=== PATIENT | female | born 1970 | race Caucasian/White ===

== ENCOUNTER 2019-04-23 17:28 | Emergency (ER) | payer BC, SELFPAY ==
[2019-04-23 17:29] VITALS: BP 146/91; PULSE 79; RESP 12; TEMP 36.4; O2SAT 100; BMI 24.5
--- NOTE | 2019-04-23 17:45 | CT_ITS ---
STUDY: CT BRAIN WITH AND WITHOUT CONTRAST REASON FOR EXAM: Female, 48 years old. Headache RADIATION DOSAGE (If Supplied By Facility): DLP = ( 1490.98 ) mGycm TECHNIQUE: Transaxial CT imaging of the brain was performed pre and post contrast administration. The examination was performed with intravenous administration of 100ml ml of Isovue 300 contrast material. Individualized dose optimization techniques were used for this CT. COMPARISON: CT head July 08, 2008 FINDINGS: There is no acute bleed or infarct. There are normal white matter tracts. There is no abnormal enhancement following contrast administration. There are no intracranial masses identified. The ventricles are normal in configuration. There is no hydrocephalus. The visualized paranasal sinuses are clear. The mastoid air cells are well aerated. There is no skull fracture. CT/Brain/Head W/WO Contrast IMPRESSION: No acute intracranial abnormality. Electronically Signed: Lucio Diamond, at 19:20 EDT Tel , Service support ,
[2019-04-23] MEDS: 0.9% Normal Saline 1,000 ML 1000 ML IV (18:15)
[2019-04-23] MEDS: Metoclopramide 10 MG/2 ML Vial IV (18:15)
[2019-04-23] MEDS: DiphenhydrAMINE 50 MG/ML Syringe 25 MG IV (18:15)
--- NOTE | 2019-04-23 18:21 | ED.RN ---
LONG 20 GAUGE ANGIO PLACED TO RT BRACHIAL VEIN UNDER GUIDED ULTRASOUND. PT TOLERATED WELL
[2019-04-23 18:25] LABS: Absolute Lymphocyte Count 1.25 X10^3/ul (0.83-4.51); Absolute Neutrophil Count 6.3 X10^3/uL (2.0-7.7); Basophil# 0.01 X10^3/uL; Basophil% 0.1 % (0-1); Eosinophil# 0.11 X10^3/uL; Eosinophils% 1.3 % (0-5); Hematocrit 40.8 % (37-47); Lymphocyte # 1.25 X10^3/ul (4.0); Lymphocyte % 15.3 % (19-41); Mean Corp Hgb Conc 34.3 g/gl (32-36); Mean Corpuscular Hgb 28.6 pg (27.0-32.0); Mean Corpuscular Volume 83.4 fL (81-99); Monocyte# 0.52 X10^3/uL; Monocyte% 6.4 % (0-10); Neutrophil # 6.27 X10^3/uL (2.7-7.7); Neutrophil % 76.8 % (47-70); POSITIVE COUNT NO; POSITIVE DIFFERENTIAL NO; POSITIVE MORPHOLOGY NO; Platelet Count 201 K/mm3 (150-450); RBC Distribution Width CV 13.1 % (11.6-14.6); RBC Distribution Width SD 39.5 fl (35.1-43.9); Red Blood Count 4.89 M/mm3 (4.2-5.4); White Blood Count 8.2 K/mm3 (4.4-11.0)
[2019-04-23 18:44] LABS: Anion Gap 6 (5-15); BUN 13 mg/dL (7-18); BUN/Creat Ratio 14.8 RATIO (10-20); Calcium,Total 9.4 mg/dL (8.5-10.1); Chloride 103 mmol/L (98-107); Creatinine, Serum 0.88 mg/dL (0.55-1.02); EST Glomerular Filtration Rate 73 mL/min (>60); Est Glom Filt Rate - Afr Amer 88 mL/min (>60); Estimated Creatinine Clearance 67.51 ml/min; Glucose 128 mg/dL (74-106); Potassium 3.4 mmol/L (3.5-5.1); Sodium Level 134 mmol/L (136-145)
[2019-04-23] MEDS: MethylPREDNISolone 125 MG/2 ML Vial IV (20:02)
[2019-04-23] MEDS: 0.9% Normal Saline 1,000 ML 150 ML IV (20:02)
--- NOTE | 2019-04-23 21:58 | ED.DCSUM_ITS ---
- ER Visit Summary Date of Service: 04/23/19 Chief Complaint: Headache History of Present Illness: The patient is a 48 F who presents with frontal headache that started late this morning. She describes some blurred vision along with nausea and vomiting. She states is a history of migraines but has not had a migraine in several years. Past history significant for factor V Leiden and prior PE. She is not currently on any anticoagulants. Patient denies any head trauma or URI symptoms. Physical Examination: Vital signs unremarkable. Patient lying in bed. She is anxious and tearful. Head and neck examination is unremarkable with no meningismus. Heart is regular rate and rhythm. Lung sounds are clear. Abdomen is soft and nontender. Neuro exam is normal. Test Results: CBC is unremarkable. Chemistry studies reveal a sodium of 134, potassium 3.4. CT with IV contrast was obtained. There is no acute abnormality noted. Emergency Department Course and Treatment: Patient was treated with Toradol, Reglan, Benadryl, and IV fluids. On repeat evaluation she reported minimal improvement. She received IV Depakote and Solu-Medrol. On repeat evaluation patient states that she is much improved. She will be discharged home with her . Treatment Plan: [] Disposition: Discharge Impression: Migraine, improved This note was generated with [employer] dictation software. It may contain incorrect words, spelling, and punctuation that were not noted in review of the chart prior to signing ED Disposition - Plan for ED Patient: Disposition: Home or Assisted Living Instructions: ED Headache Migraine Referrals: Justus Quiñones MD [Primary Care Provider] - 1-2 Weeks
[2019-04-23 22:00] VITALS: BP 98/60; PULSE 59; RESP 16; O2SAT 96
== END 2019-04-23 22:21 | disposition home or self-care (01) ==
PROVIDERS: Emergency Provider Emergency Medicine; Family Provider Family Medicine; PCP Family Medicine
DX: G43.909 Migraine, unspecified, not intractable, without status migrainosus (principal); D68.51 Activated protein C resistance; Z86.711 Personal history of pulmonary embolism; K21.9 Gastro-esophageal reflux disease without esophagitis
CPT/HCPCS: 70470; 80048; 85025; 96361; 96365; 96375; 99285; J7030; Q9967; A4216

== ENCOUNTER 2020-02-15 11:16 | Emergency (ER) | payer SELFPAY ==
[2019-07-16 10:46] VITALS: BMI 24.5
[2020-02-15 11:17] VITALS: BP 151/107; PULSE 92; RESP 16; TEMP 36.7; O2SAT 100; BMI 25.0
--- NOTE | 2020-02-15 11:27 | RAD_ITS ---
STUDY: X-RAY CHEST REASON FOR EXAM: Female, 49 years old. Cough, sob, hoarse, night sweats TECHNIQUE: AP upright portable view. COMPARISON: AP upright portable view. FINDINGS: The lungs are clear and expanded. There is no demonstrated pleural abnormality. Normal size heart. Normal mediastinum and sammie. Normal visualized pulmonary arteries. Normal visualized aortic arch and descending thoracic aorta. Normal visualized thoracic spine. Normal visualized ribs, clavicles, and shoulders. There is no demonstrated abnormality of the visualized soft tissue structures of the upper abdomen. RAD/Chest 1 View (Portable) IMPRESSION: Normal x-ray examination of the chest and unchanged since 10/09/2016. Electronically Signed: Salomon Varela MD at 12:15 EDT , Service support ,
--- NOTE | 2020-02-15 12:24 | ED.DCSUM_ITS ---
- ER Visit Summary Date of Service: 02/15/20 Chief Complaint: Shortness of breath History of Present Illness: The patient is a 49 F who presents with shortness of breath. She has had this for 2 days. She feels like she has a lot of nasal congestion and feels like she has hard time getting a deep breath. She has had a nonproductive cough. She has had some postnasal drip and drainage. Her voice is hoarse. She tried Tylenol for headache which did improve. She denies a sore throat. No fevers. Denies any contact with anybody with coronavirus. Physical Examination: Vital signs reviewed. HEENT exam unremarkable, except for some slight swollen turbinates bilaterally. Heart is regular rate and rhythm without murmurs. Lungs are clear to auscultation. Abdomen is soft and nontender. Extremities reveal no edema. Skin exam normal. Neurologic exam normal. Test Results: Chest x-ray normal Emergency Department Course and Treatment: The patient's lungs are clear and she has a normal x-ray. I feel that her shortness of air is likely due to her nasal congestion. I will treat her with Mucinex D and Flonase. She will follow-up with her PCP. Treatment Plan: [] Disposition: Discharge Impression: Sinusitis This note was generated with [employer] dictation software. It may contain incorrect words, spelling, and punctuation that were not noted in review of the chart prior to signing ED Disposition - Plan for ED Patient: Disposition: Home or Assisted Living Instructions: ED Sinusitis No Abx Prescriptions: Fluticasone 0.05% [Flonase Nasal [place]] 1 spray NASAL BID #1 bottle Transmission Status: Pending to [facility] Guaifenesin/Pseudoephedrne HCl [Mucinex D ER 600-60 mg Tablet] 1 ea PO BID #14 [id number].er.[id number] Transmission Status: Pending to [facility] [address] Referrals: Justus Quiñones MD [Primary Care Provider] -
== END 2020-02-15 12:52 | disposition home or self-care (01) ==
PROVIDERS: Emergency Provider Emergency Medicine; PCP Family Medicine
DX: J32.9 Chronic sinusitis, unspecified (principal); E78.00 Pure hypercholesterolemia, unspecified
CPT/HCPCS: 71045; 99282

== ENCOUNTER 2020-09-29 07:52 | Emergency (ER) | payer MEDICAID, SELFPAY ==
[2020-09-29 07:54] VITALS: BP 153/96; PULSE 79; RESP 19; TEMP 36.8; O2SAT 100; BMI 26.5
--- NOTE | 2020-09-29 08:07 | EKG12_ITS ---
Test Reason : CP Blood Pressure : / mmHG Vent. Rate : 073 BPM Atrial Rate : 073 BPM P-R Int : 148 ms QRS Dur : 074 ms QT Int : 388 ms P-R-T Axes : 030 036 032 degrees QTc Int : 427 ms Normal sinus rhythm with sinus arrhythmia Septal infarct , age undetermined Abnormal ECG Confirmed by ASHLEY CARLSON, OCTAVIA ([id number]), art editor TAN SANCHEZ ([id number]) on 09/30/2020 10:50:39 AM Referred By: Confirmed By:OCTAVIA RAMIREZ MD
--- NOTE | 2020-09-29 08:07 | RAD_ITS ---
STUDY: X-RAY CHEST REASON FOR EXAM: Female, 49 years old. Sternal pain radiating to left neck and shoulder. TECHNIQUE: Single AP portable view of the chest. COMPARISON: Comparison is made with prior study dated 02/15/2020. FINDINGS: EKG electrodes are seen. The lungs are clear and expanded. Scattered calcified granulomas. There is no demonstrated pleural abnormality. Normal size heart. Normal mediastinum and sammie. Normal visualized pulmonary arteries. Normal visualized aortic arch and descending thoracic aorta. Normal visualized thoracic spine. There is evidence of prior fusion in the lower cervical spine. There is no demonstrated abnormality of the visualized soft tissue structures of the upper abdomen. RAD/Chest 1 View (Portable) IMPRESSION: No acute abnormality is seen. Electronically Signed: Phuc Noonan, at 9:03 EST , Service support ,
--- NOTE | 2020-09-29 08:07 | CT_ITS ---
STUDY: CTA CHEST REASON FOR EXAM: Female, 49 years old. STERNAL CP RADIATING DOWN ARM, HX PE, FACTOR V BLOOD DISORDER RADIATION DOSAGE (If Supplied By Facility): CTDIvol = ( 8.84 ) mGy, DLP = ( 313.59 ) mGycm TECHNIQUE: The examination was performed with the intravenous administration of IV 100mL Isovue-370. Post-processing of the angiographic images was performed, with multiplanar reformation and 3D reconstruction. Individualized dose optimization techniques were used for this CT. COMPARISON: Comparison is made with prior study dated 12/01/2011. FINDINGS: Small benign-appearing bilateral axillary lymph nodes. Normal enhancement of the main pulmonary artery and right and left pulmonary arteries. Normal enhancement of the bilateral peripheral pulmonary arteries. There is no demonstrated pulmonary embolism. Normal thoracic aorta and visualized great vessels. There is no demonstrated aortic dissection. Normal heart and pericardium. Normal mediastinum. Normal hilar regions. Normal visualized trachea and bronchi. The lungs are well expanded. Stable minimal scarring at the right lung base. Normal pleura. Normal chest wall structures. There are degenerative changes of thoracic spine. Normal visualized upper abdomen. CT/CTA Chest W/WO Contrast IMPRESSION: Normal CTA chest examination, without a demonstrated pulmonary embolism or arterial dissection. No acute abnormality is seen. Electronically Signed: Phuc Noonan, at 9:02 EST , Service support ,
--- NOTE | 2020-09-29 08:10 | ED.VISSUMM ---
- ER Visit Summary Date of Service: 09/29/20 Chief Complaint: [Chest and back pain] History of Present Illness: The patient is a 49 F [presents to the emergency department with pain in her back that radiates through to the left side of her chest. Patient states that she was laying in bed around 7 AM when she scooted her moved and developed sudden onset of severe pain in her neck and upper back that radiated through to the front of her chest. Pain is worse with movement and taking a deep breath. She does have history of PE 30 years ago after a surgery. Patient also with history of factor V Leiden. Patient denies recent travel or surgery. She denies recent illness. She denies fever or cough. She denies any COVID-19 exposures. She denies nausea or vomiting. She is not had discomfort like this before. She rates her pain an 8 out of 10. She describes the pain as sharp and stabbing.] Physical Examination: [HEENT-PERRLA, EOMI. Cranial nerves II through XII grossly intact. TMs clear. Mucous membranes moist. No adenopathy. Cardiovascular-regular rate and rhythm without murmur or ectopy Lungs-clear to auscultation, chest wall stable without crepitus or subcu emphysema Abdomen-normoactive bowel sounds, soft, nontender, no rebound or rigidity, no peritoneal signs. Back exam-patient has no tenderness over the thoracic or lumbar spine. No tenderness over the C-spine. Patient does have pain with movement that seems to reproduce her pain. Tendon reflexes are plus 2 out of 4 bilaterally in the upper and lower extremities. Extremities-intact ?4, normal range of motion, normal pulses, atraumatic] Test Results: [EKG obtained on arrival shows sinus rhythm with a ventricular rate 73 bpm with no acute segment changes.] CBC with differential should awaken 4.1, hemoglobin 12.8, hematocrit 40, placed 284. Chemistries unremarkable. Troponin is less than 0.015. CTA of the chest was normal. There is no evidence of PE or dissection. Emergency Department Course and Treatment: [IV line established on arrival. Patient was given morphine and Zofran. Patient had already received aspirin by EMS. She did have good pain relief initially however after going to CT and moving around her pain started to come back and she required more pain medication. I ordered a milligram of Dilaudid as well as a milligram of Ativan. Patient continues to state that the pains, coming from her upper left back and neck kind of radiating into her left shoulder. I suspect likely musculoskeletal etiology for her symptoms.] She has no radiculopathic symptoms. Treatment Plan: [Follow-up with primary care physician in 3 to 5 days. Patient given a prescription for Flexeril and [place]. Advised to return if worsening pain, increasing shortness of breath, or condition should worsen anyway.] Disposition: [Discharged home in stable condition] Impression: [Neck and back pain Atypical chest pain] This note was generated with [employer] dictation software. It may contain incorrect words, spelling, and punctuation that were not noted in review of the chart prior to signing ED Disposition - Plan for ED Patient: Referrals: Justus Quiñones MD [Primary Care Provider] -
[2020-09-29 08:17] LABS: Absolute Lymphocyte Count 1.59 X10^3/uL (0.83-4.51); Absolute Neutrophil Count 1.9 X10^3/uL (2.0-7.7); Basophil# 0.02 X10^3/uL; Basophil% 0.5 % (0-1); Eosinophil# 0.13 X10^3/uL; Eosinophils% 3.2 % (0-5); Hematocrit 40.4 % (37-47); Hemoglobin 12.8 g/dL (12.0-15.0); Lymphocyte # 1.59 X10^3/ul (4.0); Lymphocyte % 39.2 % (19-41); Mean Corp Hgb Conc 31.7 g/dL (32-36); Mean Corpuscular Hgb 27.1 pg (27.0-32.0); Mean Corpuscular Volume 85.4 fL (81-99); Mean Platelet Vol. 11.2 fl (6.2-12.0); Monocyte# 0.43 X10^3/uL; Monocyte% 10.6 % (0-10); NRBC Flagged by Analyzer 0 % (0-5); Neutrophil # 1.87 X10^3/uL (2.7-7.7); Platelet Count 284 K/mm3 (150-450); RBC Distribution Width CV 13.8 % (11.6-14.6); RBC Distribution Width SD 43.2 fl (35.1-43.9); Red Blood Count 4.73 M/mm3 (4.2-5.4); White Blood Count 4.1 K/mm3 (4.4-11.0)
[2020-09-29] MEDS: Morphine 4 MG/ML Syringe IV (08:18)
[2020-09-29] MEDS: Ondansetron 4 MG/2 ML Vial IV (08:19)
[2020-09-29] MEDS: 0.9% Normal Saline 1,000 ML 150 ML IV (08:23)
[2020-09-29 08:35] LABS: Anion Gap 4 (5-15); BUN 14 mg/dL (7-18); BUN/Creat Ratio 14.9 RATIO (10-20); Calcium,Total 8.9 mg/dL (8.5-10.1); Chloride 111 mmol/L (98-107); Creatinine, Serum 0.94 mg/dL (0.55-1.02); EST Glomerular Filtration Rate 67 mL/min (>60); Est Glom Filt Rate - Afr Amer 81 mL/min (>60); Estimated Creatinine Clearance 62.52 ml/min; Glucose 98 mg/dL (74-106); Potassium 4.2 mmol/L (3.5-5.1); Sodium Level 141 mmol/L (136-145)
[2020-09-29 09:13] VITALS: BP 135/99; PULSE 87; RESP 19; O2SAT 99
--- NOTE | 2020-09-29 09:13 | DCINST.ED_ITS ---
ED Disposition - Plan for ED Patient: Instructions: ED Chest Pain Atypical Unkn Cause, ED Spasm Back No Trauma Prescriptions: cycloBENZAPRine HCl [Flexeril] 10 mg PO TID PRN #20 tab PRN Reason: Muscle Spasm Prescription Printed Hydrocodone Bitart/Apap 5-325 [[place] 5MG-325MG] 1 tab PO Q4H PRN PRN 2 Days #15 tab PRN Reason: Pain Prescription Printed Referrals: Justus Quiñones MD [Primary Care Provider] - 3-5 Days
[2020-09-29] MEDS: LORazepam 2 MG/ML Syringe 1 MG IV (09:23)
[2020-09-29] MEDS: HYDROmorphone 1 MG/ML Syringe IV (09:23)
[2020-09-29 09:37] VITALS: RESP 18
== END 2020-09-29 09:39 | disposition home or self-care (01) ==
LOC: ED 08:35
PROVIDERS: Emergency Provider Emergency Medicine; PCP Family Medicine
DX: R07.89 Other chest pain (principal); M54.9 Dorsalgia, unspecified; M54.2 Cervicalgia; D68.51 Activated protein C resistance; Z86.711 Personal history of pulmonary embolism
CPT/HCPCS: 36415; 71045; 71275; 80048; 84484; 85025; 93005; 96361; 96374; 96375; 99285; J7030; Q9967; A4216; J2405

== ENCOUNTER 2020-11-02 15:00 | Emergency (ER) | payer MEDICAID, SELFPAY ==
[2020-11-02 15:02] VITALS: BP 162/112; PULSE 95; RESP 20; TEMP 36.3; O2SAT 100; BMI 26.7
--- NOTE | 2020-11-02 15:28 | ED.VISSUMM ---
- ER Visit Summary Date of Service: 11/02/20 Chief Complaint: Rash, possible allergic reaction History of Present Illness: The patient is a 50 F who presents with rash and possible allergic reaction that began today. Patient states this started approximately 30 minutes after taking Tessalon Perles. Patient states it has been constant. Patient denies any difficulty breathing or difficulty swallowing. Patient states she is also on antibiotics for a sinus infection. Patient does admit to a sinus headache and pressure. Patient denies any chest pain. Patient denies any fevers or chills. Patient states she did have a COVID-19 test recently which was negative. Physical Examination: Vital signs are stable. Patient is afebrile. Patient is in no acute distress. Oral mucosa is pink and moist. Oropharynx is clear. Airway is patent. Neck is supple. Trachea is midline. There is no JVD. Heart was regular rate and rhythm. Lungs are clear and equal bilaterally. There is good respiratory effort noted. Abdomen is soft. Bowel sounds are normal. There is no tenderness. Cranial nerves II through XII are intact. There are no focal motor or sensory deficits noted. Skin is warm and dry. There is a patchy urticarial rash noted over the face, chest, back, and abdomen. There are also some urticaria noted on the upper extremities. Emergency Department Course and Treatment: Patient was given a dose of Benadryl and prednisone here. Patient was given a prescription for prednisone. Patient was instructed to follow-up with her primary care physician in 5 to 7 days. Patient was instructed to stop taking the Tessalon Perles. Patient was instructed to take other ztpy-dxz-edjelrr cough medications as needed. Patient understood and was agreeable with the plan. All questions were answered. Disposition: Discharge home Impression: 1. Urticaria This note was generated with [employer] dictation software. It may contain incorrect words, spelling, and punctuation that were not noted in review of the chart prior to signing ED Disposition - Plan for ED Patient: Disposition: Home or Assisted Living Diagnosis: Urticaria Instructions: ED General Allergic Reactions Prescriptions: Prednisone [Deltasone] 60 mg PO DAILY #12 tab Prescription Printed Referrals: Justus Quiñones MD [Primary Care Provider] - 5-7 Days
[2020-11-02] MEDS: predniSONE 20 MG Tablet 60 MG PO (15:52)
[2020-11-02] MEDS: DiphenhydrAMINE 25 MG Capsule PO (15:52)
== END 2020-11-02 15:52 | disposition home or self-care (01) ==
PROVIDERS: Emergency Provider Emergency Medicine; PCP Family Medicine
DX: L50.9 Urticaria, unspecified (principal); R05 Cough; R11.0 Nausea; R51.9 Headache, unspecified; K21.9 Gastro-esophageal reflux disease without esophagitis; E78.00 Pure hypercholesterolemia, unspecified; D68.51 Activated protein C resistance; F41.9 Anxiety disorder, unspecified; Z86.711 Personal history of pulmonary embolism
CPT/HCPCS: 99283

== ENCOUNTER 2020-11-09 11:17 | Emergency (ER) | payer MEDICAID, SELFPAY ==
[2020-11-09 11:17] VITALS: BP 150/92; PULSE 104; RESP 19; TEMP 36.3; O2SAT 100; BMI 28.1
--- NOTE | 2020-11-09 11:28 | EKG12_ITS ---
Test Reason : CP Blood Pressure : / mmHG Vent. Rate : 094 BPM Atrial Rate : 094 BPM P-R Int : 144 ms QRS Dur : 086 ms QT Int : 342 ms P-R-T Axes : 048 023 077 degrees QTc Int : 427 ms Normal sinus rhythm Normal ECG Confirmed by CHIO CARLSON, CUCA ([id number]), editorial manager TAN SANCHEZ ([id number]) on 11/14/2020 9:26:36 AM Referred By: SOHAN Confirmed By:MILLY BARROSO MD
--- NOTE | 2020-11-09 11:29 | ED.VISSUMM ---
- ER Visit Summary Date of Service: 11/09/20 Chief Complaint: Epigastric abdominal pain History of Present Illness: The patient is a 50 F who presents with epigastric abdominal pain. She has been dealing with this issue for quite some time but got worse today. She describes a burning in her epigastric region. Does not radiate. Nothing makes it better or worse. She has nausea without vomiting. No diarrhea or constipation. She denies any urinary symptoms. She tried Phenergan at home. She is already on Protonix and famotidine. She has had 3 C-sections but no other abdominal surgeries. She denies fevers. She has been following with her PCP and they have been trying to do some outpatient procedures and tests but her insurance has denied 1 of these but she was not sure specifically which one. Physical Examination: Vital signs reviewed. HEENT exam unremarkable. Heart is regular rate and rhythm without murmurs. Lungs are clear to auscultation. Abdomen is soft with epigastric tenderness to palpation but there is no guarding or rebound tenderness. Extremities reveal no edema. Skin exam normal. Neurologic exam normal. Test Results: Laboratory studies are unremarkable except for creatinine 1.04. EKG was normal. Emergency Department Course and Treatment: The patient was given a GI cocktail and Protonix IV. She states that the burning sensation related but she is still having some pain. I will give her 1 dose of morphine here for pain. I will add Carafate to her medication regimen to see if this will help. I feel she needs GI follow-up for likely endoscopy. Treatment Plan: [] Disposition: Discharge Impression: Acute gastritis This note was generated with [employer] dictation software. It may contain incorrect words, spelling, and punctuation that were not noted in review of the chart prior to signing ED Disposition - Plan for ED Patient: Disposition: Home or Assisted Living Instructions: ED Gastritis (Adult) Prescriptions: Sucralfate [Carafate] 1 gm PO 4X/DAY #120 tab Transmission Status: Pending to [facility] [facility] Referrals: Justus Quiñones MD [Primary Care Provider] -
[2020-11-09] MEDS: Mag Hydrox/Al Hydrox/Simeth 30 ML UDC PO (11:52)
[2020-11-09 12:00] LABS: Absolute Lymphocyte Count 2.68 X10^3/uL (0.83-4.51); Absolute Neutrophil Count 3.2 X10^3/uL (2.0-7.7); Basophil# 0.01 X10^3/uL; Basophil% 0.1 % (0-1); Eosinophil# 0.16 X10^3/uL; Eosinophils% 2.4 % (0-5); Hematocrit 43.8 % (37-47); Hemoglobin 14.5 g/dL (12.0-15.0); Lymphocyte # 2.68 X10^3/ul (4.0); Lymphocyte % 39.9 % (19-41); Mean Corp Hgb Conc 33.1 g/dL (32-36); Mean Corpuscular Hgb 27.8 pg (27.0-32.0); Mean Corpuscular Volume 83.9 fL (81-99); Mean Platelet Vol. 11.1 fl (6.2-12.0); Monocyte# 0.61 X10^3/uL; Monocyte% 9.1 % (0-10); NRBC Flagged by Analyzer 0 % (0-5); Neutrophil # 3.22 X10^3/uL (2.7-7.7); Neutrophil % 48.1 % (47-70); Platelet Count 298 K/mm3 (150-450); RBC Distribution Width CV 17.1 % (11.6-14.6); RBC Distribution Width SD 45.6 fl (35.1-43.9); Red Blood Count 5.22 M/mm3 (4.2-5.4); White Blood Count 6.7 K/mm3 (4.4-11.0)
[2020-11-09 12:11] LABS: AST(SGOT) 14 U/L (15-37); Alanine Aminotransfer ALT/SGPT 27 U/L (13-56); Albumin, Serum 4.1 g/dL (3.2-5.0); Alkaline Phosphatase 92 U/L (45-117); Anion Gap 6 (5-15); BUN 24 mg/dL (7-18); BUN/Creat Ratio 23.1 RATIO (10-20); Bilirubin, Direct 0.09 mg/dL (0.00-0.30); Calcium,Total 10.3 mg/dL (8.5-10.1); Chloride 105 mmol/L (98-107); Creatinine, Serum 1.04 mg/dL (0.55-1.02); EST Glomerular Filtration Rate 60 mL/min (>60); Est Glom Filt Rate - Afr Amer 72 mL/min (>60); Estimated Creatinine Clearance 55.88 ml/min; Globulin 4.2 g/dL (2.2-4.2); Glucose 89 mg/dL (74-106); Lipase 216 U/L (73-393); Potassium 3.8 mmol/L (3.5-5.1); Protein, Total 8.3 g/dL (6.4-8.2); Sodium Level 138 mmol/L (136-145)
[2020-11-09 12:35] VITALS: BP 114/98; PULSE 72; RESP 15; O2SAT 99
[2020-11-09] MEDS: Sucralfate 1 GM Tablet PO (12:49)
== END 2020-11-09 12:49 | disposition home or self-care (01) ==
PROVIDERS: Emergency Provider Emergency Medicine; PCP Family Medicine
DX: K29.00 Acute gastritis without bleeding (principal)
CPT/HCPCS: 80048; 80076; 83690; 85025; 93005; 96374; 99284; J7050; A4216; J3490

== ENCOUNTER 2021-04-17 11:10 | Emergency (ER) | payer MEDICAID, SELFPAY ==
[2021-04-17 11:11] VITALS: PULSE 134; RESP 30; TEMP 36.6; O2SAT 100; BMI 25.5
[2021-04-17 11:13] VITALS: BP 177/113
--- NOTE | 2021-04-17 11:31 | EKG12_ITS ---
Test Reason : Blood Pressure : / mmHG Vent. Rate : 113 BPM Atrial Rate : 113 BPM P-R Int : 140 ms QRS Dur : 078 ms QT Int : 340 ms P-R-T Axes : 063 035 025 degrees QTc Int : 466 ms Sinus tachycardia with Premature atrial complexes ST & T wave abnormality, consider lateral ischemia Abnormal ECG Confirmed by ASHLEY CARLSON, OCTAVIA ([id number]), metropolitan editor KEN KEENAN ([id number]) on 04/21/2021 8:12:42 AM Referred By: AMILCAR Confirmed By:OCTAVIA RAMIREZ MD
--- NOTE | 2021-04-17 11:32 | EDS_ITS ---
HPI History of Present Illness Chief Complaint: Chest Pain Detail of Chief Complaint: Primary complaint is lightheadedness and concern for heatstroke Informant: patient Onset/Context/Timing Onset: Hours Context: Sudden Onset Timing: Continuous Quality: Cramping thighs, tingling, lightheadedness and dry mouth Location: Mowing the yard Current Severity: Moderate Maximum Severity: Severe Worsened by: Lack of p.o. intake Relieved by: None Associated Symptoms Associated Symptoms: Lightheadedness Narrative Narrative: Patient is a 50-year-old woman with history of GERD, hiatal hernia, factor V Leiden mutation with prior history of PE and hyperlipidemia who presents with sudden onset of lightheadedness. She states she began mowing at 930. She stopped to take a drink of Gatorade. She became lightheaded. She is complaining of cramps in her lower extremities and numbness. She complains of intermittent chest discomfort. She also reports shortness of breath and being anxious. Patient denies history of coronary disease. Patient denies leg pain, swelling discoloration. Patient denies recent travel or surgery. She denies history of coronary disease. She denies headache, visual, ocular auditory symptoms. She does report dry mouth and lightheadedness. She denies black or maroon-colored stool. She has not urinated since this morning. She has been under significant stress with recent of her dad and other issues in the family. Prior similar symptoms: No Recent Illness/Hospitalization: No [facility] Medical History Anxiety Factor 5 Leiden mutation, heterozygous Hypercholesteremia Hyperlipidemia Home Medications pantoprazole 40 mg PO DAILY #30 tab 10/10/16 [Rx Last Taken Unknown] pravastatin 20 mg PO DAILY 09/29/20 [History Last Taken Unknown] Allergy/AdvReac Type Severity Reaction Status Date / Time latex Allergy Rash Verified 04/17/21 11:11 Penicillins Allergy Other Verified 04/17/21 11:11 acetaminophen [From Tylenol] AdvReac Nausea Verified 04/17/21 11:11 naproxen [From Aleve] AdvReac Nausea/Vom/ Verified 04/17/21 11:11 Diarrhea Rrvfnas-Bhb-Alu Reductase AdvReac Other Verified 04/17/21 11:11 Inhibitor Family History Mother Diabetes Grandmother Cervical cancer Surgical History H/O neck surgery S/P S/P hysterectomy Social History Smoking Status: Never smoker alcohol intake: current alcohol intake frequency: holidays/special occasions only substance use type: does not use caffeine: Yes what type of physical activity do you participate in: none seatbelt use: sometimes do you feel safe at home: Yes 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 [employer] ED Constitutional Constitutional ED: Denies chills, fever(s) or subjective Eyes Eyes: Denies blurry vision, change in vision or diplopia ENT ENT ED: Denies ear pain, rhinorrhea or sore throat Cardiovascular Cardiovascular: Reports chest pain and palpitations; Denies orthopnea, paroxysmal nocturnal dyspnea or racing heartbeat Respiratory/Chest Respiratory/Chest: Reports dyspnea; Denies cough, dyspnea on exertion, orthopnea, paroxysmal nocturnal dyspnea or sputum Gastrointestinal Gastrointestinal: Reports nausea; Denies abdominal pain, constipation, diarrhea or vomiting Genitourinary Genitourinary ED: Denies dysuria or hematuria Musculoskeletal Musculoskeletal: Reports myalgias; Denies arthralgias, back pain or neck pain Integumentary Denies abscess, Abrasions or rash Neurologic Neurologic: Reports paresthesias and weakness; Denies headache(s) Psychiatric Psychiatric: Reports anxiety EXAM Physical Exam Const Vital Signs: 04/17/21 11:11 04/17/21 11:13 04/17/21 11:15 Temperature 98 F Temperature Source Oral Pulse Rate 134 H Respiratory Rate 30 H Respiratory Effort Short of Breath Blood Pressure 177/113 H Blood Pressure Mean 134 Pulse Ox 100 Oxygen Delivery Method Room Air 04/17/21 13:41 Temperature Temperature Source Pulse Rate 74 Respiratory Rate 16 Respiratory Effort Blood Pressure 117/69 Blood Pressure Mean 85 Pulse Ox 100 Oxygen Delivery Method Room Air Positive well nourished and well developed General Appearance ED: well developed and other Patient is breathing rapidly and appears anxious. HEENT Reports TM's clear and moist mucous membranes Negative for trauma or tenderness Tympanic Membrane ED: Yes TM's clear Eyes PERRL and EOMs intact bilaterally General Eye ED: Negative for pale conjunctiva or scleral icterus Neck no lymphadenopathy, supple and no JVD Chest Wall inspection of chest normal Resp normal respiratory effort and clear to auscultation bilaterally Effort and Inspection: Negative for pain with movement Auscultation: Negative for diminished lung sounds Cardio regular rhythm, S1 normal heart sound, S2 normal heart sound and no murmurs Rate: tachycardic GI normal to inspection, nondistended, normoactive bowel sounds and non-tender Palpation: soft Back/Spine no CVA tenderness Thoracic Spine / Upper Back: Negative for paraspinal muscle tenderness Extremity normal to inspection Extremity Narrative: There is no asymmetry, swelling, discoloration, leg vein distention, palpable cords or tenderness along the distribution of the deep venous system. General Extremety ED: Negative for edema or tenderness General Extremity: Negative for edema Neuro oriented x3, CN's II-XII intact bilaterally and no sensory deficits noted Sensorium / Orientation: alert Motor Exam: strength 5/5 throughout Psych mental status grossly normal Skin no rashes or lesions noted and no wounds MDM MDM MDM Narrative Medical decision making narrative: Suspect this is heat related. 2 L of normal saline was ordered. Electrolyte panel was ordered to assess renal function. CBC to rule out anemia. EKG was obtained per nurse protocol. Patient was treated with Zofran for nausea. I was then informed that she feels anxious. She was treated with Ativan. Lab Data Attestation: I reviewed the patient's lab results. Labs: Laboratory Results - last 24 hr 04/17/21 04/17/21 11:20 11:20 WBC 7.2 RBC 5.10 Hgb 12.9 Hct 40.7 MCV 79.8 L MCH 25.3 L MCHC 31.7 L RDW Std Deviation 42.7 RDW Coeff of Marcie 14.8 H Plt Count 347 MPV 12.0 Immature Gran % (Auto) 0.300 Neut % (Auto) 38.0 L Lymph % (Auto) 50.6 H [place] % (Auto) 9.3 Eos % (Auto) 1.5 Baso % (Auto) 0.3 Absolute Neuts (auto) 2.8 Absolute Lymphs (auto) 3.66 Nucleated RBC % 0 Sodium 140 Potassium 3.3 L Chloride 104 Carbon Dioxide 20.0 L Anion Gap 16 H BUN 10 Creatinine 1.17 H Estim Creat Clear Calc 49.67 Est GFR (MDRD) Af Amer 63 Est GFR (MDRD) Non-Af 52 L BUN/Creatinine Ratio 8.5 L Glucose 103 Calcium 9.8 Total Bilirubin 0.80 AST 20 ALT 19 Alkaline Phosphatase 103 Total Protein 7.8 Albumin 4.2 Globulin 3.6 Albumin/Globulin Ratio 1.2 She was informed of her lab results and importance of hydrating prior to activity and during activity. EKG Initial EKG: Attestation: I personally reviewed and interpreted this EKG as follows: Interpretation: Sinus Tachycardia Comments: Sinus tachycardia with a ventricular rate 113. NH interval 240 ms. Cures duration 78 ms. QT duration 3 and 40 ms. [place] is normal. There is nonspecific lateral changes noted. This may be due to hyperventilation. Will reassess. Discharge Plan Triage Chief Complaint: Chest Pain ED Provider: Shimon Smallwood Dx/Rx/DC Orders Clinical Impression: Exhaustion, heat, due to water depletion, Heat cramp, initial encounter, Dehydration, moderate, Acute kidney insufficiency Instructions: ED Dehydration (Adult), ED Heat Cramps, ED Heat Exhaustion, ED Renal Insufficiency Prescriptions: No Action pantoprazole 40 MG tablet 40 mg PO DAILY Qty: 30 RF: 2 pravastatin 20 MG tablet 20 mg PO DAILY RF: 0 Primary Care Provider: Justus Quiñones Referrals: Justus Quiñones MD [Primary Care Provider] - 3-5 Days if not improving Disposition Disposition: Home, self care
[2021-04-17] MEDS: 0.9% Normal Saline 1,000 ML 1000 ML IV ×2 (11:48→12:50)
[2021-04-17] MEDS: Ondansetron 4 MG/2 ML Vial IV (11:49)
[2021-04-17] MEDS: LORazepam 2 MG/ML Syringe 0.5 MG IV (11:54)
[2021-04-17 12:01] LABS: Absolute Lymphocyte Count 3.66 X10^3/uL (0.83-4.51); Absolute Neutrophil Count 2.8 X10^3/uL (2.0-7.7); Basophil# 0.02 X10^3/uL; Basophil% 0.3 % (0-1); Eosinophil# 0.11 X10^3/uL; Eosinophils% 1.5 % (0-5); Hematocrit 40.7 % (37-47); Hemoglobin 12.9 g/dL (12.0-15.0); Lymphocyte # 3.66 X10^3/ul (0.83-4.51); Lymphocyte % 50.6 % (19-41); Mean Corp Hgb Conc 31.7 g/dL (32-36); Mean Corpuscular Hgb 25.3 pg (27.0-32.0); Mean Corpuscular Volume 79.8 fL (81-99); Monocyte# 0.67 X10^3/uL; Monocyte% 9.3 % (0-10); NRBC Flagged by Analyzer 0 % (0-5); Neutrophil # 2.76 X10^3/uL (2.7-7.7); Platelet Count 347 K/mm3 (150-450); RBC Distribution Width CV 14.8 % (11.6-14.6); RBC Distribution Width SD 42.7 fl (35.1-43.9); White Blood Count 7.2 K/mm3 (4.4-11.0)
[2021-04-17 12:18] LABS: ALB/GLOB Ratio 1.2 RATIO (0.9-2.4); AST(SGOT) 20 U/L (15-37); Alanine Aminotransfer ALT/SGPT 19 U/L (13-56); Albumin, Serum 4.2 g/dL (3.2-5.0); Alkaline Phosphatase 103 U/L (45-117); Anion Gap 16 (5-15); BUN 10 mg/dL (7-18); BUN/Creat Ratio 8.5 RATIO (10-20); Calcium,Total 9.8 mg/dL (8.5-10.1); Chloride 104 mmol/L (98-107); Creatinine, Serum 1.17 mg/dL (0.55-1.02); EST Glomerular Filtration Rate 52 mL/min (>60); Est Glom Filt Rate - Afr Amer 63 mL/min (>60); Estimated Creatinine Clearance 49.67 ml/min; Globulin 3.6 g/dL (2.2-4.2); Glucose 103 mg/dL (74-106); Potassium 3.3 mmol/L (3.5-5.1); Protein, Total 7.8 g/dL (6.4-8.2); Sodium Level 140 mmol/L (136-145)
[2021-04-17 13:41] VITALS: BP 117/69; PULSE 74; RESP 16; O2SAT 100
[2021-04-17 14:23] VITALS: BP 129/110; PULSE 69; RESP 13; O2SAT 100
== END 2021-04-17 14:24 | disposition home or self-care (01) ==
PROVIDERS: Emergency Provider Emergency Medicine; PCP Family Medicine
DX: T67.2XXA Heat cramp, initial encounter (principal); N28.9 Disorder of kidney and ureter, unspecified; E86.0 Dehydration; D68.51 Activated protein C resistance; E78.00 Pure hypercholesterolemia, unspecified; E78.5 Hyperlipidemia, unspecified; F41.9 Anxiety disorder, unspecified; K21.9 Gastro-esophageal reflux disease without esophagitis; Z79.1 Long term (current) use of non-steroidal anti-inflammatories (NSAID); Z86.711 Personal history of pulmonary embolism
CPT/HCPCS: 80053; 85025; 93005; 96361; 96374; 96375; 99284; J7030; A4216; J2405

== ENCOUNTER 2021-05-15 19:51 | Emergency (ER) | payer MEDICAID, SELFPAY ==
[2021-05-15 19:52] VITALS: BP 143/71; PULSE 109; RESP 20; TEMP 37.1; O2SAT 97; BMI 24.9
--- NOTE | 2021-05-15 20:09 | EKG12_ITS ---
Test Reason : ABD PAIN Blood Pressure : / mmHG Vent. Rate : 067 BPM Atrial Rate : 067 BPM P-R Int : 154 ms QRS Dur : 092 ms QT Int : 428 ms P-R-T Axes : 052 051 054 degrees QTc Int : 452 ms Normal sinus rhythm Nonspecific ST abnormality Abnormal ECG Confirmed by FABIOLA CARLSON, CECILE ([id number]), research editor KEN KEENAN ([id number]) on 05/17/2021 1:57:26 PM Referred By: EMELY Confirmed By:CECILE HICKS MD
--- NOTE | 2021-05-15 20:11 | EDS_ITS ---
HPI History of Present Illness Chief Complaint: Abd Pain Informant: patient Onset/Context/Timing Onset: Today Context: Sudden Onset Current Severity: Severe Maximum Severity: Severe Narrative Narrative: Patient presents with epigastric abdominal pain and vomiting after eating burritos this evening. She was given Zofran by EMS. On my arrival she is still dry heaving and complaining of epigastric pain and difficulty breathing. Patient when asked if she had prior gallbladder problems states it has been worked up before. Past medical history GERD Factor V Leiden PE Anxiety High cholesterol [facility] Medical History Anxiety Factor 5 Leiden mutation, heterozygous Hypercholesteremia Hyperlipidemia Home Medications pantoprazole 40 mg PO DAILY #30 tab 10/10/16 [Rx Last Taken Unknown] pravastatin 20 mg PO DAILY 09/29/20 [History Last Taken Unknown] dicyclomine 10 mg PO BID PRN #14 cap 05/15/21 [Rx Last Taken Unknown] fluoxetine 20 mg PO DAILY 05/15/21 [History Last Taken Unknown] ondansetron 4 mg PO Q8H PRN #10 tab 05/15/21 [Rx Last Taken Unknown] Allergy/AdvReac Type Severity Reaction Status Date / Time latex Allergy Rash Verified 05/15/21 19:57 Penicillins Allergy Other Verified 05/15/21 19:57 acetaminophen [From Tylenol] AdvReac Nausea Verified 05/15/21 19:57 naproxen [From Aleve] AdvReac Nausea/Vom/ Verified 05/15/21 19:57 Diarrhea Kcivphp-Iuv-Fjy Reductase AdvReac Other Verified 05/15/21 19:57 Inhibitor Family History Mother Diabetes Grandmother Cervical cancer Surgical History H/O neck surgery S/P S/P hysterectomy Social History Smoking Status: Never smoker alcohol intake: current alcohol intake frequency: holidays/special occasions only substance use type: does not use caffeine: Yes what type of physical activity do you participate in: none seatbelt use: sometimes do you feel safe at home: Yes 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 ED Constitutional Constitutional ED: Denies chills or fever(s) Eyes Eyes: Denies change in vision ENT ENT ED: Denies sore throat Cardiovascular Cardiovascular: Denies chest pain Respiratory/Chest Respiratory/Chest: Reports dyspnea; Denies cough Gastrointestinal Gastrointestinal: Reports abdominal pain, nausea and vomiting; Denies diarrhea Genitourinary Genitourinary ED: Denies dysuria Musculoskeletal Musculoskeletal: Denies back pain Integumentary Denies rash Neurologic Neurologic: Denies headache(s) or weakness Psychiatric Psychiatric: Denies anxiety or depression Endocrine Endocrinology: Denies polydipsia or polyuria Allergic/Immunologic Allergic/Immunologic ED: Denies urticaria EXAM Physical Exam Const Vital Signs: 05/15/21 19:52 05/15/21 20:52 05/15/21 21:00 Temperature 98.8 F Temperature Source Temporal Pulse Rate 109 H 75 Respiratory Rate 20 H 14 16 Blood Pressure 143/71 H 139/81 H Blood Pressure Mean 95 100 Pulse Ox 97 100 Oxygen Delivery Method Room Air Room Air Positive well nourished and well developed General Appearance ED: well developed HEENT Reports normocephalic and head/scalp atraumatic Eyes PERRL and EOMs intact bilaterally Neck supple Chest Wall inspection of chest normal and palpation of chest normal Resp normal respiratory effort and clear to auscultation bilaterally Cardio regular rhythm Rate: tachycardic GI Palpation: soft and tender epigastric Extremity normal to inspection Neuro oriented x3 and no sensory deficits noted Sensorium / Orientation: alert Motor Exam: strength 5/5 throughout Psych Attitude: agitated Mood & Affect: anxious Skin no rashes or lesions noted MDM MDM MDM Narrative Medical decision making narrative: Patient was placed on monitoring engineer. EKG, labs obtained. Patient was given morphine, Reglan, and Benadryl for pain and nausea. She had received Zofran with EMS. Lab Data Attestation: I reviewed the patient's lab results. Labs: Laboratory Results - last 24 hr 05/15/21 05/15/21 19:42 19:42 WBC 10.3 RBC 5.27 Hgb 13.2 Hct 41.6 MCV 78.9 L MCH 25.0 L MCHC 31.7 L RDW Std Deviation 43.1 RDW Coeff of Marcie 15.1 H Plt Count 382 MPV 11.4 Immature Gran % (Auto) 0.300 Neut % (Auto) 51.7 Lymph % (Auto) 40.3 [place] % (Auto) 6.2 Eos % (Auto) 1.3 Baso % (Auto) 0.2 Absolute Neuts (auto) 5.3 Absolute Lymphs (auto) 4.13 Nucleated RBC % 0 Sodium 138 Potassium 4.9 Chloride 105 Carbon Dioxide 24.0 Anion Gap 9 BUN 23 H Creatinine 1.21 H Estim Creat Clear Calc 48.03 Est GFR (MDRD) Af Amer 60 Est GFR (MDRD) Non-Af 50 L BUN/Creatinine Ratio 19.0 Glucose 98 Calcium 9.7 Total Bilirubin 0.40 Direct Bilirubin 0.06 AST 42 H ALT 25 Alkaline Phosphatase 111 Total Protein 8.2 Albumin 4.2 Globulin 4.0 Lipase 180 EKG Initial EKG: Attestation: I personally reviewed and interpreted this EKG as follows: Interpretation: Sinus Rhythm (Sinus at 67. No acute ST change.) Treatment and Re-Evaluation Comments:: On repeat evaluation patient is resting comfortably. She does feel significantly improved. Repeat abdominal examination was no focal tenderness, guarding, or rebound. Patient is currently taking Protonix. She will be written for Bentyl and Zofran. Discharge Plan Triage Chief Complaint: Abd Pain ED Provider: Ale Leary Dx/Rx/DC Orders Clinical Impression: Acute epigastric pain, Vomiting Instructions: ED Vomiting (Adult), ED Epigastric Pain Uncertain Cause Prescriptions: New ondansetron 4 mg tablet,disintegrating 4 mg PO Q8H PRN (Reason: nausea and vomiting) Qty: 10 RF: 0 dicyclomine 10 mg capsule 10 mg PO BID PRN (Reason: abdominal pain) Qty: 14 RF: 0 No Action pantoprazole 40 MG tablet 40 mg PO DAILY Qty: 30 RF: 2 pravastatin 20 MG tablet 20 mg PO DAILY RF: 0 fluoxetine 20 mg capsule 20 mg PO DAILY RF: 0 Primary Care Provider: Justus Quiñones Referrals: Justus Quiñones MD [Primary Care Provider] - 1 Week Disposition Disposition: Home, Self Care
[2021-05-15] MEDS: Morphine 4 MG/ML Syringe IV ×2 (20:16→22:03)
[2021-05-15] MEDS: 0.9% Normal Saline 1,000 ML 1000 ML IV (20:16)
[2021-05-15] MEDS: DiphenhydrAMINE 50 MG/ML Syringe 25 MG IV (20:17)
[2021-05-15] MEDS: Metoclopramide 10 MG/2 ML Vial 5 MG IV (20:17)
[2021-05-15 20:45] LABS: Absolute Lymphocyte Count 4.13 X10^3/uL (0.83-4.51); Absolute Neutrophil Count 5.3 X10^3/uL (2.0-7.7); Basophil# 0.02 X10^3/uL; Basophil% 0.2 % (0-1); Eosinophil# 0.13 X10^3/uL; Eosinophils% 1.3 % (0-5); Hematocrit 41.6 % (37-47); Hemoglobin 13.2 g/dL (12.0-15.0); Lymphocyte # 4.13 X10^3/ul (0.83-4.51); Lymphocyte % 40.3 % (19-41); Mean Corp Hgb Conc 31.7 g/dL (32-36); Mean Corpuscular Volume 78.9 fL (81-99); Mean Platelet Vol. 11.4 fl (6.2-12.0); Monocyte# 0.64 X10^3/uL; Monocyte% 6.2 % (0-10); NRBC Flagged by Analyzer 0 % (0-5); Neutrophil % 51.7 % (47-70); Platelet Count 382 K/mm3 (150-450); RBC Distribution Width CV 15.1 % (11.6-14.6); RBC Distribution Width SD 43.1 fl (35.1-43.9); Red Blood Count 5.27 M/mm3 (4.2-5.4); White Blood Count 10.3 K/mm3 (4.4-11.0)
[2021-05-15 20:46] LABS: AST(SGOT) 42 U/L (15-37); Alanine Aminotransfer ALT/SGPT 25 U/L (13-56); Albumin, Serum 4.2 g/dL (3.2-5.0); Alkaline Phosphatase 111 U/L (45-117); Anion Gap 9 (5-15); BUN 23 mg/dL (7-18); Bilirubin, Direct 0.06 mg/dL (0.00-0.30); Calcium,Total 9.7 mg/dL (8.5-10.1); Chloride 105 mmol/L (98-107); Creatinine, Serum 1.21 mg/dL (0.55-1.02); EST Glomerular Filtration Rate 50 mL/min (>60); Est Glom Filt Rate - Afr Amer 60 mL/min (>60); Estimated Creatinine Clearance 48.03 ml/min; Glucose 98 mg/dL (74-106); Lipase 180 U/L (73-393); Potassium 4.9 mmol/L (3.5-5.1); Protein, Total 8.2 g/dL (6.4-8.2); Sodium Level 138 mmol/L (136-145)
[2021-05-15 20:52] VITALS: BP 139/81; PULSE 75; RESP 14; O2SAT 100
[2021-05-15 21:00] VITALS: RESP 16
[2021-05-15] MEDS: Ondansetron 4 MG/2 ML Vial IV (22:02)
[2021-05-15 22:23] VITALS: BP 140/88; PULSE 72; RESP 18; O2SAT 98
== END 2021-05-15 22:26 | disposition home or self-care (01) ==
PROVIDERS: Emergency Provider Emergency Medicine; PCP Family Medicine
DX: R10.13 Epigastric pain (principal); R11.10 Vomiting, unspecified; K21.9 Gastro-esophageal reflux disease without esophagitis; D68.51 Activated protein C resistance; E78.00 Pure hypercholesterolemia, unspecified; F41.9 Anxiety disorder, unspecified
CPT/HCPCS: 80048; 80076; 83690; 85025; 93005; 96365; 96367; 96375; 96376; 99285; J7030; A4216; J2405

== ENCOUNTER 2021-11-29 11:44 | Emergency (ER) | payer MEDICAID, SELFPAY ==
[2021-11-29 11:45] VITALS: BP 162/97; PULSE 87; RESP 22; TEMP 36; O2SAT 96; BMI 27.0
== END 2021-11-29 12:25 | disposition left against medical advice (07) ==
LOC: ED 12:25
PROVIDERS: PCP Family Medicine
DX: R06.02 Shortness of breath (principal); Z53.21 Procedure and treatment not carried out due to patient leaving prior to being seen by health care provider

== ENCOUNTER 2022-12-02 11:45 | Emergency (ER) | payer MEDICAID, SELFPAY ==
[2022-12-02 11:47] VITALS: BP 142/85; PULSE 73; RESP 16; TEMP 36.6; O2SAT 100; BMI 28.3
--- NOTE | 2022-12-02 12:13 | RAD_ITS ---
STUDY: X-RAY - RIGHT KNEE REASON FOR EXAM: Female, 52 years old. Pain TECHNIQUE: 4 view(s) of the knee. COMPARISON: None. FINDINGS: Normal visualized distal femur. Normal visualized proximal tibia and fibula. Normal proximal tibiofibular articulation. There is no demonstrated fracture. Normal medial femorotibial compartment. Normal lateral femorotibial compartment. Normal patellofemoral articulation. The soft tissue structures are unremarkable. RAD/Knee 4 or More Views IMPRESSION: Normal x-ray examination of the knee. Electronically Signed: Kory Iyer MD at 12:33 EST ,
--- NOTE | 2022-12-02 12:20 | ED.VIS.LOWEX ---
HPI History of Present Illness HPI Narrative: Patient presents with right knee pain that has been getting worse over the past several days. Patient states she recently started running again. Patient denies any specific trauma or injury. Patient describes her pain as aching. Patient states her pain is over the medial aspect of her right knee. Patient states it is worse with weightbearing. Patient denies any paresthesias or weakness. Patient states nothing seems to help with her pain. Chief Complaint: Lower Extremity Injury Informant: patient Onset/Context/Timing Onset: Days Context: Sudden Onset Timing: Continuous Quality of Pain: Aching Location: Right knee Worsened by: Weightbearing Relieved by: Nothing Associated Symptoms Associated Symptoms: Negative for Parasthesia, Weakness or Loss of Funtion PFSH PFS Medical History Anxiety Factor 5 Leiden mutation, heterozygous Hypercholesteremia Hyperlipidemia Home Medications pantoprazole 40 mg tablet,delayed release 40 mg PO DAILY #30 tabs 10/10/16 [Rx Last Taken Unknown] pravastatin 20 mg tablet 20 mg PO DAILY 09/29/20 [History Last Taken Unknown] dicyclomine 10 mg capsule 10 mg PO BID PRN abdominal pain #14 caps 05/15/21 [Rx Last Taken Unknown] fluoxetine 20 mg capsule 20 mg PO DAILY 05/15/21 [History Last Taken Unknown] ondansetron 4 mg disintegrating tablet 4 mg PO Q8H PRN nausea and vomiting #10 tabs 05/15/21 [Rx Last Taken Unknown] Allergy/AdvReac Type Severity Reaction Status Date / Time latex Allergy Rash Verified 11/29/21 11:45 Penicillins Allergy Other Verified 11/29/21 11:45 acetaminophen [From Tylenol] AdvReac Nausea Verified 11/29/21 11:45 naproxen [From Aleve] AdvReac Nausea/Vom/ Verified 11/29/21 11:45 Diarrhea Wxcxmoq-HGI-QgU Reductase AdvReac Other Verified 11/29/21 11:45 Inhibitor [Iksfvrm-Cao-Bbc Reductase Inhibitor] Family History Mother Diabetes Grandmother Cervical cancer Surgical History H/O neck surgery S/P S/P hysterectomy Social History Smoking Status: Never smoker alcohol intake: current alcohol intake frequency: holidays/special occasions only substance use type: does not use caffeine: Yes what type of physical activity do you participate in: none seatbelt use: sometimes do you feel safe at home: Yes 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[employer] [employer] ROS ED Constitutional Constitutional ED: Denies chills or fever(s) Eyes Eyes: Denies blurry vision or change in vision ENT ENT ED: Denies rhinorrhea or sore throat Cardiovascular Cardiovascular: Denies chest pain or palpitations Respiratory/Chest Respiratory/Chest: Denies cough or dyspnea Gastrointestinal Gastrointestinal: Denies nausea or vomiting Genitourinary Genitourinary ED: Denies dysuria or hematuria Musculoskeletal Musculoskeletal: Denies back pain or neck pain Integumentary Denies abscess or rash Neurologic Neurologic: Reports headache(s); Denies weakness Allergic/Immunologic Allergic/Immunologic ED: Denies mouth swelling or urticaria EXAM Physical Exam Const Vital Signs: 12/02/22 11:47 Temperature 97.9 F Temperature Source Temporal Pulse Rate 73 Respiratory Rate 16 Blood Pressure 142/85 H Blood Pressure Mean 104 Pulse Ox 100 Oxygen Delivery Method Room Air Positive well nourished and well developed General Appearance ED: well developed and NAD Neck full ROM and supple Extremity Extremity Narrative: There is mild tenderness over the medial aspect of the right knee. There is some mild tenderness along the joint line as well. There is no effusion. There is no bony crepitance or step-off. Range of motion was slightly limited in flexion of the right knee secondary to pain. Varus and valgus stress test were negative. Dillon's test was negative however there was guarding on Dillon's test. Pedal pulses are equal bilaterally. Sensation was intact to light touch bilaterally in the lower extremities. Strength is 5/5 bilaterally in lower extremities. There is no calf tenderness. Neuro oriented x3, CN's II-XII intact bilaterally, moves all extremities and no sensory deficits noted Sensorium / Orientation: alert Motor Exam: strength 5/5 throughout Skin no wounds MDM MDM MDM Narrative Medical decision making narrative: Differential diagnosis includes fracture, osteochondritis dissecans, meniscus tear, bursitis, tendinitis, and ligamentous injury. Will obtain x-rays to assess for fracture and loose body. Radiography Diagnostic Testing: Clinical Impression(s) from Imaging Studies Knee X-Ray 12/02/22 12:13 IMPRESSION: Normal x-ray examination of the knee. Electronically Signed: Kory Iyer MD at 12:33 EST Reading Location ID and State: [address] [place] [address] , Service support , X-rays of the right knee were ordered reviewed. There are 4 views. On my independent interpretation, there is no acute fracture or loose body. There is no joint effusion. Radiologist also interpreted the x-rays and agrees. Treatment and Re-Evaluation Narrative: Patient was advised of her findings. Patient was instructed to use ice to the area. Patient was instructed to take Tylenol or ibuprofen as needed for pain. Patient was instructed to follow-up with her primary care physician in 5 to 7 days. Patient understood and was agreeable with the plan. All questions were answered. Discharge Plan Triage Chief Complaint: Lower Extremity Injury ED Provider: Basil Rodriguez Dx/Rx/DC Orders Clinical Impression: Strain of right knee, Anxiety Instructions: ED Knee Sprain Prescriptions: No Action pantoprazole 40 MG tablet 40 mg PO DAILY Qty: 30 2RF pravastatin 20 MG tablet 20 mg PO DAILY fluoxetine 20 mg capsule 20 mg PO DAILY Label Comments: take 1 capsule by mouth once daily ondansetron 4 mg tablet,disintegrating 4 mg PO Q8H PRN (Reason: nausea and vomiting) Qty: 10 0RF dicyclomine 10 mg capsule 10 mg PO BID PRN (Reason: abdominal pain) Qty: 14 0RF Primary Care Provider: Justus Quiñones Referrals: Justus Quiñones MD [Primary Care Provider] - 3-5 Days Disposition Disposition: Home, Self Care Discharge Date/Time: 12/02/22 13:51
== END 2022-12-02 13:51 | disposition home or self-care (01) ==
PROVIDERS: Emergency Provider Emergency Medicine; PCP Family Medicine; Visit Provider Emergency Medicine
DX: S83.91XA Sprain of unspecified site of right knee, initial encounter (principal); D68.51 Activated protein C resistance; F41.9 Anxiety disorder, unspecified; E78.00 Pure hypercholesterolemia, unspecified; Z79.899 Other long term (current) drug therapy; X58.XXXA Exposure to other specified factors, initial encounter; Y93.9 Activity, unspecified; Y92.9 Unspecified place or not applicable
CPT/HCPCS: 73564; 99282

== ENCOUNTER 2023-05-30 16:17 | Emergency (ER) | payer MEDICAID, SELFPAY ==
[2023-05-30 16:18] VITALS: BP 160/90; PULSE 73; RESP 18; TEMP 36.1; O2SAT 100; BMI 26.2
--- NOTE | 2023-05-30 16:33 | CT_ITS ---
All STUDY: CT BRAIN WITHOUT CONTRAST REASON FOR EXAM: Female, 52 years old. Severe global headache x3 weeks RADIATION DOSAGE (If Supplied By Facility): CTDIvol = ( 44.99 ) mGy, DLP = ( 711.75 ) mGycm TECHNIQUE: Transaxial CT imaging of the brain was performed without administration of intravenous contrast material. Individualized dose optimization techniques were used for this CT. COMPARISON: 04/23/2019 FINDINGS: Normal soft tissue structures. Normal calvarium. Normal size ventricles and extra-axial spaces for the patient''s age. Normal white matter tracts of the cerebral hemispheres. Normal basal ganglia and thalami. Normal brainstem. Normal cerebellum. There is no intracranial hemorrhage. There are no findings of an acute ischemic infarction. Normal visualized paranasal sinuses. CT/Brain/Head without Contrast IMPRESSION: Normal unenhanced CT scan of the brain. Electronically Signed: Jigar Titus MD at 17:51 EDT ,
--- NOTE | 2023-05-30 16:36 | EX.ED.VIS.HA ---
HPI History of Present Illness Chief Complaint: Headache Detail of Chief Complaint: Severe global headache for weeks with episode of amnesia and there is no ve Informant: patient, spouse/S.O. and PCP (PCP sent ER passport message. There is no vertigo per patient) Onset/Context/Timing Onset: Weeks Context: Sudden Timing: Continuous and Waxes and wanes Quality -Headache: Positive for Other (Global headache worse in the occiput); Negative for Similar Prior Headaches, Sharp, Dull, Throbbing, Tightness or Burning Location: Global Current Severity: Moderate Maximum Severity: Severe Worsened by: Light Relieved by: Nothing Associated Symptoms/Injury Associated Symptoms: Positive for Nausea, Photophobia and - (Transient episode of amnesia); Negative for Fever, Vomiting, Sore Throat, Sinus Pressure, Numbness, Tingling, Preceding Aura, Visual Changes, Blurred Vision or Visual Loss Injury - HAND: Negative for Direct Trauma Narrative Narrative: Patient is a 52-year-old woman with history of factor V Leiden mutation heterozygous, hiatal hernia, migraine headaches, hyperlipidemia and anxiety. She contacted her physician because of severe headaches for past several weeks. She states she was going to the [facility] and before going to the [facility] she went to [email or web address]. She placed order for her coffee. She was unaware that she told the attendant to use 3 pumps of flavor. She presently has a headache. It is the entire head and she states it is worse in the occiput area. She denies ringing or ears decreased hearing. She denies nasal symptoms. She denies trouble with speech or swallowing. She does complain of neck pain but denies neck stiffness. She denies cardiac respiratory symptoms. The only GI symptom she has is nausea. She denies urologic symptoms. She denies paresthesia, anesthesia or motor weakness. She denies problems with balance or walking. There is no family history of subarachnoid hemorrhage or aneurysm. She did take Tylenol with slight improved. She also took ibuprofen at 1300. Prior similar symptoms: Yes Recent Illness/Hospitalization: No [facility] Medical History Anxiety Factor 5 Leiden mutation, heterozygous Hypercholesteremia Hyperlipidemia Home Medications pantoprazole 40 mg tablet,delayed release 40 mg PO DAILY #30 tabs 10/10/16 [Rx Last Taken Unknown] pravastatin 20 mg tablet 20 mg PO DAILY 09/29/20 [History Last Taken Unknown] dicyclomine 10 mg capsule 10 mg PO BID PRN abdominal pain #14 caps 05/15/21 [Rx Last Taken Unknown] fluoxetine 20 mg capsule 20 mg PO DAILY 05/15/21 [History Last Taken Unknown] ondansetron 4 mg disintegrating tablet 4 mg PO Q8H PRN nausea and vomiting #10 tabs 05/15/21 [Rx Last Taken Unknown] Allergy/AdvReac Type Severity Reaction Status Date / Time latex Allergy Rash Verified 05/30/23 16:22 Penicillins Allergy Other Verified 05/30/23 16:22 acetaminophen [From Tylenol] AdvReac Nausea Verified 05/30/23 16:22 naproxen [From Aleve] AdvReac Nausea/Vom/ Verified 05/30/23 16:22 Diarrhea Family History Mother Diabetes Grandmother Cervical cancer Surgical History H/O neck surgery S/P S/P hysterectomy Social History Smoking Status: Never smoker alcohol intake: current alcohol intake frequency: holidays/special occasions only substance use type: does not use caffeine: Yes what type of physical activity do you participate in: none seatbelt use: sometimes do you feel safe at home: Yes 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 [employer] ED Constitutional Constitutional ED: Denies chills, fever(s), subjective, sweats or weight loss Eyes Eyes: Denies blurry vision, change in vision or diplopia ENT ENT ED: Denies ear pain, rhinorrhea or sore throat Cardiovascular Cardiovascular: Denies chest pain, orthopnea, palpitations, paroxysmal nocturnal dyspnea or racing heartbeat Respiratory/Chest Respiratory/Chest: Denies cough, dyspnea, dyspnea on exertion, orthopnea or paroxysmal nocturnal dyspnea Gastrointestinal Gastrointestinal: Reports nausea; Denies abdominal pain, diarrhea or vomiting Genitourinary Genitourinary ED: Denies dysuria, hematuria or urinary frequency Musculoskeletal Musculoskeletal: Denies arthralgias, back pain, myalgias or neck pain Integumentary Denies Abrasions or rash Neurologic Neurologic: Reports headache(s); Denies paresthesias or weakness Psychiatric Psychiatric: Reports anxiety; Denies depression Endocrine Endocrinology: Denies polydipsia, polyphagia or polyuria Hematologic/Lymphatic Hematologic/Lymphatic: Denies easy bleeding or easy bruising EXAM Physical Exam Const Vital Signs: 05/30/23 16:18 Temperature 97 F L Temperature Source Temporal Pulse Rate 73 Respiratory Rate 18 Blood Pressure 160/90 H Blood Pressure Mean 113 Pulse Ox 100 Oxygen Delivery Method Room Air Positive well nourished and well developed General Appearance ED: well developed and NAD; Negative for cyanotic or pallor HEENT Reports normocephalic, TM's clear and moist mucous membranes HEENT Narrative: Posterior pharynx is normal. Uvula is midline. There is no deviation with protrusion. Patient has multiple teeth that have been extracted atraumatic Tympanic Membrane ED: Yes TM's clear Eyes PERRL and EOMs intact bilaterally Eyes Narrative: There is no papilledema. Cup-to-disc ratio was normal. Difficult to see vessels because of miosis. She does not have obvious photophobia to light. General Eye ED: Negative for pale conjunctiva or scleral icterus Neck no lymphadenopathy, supple, no meningeal signs and no JVD Resp normal respiratory effort and clear to auscultation bilaterally Cardio regular rate, regular rhythm, S1 normal heart sound, S2 normal heart sound and no murmurs GI non-tender and non-distended Auscultation: normoactive bowel sounds Palpation: soft Back/Spine no CVA tenderness Extremity normal to inspection, full ROM and normal capillary refill Neuro oriented x3, CN's II-XII intact bilaterally and no sensory deficits noted Neuro Narrative: There is no dysmetria. There is no clonus or Minsky noted. [place] Coma Scale: document GCS findings Spontaneous Obeys Commands Oriented 15 Sensorium / Orientation: awake and alert Speech: speech normal Gait (Neuro): normal gait Motor Exam: strength 5/5 throughout Psych mental status grossly normal Skin General Skin Exam: elasticity normal and turgor normal; Negative for jaundice or pallor Lesions: no lesions Rashes: no rashes MDM MDM MDM Narrative Medical decision making narrative: Patient with severe headache. Will obtain CT to determine if there is any internal cranial lesion or bleed. She has no meningeal findings. Apparently she has history of headaches due to iron deficiency anemia. She was treated for her iron deficient anemia a month ago with iron infusion. Will obtain CBC to assess for anemia. Will obtain ESR to assess for evidence of vasculitis especially since she has had symptoms for several weeks. BMP was obtained to assess renal function. Lab Data Attestation: I reviewed the patient's lab results. Lab results narrative: CBC is remarkable for lymphocytosis otherwise markable. Electrolyte panel reveals elevated BUN to creatinine ratio otherwise unremarkable. ESR is normal Labs: Laboratory Results - last 24 hr 05/30/23 16:51 WBC 5.3 RBC 4.92 Hgb 14.2 Hct 43.1 MCV 87.6 MCH 28.9 MCHC 32.9 RDW Std Deviation 47.9 H RDW Coeff of Marcie 15.1 H Plt Count 223 MPV 10.2 Immature Gran % (Auto) 0.200 Neut % (Auto) 40.9 L Lymph % (Auto) 45.6 H Arroyo % (Auto) 9.5 Eos % (Auto) 3.4 Baso % (Auto) 0.4 Absolute Neuts (auto) 2.2 Absolute Lymphs (auto) 2.41 Nucleated RBC % 0 ESR 2 Sodium 138 Potassium 3.8 Chloride 107 Carbon Dioxide 27.0 Anion Gap 4 L BUN 20 H Creatinine 0.89 Estim Creat Clear Calc 63.85 Est GFR (MDRD) Af Amer 86 Est GFR (MDRD) Non-Af 71 BUN/Creatinine Ratio 22.5 H Glucose 101 Calcium 8.7 Radiography Diagnostic Testing: Clinical Impression(s) from Imaging Studies Brain CT 05/30/23 16:33 IMPRESSION: Normal unenhanced CT scan of the brain. Electronically Signed: Jigar Titus MD at 17:51 EDT , Treatment and Re-Evaluation Narrative: Injury patient headache has improved. This may possibly represent a vascular/migraine headache. Discharge Plan Triage Chief Complaint: Headache ED Provider: Shimon Smallwood Dx/Rx/DC Orders Clinical Impression: Acute intractable headache, Factor 5 Leiden mutation, heterozygous, Photophobia of both eyes Instructions: Understanding Headache Pain Prescriptions: No Action pantoprazole 40 MG tablet 40 mg PO DAILY Qty: 30 2RF pravastatin 20 MG tablet 20 mg PO DAILY fluoxetine 20 mg capsule 20 mg PO DAILY Patient Comments: take 1 capsule by mouth once daily ondansetron 4 mg tablet,disintegrating 4 mg PO Q8H PRN (Reason: nausea and vomiting) Qty: 10 0RF dicyclomine 10 mg capsule 10 mg PO BID PRN (Reason: abdominal pain) Qty: 14 0RF Primary Care Provider: Justus Quiñones Referrals: Justus Quiñones MD [Primary Care Provider] - 3-5 Days Disposition Disposition: Home, Self Care
[2023-05-30 16:57] LABS: Absolute Lymphocyte Count 2.41 X10^3/uL (0.83-4.51); Absolute Neutrophil Count 2.2 X10^3/uL (2.0-7.7); Basophil# 0.02 X10^3/uL; Basophil% 0.4 % (0-1); Eosinophil# 0.18 X10^3/uL; Eosinophils% 3.4 % (0-5); Hematocrit 43.1 % (37-47); Hemoglobin 14.2 g/dL (12.0-15.0); Lymphocyte # 2.41 X10^3/ul (0.83-4.51); Lymphocyte % 45.6 % (19-41); Mean Corp Hgb Conc 32.9 g/dL (32-36); Mean Corpuscular Hgb 28.9 pg (27.0-32.0); Mean Corpuscular Volume 87.6 fL (81-99); Mean Platelet Vol. 10.2 fl (6.2-12.0); Monocyte% 9.5 % (0-10); NRBC Flagged by Analyzer 0 % (0-5); Neutrophil # 2.17 X10^3/uL (2.7-7.7); Neutrophil % 40.9 % (47-70); Platelet Count 223 K/mm3 (150-450); RBC Distribution Width CV 15.1 % (11.6-14.6); RBC Distribution Width SD 47.9 fl (35.1-43.9); Red Blood Count 4.92 M/mm3 (4.2-5.4); White Blood Count 5.3 K/mm3 (4.4-11.0)
[2023-05-30 17:04] LABS: Erythrocyte Sedimentation Rate 2 mm/hr (0-30)
[2023-05-30] MEDS: Ketorolac 15 MG/ML Vial IV (17:05)
[2023-05-30] MEDS: DiphenhydrAMINE 50 MG/ML Syringe 25 MG IV (17:05)
[2023-05-30] MEDS: Metoclopramide 10 MG/2 ML Vial IV (17:05)
[2023-05-30 17:10] LABS: Anion Gap 4 (5-15); BUN 20 mg/dL (7-18); BUN/Creat Ratio 22.5 RATIO (10-20); Calcium,Total 8.7 mg/dL (8.5-10.1); Chloride 107 mmol/L (98-107); Creatinine, Serum 0.89 mg/dL (0.55-1.02); EST Glomerular Filtration Rate 71 mL/min (>60); Est Glom Filt Rate - Afr Amer 86 mL/min (>60); Estimated Creatinine Clearance 63.85 ml/min; Glucose 101 mg/dL (74-106); Potassium 3.8 mmol/L (3.5-5.1); Sodium Level 138 mmol/L (136-145)
[2023-05-30 18:42] VITALS: BP 117/70; PULSE 60; RESP 18; O2SAT 97
== END 2023-05-30 18:43 | disposition home or self-care (01) ==
PROVIDERS: Emergency Provider Emergency Medicine; PCP Family Medicine; Visit Provider Emergency Medicine
DX: R51.9 Headache, unspecified (principal); D68.51 Activated protein C resistance; D50.9 Iron deficiency anemia, unspecified; E78.00 Pure hypercholesterolemia, unspecified; F41.9 Anxiety disorder, unspecified; H53.143 Visual discomfort, bilateral
CPT/HCPCS: 70450; 80048; 85025; 85652; 96374; 96375; 99284; J7050; A4216

== ENCOUNTER 2023-06-29 11:13 | Emergency (ER) | payer MEDICAID, SELFPAY ==
[2023-06-29 11:14] VITALS: BP 129/86; PULSE 76; RESP 18; TEMP 36; O2SAT 99
[2023-06-29] MEDS: Diphth,Pertuss(Acell),Tet Vac 0.5 ML Vial IM (11:50)
[2023-06-29] MEDS: Doxycycline 100 MG CAPSULE PO (11:50)
[2023-06-29] MEDS: Bupivacaine Mpf 0.5% 30 ML VIAL INFILT (11:54)
[2023-06-29] MEDS: Lidocaine 1% (20 ml mdv) 20 ML Vial INFILT (11:54)
--- NOTE | 2023-06-29 12:40 | EDS_ITS ---
HPI History of Present Illness Chief Complaint: Lower Extremity Injury Informant: patient Narrative Narrative: Just within the last hour, patient got splinter in the front of her left foot. She was walking across a wooden deck to take out garbage when it caught s plinters on the deck. She is not able to get them out. No diabetes. No blood thinners. No other complaints. She did not trip and fall afterwards. Of note, she does have allergy to penicillin and Bactrim. So we will initiate doxycycline. [facility] Medical History Anxiety Factor 5 Leiden mutation, heterozygous Hypercholesteremia Hyperlipidemia Home Medications pantoprazole 40 mg tablet,delayed release 40 mg PO DAILY #30 tabs 10/10/16 [Rx Last Taken Unknown] pravastatin 20 mg tablet 20 mg PO DAILY 09/29/20 [History Last Taken Unknown] dicyclomine 10 mg capsule 10 mg PO BID PRN abdominal pain #14 caps 05/15/21 [Rx Last Taken Unknown] fluoxetine 20 mg capsule 20 mg PO DAILY 05/15/21 [History Last Taken Unknown] ondansetron 4 mg disintegrating tablet 4 mg PO Q8H PRN nausea and vomiting #10 tabs 05/15/21 [Rx Last Taken Unknown] doxycycline monohydrate 100 mg capsule 100 mg PO BID #20 CAPSULES 06/29/23 [Rx Last Taken Unknown] Allergy/AdvReac Type Severity Reaction Status Date / Time latex Allergy Rash Verified 05/30/23 16:22 Penicillins Allergy Other Verified 05/30/23 16:22 acetaminophen [From Tylenol] AdvReac Nausea Verified 05/30/23 16:22 naproxen [From Aleve] AdvReac Nausea/Vom/ Verified 05/30/23 16:22 Diarrhea Family History Mother Diabetes Grandmother Cervical cancer Surgical History H/O neck surgery S/P S/P hysterectomy Social History Smoking Status: Never smoker alcohol intake: current alcohol intake frequency: holidays/special occasions only substance use type: does not use caffeine: Yes what type of physical activity do you participate in: none seatbelt use: sometimes do you feel safe at home: Yes 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 [employer] ED Constitutional Constitutional ED: Denies chills or fever(s) Cardiovascular Cardiovascular: Denies chest pain or palpitations Respiratory/Chest Respiratory/Chest: Denies cough Gastrointestinal Gastrointestinal: Denies nausea or vomiting Integumentary Reports other Details: See history of present illness Neurologic Neurologic: Denies paresthesias or weakness Hematologic/Lymphatic Hematologic/Lymphatic: Denies easy bleeding, easy bruising or lymphadenopathy Allergic/Immunologic Allergic/Immunologic ED: Denies urticaria EXAM Physical Exam Narrative Exam Narrative: Patient awake alert no acute distress sitting comfortably in bed. HEENT shows no sign of trauma Neck is mobile. Cardiorespiratory shows normal pulse respiratory effort and saturations are normal at 99% on room air showing no hypoxia. Extremities show deformities. However there are splinters visible in the sole of her right foot. There appears to be 3 closely spaced. These appear to be about almost 2 cm in length. There is a tear/laceration of the skin over this. Minimal blood at the site. Const Vital Signs: 06/29/23 11:14 Temperature 96.8 F L Temperature Source Temporal Pulse Rate 76 Respiratory Rate 18 Blood Pressure 129/86 H Blood Pressure Mean 100 Pulse Ox 99 MDM MDM MDM Narrative Medical decision making narrative: We discussed options with the patient. This area is extremely painful to anesthetize. Patient really does not want that. We discussed doing an ankle block. If this does not work we will do sedation. Procedure: Ankle block. Ultrasound was used to locate nerve arteries and veins. I used a total of 8 cc of 0.5% bupivacaine split between deep peroneal nerve and posterior tibial nerve. Aspiration was performed the entire time. No vascular process was hit. There was no peripheral paresthesias. The anesthesia injected very easily. We injected about 4-1/2 cc near the posterior tibial and about 3 to 3-1/2 cc at the deep peroneal nerve region. We will allow this to rest. Procedure: Removal of splinters: Patient obtained excellent anesthesia from above. The area was scrubbed and cleaned and draped. These large splinters were actually very adherent. I then cut the epidermal tissue that overlaid the main splinter. This allowed us to get the splinter out. I removed 4 very large splinters that were likely 1-2 millimeter or more around. Several of these were 2 cm in length. I was then able to get about 3 or 4 fragments that were about 8 mm long and 2 mm around. The area was copiously irrigated. I could see no more splinters in the tissue. I could not feel any with probing or with palpation. The tissue was soft. I think I have got all these out. I explained to the patient that the only way to remove these was to open up the skin on top of these. But as this is mostly epidermal, I do not think suturing is appropriate. I also would like these areas to be able to drain. I explained that it still has a good risk for infection. We will minimize this by the irrigation and scrubbing that we did. She can soak this several times a day to clean it and then keep it dressed. We will get her on antibiotics. I will give her number for follow-up. If she gets redness, pain, drainage, fever, red streak up the legs or any other concerns she may need to return. Procedures Other Procedures Procedure(s): See MDM. Discharge Plan Triage Chief Complaint: Lower Extremity Injury ED Provider: Cortez Ellis Dx/Rx/DC Orders Clinical Impression: Foreign body (FB) in soft tissue, Splinter of right foot Instructions: ED Foreign Body, Soft Tissue (Removed), ED Puncture Wound (Foot) Prescriptions: New doxycycline monohydrate 100 mg capsule 100 mg PO BID Qty: 20 0RF No Action pantoprazole 40 MG tablet 40 mg PO DAILY Qty: 30 2RF pravastatin 20 MG tablet 20 mg PO DAILY fluoxetine 20 mg capsule 20 mg PO DAILY Patient Comments: take 1 capsule by mouth once daily ondansetron 4 mg tablet,disintegrating 4 mg PO Q8H PRN (Reason: nausea and vomiting) Qty: 10 0RF dicyclomine 10 mg capsule 10 mg PO BID PRN (Reason: abdominal pain) Qty: 14 0RF Primary Care Provider: Justus Quiñones Referrals: Maykel Hudson MD [Med Staff - Active Staff] - 3-5 Days if not improving Justus Quiñones MD [Primary Care Provider] - Disposition Disposition: Home, Self Care
== END 2023-06-29 14:02 | disposition home or self-care (01) ==
PROVIDERS: Emergency Provider Emergency Medicine; PCP Family Medicine; Visit Provider Emergency Medicine
DX: S90.851A Superficial foreign body, right foot, initial encounter (principal); E78.00 Pure hypercholesterolemia, unspecified; E78.5 Hyperlipidemia, unspecified; Z79.899 Other long term (current) drug therapy; Z90.710 Acquired absence of both cervix and uterus
CPT/HCPCS: 20605; 20610; 90715; 99285

== ENCOUNTER 2025-03-29 20:18 | Emergency (ER) | payer SELFPAY ==
[2025-03-29 20:22] VITALS: BP 146/82; PULSE 85; RESP 18; TEMP 35.7; O2SAT 100; BMI 26.2
[2025-03-29 20:24] VITALS: BP 146/82; PULSE 83; RESP 18; TEMP 35.7; O2SAT 100
--- NOTE | 2025-03-29 21:06 | CT_ITS ---
PROCEDURE: ABDOMEN/PELVIS W IV CONT ONLY 03/29/2025 REASON FOR EXAM: ABD PAIN W/ VOMITING TECHNIQUE: Abdomen and pelvis CT with intravenous contrast. Coronal and Sagittal reconstruction series were provided. PATIENT PREPARATION: Per protocol CONTRAST: 85 mL Isovue 370 One or more dose reduction techniques were used (e.g., Automated exposure control, adjustment of the mA and/or kV according to patient size, use of iterative reconstruction technique. RADIATION DOSE SUMMARY: CTDlvol: 13.8 mGy DLP: 685 mGycm COMPARISON: None FINDINGS: Lung bases: Unremarkable. Liver: There are hypodense lesions measuring 1.3 cm at the left hepatic dome (series 2, image 16) and 0.9 cm at the right hepatic dome (image 18). Gallbladder: Unremarkable Spleen: Normal size. Pancreas: Normal size without evidence of mass surrounding inflammation or ductal dilation. Adrenals: Unremarkable Kidneys: No hydronephrosis or stone. Bladder: Unremarkable Reproductive Organs: Prior hysterectomy. Adnexal regions are unremarkable. Bowel: No obstruction or inflammation. Normal appendix. Lymph nodes: Mild stranding with subcentimeter lymph nodes present in the left mid abdominal mesentery. Vasculature: Unremarkable Bones: Unremarkable CT/Abdomen/Pelvis W IV Cont ONLY IMPRESSION: 1. No definite evidence for an acute intra-abdominal abnormality. 2. Mild stranding with subcentimeter lymph nodes present in the abdominal mese ntery, nonspecific finding with differential including mesenteric panniculitis amongst other etiologies. 3. Hypodense lesions at the hepatic dome measuring up to 1.3 cm. Consider tong er MRI per ACR white paper guidelines, particularly if patient has risk factors for hepatic malignancy. Reading Location: [id number]
--- NOTE | 2025-03-29 21:08 | ED.VIS.GI ---
HPI HPI - GI History of Present Illness Chief Complaint: Nausea/Vomiting Informant: patient and family Abdominal Pain/Flank Pain Onset: Today Context: Gradual Onset Timing: Continuous Quality: Aching and Cramping Location: Epigastric Current Severity: Moderate Maximum Severity: Moderate Nausea/Vomiting/Emesis GI Symptom: Positive for Nausea and Vomiting Onset: Today Severity: Moderate Episodes: 10 Diarrhea/Melena/Hematochezia GI Symptom: Positive for Diarrhea; Negative for Melena or Hematochezia Onset: Today Stool Quality: Positive for Watery Severity: Moderate Associated Symptoms Associated Symptoms: Negative for Dysuria, Frequency, Hematuria or Urgency Narrative Narrative: 54-year-old female history of factor V mutation prior PE only abdominal surgery was partial hysterectomy. Patient states that she had all her teeth pulled last week by an oral surgeon. She has been on clindamycin. Today they saw her. Her treating her for dry socket. Since she went home she was doing fine and then started having nausea vomiting. Along with epigastric abdominal pain. Then developed diarrhea. States she is thrown up at least 10 times. No hematemesis. No coffee-ground. No melena or hematochezia. No dysuria. No fever. Said she is never had anything like this before. Does not know anyone particular she has been around has been sick lately. Prior similar symptoms: No Recent Illness/Hospitalization: No PFSH [facility] Medical History Hypercholesteremia Factor 5 Leiden mutation, heterozygous Hyperlipidemia Anxiety Home Medications ?Medication ?Instructions ?Recorded ?Last Taken ?Type pantoprazole 40 mg tablet,delayed 40 mg PO DAILY #30 tabs 10/10/16 Unknown Rx release pravastatin 20 mg tablet 20 mg PO DAILY 09/29/20 Unknown History dicyclomine 10 mg capsule 10 mg PO BID PRN abdominal pain 05/15/21 Unknown Rx #14 caps fluoxetine 20 mg capsule 20 mg PO DAILY 05/15/21 Unknown History ondansetron 4 mg disintegrating 4 mg PO Q8H PRN nausea and 05/15/21 Unknown Rx tablet vomiting #10 tabs doxycycline monohydrate 100 mg 100 mg PO BID #20 CAPSULES 06/29/23 Unknown Rx capsule ondansetron 4 mg disintegrating 4 mg PO Q6H PRN nausea and 03/29/25 Unknown Rx tablet vomiting #7 tabs Allergy/AdvReac Type Severity Reaction Status Date / Time latex Allergy Rash Verified 03/29/25 20:24 Penicillins Allergy Other Verified 03/29/25 20:24 acetaminophen (From Tylenol) AdvReac Nausea Verified 03/29/25 20:24 naproxen (From Aleve) AdvReac Nausea/Vom/ Verified 03/29/25 20:24 Diarrhea Family History Mother Diabetes Grandmother Cervical cancer Surgical History H/O neck surgery S/P S/P hysterectomy Social History Smoking Status: Never smoker alcohol intake: current alcohol intake frequency: holidays/special occasions only substance use type: does not use caffeine: Yes what type of physical activity do you participate in: none seatbelt use: sometimes do you feel safe at home: Yes 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 [email or web address] [employer] ROS ED ROS Narrative Nausea, vomiting, diarrhea and abdominal pain. Constitutional Constitutional ED: Denies chills or fever(s) Cardiovascular Cardiovascular: Denies chest pain Respiratory/Chest Respiratory/Chest: Denies cough Gastrointestinal Gastrointestinal: Reports abdominal pain, diarrhea, nausea and vomiting; Denies constipation or melena Genitourinary Genitourinary ED: Denies dysuria or hematuria Musculoskeletal Musculoskeletal: Denies arthralgias, back pain, myalgias or neck pain Integumentary Denies abscess or Abrasions Neurologic Neurologic: Denies headache(s) Psychiatric Psychiatric: Denies anxiety Endocrine Endocrinology: Denies polydipsia Hematologic/Lymphatic Hematologic/Lymphatic: Denies easy bleeding, easy bruising or lymphadenopathy Allergic/Immunologic Allergic/Immunologic ED: Denies mouth swelling, tongue swelling or urticaria EXAM Physical Exam Narrative Exam Narrative: 54-year-old female sitting upright in bed. Vital signs are stable afebrile. Complaining of abdominal pain. Nauseated. But currently not vomiting. Family at bedside. H EENT exam pupils round react to light. Moist mucous membranes. Lower dentition is all been removed. Sutures in place. Neck nontender. No lymphadenopathy. Lungs clear to auscultation. Heart regular rhythm rate about 85 no murmur. Chest wall ribs nontender. Abdomen soft nondistended normal bowel sounds no peritoneal signs. She is tender in epigastric region. Not specifically in the right upper quadrant. No Abbott sign. No McBurney's point tenderness. No hernia or mass. Moving all 4 extremities. Nontender no edema. Normal strength. Back nontender. Neurologically she is awake alert. Answering questions following commands. Const Vital Signs: 03/29/25 20:22 03/29/25 20:24 03/29/25 21:21 Temperature 96.3 F L 96.3 F L Temperature Source Oral Temporal Pulse Rate 85 83 78 Respiratory Rate 18 18 16 Blood Pressure 146/82 H 146/82 H 142/63 H Blood Pressure Mean 103 103 89 Pulse Ox 100 100 98 Oxygen Delivery Method Room Air Room Air Room Air 03/29/25 21:24 Temperature 99 F Temperature Source Oral Pulse Rate 71 Respiratory Rate 18 Blood Pressure 142/63 H Blood Pressure Mean 89 Pulse Ox 99 Oxygen Delivery Method Room Air Positive well developed; Negative for cachectic, contractures or unkempt General Appearance ED: well developed and NAD; Negative for unkempt, cachectic, contractures or pallor Nutritional Appearance: Negative for cachectic HEENT Reports moist mucous membranes normocephalic and atraumatic Eyes PERRL and EOMs intact bilaterally General Eye ED: Negative for pale conjunctiva or scleral icterus Neck no lymphadenopathy, supple and no JVD Resp normal respiratory effort and clear to auscultation bilaterally Effort and Inspection: Negative for respiratory distress Auscultation: Negative for rales, rhonchi, wheezes or diminished lung sounds Cardio regular rate, regular rhythm, S1 normal heart sound, S2 normal heart sound and no murmurs Rate: Negative for bradycardia or tachycardic Rhythm: Negative for abnormal rhythm GI non-distended and no masses; Negative for non-tender GI Narrative: Mild epigastric tenderness. Inspection: Negative for abdominal distention Auscultation: normoactive bowel sounds Palpation: soft and tender; Negative for guarding, rigid, hepatomegaly, splenomegaly, hernia, mass, pulsatile mass or rebound tenderness present Back/Spine General Back: Negative for CVA tenderness Cervical Spine: Negative for cervical spine tenderness Thoracic Spine / Upper Back: Negative for thoracic spinal tenderness Lumbar Spine / Lower Back: Negative for lumbar spinal tenderness Extremity full ROM General Extremety ED: Negative for edema or tenderness General Extremity: Negative for edema Neuro CN's II-XII intact bilaterally and moves all extremities Sensorium / Orientation: alert, oriented to person, oriented to place and oriented to time; Negative for orientation impaired, confused, lethargic or stuporous Motor Exam: strength 5/5 throughout Psych mental status grossly normal and thought process normal Appearance: Negative for unkempt Attitude: No agitated Mood & Affect: Negative for depressed, anxious or tearful Skin no wounds General Skin Exam: Negative for jaundice or pallor Lesions: no lesions Rashes: no rashes Trauma: Negative for abrasion Nails: Negative for discolored MDM MDM MDM Narrative Medical decision making narrative: 54-year-old female plan nausea, vomiting and diarrhea today. Started around 4 PM. Then developed epigastric abdominal pain. CAT scan and labs are being obtained. Differential include viral gastroenteritis, pancreatitis, biliary colic. Clinically I do not think this is a bowel obstruction. She will be treated with IV fluids, Zofran for nausea and morphine for her pain. Repeat exam at 10:19 PM patient doing better. Abdomen is benign. Nontender. Nondistended. Pain is much better after the morphine. Still has some nausea but not actively vomiting. She will be given additional Zofran. We went over her lab results which are basically unremarkable except for mild dehydration. Awaiting the CT results which have already reviewed. Currently waiting for the radiologist interpretation. Patient feeling much better at 10:45 PM. Said her nausea is resolving. Abdomen is benign. Again nontender soft. We went over test results. She is comfortable being discharged home with Zofran. Fluids and rest. Follow-up as needed return if worse. Treated as a viral gastroenteritis. History & Record Review Discussion w/independent historian: Family Additional record(s) reviewed:: Prior inpatient record, Prior outpatient record, Prior ED visit and Prior labs Lab Data Attestation: I reviewed the patient's lab results. Lab results narrative: CBC shows a white count 1.7. H&H is 16.8 and 50. Platelets 244. Electrolytes show sodium 138. Gap 14. Reveal a creatinine of 23 and 0.9 consistent with mild dehydration. Glucose 106. Liver enzymes unremarkable. ALT elevated 54. Lipase normal at 37. CT abdomen pelvis showed no acute abnormalities read by the radiologist. Reviewed by me. Labs: Laboratory Results - last 24 hr 03/29/25 20:30 WBC 11.7 H RBC 5.63 H Hgb 16.8 H Hct 50.0 H MCV 88.8 MCH 29.8 MCHC 33.6 RDW Std Deviation 43.1 RDW Coeff of Marcie 13.2 Plt Count 244 MPV 11.1 Immature Gran % (Auto) 0.500 Neut % (Auto) 83.5 H Lymph % (Auto) 7.4 L [place] % (Auto) 6.0 Eos % (Auto) 2.2 Baso % (Auto) 0.4 Absolute Neuts (auto) 9.8 H Absolute Lymphs (auto) 0.87 Nucleated RBC % 0 Sodium 138 Potassium 4.4 Chloride 105 Carbon Dioxide 19.8 L Anion Gap 14 BUN 23 H Creatinine 0.93 Estim Creat Clear Calc 66.13 Est GFR (MDRD) Non-Af 73 BUN/Creatinine Ratio 24.9 H Glucose 106 H Calcium 9.9 Total Bilirubin 0.43 AST 31 ALT 54 H Alkaline Phosphatase 93 Total Protein 7.9 Albumin 4.7 Globulin 3.2 Albumin/Globulin Ratio 1.5 Lipase 37 Radiography Diagnostic Testing: Clinical Impression(s) from Imaging Studies Abdomen/Pelvis CT 03/29/25 21:06 IMPRESSION: 1. No definite evidence for an acute intra-abdominal abnormality. 2. Mild stranding with subcentimeter lymph nodes present in the abdominal mesentery, nonspecific finding with differential including mesenteric panniculitis amongst other etiologies. 3. Hypodense lesions at the hepatic dome measuring up to 1.3 cm. Consider liver MRI per ACR white paper guidelines, particularly if patient has risk factors for hepatic malignancy. Reading Location: [id number] Discharge Plan Triage Chief Complaint: Nausea/Vomiting ED Provider: Mango Leone Dx/Rx/DC Orders Clinical Impression: Viral gastroenteritis, Hx pulmonary embolism, Acute dehydration, Abdominal pain Instructions: ED Dehydration (Adult), ED Gastroenteritis, Viral (Adult) Prescriptions: New ondansetron 4 mg tablet,disintegrating 4 mg PO Q6H PRN (Reason: nausea and vomiting) Qty: 7 0RF No Action pantoprazole 40 MG tablet 40 mg PO DAILY Qty: 30 2RF pravastatin 20 MG tablet 20 mg PO DAILY fluoxetine 20 mg capsule 20 mg PO DAILY Patient Comments: take 1 capsule by mouth once daily ondansetron 4 mg tablet,disintegrating 4 mg PO Q8H PRN (Reason: nausea and vomiting) Qty: 10 0RF dicyclomine 10 mg capsule 10 mg PO BID PRN (Reason: abdominal pain) Qty: 14 0RF doxycycline monohydrate 100 mg capsule 100 mg PO BID Qty: 20 0RF Primary Care Provider: Justus Quiñones Referrals: Justus Quiñones MD [Primary Care Provider] - 1-2 Days if not improving Activity Restrictions/Additional Instructions: Plenty of fluids and rest. Slowly increase your diet as tolerated. Water, 7-Up, ice chips, Gatorade and increase slowly as tolerated. Zofran as needed for nausea. You can let dissolve in your tongue or if Abels swallow it. Follow-up with your primary care physician if not improving or return if unable to keep fluids down or feeling worse. Your CAT scan labs look good. Suspect this to be a viral illness. Print Language: Japanese Disposition Disposition: Home, Self Care
[2025-03-29 21:21] VITALS: BP 142/63; PULSE 78; RESP 16; O2SAT 98
[2025-03-29 21:21] LABS: Absolute Lymphocyte Count 0.87 X10^3/uL (0.83-4.51); Absolute Neutrophil Count 9.8 X10^3/uL (2.0-7.7); Basophil# 0.05 X10^3/uL; Basophil% 0.4 % (0-1); Eosinophil# 0.26 X10^3/uL; Eosinophils% 2.2 % (0-5); Hemoglobin 16.8 g/dL (12.0-15.0); Lymphocyte # 0.87 X10^3/ul (0.83-4.51); Lymphocyte % 7.4 % (19-41); Mean Corp Hgb Conc 33.6 g/dL (32-36); Mean Corpuscular Hgb 29.8 pg (27.0-32.0); Mean Corpuscular Volume 88.8 fL (81-99); Mean Platelet Vol. 11.1 fl (6.2-12.0); NRBC Flagged by Analyzer 0 % (0-5); Neutrophil # 9.77 X10^3/uL (2.7-7.7); Neutrophil % 83.5 % (47-70); Platelet Count 244 K/mm3 (150-450); RBC Distribution Width CV 13.2 % (11.6-14.6); RBC Distribution Width SD 43.1 fl (35.1-43.9); Red Blood Count 5.63 M/mm3 (4.2-5.4); White Blood Count 11.7 K/mm3 (4.4-11.0)
[2025-03-29] MEDS: Morphine 4 MG/ML Syringe 6 MG IV (21:22)
[2025-03-29] MEDS: 0.9% Normal Saline (1000mL) 1,000 ML 999 ML IV (21:22)
[2025-03-29] MEDS: Ondansetron 4 MG/2 ML Vial IV ×2 (21:22→22:39)
[2025-03-29 21:24] VITALS: BP 142/63; PULSE 71; RESP 18; TEMP 37.2; O2SAT 99
[2025-03-29 21:42] LABS: ALB/GLOB Ratio 1.5 RATIO (0.9-2.4); AST(SGOT) 31 U/L (<=31); Alanine Aminotransfer ALT/SGPT 54 U/L (<=34); Albumin, Serum 4.7 g/dL (3.5-5.0); Alkaline Phosphatase 93 U/L (35-104); Anion Gap 14 (5-15); BUN 23 mg/dL (4-19); BUN/Creat Ratio 24.9 RATIO (10-20); Calcium,Total 9.9 mg/dL (7.6-11.0); Carbon Dioxide 19.8 mmol/L (21.0-32.0); Chloride 105 mmol/L (98-108); Creatinine, Serum 0.93 mg/dL (0.70-1.20); EST Glomerular Filtration Rate 73 (>60); Estimated Creatinine Clearance 66.13 ml/min (50-250); Globulin 3.2 g/dL (2.2-4.2); Glucose 106 mg/dL (70-99); Lipase 37 U/L (13-75); Potassium 4.4 mmol/L (3.3-5.1); Protein, Total 7.9 g/dL (5.9-8.4); Sodium Level 138 mmol/L (133-145); Total Bilirubin 0.43 mg/dL (0.00-1.30)
[2025-03-29 22:53] VITALS: BP 132/84; PULSE 78; RESP 16; TEMP 37; O2SAT 100
== END 2025-03-29 23:00 | disposition home or self-care (01) ==
PROVIDERS: Emergency Provider Emergency Medicine; PCP Family Medicine; Visit Provider Emergency Medicine
DX: A08.4 Viral intestinal infection, unspecified (principal); E86.0 Dehydration; R10.13 Epigastric pain; E78.00 Pure hypercholesterolemia, unspecified; D68.51 Activated protein C resistance; E78.5 Hyperlipidemia, unspecified; Z86.711 Personal history of pulmonary embolism
CPT/HCPCS: 74177; 80053; 83690; 85025; 96361; 96374; 96375; 99284; Q9967; A4216; J2405

== ENCOUNTER 2025-07-07 16:48 | Emergency (ER) | payer SELFPAY ==
[2025-07-07 16:48] VITALS: BP 171/92; PULSE 73; RESP 16; TEMP 36.7; O2SAT 100; BMI 26.2
--- NOTE | 2025-07-07 17:11 | US_ITS ---
PROCEDURE: LEFT LOWER EXTREMITY VENOUS DUPLEX IMAG/LIMITED/UNI 07/07/2025 REASON FOR EXAM: Left leg pain TECHNIQUE: Left lower extremity venous Doppler ultrasound. COMPARISON: None. FINDINGS: No intraluminal echogenicity to suggest the presence of a deep venous thrombosis. Appropriate respiratory variation, augmentation and venous compression is noted. US/Venous Duplex Imag/Limited/Uni IMPRESSION: No evidence for DVT in the left lower extremity. Reading Location: [id number]
--- NOTE | 2025-07-07 17:29 | ED.VIS.LOWEX ---
HPI History of Present Illness Chief Complaint: Lower Extremity Injury Informant: patient Narrative Narrative: Sent in by PCP 1 week history left upper thigh pain more laterally. Sent here for DVT rule out. Denies trauma denies any increase strenuous activities. She had a PE with factor V Leiden secondary to surgical history years ago. No chest pains no shortness of breath. [facility] Medical History Hypercholesteremia Factor 5 Leiden mutation, heterozygous Hyperlipidemia Anxiety Home Medications ?Medication ?Instructions ?Recorded ?Last Taken ?Type pantoprazole 40 mg tablet,delayed 40 mg PO DAILY #30 tabs 10/10/16 Unknown Rx release pravastatin 20 mg tablet 20 mg PO DAILY 09/29/20 Unknown History dicyclomine 10 mg capsule 10 mg PO BID PRN abdominal pain 05/15/21 Unknown Rx #14 caps fluoxetine 20 mg capsule 20 mg PO DAILY 05/15/21 Unknown History ondansetron 4 mg disintegrating 4 mg PO Q8H PRN nausea and 05/15/21 Unknown Rx tablet vomiting #10 tabs doxycycline monohydrate 100 mg 100 mg PO BID #20 CAPSULES 06/29/23 Unknown Rx capsule ondansetron 4 mg disintegrating 4 mg PO Q6H PRN nausea and 03/29/25 Unknown Rx tablet vomiting #7 tabs ezetimibe 10 mg tablet 10 mg PO DAILY 07/07/25 Unknown History fluoxetine 40 mg capsule 40 mg PO DAILY 07/07/25 Unknown History hydroxyzine HCl 10 mg tablet 10 - 20 mg PO TID PRN PRN anxiety 07/07/25 Unknown History rimegepant 75 mg disintegrating 75 mg PO QODAY 07/07/25 Unknown History tablet (Nurtec ODT) rosuvastatin 5 mg tablet 5 mg PO DAILY 07/07/25 Unknown History topiramate 100 mg tablet 100 mg PO BID 07/07/25 Unknown History Allergy/AdvReac Type Severity Reaction Status Date / Time latex Allergy Rash Verified 07/07/25 16:50 Penicillins Allergy Other Verified 07/07/25 16:50 acetaminophen (From Tylenol) AdvReac Nausea Verified 07/07/25 16:50 naproxen (From Aleve) AdvReac Nausea/Vom/ Verified 07/07/25 16:50 Diarrhea Family History Mother Diabetes Heart disease Grandmother Cervical cancer Surgical History H/O neck surgery S/P S/P hysterectomy Social History Smoking Status: Never smoker alcohol intake: current alcohol intake frequency: holidays/special occasions only substance use type: does not use caffeine: Yes what type of physical activity do you participate in: none seatbelt use: sometimes do you feel safe at home: Yes 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 [employer] ED Constitutional Constitutional ED: Denies fever(s) Cardiovascular Cardiovascular: Denies chest pain Respiratory/Chest Respiratory/Chest: Denies cough Gastrointestinal Gastrointestinal: Denies diarrhea or vomiting Musculoskeletal Musculoskeletal: Reports other Details: Left thigh pain Integumentary Denies rash or wounds Neurologic Neurologic: Denies weakness EXAM Physical Exam Const Vital Signs: 07/07/25 16:48 Temperature 98.0 F Temperature Source Oral Pulse Rate 73 Respiratory Rate 16 Blood Pressure 171/92 H Blood Pressure Mean 118 Pulse Ox 100 Oxygen Delivery Method Room Air Positive well nourished and well developed General Appearance ED: well developed HEENT normocephalic and atraumatic Eyes General Eye ED: Yes normal appearance of both eyes Neck full ROM Resp normal respiratory effort and normal air movement Cardio regular rate and regular rhythm GI soft to palpation Extremity full ROM Extremity Narrative: Left lower extremity: No medial thigh tenderness no calf tenderness. There is tenderness lateral upper thigh. Soft compartments. Pulses intact distally. Neuro oriented x3 Skin no rashes or lesions noted and no wounds MDM MDM MDM Narrative Medical decision making narrative: Interventions / MDM: Differential diagnosis: Left thigh pain, muscle strain Diagnosis considered but do not suspect: N/A My EKG interpretation: N/A Imaging independently reviewed and interpreted by myself: Ultrasound left lower extremity: Negative for DVT. External documents reviewed: N/A Test considered but not ordered:N/A ED course: Patient left thigh pain more laterally. Sent in by PCP for ultrasound. Low suspicion for DVT. No further ultrasound be ordered for rule out DVT as she is sent in by her PCP. Ultrasound discussion with crown and bridge dental lab technician negative. Patient reassured of findings. She is used Tylenol as needed. She will follow-up with her doctor. Re-evaluation: stable Disposition discussed with patient/family/significant other: Patient Case discussed with consulting clinician: N/A This note was generated with [employer] dictation software. It may contain incorrect words, spelling, and punctuation that were not noted in checking the note before signing. Radiography Diagnostic Testing: Clinical Impression(s) from Imaging Studies Venous Duplex 07/07/25 17:11 IMPRESSION: No evidence for DVT in the left lower extremity. Reading Location: [facility] Discharge Plan Triage Chief Complaint: Lower Extremity Injury ED Provider: Fausto Johnston Dx/Rx/DC Orders Clinical Impression: Acute pain of left thigh, Muscle strain Instructions: ED Muscle Strain, Extremity Prescriptions: No Action pantoprazole 40 MG tablet 40 mg PO DAILY Qty: 30 2RF pravastatin 20 MG tablet 20 mg PO DAILY fluoxetine 20 mg capsule 20 mg PO DAILY Patient Comments: take 1 capsule by mouth once daily ondansetron 4 mg tablet,disintegrating 4 mg PO Q8H PRN (Reason: nausea and vomiting) Qty: 10 0RF dicyclomine 10 mg capsule 10 mg PO BID PRN (Reason: abdominal pain) Qty: 14 0RF doxycycline monohydrate 100 mg capsule 100 mg PO BID Qty: 20 0RF ondansetron 4 mg tablet,disintegrating 4 mg PO Q6H PRN (Reason: nausea and vomiting) Qty: 7 0RF hydroxyzine HCl 10 mg tablet 10 - 20 mg PO TID PRN PRN (Reason: anxiety) topiramate 100 mg tablet 100 mg PO BID fluoxetine 40 mg capsule 40 mg PO DAILY ezetimibe 10 mg tablet 10 mg PO DAILY rosuvastatin 5 mg tablet 5 mg PO DAILY Nurtec ODT 75 mg tablet,disintegrating 75 mg PO QODAY Primary Care Provider: Justus Quiñones Referrals: Justus Quiñones MD [Primary Care Provider] - 1-2 Weeks Activity Restrictions/Additional Instructions: Ultrasound left lower leg negative for DVT. Use Tylenol as needed. Monitor symptoms and follow-up with your doctor. Print Language: Omani Disposition Disposition: Home, Self Care
[2025-07-07 18:12] VITALS: BP 121/84; PULSE 64; RESP 18; TEMP 36.6; O2SAT 100
== END 2025-07-07 18:13 | disposition home or self-care (01) ==
PROVIDERS: Emergency Provider Emergency Medicine; PCP Family Medicine; Visit Provider Emergency Medicine
DX: S76.912A Strain of unspecified muscles, fascia and tendons at thigh level, left thigh, initial encounter (principal); X58.XXXA Exposure to other specified factors, initial encounter; Z86.711 Personal history of pulmonary embolism
CPT/HCPCS: 93971; 99282

== ENCOUNTER 2025-07-17 20:24 | Observation (INO) | payer SELFPAY ==
[2025-07-17 20:26] VITALS: BP 127/61; PULSE 107; RESP 26; TEMP 36.6; O2SAT 100; BMI 24.4
--- NOTE | 2025-07-17 20:45 | CT_ITS ---
PROCEDURE: ABDOMEN/PELVIS W IV CONT ONLY 07/17/2025 REASON FOR EXAM: ABDOMINAL PAIN TECHNIQUE: Procedure Code: [id number] Modality: CT Procedure: ABDOMEN/PELVIS W IV CONT ONLY Coronal and Sagittal reconstruction series were provided. CONTRAST: Please refer to CT VOLUME: Please refer to CT mL One or more dose reduction techniques were used (e.g., Automated exposure control, adjustment of the mA and/or kV according to patient size, use of iterative reconstruction technique. RADIATION DOSE SUMMARY: CTDlvol: Please refer to CT mGy DLP: 962.57 mGycm COMPARISON: CT abdomen and pelvis March 29, 2025 FINDINGS: Lung bases: No consolidation or effusion at the visualized lung bases. Liver: Hepatic length is 14.5 cm. 14.9 mm nodular enhancing lesion at the dome of the left lobe most likely representing a hemangioma. 4 mm hypodense hepatic lesion anteriorly within the left lobe (image 30 axial) is indeterminate and too small to further characterize but similar to the prior study. 9 mm hypodense subcapsular hepatic lesion at the posterior dome of the right lobe (image 20 axial) is too small to further characterize but possibly a cyst. Clinical correlation with risk factors. If there is high risk or a known history of malignancy consider dynamic contrast MRI for further evaluation of these lesions. Hepatic attenuation is consistent with steatosis. Gallbladder/biliary: Mildly distended gallbladder measuring 4.2 cm transversely. The gallbladder wall appears slightly thickened for degree of distention. There is mild gallbladder wall mucosal enhancement. There is mild gallbladder wall edema or pericholecystic fluid. No calcified gallstones. No significant biliary dilation. Mild cholecystitis must be considered with this appearance. Clinical correlation is advised. For further confirmation consider ultrasound or HIDA scan. Pancreas: No pancreatic inflammation. No pancreatic ductal dilation. Spleen: The spleen is not enlarged. Adrenals: The adrenal glands are unremarkable. Kidneys/ureters: The kidneys enhance symmetrically without hydronephrosis. No collecting system calculi. No imaging evidence of pyelonephritis. Gastrointestinal: No hiatal hernia. The stomach is moderately distended with ingested material and an air-fluid level. No perigastric inflammation. No appearance to suggest a bowel obstruction. No focal mesenteric inflammation. Small nonspecific mesenteric lymph nodes. Scattered fecal material and gas slightly distending portions of the colon and rectum could be correlated for mild constipation. No pericolonic inflammation. No evidence of acute diverticulitis. Appendix: The appendix does not appear inflamed. Peritoneal/retroperitoneal: No free intraperitoneal air. There is no free fluid. Vascular: No abdominal aortic aneurysm, dissection or retroperitoneal hemorrhage. Lymph nodes: No pathologic appearing lymphadenopathy by size criteria. Urinary bladder: Mildly distended urinary bladder. No bladder wall thickening for degree of distention. No perivesical stranding. No calculi or gas within the urinary bladder. Reproductive: The uterus is not identified and may have been removed. The ovaries are not conclusively identified. If there are pelvic symptoms consider ultrasound. Soft tissues: No body wall hematoma or soft tissue emphysema. Osseous: Degenerative changes of the spine with findings most pronounced at the lumbosacral junction with disc space gas. Mild superior endplate compression fracture deformity at T10 is similar to the prior exam. CT/Abdomen/Pelvis W IV Cont ONLY IMPRESSION: Appearance of the gallbladder is suspicious for mild cholecystitis. Findings and recommendations discussed above. - Hepatic lesions are too small to further characterize but appears similar to th e prior exam. Clinical correlation is advised as discussed above. - Other incidental findings discussed above. Reading Location: [id number]
--- NOTE | 2025-07-17 20:45 | CT_ITS ---
PROCEDURE: BRAIN/HEAD WITHOUT CONTRAST 07/17/2025 REASON FOR EXAM: VERTIGO TECHNIQUE: Procedure Code: CTBR Modality: CT Procedure: BRAIN/HEAD WITHOUT CONTRAST Coronal and Sagittal reconstruction series were provided. One or more dose reduction techniques were used (e.g., Automated exposure control, adjustment of the mA and/or kV according to patient size, use of iterative reconstruction technique. RADIATION DOSE SUMMARY: CTDlvol: 44.99 mGy DLP: 762 mGycm FINDINGS: BRAIN: No acute intraparenchymal hemorrhage. No mass lesion. No CT evidence for acute territorial infarct. No midline shift or extra-axial collection. VENTRICLES: No hydrocephalus. ORBITS: The orbits are unremarkable. SINUSES AND MASTOIDS: The paranasal sinuses and right mastoid air cells are clear. Opacified left mastoid air cells, same as before. SOFT TISSUES: No acute abnormality seen. BONES: No acute osseous abnormality seen. CT/Brain/Head without Contrast IMPRESSION: 1. No acute intracranial abnormality. 2. 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 Reading Location: [id number]
--- NOTE | 2025-07-17 20:47 | EDS_ITS ---
HPI History of Present Illness Chief Complaint: Dizziness Detail of Chief Complaint: Dizziness and abdominal pain Informant: patient Narrative Narrative: Patient presents with complaint of dizziness that started this morning when she first tried to get up. She states that things were spinning around and round and she was nauseated and it passed after a few seconds and then she laid there for another 10 minutes or so and got up. Around midday she started having upper abdomen pain. [place] the [place] but just was not feeling well throughout the day. She went back home and wanted to lay down. She then states that she had a hard time seeing and the dizziness returned. She was nauseated. She continues to have upper abdomen pain. She denies any falls or head injuries. She denies recent use of alcohol. Denies chest pain. No prior history of vertigo. [facility] Medical History Hypercholesteremia Factor 5 Leiden mutation, heterozygous Hyperlipidemia Anxiety Home Medications ?Medication ?Instructions ?Recorded ?Last Taken ?Type pantoprazole 40 mg tablet,delayed 40 mg PO DAILY #30 t abs 10/10/16 Unknown Rx release pravastatin 20 mg tablet 20 mg PO DAILY 09/29/20 Unkn own History dicyclomine 10 mg capsule 10 mg PO BID PRN abdominal p ain 05/15/21 Unknown Rx #14 caps fluoxetine 20 mg capsule 20 mg PO DAILY 05/15/21 Unkn own History ondansetron 4 mg disintegrating 4 mg PO Q8H PRN nausea and 05/15/21 Unknown Rx tablet vomiting #10 tabs doxycycline monohydrate 100 mg 100 mg PO BID #20 CAPSU LES 06/29/23 Unknown Rx capsule ondansetron 4 mg disintegrating 4 mg PO Q6H PRN nausea and 03/29/25 Unknown Rx tablet vomiting #7 tabs ezetimibe 10 mg tablet 10 mg PO DAILY 07/07/25 Unkn own History fluoxetine 40 mg capsule 40 mg PO DAILY 07/07/25 Unkn own History hydroxyzine HCl 10 mg tablet 10 - 20 mg PO TID PRN PRN anxiety 07/07/25 Unknown History rimegepant 75 mg disintegrating 75 mg PO QODAY 5 Unknown History tablet (Nurtec ODT) rosuvastatin 5 mg tablet 5 mg PO DAILY 07/07/25 Unkno wn History topiramate 100 mg tablet 100 mg PO BID 07/07/25 Unkno wn History Allergy/AdvReac Type Severity Reaction Status Date / Time latex Allergy Rash Verified 07/17/25 20:35 Penicillins Allergy Other Verified 07/17/25 20:35 acetaminophen (From Tylenol) AdvReac Nausea Verified 07/17/25 20:35 naproxen (From Aleve) AdvReac Nausea/Vom/ Verified 07/17/25 20:35 Diarrhea Family History Mother Diabetes Heart disease Grandmother Cervical cancer Surgical History H/O neck surgery S/P S/P hysterectomy Social History Smoking Status: Never smoker alcohol intake: current alcohol intake frequency: holidays/special occasions only substance use type: does not use caffeine: Yes what type of physical activity do you participate in: none seatbelt use: sometimes do you feel safe at home: Yes 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 [employer] ROS ED Review of Systems ROS Unobtainable: other Constitutional Constitutional ED: Reports lethargy; Denies chills, fever(s), sweats or weight loss Eyes Eyes: Reports blurry vision and change in vision; Denies diplopia ENT ENT ED: Denies rhinorrhea or sore throat Cardiovascular Cardiovascular: Reports chest pain and racing heartbeat; Denies orthopnea Respiratory/Chest Respiratory/Chest: Reports dyspnea and dyspnea on exertion; Denies cough, orthopnea or sputum Gastrointestinal Gastrointestinal: Reports abdominal pain and nausea; Denies diarrhea or vomiting Genitourinary Genitourinary ED: Denies dysuria, hematuria or urinary frequency Musculoskeletal Musculoskeletal: Denies arthralgias, back pain, myalgias or neck pain Integumentary Denies abscess, Abrasions or rash Neurologic Neurologic: Reports other Details: Dizziness ; Denies headache(s) or weakness Psychiatric Psychiatric: Denies anxiety, depression or suicidal thoughts Endocrine Endocrinology: Denies polydipsia, polyphagia or polyuria Hematologic/Lymphatic Hematologic/Lymphatic: Denies easy bleeding, easy bruising or lymphadenopathy Allergic/Immunologic Allergic/Immunologic ED: Denies mouth swelling, tongue swelling or urticaria EXAM Physical Exam Const Vital Signs: 07/17/25 20:26 07/17/25 22:42 Temperature 97.8 F Temperature Source Oral Pulse Rate 107 H 91 Respiratory Rate 26 H 14 Blood Pressure 127/61 H 102/59 L Blood Pressure Mean 83 73 Pulse Ox 100 99 Oxygen Delivery Method Room Air Room Air Positive well nourished and well developed General Appearance ED: well developed and NAD HEENT Reports TM's clear and moist mucous membranes normocephalic and atraumatic; Negative for trauma or tenderness Tympanic Membrane ED: Yes TM's clear Eyes PERRL and EOMs intact bilaterally General Eye ED: Negative for pale conjunctiva or scleral icterus Neck no lymphadenopathy, supple and no JVD General: Negative for tenderness Chest Wall inspection of chest normal and palpation of chest normal Chest: Negative for tenderness Resp normal respiratory effort and clear to auscultation bilaterally Effort and Inspection: Negative for respiratory distress or pain with movement Auscultation: Negative for rhonchi, wheezes or diminished lung sounds Cardio regular rate, regular rhythm, S1 normal heart sound, S2 normal heart sound and no murmurs Peripheral Pulses: pulses 2+ throughout GI normal to inspection, nondistended, normoactive bowel sounds, soft to palpation, non-tender, non-distended and no masses Back/Spine no CVA tenderness and no thoracic nor lumbar tenderness Extremity normal to inspection General Extremety ED: Negative for edema General Extremity: Negative for edema Neuro oriented x3, CN's II-XII intact bilaterally, no sensory deficits noted and gait normal Neuro Narrative: Positive Hallpike maneuver with head turn to the left she had some horizontal nystagmus that was fatigable with fast component to the left side Sensorium / Orientation: awake, alert, oriented to person, oriented to place and oriented to time Motor Exam: strength 5/5 throughout and strength abnormal Psych mental status grossly normal Skin no rashes or lesions noted and no wounds MDM MDM MDM Narrative Medical decision making narrative: Patient presents with 2 complaints 1 of dizziness and 1 of abdominal pain. Both symptoms started today. Vertigo started first this morning. Short-lived initially. Abdominal pain started midday. Pain to the right upper abdomen. She has had nausea with no vomiting. She has had no fever. Patient had an IV line established. She was medicated with Reglan 5 mg IV. She was given Antivert 25 mg p.o. CBC with differential obtained showed a white count of 9.4 with hemoglobin 15 and platelet count of 261. Chemistries unremarkable. LFTs were normal. Lipase was normal. Urinalysis was normal. Alcohol less than 10. CT scan of the brain without contrast essentially unremarkable. CT scan of the abdomen pelvis had some concerns about appearance of the gallbladder and that it was distended and gallbladder wall appeared thickened with some edema and possibly some Deshaun cholecystic fluid findings suspicious for mild cholecystitis. Discussed case with general surgeon on-call Dr. Stern. Given that there are no gallstones and normal lab findings was recommended that we observe the patient overnight and he can see the patient in the a.m. for repeat exam and evaluation. Discussed with hospitalist who will admit patient. Patient's vertigo did improve with treatment. I did did give her Toradol 15 mg IV for her headache. She continues to have abdominal discomfort on palpation of the right upper quadrant. Lab Data Attestation: I reviewed the patient's lab results. Labs: Laboratory Results - last 24 hr 07/17/25 07/17/25 21:03 22:28 WBC 9.4 RBC 5.10 Hgb 15.1 H Hct 44.0 MCV 86.3 MCH 29.6 MCHC 34.3 RDW Std Deviation 40.4 RDW Coeff of Marcie 12.8 Plt Count 261 MPV 10.5 Immature Gran % (Auto) 0.200 Neut % (Auto) 58.4 Lymph % (Auto) 32.7 Cavalier % (Auto) 6.9 Eos % (Auto) 1.5 Baso % (Auto) 0.3 Absolute Neuts (auto) 5.5 Absolute Lymphs (auto) 3.07 Nucleated RBC % 0 Sodium 140 Potassium 3.5 Chloride 106 Carbon Dioxide 20.2 L Anion Gap 13 BUN 15 Creatinine 1.04 Estim Creat Clear Calc 53.40 Est GFR (MDRD) Non-Af 64 BUN/Creatinine Ratio 13.9 Glucose 147 H Calcium 10.2 Total Bilirubin 0.30 AST 24 ALT 17 Alkaline Phosphatase 68 Total Protein 7.3 Albumin 4.6 Globulin 2.7 Albumin/Globulin Ratio 1.7 Lipase 44 Urine Color Yellow Urine Clarity Clear Urine pH 6.0 Ur Specific [place] 1.010 Urine Protein 30 H Urine Glucose (UA) Normal Urine Ketones Negative Urine Occult Blood Negative Urine Nitrite Negative Urine Bilirubin Negative Urine Urobilinogen Normal Ur Leukocyte Esterase Negative Urine RBC 0-5 SEEN Urine WBC 0-5 SEEN Ur Squamous Epith Cells 0 SEEN Urine Bacteria 0 SEEN Urine Mucus 0 SEEN Ethyl Alcohol < 10.1 Radiography Diagnostic Testing: Clinical Impression(s) from Imaging Studies Abdomen/Pelvis CT 07/17/25 20:45 IMPRESSION: Appearance of the gallbladder is suspicious for mild cholecystitis. Findings and recommendations discussed above. - Hepatic lesions are too small to further characterize but appears similar to the prior exam. Clinical correlation is advised as discussed above. - Other incidental findings discussed above. Reading Location: [facility] Brain CT 07/17/25 20:45 IMPRESSION: 1. No acute intracranial abnormality. 2. 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 Reading Location: [id number] Discharge Plan Triage Chief Complaint: Dizziness Other Complaint: Eye Problem ED Provider: Chani Ng Dx/Rx/DC Orders Clinical Impression: Abdominal pain, Benign paroxysmal positional vertigo Prescriptions: No Action pantoprazole 40 MG tablet 40 mg PO DAILY Qty: 30 2RF pravastatin 20 MG tablet 20 mg PO DAILY fluoxetine 20 mg capsule 20 mg PO DAILY Patient Comments: take 1 capsule by mouth once daily ondansetron 4 mg tablet,disintegrating 4 mg PO Q8H PRN (Reason: nausea and vomiting) Qty: 10 0RF dicyclomine 10 mg capsule 10 mg PO BID PRN (Reason: abdominal pain) Qty: 14 0RF doxycycline monohydrate 100 mg capsule 100 mg PO BID Qty: 20 0RF ondansetron 4 mg tablet,disintegrating 4 mg PO Q6H PRN (Reason: nausea and vomiting) Qty: 7 0RF hydroxyzine HCl 10 mg tablet 10 - 20 mg PO TID PRN PRN (Reason: anxiety) topiramate 100 mg tablet 100 mg PO BID fluoxetine 40 mg capsule 40 mg PO DAILY ezetimibe 10 mg tablet 10 mg PO DAILY rosuvastatin 5 mg tablet 5 mg PO DAILY Nurtec ODT 75 mg tablet,disintegrating 75 mg PO QODAY Primary Care Provider: Justus Quiñones Referrals: Justus Quiñones MD [Primary Care Provider] - Print Language: Gibraltarian Disposition Disposition: Acute Care [facility]
[2025-07-17] MEDS: 0.9% Normal Saline (1000mL) 1,000 ML 150 ML IV (20:55)
[2025-07-17 21:11] LABS: Hematocrit 44.0 % (37-47); Hemoglobin 15.1 g/dL (12.0-15.0); Immature Granulocytes Count 0.020 X10^3/uL (0.0-0.0); Mean Corp Hgb Conc 34.3 g/dL (32-36); Mean Corpuscular Volume 86.3 fL (81-99); Mean Platelet Vol. 10.5 fl (6.2-12.0); NRBC Flagged by Analyzer 0 % (0-5); Platelet Count 261 K/mm3 (150-450); RBC Distribution Width CV 12.8 % (11.6-14.6); RBC Distribution Width SD 40.4 fl (35.1-43.9); Red Blood Count 5.10 M/mm3 (4.2-5.4); White Blood Count 9.4 K/mm3 (4.4-11.0)
--- OUTSIDE RECORDS SUMMARY | 2025-07-17 21:13 | XMS RPT_ITS | CCD ---
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 Name Role Phone Sang Sanders Unavailable Unavailable PROVIDER, UNKNOWN Unavailable Unavailable PROVIDER, UNKNOWN Unavailable Unavailable Farzana Alexander Unavailable Unavailable PROVIDER, UNKNOWN Unavailable Unavailable PROVIDER, UNKNOWN Unavailable Unavailable PARRIS KNOWLES Unavailable Unavailable KASANDRA NG Unavailable Unavaila Justus Torres MD Primary Care Provider Justus Mcdonald MD Primary Care Provider Justus Mcdonald MD Primary Care Provider Sanya CARLSON, Ahmed Unavailable Sanya CARLSON, Ahmed Unavailable Justus Mcdonald MD Primary Care Provider Yoanna SALES SUPPORT REP.Amber CONWAY Unavailable Agnes SALES SUPPORT REP.MAN, Arlet Barker Unavailable Dr. Justus Mcdonald MD Primary Care Provider Dr. Mango Leone MD Emergency Provider [phone] Dr. Mango Leone MD Attending Provider Dr. Fausto Johnston DO Emergency Provider [phone] JUSTUS MCDONALD Primary Care Unavailable AMBER LENZ Attending Unavailable JUSTUS MCDONALD Primary Care Unavailable JUSTUS MCDONALD Primary Care Unavailable LISA CORTES Referring Unavailable JUSTUS MCDONALD Primary Care Unavailable JUSTUS MCDONALD Primary Care Unavailable JUSTUS MCDONALD Primary Care Unavailable NELSON MI Referring Unavailable ARLET GROVE Attending Unavailable JUSTUS MCDONALD Referring Unavailable JUSTUS MCDONALD Primary Care Unavailable ARLET GROVE Attending Unavailable SELF Referring Unavailable JUSTUS MCDONALD Primary Care Unavailable ARLET GROVE Referring Unavailable JUSTUS MCDONALD Primary Care Unavailable JUSTUS MCDONALD Attending Unavailable JUSTUS MCDONALD Primary Care Unavailable SELF Referring Unavailable JUSTUS MCDONALD Primary Care Unavailable Kenyon Gasca Attending Unavailable BurdenJustus marion Referring Unavailable Harry Justus Primary Care Unavailable BurdenJustus Primary Care Unavailable Fausto Johnston Attending Unavailable Mango Leone Attending Unavailable Harry Justus Primary Care Unavailable Allergies Allergy Classification Reported Allergen(s) Allergy Type Date of Onset Reaction(s) Facility (20 sources) Acetaminophen; Translations: [ACETAMINOPHEN] Drug Allergy 7 Other: See Comments [facility] (20 sources) Acetaminophen / HYDROcodone; Translations: [HYDROCODONE-ACET AMINOPHEN] Drug Allergy [address] [facility] (20 sources) Adhesive Tape; Translations: [ADHESIVE TAPE (ROSINS)] Allergy to substance [address] [facility] (20 sources) atorvastatin; Translations: [ATORVASTATIN CALCIUM] Drug Allergy [address] [facility] (20 sources) Naproxen; Translations: [NAPROXEN SODIUM] Drug Allergy [address] [facility] (10 sources) Penicillins; Translations: [PENICILLINS] Drug Allergy [address] [facility] (20 sources) Sulfamethoxazole; Translations: [SULFAMETHOXAZOLE ] Drug Allergy [address] [facility] Work Phone: (20 sources) Penicillins Drug Allergy [address] [facility] (20 sources) Latex; Translations: [LATEX] Drug Allergy [address] [facility] (8 sources) Penicillins Drug Allergy [address] [facility] (2 sources) Naproxen Drug Allergy 5 Nausea/Vom/Diar jcarlos [facility] (2 sources) Penicillins Allergy to substance 5 Other [facility] (1 source) Acetaminophen Drug Allergy 5 [facility] (1 source) Latex Drug allergy (disorder) 5 [facility] (1 source) Naproxen Drug Allergy 5 [facility] (1 source) Penicillins Drug allergy (disorder) [facility] Medications Current Medications Medication Drug Class(es) Dates Sig (Normalized) Sig (Original) benzonatate 100 mg oral capsule (11 sources) Non-narcotic Antitussive Start: 01-04-2025 End: 01-19-2025 take 1 capsule by mouth every eight hours as needed for cough and cough benzonatate (TESSALON PERLE) 100 mg capsule Indications: Subacute cough Take 1 capsule by mouth every 8 hours as needed for cough for up to 15 days. 30 capsule 01/04/2025 01/19/2025 Active Start: 10-06-2024 End: 01-04-2025 take 1 capsule by mouth every eight hours as needed benzonatate (TESSALON PERLE) 100 mg capsule Take 1 capsule by mouth three times a day as needed. 21 capsule 10/06/2024 01/04/2025 Discontinued Start: 01-09-2024 End: 06-15-2024 take 2 capsules by mouth every eight hours as needed benzonatate (TESSALON PERLES) 100 mg capsule Take 2 capsules by mouth three times a day as needed. 30 capsule 0 01/09/2024 06/15/2024 Discontinued (Other) Comment on above: Take 2 capsules by m outh three times a day as needed. dicyclomine hydrochloride 10 mg oral capsule (2 sources) Anticholinergic Start: 05-15-20 take 1 capsule by mouth twice daily as needed for pain Dicyclomine 10 mg capsule Active 10 mg PO TWICE A DAY as needed for abdominal pain 14 0 May 15, 2021 9:55pm doxycycline hyclate 100 mg oral tablet (7 sources) Tetracycline-class Drug Start: 01-07-20 End: 01-18-20 25 take 1 tablet by mouth twice daily doxycycline (VIBRA-TABS) 100 mg tablet Indications: Acute bronchitis, unspecified organism Take 1 tablet by mouth two times a day for 10 days. 20 tablet 01/07/2025 01/17/2025 Active Start: 01-09-2024 End: 01-16-2024 take 1 tablet by mouth twice daily doxycycline (VIBRA-TABS) 100 mg tablet Take 1 tablet by mouth two times a day for 7 days. 14 tablet 0 01/09/2024 01/16/2024 Active Start: 08-24-2023 End: 08-31-2023 take 1 tablet by mouth twice daily doxycycline (VIBRA-TABS) 100 mg tablet Indications: Rhinosinusitis Take 1 tablet by mouth two times a day for 7 days. 14 tablet 0 08/24/2023 08/31/2023 Active Start: 06-29-2023 take 1 capsule by mo [facility] twice daily Doxycycline Monohydrate 100 mg capsule Active 100 mg PO TWICE A DAY 20 June 29, 2023 12:00am Comment on above: Take 1 tablet by carlo th two times a day for 7 days. ezetimibe 10 mg oral tablet (20 sources) Dietary Cholesterol Absorption Inhibitor Start: 06-30-2024 take 1 tablet by mouth once daily ezetimibe (ZETIA) 10 mg tablet Take 1 tablet by mouth once daily. 30 tablet 5 06/30/2024 Active Start: 05-30-2020 End: 12-14-2020 take 1 tablet by mouth once daily ezetimibe (ZETIA) 10 mg tablet Indications: Hyperlipidemia, unspecified hyperlipidemia type Take 1 tablet by mouth once daily. 30 tablet 2 05/30/2020 12/14/2020 Discontinued famotidine 20 mg oral tablet (9 sources) Histamine-2 Receptor Antagonist Start: 04-02-2022 End: 09-29-2022 take 1 tablet by mouth once daily famotidine (PEPCID) 20 mg tablet Take 1 tablet by mouth once daily. 30 tablet 5 04/02/2022 09/29/2022 Active Start: 01-29-2022 End: 02-28-2022 take 1 tablet by mouth once daily famotidine (PEPCID) 20 mg tablet Take 1 tablet by mouth once daily. 30 tablet 1 01/29/2022 02/28/2022 Active Comment on above: Take 1 tablet by carlo th once daily. FLUoxetine 40 mg oral capsule (20 sources) Serotonin Reuptake Inhibitor Start: 06-15-2024 End: 05-11-2026 take 1 capsule by mouth once daily FLUoxetine (PROZAC) 40 mg capsule Indications: Anxiety Take 1 capsule by mouth once daily. 90 capsule 3 05/11/2025 05/11/2026 Active Start: 05-20-2023 End: 05-19-2024 take 1 capsule by mouth once daily FLUoxetine (PROZAC) 40 mg capsule Indications: Anxiety Take 1 capsule by mouth once daily. 30 capsule 11 05/20/2023 Active Start: 12-14-2020 End: 05-20-2023 take 1 capsule by mouth once daily Fluoxetine 20 mg capsule Active 20 mg PO DAILY May 15, 2021 12:00am Comment on above: Take 1 capsule by mo ut once daily. hydrOXYzine hydrochloride 10 mg oral tablet (20 sources) Antihistamine Start: 09-18-20 24 End: 11-07-20 25 take 10-20 mg by mouth every eight hours as needed for anxiety and anxiety hydrOXYzine HCl (ATARAX) 10 mg tablet Indications: Anxiety Take 1-2 tablets by mouth three times a day as needed. 180 tablet 5 05/11/2025 11/07/2025 Active Start: 06-29-2024 take 10-20 mg by carlo th every eight hours as needed hydrOXYzine HCl (ATARAX) 10 mg tablet Take 1-2 tablets by mouth three times a day as needed. 90 tablet 2 06/29/2024 Active Start: 05-20-2023 End: 06-15-2024 take 1 capsule by mouth every eight hours as needed hydrOXYzine pamoate (VISTARIL) 25 mg capsule Take 1 capsule by mouth three times daily as needed. 30 capsule 0 05/20/2023 06/15/2024 Discontinued (Other) Comment on above: Take 1 capsule by mo [facility] three times daily as needed. methocarbamol 500 mg oral tablet (1 source) Muscle Relaxant Start : 03-14 End: 03-17 take 1 tablet by mouth every six hours as needed methocarbamol (ROBAXIN) 500 mg tablet Take 1 tablet by mouth every 6 hours as needed (Pain) for up to 3 days. 12 tablet 0 03/14/2023 03/17/2023 Active Comment on above: Take 1 tablet by carlo every 6 hours as needed (Pain) for up to 3 days. methylPREDNISolone (1 source) Corticosteroid Start : 01-07 End: 01-13 methylPREDNISolone (MEDROL, ANALISA,) 4 mg Dose-Pack Indications: Acute bronchitis, unspecified organism Take as instructed per package. 21 tablet 01/07/2025 01/13/2025 Active nitrofurantoin, macrocrystals 25 mg / nitrofurantoin, monohydrate 75 mg oral capsule (1 source) Nitrofuran Antibacterial Start : 02-06 End: 02-13 take 1 capsule by mouth twice daily at mealtime nitrofurantoin monohydrate and macrocrystal (MACROBID) 100 mg capsule Take 1 capsule by mouth twice daily with meals for 7 days. 14 capsule 0 02/06/2023 02/13/2023 Active Comment on above: Take 1 capsule by mo [facility] twice daily with meals for 7 days. ondansetron 4 mg oral tablet (6 sources) Serotonin-3 Receptor Antagonist Start : 05-11 End: 06-10 take 1 tablet by mouth every eight hours as needed for nausea and nausea ondansetron (ZOFRAN) 4 mg tablet Indications: Nausea Take 1 tablet by mouth every 8 hours as needed for nausea/vomiting. 90 tablet 05/11/2025 06/10/2025 Active Start: 03-29-2025 take 1 tablet by [facility] every six hours as needed for nausea and vomiting Ondansetron 4 mg tablet,disintegrating Active 4 mg PO EVERY 6 HOURS as needed for nausea and vomiting March 29, 2025 12:00am Start: 05-15-2021 take 1 tablet by carlo every eight hours as needed for nausea and vomiting Ondansetron 4 mg tablet,disintegrating Active 4 mg PO Q8H as needed for nausea and vomiting 10 May 15, 2021 12:00am pantoprazole 40 mg delayed release oral tablet (20 sources) Proton Pump Inhibitor Start: 06-15-2024 End: 12-05-2025 take 1 tablet by mouth once daily pantoprazole DR (PROTONIX) 40 mg tablet Indications: Heartburn Take 1 tablet by mouth once daily. 90 tablet 1 06/08/2025 12/05/2025 Active Start: 06-11-2022 End: 05-28-2023 take 1 tablet by mouth once daily pantoprazole DR (PROTONIX) 40 mg tablet Indications: Heartburn Take 1 tablet by mouth once daily. 30 tablet 5 12/03/2022 05/28/2023 Discontinued Start: 10-10-2016 End: 01-29-2022 take 1 tablet by mouth once daily pantoprazole DR (PROTONIX) 40 mg tablet Indications: Heartburn take 1 tablet by mouth once daily 30 tablet 5 08/17/2021 01/29/2022 Discontinued (Course of therapy completed) Comment on above: take 1 tablet by carlo th once daily Take 1 tablet by carlo th once daily. pravastatin sodium 20 mg oral tablet (20 sources) HMG-CoA Reductase Inhibitor Start: 0 End: 5 take 1 tablet by mouth once daily Pravastatin 20 MG tablet Active 20 mg PO DAILY September 29, 2020 1:00am Comment on above: Take 1 tablet by carlo th daily at bedtime. predniSONE 20 mg oral tablet (5 sources) Start: 4 End: 4 take 2 tablets by mouth once daily predniSONE (DELTASONE) 20 mg tablet Take 2 tablets by mouth once daily for 5 days. 10 tablet 0 01/09/2024 01/14/2024 Active Start: 08-24-2023 End: 08-29-2023 take 2 tablets by mouth once daily predniSONE (DELTASONE) 20 mg tablet Indications: Rhinosinusitis Take 2 tablets by mouth once daily for 5 days. 10 tablet 0 08/24/2023 08/29/2023 Active Start: 12-03-2022 End: 12-15-2022 predniSONE (DELTASONE) 10 mg tablet Indications: Acute pain of right knee Take 4 tabs daily x 3 days, then 3 tabs x 3 days, 2 tabs x 3 days, then 1 tab x3 days with food. 30 tablet 0 12/03/2022 12/15/2022 Active Comment on above: Take 4 tabs daily x 3 days, then 3 tabs x 3 days, 2 tabs x 3 days, then 1 tab x3 days with food. Take 2 tablets by mo [facility] once daily for 5 days. rimegepant 75 mg disintegrating oral tablet (20 sources) Start: 01-31-2024 End: 02-26-2024 rimegepant (NURTEC ODT) 75 mg disintegrating tablet Take one tablet every other day 16 tablet 2 02/26/2024 Active Start: 06-11-2023 End: 01-31-2024 take 1 tablet by mouth once daily as needed rimegepant (NURTEC ODT) 75 mg disintegrating tablet Take 1 tablet by mouth once daily as needed. 8 tablet 2 01/31/2024 01/31/2024 Discontinued Comment on above: Take 1 tablet by carlo th once daily as needed. Take one tablet ever y other day rosuvastatin calcium 5 mg oral tablet (6 sources) HMG-CoA Reductase Inhibitor Start: End: take 1 tablet by mouth once daily rosuvastatin (CRESTOR) 5 mg tablet Indications: Mixed hyperlipidemia Take 1 tablet by mouth once daily. 90 tablet 3 05/11/2025 05/11/2026 Active topiramate 100 mg oral tablet (20 sources) Start: End: take 1 tablet by mouth in the morning topiramate (TOPAMAX) 100 mg tablet Indications: Migraine without aura and without status migrainosus, not intractable take 1 tablet by mouth IN THE MORNING and 1 tablet AT NIGHT 60 tablet 5 07/08/2025 Active Start: 08-28-2024 End: 05-11-2025 topiramate (TOPAMAX) 100 mg tablet take 1/2 tablet by mouth IN THE MORNING and 1 tablet AT NIGHT 45 tablet 3 03/02/2025 05/11/2025 Discontinued Start: 06-11-2023 End: 08-28-2024 topiramate (TOPAMAX) 100 mg tablet Take half a tablet (50mg) in the morning and one tablet (100mg) at night. 45 tablet 3 02/26/2024 08/28/2024 Discontinued Start: 05-31-2023 End: 05-30-2024 take 1 tablet by mouth once daily at bedtime topiramate (TOPAMAX) 25 mg tablet Indications: Headache, unspecified headache type Take 1 tablet by mouth daily at bedtime. 30 tablet 11 05/31/2023 09/24/2023 Discontinued Comment on above: Take 1 tablet by carlo th daily at bedtime. Take half a tablet ( 50mg) in the morning and one tablet (100mg) at night. Completed/Discontinued Medications Medication Drug Class(es) Dates Sig (Normalized) Sig (Original) acetaminophen 325 mg / HYDROcodone bitartrate 5 mg oral tablet (2 sources) Opioid Agonist Start: 09-29-2020 End: 10-01-2020 Hydrocodone-Aceta minophen 1 TABLET tablet Discontinued 1 {tbl} PO EVERY 4 HOURS NEEDED as needed for Pain 15 2 0 September 29, 2020 September 30, 2020 1:00am October 01, 2020 1:03am Back pain Dorsalgia, unspecified [id number] actuat albuterol 0.09 mg/actuat metered dose inhaler (12 sources) beta2-Adrenergic Agonist Start: 11-29-2021 End: 11-27-2022 take 2 puff(s) by inhalation every four hours as needed for wheezing albuterol HFA (PROVENTIL HFA, VENTOLIN HFA) 90 mcg/actuation inhaler Indications: URI with cough and congestion Inhale 2 Puffs as instructed every 4 hours as needed for wheezing/shortnes s of breath. 1 Each 0 11/29/2021 11/27/2022 Discontinued Comment on above: Inhale 2 Puffs as in structed every 4 hours as needed for wheezing/shortness of breath. bisacodyl 5 mg delayed release oral tablet (12 sources) Stimulant Laxative Start: 04-20-2021 End: 11-27-2022 Bisacodyl (DULCOLAX) 5 mg tab Indications: Colon cancer screening Use as directed for Miralax / Gatorade Bowel Prep Kit 4 tablet 0 04/20/2021 11/27/2022 Discontinued Comment on above: Use as directed for Miralax / Gatorade Bowel Prep Kit dextromethorphan hydrobromide 3 mg/ml / promethazine hydrochloride 1.25 mg/ml oral solution (6 sources) Phenothiazine, Uncompetitive U-thcuzk-D-aspartat e Receptor Antagonist, Sigma-1 Agonist Start: 11-29-2021 End: 02-01-2022 take 5 mL by mouth four times daily as needed for cough Promethazine-DM (PHENERGAN-DM) 6.25-15 mg/5 mL syrup Indications: URI with cough and congestion Take 5 mL by mouth four times daily as needed for cough. 240 mL 0 01/30/2022 02/01/2022 Discontinued (Course of therapy completed) Comment on above: Take 5 mL by mouth f our times daily as needed for cough. ELDERBERRY FRUIT (12 sources) End: 11-27-2022 elderberry fruit (ELDERBERRY ORAL) Take by mouth once daily. 0 11/27/2022 Discontinued elderberry fruit (ELDERBERRY ORAL) Take by mouth once daily. 0 Active Comment on above: Take by mouth once d aily. escitalopram 20 mg oral tablet (3 sources) Serotonin Reuptake Inhibitor Start: 0 End: take 1 tablet by mouth once daily escitalopram oxalate (LEXAPRO) 20 mg tablet Indications: Adjustment disorder with anxious mood Take 1 tablet by mouth once daily. 90 tablet 1 02/29/2020 12/14/2020 Discontinued (Discontinued by Patient) Start: 04-23-2019 End: 07-16-2019 take 1 tablet by mouth once daily Escitalopram Oxalate 20 MG tablet Discontinued 20 mg PO DAILY April 23, 2019 12:00am July 16, 2019 10:25am esomeprazole 40 mg delayed release oral capsule (5 sources) Proton Pump Inhibitor Start: 01-29-2022 End: 04-29-2022 take 1 capsule by mouth once daily esomeprazole (NEXIUM) 40 mg capsule Take 1 capsule by mouth once daily. 90 capsule 1 01/29/2022 02/01/2022 Discontinued (Cost of medication) Comment on above: Take 1 capsule by [facility] once daily. ferrous sulfate 325 mg oral tablet (1 source) Start: 07-18-2020 End: 01-14-2021 take 1 tablet by mouth twice daily at mealtime ferrous sulfate 325 mg (65 mg iron) tablet Indications: Iron deficiency anemia, unspecified iron deficiency anemia type Take 1 tablet by mouth twice daily with meals. 60 tablet 5 07/18/2020 01/14/2021 1.5 ml fremanezumab-vfrm 150 mg/ml auto-injector (5 sources) Start: 02-26-2024 End: 06-15-2024 inject 1.5 mL by subcutaneous injection every month fremanezumab-vfrm (AJOVY AUTOINJECTOR) 225 mg/1.5 mL auto-injector Inject 1.5 mL subcutaneously once every month. Do not shake. 1.5 mL 5 02/26/2024 06/15/2024 Discontinued (Other) Comment on above: Inject 1.5 mL subcut aneously once every month. Do not shake. meclizine hydrochloride 25 mg oral tablet (20 sources) Antiemetic Start: 05-20-2023 End: 06-15-2024 take 1 tablet by mouth every six hours as needed for dizziness meclizine (ANTIVERT) 25 mg tab Indications: Motion sickness, subsequent encounter Take 1 tablet by mouth every 6 hours as needed (dizziness). 30 tablet 0 05/20/2023 06/15/2024 Discontinued (Other) Start: 01-23-2023 End: 05-20-2023 take 0.5-1 tablets by mouth every six hours as needed meclizine (ANTIVERT) 12.5 mg tab Indications: Motion sickness, initial encounter , Dizziness Take 0.5-1 tablets by mouth every 6 hours as needed (motion sickness). 60 tablet 1 01/23/2023 02/22/2023 take 2 tablets by mo uth once daily meclizine (ANTIVERT) 12.5 mg tab Take 25 mg by mouth once daily. 0 Active Comment on above: Take 0.5-1 tablets b y mouth every 6 hours as needed (motion sickness). Take 25 mg by mouth once daily. Take 12.5 mg by mout h every 6 hours as needed. Take 1 tablet by carlo th every 6 hours as needed (dizziness). MULTIVITAMIN ORAL (12 sources) End: 11-27-2022 MULTIVITAMIN ORAL Take by mouth once daily. 0 11/27/2022 Discontinued MULTIVITAMIN ORA L Take by mouth once daily. 0 Active Comment on above: Take by mouth once d aily. omeprazole 40 mg delayed release oral capsule (3 sources) Proton Pump Inhibitor Start: 2 End: 2 take 1 capsule by mouth once daily omeprazole (PRILOSEC) 40 mg capsule take 1 capsule by mouth once daily 30 capsule 1 04/11/2022 06/11/2022 Discontinued (Course of therapy completed) Start: 02-01-2022 End: 03-03-2022 take 1 capsule by mouth once daily omeprazole (PRILOSEC) 40 mg capsule Take 1 capsule by mouth once daily. 30 capsule 1 02/01/2022 03/03/2022 Active Comment on above: Take 1 capsule by mo uth once daily. take 1 capsule by mo uth once daily oxaprozin 600 mg oral tablet (1 source) Nonsteroidal Anti-inflammatory Drug Start: 08-23-20 End: 12-14-19 take 2 tablets by mouth once daily oxaprozin (DAYPRO) 600 mg tablet Take 2 tablets by mouth once daily. 60 tablet 1 08/23/2020 12/14/2020 Discontinued (Course of therapy completed) polyethylene glycol 3350 54247 mg powder for oral solution (12 sources) Osmotic Laxative Start: 04-20-20 End: 11-27-19 23 polyethylene glycol 3350 (MIRALAX, GLYCOLAX) 17 gram/dose powder Indications: Colon cancer screening Use as directed for Miralax / Gatorade Bowel Prep Kit 238 g 0 04/20/2021 11/27/2022 Discontinued Comment on above: Use as directed for Miralax / Gatorade Bowel Prep Kit polyethylene glycol 3350 001322 mg / potassium chloride 2970 mg / sodium bicarbonate 6740 mg / sodium chloride 5860 mg / sodium sulfate 70021 mg powder for oral solution (1 source) Osmotic Laxative Start: 03-19-20 End: 03-19-20 peg 3350-Electrolytes (GOLYTELY) 236-22.74-6.74 -5.86 gram suspension Take 4,000 mL by mouth one time only for 1 dose. 1 Each 0 03/19/2023 03/19/2023 Comment on above: Take 4,000 mL by carlo th one time only for 1 dose. promethazine hydrochloride 25 mg oral tablet (20 sources) Phenothiazine Start: 02-26-20 End: 05-11-20 take 1 tablet by mouth every four hours as needed promethazine (PHENERGAN) 25 mg tablet Take 1 tablet by mouth every 4 hours as needed for nausea/vomiting. 10 tablet 2 02/26/2024 05/11/2025 Discontinued (Course of therapy completed) Start: 12-14-2022 take 1 tablet by carlo th once daily as needed for nausea promethazine (PHENERGAN) 25 mg tablet Indications: Hiatal hernia with GERD and esophagitis Take 1 tablet by mouth once daily as needed (for nausea). 30 tablet 0 12/14/2022 Active Start: 02-01-2022 End: 11-27-2022 take 1 tablet by mouth every six hours as needed promethazine (PHENERGAN) 50 mg tab(s) Take 1 tablet by mouth every 6 hours as needed. 60 tablet 3 10/17/2022 11/27/2022 Discontinued (Discontinued by Patient) take 1 tablet by carlo th once daily promethazine (PHENERGAN) 50 mg tab(s) Take 50 mg by mouth once daily. 0 Active Comment on above: Take 1 tablet by carlo th every 6 hours as needed. Take 50 mg by mouth once daily. Take 1 tablet by carlo th once daily as needed (for nausea). Take 1 tablet by carlo th every 4 hours as needed for nausea/vomiting. rizatriptan 10 mg oral tablet (3 sources) Serotonin-1b and Serotonin-1d Receptor Agonist Start: 05-31-20 End: 06-11-20 rizatriptan (MAXALT) 10 mg tablet Indications: Headache, unspecified headache type TAKE 1 TABLET BY MOUTH IF NEEDED FOR MIGRAINE HEADACHE 9 tablet 4 06/03/2023 06/11/2023 Discontinued Comment on above: TAKE 1 TABLET BY CARLO TH IF NEEDED FOR MIGRAINE HEADACHE Take 1 tablet by carlo th once daily as needed for migraine headache (see administration instructions). traMADol hydrochloride 50 mg oral tablet (20 sources) Opioid Agonist Start: 01-30-20 End: 05-31-20 take 1 tablet by mouth every six hours as needed for pain traMADol (ULTRAM) 50 mg tablet Indications: Iron deficiency anemia due to chronic blood loss , Factor V Leiden (HCC) Take 1 tablet by mouth every 6 hours as needed for pain. 20 tablet 01/29/2023 05/31/2023 Discontinued Start: 12-03-2022 End: 12-10-2022 take 1 tablet by mouth every eight hours as needed for pain traMADol (ULTRAM) 50 mg tablet Indications: Acute pain of right knee Take 1 tablet by mouth every 8 hours as needed for pain for up to 7 days. 21 tablet 0 12/03/2022 12/10/2022 Active Comment on above: Take 1 tablet by carlo th every 8 hours as needed for pain for up to 7 days. Take 1 tablet by carlo th every 6 hours as needed for pain. traZODone hydrochloride 50 mg oral tablet (1 source) Serotonin Reuptake Inhibitor Start: 0 End: take 1 tablet by mouth once daily at bedtime traZODone (DESYREL) 50 mg tablet Indications: Adjustment disorder with anxious mood Take 1 tablet by mouth daily at bedtime. 30 tablet 3 06/15/2020 12/14/2020 Discontinued (Discontinued by Patient) Problems Active Problems Problem Classification Problem Date Documented Da te Episodic/Chronic Allergic reactions (2 sources) Urticaria; Translations: [Urticaria, unspecified] 11-03-2020 Episodic Anxiety disorders (20 sources) Anxiety; Translations: [Anxiety disorder, unspecified] Onset: 2 01-11-2012 Chronic Blindness and vision defects (2 sources) Photophobia; Translations: [Visual discomfort, bilateral] 06-07-2023 Episodic Coagulation and hemorrhagic disorders (20 sources) Activated protein C resistance; Translations: [Factor V Leiden mutation] Onset: 7 09-30-2018 Chronic Conditions associated with dizziness or vertigo (4 sources) Dizziness; Translations: [Dizziness and giddiness] Episodic Deficiency and other anemia (20 sources) Iron deficiency anemia due to blood loss; Translations: [Iron deficiency anemia secondary to blood loss (chronic)] Onset: 3 Chronic Deficiency and other anemia (2 sources) Iron deficiency anemia; Translations: [Iron deficiency anemia, unspecified] Episodic Disorders of lipid metabolism (20 sources) Hyperlipidemia; Translations: [Hyperlipidemia, unspecified] Onset: 2 12-10-2011 Chronic Disorders of teeth and jaw (1 source) Temporomandibular cjegk-vxhk-iqqmmwcsbsy syndrome; Translations: [Arthralgia of temporomandibular joint, unspecified side] 08-09-2023 Episodic Esophageal disorders (20 sources) Gastroesophageal reflux disease; Translations: [Gastro-esophageal reflux disease without esophagitis] Onset: 8 10-29-2018 Chronic External Injury - Natural / Environment (2 sources) Exposure to other specified factors, initial encounter; Translations: [Exposure to other specified factors, initial encounter] Onset: 7 Fluid and electrolyte disorders (5 sources) Hyperkalemia; Translations: [Hyperkalemia] 06-16-2024 Episodic Gastritis and duodenitis (20 sources) Chronic superficial gastritis; Translations: [Chronic superficial gastritis without bleeding] Onset: 3 08-09-2023 Chronic Gastrointestinal hemorrhage (1 source) Black feces; Translations: [Melena] 06-15-2024 Episodic Genitourinary symptoms and ill-defined conditions (2 sources) Urine screening abnormal; Translations: [Unspecified abnormal findings in urine] Episodic Headache; including migraine (20 sources) Migraine; Translations: [Migraine, unspecified, not intractable, without status migrainosus] Onset: 2 01-11-2012 Chronic Headache; including migraine (8 sources) Daily headache; Translations: [Daily headache] 05-20-2023 Episodic Immunizations and screening for infectious disease (1 source) Viral screening status; Translations: [Encounter for screening for other viral diseases] Episodic Intestinal infection (2 sources) Viral gastroenteritis; Translations: [Viral intestinal infection, unspecified] 03-29-2025 Episodic Nonspecific chest pain (2 sources) Chest pain; Translations: [Chest pain, unspecified] 10-09-2016 Episodic Other connective tissue disease (1 source) Pain of bilateral hands; Translations: [Pain in right hand] 08-23-2020 Episodic Other connective tissue disease (1 source) Triggering of digit; Translations: [Trigger finger, left middle finger] 08-23-2020 Episodic Other connective tissue disease (2 sources) Foreign body; Translations: [Residual foreign body in soft tissue] 07-07-2023 Episodic Other connective tissue disease (1 source) Thigh pain; Translations: [Pain in left thigh] 07-07-2025 Episodic Other connective tissue disease (1 source) Pain in left lower limb; Translations: [Pain in left leg] 07-07-2025 Episodic Other connective tissue disease (1 source) Pain in left leg; Translations: [Pain of left lower extremity] Onset: 5 Episodic Other connective tissue disease (1 source) Pain in left thigh; Translations: [Pain in left thigh] Onset: 5 Episodic Other diseases of kidney and ureters (2 sources) Acute renal insufficiency; Translations: [Disorder of kidney and ureter, unspecified] 04-17-2021 Episodic Other gastrointestinal disorders (6 sources) Heartburn; Translations: [Heartburn] Episodic Other injuries and conditions due to external causes (1 source) Motion sickness; Translations: [Motion sickness, subsequent encounter] 05-20-2023 Episodic Other injuries and conditions due to external causes (2 sources) Heat cramp; Translations: [Heat cramp, initial encounter] 04-17-2021 Episodic Other injuries and conditions due to external causes (2 sources) Heat exhaustion co-occurrent and due to anhidrosis; Translations: [Heat exhaustion, anhydrotic, initial encounter] 04-17-2021 Episodic Other injuries and conditions due to external causes (1 source) Muscle strain; Translations: [Other injury of unspecified body region, initial encounter] 07-07-2025 Episodic Other lower respiratory disease (2 sources) Rib pain; Translations: [Pleurodynia] Episodic Other lower respiratory disease (2 sources) Cough; Translations: [Acute cough] 10-06-2024 Episodic Other lower respiratory disease (2 sources) Cough; Translations: [Subacute cough] 01-04-2025 Episodic Other nervous system disorders (20 sources) Carpal tunnel syndrome; Translations: [Carpal tunnel syndrome, unspecified upper limb] Onset: 2 01-11-2012 Chronic Other nutritional; endocrine; and metabolic disorders (1 source) Hypercalcemia; Translations: [Hypercalcemia] 06-16-2024 Chronic Other screening for suspected conditions (not mental disorders or infectious disease) (10 sources) Patient encounter status; Translations: [Encounter for screening mammogram for malignant neoplasm of breast] Episodic Other upper respiratory infections (1 source) Chronic sinusitis, unspecified; Translations: [Unspecified sinusitis (chronic)] 08-24-2023 Chronic Other upper respiratory infections (3 sources) Upper respiratory infection; Translations: [Acute upper respiratory infection, unspecified] Episodic Pulmonary heart disease (4 sources) H/O: pulmonary embolus; Translations: [Personal history of pulmonary embolism] Onset: 5 10-09-2016 Episodic Residual codes; unclassified (1 source) Flushing; Translations: [Flushing] 05-20-2023 Episodic Residual codes; unclassified (1 source) Left before being seen; Translations: [Procedure and treatment not carried out due to patient leaving prior to being seen by health care provider] 09-18-2024 Episodic Screening and history of mental health and substance abuse codes (1 source) Encounter for screening for depression; Translations: [Screening for depression] Onset: Episodic Spondylosis; intervertebral disc disorders; other back problems (2 sources) Acute thoracic back pain; Translations: [Pain in thoracic spine] Episodic Superficial injury; contusion (4 sources) Contusion of right foot, initial encounter; Translations: [Splinter in foot] Onset: 7 07-07-2023 Episodic Unclassified (2 sources) Other and unspecified overexertion or strenuous movements or postures, initial encounter; Translations: [Other and unspecified ovrexrtn or strnous move/pstr, init] Onset: 7 Unclassified (1 source) Subacute cough; Translations: [Subacute cough] Onset: 5 Unclassified (1 source) Acute cough; Translations: [Acute cough] Onset: 4 Viral infection (1 source) Disease caused by 2019-nCoV; Translations: [COVID-19] 09-14-2024 Episodic Past or Other Problems Problem Classification Problem Date Documented Da te Episodic/Chronic Abdominal hernia (20 sources) Hiatal hernia; Translations: [Diaphragmatic hernia without obstruction or gangrene] Onset: 01-11-2012 01-11-2012 Episodic Abdominal pain (20 sources) Epigastric pain; Translations: [Epigastric pain] Onset: 10-29-2018 10-29-2018 Episodic Acute bronchitis (2 sources) Acute bronchitis; Translations: [Acute bronchitis, unspecified] Onset: 01-07-2025 01-07-2025 Episodic Cardiac dysrhythmias (20 sources) Palpitations; Translations: [Palpitations] Onset: 01-11-2012 01-11-2012 Episodic Nausea and vomiting (7 sources) Nausea; Translations: [Nausea] Onset: 04-02-2025 Episodic Nonmalignant breast conditions (20 sources) Galactorrhea not associated with childbirth; Translations: [Galactorrhea not associated with childbirth] Onset: 07-07-2010 Resolved: 09-30-2018 09-30-2018 Episodic Other circulatory disease (20 sources) Feeling of lump in throat; Translations: [Other specified symptoms and signs involving the circulatory and respiratory systems] Onset: 10-29-2018 10-29-2018 Episodic Other gastrointestinal disorders (20 sources) Esophageal dysphagia; Translations: [Other dysphagia] Onset: 10-29-2018 10-29-2018 Episodic Other non-traumatic joint disorders (2 sources) Pain in left wrist; Translations: [Pain in left wrist] Onset: 06-04-2017 Episodic Other non-traumatic joint disorders (20 sources) Pain in right knee; Translations: [Pain in joint, lower leg] Onset: 12-07-2022 Episodic Residual codes; unclassified (1 source) Procedure and treatment not carried out due to patient leaving prior to being seen by health care provider; Translations: [Patient left without being seen] Onset: 09-18-2024 Episodic Sprains and strains (20 sources) Unspecified sprain of left wrist, initial encounter; Translations: [Injury of upper extremity] Onset: 06-15-2014 06-15-2014 Episodic Unclassified (2 sources) Acquired absence of both cervix and uterus; Translations: [Acquired absence of both cervix and uterus] Onset: 06-04-2017 Episodic Results Test Name Value Interpretation Reference Range Facility [facility] 07-07-2025 CNOV Office Visit (FAMPWS ) ----- ALLENESTUARDO Smith ([id number]) 1970 F Date Time Provider Department 07/07/25 4:00 PM JUSTUS MCDONALD [facility] During your visit today, we recorded the following information about you: Pulse Blood pressure Weight 75/minute 144/75 68.9 kg Justus Mcdonald MD 07/07/2025 5:44 PM Signed The patient is a 54-year-old female with factor V Leiden mutation and prior pulmonary embolism, presenting for evaluation of one week of right leg pain. HPI Left Leg Pain: - Aching pain in the left leg, localized to the anterior thigh, x1 week. - Pain radiates from the thigh to the knee; Estuardo denies pain in the calf or behind the knee. - Describes pain as aching and sharp at times. - Aggravated by palpation and movement. - Denies numbness or tingling. - No known trauma or injury. - Unaure if redness or swelling; unsure about warmth. - Recent travel to Estuardo's son's house, approximately 1.5 hours away, a few weeks ago. - Denies recent long-distance travel or prolonged immobility. Factor V Leiden: - Diagnosed with Factor V Leiden. - History of PE 30 years ago. - Estuardo denies current dyspnea or chest pain. Medication Management: - Currently taking Topamax, fluoxetine, and Crestor. MEDICATIONS: Current Outpatient Medications Medication Sig pantoprazole DR (PROTONIX) 40 mg tablet Take 1 tablet by mouth once daily. hydrOXYzine HCl (ATARAX) 10 mg tablet Take 1-2 tablets by mouth three times a day as needed. topiramate (TOPAMAX) 100 mg tablet take 1 tablet by mouth IN THE MORNING and 1 tablet AT NIGHT FLUoxetine (PROZAC) 40 mg capsule Take 1 capsule by mouth once daily. rosuvastatin (CRESTOR) 5 mg tablet Take 1 tablet by mouth once daily. ezetimibe (ZETIA) 10 mg tablet Take 1 tablet by mouth once daily. rimegepant (NURTEC ODT) 75 mg disintegrating tablet Take one tablet every other day No current facility-administered medications for this visit. ALLERGIES: ALLERGIES Allergen Reactions Aleve [Naproxen Sod* GI Upset Bactrim [Sulfametho* Intolerance dizziness and upset stomach Latex Rash Lipitor [Atorvastat* Intolerance Elevated Liver enzymes Penicillins Unknown Tape [Adhesive Tape* Rash Tylenol [Acetaminop* Other: See Comments Nausea Vicodin [Hydrocodon* Vomiting PAST MEDICAL HISTORY Diagnosis Date Anxiety state, unspecified Blood dyscrasia Carpal tunnel syndrome Factor V Leiden (HCC) Galactorrhea not associated with childbirth 2006 Hiatal hernia 04/13/2003 EGDCarey Lundy History of 1987,1989,1993 Iron deficiency anemia, unspecified Mental disorder Migraine, unspecified, without mention of intractable migraine without mention of status migrainosus Other pulmonary embolism and infarction 1987 Pulmonary embolism AND factor 5 Leiden PAST SURGICAL HISTORY Procedure Laterality Date DELIVERY ONLY 1987,1989,1993 , low transverse EGD 11/24/2020 ESOPHAGOGASTRODUODENOSCOP Y TRANSORAL DIAGNOSTIC 04/13/[address] [facility] Dr. Lundy ESOPHAGOGASTRODUODENOSCOP Y TRANSORAL DIAGNOSTIC 12/08/2018 EGD HYSTERECTOMY HX 2005 left ovaries INCISE FINGER TENDON SHEATH Left 01/11/2021 Left middle trigger finger release GUERIN W/O FACETEC FORAMOT/DSC 1/2 VRT SGM CRV 2006 Laminectomy, cervical and titianium placed NECK SURGERY HX SKIN BIOPSY HX VAGINAL HYSTERECTOMY FAMILY HISTORY Problem Relation Age of Onset Diabetes Mother Headache Mother Hypertension Mother Heart Father 3 NE's, age 52 Cancer Maternal Grandmother Uterine Blood Disease Brother Leiden factor 5, Blood Disease Other Brother's son, Leiden Factor 5 SOCIAL HISTORY[1] Reviewed current medications, allergies, past medical history, surgical history, family history and social history today. REVIEW OF SYSTEMS Cardiovascular: (-) chest pain Respiratory: (-) shortness of breath Musculoskeletal: (+) leg aching pain from thigh to knee, (+) thigh tenderness to touch, (+) calf tenderness to touch, (+) leg pain with movement, (+) sharp thigh pain with walking, (-) leg swelling Neurological: (-) numbness, (-) tingling HEALTH MAINTENANCE: Reviewed health maintenance issues today and recommended the following in detail. Pneumococcal Vaccine: 50+(1 of 1 - PCV) Never done Mammogram Screening due on 02/23/2024 Colorectal Cancer Screening due on 06/16/2025 LAB REVIEWED: VITALS: BP 144/75 Pulse 75 Wt 68.9 kg (152 lb) SpO2 98% BMI 26.27 kg/m? Last 4 Encounter Wt Readings: Date: Wt: 07/07/2025 68.9 kg (152 lb) 05/11/2025 68.5 kg (151 lb) 01/07/2025 70.3 kg (155 lb) 01/04/2025 69.8 kg (153 lb 14.1 oz) PHYSICAL EXAMINATION: GENERAL: NAD, alert and oriented. SKIN: Unremarkable, no rash or skin lesions. HEAD: Normocephalic. EXTREMITIES: Left thigh tender to palpation, mild puffiness noted in the anterior thigh compared to the right side. (more content not included)... Normal [facility] Emergency Department Summary on 07-07-2025 Emergency Department Summary [facility] Medical Records Department [address] [place] [address] Emergency Department Summary 07/07/25 MR#: [id number] Acct: [id number] Name: ESTUARDO VILLA Rep #: [id number] : 1970 54 From: Fausto Brar PCP: Dr. Justus Mcdonald MD Status:REG ER Location: ED HPI History of Present Illness Chief Complaint: Lower Extremity Injury Informant: patient Narrative Narrative: Sent in by PCP 1 week history left upper thigh pain more laterally. Sent here for DVT rule out. Denies trauma denies any increase strenuous activities. She had a PE with factor V Leiden secondary to surgical history years ago. No chest pains no shortness of breath. [facility] Medical History Hypercholesteremia Factor 5 Leiden mutation, heterozygous Hyperlipidemia Anxiety Home Medications ???Medication ???Instructions ???Recorded ???Last Taken ???Type pantoprazole 40 mg tablet,delayed 40 mg PO DAILY #30 tabs 10/10/16 Unknown Rx release pravastatin 20 mg tablet 20 mg PO DAILY 09/29/20 Unknown Hi story dicyclomine 10 mg capsule 10 mg PO BID PRN abdominal pain Unknown Rx #14 caps fluoxetine 20 mg capsule 20 mg PO DAILY 05/15/21 Unknown Hi story ondansetron 4 mg disintegrating 4 mg PO Q8H PRN nausea and 1 Unknown Rx tablet vomiting #10 tabs doxycycline monohydrate 100 mg 100 mg PO BID #20 CAPSULES 3 Unknown Rx capsule ondansetron 4 mg disintegrating 4 mg PO Q6H PRN nausea and 5 Unknown Rx tablet vomiting #7 tabs ezetimibe 10 mg tablet 10 mg PO DAILY 07/07/25 Unknown Hi story fluoxetine 40 mg capsule 40 mg PO DAILY 07/07/25 Unknown Hi story hydroxyzine HCl 10 mg tablet 10 - 20 mg PO TID PRN PRN anxiety 07/07/25 Unknown History rimegepant 75 mg disintegrating 75 mg PO QODAY 07/07/25 Unknown Hi story tablet (Nurtec ODT) rosuvastatin 5 mg tablet 5 mg PO DAILY 07/07/25 Unknown His tory topiramate 100 mg tablet 100 mg PO BID 07/07/25 Unknown His tory Allergy/AdvReac Type Severity Reaction Status Date / Time latex Allergy Rash Verified 07/07/25 16:50 Penicillins Allergy Other Verified 07/07/25 16:50 acetaminophen (From Tylenol) AdvReac Nausea Verified 07/07/25 16:50 naproxen (From Aleve) AdvReac Nausea/Vom/ Verified 07/07/25 16:50 Diarrhea Family History Mother Diabetes Heart disease Grandmother Cervical cancer Surgical History H/O neck surgery S/P S/P hysterectomy Social History Smoking Status: Never smoker alcohol intake: current alcohol intake frequency: holidays/special occasions only substance use type: does not use caffeine: Yes what type of physical activity do you participate in: none seatbelt use: sometimes do you feel safe at home: Yes 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 [employer] ROS ED Constitutional Constitutional ED: Denies fever(s) Cardiovascular Cardiovascular: Denies chest pain Respiratory/Chest Respiratory/Chest: Denies cough Gastrointestinal Gastrointestinal: Denies diarrhea or vomiting Musculoskeletal Musculoskeletal: Reports other Details: Left thigh pain Integumentary Denies rash or wounds Neurologic Neurologic: Denies weakness EXAM Physical Exam Const Vital Signs: 07/07/25 16:48 Temperature 98.0 F Temperature Source Oral Pulse Rate 73 Respiratory Rate 16 Blood Pressure 171/92 H Blood Pressure Mean 118 Pulse Ox 100 Oxygen Delivery Method Room Air Positive well nourished and well developed General Appearance ED: well developed HEENT normocephalic and atraumatic Eyes General Eye ED: Yes normal appearance of both eyes Neck full ROM Resp normal respiratory effort and normal air movement Cardio regular rate and regular rhythm GI soft to palpation Extremity full ROM Extremity Narrative: Left lower extremity: No medial thigh tenderness no calf tenderness. There is tenderness lateral upper thigh. Soft compartments. Pulses intact distally. Neuro oriented x3 Skin no rashes or lesions noted and no wounds MDM MDM MDM Narrative Medical decision making narrative: Interventions / MDM: Differential diagnosis: Left thigh pain, muscle strain Diagnosis considered but do not suspect: N/A My EKG interpretation: N/A Imaging independently reviewed and interpreted by myself: Ultrasound left lower extremity: Negative for DVT. External documents reviewed: N/A Test considered but not ordered:N/A ED course: Patient left thigh pain more laterally. Sent in by PCP for ultrasound. Low suspicion for DVT. N (more content not included)... Normal [facility] Venous Duplex Imag/Limited/U nion 07-07-2025 Venous Duplex Imag/Limited/Uni [facility] Imaging Services [address] [place] [address] Venous Duplex Imag/Limited/Uni MR#: [id number] Acct: [id number] Name: ESTUARDO VILLA Rep #: [id number] : 1970 F 54 From: Tonio Caruso MD PCP: Dr. Justus Mcdonald MD Status: REG ER Study: Venous Duplex Imag/Limited/Uni Date of Exam: 0 07/07/25 Exam# [id number] Ordering Dr: Fausto Johnston DO PROCEDURE: LEFT LOWER EXTREMITY VENOUS DUPLEX IMAG/LIMITED/UNI 07/07/2025 REASON FOR EXAM: Left leg pain TECHNIQUE: Left lower extremity venous Doppler ultrasound. COMPARISON: None. FINDINGS: No intraluminal echogenicity to suggest the presence of a deep venous thrombosis. Appropriate respiratory variation, augmentation and venous compression is noted. US/Venous Duplex Imag/Limited/Uni IMPRESSION: No evidence for DVT in the left lower extremity. Reading Location: [id number] CC: Dr. Fausto Johnston DO; Dr. Justus Mcdonald MD Communications Attendant: Signed Normal [facility] [employer] 5 [place] IgE Qn (S) <0.35 Normal <0.35 [facility] Comment on above: Order Comment: Speci men Type: BLOOD SPECIMENOrdering Facility: [facility] Address: [address] [place] [address] Performed By: #### F OODS ####[facility] LABCLIA [id number] [place] [address] [place] IgE RAST class (S) Normal [facility] Comment on above: Order Comment: Speci men Type: BLOOD SPECIMENOrdering Facility: [facility] Address: [address] [place] [address] Result Comment: Stevie rgen class is no longer reported Performed By: #### F OODS ####[facility] [id number] [facility] [address], [facility] [place] Cow milk IgE Qn (S) <0.35 Normal <0.35 [facility] Comment on above: Order Comment: Speci men Type: BLOOD SPECIMENOrdering Facility: [facility] Address: [address] [place] [address] Performed By: #### F OODS ####[facility]CL[facility] [id number] [facility] [address], [place] [address] [place] Cow milk IgE RAST class (S) Normal [facility] Comment on above: Order Comment: Speci men Type: BLOOD SPECIMENOrdering Facility: [facility] Address: [address] [place] [address] Result Comment: Stevie rgen class is no longer reported Performed By: #### F OODS ####[facility]CL[facility] [id number] [address] STATES OF [facility] Crab IgE Qn (S) <0.35 Normal <0.35 [facility] Comment on above: Order Comment: Speci men Type: BLOOD SPECIMENOrdering Facility: [facility] Address: [address] [place] [address] Performed By: #### F OODS ####[facility]CLIA [id number] [place] [address] [place] Crab IgE RAST class (S) Normal [facility] Comment on above: Order Comment: Speci men Type: BLOOD SPECIMENOrdering Facility: [facility] Address: [address] [place] [address] Result Comment: Stevie rgen class is no longer reported Performed By: #### F OODS ####[facility]CLIA [id number] [address], [facility] [place] Egg white IgE Qn (S) <0.35 Normal <0.35 [facility] Comment on above: Order Comment: Speci men Type: BLOOD SPECIMENOrdering Facility: [facility] Address: [address] [place] [address] Performed By: #### F OODS ####[facility]CLIA [id number] [place] [address] [place] Egg white IgE RAST class (S) Normal [facility] Comment on above: Order Comment: Speci men Type: BLOOD SPECIMENOrdering Facility: [facility] Address: [address] [place] [address] Result Comment: Stevie rgen class is no longer reported Performed By: #### F OODS ####[facility]CLIA [id number] [address] [place] IgE Qn (S) <0.35 Normal <0.35 [facility] Comment on above: Order Comment: Speci men Type: BLOOD SPECIMENOrdering Facility: [facility] Address: [address] [place] [address] Performed By: #### F OODS ####[facility]CLIA [id number] [address] [place] IgE RAST class (S) Normal [facility] Comment on above: Order Comment: Speci men Type: BLOOD SPECIMENOrdering Facility: [facility] Address: [address] [place] [address] Result Comment: Stevie rgen class is no longer reported Performed By: #### F OODS ####[facility] LABCLIA [id number] [place] [id number] [place] Peanut IgE Qn (S) <0.10 Normal <0.10 [facility] Comment on above: Order Comment: Speci men Type: BLOOD SPECIMENOrdering Facility: [facility] Address: [address] [place] [address] Performed By: #### F OODS ####[facility]CLIA [id number] [facility] [address] [place] [address] [place] Peanut IgE RAST class (S) Normal [facility] Comment on above: Order Comment: Speci men Type: BLOOD SPECIMENOrdering Facility: [facility] Address: [address] [place] [address] Result Comment: Stevie rgen class is no longer reported Performed By: #### F OODS ####[facility]CLIA [id number] [facility] [address], [place] [address] [place] Shrimp IgE Qn (S) <0.35 Normal <0.35 [facility] Comment on above: Order Comment: Speci men Type: BLOOD SPECIMENOrdering Facility: [facility] Address: [address] [place] [address] Performed By: #### F OODS ####[facility] LABCLIA [id number] [place] [address] [place] Shrimp IgE RAST class (S) Normal [facility] Comment on above: Order Comment: Speci men Type: BLOOD SPECIMENOrdering Facility: [facility] Address: [address] [place] [address] Result Comment: Stevie rgen class is no longer reported Performed By: #### F OODS ####[facility] LABCLIA [id number] [address], [place] [address] [place] Soybean IgE Qn (S) <0.35 Normal <0.35 [facility] Comment on above: Order Comment: Speci men Type: BLOOD SPECIMENOrdering Facility: [facility] Address: [address] [place] [address] Performed By: #### F OODS ####[facility] LABCLIA [id number] [place] [id number] [place] Soybean IgE RAST class (S) Normal [facility] Comment on above: Order Comment: Speci men Type: BLOOD SPECIMENOrdering Facility: [facility] Address: [address] [place] [address] Result Comment: Stevie rgen class is no longer reported Performed By: #### F OODS ####[facility] LABCLIA [id number] [address], [address] Tuna IgE Qn (S) <0.35 Normal <0.35 [facility] Comment on above: Order Comment: Speci men Type: BLOOD SPECIMENOrdering Facility: [facility] Address: [address] [place] [address] Performed By: #### F OODS ####[facility] LABCLIA [id number] [address], [address] Tuna IgE RAST class (S) Normal [facility] Comment on above: Order Comment: Speci men Type: BLOOD SPECIMENOrdering Facility: [facility] Address: [address] [place] [address] Result Comment: Stevie rgen class is no longer reported Performed By: #### F OODS ####[facility] LABCLIA [id number] [address], [address] Wheat IgE Qn (S) <0.35 Normal <0.35 [facility] Comment on above: Order Comment: Speci men Type: BLOOD SPECIMENOrdering Facility: [facility] Address: [address] [place] [address] Performed By: #### F OODS ####[facility] LABCLIA [id number] [address] [place] [address] [facility] [place] Wheat IgE RAST class (S) Normal [facility] Comment on above: Order Comment: Speci men Type: BLOOD SPECIMENOrdering Facility: [facility] Address: [address] [place] [address] Result Comment: Stevie rgen class is no longer reported Performed By: #### F OODS ####[facility] LABCLIA [id number] [address] OF [place] CNOVon 05-11-2025 CNOV Office Visit (FAMPWS ) ----- ESTUARDO VILLA ([id number]) 1970 F Date Time Provider Department 05/11/25 9:40 AM [facility] During your visit today, we recorded the following information about you: Pulse Blood pressure Weight Height 67/minute 136/82 68.5 kg 1.62 m [place] APRN.CNP 05/11/2025 10:09 AM Signed Chief Reason For Appointment No chief complaint on file. Estuardo Villa is a 54 year old female who presents for annual exam. Last office visit date: 01/07/2025 Accompanied By self only Have you had any critical events, hospital stays, ER visits, surgeries or procedures since your last visit here in our office: Yes [facility]/Other Healthcare Providers Seen: Patient Care Team: Justus Mcdonald MD as PCP - General (Family Medicine) Amber Lenz APRN.CNP as Salon Supervisor (Family Medicine) [place] APRN.CNP as Salon Supervisor (Family Medicine) Concerns today: Anxiety HPI New job Estuardo Villa is a 54-year-old female with a history of anxiety, hyperlipidemia, migraines, and GERD, presenting for a work physical and evaluation of anxiety. Work Physical: - New job at [employer]. - Recent weight loss attributed to dental extractions and dentures. - Denies fever, chills, chest pain, leg swelling, or joint pain/swelling. - Denies chronic diarrhea or constipation. - Denies rashes, itching, excessive thirst, syncope, seizures, or tremors. - Denies hematuria or dysuria. - Denies hopelessness, helplessness, or suicidal ideation. - Denies interest in further COVID-19 vaccinations; completed Hepatitis B series in 2000. - History of neck surgery. - Allergies noted. Anxiety: - Managed with fluoxetine and hydroxyzine PRN. - Reports increased anxiety since divorce in October and mother's passing last year. - Fluoxetine perceived as less effective; noticeable difference if not taken. - Hydroxyzine provides some relief; occasionally requires 3 doses. - Experiences palpitations and dyspnea attributed to anxiety. - Denies interest in medications associated with weight gain. Hyperlipidemia: - Taking pravastatin, but non-adherent due to difficulty remembering nighttime doses. - Family history of hyperlipidemia. - Recent labs show significantly elevated LDL levels. Migraines: - Managed with topiramate, taken once daily in the morning. - Reports decreased frequency of migraines. GERD: - Taking pantoprazole with some relief. - Persistent nausea and upset stomach, even without food intake. - History of EGD in 2019 showing non-severe esophagitis. - Reports sensitivity to certain foods and drinks, leading to avoidance of some medications. Active Problems ACTIVE PROBLEM LIST Chronic Superficial Gastritis Without Bleeding - 08/09/2023 Iron Deficiency Anemia Due to Chronic Blood Loss - 01/29/2023 Acute Pain of Right Knee - 12/07/2022 Esophageal Dysphagia - 10/29/2018 Comment: Added automatically from request for surgery [id number] Globus Sensation - 10/29/2018 Comment: Added automatically from request for surgery [id number] Epigastric Pain - 10/29/2018 Comment: Added automatically from request for surgery [id number] Gastroesophageal Reflux Disease - 10/29/2018 Comment: Added automatically from request for surgery [id number] Sprain and Strain of Unspecified Site of Elbow and Forearm - 06/15/2014 Factor V Leiden (Hcc) Comment: Saw Dr. Cobb. Advised against filler leaf cutter long anticoagulation or asa. No hormones. Needs post operative dvt prophylaxis. Palpitations - 01/11/2012 Hiatal Hernia - 01/11/2012 Carpal Tunnel Syndrome - 01/11/2012 Anxiety - 01/11/2012 Migraine - 01/11/2012 Hyperlipidemia - 12/10/2011 ROS: Constitutional: (+) weight loss, (-) fever, (-) chills Head: (+) headaches Ears/Nose/Mouth/Throat: (+) nasal congestion, (+) oral pain Neck: (-) neck swelling Cardiovascular: (+) palpitations, (-) chest pain, (-) peripheral edema Respiratory: (+) dyspnea, (-) orthopnea Gastrointestinal: (+) nausea, (+) abdominal discomfort, (+) heartburn, (-) diarrhea, (-) constipation Genitourinary: (-) dysuria, (-) hematuria Musculoskeletal: (-) joint pain, (-) joint swelling Skin: (-) rash, (-) pruritus Neurological: (-) syncope, (-) seizures, (-) tremors Psychiatric: (+) anxiety Endocrine: (-) polydipsia PAST MEDICAL HISTORY Diagnosis Date Anxiety state, unspecified Blood dyscrasia Carpal tunnel syndrome Factor V Leiden (HCC) Galactorrhea not associated with childbirth 2006 Hiatal hernia 04/13/2003 EGD- [facility] History of 1987,1989,1993 Iron deficiency anemia, unspecified Mental disorder Migraine, unspecified, without mention of intractable migraine without mention of status migrainosus Other pulmonary embolism and infarction 1987 Pulmonary embolism AND factor 5 Leiden PAST SURGICAL HISTORY Procedure Lat (more content not included)... Normal [facility] Abdomen/Pelvis W IV Cont ONL Yon 03-29-2025 Abdomen/Pelvis W IV Cont ONLY [facility] [address] [place] [address] [id number] Abdomen/Pelvis W IV Cont ONLY MR#: [id number] Acct: [id number] Name: ESTUARDO VILLA Rep #: [id number] : 1970 F 54 From: Juanjose Birch MD PCP: Dr. Justus Mcdonald MD Status: REG ER Study: Abdomen/Pelvis W IV Cont ONLY Date of Exam: Exam# [id number] Ordering Dr: Mango Leone MD PROCEDURE: ABDOMEN/PELVIS W IV CONT ONLY 03/29/2025 REASON FOR EXAM: ABD PAIN W/ VOMITING TECHNIQUE: Abdomen and pelvis CT with intravenous contrast. Coronal and Sagittal reconstruction series were provided. PATIENT PREPARATION: Per protocol CONTRAST: 85 mL Isovue 370 One or more dose reduction techniques were used (e.g., Automated exposure control, adjustment of the mA and/or kV according to patient size, use of iterative reconstruction technique. RADIATION DOSE SUMMARY: CTDlvol: 13.8 mGy DLP: 685 mGycm COMPARISON: None FINDINGS: Lung bases: Unremarkable. Liver: There are hypodense lesions measuring 1.3 cm at the left hepatic dome (series 2, image 16) and 0.9 cm at the right hepatic dome (image 18). Gallbladder: Unremarkable Spleen: Normal size. Pancreas: Normal size without evidence of mass surrounding inflammation or ductal dilation. Adrenals: Unremarkable Kidneys: No hydronephrosis or stone. Bladder: Unremarkable Reproductive Organs: Prior hysterectomy. Adnexal regions are unremarkable. Bowel: No obstruction or inflammation. Normal appendix. Lymph nodes: Mild stranding with subcentimeter lymph nodes present in the left mid abdominal mesentery. Vasculature: Unremarkable Bones: Unremarkable CT/Abdomen/Pelvis W IV Cont ONLY IMPRESSION: 1. No definite evidence for an acute intra-abdominal abnormality. 2. Mild stranding with subcentimeter lymph nodes present in the abdominal mesentery, nonspecific finding with differential including mesenteric panniculitis amongst other etiologies. 3. Hypodense lesions at the hepatic dome measuring up to 1.3 cm. Consider liver MRI per ACR white paper guidelines, particularly if patient has risk factors for hepatic malignancy. Reading Location: [facility] CC: Dr. Mango Leone MD; Dr. Justus Mcdonald MD Communications Attendant: Signed Normal [facility] Absolute lymphocyte countOrd ered By: Mango Leone on 03-29-2025 Lymphocytes Auto (Unsp spec) [#/Vol] 0.87 10*3/uL 0.83-4.51 [facility] Absolute neutrophil countOrd ered By: Mango Leone on 03-29-2025 Neutrophils (Bld) [#/Vol] 9.8 10*3/uL High 2.0-7.7 [facility] Anion gap in Serum or Plasma Ordered By: Mango Leone on 03-29-2025 Anion gap [Moles/Vol] 14 mmol/L 5-15 [facility] Automated lymphocyte count a s percentage of total leukocytesOrdered By: Mango Leone on 03-29-2025 Lymphocytes/100 WBC Auto (Unsp spec) 7.4 % Low 19-41 [facility] BUN/creatinine ratioOrdered By: Mango Leone on 03-29-2025 Urea nitrogen/Creatinine [Mass ratio] 24.9 mg/mg High 10-20 [facility] Basophil percentageOrdered B y: Mango Leone on 03-29-2025 Basophils/100 WBC (Bld) 0.4 % 0-1 [facility] Bilirubin, totalOrdered By: Mango Leone on 03-29-2025 Bilirubin [Mass/Vol] 0.43 mg/dL 0.00-1.30 [facility] CBC W/Diff, Automatedon 03-11 Absolute Lymph 0.87 X10 3/uL Normal 0.83-4.51 [facility] Comment on above: Performed By: #### L 500.4050, L100.0100, L501.2450 #### [facility] [address] [place], [address] Absolute Neut 9.8 X10 3/uL High 2.0-7.7 [facility] Comment on above: Performed By: #### L 500.4050, L100.0100, L501.2450 #### [facility] [address] [place], [address] Basophils/100 WBC (Bld) 0.4 % Normal 0-1 [facility] Comment on above: Performed By: #### L 500.4050, L100.0100, L501.2450 #### [facility] [address] [place], [address] Eosinophils/100 WBC (Bld) 2.2 % Normal 0-5 [facility] Comment on above: Performed By: #### L 500.4050, L100.0100, L501.2450 #### [facility] [address] [place], [address] Erythrocyte distribution width (RBC) [Ratio] 13.2 % Normal 11.6-14.6 [facility] Comment on above: Performed By: #### L 500.4050, L100.0100, L501.2450 #### [facility] [address] [place], [address] Hematocrit (Bld) [Volume fraction] 50.0 % High 37-47 [facility] Comment on above: Performed By: #### L 500.4050, L100.0100, L501.2450 #### [facility] [address] [place], [address] Hemoglobin (Bld) [Mass/Vol] 16.8 g/dL High 12.0-15.0 [facility] Comment on above: Performed By: #### L 500.4050, L100.0100, L501.2450 #### [facility] [address] [place], [address] IG% 0.500 Normal 0.0-0.9 [facility] Comment on above: Result Comment: IG% - Immature Granulocytes (promyelocytes, myelocytes and metamyelocytes) > 1% indicates that a LEFT SHIFT is Present. Performed By: #### L 500.4050, L100.0100, L501.2450 #### [facility] [address] [place], [address] Lymphocytes/100 WBC (Bld) 7.4 % Low 19-41 [facility] Comment on above: Performed By: #### L 500.4050, L100.0100, L501.2450 #### [facility] [address] [place], [address] MCH (RBC) [Entitic mass] 29.8 pg Normal 27.0-32.0 [facility] Comment on above: Performed By: #### L 500.4050, L100.0100, L501.2450 #### [facility] [address] [place], [address] MCHC (RBC) [Mass/Vol] 33.6 g/dL Normal 32-36 [facility] Comment on above: Performed By: #### L 500.4050, L100.0100, L501.2450 #### [facility] [address] [place], [address] MCV (RBC) [Entitic vol] 88.8 fL Normal 81-99 [facility] Comment on above: Performed By: #### L 500.4050, L100.0100, L501.2450 #### [facility] [address] [place], [address] Monocytes/100 WBC (Bld) 6.0 % Normal 0-10 [facility] Comment on above: Performed By: #### L 500.4050, L100.0100, L501.2450 #### [facility] [address] [place], [address] Neutrophils/100 WBC (Bld) 83.5 % High 47-70 [facility] Comment on above: Performed By: #### L 500.4050, L100.0100, L501.2450 #### [facility] [address] [place], [address] Nucleated RBC (Bld) [#/Vol] 0 10*3/uL Normal 0-5 [facility] Comment on above: Performed By: #### L 500.4050, L100.0100, L501.2450 #### [facility] [address] [place], [address] Platelet mean volume (Bld) [Entitic vol] 11.1 fL Normal 6.2-12.0 [facility] Comment on above: Performed By: #### L 500.4050, L100.0100, L501.2450 #### [facility] [address] [place], [address] Platelets (Bld) [#/Vol] 244 10*3/uL Normal 150-450 [facility] Comment on above: Performed By: #### L 500.4050, L100.0100, L501.2450 #### [facility] [address] [place], [address] RBC (Bld) [#/Vol] 5.63 10*6/uL High 4.2-5.4 [facility] Comment on above: Performed By: #### L 500.4050, L100.0100, L501.2450 #### [facility] [address] [place], [address] RDW SD 43.1 fl Normal 35.1-43.9 [facility] Comment on above: Performed By: #### L 500.4050, L100.0100, L501.2450 #### [facility] [address] [place], [address] WBC (Bld) [#/Vol] 11.7 10*3/uL High 4.4-11.0 [facility] Comment on above: Performed By: #### L 500.4050, L100.0100, L501.2450 #### [facility] [address] [place], [address] Carbon dioxide, total [Moles /volume] in Central venous bloodOrdered By: Mango Leone on 03-29-2025 CO2 [Moles/Vol] 19.8 mmol/L Low 21.0-32.0 [facility] Chloride assayOrdered By: Darian Leone on 03-29-2025 Chloride [Moles/Vol] 105 mmol/L 98-108 [facility] Comprehensive Metabolic Prof ilon 03-29-2025 Albumin [Mass/Vol] 4.7 g/dL Normal 3.5-5.0 [facility] Comment on above: Performed By: #### L 500.4050, L100.0100, L501.2450 #### [facility] [address] [place], [address] Albumin/Globulin [Mass ratio] 1.5 {ratio} Normal 0.9-2.4 [facility] Comment on above: Performed By: #### L 500.4050, L100.0100, L501.2450 #### [facility] [address] [place], [address] ALK PHOS 93 U/L Normal 35-104 [facility] Comment on above: Performed By: #### L 500.4050, L100.0100, L501.2450 #### [facility] [address] [place], [address] ALT [Catalytic activity/Vol] 54 U/L High <=34 [facility] Comment on above: Performed By: #### L 500.4050, L100.0100, L501.2450 #### [facility] [address] [place], [address] AST [Catalytic activity/Vol] 31 U/L Normal <=31 [facility] Comment on above: Performed By: #### L 500.4050, L100.0100, L501.2450 #### [facility] [address] [place], [address] Bilirubin [Mass/Vol] 0.43 mg/dL Normal 0.00-1.30 [facility] Comment on above: Performed By: #### L 500.4050, L100.0100, L501.2450 #### [facility] [address] [place], [address] BUN/CRE 24.9 RATIO High 10-20 [facility] Comment on above: Performed By: #### L 500.4050, L100.0100, L501.2450 #### [facility] [address] [place], [address] Calcium [Mass/Vol] 9.9 mg/dL Normal 7.6-11.0 [facility] Comment on above: Performed By: #### L 500.4050, L100.0100, L501.2450 #### [facility] [address] [place], [address] Chloride [Moles/Vol] 105 mmol/L Normal 98-108 [facility] Comment on above: Performed By: #### L 500.4050, L100.0100, L501.2450 #### [facility] [address] [place], [address] CO2 [Moles/Vol] 19.8 mmol/L Low 21.0-32.0 [facility] Comment on above: Performed By: #### L 500.4050, L100.0100, L501.2450 #### [facility] [address] [place], [address] Creatinine [Mass/Vol] 0.93 mg/dL Normal 0.70-1.20 [facility] Comment on above: Performed By: #### L 500.4050, L100.0100, L501.2450 #### [facility] [address] [place], [address] ECRCL 66.13 ml/min Normal 50-250 [facility] Comment on above: Performed By: #### L 500.4050, L100.0100, L501.2450 #### [facility] [address] [place], [address] GAP 14 Normal 5-15 [facility] Comment on above: Performed By: #### L 500.4050, L100.0100, L501.2450 #### [facility] [address] [place], [address] GFR/1.73 sq M.predicted among non-blacks MDRD (S/P/Bld) [Vol rate/Area] 73 mL/min/{1.73_m2} Normal >60 [facility] Comment on above: Result Comment: mL/m in/1.73m2 CKD-EPI Creatinine Equation (2020) Performed By: #### L 500.4050, L100.0100, L501.2450 #### [facility] [address] [place], [address] Globulin (S) [Mass/Vol] 3.2 g/dL Normal 2.2-4.2 [facility] Comment on above: Performed By: #### L 500.4050, L100.0100, L501.2450 #### [facility] [address] [place], [address] Glucose [Mass/Vol] 106 mg/dL High 70-99 [facility] Comment on above: Performed By: #### L 500.4050, L100.0100, L501.2450 #### [facility] [address] [place], [address] Potassium [Moles/Vol] 4.4 mmol/L Normal 3.3-5.1 [facility] Comment on above: Performed By: #### L 500.4050, L100.0100, L501.2450 #### [facility] [address] [place], [address] Sodium [Moles/Vol] 138 mmol/L Normal 133-145 [facility] Comment on above: Performed By: #### L 500.4050, L100.0100, L501.2450 #### [facility] [address] [place], [address] T PROT 7.9 g/dL Normal 5.9-8.4 [facility] Comment on above: Performed By: #### L 500.4050, L100.0100, L501.2450 #### [facility] [address] [place], [address] Urea nitrogen [Mass/Vol] 23 mg/dL High 4-19 [facility] Comment on above: Performed By: #### L 500.4050, L100.0100, L501.2450 #### [facility] [address] [place], [address] Emergency Department Summary on 03-29-2025 Emergency Department Summary [facility] Medical Records Department [address] [place] [address] Emergency Department Summary 03/29/25 MR#: [id number] Acct: [id number] Name: ESTUARDO VILLA Rep #: [id number] : 1970 54 From: Mango Leone MD PCP: Dr. Justus Mcdonald MD Status:REG ER Location: ED HPI HPI - GI History of Present Illness Chief Complaint: Nausea/Vomiting Informant: patient and family Abdominal Pain/Flank Pain Onset: Today Context: Gradual Onset Timing: Continuous Quality: Aching and Cramping Location: Epigastric Current Severity: Moderate Maximum Severity: Moderate Nausea/Vomiting/Emesis GI Symptom: Positive for Nausea and Vomiting Onset: Today Severity: Moderate Episodes: 10 Diarrhea/Melena/Hematoche shamir GI Symptom: Positive for Diarrhea; Negative for Melena or Hematochezia Onset: Today Stool Quality: Positive for Watery Severity: Moderate Associated Symptoms Associated Symptoms: Negative for Dysuria, Frequency, Hematuria or Urgency Narrative Narrative: 54-year-old female history of factor V mutation prior PE only abdominal surgery was partial hysterectomy. Patient states that she had all her teeth pulled last week by an oral surgeon. She has been on clindamycin. Today they saw her. Her treating her for dry socket. Since she went home she was doing fine and then started having nausea vomiting. Along with epigastric abdominal pain. Then developed diarrhea. States she is thrown up at least 10 times. No hematemesis. No coffee- ground. No melena or hematochezia. No dysuria. No fever. Said she is never had anything like this before. Does not know anyone particular she has been around has been sick lately. Prior similar symptoms: No Recent Illness/Hospitalization: No [facility] Medical History Hypercholesteremia Factor 5 Leiden mutation, heterozygous Hyperlipidemia Anxiety Home Medications ???Medication ???Instructions ???Recorded ???Last Taken ???Type pantoprazole 40 mg tablet,delayed 40 mg PO DAILY #30 tabs 10/10/16 Unknown Rx release pravastatin 20 mg tablet 20 mg PO DAILY 09/29/20 Unknown Hi story dicyclomine 10 mg capsule 10 mg PO BID PRN abdominal pain Unknown Rx #14 caps fluoxetine 20 mg capsule 20 mg PO DAILY 05/15/21 Unknown Hi story ondansetron 4 mg disintegrating 4 mg PO Q8H PRN nausea and 1 Unknown Rx tablet vomiting #10 tabs doxycycline monohydrate 100 mg 100 mg PO BID #20 CAPSULES 3 Unknown Rx capsule ondansetron 4 mg disintegrating 4 mg PO Q6H PRN nausea and 5 Unknown Rx tablet vomiting #7 tabs Allergy/AdvReac Type Severity Reaction Status Date / Time latex Allergy Rash Verified 03/29/25 20:24 Penicillins Allergy Other Verified 03/29/25 20:24 acetaminophen (From Tylenol) AdvReac Nausea Verified 03/29/25 20:24 naproxen (From Aleve) AdvReac Nausea/Vom/ Verified 03/29/25 20:24 Diarrhea Family History Mother Diabetes Grandmother Cervical cancer Surgical History H/O neck surgery S/P S/P hysterectomy Social History Smoking Status: Never smoker alcohol intake: current alcohol intake frequency: holidays/special occasions only substance use type: does not use caffeine: Yes what type of physical activity do you participate in: none seatbelt use: sometimes do you feel safe at home: Yes 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 [employer] [employer] [employer] ROS ED ROS Narrative Nausea, vomiting, diarrhea and abdominal pain. Constitutional Constitutional ED: Denies chills or fever(s) Cardiovascular Cardiovascular: Denies chest pain Respiratory/Chest Respiratory/Chest: Denies cough Gastrointestinal Gastrointestinal: Reports abdominal pain, diarrhea, nausea and vomiting; Denies constipation or melena Genitourinary Genitourinary ED: Denies dysuria or hematuria Musculoskeletal Musculoskeletal: Denies arthralgias, back pain, myalgias or neck pain Integumentary Denies abscess or Abrasions Neurologic Neurologic: Denies headache(s) Psychiatric Psychiatric: Denies anxiety Endocrine Endocrinology: Denies polydipsia Hematologic/Lymphatic Hematologic/Lymphatic: Denies easy bleeding, easy bruising or lymphadenopathy Allergic/Immunologic Allergic/Immunologic ED: Denies mouth swelling, tongue swelling or urticaria EXAM Physical Exam Narrative Exam Narrative: 54-year-old female sitting upright in bed. Vital signs are stable afebrile. Complaining of abdominal pain. Nauseated. But currently not vomiting. Family at bedside. H EENT exam pupils round react to light. Moist mucous membranes. Lower den (more content not included)... Normal [facility] Eosinophil percentageOrdered By: Mango Leone on 03-29-2025 Eosinophils/100 WBC (Bld) 2.2 % 0-5 [facility] Erythrocyte distribution wid th ratioOrdered By: Mango Leone on 03-29-2025 Erythrocyte distribution width (RBC) [Ratio] 13.2 % 11.6-14.6 [facility] Erythrocyte distribution wid th standard deviationOrdered By: Mango Leone on 03-29-2025 Erythrocyte distribution width (RBC) [Ratio] 43.1 fl 35.1-43.9 [facility] Glomerular filtration rate ( GFR) estimation/1.73 sq m using serum, plasma, or whole bOrdered By: Mango Leone on 03-29-2025 GFR/1.73 sq M.predicted among non-blacks MDRD (S/P/Bld) [Vol rate/Area] 73 mL/min/{1.73_m2} >60 [facility] Comment on above: mL/min/1.73m2 CKD-EP I Creatinine Equation (2020) Hematocrit Auto (Bld) [Volum e fraction]Ordered By: Mango Leone on 03-29-2025 Hematocrit (Bld) [Volume fraction] 50.0 % High 37-47 [facility] Hemoglobin measurementOrdere d By: Mango Leone on 03-29-2025 Hemoglobin (Bld) [Mass/Vol] 16.8 g/dL High 12.0-15.0 [facility] Immature granulocytes/100 WB C Auto (Bld)Ordered By: Mango Leone on 03-29-2025 Immature granulocytes/100 WBC (Bld) 0.500 % 0.0-0.9 [facility] Comment on above: IG% - Immature Granu locytes (promyelocytes, myelocytes and metamyelocytes) > 1% indicates that a LEFT SHIFT is Present. Laboratory - Chemistry and C hemistry - challengeOrdered By: Mango Leone on 03-29-2025 AST [Catalytic activity/Vol] 31 U/L <32 [facility] Lipaseon 03-29-2025 Lipase [Catalytic activity/Vol] 37 U/L Normal 13-75 [facility] Comment on above: Result Comment: Benita acrcamo note: LIPASE revised reference range effective 23. New Lipase methodology. Expected to produce lower values than the previous assay method. NEW Reference Range: 13 - 75 U/L Performed By: #### L 500.4050, L100.0100, L501.2450 #### [facility] [address] [place], [address] Lipase measurementOrdered By : Mango Leone on 03-29-2025 Lipase [Catalytic activity/Vol] 37 U/L 13-75 [facility] Comment on above: Please note:LIPASE r evised reference range effective 23. New Lipase methodology. Expected to produce lower values than the previous assay method. NEW Reference Range: 13 - 75 U/L MCV (mean corpuscular volume ) determinationOrdered By: Mango Leone on 03-29-2025 MCV (RBC) [Entitic vol] 88.8 fL 81-99 [facility] Mean corpuscular hemoglobin (MCH) determinationOrdered By: Mango Leone on 03-29-2025 MCH (RBC) [Entitic mass] 29.8 pg 27.0-32.0 [facility] Mean corpuscular hemoglobin concentration (MCHC) determinationOrdered By: Mango Leone on 03-29-2025 MCHC (RBC) [Mass/Vol] 33.6 g/dL 32-36 [facility] Mean platelet volume determi nationOrdered By: Mango Leone on 03-29-2025 Platelet mean volume (Bld) [Entitic vol] 11.1 fL 6.2-12.0 [facility] Monocyte percentageOrdered B y: Mango Leone on 03-29-2025 Monocytes/100 WBC (Bld) 6.0 % 0-10 [facility] Neutrophil percentageOrdered By: Mango Leone on 03-29-2025 Neutrophils/100 WBC (Bld) 83.5 % High 47-70 [facility] Nucleated red blood cell per centageOrdered By: Mango Leone on 03-29-2025 Nucleated RBC/100 WBC (Bld) [Ratio] 0 % 0-5 [facility] Platelet countOrdered By: Darian Leone on 03-29-2025 Platelets (Bld) [#/Vol] 244 10*3/uL 150-450 [facility] Potassium measurement (mass/ volume)Ordered By: Mango Leone on 03-29-2025 Potassium (Unsp spec) [Mass/Vol] 4.4 mmol/L 3.3-5.1 [facility] RBC Auto (Bld) [#/Vol]Ordere d By: Mango Leone on 03-29-2025 RBC (Bld) [#/Vol] 5.63 10*6/uL High 4.2-5.4 [facility] Serum creatinine measurement (mass/volume)Ordered By: Mango Leone on 03-29-2025 Creatinine [Mass/Vol] 0.93 mg/dL 0.70-1.20 [facility] Serum globulin measurementOr dered By: Mango Leone on 03-29-2025 Globulin (S) [Mass/Vol] 3.2 g/dL 2.2-4.2 [facility] Serum glucose measurement (m ass/volume)Ordered By: Mango Leone on 03-29-2025 Glucose [Mass/Vol] 106 mg/dL High 70-99 [facility] Serum or plasma alanine marin otransferase (ALT) measurementOrdered By: Mango Leone on 03-29-2025 ALT [Catalytic activity/Vol] 54 U/L High <35 [facility] Serum or plasma albumin atif urement (mass/volume)Ordered By: Mango Leone on 03-29-2025 Albumin [Mass/Vol] 4.7 g/dL 3.5-5.0 [facility] Serum or plasma albumin/glob ulin mass ratioOrdered By: Mango Leone on 03-29-2025 Albumin/Globulin [Mass ratio] 1.5 {ratio} 0.9-2.4 [facility] Serum or plasma alkaline coy sphatase measurementOrdered By: Mango Leone on 03-29-2025 ALP [Catalytic activity/Vol] 93 U/L 35-104 [facility] Serum or plasma calcium atif urement (mass/volume)Ordered By: Mango Leone on 03-29-2025 Calcium [Mass/Vol] 9.9 mg/dL 7.6-11.0 [facility] Serum or plasma urea nitroge n measurement (mass/volume)Ordered By: Mango Leone on 03-29-2025 Urea nitrogen [Mass/Vol] 23 mg/dL High - [facility] Sodium levelOrdered By: Mango Leone on 03-29-2025 Sodium [Moles/Vol] 138 mmol/L 133-145 [facility] Total proteinOrdered By: Nawaf Leone on 03-29-2025 Protein [Mass/Vol] 7.9 g/dL 5.9-8.4 [facility] White blood cell (WBC) count Ordered By: Mango Leone on 03-29-2025 WBC (Bld) [#/Vol] 11.7 10*3/uL High 4.4-11.0 [facility] ESTUARDO VILLA ([id number]) 1970 F Date Time Provider Department 03/10/25 [facility] During your visit today, we recorded the following information about you: Jg Box LPN 03/10/2025 10:28 AM Signed Type of form: reasonable accommodation request Form received via walk in When form is completed, Fax form to [phone] Form has been forwarded to Physician Desk: Dr. Mcdonald Patient told PSS her letter didn't work and now she needs form completed. CHANELLE Farias William J, MD 03/10/2025 12:29 PM Signed Jg Forrester LPN 03/10/2025 1:04 PM Signed Faxed as requested. Allergies As of Date: 03/10/2025 Noted Allergy Reaction ALEVE (NAPROXEN SODIUM) 12/07/2011 8 - GI Upset BACTRIM (SULFAMETHOXAZOLE) 02/09/2014 5 - Intolerance Comments: dizziness and upset stomach LATEX 04/23/2019 2 - Rash LIPITOR (ATORVASTATIN CALCIUM) 12/07/2011 5 - Intolerance Comments: Elevated Liver enzymes PENICILLINS 03/08/2015 16 - Unknown TAPE (ADHESIVE TAPE (ROSINS)) 11/21/2012 2 - Rash TYLENOL (ACETAMINOPHEN) 12/24/2016 14 - Other: See Comments Comments: Nausea VICODIN (HYDROCODONE-ACETAMINOPHE *12/07/2011 11 - Vomiting Date Reviewed: 01/07/2025 Reviewed by: Agnieszka Kingsley MA - Fully Assessed Reason for Visit: Forms [913] Prescriptions as of 03/10/2025 - topiramate (TOPAMAX) 100 mg tablet take 1/2 tablet by mouth IN THE MORNING and 1 tablet AT NIGHT - hydrOXYzine HCl (ATARAX) 10 mg tablet Take 1-2 tablets by mouth three times a day as needed. - pravastatin (PRAVACHOL) 20 mg tablet Take 1 tablet by mouth daily at bedtime. - ezetimibe (ZETIA) 10 mg tablet Take 1 tablet by mouth once daily. - pantoprazole DR (PROTONIX) 40 mg tablet Take 1 tablet by mouth once daily. - FLUoxetine (PROZAC) 40 mg capsule Take 1 capsule by mouth once daily. - promethazine (PHENERGAN) 25 mg tablet Take 1 tablet by mouth every 4 hours as needed for nausea/vomiting. - rimegepant (NURTEC ODT) 75 mg disintegrating tablet Take one tablet every other day Problem List As Of Date 03/10/2025 Noted Resolved Galactorrhea not associated with childbirth [N6*07/07/2010 09/30/2018 Mastodynia [N64.4] 07/07/2010 09/30/2018 Lump or mass in breast [N63.0] 07/07/2010 09/30/2018 Hyperlipidemia [E78.5] 12/10/2011 Palpitations [R00.2] 01/11/2012 Hiatal hernia [K44.9] 01/11/2012 Carpal tunnel syndrome [G56.00] 01/11/2012 Anxiety [F41.9] 01/11/2012 Migraine [G43.909] 01/11/2012 Factor V Leiden (HCC) [D68.51] Sprain and strain of unspecified site of elbow *06/15/2014 Esophageal dysphagia [R13.19] 10/29/2018 Globus sensation [R09.A2] 10/29/2018 Epigastric pain [R10.13] 10/29/2018 Gastroesophageal reflux disease [K21.9] 10/29/2018 Acute pain of right knee [M25.561] 12/07/2022 Iron deficiency anemia due to chronic blood los*01/29/2023 Chronic superficial gastritis without bleeding *08/09/2023 Encounter Status:Closed by JG BOX on 03/10/25 Normal [facility] CNCOon 03-09-2025 CNCO Letter Text Normal [facility] CNPNon 03-09-2025 CNPN Telephone (FAMPWS) ----- ESTUARDO VILLA ([id number]) 1970 F Date Time Provider Department 03/09/25 [facility] During your visit today, we recorded the following information about you: Geena Jimenes RN 03/09/2025 11:11 AM Signed Patient call and states that she recently is . Patient is currently renting. The place where she is renting is needing a letter for her doctor stating why she needs to have her 15 year old cat. Patient reports that she suffers from anxiety and her cat helps her through that anxiety. Patient states that if provider is able to write letter she can pick letter up. Please review and advise, STEPHANIE Ibarra William J, MD 03/09/2025 12:44 PM Signed printed Kelly Guidry MA 03/09/2025 2:42 PM Signed Patient informed. Letter taken to medical records for warp picker. Kelly Guidry MA Allergies As of Date: 03/09/2025 Noted Allergy Reaction ALEVE (NAPROXEN SODIUM) 12/07/2011 8 - GI Upset BACTRIM (SULFAMETHOXAZOLE) 02/09/2014 5 - Intolerance Comments: dizziness and upset stomach LATEX 04/23/2019 2 - Rash LIPITOR (ATORVASTATIN CALCIUM) 12/07/2011 5 - Intolerance Comments: Elevated Liver enzymes PENICILLINS 03/08/2015 16 - Unknown TAPE (ADHESIVE TAPE (ROSINS)) 11/21/2012 2 - Rash TYLENOL (ACETAMINOPHEN) 12/24/2016 14 - Other: See Comments Comments: Nausea VICODIN (HYDROCODONE-ACETAMINOPHE *12/07/2011 11 - Vomiting Date Reviewed: 01/07/2025 Reviewed by: Agnieszka Kingsley MA - Fully Assessed Reason for Visit: Letter [264] Prescriptions as of 03/09/2025 - topiramate (TOPAMAX) 100 mg tablet take 1/2 tablet by mouth IN THE MORNING and 1 tablet AT NIGHT - hydrOXYzine HCl (ATARAX) 10 mg tablet Take 1-2 tablets by mouth three times a day as needed. - pravastatin (PRAVACHOL) 20 mg tablet Take 1 tablet by mouth daily at bedtime. - ezetimibe (ZETIA) 10 mg tablet Take 1 tablet by mouth once daily. - pantoprazole DR (PROTONIX) 40 mg tablet Take 1 tablet by mouth once daily. - FLUoxetine (PROZAC) 40 mg capsule Take 1 capsule by mouth once daily. - promethazine (PHENERGAN) 25 mg tablet Take 1 tablet by mouth every 4 hours as needed for nausea/vomiting. - rimegepant (NURTEC ODT) 75 mg disintegrating tablet Take one tablet every other day Problem List As Of Date 03/09/2025 Noted Resolved Galactorrhea not associated with childbirth [N6*07/07/2010 09/30/2018 Mastodynia [N64.4] 07/07/2010 09/30/2018 Lump or mass in breast [N63.0] 07/07/2010 09/30/2018 Hyperlipidemia [E78.5] 12/10/2011 Palpitations [R00.2] 01/11/2012 Hiatal hernia [K44.9] 01/11/2012 Carpal tunnel syndrome [G56.00] 01/11/2012 Anxiety [F41.9] 01/11/2012 Migraine [G43.909] 01/11/2012 Factor V Leiden (HCC) [D68.51] Sprain and strain of unspecified site of elbow *06/15/2014 Esophageal dysphagia [R13.19] 10/29/2018 Globus sensation [R09.A2] 10/29/2018 Epigastric pain [R10.13] 10/29/2018 Gastroesophageal reflux disease [K21.9] 10/29/2018 Acute pain of right knee [M25.561] 12/07/2022 Iron deficiency anemia due to chronic blood los*01/29/2023 Chronic superficial gastritis without bleeding *08/09/2023 Encounter Status:Closed by KELYL GUIDRY on 03/09/25 Normal [facility] CNOVon 01-07-2025 CNOV Office Visit (FAMPWS ) ----- ESTUARDO VILLA ([id number]) 1970 F Date Time Provider Department [facility]/07[facility]25 10[facility] During your visit today, we recorded the following information about you: Temperature Pulse Blood pressure Weight 97.7 degrees 69/minute 128/80 70.3 kg [place] 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 Patient presents with: Cough: Follow up from [facility] care Persistent cough. Sick for 3 weeks. Productive yellow-green at first. Initially chest hurt + Chills then, too + Headache Stuffy sinuses No sore No body aches + tired + nausea + diarrhea PAST MEDICAL HISTORY: PAST MEDICAL HISTORY Diagnosis Date Anxiety state, unspecified Blood dyscrasia Carpal tunnel syndrome Factor V Leiden (HCC) Galactorrhea not associated with childbirth 2006 [facility] of [facility],1989,1993 Iron deficiency anemia, unspecified Mental disorder Migraine, unspecified, without mention of intractable migraine without mention of status migrainosus Other pulmonary embolism and infarction 1987 Pulmonary embolism AND factor 5 Leiden PAST SURGICAL HISTORY Procedure Laterality Date DELIVERY ONLY 1987,1989,1993 , low transverse EGD 11/24/2020 ESOPHAGOGASTRODUODENOSCOP Y TRANSORAL DIAGNOSTIC 04/13/[address] [facility] Dr. Lundy ESOPHAGOGASTRODUODENOSCOP Y TRANSORAL DIAGNOSTIC 12/08/2018 EGD HYSTERECTOMY HX 2005 left ovaries INCISE FINGER TENDON SHEATH Left 01/11/2021 Left middle trigger finger release GUERIN W/O FACETEC FORAMOT/DSC 11/12 VRT SGM CRV 2005 Laminectomy, cervical and titianium placed NECK SURGERY HX SKIN BIOPSY HX VAGINAL HYSTERECTOMY ALLERGIES Aleve [Naproxen Sodium], Bactrim [Sulfamethoxazole], Latex, Lipitor [Atorvastatin Calcium], Penicillins, Tape [Adhesive Tape (Rosins)], Tylenol [Acetaminophen], and Vicodin [Hydrocodone-Acetaminophe n] MEDICATIONS Current Outpatient Medications Medication Sig benzonatate (TESSALON PERLE) 100 mg capsule Take 1 capsule by mouth every 8 hours as needed for cough for up to 15 days. hydrOXYzine HCl (ATARAX) 10 mg tablet Take 1-2 tablets by mouth three times a day as needed. topiramate (TOPAMAX) 100 mg tablet take 1/2 tablet by mouth IN THE MORNING and 1 tablet AT NIGHT pravastatin (PRAVACHOL) 20 mg tablet Take 1 tablet by mouth daily at bedtime. ezetimibe (ZETIA) 10 mg tablet Take 1 tablet by mouth once daily. pantoprazole DR (PROTONIX) 40 mg tablet Take 1 tablet by mouth once daily. FLUoxetine (PROZAC) 40 mg capsule Take 1 capsule by mouth once daily. rimegepant (NURTEC ODT) 75 mg disintegrating tablet Take one tablet every other day promethazine (PHENERGAN) 25 mg tablet Take 1 tablet by mouth every 4 hours as needed for nausea/vomiting. (Patient not taking: Reported on 01/04/2025) No current facility-administered medications for this visit. FAMILY HISTORY Problem Relation Age of Onset Diabetes Mother Headache Mother Hypertension Mother Heart Father 3 NE's, age 52 Cancer Maternal Grandmother Uterine Blood Disease Brother Leiden factor 5, Blood Disease Other Brother's son, Leiden Factor 5 Social History Tobacco Use Smoking status: Never Smokeless tobacco: Never Vaping Use Vaping status: Never Used Substance Use Topics Alcohol use: No Drug use: No EXAM: BP 128/80 Pulse 69 Temp 36.5 ?C (97.7 ?F) (Left Tympanic) Wt 70.3 kg (155 lb) SpO2 98% BMI 27.46 kg/m? PHYSICAL EXAM: Physical Exam Vitals reviewed. Constitutional: Appearance: Normal appearance. HENT: Head: Normocephalic. Right Ear: External ear normal. There is no impacted cerumen. Left Ear: External ear normal. There is no impacted cerumen. Ears: Comments: Right TM bulging Mouth/Throat: Pharynx: No oropharyngeal exudate or posterior oropharyngeal erythema. Cardiovascular: Rate and Rhythm: Normal rate and regular rhythm. Pulses: Normal pulses. Heart sounds: Normal heart sounds. Pulmonary: Effort: Pulmonary effort is normal. Breath sounds: Wheezing present. Comments: RLL wheeze- respiratory + egophony brochial Musculoskeletal: General: Normal range of motion. Comments: Moves all ext. Without difficulty Skin: General: Skin is warm and dry. Neurological: Mental Status: She is alert and oriented to person, place, and time. Psychiatric: Mood and Affect: Mood normal. Behavior: Behavior normal. LABS: Negative RSV, Covid, and influenza ASSESSMENT/PLAN: 1. Acute bronchitis, unspecified organism - ICD9: 466.0, ICD10: J20.9 - Doxycycline 100 mg 2 x day for 10 days - Medrol dosepak Discussed treatment plan and patient voices unde (more content not included)... [facility] ----- ESTUARDO VILLA ([id number]) 1970 F Date Time Provider Department 01/04/25 9:45 AM [facility] During your visit today, we recorded the following information about you: Temperature Pulse Respiration Blood pressure 97.2 degrees 70/minute 16/minute 126/82 Weight 69.8 kg Nelson Mi MD 01/04/2025 11:09 AM Signed Patient presents with: Cough: x over 2 weeks HPI: Coughing for over 2 weeks. Sent here by work because of bad coughing. She had an initial fever (resolved last week). Production is reduced. Chest pain with cough is resolved. Positive symptoms: Cough, Shortness of breath, Chest pain, Fever, Negative symptoms: Sore throat, Nasal Congestion, Rhinorrhea, Vomiting, Diarrhea, OTC: none currently, took pain reliever when chest was hurting. Denies asthma, smoking, or COPD. She does have a history of pulmonary embolism. PAST MEDICAL HISTORY Diagnosis Date Anxiety state, unspecified Blood dyscrasia Carpal tunnel syndrome Factor V Leiden (HCC) Galactorrhea not associated with childbirth 2006 Hiatal hernia 04/13/2003 [facility] History of 1987,1989,1993 Iron deficiency anemia, unspecified Mental disorder Migraine, unspecified, without mention of intractable migraine without mention of status migrainosus Other pulmonary embolism and infarction 1987 Pulmonary embolism AND factor 5 Leiden MEDICATIONS: Current Outpatient Medications Medication Sig hydrOXYzine HCl (ATARAX) 10 mg tablet Take 1-2 tablets by mouth three times a day as needed. topiramate (TOPAMAX) 100 mg tablet take 1/2 tablet by mouth IN THE MORNING and 1 tablet AT NIGHT pravastatin (PRAVACHOL) 20 mg tablet Take 1 tablet by mouth daily at bedtime. ezetimibe (ZETIA) 10 mg tablet Take 1 tablet by mouth once daily. pantoprazole DR (PROTONIX) 40 mg tablet Take 1 tablet by mouth once daily. FLUoxetine (PROZAC) 40 mg capsule Take 1 capsule by mouth once daily. rimegepant (NURTEC ODT) 75 mg disintegrating tablet Take one tablet every other day promethazine (PHENERGAN) 25 mg tablet Take 1 tablet by mouth every 4 hours as needed for nausea/vomiting. (Patient not taking: Reported on 01/04/2025) No current facility-administered medications for this visit. ALLERGIES: ALLERGIES Allergen Reactions Aleve [Naproxen Sod* GI Upset Bactrim [Sulfametho* Intolerance dizziness and upset stomach Latex Rash Lipitor [Atorvastat* Intolerance Elevated Liver enzymes Penicillins Unknown Tape [Adhesive Tape* Rash Tylenol [Acetaminop* Other: See Comments Nausea Vicodin [Hydrocodon* Vomiting VITALS: BP 126/82 Pulse 70 Temp 36.2 ?C (97.2 ?F) Resp 16 Wt 69.8 kg (153 lb 14.1 oz) SpO2 99% BMI 27.26 kg/m? PHYSICAL EXAM: GEN: Pleasant, intermittently coughing but otherwise no acute distress HEENT: PERRL, EOMI, conjunctiva clear Ears: canals clear. TMs without erythema, bulge, or effusion Sinuses: non-tender frontal sinus, non-tender maxillary sinuses Throat: moist mucous membranes, no erythema, no exudate Neck: supple, no thyromegaly, no lymphadenopathy HEART: regular rate, regular rhythm, no murmurs LUNGS: fine right lower lung crackles, no increased WOB ASSESSMENT/PLAN: 1. Subacute cough - ICD9: 786.2, ICD10: R05.2 - XR CHEST 2V FRONTAL/LAT - negative Discussed bronchitis. Majority of cases are caused by viral infection. Treatment is supportive with cough suppressant. Cough can take up to 5 weeks to resolve. She has been fever free since last week and is unlikely to be contagious. - BENZONATATE 100 MG CAPSULE Follow up with worsening cough, worsening shortness of breath, increasing chest pain, increasing phlegm production, or late onset fever. Nelson Mi MD Allergies As of Date: 01/04/2025 Noted Allergy Reaction ALEVE (NAPROXEN SODIUM) 12/07/2011 8 - GI Upset BACTRIM (SULFAMETHOXAZOLE) 02/09/2014 5 - Intolerance Comments: dizziness and upset stomach LATEX 04/23/2019 2 - Rash LIPITOR (ATORVASTATIN CALCIUM) 12/07/2011 5 - Intolerance Comments: Elevated Liver enzymes PENICILLINS 03/08/2015 16 - Unknown TAPE (ADHESIVE TAPE (ROSINS)) 11/21/2012 2 - Rash TYLENOL (ACETAMINOPHEN) 12/24/2016 14 - Other: See Comments Comments: Nausea VICODIN (HYDROCODONE-ACETAMINOPHE *12/07/2011 11 - Vomiting Date Reviewed: 01/04/2025 Reviewed by: Chani Tse MA - Fully Assessed Reason for Visit: Cough [28] Cmt: x over 2 weeks Primary Visit Diagnosis:Subacute cough [R05.2] Order(s):XR CHEST 2V FRONTAL/LAT [[id number]] Order #: [id number] FUTURE benzonatate (TESSALON PERLE) 100 mg capsuleTake 1 capsule by mouth every 8 hours as needed for cough for up to 15 days.Disp: 30 capsuleRfl: 0 Prescriptions as of 01/04/2025 - benzonatate (TESSALON PERLE) 100 mg capsule Take 1 capsule by mouth every 8 hours as needed for cough for up to 15 days. - hydrO (more content not included)... Normal [facility] XR CHEST 2V FRONTAL/LATon XR CHEST 2V FRONTAL/LAT * * *Final Report* * * DATE OF EXAM: Jan 04 2025 10:49AM WOX [id number] - XR CHEST 2V FRONTAL/LAT / PROCEDURE REASON: Subacute cough * * * * Physician Interpretation * * * * EXAMINATION: CHEST RADIOGRAPH (2 VIEW FRONTAL and LATERAL) CLINICAL HISTORY: Subacute cough MQ: [id number] EXAM DATE/TIME: 01/04/2025 10:49 AM COMPARISON: 10/06/2024 RESULT: Lines, tubes, and devices: None. Lungs and pleura: No consolidation. No lung mass. No pleural effusion. No pneumothorax. Cardiomediastinal silhouette: Normal cardiomediastinal silhouette. Bones and soft tissues: Fixation plate lower cervical spine. IMPRESSION: No acute radiographic abnormality. Communications Attendant: HARJIT Transcribe Date/Time: Jan 04 2025 10:51A Dictated by : RXE LAKHANI MD This examination was interpreted and the report reviewed and electronically signed by: REX LAKHANI MD on Jan 04 2025 10:52AM EST [id number] Normal [facility] XR Chest PA and Lateralon IMPRESSION: No acute radiographic abnormality. Communications Attendant: [place] [facility] Transcribe Date/Time: Jan 04 2025 10:51A Dictated by : REX LAKHANI MD This examination was interpreted and the report reviewed and electronically signed by: REX LAKHANI MD on Jan 04 2025 10:52AM EST DIVISION OF RADIOLOGY * * *Final Report* * * DATE OF EXAM: Jan 04 2025 10:49AM WOX [id number] - XR CHEST 2V FRONTAL/LAT / PROCEDURE REASON: Subacute cough * * * * Physician Interpretation * * * * EXAMINATION: CHEST RADIOGRAPH (2 VIEW FRONTAL & LATERAL) CLINICAL HISTORY: Subacute cough MQ: XC2_6 EXAM DATE/TIME: 01/04/2025 10:49 AM COMPARISON: 10/06/2024 RESULT: Lines, tubes, and devices: None. Lungs and pleura: No consolidation. No lung mass. No pleural effusion. No pneumothorax. Cardiomediastinal silhouette: Normal cardiomediastinal silhouette. Bones and soft tissues: Fixation plate lower cervical spine. DIVISION [facility] RADIOLOGY [facility] * * *Final Report* * * DATE OF EXAM: Jan 04 2025 10:49AM WOX 5291 - XR CHEST 2V FRONTAL/LAT / PROCEDURE REASON: Subacute cough * * * * Physician Interpretation * * * * EXAMINATION: CHEST RADIOGRAPH (2 VIEW FRONTAL & LATERAL) CLINICAL HISTORY: Subacute cough MQ: XC2_6 EXAM DATE/TIME: 01/04/2025 10:49 AM COMPARISON: 10/06/2024 RESULT: Lines, tubes, and devices: None. Lungs and pleura: No consolidation. No lung mass. No pleural effusion. No pneumothorax. Cardiomediastinal silhouette: Normal cardiomediastinal silhouette. Bones and soft tissues: Fixation plate lower cervical spine. IMPRESSION IMPRESSION: No acute radiographic abnormality. Communications Att[facility] Transcribe Date/Time: Jan 04 2025 10:51A Dictated by : REX LAKHANI MD This examination was interpreted and the report reviewed and electronically signed by: REX LAKHANI MD on Jan 04 2025 10:52AM EST [facility] Radiology Study observation (narrative) [facility] XR Chest PA and LateralOrder ed By: Cc Provider on 01-04-2025 [facility] CNOVon 10-06-2024 CNOV Office Visit (UCWSTR ) ----- ESTUARDO VILLA ([id number]) 1970 F Date Time Provider Department 10/06/24 11:45 AM LISA CORTES [facility] During your visit today, we recorded the following information about you: Temperature Pulse Respiration Blood pressure 98.6 degrees 70/minute 18/minute 118/78 Weight 70.5 kg Lisa Cortes PA 10/06/2024 12:40 PM Signed This note was created using Transifexriter. Subjective Estuardo Villa is a 53 year old female. HPI 53-year-old female presents for cough, chest congestion x 4 to 5 days. Patient states last week she started feeling sick. She has had fatigue, cough and chest congestion. She denies any shortness of breath, just feels like there is phlegm in her chest. She states her cough is mostly dry, feels like phlegm is stuck. She denies any fevers, nasal congestion, sore throat. She did have COVID about a month ago, states although symptoms resolved. She has taken Tylenol [id number], without much improvement in symptoms. PAST MEDICAL HISTORY Diagnosis Date Anxiety state, unspecified Blood dyscrasia Carpal tunnel syndrome Factor V Leiden (HCC) Galactorrhea not associated with childbirth 2007 Hiatal hernia 04/13/2003 EGD- [place] History of 1987,1989,1993 Iron deficiency anemia, unspecified Mental disorder Migraine, unspecified, without mention of intractable migraine without mention of status migrainosus Other pulmonary embolism and infarction 1987 Pulmonary embolism AND factor 5 Leiden PAST SURGICAL HISTORY Procedure Laterality Date DELIVERY ONLY 1987,1989,1993 , low transverse EGD 11/24/2020 ESOPHAGOGASTRODUODENOSCOP Y TRANSORAL DIAGNOSTIC 04/13/[address] [facility] Dr. Lundy ESOPHAGOGASTRODUODENOSCOP Y TRANSORAL DIAGNOSTIC 12/08/2018 EGD HYSTERECTOMY HX 2005 left ovaries INCISE FINGER TENDON SHEATH Left 01/11/2021 Left middle trigger finger release GUERIN W/O FACETEC FORAMOT/DSC 1/2 VRT SGM CRV 2006 Laminectomy, cervical and titianium placed NECK SURGERY HX SKIN BIOPSY HX VAGINAL HYSTERECTOMY ALLERGIES Aleve [Naproxen Sodium], Bactrim [Sulfamethoxazole], Latex, Lipitor [Atorvastatin Calcium], Penicillins, Tape [Adhesive Tape (Rosins)], Tylenol [Acetaminophen], and Vicodin [Hydrocodone-Acetaminophe n] MEDICATIONS hydrOXYzine HCl (ATARAX) 10 mg tablet Take 1-2 tablets by mouth three times a day as needed. topiramate (TOPAMAX) 100 mg tablet take 1/2 tablet by mouth IN THE MORNING and 1 tablet AT NIGHT pravastatin (PRAVACHOL) 20 mg tablet Take 1 tablet by mouth daily at bedtime. ezetimibe (ZETIA) 10 mg tablet Take 1 tablet by mouth once daily. pantoprazole DR (PROTONIX) 40 mg tablet Take 1 tablet by mouth once daily. FLUoxetine (PROZAC) 40 mg capsule Take 1 capsule by mouth once daily. promethazine (PHENERGAN) 25 mg tablet Take 1 tablet by mouth every 4 hours as needed for nausea/vomiting. rimegepant (NURTEC ODT) 75 mg disintegrating tablet Take one tablet every other day FAMILY HISTORY Problem Relation Age of Onset Diabetes Mother Headache Mother Hypertension Mother Heart Father 3 NE's, age 52 Cancer Maternal Grandmother Uterine Blood Disease Brother Leiden factor 5, Blood Disease Other Brother's son, Leiden Factor 5 Social History Tobacco Use Smoking status: Never Smokeless tobacco: Never Vaping Use Vaping status: Never Used Substance Use Topics Alcohol use: No Drug use: No Review of Systems Constitutional: Positive for fatigue. Negative for chills and fever. HENT: Negative for congestion, ear pain and sore throat. Respiratory: Positive for cough. Negative for shortness of breath. Cardiovascular: Negative for chest pain. Gastrointestinal: Negative for diarrhea and vomiting. Musculoskeletal: Positive for myalgias. Objective BP 118/78 Pulse 70 Temp 37 ?C (98.6 ?F) (Tympanic) Resp 18 Wt 70.5 kg (155 lb 6.8 oz) SpO2 97% BMI 27.53 kg/m? Physical Exam Vitals and nursing note reviewed. Constitutional: General: She is not in acute distress. Appearance: Normal appearance. She is not toxic-appearing. HENT: Right Ear: Tympanic membrane and ear canal normal. Left Ear: Tympanic membrane and ear canal normal. Nose: Nose normal. Mouth/Throat: Mouth: Mucous membranes are moist. Eyes: Conjunctiva/sclera: Conjunctivae normal. Cardiovascular: Rate and Rhythm: Normal rate and regular rhythm. Pulmonary: Effort: Pulmonary effort is normal. Breath sounds: Normal breath sounds. No wheezing, rhonchi or rales. Skin: General: Skin is warm and dry. Neurological: Mental Status: She is alert. Assessment and Plan ASSESSMENT/PLAN: 1. Acute cough - ICD9: 786.2, ICD10: R05.1 (primary diagnosis) - XR CHEST 2V FRONTAL/LAT-no acute abnormality -Suspect viral -Rx Rm Mejía 2. URI, acute - ICD9: 465.9, ICD10: J06.9 - Discussed viral e (more content not included)... Normal [facility] XR CHEST 2V FRONTAL/LATon XR CHEST 2V FRONTAL/LAT * * *Final Report* * * DATE OF EXAM: Oct 06 2024 12:32PM WOX 5291 - XR CHEST 2V FRONTAL/LAT / PROCEDURE REASON: Acute cough * * * * Physician Interpretation * * * * EXAMINATION: CHEST RADIOGRAPH (2 VIEW FRONTAL and LATERAL) CLINICAL HISTORY: Acute cough MQ: XC2_6 EXAM DATE/TIME: 10/06/2024 12:32 PM COMPARISON: Chest x-ray of 03/14/2023 RESULT: Lines, tubes, and devices: None. Lungs and pleura: No consolidation. No lung mass. No pleural effusion. No pneumothorax. Cardiomediastinal silhouette: Normal cardiomediastinal silhouette. Bones and soft tissues: Unremarkable. Surgical hardware overlies the lower cervical spine. IMPRESSION: No acute radiographic abnormality. Communications Attendant: [employer] Transcribe Date/Time: Oct 06 2024 12:33P Dictated by : MILTON GARCIA MD This examination was interpreted and the report reviewed and electronically signed by: MILTON GARCIA MD on Oct 06 2024 12:34PM EST [id number] Normal [facility] XR Chest PA and Lateralon IMPRESSION: No acute radiographic abnormality. Communications Attendant: HARJIT Transcribe Date/Time: Oct 06 2024 12:33P Dictated by : MILTON GARCIA MD This examination was interpreted and the report reviewed and electronically signed by: MILTON GARCIA MD on Oct 06 2024 12:34PM EST DIVISION OF RADIOLOGY * * *Final Report* * * DATE OF EXAM: Oct 06 2024 12:32PM WOX 5291 - XR CHEST 2V FRONTAL/LAT / PROCEDURE REASON: Acute cough * * * * Physician Interpretation * * * * EXAMINATION: CHEST RADIOGRAPH (2 VIEW FRONTAL & LATERAL) CLINICAL HISTORY: Acute cough MQ: XC2_6 EXAM DATE/TIME: 10/06/2024 12:32 PM COMPARISON: Chest x-ray of 03/14/2023 RESULT: Lines, tubes, and devices: None. Lungs and pleura: No consolidation. No lung mass. No pleural effusion. No pneumothorax. Cardiomediastinal silhouette: Normal cardiomediastinal silhouette. Bones and soft tissues: Unremarkable. Surgical hardware overlies the lower cervical spine. DIVISION OF RADIOLOGY Provider, [facility] - 10/06/2024 * * *Final Report* * * DATE OF EXAM: Oct 06 2024 12:32PM WOX 5291 - XR CHEST 2V FRONTAL/LAT / PROCEDURE REASON: Acute cough * * * * Physician Interpretation * * * * EXAMINATION: CHEST RADIOGRAPH (2 VIEW FRONTAL & LATERAL) CLINICAL HISTORY: Acute cough MQ: XC2_6 EXAM DATE/TIME: 10/06/2024 12:32 PM COMPARISON: Chest x-ray of 03/14/2023 RESULT: Lines, tubes, and devices: None. Lungs and pleura: No consolidation. No lung mass. No pleural effusion. No pneumothorax. Cardiomediastinal silhouette: Normal cardiomediastinal silhouette. Bones and soft tissues: Unremarkable. Surgical hardware overlies the lower cervical spine. IMPRESSION IMPRESSION: No acute radiographic abnormality. Communications Attendant: [facility] Transcribe Date/Time: Oct 06 2024 12:33P Dictated by : MILTON GARCIA MD This examination was interpreted and the report reviewed and electronically signed by: MILTON GARCIA MD on Oct 06 2024 12:34PM [facility] Radiology Study observation (narrative) [facility] XR Chest PA and LateralOrder ed By: Ccf Provider on 10-06-2024 [facility] CNOVon 09-14-2024 CNOV Office Visit (UCWSTR ) ----- ESTUARDO VILLA ([id number]) 1970 F Date Time Provider Department 09/14/24 10:15 AM ROLLY KEEN WSTR During your visit today, we recorded the following information about you: Temperature Pulse Respiration Blood pressure 99.2 degrees 68/minute 14/minute 118/76 Weight 70 kg Rolly Keen, SALES SU[employer] REP.DATER ASSEMBLER 09/14/2024 10:21 AM Signed This note was created using BitMethod. Subjective Estuardo Villa is a 53 year old female. HPI Three days ago pt developed uri symptoms and today tested positive for Covid. She presents today stating that she needs a note for work. Review of Systems Constitutional: Positive for fatigue. Negative for fever. HENT: Positive for congestion. Respiratory: Positive for cough. Objective BP 118/76 Pulse 68 Temp 37.3 ?C (99.2 ?F) (Tympanic) Resp 14 Wt 70 kg (154 lb 5.2 oz) SpO2 98% BMI 27.34 kg/m? Physical Exam Vitals and nursing note reviewed. Constitutional: General: She is not in acute distress. Appearance: Normal appearance. She is not ill-appearing. HENT: Head: Normocephalic. Mouth/Throat: Mouth: Mucous membranes are moist. Eyes: Conjunctiva/sclera: Conjunctivae normal. Cardiovascular: Rate and Rhythm: Normal rate and regular rhythm. Pulmonary: Effort: Pulmonary effort is normal. Breath sounds: Normal breath sounds. Musculoskeletal: General: Normal range of motion. Cervical back: Normal range of motion. Skin: General: Skin is warm and dry. Neurological: General: No focal deficit present. Mental Status: She is alert. Psychiatric: Mood and Affect: Mood normal. Behavior: Behavior normal. Assessment and Plan ASSESSMENT/PLAN: 1. COVID-19 - ICD9: 079.89, ICD10: U07.1 Discussed retesting for COVID but as patient did a positive home test patient preferred not to be retested. We did discuss treatment with Paxlovid which she prefers not to take at this time . she was written off of work until the per her job's policy. She is to follow-up with PCP and return for any new or worsening concerns. Rolly Keen APRN.DATER ASSEMBLER Allergies As of Date: 09/14/2024 Noted Allergy Reaction ALEVE (NAPROXEN SODIUM) 12/07/2011 8 - GI Upset BACTRIM (SULFAMETHOXAZOLE) 02/09/2014 5 - Intolerance Comments: dizziness and upset stomach LATEX 04/23/2019 2 - Rash LIPITOR (ATORVASTATIN CALCIUM) 12/07/2011 5 - Intolerance Comments: Elevated Liver enzymes PENICILLINS 03/08/2015 16 - Unknown TAPE (ADHESIVE TAPE (ROSINS)) 11/21/2012 2 - Rash TYLENOL (ACETAMINOPHEN) 12/24/2016 14 - Other: See Comments Comments: Nausea VICODIN (HYDROCODONE-ACETAMINOPHE *12/07/2011 11 - Vomiting Date Reviewed: 09/14/2024 Reviewed by: Rolly Keen APRN.DATER ASSEMBLER - Fully Assessed Reason for Visit: Sore Throat [200] Cmt: Cough, runny nose, body aches/chills, + covid x 3 days Primary Visit Diagnosis:COVID-19 [U07.1] Prescriptions as of 09/14/2024 - topiramate (TOPAMAX) 100 mg tablet take 1/2 tablet by mouth IN THE MORNING and 1 tablet AT NIGHT - pravastatin (PRAVACHOL) 20 mg tablet Take 1 tablet by mouth daily at bedtime. - ezetimibe (ZETIA) 10 mg tablet Take 1 tablet by mouth once daily. - hydrOXYzine HCl (ATARAX) 10 mg tablet Take 1-2 tablets by mouth three times a day as needed. - pantoprazole DR (PROTONIX) 40 mg tablet Take 1 tablet by mouth once daily. - FLUoxetine (PROZAC) 40 mg capsule Take 1 capsule by mouth once daily. - promethazine (PHENERGAN) 25 mg tablet Take 1 tablet by mouth every 4 hours as needed for nausea/vomiting. - rimegepant (NURTEC ODT) 75 mg disintegrating tablet Take one tablet every other day Problem List As Of Date 09/14/2024 Noted Resolved Galactorrhea not associated with childbirth [N6*07/07/2010 09/30/2018 Mastodynia [N64.4] 07/07/2010 09/30/2018 Lump or mass in breast [N63.0] 07/07/2010 09/30/2018 Hyperlipidemia [E78.5] 12/10/2011 Palpitations [R00.2] 01/11/2012 Hiatal hernia [K44.9] 01/11/2012 Carpal tunnel syndrome [G56.00] 01/11/2012 Anxiety [F41.9] 01/11/2012 Migraine [G43.909] 01/11/2012 Factor V Leiden (HCC) [D68.51] Sprain and strain of unspecified site of elbow *06/15/2014 Esophageal dysphagia [R13.19] 10/29/2018 Globus sensation [R09.A2] 10/29/2018 Epigastric pain [R10.13] 10/29/2018 Gastroesophageal reflux disease [K21.9] 10/29/2018 Acute pain of right knee [M25.561] 12/07/2022 Iron deficiency anemia due to chronic blood los*01/29/2023 Chronic superficial gastritis without bleeding *08/09/2023 Letter Text Encounter Status:Closed by ROLLY KEEN on 09/14/24 Normal [facility] Urgent Care Visit Reporton 0 07-22-2024 Urgent Care Visit Report [facility] [address], [address] [place] [address] OFFICE VISIT Date of Service: 07/22/24 MR#: [id number] Acct: [id number] Name: ALLENESTUARDO M Rep #: [id number] : 1970 Provider: DELORIS Santana Age/Sex: 53/F Location: [facility] Status: Signed Intake Vital Signs 06/29/23 11:14 Height 5 ft 4 in Intake Visit Reasons: PRE EMP/[facility]YS[facility] Chief Complaint: chest pain Allergies latex Allergy (Verified 05/30/23 16:22) Rash Penicillins Allergy (Verified 05/30/23 16:22) Other acetaminophen (From Tylenol) Adverse Reaction (Verified 05/30/23 16:22) Nausea naproxen (From Aleve) Adverse Reaction (Verified 05/30/23 16:22) Nausea/Vom/Diarrhea PFSH Medical History Anxiety Factor 5 Leiden mutation, heterozygous Hypercholesteremia Hyperlipidemia Surgical History H/O neck surgery S/P S/P hysterectomy Family History Mother Diabetes Grandmother Cervical cancer Social History Smoking Status: Never smoker alcohol intake: current alcohol intake frequency: holidays/special occasions only substance use type: does not use caffeine: Yes what type of physical activity do you participate in: none seatbelt use: sometimes do you feel safe at home: Yes 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 [employer] Chief Complaint: chest pain Details: ESTUARDO VILLA, is a 53 F who presents to the office today for Office Procedures Physical Exam Coding PE Coding Pre-employment PE: Yes Coding Level of Care Code No Charge Diagnoses Physical exam, pre-employment Z02.1 Assessment and Plan Assessment and Plan (1) Physical exam, pre-employment: Status: Acute 07/22/24 1430 Date Kenyon Castillo Signature: Date (if applicable) CC: Normal [facility] Lipid 1996 panelon 4 Cholesterol [Mass/Vol] 419 mg/dL High NINF - 200 mg/dL [facility] Comment on above: <200 mg/dL, Desirabl e 200-239 mg/dL, Borderline high >239 mg/dL, High Cholesterol in HDL [Mass/Vol] 58 mg/dL 39 - PINF mg/dL [facility] Comment on above: 40-59 mg/dL, Accepta ble >59 mg/dL, High: Negative risk factor for coronary heart disease <40 mg/dL, Low: Positive risk factor for coronary heart disease Cholesterol in LDL [Mass/Vol] 321 mg/dL High NINF - 100 mg/dL [facility] Comment on above: <100 mg/dL, Optimal 100-129 mg/dL, Near optimal/above optimal 130-159 mg/dL, Borderline high 160-189 mg/dL, High >189 mg/dL, Very high Secondary prevention optimal LDL Cholesterol levels are recommended to be < 70 mg/dL Cholesterol in LDL/Cholesterol in HDL [Mass ratio] 5.53 {ratio} High NINF - 2.54 [facility] Comment on above: Reference: 1. National Cholesterol Education Program ATP III Guideline At-A-Glance Quick Desk Reference: National Heart, Lung, and Blood [place]. National Institutes of Health. 2001: NIH Publication No. 01-3305. 2. An International Atherosclerosis Society position paper: global recommendations for the management of dyslipidemia: executive summary, Atherosclerosis. 2014: 232(2):410-413. Cholesterol in VLDL [Mass/Vol] 40 mg/dL High NINF - 30 mg/dL [facility] Cholesterol non HDL [Mass/Vol] 361 mg/dL High NINF - 130 mg/dL [facility] Comment on above: <130 mg/dL, Optimal 130-159 mg/dL, Near optimal/above optimal 160-189 mg/dL, Borderline high 190-219 mg/dL, High >219 mg/dL, Very high Secondary prevention optimal non HDL Cholesterol levels are recommended to be <100 mg/dL Cholesterol.total/Chol esterol in HDL [Mass ratio] 7.22 {ratio} High NINF - 5.10 [facility] Fasting Time [address] [facility] Interpretation and review of laboratory results Abnormal [facility] Triglyceride [Mass/Vol] 198 mg/dL High NINF - 150 mg/dL [facility] Comment on above: <150 mg/dL, Normal 150-199 mg/dL, Borderline high 200-499 mg/dL, High >499 mg/dL, Very high [facility] No Panel Informationon 03-14 Radiology Study observation (narrative) [facility] XR Ribs - right Views and Ch est PAon 03-14-2023 IMPRESSION: No acute right rib fracture. Communications Attendant: HARJIT Transcribe Date/Time: Mar 14 2023 11:22A Dictated by : DONYA HUGHES MD This examination was interpreted and the report reviewed and electronically signed by: DONYA HUGHES MD on Mar 14 2023 11:25AM [facility] DIVISION OF RADIOLOGY * * *Final Report* * * DATE OF EXAM: Mar 14 2023 11:19AM WOX 5244 - XR RIB/CHST 3V AP RIB/OBL/CHST R / PROCEDURE REASON: multiple diagnoses * * * * Physician Interpretation * * * * XR RIB/CHST 3V AP RIB/OBL/CHST R EXAM DATE/TIME: 03/14/2023 11:19 AM COMPARISON: None. CLINICAL INDICATION/HISTORY: Right-sided rib pain. TECHNIQUE: AP views centered high and low and oblique view of right ribs are presented for interpretation. PA view of the chest is also present. FINDINGS: There is no acute right rib fracture or other bony abnormality seen. There is no pneumothorax or pleural effusion. The underlying visualized lungs appear normal. DIVISION OF RADIOLOGY Provider, [facility] - 03/14/2023 * * *Final Report* * * DATE OF EXAM: Mar 14 2023 11:19AM WOX 5244 - XR RIB/CHST 3V AP RIB/OBL/CHST R / PROCEDURE REASON: multiple diagnoses * * * * Physician Interpretation * * * * XR RIB/CHST 3V AP RIB/OBL/CHST R EXAM DATE/TIME: 03/14/2023 11:19 AM COMPARISON: None. CLINICAL INDICATION/HISTORY: Right-sided rib pain. TECHNIQUE: AP views centered high and low and oblique view of right ribs are presented for interpretation. PA view of the chest is also present. FINDINGS: There is no acute right rib fracture or other bony abnormality seen. There is no pneumothorax or pleural effusion. The underlying visualized lungs appear normal. IMPRESSION IMPRESSION: No acute right rib fracture. Communications Attendant: HARJIT Transcribe Date/Time: Mar 14 2023 11:22A Dictated by : DONYA HUGHES MD This examination was interpreted and the report reviewed and electronically signed by: DONYA HUGHES MD on Mar 14 2023 11:25AM EST [facility] XR Ribs - right Views and est PAOrdered By: Ccf Provider on 03-14-2023 [facility] XR Thoracic spine AP and Lat eral and [place]imm[place] 03-14-2023 IMPRESSION: Mild degenerative changes in the thoracic spine. Communications Attendant: HARJIT Transcribe Date/Time: Mar 14 2023 11:20A Dictated by : DONYA HUGHES MD This examination was interpreted and the report reviewed and electronically signed by: DONYA HUGHES MD on Mar 14 2023 11:22AM [facility] DIVISION OF RADIOLOGY * * *Final Report* * * DATE OF EXAM: Mar 14 2023 11:19AM WOX 5261 - XR THORACIC 3V AP/LAT/SWIMMERS / PROCEDURE REASON: multiple diagnoses * * * * Physician Interpretation * * * * EXAM TITLE: XR THORACIC 3V AP/LAT/SWIMMERS EXAM DATE/TIME: 03/14/2023 11:19 AM COMPARISON: None. CLINICAL INDICATION/HISTORY: Back pain TECHNIQUE: AP, swimmer's and lateral views of the thoracic spine are presented FINDINGS: No fractures or subluxations are noted. The disc spaces are well preserved. There is mild osteophyte formation. There is no paraspinal mass or bony destructive process. Others: Status post cervical spinal fusion. DIVISION OF RADIOLOGY Provider, [facility] - 03/14/2023 * * *Final Report* * * DATE OF EXAM: Mar 14 2023 11:19AM WOX 5261 - XR THORACIC 3V AP/LAT/SWIMMERS / PROCEDURE REASON: multiple diagnoses * * * * Physician Interpretation * * * * EXAM TITLE: XR THORACIC 3V AP/LAT/SWIMMERS EXAM DATE/TIME: 03/14/2023 11:19 AM COMPARISON: None. CLINICAL INDICATION/HISTORY: Back pain TECHNIQUE: AP, swimmer's and lateral views of the thoracic spine are presented FINDINGS: No fractures or subluxations are noted. The disc spaces are well preserved. There is mild osteophyte formation. There is no paraspinal mass or bony destructive process. Others: Status post cervical spinal fusion. IMPRESSION IMPRESSION: Mild degenerative changes in the thoracic spine. Communications Attendant: HARJIT Transcribe Date/Time: Mar 14 2023 11:20A Dictated by : DONYA HUGHES MD This examination was interpreted and the report reviewed and electronically signed by: DONYA HUGHES MD on Mar 14 2023 11:22AM EST [facility] ASHLEE SCREENINGon 02-22-2023 [facility] UA DIP, URINE (POC)on 2022 BILIRUBIN UA (POCT) Negative Negative [facility] CLARITY UA (POCT) Clear [facility] COLOR UA (POCT) Yellow [facility] GLUCOSE UA (POCT) Negative Negative mg/dL [facility] HEMOGLOBIN/BLOOD UA (POCT) Negative Negative [facility] KETONE UA (POCT) Negative Negative mg/dL [facility] LEUKOCYTES UA (POCT) Trace Abnormal Negative [facility] NITRITE UA (POCT) Positive Abnormal Negative [facility] PH UA (POCT) 6.0 4.5 - 8.0 [facility] Protein Ql (U) Negative Negative mg/dL [facility] SPECIFIC GRAVITY UA (POCT) <=1.005 Abnormal 1.005 - 1.030 [facility] UROBILINOGEN UA (POCT) 0.2 E.U./dL Maria Luisa l E.U./dL [facility] CORONAVIRUS 2019 BY PCRon DATE OF SYMPTOM ONSET [YYYYMMDD]? [id number] Normal [facility] Comment on above: Order Comment: LUIS MCALLISTER Performed By: #### C OV19 #### [facility] [address] [place] [address] [facility] [address] [place] [address] SARS-CoV-2 (COVID-19) RNA RADHA+probe Ql (Unsp spec) Detected Abnormal Not Detected [facility] Comment on above: Order Comment: LUIS MCALLISTER Result Comment: . This test has received FDA Emergency Use Authorization (EUA) and has been verified by [facility]. This test is only authorized for the duration of time that circumstances exist to justify the authorization of the emergency use of in vitro diagnostic tests for the detection of SARS-CoV-2 virus and/or diagnosis of COVID-19 infection under section 564(b)(1) of the Act, 21 U.S.C. 360bbb-3(b)(1), unless the authorization is terminated or revoked sooner. [facility] is certified under CLIA-88 as qualified to perform high complexity testing. Testing is performed in the [facility] laboratory located at [address] [place] [address]. SARS-CoV-2/Flu/RSV Multiplex Test: Fact sheet for providers: https://www.fda.gov/media/497989/download Fact sheet for patients: https://www.fda.gov/media/636006/download Performed By: #### C OV19 #### [address] [place] [address] CORONAVIRUS 2019 BY PCRon Lab Specimen Source Nasal, Nasopharyngeal Normal [facility] Comment on above: Order Comment: LUIS QUINTANILLA [facility] Performed By: #### C OV19 #### [address] [place] [address] Coronavirus 2019 RNA by PCR, Symptomaticon 11-19-2021 Date and time of symptom onset [id number] 1 -[facility] Work Phone: Coronavirus 2019 RNA by PCR, Symptomatic Detected Abnormal See Below -[facility] Work Phone: Comment on above: SOURCE: Nasal, Nasop haryngealReference Range: Not Detected.This test has received FDA Emergency Use Authorization (EUA) and has been verified by [facility]. This test is only authorized for the duration of time that circumstances exist to justify the authorization of the emergency use of in vitro diagnostic tests for the detection of SARS-CoV-2 virus and/or diagnosis of COVID-19 infection under section 564(b)(1) of the Act, 21 U.S.C. 360bbb-3(b)(1), unless the authorization is terminated or revoked sooner. [facility] is certified under CLIA-88 as qualified to perform high complexity testing. Testing is performed in the [facility] laboratory located at [address] [place] [address].SARS-CoV-2/Flu/RSV Multiplex Test: Fact sheet for providers: https://www.fda.gov/media/018102/downloadFact sheet for patients: https://www.fda.gov/media/004080/download SOURCE: Nasal, Nasop haryngealReference Range: Not Detected.This test has received FDA Emergency Use Authorization (EUA) and has been verified by [facility] ([facility]). This test is only authorized for the duration of time that circumstances exist to justify the authorization of the emergency use of in vitro diagnostic tests for the detection of SARS-CoV-2 virus and/or diagnosis of COVID-19 infection under section 564(b)(1) of the Act, 21 U.S.C. 360bbb-3(b)(1), unless the authorization is terminated or revoked sooner. [facility] is certified under CLIA-88 as qualified to perform high complexity testing. Testing is performed in the [facility] located at [address] [place] [address].SARS-CoV-2/Flu/RSV Multiplex Test: Fact sheet for providers: https://www.fda.gov/media/459527/downloadFact sheet for patients: https://www.DPSI.gov/media/353172/download Date and time of symptom onset [facility] Work Phone: CORONAVIRUS 2019, SCREEN ASY MPTOMATICon 08-14-2021 SARS-CoV-2 (COVID-19) RNA RADHA+probe Ql (Unsp spec) Not detected Normal Not Detected [facility] Comment on above: Order Comment: LUIS HARRIS Result Comment: . This assay is designed to detect the N, ORF1ab and/or S genes of SARS-CoV-2 via nucleic acid amplification. A Negative (NOT DETECTED) result does not preclude 2019-nCoV infection since the adequacy of sample collection and/or low viral burden may result in presence of viral nucleic acids below the clinical sensitivity of this test method. Negative (NOT DETECTED) result should not be used as the sole basis for treatment or other patient management decisions. Rather negative results should be combined with clinical observations, patient history, and epidemiological information to make patient management decisions. Fact sheet for providers: https://www.fda.gov/media/831405/download Fact sheet for patients: https://www.fda.gov/media/427437/download This test has received FDA Emergency Use Authorization (EUA) and has been verified by [facility] ([facility]). This test is only authorized for the duration of time that circumstances exist to justify the authorization of the emergency use of in vitro diagnostic tests for the detection of SARS-CoV-2 virus and/or diagnosis of COVID-19 infection under section 564(b)(1) of the Act, 21 U.S.C. 360bbb-3(b)(1), unless the authorization is terminated or revoked sooner. [facility] is certified under CLIA-88 as qualified to perform high complexity testing. Testing is performed in the [facility] laboratories located at [address] [place] [address]. Performed By: #### C OVSC #### [address] [place] [address] DATE OF SYMPTOM ONSET [[id number]]? [facility] Comment on above: Order Comment: LUIS QUINTANILLA SKILLED Performed By: #### C OVSC #### [address] [place] [address] Lab Specimen Source Nasal, Nasopharyngeal [facility] Comment on above: Order Comment: LUIS QUINTANILLA SKILLED Performed By: #### C OVSC #### [address] [place] [address] HISTORY PHYSICALon HISTORY PHYSICAL HNO ID: [id number] Author: Kory Barone Service: Orthopaedic Surgery Author Type: Physician Type: HANDP Filed: 01/11/2021 10:51 AM Note Text: Kory Barone MD Department of Orthopaedics Orthopaedics [address] [facility] [address] Dept: [phone] Dept ? ? December 19, 2020 ? CHIEF COMPLAINT: Established Patient of the Left Middle Finger and Left middle trigger finger (Referred by - Last seen 07/25/20OA left knee) ? HPI Patient states 2 months ago she started having pain, locking and swelling. Started feeling better after she was referred here and decided not to be evaluated. Today at work her finger locked and had to help open it. At night that finger will ache. At times her finger felt like she had fractured it. Patient is right hand dominant. 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 Dr. Mcdonald gave her Voltaren gel to apply to her finger but did not help. Taking Advil as needed due to it can upset her stomach. Patient states she had been applying a heating pad at night and does make her hand fell better. ? AMB ROOMING INTAKE FLOWSHEET DATA Risk Screening Do you have concerns about personal safety or safety in the home?: No Pain Pain Level: 5 Pain Location: Finger(Left middle finger) Description: Sharp Duration Amount of Time: 2 Duration Units: Months Frequency: Intermittent Intervention: Medication Comments: Voltaren Gel ? ASSESSMENT: M65.332 Trigger middle finger of left hand ? PLAN: Risks, benefits, alternatives and potential complications were reviewed and she wishes to pursue surgery ? Ms. Estuardo Villa was advised as to contrast therapies and/or to take analgesics/anti-inflammat ories as needed and all contraindications were reviewed. ? ? OBJECTIVE: Ms. Estuardo Villa is a pleasant 50 year old in no apparent distress. Gen:There were no vitals taken for this visit. nl development, non obese, no deformities ENT: Normocephalic, normal hearing, moist mucosa CV: Pulses:Radial= 2+ and symmetric, capillary refill < 2 secs, no peripheral edema/varicosities. HEART RRR Nml S1, S2 LUNGS: CTA B/L Skin: no rash, bruising or lesions. Good turgor. Psych: cooperative and appropriate, alert and oriented x 3, good mood and affect. Musculoskeletal: TTP at the A1 lorna of the middle, left finger, Catching and locking. ? ? Imaging: Deferred today ? Supporting Subjective Information Below: ? Past Surgical History: PAST SURGICAL HISTORY PAST SURGICAL HISTORY Procedure Laterality Date - DELIVERY ONLY ? 1987,1989,1993 ? , low transverse - EGD ? 11/24/2020 - EGD W/O OR W/BRUSH/WASH ? 04/13/2003 ? EGD [facility] Dr. Lundy - EGD W/O OR W/BRUSH/WASH ? 12/08/2018 ? EGD - HYSTERECTOMY HX ? 2004 ? left ovaries - LAMINECTOMY,CERVICAL ? 2005 ? Laminectomy, cervical and titianium placed - NECK SURGERY HX ? ? - SKIN BIOPSY HX ? ? - VAGINAL HYSTERECTOMY ? ? ? Medications: CURRENT MEDICATIONS Current Outpatient Medications Medication Sig - pantoprazole DR (PROTONIX) 20 mg tablet Take 20 mg by mouth once daily. - pravastatin (PRAVACHOL) 20 mg tablet Take 1 tablet by mouth daily at bedtime. - diclofenac (VOLTAREN) 1 % topical gel Apply 2 g to affected area four times daily. - sucralfate (CARAFATE) 1 gram tablet Take 1 tablet by mouth three times daily before meals. - promethazine (PHENERGAN) 50 mg tab(s) Take 1 tablet by mouth every 6 hours as needed. - famotidine (PEPCID) 20 mg tablet Take one tablet, twice daily.May increase to two tablets, when needed. - ferrous sulfate 325 mg (65 mg iron) tablet Take 1 tablet by mouth twice daily with meals. - FLUoxetine (PROZAC) 20 mg capsule Take 1 capsule by mouth once daily. (Patient not taking: Reported on 12/19/2020 ) ? No current facility-administered medications for this visit. ? Allergies: Aleve [Naproxen Sodium], Bactrim [Sulfamethoxazole], Lipitor [Atorvastatin Calcium], Penicillins, Tape [Adhesive Tape (Rosins)], Tylenol [Acetaminophen], and Vicodin [Hydrocodone-Acetaminophe n] ? ROS: General (negative for fatigue, malaise, weight loss/gain) HEENT (negative for headache, earache, recent vision changes, sinus pain, sore throat) Respiratory (no recent shortness of breath, hemoptysis) CV (negative for chest tightness, palpitations) Musculoskeletal (see HPI) Psych (no depression, anxiety) ? ? Kory Barone MD [facility] NURSING PROGon 01-11-2021 NURSING PROG HNO ID: [id number] Author: Jose (Rn) STEPHANIE Thomas Service: Nursing Author Type: Registered Nurse Type: Nursing Progress Note Filed: 01/11/2021 10:26 AM Note Text: Dr. Barone at bedside for Left hand middle finger local block. RN at bedside, pt monitored throughout, BP 157/86 Temp 36.2 ?C (97.2 ?F) (Temporal Artery) Resp 16 SpO2 100% . Pt tolerated procedure without difficulty. [facility] OPERATIVE NOon 01-11-2021 OPERATIVE NO HNO ID: [id number] Author: Kory Barone Service: Orthopaedic Surgery Author Type: Physician Type: Operative Report Filed: 01/11/2021 10:52 AM Note Text: OPERATIVE/PROCEDURE REPORT LOG ID: [id number] Surgery/Procedure Date: 01/11/2021 Incision/Procedure Start Time: 10:37 AM Incision Close/Procedure End Time: 10:46 AM Surgeon(s)/Proceduralist( s) and Healthcare Administration Intern(s): Surgeon(s) and Role: * Kory Barone - Primary Registered Nurse Biomedical Specialist: Estefany (Rn) STEPHANIE Monteiro Procedure(s): left middle trigger release. Anesthesia: Local. Procedure Details: On 01/11/2021, the patient was clearly identified in the preoperative area and marked accordingly on the left middle by myself. After a chloroprep swab, Local anesthetic was provided at the base of the middle near the A1 lorna site for a total of 2 mL of 1% lidocaine with Epinephrine. Patient was taken to the operative suite and placed in the supine position with an arm board on the left. All other bony landmarks were appropriately padded in standard fashion. The left upper extremity was sterilely prepped and draped in standard fashion. An appropriate time-out was conducted and all in the room were in agreement, signed consent form was on the chart. An incision was made over the A1 lorna of the middle. This was done superficially with a 15 blade and blunt dissection was taken down longitudinally to the flexor apparatus. The digital nerves were clearly identified and protected throughout the case with Crile retractors. Under direct visualization, I divided the A1 lorna site of the middle with a 15 blade. There was obvious tenosynovitis and a slight synovectomy was made with Littler scissors. I used a Ragnell retractor to pull the tendon up through the wound confirming its complete release. The wound was copiously irrigated and the tourniquet was taken down. Hemostasis was observed with bipolar electrocautery. Closure was done with 4-0 Monosof sutures in horizontal mattress fashion for a total of 2. Xeroform gauze, an eye patch, light Nahed wrap and Coban was used for final bandage. There were no complications during the procedure. Patient was safely awoken and transferred to the Postanesthetic Care Unit in stable condition. Pre-Op/Pre-Procedure Diagnosis: left middle trigger finger Post-Op/Post-Procedure Diagnosis: left middle trigger finger. Estimated Blood Loss: None Specimens: None Implantable Devices: None Drains: None Complications: None The primary surgeon/proceduralist performed the entire procedure. SIGNATURE: Kory Barone MD PATIENT NAME: Estuardo Villa DATE: January 11, 2021 TIME: 10:52 AM PAGER/CONTACT #: [facility] 12-20-2020 [facility] Patient:Estuardo Villa MRN: Height:5' 3.78(1.62 m) Weight:163 lb 9.6 oz (74.208 kg) Outpatient Medications as of 01/11/21: MULTIVITAMIN ORAL elderberry fruit (ELDERBERRY ORAL) pantoprazole DR (PROTONIX) 20 mg tablet pravastatin (PRAVACHOL) 20 mg tablet FLUoxetine (PROZAC) 20 mg capsule diclofenac (VOLTAREN) 1 % topical gel sucralfate (CARAFATE) 1 gram tablet promethazine (PHENERGAN) 50 mg tab(s) famotidine (PEPCID) 20 mg tablet ferrous sulfate 325 mg (65 mg iron) tablet Admission/Clinic Administered Medications as of 01/11/21: lidocaine-EPINEPHrine 2 %-1:100,000 10 mL injection Problem List: Hyperlipidemia [E78.5] Palpitations [R00.2] Hiatal hernia [K44.9] Carpal tunnel syndrome [G56.00] Anxiety [F41.9] Migraine [G43.909] Factor V Leiden (HCC) [D68.51] Sprain and strain of unspecified site of elbow and forearm [[id number]] Esophageal dysphagia [R13.10] Globus sensation [R09.89] Epigastric pain [R10.13] Gastroesophageal reflux disease [K21.9] Allergies: Aleve [Naproxen Sodium] Bactrim [Sulfamethoxazole] Lipitor [Atorvastatin Calcium] Penicillins Tape [Adhesive Tape (Rosins)] Tylenol [Acetaminophen] Vicodin [Hydrocodone-Acetaminophe n] Date Verified: 01/11/21 Lab Values No results within the last 30 days for the following basenames: K,HCT Progress Notes ([facility]): Rose Smith Claire Hector 12/19/2020 4:50 PM Signed Please schedule patient for left middle trigger finger release under local anesthesia on 01/11/2021. Post op appointments and pre op COVID testing at [facility]. Please sign pre op COVID order. Laurie Dia PA-C 12/20/2020 8:06 AM Signed COVID order signed. Rose Smith Claire Ma 12/23/2020 9:14 AM Signed Surgery has been scheduled as requested. Progress Notes ([facility]): Kory Barone MD 01/11/2021 7:35 AM Signed Kory Barone MD Department of Orthopaedics Orthopaedics [address] [facility] [address] Dept: [phone] Dept December 19, 2020 CHIEF COMPLAINT: Established Patient of the Left Middle Finger and Left middle trigger finger (Referred by - Last seen 07/25/20OA left knee) HPI Patient states 2 months ago she started having pain, locking and swelling. Started feeling better after she was referred here and decided not to be evaluated. Today at work her finger locked and had to help open it. At night that finger will ache. At times her finger felt like she had fractured it. Patient is right hand dominant. 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 Dr. Mcdonald gave her Voltaren gel to apply to her finger but did not help. Taking Advil as needed due to it can upset her stomach. Patient states she had been applying a heating pad at night and does make her hand fell better. AMB ROOMING INTAKE FLOWSHEET DATA Risk Screening Do you have concerns about personal safety or safety in the home?: No Pain Pain Level: 5 Pain Location: Finger(Left middle finger) Description: Sharp Duration Amount of Time: 2 Duration Units: Months Frequency: Intermittent Intervention: Medication Comments: Voltaren Gel ASSESSMENT: M65.332 Trigger middle finger of left hand PLAN: Risks, benefits, alternatives and potential complications were reviewed and she wishes to pursue surgery Ms. Estuardo Villa was advised as to contrast therapies and/or to take analgesics/anti-inflammat ories as needed and all contraindications were reviewed. OBJECTIVE: Ms. Estuardo Villa is a pleasant 50 year old in no apparent distress. Gen:There were no vitals taken for this visit. nl development, non obese, no deformities ENT: Normocephalic, normal hearing, moist mucosa CV: Pulses:Radial= 2+ and symmetric, capillary refill < 2 secs, no peripheral edema/varicosities. HEART RRR Nml S1, S2 LUNGS: CTA B/L Skin: no rash, bruising or lesions. Good turgor. Psych: cooperative and appropriate, alert and oriented x 3, good mood and affect. Musculoskeletal: TTP at the A1 lorna of the middle, left finger, Catching and locking. Imaging: Deferred today Supporting Subjective Information Below: Past Surgical History: PAST SURGICAL HISTORY Procedure Laterality Date - DELIVERY ONLY 1987,1989,1993 , low transverse - EGD 11/24/2020 - EGD W/O OR W/BRUSH/WASH 04/13/[address] [facility] Dr. Lundy - EGD W/O OR W/BRUSH/WASH 12/08/2018 EGD - HYSTERECTOMY HX 2005 left ovaries - LAMINECTOMY,CERVICAL 2006 Laminectomy, cervical and titianium placed - NECK SURGERY HX - SKIN BIOPSY HX - VAGINAL HYSTERECTOMY Medications: Current Outpatient Medications Medication Sig - pantoprazole DR (PROTONIX) 20 mg tablet Take 20 mg by mouth once daily. - pravastatin (PRAVACHOL) 20 mg tablet Take 1 tablet by mouth daily at bedtime. - diclofenac (VOLTAREN) 1 % topical gel Apply 2 g to affected area four times daily. - sucralfate (CARAFATE) 1 gram tablet Take 1 tablet by mouth three times daily before meals. - promethazine (PHENERGAN) 50 mg tab(s) Take 1 tablet by mouth every 6 hours as needed. - famotidine (PEPCID) 20 mg tablet Take one tablet, twice daily.May increase to two tablets, when needed. - ferrous sulfate 325 mg (65 mg iron) tablet Take 1 tablet by mouth twice daily with meals. - FLUoxetine (PROZAC) 20 mg capsule Take 1 capsule by mouth once daily. (Patient not taking: Reported on 12/19/2020 ) No current facility-administered medications for this visit. Allergies: Aleve [Naproxen Sodium], Bactrim [Sulfamethoxazole], Lipitor [Atorvastatin Calcium], Penicillins, Tape [Adhesive Tape (Rosins)], Tylenol [Acetaminophen], and Vicodin [Hydrocodone-Acetaminophe n] ROS: General (negative for fatigue, malaise, weight loss/gain) HEENT (negative for headache, earache, recent vision changes, sinus pain, sore throat) Respiratory (no recent shortness of breath, hemoptysis) CV (negative for chest tightness, palpitations) Musculoskeletal (see HPI) Psych (no depression, anxiety) Kory Barone MD Previous Version Normal [facility] XR Hand - bilateral PA and L ateral and Obliqueon 08-24-2020 IMPRESSION: No acute bag adjuster: HARJIT Transcribe Date/Time: Aug 24 2020 3:46P Dictated by : EDDIE GONGORA DO This examination was interpreted and the report reviewed and electronically signed by: EDDIE GONGORA DO on Aug 24 2020 3:48PM [facility] DIVISION OF RADIOLOGY * * *Final Report* * * DATE OF EXAM: Aug 23 2020 1:13PM WOX [id number] - XR HAND 3V PA/LAT/OBL MARIA FERNANDA / PROCEDURE REASON: multiple diagnoses * * * * Physician Interpretation * * * * Bilateral hands EXAM DATE/TIME: 08/23/2020 1:13 PM HISTORY: 49 years old Clinical information: Bilateral hand pain Bilateral hand pain Trigger middle finger of left hand bilatera; joint pain in hands, left 3rd finger gets stuck and becomes painful for 2 months TECHNIQUE: Images: XR HAND 3V PA/LAT/OBL MARIA FERNANDA Comparison: None. RESULT: Findings: Bilateral findings: Bone density is well-preserved. Joint spaces appear well-preserved. Right :No fractures or dislocations are seen. Left :No fractures or dislocations are seen. DIVISION OF RADIOLOGY Provider, [facility] - 08/24/2020 * * *Final Report* * * DATE OF EXAM: Aug 23 2020 1:13PM WOX [id number] - XR HAND 3V PA/LAT/OBL MARIA FERNANDA / PROCEDURE REASON: multiple diagnoses * * * * Physician Interpretation * * * * Bilateral hands EXAM DATE/TIME: 08/23/2020 1:13 PM HISTORY: 49 years old Clinical information: Bilateral hand pain Bilateral hand pain Trigger middle finger of left hand bilatera; joint pain in hands, left 3rd finger gets stuck and becomes painful for 2 months TECHNIQUE: Images: XR HAND 3V PA/LAT/OBL MARIA FERNANDA Comparison: None. RESULT: Findings: Bilateral findings: Bone density is well-preserved. Joint spaces appear well-preserved. Right :No fractures or dislocations are seen. Left :No fractures or dislocations are seen. IMPRESSION IMPRESSION: No acute bag adjuster: HARJIT Transcribe Date/Time: Aug 24 2020 3:46P Dictated by : EDDIE GONGORA DO This examination was interpreted and the report reviewed and electronically signed by: EDDIE GONGORA DO on Aug 24 2020 3:48PM EST [facility] XR Hand - bilateral PA and L ateral and ObliqueOrdered By: [facility] Provider on 08-24-2020 [facility] XR Hand - bilateral PA and L ateral and Obliqueon 08-23-2020 Radiology Study observation (narrative) [facility] Emergency Room Note on 06-02-2018 [place] [facility] Note Normal [facility] (ID) Patient Summary Documentson 06-02-2018 Patient Summary Documents Normal [facility] ([place]) XR NECK SOFT TISSUEon 2017 XR NECK SOFT TISSUE ORIGINALXR NECK SOFT TISSUE AP and lateral 2 views CLINICAL STATEMENT: pain , feels like something is stuck in the throat COMPARISON: None FINDINGS: There is no enlargement of the epiglottis, palatine tonsils and the prevertebral soft tissue space. The airway is patent. Postoperative changes in the lower cervical spine. On the lateral view, there are small calcific densities projected over the airway at the level of the laryngeal ventricle. Not certain if these are extrinsic are within the hypopharynx. IMPRESSION: Small calcific densities projected over the hypopharynx on the lateral view. Not certain if these are extrinsic or within the hypopharynx. Consider CT soft tissue neck with contrast if radiopaque foreign body is suspected. Interpreted By: Joey Muse MDPreliminary Report By: Joey Muse MDElectronically Signed By: Joey Muse MD Dictated Date: 06/02/2018 12:57:59 PM Prelim Date: 06/02/2018 12:57:59 PM Sign Date: 06/02/2018 1:00:47 PM Normal [facility] ([facility]) CR Foot Complete 3+ Views Nina sarahy 07-04-2017 CR Foot Complete 3+ Views Right Patient Name: ESTUARDO VILLA Diagnostic Radiology Exam Date/Time 07/04/2017 16:09:22 EDT Exam CR Foot Complete 3+ Views Right Ordering Physician IRMA ALEXANDER MICHELLE Accession Number [id number] CPT4 Codes 98254 () Reason For Exam right foot contusion, crush injury Report Right foot 07/04/2017. Clinical Information: Pain. Findings: 3 views of the right foot reveal of the bones to be well mineralized. There is no evidence of fracture or dislocation. No erosive or destructive changes are seen. No radiopaque foreign bodies or subcutaneous emphysema is identified. Impression: No acute process. Report Dictated on Final Dictating Physician: MD GUERRA RISA Signed Date and Time: 07/04/2017 4:45 pm Signed by: MD GUERRA RISA Transcribed Date and Time: 07/04/2017 4:46 Normal [facility] CR Wrist Complete 3 Views [place] 06-04-2017 CR Wrist Complete 3 Views Left Patient Name: ESTUARDO VILLA Diagnostic Radiology Exam Date/Time 06/03/2017 23:16:30 EDT Exam CR Wrist Complete 3 Views Left Ordering Physician DO SANDERS JOSEPH M. Accession Number [id number] CPT4 Codes 86658 () Reason For Exam pain Report LEFT WRIST, 3 VIEWS: INDICATION: Left wrist pain COMPARISON: No previous studies are available for comparison. TECHNIQUE: PA, oblique, and lateral views of the left wrist were obtained. FINDINGS: There is no evidence of acute fracture, dislocation or subluxation. The soft tissues of the wrist are unremarkable. There is no evidence of radio opaque foreign body or soft tissue gas formation. Intercarpal relationships appear well preserved. IMPRESSION: No acute osseous abnormality of the wrist. Report Dictated on Final Dictating Physician: DO MOHAN ALFRED Signed Date and Time: 06/03/2017 11:35 pm Signed by: DO MOHAN ALFRED Transcribed Date and Time: 06/03/2017 11:36 [facility] Vital Signs Date Time Vital Sign Value Performing Clinician Facility 07-07-2025 18:12-0400 Body temperature 97.8 [degF] Dr. Justus Mcdonald MD Work Phone: 0(661)980-097836 [place] [address] 07-07-2025 18:12-0400 Diastolic blood pressure 84 mm[Hg] Dr. Justus Mcdonald MD Work Phone: 1(828)443-518436 [place] [address] 07-07-2025 18:12-0400 Heart rate 64 /min Dr. Justus Mcdonald MD Work Phone: 1(152)813-805036 [place] [address] 07-07-2025 18:12-0400 Respiratory rate 18 /min Dr. Justus Mcdonald MD Work Phone: 1(850)355-016336 [place] [address] 07-07-2025 18:12-0400 SaO2% (BldA) [Mass fraction] 100 % Dr. Justus Mcdonald MD Work Phone: 1(840)160-592736 [place] [address] 07-07-2025 18:12-0400 Systolic blood pressure 121 mm[Hg] Dr. Justus Mcdonald MD Work Phone: 4(772)497-413936 [place] [address] 07-07-2025 16:48-0400 Body height 162.[address] Justus Mcdonald MD Work Phone: 5(241)718-227236 [place] [address] 07-07-2025 16:48-0400 Body mass index (BMI) [Ratio] 26.2 kg/m2 Dr. Justus Mcdonald MD Work Phone: 7(687)319-755036 [place] [address] 07-07-2025 16:48-0400 Body weight 69.[address] Justus Mcdonald MD Work Phone: 5(494)034-657836 [place] [address] 07-07-2025 16:09-0400 Body mass index (BMI) [Ratio] 26.27 kg/m2 Justus Mcdonald MD Work Phone: [facility] 07-07-2025 16:09-0400 Body weight 68.95 kg Justus Mcdonald MD Work Phone: [facility] 07-07-2025 16:09-0400 Diastolic blood pressure 75 mm[Hg] Justus Mcdonald MD Work Phone: [place] [address]-27-2025 16:09-0400 Heart rate 75 /min Justus Mcdonald MD Work Phone: [facility] 07-07-2025 16:09-0400 SaO2% (BldA) [Mass fraction] 98 % Justus Mcdonald MD Work Phone: [facility] 07-07-2025 16:09-0400 Systolic blood pressure 144 mm[Hg] Justus Mcdonald MD Work Phone: [facility] 05-11-2025 09:29-0400 Body height 162 cm Arlet Suppan SALES SUPPORT REP.DATER ASSEMBLER Work Phone: [facility] 05-11-2025 09:29-0400 Body mass index (BMI) [Ratio] 26.1 kg/m2 Arlet Suppan SALES SUPPORT REP.DATER ASSEMBLER Work Phone: [facility] 05-11-2025 09:29-0400 Body weight 68.49 kg Arlet Suppan SALES SUPPORT REP.DATER ASSEMBLER Work Phone: [facility] 05-11-2025 09:29-0400 Diastolic blood pressure 82 mm[Hg] Arlet Suppan SALES SUPPORT REP.DATER ASSEMBLER Work Phone: [facility] 05-11-2025 09:29-0400 Heart rate 67 /min Arlet Suppan SALES SUPPORT REP.DATER ASSEMBLER Work Phone: [facility] 05-11-2025 09:29-0400 SaO2% (BldA) [Mass fraction] 98 % Arlet Suppan SALES SUPPORT REP.DATER ASSEMBLER Work Phone: [facility] 05-11-2025 09:29-0400 Systolic blood pressure 136 mm[Hg] Arlet Suppan SALES SUPPORT REP.DATER ASSEMBLER Work Phone: [facility] 03-29-2025 22:53-0400 Body temperature 98.6 [degF] Dr. Justus Mcdonald MD Work Phone: [facility] 03-29-2025 22:53-0400 Diastolic blood pressure 84 mm[Hg] Dr. Justus Mcdonald MD Work Phone: 2(130)415-459573 [place] [address] 03-29-2025 22:53-0400 Heart rate 78 /min Dr. Justus Mcdonald MD Work Phone: 9(700)943-083636 [place] [address] 03-29-2025 22:53-0400 Respiratory rate 16 /min Dr. Justus Mcdonald MD Work Phone: 7(242)968-319436 [place] [address] 03-29-2025 22:53-0400 SaO2% (BldA) [Mass fraction] 100 % Dr. Justus Mcdonald MD Work Phone: 3(416)568-631736 [place] [address] 03-29-2025 22:53-0400 Systolic blood pressure 132 mm[Hg] Dr. Justus Mcdonald MD Work Phone: 4(024)917-089336 [place] [address] 03-29-2025 20:22-0400 Body height 162.[address] Justus Mcdonald MD Work Phone: 9(426)748-279736 [place] [address] 03-29-2025 20:22-0400 Body mass index (BMI) [Ratio] 26.2 kg/m2 Dr. Justus Mcdonald MD Work Phone: 2(198)455-984136 [place] [address] 03-29-2025 20:22-0400 Body weight 69.[address] Justus Mcdonald MD Work Phone: 3(784)043-120136 [place] [address] 01-07-2025 10:34-0500 Body mass index (BMI) [Ratio] 27.46 kg/m2 Arlet Suppmoises SALES SUPPORT REP.DATER ASSEMBLER Work Phone: 6(723)286-133575 [place] [address] 01-07-2025 10:34-0500 Body temperature 97.7 [degF] Arlet Suppan SALES SUPPORT REP.DATER ASSEMBLER Work Phone: 5(232)209-231275 [place] [address] 01-07-2025 10:34-0500 Body weight 70.31 kg Arlet Suppan SALES SUPPORT REP.DATER ASSEMBLER Work Phone: 7(770)561-534475 [place] [address] 01-07-2025 10:34-0500 Diastolic blood pressure 80 mm[Hg] Arlet Suppan SALES SUPPORT REP.DATER ASSEMBLER Work Phone: 5(777)662-976675 [place] [address] 01-07-2025 10:34-0500 Heart rate 69 /min Arlet Suppan SALES SUPPORT REP.DATER ASSEMBLER Work Phone: [facility] 01-07-2025 10:34-0500 SaO2% (BldA) [Mass fraction] 98 % Arlet Grove SALES SUPPORT REP.DATER ASSEMBLER Work Phone: [facility] 01-07-2025 10:34-0500 Systolic blood pressure 128 mm[Hg] Arlet Grove SALES SUPPORT REP.DATER ASSEMBLER Work Phone: [facility] 01-04-2025 10:02-0500 Body mass index (BMI) [Ratio] 27.26 kg/m2 Nelson Mi MD Work Phone: [facility] 01-04-2025 10:02-0500 Body temperature 97.2 [degF] Nelson Mi MD Work Phone: [facility] 01-04-2025 10:02-0500 Body weight 69.8 kg Nelson Mi MD Work Phone: [facility] 01-04-2025 10:02-0500 Diastolic blood pressure 82 mm[Hg] Nelson Mi MD Work Phone: [facility] 01-04-2025 10:02-0500 Heart rate 70 /min Nelson Mi MD Work Phone: [facility] 01-04-2025 10:02-0500 Respiratory rate 16 /min Nelson Mi MD Work Phone: [facility] 01-04-2025 10:02-0500 SaO2% (BldA) [Mass fraction] 99 % Nelson Mi MD Work Phone: [facility] 01-04-2025 10:02-0500 Systolic blood pressure 126 mm[Hg] Nelson Mi MD Work Phone: [facility] 10-06-2024 11:44-0500 Body mass index (BMI) [Ratio] 27.53 kg/m2 Lisa PUENTES Work Phone: [facility] 10-06-2024 11:44-0500 Body temperature 98.6 [degF] Krislyn Aberegg PA Work Phone: [facility] 10-06-2024 11:44-0500 Body weight 70.5 kg Krislyn Aberegg PA Work Phone: [facility] 10-06-2024 11:44-0500 Diastolic blood pressure 78 mm[Hg] Krislyn Aberegg PA Work Phone: [facility] 10-06-2024 11:44-0500 Heart rate 70 /min Krislyn Aberegg PA Work Phone: [facility] 10-06-2024 11:44-0500 Respiratory rate 18 /min Krislyn Aberegg PA Work Phone: [facility] 10-06-2024 11:44-0500 SaO2% (BldA) [Mass fraction] 97 % Krislyn Aberegg PA Work Phone: [facility] 10-06-2024 11:44-0500 Systolic blood pressure 118 mm[Hg] Krislyn Aberegg PA Work Phone: [facility] 09-14-2024 10:09-0500 Body mass index (BMI) [Ratio] 27.34 kg/m2 Rolly Moomaw SALES SUPPORT REP.DATER ASSEMBLER Work Phone: [facility] 09-14-2024 10:09-0500 Body temperature 99.19 [degF] Rolly Moomaw SALES SUPPORT REP.DATER ASSEMBLER Work Phone: [facility] 09-14-2024 10:09-0500 Body weight 70 kg Rolly Moomaw SALES SUPPORT REP.DATER ASSEMBLER Work Phone: [facility] 09-14-2024 10:09-0500 Diastolic blood pressure 76 mm[Hg] Rolly Moomaw SALES SUPPORT REP.DATER ASSEMBLER Work Phone: [facility] 09-14-2024 10:09-0500 Heart rate 68 /min Rolly Moomaw SALES SUPPORT REP.DATER ASSEMBLER Work Phone: [facility] 09-14-2024 10:09-0500 Respiratory rate 14 /min Rolly Moomaw SALES SUPPORT REP.DATER ASSEMBLER Work Phone: [facility] 09-14-2024 10:09-0500 SaO2% (BldA) [Mass fraction] 98 % Rolly Moomaw SALES SUPPORT REP.DATER ASSEMBLER Work Phone: [facility] 09-14-2024 10:09-0500 Systolic blood pressure 118 mm[Hg] Rolly Moomaw SALES SUPPORT REP.DATER ASSEMBLER Work Phone: [facility] 06-29-2024 10:10-0400 Diastolic blood pressure 86 mm[Hg] Amber Haagen SALES SUPPORT REP.DATER ASSEMBLER Work Phone: [facility] 06-29-2024 10:10-0400 Heart rate 72 /min Amber Haagen SALES SUPPORT REP.DATER ASSEMBLER Work Phone: [facility] 06-29-2024 10:10-0400 Respiratory rate 16 /min Amber Haagen SALES SUPPORT REP.DATER ASSEMBLER Work Phone: [facility] 06-29-2024 10:10-0400 SaO2% (BldA) [Mass fraction] 97 % Amber Haagen SALES SUPPORT REP.DATER ASSEMBLER Work Phone: [facility] 06-29-2024 10:10-0400 Systolic blood pressure 134 mm[Hg] Amber Haagen SALES SUPPORT REP.DATER ASSEMBLER Work Phone: [facility] 06-15-2024 14:28-0400 Body height 160 cm Justus Mcdonald MD Work Phone: [facility] 06-15-2024 14:28-0400 Body mass index (BMI) [Ratio] 26.39 kg/m2 Justus Mcdonald MD Work Phone: [facility] 06-15-2024 14:28-0400 Body weight 67.59 kg Justus Mcdonald MD Work Phone: [facility] 06-15-2024 14:28-0400 Diastolic blood pressure 89 mm[Hg] Justus Mcdonald MD Work Phone: [facility] 06-15-2024 14:28-0400 Heart rate 67 /min Justus Mcdonald MD Work Phone: [facility] 06-15-2024 14:28-0400 Systolic blood pressure 140 mm[Hg] Justus Mcdonald MD Work Phone: [facility] 02-26-2024 11:12-0400 Body weight 67.04 kg Courtney Kellerer PA-C Work Phone: [facility] 02-26-2024 11:12-0400 Diastolic blood pressure 74 mm[Hg] Courtney Queener PA-C Work Phone: [facility] 02-26-2024 11:12-0400 Heart rate 71 /min Courtney Queener PA-C Work Phone: [facility] 02-26-2024 11:12-0400 Respiratory rate 18 /min Courtney Queener PA-C Work Phone: [facility] 02-26-2024 11:12-0400 SaO2% (BldA) [Mass fraction] 98 % Courtney Kellerer PA-C Work Phone: [facility] 02-26-2024 11:12-0400 Systolic blood pressure 109 mm[Hg] Courtney Queener PA-C Work Phone: [facility] 01-09-2024 07:13-0500 Body temperature 100.4 [degF] Nina Athy PA-C Work Phone: [facility] 01-09-2024 07:13-0500 Body weight 65.77 kg Nina Athy PA-C Work Phone: [facility] 01-09-2024 07:13-0500 Diastolic blood pressure 82 mm[Hg] Nina Athy PA-C Work Phone: [facility] 01-09-2024 07:13-0500 Heart rate 80 /min Nina Athy PA-C Work Phone: [facility] 01-09-2024 07:13-0500 Respiratory rate 18 /min Nina Athy PA-C Work Phone: [facility] 01-09-2024 07:13-0500 SaO2% (BldA) [Mass fraction] 100 % Nina Blevinsy PA-C Work Phone: [facility] 01-09-2024 07:13-0500 Systolic blood pressure 119 mm[Hg] Nina Blevinsy PA-C Work Phone: [facility] 09-24-2023 15:37-0500 Body weight 66.13 kg Courtney Kellerer PA-C Work Phone: [facility] 09-24-2023 15:37-0500 Diastolic blood pressure 76 mm[Hg] Courtney Kellerer PA-C Work Phone: [facility] 09-24-2023 15:37-0500 Heart rate 77 /min Courtney Kellerer PA-C Work Phone: [facility] 09-24-2023 15:37-0500 Respiratory rate 18 /min Courtney Kellerer PA-C Work Phone: [facility] 09-24-2023 15:37-0500 SaO2% (BldA) [Mass fraction] 100 % Courtney Kellerer PA-C Work Phone: [facility] 09-24-2023 15:37-0500 Systolic blood pressure 137 mm[Hg] Courtney Kellerer PA-C Work Phone: [facility] 08-24-2023 08:16-0400 Body temperature 99.3 [degF] Lucy Ross APRN.DATER ASSEMBLER Work Phone: [facility] 08-24-2023 08:16-0400 Body weight 66.22 kg Lucy Ross APRN.DATER ASSEMBLER Work Phone: [facility] 08-24-2023 08:16-0400 Diastolic blood pressure 89 mm[Hg] Lucy Ross APRN.DATER ASSEMBLER Work Phone: [facility] 08-24-2023 08:16-0400 Heart rate 74 /min Lucy Ross APRN.DATER ASSEMBLER Work Phone: [facility] 08-24-2023 08:16-0400 Respiratory rate 20 /min Lucy Ross APRN.DATER ASSEMBLER Work Phone: [facility] 08-24-2023 08:16-0400 SaO2% (BldA) [Mass fraction] 99 % Lucy Ross APRN.DATER ASSEMBLER Work Phone: [facility] 08-24-2023 08:16-0400 Systolic blood pressure 167 mm[Hg] Lucy Ross APRN.DATER ASSEMBLER Work Phone: [facility] 08-09-2023 13:11-0400 Body weight 65.41 kg NA Vital PA-C Work Phone: [facility] 08-09-2023 13:11-0400 Diastolic blood pressure 78 mm[Hg] NA Vital PA-C Work Phone: [facility] 08-09-2023 13:11-0400 Heart rate 68 /min NA Vital PA-C Work Phone: [facility] 08-09-2023 13:11-0400 Respiratory rate 16 /min NA Vital PA-C Work Phone: [facility] 08-09-2023 13:11-0400 SaO2% (BldA) [Mass fraction] 99 % NA Vital PA-C Work Phone: [facility] 08-09-2023 13:11-0400 Systolic blood pressure 118 mm[Hg] NA Vital PA-C Work Phone: [facility] 06-11-2023 12:37-0400 Diastolic blood pressure 84 mm[Hg] Courtney Queener PA-C Work Phone: [facility] 06-11-2023 12:37-0400 Heart rate 73 /min Courtney Queener PA-C Work Phone: [facility] 06-11-2023 12:37-0400 Systolic blood pressure 120 mm[Hg] Courtney Queener PA-C Work Phone: [facility] 06-11-2023 12:31-0400 Body temperature 97.39 [degF] Courtney Kellerer PA-C Work Phone: [facility] 06-11-2023 12:31-0400 Body weight 67.86 kg Courtney Anderson PA-C Work Phone: [facility] 06-11-2023 12:31-0400 Respiratory rate 18 /min Courtney Anderson PA-C Work Phone: [facility] 06-11-2023 12:31-0400 SaO2% (BldA) [Mass fraction] 98 % Courtney Anderson PA-C Work Phone: [facility] 05-20-2023 09:14-0400 Body weight 68.04 kg Justus Mcdonald MD Work Phone: [facility] 05-20-2023 09:14-0400 Diastolic blood pressure 72 mm[Hg] Justus Mcdonald MD Work Phone: [facility] 05-20-2023 09:14-0400 Heart rate 70 /min Justus Mcdonald MD Work Phone: [facility] 05-20-2023 09:14-0400 SaO2% (BldA) [Mass fraction] 98 % Justus Mcdonald MD Work Phone: [facility] 05-20-2023 09:14-0400 Systolic blood pressure 122 mm[Hg] Justus Mcdonald MD Work Phone: [facility] 05-07-2023 11:09-0400 Body temperature 98.2 [degF] Roger Russelli DO Work Phone: [facility] 05-07-2023 11:09-0400 Body weight 69.63 kg Roger Masci DO Work Phone: [facility] 05-07-2023 11:09-0400 Diastolic blood pressure 81 mm[Hg] Roger Masci DO Work Phone: [facility] 05-07-2023 11:09-0400 Heart rate 60 /min Roger Yvonnei DO Work Phone: [facility] 05-07-2023 11:09-0400 SaO2% (BldA) [Mass fraction] 100 % Roger Russelli DO Work Phone: [facility] 05-07-2023 11:09-0400 Systolic blood pressure 138 mm[Hg] Roger Masci DO Work Phone: [facility] 03-14-2023 10:59-0400 Body temperature 98.4 [degF] Krislyn Aberegg PA Work Phone: [facility] 03-14-2023 10:59-0400 Body weight 71.03 kg Krislyn Aberegg PA Work Phone: [facility] 03-14-2023 10:59-0400 Diastolic blood pressure 76 mm[Hg] Krislyn Aberegg PA Work Phone: [facility] 03-14-2023 10:59-0400 Heart rate 58 /min Krislyn Aberegg PA Work Phone: [facility] 03-14-2023 10:59-0400 Respiratory rate 18 /min Krislyn Aberegg PA Work Phone: [facility] 03-14-2023 10:59-0400 SaO2% (BldA) [Mass fraction] 98 % Krislyn Aberegg PA Work Phone: [facility] 03-14-2023 10:59-0400 Systolic blood pressure 128 mm[Hg] Krislyn Aberegg PA Work Phone: [facility] 03-08-2023 13:29-0400 Body height 162.5 cm Roger Masci DO Work Phone: [facility] 03-08-2023 13:29-0400 Body temperature 99.5 [degF] Roger Masci DO Work Phone: [facility] 03-08-2023 13:29-0400 Body weight 71.67 kg Roger Masci DO Work Phone: [facility] 03-08-2023 13:29-0400 Diastolic blood pressure 76 mm[Hg] Roger Masci DO Work Phone: [facility] 04-28-2023 13:29-0400 Heart rate 58 /min Roger Unger DO Work Phone: [facility] 03-08-2023 13:29-0400 SaO2% (BldA) [Mass fraction] 95 % Roger Unger DO Work Phone: [facility] 03-08-2023 13:29-0400 Systolic blood pressure 116 mm[Hg] Roger Unger DO Work Phone: [facility] 03-06-2023 14:08-0400 Body temperature 98.1 [degF] Treatment Wstr Work Phone: [facility] 03-06-2023 14:08-0400 Diastolic blood pressure 68 mm[Hg] Treatment Wstr Work Phone: [facility] 03-06-2023 14:08-0400 Heart rate 55 /min Treatment Wstr Work Phone: [facility] 03-06-2023 14:08-0400 Systolic blood pressure 138 mm[Hg] Treatment Wstr Work Phone: [facility] 02-25-2023 13:47-0400 Body temperature 97.7 [degF] Treatment Wstr Work Phone: [facility] 02-25-2023 13:47-0400 Diastolic blood pressure 68 mm[Hg] Treatment Wstr Work Phone: [facility] 02-25-2023 13:47-0400 Heart rate 58 /min Treatment Wstr Work Phone: [facility] 02-25-2023 13:47-0400 SaO2% (BldA) [Mass fraction] 96 % Treatment Wstr Work Phone: [facility] 02-25-2023 13:47-0400 Systolic blood pressure 128 mm[Hg] Treatment Wstr Work Phone: [facility] 02-21-2023 14:22-0400 Body temperature 98.49 [degF] Treatment Wstr Work Phone: [facility] 02-21-2023 14:22-0400 Diastolic blood pressure 61 mm[Hg] Treatment Wstr Work Phone: [facility] 02-21-2023 14:22-0400 Heart rate 66 /min Treatment Wstr Work Phone: [facility] 02-21-2023 14:22-0400 Systolic blood pressure 122 mm[Hg] Treatment Wstr Work Phone: [facility] 02-07-2023 15:38-0400 Diastolic blood pressure 74 mm[Hg] Treatment Wstr Work Phone: [facility] 02-07-2023 15:38-0400 Heart rate 66 /min Treatment Wstr Work Phone: [facility] 02-07-2023 15:38-0400 Systolic blood pressure 126 mm[Hg] Treatment Wstr Work Phone: [facility] 02-07-2023 14:53-0400 Body temperature 98.01 [degF] Treatment Wstr Work Phone: [facility] 02-07-2023 14:53-0400 Respiratory rate 20 /min Treatment Wstr Work Phone: [facility] 02-04-2023 15:16-0400 Body height 163 cm NA Vital PA-C Work Phone: [facility] 02-04-2023 15:16-0400 Body weight 75.3 kg NA Vital PA-C Work Phone: [facility] 02-04-2023 15:16-0400 Diastolic blood pressure 72 mm[Hg] NA Vital PA-C Work Phone: [facility] 02-04-2023 15:16-0400 Heart rate 62 /min NA Vital PA-C Work Phone: [facility] 02-04-2023 15:16-0400 Respiratory rate 16 /min NA Vital PA-C Work Phone: [facility] 02-04-2023 15:16-0400 SaO2% (BldA) [Mass fraction] 99 % NA Vital PA-C Work Phone: [facility] 02-04-2023 15:16-0400 Systolic blood pressure 120 mm[Hg] JORGE LUIS Vital PA-C Work Phone: [facility] 01-29-2023 15:23-0400 Body height 162.6 cm Pearl Segundo MD Work Phone: [facility] 01-29-2023 15:23-0400 Body temperature 98.01 [degF] Pearl Segundo MD Work Phone: [facility] 01-29-2023 15:23-0400 Body weight 74.39 kg Pearl Segundo MD Work Phone: [facility] 01-29-2023 15:23-0400 Diastolic blood pressure 73 mm[Hg] Pearl Segundo MD Work Phone: [facility] 01-29-2023 15:23-0400 Heart rate 60 /min Pearl Segundo MD Work Phone: [facility] 01-29-2023 15:23-0400 Systolic blood pressure 124 mm[Hg] Pearl Segundo MD Work Phone: [facility] 12-03-2022 13:38-0500 Diastolic blood pressure 100 mm[Hg] Amber Habreanna SALES SUPPORT REP.DATER ASSEMBLER Work Phone: [facility] 12-03-2022 13:38-0500 Heart rate 67 /min Amber Haagen SALES SUPPORT REP.DATER ASSEMBLER Work Phone: [facility] 12-03-2022 13:38-0500 Respiratory rate 18 /min Amber Mooreagen SALES SUPPORT REP.DATER ASSEMBLER Work Phone: [facility] 12-03-2022 13:38-0500 SaO2% (BldA) [Mass fraction] 97 % Amber Haagen SALES SUPPORT REP.DATER ASSEMBLER Work Phone: [facility] 12-03-2022 13:38-0500 Systolic blood pressure 160 mm[Hg] Amber Haagen SALES SUPPORT REP.DATER ASSEMBLER Work Phone: [facility] 11-27-2022 08:58-0500 Body height 163.8 cm Eva Kalka PA-C Work Phone: [facility] 11-27-2022 08:58-0500 Body weight 78.16 kg Eva Kalka PA-C Work Phone: [facility] 11-27-2022 08:58-0500 Diastolic blood pressure 72 mm[Hg] Eva Kalka PA-C Work Phone: [facility] 11-27-2022 08:58-0500 Heart rate 89 /min Eva Kalka PA-C Work Phone: [facility] 11-27-2022 08:58-0500 Systolic blood pressure 122 mm[Hg] Eva Kalka PA-C Work Phone: [facility] 01-29-2022 11:32-0400 Diastolic blood pressure 78 mm[Hg] Aida Villasenor SALES SUPPORT REP.DATER ASSEMBLER Work Phone: [facility] 01-29-2022 11:32-0400 Systolic blood pressure 146 mm[Hg] Aida Villasenor SALES SUPPORT REP.DATER ASSEMBLER Work Phone: [facility] 01-29-2022 11:30-0400 Body height 164 cm Aida Villasenor SALES SUPPORT REP.DATER ASSEMBLER Work Phone: [facility] 01-29-2022 11:30-0400 Body weight 69.85 kg Aida Villasenor SALES SUPPORT REP.DATER ASSEMBLER Work Phone: [facility] 01-29-2022 11:30-0400 Heart rate 99 /min Aida Villasenor SALES SUPPORT REP.DATER ASSEMBLER Work Phone: [facility] 01-29-2022 11:30-0400 SaO2% (BldA) [Mass fraction] 99 % Aida Villasenor SALES SUPPORT REP.DATER ASSEMBLER Work Phone: [facility] Encounters Encounter Date Encounter Type Care Provider Facility Start: 07-08-2025 End: 07-08-2025 Refill Justus Mcdonald MD Work Phone: [facility] [place] Comment on above: Refill Request Start: 07-07-2025 End: 07-07-2025 Emergency department patient visit Dr. Justus Mcdonald MD Work Phone: -Emergency Department Work Phone: Start: 07-07-2025 End: 07-07-2025 Patient encounter procedure Justus Mcdonald MD Work Phone: [facility] Comment on above: Pain of left lower e xtremity (Primary Dx); Factor V Leiden (HCC); History of pulmonary embolism Start: 07-07-2025 End: 07-07-2025 ambulatory JUSTUS MCDONALD Facility:[facility] Start: 07-06-2025 End: 07-06-2025 Follow-up encounter [place] SALES SUPPORT REP.DATER ASSEMBLER Work Phone: [facility] Start: 07-05-2025 End: 07-05-2025 ambulatory ARLET Barker SUPPMOISES Facility:[facility] Start: 06-07-2025 End: 06-08-2025 Refill Justus Mcdonald MD Work Phone: [facility] Comment on above: Refill Request Start: 05-11-2025 End: 05-11-2025 Patient encounter procedure [place] SALES SUPPORT REP.DATER ASSEMBLER Work Phone: [facility] Comment on above: Migraine without aur a and without status migrainosus, not intractable (Primary Dx); Anxiety; Mixed hyperlipidemia; Gastroesophageal reflux disease without esophagitis; Factor V Leiden (HCC); Nausea; Screening for depression; Wellness examination Start: 05-11-2025 End: 05-11-2025 Patient encounter status [place] SALES SUPPORT REP.DATER ASSEMBLER Work Phone: [facility] Start: 05-11-2025 End: 05-11-2025 ambulatory ARLET A SUPPAN Facility:[facility] Start: 05-11-2025 Encounter for genera l adult medical examination without abnormal findings ARLET GROVE [facility] Start: 03-29-2025 End: 03-29-2025 Emergency department patient visit Dr. Justus Mcdonald MD Work Phone: -Emergency Department Work Phone: Start: 03-10-2025 End: 03-10-2025 Telephone encounter Justus Mcdonald MD Work Phone: [facility] Comment on above: Forms Start: 03-09-2025 End: 03-09-2025 Telephone encounter Justus Mcdonald MD Work Phone: [facility] Comment on above: Letter Start: 03-02-2025 End: 03-02-2025 Refill Justus Mcdonald MD Work Phone: [facility] Comment on above: Refill Request Start: 01-07-2025 End: 01-07-2025 Office outpatient visit 15 minutes [place] SALES SUPPORT REP.DATER ASSEMBLER Work Phone: [facility] [place] Comment on above: Acute bronchitis, un specified organism (Primary Dx) Start: 01-07-2025 End: 01-07-2025 ambulatory ARLET A RADHAAN Facility:[facility] Start: 01-04-2025 End: 01-04-2025 Subsequent hospital visit by physician Xr [facility] [place] Work Phone: Radiology Comment on above: Subacute cough [R05. 2] Start: 01-04-2025 End: 01-04-2025 ambulatory JUSTUS MCDONALD Facility:[facility] Start: 01-04-2025 End: 01-04-2025 Office outpatient visit 25 minutes Nelson Mi MD Work Phone: [facility] Comment on above: Subacute cough (Prim jaimie Dx) Start: 10-06-2024 End: 10-06-2024 Subsequent hospital visit by physician Xr [facility] [place] Work Phone: Radiology Comment on above: Acute cough [R05.1] Start: 10-06-2024 End: 10-06-2024 ambulatory JUSTUS HARRY Facility:[facility] Start: 10-06-2024 End: 10-06-2024 Patient encounter procedure Lisa PUENTES Work Phone: [facility] Comment on above: Acute cough (Primary Dx); URI, acute Start: 09-18-2024 End: 09-18-2024 Unlisted evaluation and management service Amber Lenz APRN.DATER ASSEMBLER Work Phone: [facility] [place] Comment on above: Patient left without being seen (Primary Dx) Start: 09-18-2024 End: 09-18-2024 ambulatory AMBER LENZ Facility:[facility] Start: 09-14-2024 End: 09-14-2024 ambulatory JUSTUS MCDONALD Facility:[facility] Start: 09-14-2024 End: 09-14-2024 Patient encounter procedure Rolly Keen SALES SUPPORT REP.DATER ASSEMBLER Work Phone: [facility] Comment on above: COVID-19 (Primary Dx ) Start: 08-28-2024 End: 08-28-2024 ambulatory [facility] Nurse [place] Work Phone: [facility] [place] Start: 08-28-2024 End: 08-28-2024 Patient encounter procedure Immunization [facility] Nurse [place] Work Phone: [facility] [place] Start: 08-12-2024 End: 08-28-2024 Refill Courtney Anderson PA-C Work Phone: Neurology Comment on above: Refill Request Start: 07-29-2024 End: 07-29-2024 Refill Justus Mcdonald MD Work Phone: [facility] [place] Comment on above: Refill Request Start: 07-22-2024 End: 07-22-2024 ambulatory Kenyon PUENTES Facility:[facility] Start: 06-30-2024 End: 09-04-2024 Telephone encounter Amber Lenz APRN.DATER ASSEMBLER Work Phone: [facility] [place] Comment on above: Results Start: 06-29-2024 End: 06-29-2024 Office outpatient visit 25 minutes Amber Lenz APRN.DATER ASSEMBLER Work Phone: [facility] [place] Comment on above: Anxiety (Primary Dx) ; Hyperlipidemia, unspecified hyperlipidemia type; Chronic superficial gastritis without bleeding Start: 06-16-2024 Telephone encounter Justus Mcdonald MD Work Phone: [facility] [place] Comment on above: Results Start: 06-15-2024 End: 06-15-2024 Patient encounter procedure Justus Mcdonald MD Work Phone: [facility] [place] Comment on above: Epigastric pain (Brit arturo Dx); Heartburn; Chronic superficial gastritis without bleeding; Black stool; Anxiety Start: 06-15-2024 End: 06-15-2024 ambulatory Nurse Intm/Famp Triage [facility] Work Phone: Nurse Phone Triage Comment on above: black stools Start: 06-05-2024 Refill Eva PUENTES-C Work Phone: [facility] [place] Comment on above: Refill Request Start: 04-01-2024 ambulatory Justus Mcdonald MD Work Phone: Internal Medicine [facility] Start: 02-26-2024 End: 02-26-2024 Patient encounter procedure Courtney PUENTES-C Work Phone: Neurology Comment on above: Headache, unspecifie d headache type (Primary Dx); Migraine without aura and without status migrainosus, not intractable Start: 01-30-2024 Telephone encounter Courtney PUENTES-C Work Phone: Neurology Comment on above: mdication problem Start: 01-09-2024 End: 01-09-2024 Patient encounter procedure Nina PUENTES-C Work Phone: [facility] Comment on above: Acute non-recurrent pansinusitis (Primary Dx) Start: 09-24-2023 End: 09-24-2023 Patient encounter procedure Courtney PUENTES-Shaggy Work Phone: Neurology Comment on above: Headache, unspecifie d headache type (Primary Dx); Migraine without aura and without status migrainosus, not intractable Start: 09-19-2023 Telephone encounter Justus Mcdonald MD Work Phone: [facility] [place] Comment on above: Medication Request Start: 08-30-2023 Telephone encounter Justus Mcdonald MD Work Phone: [facility] [place] Comment on above: Medical Clearance Start: 08-25-2023 Telephone encounter Allison Chen APRN.CNP Work Phone: [facility] Comment on above: Patient Question Start: 08-24-2023 End: 08-24-2023 Patient encounter procedure Lucy Rex TRAMMELL.DATER ASSEMBLER Work Phone: [facility] Comment on above: Rhinosinusitis (Prim jaimie Dx) Start: 08-15-2023 Telephone encounter Truong Hogan ezio TRAMMELL.DATER ASSEMBLER Work Phone: [facility] Comment on above: Results Start: 08-09-2023 End: 08-09-2023 Patient encounter procedure Luis Trent Vital PA-C Work Phone: [facility] [place] Comment on above: Microhematuria (Prim jaimie Dx); Hyperlipidemia, unspecified hyperlipidemia type; Iron deficiency anemia due to chronic blood loss; Factor V Leiden (HCC); Dizziness; Globus sensation; Epigastric pain; Chronic superficial gastritis without bleeding; Esophageal dysphagia; Hiatal hernia; Palpitations; Anxiety; Other migraine without status migrainosus, not intractable; TMJ syndrome Start: 06-12-2023 Telephone encounter Courtney muhammad PA-C Work Phone: Neurology Comment on above: Insurance Authorizat ion [facility] Start: 06-11-2023 End: 06-11-2023 Patient encounter procedure Courtney Anderson PA-C Work Phone: Neurology Comment on above: Migraine without aur a and without status migrainosus, not intractable (Primary Dx); Headache, unspecified headache type; Vertigo Start: 06-07-2023 Telephone encounter Justus Mcdonald MD Work Phone: [facility] [place] Comment on above: MRI Brain appeal Start: 05-30-2023 Telephone encounter [facility] Comment on above: Patient Update (Aaron er needs sent this am) Start: 05-28-2023 Refill Eva Morton PA-C Work Phone: [facility] [place] Comment on above: Refill Request Start: 05-20-2023 End: 05-20-2023 Patient encounter procedure Justus Mcdonald MD Work Phone: [facility] Comment on above: Other migraine witho ut status migrainosus, not intractable (Primary Dx); Daily headache; Motion sickness, subsequent encounter; Anxiety; Hot flashes Start: 05-17-2023 Telephone encounter Justus Mcdonald MD Work Phone: [facility] Comment on above: Patient Update Start: 05-16-2023 ambulatory Amber Lenz MARTIN Work Phone: [facility] Comment on above: Meclizine 12.5 mg Start: 05-07-2023 End: 05-07-2023 ambulatory Roger Unger DO Work Phone: Hematology/Oncology Comment on above: Iron deficiency anem ia due to chronic blood loss (Primary Dx); Factor V Leiden (HCC) Start: 05-07-2023 End: 05-07-2023 Patient encounter procedure Roger Unger DO Work Phone: [facility] Start: 05-06-2023 Telephone encounter Roger john DO Work Phone: Hematology/Oncology Comment on above: Appointment Start: 03-19-2023 Telephone encounter Georgi Salcido MD Work Phone: General Surgery Comment on above: 04/18/2023 colon/egd a sc Start: 03-14-2023 End: 03-14-2023 Subsequent hospital visit by physician Xr [facility] [place] Work Phone: Radiology Comment on above: Acute right-sided th oracic back pain [M54.6] Start: 03-14-2023 End: 03-14-2023 Patient encounter procedure Lisa PUENTES Work Phone: [facility] Comment on above: Acute right-sided th oracic back pain (Primary Dx); Rib pain on right side Start: 03-08-2023 End: 03-08-2023 ambulatory Roger Unger DO Work Phone: Hematology/Oncology Comment on above: Iron deficiency anem ia due to chronic blood loss (Primary Dx); Factor V Leiden (HCC) Start: 03-08-2023 End: 03-08-2023 Patient encounter procedure Roger Mj Cornel OS[place]IO Work Phone: [place] [facility] Start: 03-06-2023 End: 03-06-2023 ambulatory Treatment Rm 13 Jorge [facility] Work Phone: Hematology/Oncology Comment on above: Iron deficiency anem ia due to chronic blood loss (Primary Dx) Start: 02-25-2023 End: 02-25-2023 ambulatory Treatment Rm 13 Jorge [facility] Work Phone: Hematology/Oncology Comment on above: Iron deficiency anem ia due to chronic blood loss (Primary Dx) Start: 02-25-2023 Documentation procedure Mammog anna Coordinator [facility] Start: 02-25-2023 Letter encounter Mammography Coordinator [facility] Start: 02-22-2023 End: 02-22-2023 Subsequent hospital visit by physician Screen Mammo [facility] Mammogram Comment on above: Encounter for screen ing mammogram for breast cancer [Z12.31] Start: 02-21-2023 End: 02-21-2023 ambulatory Treatment Rm 8 [facility] Work Phone: Hematology/Oncology Comment on above: Iron deficiency anem ia due to chronic blood loss (Primary Dx) Start: 02-15-2023 Refill Justus Mcdonald MD Work Phone: [facility] [place] Comment on above: Refill Request Start: 02-14-2023 Telephone encounter Justus Mcdonald MD Work Phone: [facility] [place] Comment on above: Dental office callin g for a medical clearance (Pt is there now for extraction/) Start: 02-07-2023 End: 02-07-2023 ambulatory Treatment Rm 11 Jorge [facility] Work Phone: Hematology/Oncology Comment on above: Iron deficiency anem ia due to chronic blood loss (Primary Dx) Start: 02-04-2023 End: 02-04-2023 Patient encounter procedure Luis Vital PA-C Work Phone: [facility] [place] Comment on above: Wellness examination (Primary Dx); Hyperlipidemia, unspecified hyperlipidemia type; Iron deficiency anemia, unspecified iron deficiency anemia type; Dizziness; Anxiety; Esophageal dysphagia; Hiatal hernia; Globus sensation; Epigastric pain; Factor V Leiden (HCC); Palpitations; Other migraine without status migrainosus, not intractable; Abnormal result on screening urine test; Encounter for screening mammogram for malignant neoplasm of breast; Special screening examination for viral disease; Encounter for hepatitis C virus screening test for high risk patient Start: 02-04-2023 End: 02-04-2023 Patient encounter status Luis Trent Vital PA-C Work Phone: [facility] Start: 01-29-2023 End: 01-29-2023 ambulatory Pearl Segundo MD Work Phone: Hematology/Oncology Comment on above: Iron deficiency anem ia due to chronic blood loss (Primary Dx); Factor V Leiden (HCC) Start: 01-29-2023 End: 01-29-2023 Patient encounter procedure Pearl Segundo MD Work Phone: [facility] Start: 01-25-2023 Telephone encounter Amber carlos APRN.DATER ASSEMBLER Work Phone: [facility] Comment on above: Results Start: 01-02-2023 ambulatory Justus Mcdonald MD Work Phone: Internal Medicine [facility] Start: 12-21-2022 ambulatory Vince Kang MD Work Phone: Ambulatory Surgery Start: 12-04-2022 End: 12-04-2022 ambulatory Ranjit Murguia PT [facility] Comment on above: Acute pain of right knee (Primary Dx) Start: 12-03-2022 Refill Eva Morton PA-C Work Phone: [facility] [place] Comment on above: Refill Request Start: 12-03-2022 End: 12-03-2022 Office outpatient visit 25 minutes Amber Lenz APRN.DATER ASSEMBLER Work Phone: [facility] Comment on above: Acute pain of right knee (Primary Dx) Start: 11-27-2022 End: 11-27-2022 Patient encounter procedure Eva Morton PA-C Work Phone: G[facility]enterology [place] Comment on above: Hiatal hernia with G ERD and esophagitis (Primary Dx); Chronic nausea; Screening for colon cancer; Dyspepsia; Nausea Start: 10-17-2022 Refill Justus Mcdonald MD Work Phone: [facility] [place] Comment on above: Refill Request Start: 08-08-2022 Telephone encounter Justus Mcdonald MD Work Phone: [facility] [place] Comment on above: Insurance Authorizat ion Start: 08-07-2022 Refill Justus Mcdonald MD Work Phone: [facility] [place] Comment on above: Refill Request Start: 06-11-2022 Telephone encounter Aida Villasenor SALES SUPPORT REP.DATER ASSEMBLER Work Phone: Gastroenterology Comment on above: Medication Request Start: 04-09-2022 Refill Aida Villasenor APR N.DATER ASSEMBLER Work Phone: Gastroenterology Comment on above: Refill Request Start: 02-01-2022 Telephone encounter Aida Villasenor SALES SUPPORT REP.DATER ASSEMBLER Work Phone: Gastroenterology Comment on above: Insurance Authorizat ion Start: 01-31-2022 Refill Aida Villasenor APR N.DATER ASSEMBLER Work Phone: Gastroenterology Comment on above: Refill Request Start: 01-29-2022 End: 01-29-2022 Patient encounter procedure Aida Villasenor SALES SUPPORT REP.DATER ASSEMBLER Work Phone: Gastroenterology Comment on above: Gastroesophageal ref lux disease with esophagitis without hemorrhage (Primary Dx) Refill Request Start: 01-29-2022 Telephone encounter Aida Villasenor SALES SUPPORT REP.DATER ASSEMBLER Work Phone: Gastroenterology Comment on above: Medication Problem Start: 01-24-2022 ambulatory Justus Mcdonald MD Work Phone: Internal Medicine [facility] Start: 11-20-2021 Chart Update Homero kern MD Work Phone: [facility] Work Phone: Start: 08-23-2020 End: 08-23-2020 Subsequent hospital visit by physician Xr [facility] [place] Work Phone: Radiology Comment on above: Bilateral hand pain [M79.641, M79.642] Start: 06-02-2018 End: 06-02-2018 Emergency department patient visit PARRIS KNOWLES Facility:[facility] Start: 07-04-2017 Ambulatory Farzana Alexander [facility] Start: 06-04-2017 Ambulatory Sang Sanders [facility] Procedures Date Procedure Procedure Detail Performing Clinician Start: 05-11-2025 Adult depression scr eening assessment [place] SALES SUPPORT REP.DATER ASSEMBLER Work Phone: Start: 03-29-2025 Computed tomography of abdomen and pelvis with intravenous contrast Dr. Justus Mcdonald MD Work Phone: Start: 03-29-[address] Justus Mcdonald MD Work Phone: Start: 01-04-2025 Radiologic exam ches t 2 views Nelson Mi MD Work Phone: Start: 10-06-2024 Radiologic exam ches t 2 views Krisjenifern Antoine Cortes PA Work Phone: Start: 06-29-2024 Lipid 1996 panel - S theresa or Plasma Amber Lenz SALES SUPPORT REP.DATER ASSEMBLER Work Phone: Start: 03-14-2023 Radex ribs uni w/posteroant ch minimum 3 views Krislyn P Aberegg PA Work Phone: Start: 02-22-2023 End: 02-22-2023 Mammography Bulk Order Provider Start: 02-04-2023 Urnls dip stick/tabl et rgnt auto w/o microscopy M Trent Vital PA-C Work Phone: Start: 01-23-2023 Lipid 1996 panel - S theresa or Plasma JORGE LUIS Vital PA-C Work Phone: Start: 04-21-2021 Adult depression scr eening assessment Justus Mcdonald MD Work Phone: Start: 12-15-2020 Mammography Justus Lynch MD Work Phone: Start: 08-23-2020 Radex hand minimum 3 views M Trent Vital PA-C Work Phone: Plan of Treatment Date Care Activity Detail Author Start: 06-29-2033 Urine microalbumin profile DTaP,Tdap,Td Vaccine (3 - Td or Tdap) [facility] Start: 06-29-2029 Lipid panel Lipid Screening [facility] Start: 05-07-[address] [facility] Start: 01-24-2028 Lipid 1996 panel - Serum or Plasma Lipid Screening [facility] Start: 01-24-2028 Lipid panel Lipid Screening [facility] Start: 01-24-2028 LIPID SCREEN LIPID SCREEN [facility] Start: 06-29-2027 Diabetes Screening Diabetes Screenin g [facility] Start: 06-15-2027 Diabetes Screening Diabetes Screenin g [facility] Start: 05-11-2026 Covid-19 Vaccine () Covid-19 Vaccine () [facility] Comment on above: Postponed from 07/12 (Declined at this time) Start: 05-11-2026 Depression Screening Depression Scre ening [facility] Start: 01-23-2026 DIABETES SCREEN DIABETES SCREEN [facility] Start: 01-23-2026 Diabetes Screening Diabetes Screenin g [facility] Start: 07-16-2025 [address]EN L[address]ID SCREEN [facility] Start: 07-12-2025 Influenza vaccination Influenza Vacc ine (#1) [facility] Start: 07-07-2025 [facility] Start: 07-07-2025 End: 07-07-2025 Patient encounter procedure [facility] [place] Comment on above: physical follow up medication Start: 06-28-2025 End: 09-27-2025 [facility] Lab Routine Gastroesophageal reflux disease without esophagitis Nausea Expected: 06/28/2025, Expires: 09/27/2025 [facility] Work Phone: Comment on above: Expected: 06/28/2025 , Expires: 09/27/2025 Start: 06-16-2025 Screening for malign ant neoplasm of colon [facility] Start: 03-29-2025 [facility] Start: 08-10-2024 End: 08-10-2024 Patient encounter procedure 08/10/2024 6:40 PM EDT Office Visit [facility] [place] [address] [place] [address] Amber Lenz APRN.DATER ASSEMBLER [address] [place] [address] 2 week follow up (anxiety/BP) [facility] [place] Comment on above: 2 week follow up (an xiety/BP) Start: 07-12-2024 Covid-19 Vaccine () Covid-19 Vaccine () [facility] Start: 07-12-2024 Covid-19 Vaccine () Covid-19 Vaccine () [facility] Start: 07-12-2024 Influenza vaccination Influenza Vacc ine (#1) [facility] Start: 06-30-2024 End: 06-30-2024 Patient encounter procedure 06/30/2024 3:45 PM EDT Office Visit Neurology [address] [facility] [place] [address] Courtney Anderson PA-C [address] [place] [address] 3 mth follow up [facility] Comment on above: 3 mth follow up Migr rena Start: 06-29-2024 End: 06-29-2024 Patient encounter procedure 06/29/2024 10:20 AM EDT Office Visit [facility] [place] [address] [place] [address] Amber Lenz, VALERI.DATER ASSEMBLER [address] [place] [address] 2 week follow up (anxiety/BP) [facility] [place] Comment on above: 2 week follow up (an xiety/BP) Start: 06-16-2024 End: 06-16-2025 25-hydroxyvitamin D3 [Mass/volume] in Serum or Plasma VITAMIN D 25 HYDROXY Lab Routine Hypercalcemia Hyperkalemia Expected: 06/16/2024, Expires: 06/16/2025 [facility] Work Phone: Comment on above: Expected: 06/16/2024 , Expires: 06/16/2025 Start: 06-16-2024 End: 09-15-2024 Basic metabolic 2000 panel - Serum or Plasma BASIC METABOLIC PANEL Lab Routine Hypercalcemia Hyperkalemia Expected: 06/16/2024, Expires: 09/15/2024 [facility] Comment on above: Expected: 06/16/2024 , Expires: 09/15/2024 Start: 06-16-2024 End: 06-16-2025 Calcium.ionized [Moles/volume] in Blood CALCIUM, IONIZED Lab Routine Hypercalcemia Hyperkalemia Expected: 06/16/2024, Expires: 06/16/2025 [facility] Comment on above: Expected: 06/16/2024 , Expires: 06/16/2025 Start: 06-16-2024 End: 06-16-2025 Parathyrin.intact [Mass/volume] in Serum or Plasma PTH INTACT Lab Routine Hypercalcemia Hyperkalemia Expected: 06/16/2024, Expires: 06/16/2025 [facility] Comment on above: Expected: 06/16/2024 , Expires: 06/16/2025 Start: 06-15-2024 End: 09-14-2024 CBC W Auto Differential panel - Blood [facility] Work Phone: Comment on above: Expected: 06/15/2024 , Expires: 09/14/2024 Start: 06-15-2024 End: 09-14-2024 Comprehensive metabolic 2000 panel - Serum or Plasma [facility] Comment on above: Expected: 06/15/2024 , Expires: 09/14/2024 Start: 06-15-2024 End: 09-14-2024 Lipase [Enzymatic activity/volume] in Serum or Plasma [facility] Comment on above: Expected: 06/15/2024 , Expires: 09/14/2024 Start: 04-20-2024 DIABETES SCREEN DIABETES SCREEN [facility] Start: 02-23-[address] [facility] Start: 02-23-2024 Screening for malign ant neoplasm of breast Mammogram Screening [facility] Start: 02-05-2024 COVID-19 VACCINE (4 - Booster for Pfizer series) COVID-19 VACCINE (4 - Booster for Pfizer series) [facility] Comment on above: Postponed from 10/10 (Declined at this time) Start: 02-05-2024 COVID-19 VACCINE (4 - Pfizer series) COVID-19 VACCINE (4 - Pfizer series) [facility] Comment on above: Postponed from 10/10 (Declined at this time) Start: 11-11-2023 Behavioral Health Screening Behavioral Health Screening [facility] Start: 11-11-2023 Depression Assessment Depression Ass essment [facility] Start: 07-12-2023 Covid-19 Vaccine () Covid-19 Vaccine () [facility] Start: 07-12-2023 Influenza vaccination INFLUENZA (#1) [facility] Start: 05-20-2023 End: 07-20-2023 Estradiol (E2) [Mass/volume] in Serum or Plasma [facility] Work Phone: Comment on above: Expected: 05/20/2023 , Expires: 07/20/2023 Start: 05-20-2023 End: 07-20-2023 Follitropin [Units/volume] in Serum or Plasma [facility] Work Phone: Comment on above: Expected: 05/20/2023 , Expires: 07/20/2023 Start: 05-20-2023 End: 07-20-2023 Lutropin [Units/volume] in Serum or Plasma [facility] Work Phone: Comment on above: Expected: 05/20/2023 , Expires: 07/20/2023 Start: 05-20-2023 End: 07-20-2023 Thyrotropin [Units/volume] in Serum or Plasma [facility] Work Phone: Comment on above: Expected: 05/20/2023 , Expires: 07/20/2023 Start: 05-01-2023 End: 07-01-2023 CBC W Auto Differential panel - Blood CBC + DIFF Lab Routine Iron deficiency anemia due to chronic blood loss Expected: 05/01/2023, Expires: 07/01/2023 [facility] Work Phone: Comment on above: Expected: 05/01/2023 , Expires: 07/01/2023 Start: 05-01-2023 End: 07-01-2023 CELIAC SCREEN WITH REFLEX CELIAC SCREEN WITH REFLEX Lab Routine Iron deficiency anemia due to chronic blood loss Expected: 05/01/2023, Expires: 07/01/2023 [facility] Work Phone: Comment on above: Expected: 05/01/2023 , Expires: 07/01/2023 Start: 05-01-2023 End: 07-01-2023 Ferritin [Mass/volume] in Serum or Plasma FERRITIN BLD Lab Routine Iron deficiency anemia due to chronic blood loss Expected: 05/01/2023, Expires: 07/01/2023 [facility] Work Phone: Comment on above: Expected: 05/01/2023 , Expires: 07/01/2023 Start: 05-01-2023 End: 07-01-2023 Iron and Iron binding capacity panel - Serum or Plasma IRON + TIBC Lab Routine Iron deficiency anemia due to chronic blood loss Expected: 05/01/2023, Expires: 07/01/2023 [facility] Work Phone: Comment on above: Expected: 05/01/2023 , Expires: 07/01/2023 Start: 02-04-2023 End: 04-06-2023 Hepatitis C virus Ab [Presence] in Serum [facility] Work Phone: Comment on above: Expected: 02/04/2023 , Expires: 04/06/2023 Start: 11-11-2022 DEPRESSION ASSESSMENT DEPRESSION ASS ESSMENT [facility] Start: 07-12-2022 Influenza vaccination INFLUENZA (#1) [facility] Start: 04-21-2022 Adult depression screening assessment DEPRESSION SCREENING [facility] Start: 12-16-2021 COVID-19 VACCINE (4 - Booster for Pfizer series) COVID-19 VACCINE (4 - Booster for Pfizer series) [facility] Start: 12-15-[address] [facility] Start: 11-11-2021 DEPRESSION ASSESSMENT DEPRESSION ASS ESSMENT [facility] Start: 10-10-2021 COVID-19 VACCINE (4 - Booster for Pfizer series) COVID-19 VACCINE (4 - Booster for Pfizer series) [facility] Start: 2020 Pneumococcal Vaccine : 50+ (1 of 1 - PCV) Pneumococcal Vaccine: 50+ (1 of 1 - PCV) [facility] Start: 2020 SHINGRIX VACCINE (1 of 2) SHINGRIX VACCINE (1 of 2) [facility] Start: 2015 COLOGUARD (FIT-DNA) COLOGUARD (FIT-D NA) [facility] Start: [address] [facility] Start: 2015 COLORECTAL CANCER SCREENING COLORECTAL CANCER SCREENING [facility] Start: [address] COLONOGRAPHY [facility] Start: 2015 FECAL OCCULT BLOOD FECAL OCCULT BLOO D [facility] Start: 2015 Screening for malign ant neoplasm of colon [facility] Start: 2015 SIGMOIDOSCOPY SIGMOIDOSCOPY [facility] Start: 1989 Hepatitis B Vaccine (1 of 3 - 19+ 3-dose series) Hepatitis B Vaccine (1 of 3 - 19+ 3-dose series) [facility] Start: 1988 Depression Screening Depression Scre ening [facility] Start: 1988 HEPATITIS C SCREENING HEPATITIS C SC MAY [facility] Start: 1970 HEPATITIS B (1 of 3 - 3-dose series) HEPATITIS B (1 of 3 - 3-dose series) [facility] Start: 1970 Hepatitis B Vaccine (1 of 3 - 3-dose series) Hepatitis B Vaccine (1 of 3 - 3-dose series) [facility] Bacteria identified in Urine by Culture URINE CULTURE Microbiology Routine Abnormal result on screening urine test 02/04/2023 4:45 PM EDT [facility] Work Phone: End: 12-27-2023 Gastric emptying imaging study NM GASTRIC EMPTYING SOLID Radiology Routine Chronic nausea Dyspepsia Nausea 1 Occurrences starting 11/27/2022 until 12/27/2023 [facility] Work Phone: Comment on above: 1 Occurrences starti ng 11/27/2022 until 12/27/2023 Hemoglobin.gastroint est inal.lower [Presence] in Stool by Immunoassay IMMUNOCHEMICAL FECAL OCCULT BLOOD TEST Lab Routine Black stool Ordered: 06/15/2024 [facility] Comment on above: Ordered: 06/15/2024 End: 02-01-2024 ASHLEE SCREENING ASHLEE SCREENING Radiology Routine Encounter for screening mammogram for breast cancer 1 Occurrences starting 01/02/2023 until 02/01/2024 [facility] Work Phone: Comment on above: 1 Occurrences starti ng 01/02/2023 until 02/01/2024 End: 03-05-2024 ASHLEE SCREENING ASHLEE SCREENING Radiology Routine Encounter for screening mammogram for malignant neoplasm of breast 1 Occurrences starting 02/04/2023 until 03/05/2024 [facility] Work Phone: Comment on above: 1 Occurrences starti ng 02/04/2023 until 03/05/2024 End: 05-01-2025 MG Breast Screening ASHLEE SCREENING Radiology Routine Encounter for screening mammogram for breast cancer 1 Occurrences starting 04/01/2024 until 05/01/2025 [facility] Work Phone: Comment on above: 1 Occurrences starti ng 04/01/2024 until 05/01/2025 End: 06-18-2024 Mri brain brain stem w/o contrast material MRI BRAIN WO IVCON Radiology Routine Daily headache Motion sickness, subsequent encounter 1 Occurrences starting 05/20/2023 until 06/18/2024 [facility] Work Phone: Comment on above: 1 Occurrences starti ng 05/20/2023 until 06/18/2024 Patient Education [facility] Work Phone: Patient referral [facility] Work Phone: PT PLAN OF CARE CERTIFICATION PT PLAN OF CARE CERTIFICATION Procedures Routine Acute pain of right knee Ordered: 12/07/2022 [facility] Comment on above: Ordered: 12/07/2022 End: 11-27-2023 Screening colonoscopy COLONOSCOPY SCREENING Endoscopy Routine Screening for colon cancer 1 Occurrences starting 11/27/2022 until 11/27/2023 [facility] Work Phone: Comment on above: 1 Occurrences starti ng 11/27/2022 until 11/27/2023 End: 02-23-2023 Screening mammography bi 2-view breast inc cad ASHLEE SCREENING Radiology Routine Encounter for screening mammogram for breast cancer 1 Occurrences starting 01/24/2022 until 02/23/2023 [facility] Work Phone: Comment on above: 1 Occurrences starti ng 01/24/2022 until 02/23/2023 Urinalysis complete panel - Urine URINALYSIS, WITH MICROSCOPIC Lab Routine Abnormal result on screening urine test 02/04/2023 4:26 PM EDT [facility] Work Phone: [facility] Immunizations Immunization Date Immunization Notes Care Provider [facility] 08-28-2024 influenza, seasonal, injectable Immunization [place] Work Phone: [facility] 08-28-2024 influenza virus vaccine, unspecified formulation [place] APRN.CNP Work Phone: [facility] 07-19-2023 influenza, injectabl e, quadrivalent, preservative free JORGE LUIS Vital PA-C Work Phone: [facility] 07-19-2023 influenza virus vaccine, unspecified formulation Eva Morton PA-C Work Phone: [facility] 06-29-2023 tetanus toxoid, reduced diphtheria toxoid, and acellular pertussis vaccine, adsorbed Dr. Justus Mcdonald MD Work Phone: [facility] 07-25-2022 Seasonal, trivalent, recombinant, injectable influenza vaccine, preservative free Justus Mcdonald MD Work Phone: [facility] 11-02-2021 zoster vaccine recombinant Justus Mcdonald MD Work Phone: [facility] 08-05-2021 Seasonal, quadrivalent, recombinant, injectable influenza vaccine, preservative free Justus Mcdonald MD Work Phone: [facility] 08-05-2021 zoster vaccine recombinant Justus Mcdonald MD Work Phone: [facility] 08-19-2020 influenza, injectabl e, quadrivalent, contains preservative Justus Mcdonald MD Work Phone: [facility] 09-04-2019 influenza, injectabl e, quadrivalent, contains preservative Justus Mcdonald MD Work Phone: [facility] 05-07-2019 tetanus toxoid, reduced diphtheria toxoid, and acellular pertussis vaccine, adsorbed Justus Mcdonald MD Work Phone: [facility] 09-30-2018 influenza, injectabl e, quadrivalent, contains preservative Justus Mcdonald MD Work Phone: [facility] 08-25-2017 influenza, seasonal, injectable Justus Mcdonald MD Work Phone: [facility] 10-10-2016 influenza, injectabl e, quadrivalent, preservative free Dr. Justus Mcdonald MD Work Phone: [facility] 10-10-2016 influenza, seasonal, injectable, preservative free Justus Mcdonald MD Work Phone: [facility] 08-15-2015 influenza, seasonal, injectable Justus Mcdonald MD Work Phone: [facility] Work Phone: 08-12-2014 influenza, seasonal, injectable Justus Mcdonald MD Work Phone: [facility] 08-12-2014 tuberculin skin test ; purified protein derivative solution, intradermal Amber Lenz APRN.DATER ASSEMBLER Work Phone: [facility] 12-15-2013 influenza virus vaccine, unspecified formulation Justus Mcdonald MD Work Phone: [facility] Work Phone: 04-11-2001 hepatitis B vaccine, adult dosage [place] SALES SUPPORT REP.DATER ASSEMBLER Work Phone: [facility] 12-12-2000 hepatitis B vaccine, adult dosage [place] SALES SUPPORT REP.DATER ASSEMBLER Work Phone: [facility] 11-11-2000 hepatitis B vaccine, adult dosage [place] SALES SUPPORT REP.DATER ASSEMBLER Work Phone: [facility] Payers Date Payer Category Payer Private Health Insurance [employer] [id number] 2024-Present [phone] [address] [place] [address] Open Access [id number] 2024 Private Health Insurance [id number] 2023 Unknown 2020 Medicaid [facility] MEDICAID [employer] MEDICAID [id number] 2020-Present [phone] [address] [place] [address] Medicaid [id number] 2020 Medicaid [id number] 2018 Self-pay Self-pay [id number] Unknown [id number] Unknown [id number] Unknown [id number] Unknown [id number] Unknown [id number] Worker's Compensation Social History Date Type Detail Facility Start: 11-27-2022 End: 07-07-2025 Tobacco smoking status NHIS Never smoked tobacco [facility] Start: 11-29-2021 End: 07-07-2025 Alcohol intake Current non-drinker of alcohol (finding) [facility] Start: 12-12-2020 History SDOH Alcohol Frequency 2 [facility] Start: 12-12-2020 History SDOH Alcohol Std Drinks 1 [facility] Start: 07-07-2010 History SDOH Alcohol Comment 2x a year [facility] Start: 12-12-2020 History SDOH Social Connections Phone 5 [facility] Start: 12-12-2020 History SDOH Social Connections Get Together [address] [facility] Start: 12-12-2020 History SDOH Social Connections Living [address] [facility] Start: 12-12-[address] [facility] Start: 1970 Sex Assigned At Not on file C [facility] Start: 07-24-2020 End: 01-23-2022 Exposure to SARS-CoV-2 (event) Not sure [facility] Work Phone: Start: 11-27-2022 Tobacco use and exposure Smoke less tobacco non-user [facility] Start: 12-12-2020 End: 03-19-2023 History of Social function [place] [facility] Start: 12-12-2020 End: 03-19-2023 Social connection and isolation panel [facility] Do you belong to any clubs or organizations such as mormonism groups, unions, fraternal or athletic groups, or school groups? No [facility] Are you now , , , , never or living with a partner? [facility] How often to you hav e a drink containing alcohol? Monthly or less [facility] How many standard dr inks containing alcohol do you have on a typical day? [address] [facility] How often do you hav e 6 or more drinks on 1 occasion? Never [facility] How hard is it for y ou to pay for the very basics like food, housing, medical care, and heating Not very hard [facility] Start: 10-12-2012 Adult Depression Scr eening Assessment 0 [facility] Work Phone: Do you feel stress - tense, restless, nervous, or anxious, or unable to sleep at night because your mind is troubled all the time - these days [OSQ] Very much [facility] (I/We) worried amaury er (my/our) food would run out before (I/we) got money to buy more. Never true [facility] Are you now , , , , never or living with a partner? [facility] How often to you hav e a drink containing alcohol? 2-[address] [facility] How hard is it for y ou to pay for the very basics like food, housing, medical care, and heating Hard [facility] In the past 12 month s, was there a time when you were not able to pay the mortgage or rent on time? Yes [facility] Start: 10-09-2016 Alcohol Alcohol [facility] Start: 10-09-2016 Lives Lives [facility] Start: 10-09-2016 Tobacco Use Tobacco Use [facility] Start: 1970 Sex Assigned At Female W [facility] Functional Status Date Assessment Result Facility 03-08-2015 Are you deaf, or do you have serious difficulty hearing No 03/08/2015 11:58 AM Cindy Friend RN No [facility] 03-08-2015 Are you blind, or do you have serious difficulty seeing, even when wearing glasses No 03/08/2015 11:58 AM Cindy Friend RN No [facility] 03-08-2015 Do you have serious difficulty walking or climbing stairs No 03/08/2015 11:58 AM Cindy Friend RN No [facility] 03-08-2015 Do you have difficul ty dressing or bathing No 03/08/2015 11:58 AM Cindy Friend RN No [facility] 03-08-2015 Because of a physica l, mental, or emotional condition, do you have difficulty doing errands alone such as visiting a physician's office or shopping No 03/08/2015 11:58 AM Cindy Friend RN No [facility] Mental Status Date Assessment Result Facility 03-08-2015 Because of a physica l, mental, or emotional condition, do you have serious difficulty concentrating, remembering, or making decisions No 03/08/2015 11:58 AM EDT Cindy Bates RN No [facility] Clinical Notes 07-07-2010 to 07-08-2025 Telephone Encounter - [place] APRN.CNP - 07/08/2025 2:51 PM EDTTelephone Encounter - [place] APRN.CNP - 07/08/2025 2:51 PM EDTPatient Instructions Note Date & Type Note Facility 07-08-2025 Telephone encounter Note Form atting of this note might be different from the original. Ordered for [address] [facility] 07-08-2025 Miscellaneous Notes Formattin g of this note might be different from the original. Ordered for 2 x day Patient calls and states that she take Topiramate twice a day. Patient is only getting 45 tablets. Medication was changed on 05/11/2025 for patient to take medication twice a day (patient was previously take 1/2 tablet in am and 1 tablet at night). Patient asking if provider can send prescription to pharmacy that reflects her taking medication 1 tablet twice a day? Please review and advise, Geena Jimenes RN documented in this encounter [facility] 07-08-2025 Telephone encounter Note Form atting of this note might be different from the original. Patient calls and states that she take Topiramate twice a day. Patient is only getting 45 tablets. Medication was changed on 05/11/2025 for patient to take medication twice a day (patient was previously take 1/2 tablet in am and 1 tablet at night). Patient asking if provider can send prescription to pharmacy that reflects her taking medication 1 tablet twice a day? Please review and advise, Geena Jimenes RN [facility] 07-07-2025 Discharge summary [facility] 07-07-2025 Radiology Diagnostic study note [facility] Imaging Services [address] [address] Venous Duplex Imag/Limited/Uni MR#: [id number] Acct: [id number] Name: ESTUARDO VILLA Rep #: [id number] : 1970 F 54 From: Jeffrey Caruso MD PCP: Dr. Justus Mcdonald MD Status: REG E R Study:Venous Duplex Imag/Limited/Uni Date of Exam: 07/07/25 Exam# [id number] Ordering Dr: Fausto Johnston DO PROCEDURE: LEFT LOWER EXTREMITY VENOUS DUPLEX IMAG/LIMITED/UNI 07/07/2025 REASON FOR EXAM: Left leg pain TECHNIQUE: Left lower extremity venous Doppler ultrasound. COMPARISON: None. FINDINGS: No intraluminal echogenicity to suggest the presence of a deep venous thrombosis. Appropriate respiratory variation, augmentation and venous compression is noted. US/Venous Duplex Imag/Limited/Uni IMPRESSION: No evidence for DVT in the left lower extremity. Reading Location: [facility] CC: Dr. Fausto Johnston DO; Dr. Justus Mcdonald MD ~ Communications Attendant: Signed [facility] 07-07-2025 Instructions Justus Mcdonald MD - 07/07/2025 4:33 PM EDT - Go to the emergency department across the street today for an er evaluation. You may require. duplex ultrasound of your right leg to check for a possible blood clot. - Take the copy of today s clinic note with you so the ER team knows our concerns and can proceed promptly. - If a clot is found, the ER may start you on an oral blood thinner and provide instructions for home treatment. - Follow any additional testing or treatment recommendations given by the ER staff. documented in this encounter [facility] 07-07-2025 Note HNO ID: [id number] Author: JUSTUS MCDONALD MD Service: ? Author Type: Physician Type: Progress Notes Filed: 07/07/2025 17:44 Note Text: The patient is a 54-year-old female with factor V Leiden mutation and prior pulmonary embolism, presenting for evaluation of one week of right leg pain. HPI Left Leg Pain: - Aching pain in the left leg, localized to the anterior thigh, x1 week. - Pain radiates from the thigh to the knee; Estuardo denies pain in the calf or behind the knee. - Describes pain as aching and sharp at times. - Aggravated by palpation and movement. - Denies numbness or tingling. - No known trauma or injury. - Unaure if redness or swelling; unsure about warmth. - Recent travel to Estuardo's son's house, approximately 1.5 hours away, a few weeks ago. - Denies recent long-distance travel or prolonged immobility. Factor V Leiden: - Diagnosed with Factor V Leiden. - History of PE 30 years ago. - Estuardo denies current dyspnea or chest pain. Medication Management: - Currently taking Topamax, fluoxetine, and Crestor. MEDICATIONS: Current Outpatient Medications Medication Sig pantoprazole DR (PROTONIX) 40 mg tablet Take 1 tablet by mouth once daily. hydrOXYzine HCl (ATARAX) 10 mg tablet Take 1-2 tablets by mouth three times a day as needed. topiramate (TOPAMAX) 100 mg tablet take 1 tablet by mouth IN THE MORNING and 1 tablet AT NIGHT FLUoxetine (PROZAC) 40 mg capsule Take 1 capsule by mouth once daily. rosuvastatin (CRESTOR) 5 mg tablet Take 1 tablet by mouth once daily. ezetimibe (ZETIA) 10 mg tablet Take 1 tablet by mouth once daily. rimegepant (NURTEC ODT) 75 mg disintegrating tablet Take one tablet every other day No current facility-administered medications for this visit. ALLERGIES: ALLERGIES Allergen Reactions Aleve [Naproxen Sod* GI Upset Bactrim [Sulfametho* Intolerance dizziness and upset stomach Latex Rash Lipitor [Atorvastat* Intolerance Elevated Liver enzymes Penicillins Unknown Tape [Adhesive Tape* Rash Tylenol [Acetaminop* Other: See Comments Nausea Vicodin [Hydrocodon* Vomiting PAST MEDICAL HISTORY Diagnosis Date Anxiety state, unspecified Blood dyscrasia Carpal tunnel syndrome Factor V Leiden (HCC) Galactorrhea not associated with childbirth 2006 Hiatal hernia 04/13/2003 [facility] History of 1987,1989,1993 Iron deficiency anemia, unspecified Mental disorder Migraine, unspecified, without mention of intractable migraine without mention of status migrainosus Other pulmonary embolism and infarction 1987 Pulmonary embolism AND factor 5 Leiden PAST SURGICAL HISTORY Procedure Laterality Date DELIVERY ONLY 1987,1989,1993 , low transverse EGD 11/24/2020 ESOPHAGOGASTRODUODENOSCOPY TRANSORAL DIAGNOSTIC 04/13/[address] [facility] Dr. Lundy ESOPHAGOGASTRODUODENOSCOPY TRANSORAL DIAGNOSTIC 12/08/2018 EGD HYSTERECTOMY HX 2005 left ovaries INCISE FINGER TENDON SHEATH Left 01/11/2021 Left middle trigger finger release GUERIN W/O FACETEC FORAMOT/DSC 11/12 VRT SGM CRV 2006 Laminectomy, cervical and titianium placed NECK SURGERY HX SKIN BIOPSY HX VAGINAL HYSTERECTOMY FAMILY HISTORY Problem Relation Age of Onset Diabetes Mother Headache Mother Hypertension Mother Heart Father 3 NE's, age 52 Cancer Maternal Grandmother Uterine Blood Disease Brother Leiden factor 5, Blood Disease Other Brother's son, Leiden Factor 5 SOCIAL HISTORY[1] Reviewed current medications, allergies, past medical history, surgical history, family history and social history today. REVIEW OF SYSTEMS Cardiovascular: (-) chest pain Respiratory: (-) shortness of breath Musculoskeletal: (+) leg aching pain from thigh to knee, (+) thigh tenderness to touch, (+) calf tenderness to touch, (+) leg pain with movement, (+) sharp thigh pain with walking, (-) leg swelling Neurological: (-) numbness, (-) tingling HEALTH MAINTENANCE: Reviewed health maintenance issues today and recommended the following in detail. Pneumococcal Vaccine: 50+(1 of 1 - PCV) Never done Mammogram Screening due on 02/23/2024 Colorectal Cancer Screening due on 06/16/2025 LAB REVIEWED: VITALS: BP 144/75 Pulse 75 Wt 68.9 kg (152 lb) SpO2 98% BMI 26.27 kg/m? Last 4 Encounter Wt Readings: Date: Wt: 07/07/2025 68.9 kg (152 lb) 05/11/2025 68.5 kg (151 lb) 01/07/2025 70.3 kg (155 lb) 01/04/2025 69.8 kg (153 lb 14.1 oz) PHYSICAL EXAMINATION: GENERAL: NAD, alert and oriented. SKIN: Unremarkable, no rash or skin lesions. HEAD: Normocephalic. EXTREMITIES: Left thigh tender to palpation, mild puffiness noted in the anterior thigh compared to the right side. No calf tenderness, no erythema. negative daksha's ASSESSMENT AND PLAN 1. Pain of left lower extremity (M79.605) 2. Factor V Leiden ([facility]) (D68.51) 3. History of pulmonary embolism (Z86.711) - Acute left lower extremity pain with localized (more content not included)... [facility] 07-07-2025 History of Present illness Narrative The patient is a 54-year-old female with factor V Leiden mutation and prior pulmonary embolism, presenting for evaluation of one week of right leg pain. HPI Left Leg Pain: - Aching pain in the left leg, localized to the anterior thigh, x1 week. - Pain radiates from the thigh to the knee; Estuardo denies pain in the calf or behind the knee. - Describes pain as aching and sharp at times. - Aggravated by palpation and movement. - Denies numbness or tingling. - No known trauma or injury. - Unaure if redness or swelling; unsure about warmth. - Recent travel to Estuardo's son's house, approximately 1.5 hours away, a few weeks ago. - Denies recent long-distance travel or prolonged immobility. Factor V Leiden: - Diagnosed with Factor V Leiden. - History of PE 30 years ago. - Estuardo denies current dyspnea or chest pain. Medication Management: - Currently taking Topamax, fluoxetine, and Crestor. MEDICATIONS: Current Outpatient Medications Medication Sig pantoprazole DR (PROTONIX) 40 mg tablet Take 1 tablet by mouth once daily. hydrOXYzine HCl (ATARAX) 10 mg tablet Take 1-2 tablets by mouth three times a day as needed. topiramate (TOPAMAX) 100 mg tablet take 1 tablet by mouth IN THE MORNING and 1 tablet AT NIGHT FLUoxetine (PROZAC) 40 mg capsule Take 1 capsule by mouth once daily. rosuvastatin (CRESTOR) 5 mg tablet Take 1 tablet by mouth once daily. ezetimibe (ZETIA) 10 mg tablet Take 1 tablet by mouth once daily. rimegepant (NURTEC ODT) 75 mg disintegrating tablet Take one tablet every other day No current facility-administered medications for this visit. ALLERGIES: ALLERGIES Allergen Reactions Aleve [Naproxen Sod* GI Upset Bactrim [Sulfametho* Intolerance dizziness and upset stomach Latex Rash Lipitor [Atorvastat* Intolerance Elevated Liver enzymes Penicillins Unknown Tape [Adhesive Tape* Rash Tylenol [Acetaminop* Other: See Comments Nausea Vicodin [Hydrocodon* Vomiting PAST MEDICAL HISTORY Diagnosis Date Anxiety state, unspecified Blood dyscrasia Carpal tunnel syndrome Factor V Leiden (HCC) Galactorrhea not associated with childbirth 2006 [facility]atal hernia 04/13/2003 [facility] History of 1987,1989,1993 Iron deficiency anemia, unspecified Mental disorder Migraine, unspecified, without mention of intractable migraine without mention of status migrainosus Other pulmonary embolism and infarction 1987 Pulmonary embolism & factor 5 Leiden PAST SURGICAL HISTORY Procedure Laterality Date DELIVERY ONLY 1987,1989,1993 , low transverse EGD 11/24/2020 ESOPHAGOGASTRODUODENOSCOPY TRANSORAL DIAGNOSTIC 04/13/[address] [facility] Dr. Lundy ESOPHAGOGASTRODUODENOSCOPY TRANSORAL DIAGNOSTIC 12/08/2018 EGD HYSTERECTOMY HX 2005 left ovaries INCISE FINGER TENDON SHEATH Left 01/11/2021 Left middle trigger finger release GUERIN W/O FACETEC FORAMOT/DSC 1/2 VRT SGM CRV 2006 Laminectomy, cervical and titianium placed NECK SURGERY HX SKIN BIOPSY HX VAGINAL HYSTERECTOMY FAMILY HISTORY Problem Relation Age of Onset Diabetes Mother Headache Mother Hypertension Mother Heart Father 3 NE's, age 52 Cancer Maternal Grandmother Uterine Blood Disease Brother Leiden factor 5, Blood Disease Other Brother's son, Leiden Factor 5 SOCIAL HISTORY[1] Reviewed current medications, allergies, past medical history, surgical history, family history and social history today. REVIEW OF SYSTEMS Cardiovascular: (-) chest pain Respiratory: (-) shortness of breath Musculoskeletal: (+) leg aching pain from thigh to knee, (+) thigh tenderness to touch, (+) calf tenderness to touch, (+) leg pain with movement, (+) sharp thigh pain with walking, (-) leg swelling Neurological: (-) numbness, (-) tingling HEALTH MAINTENANCE: Reviewed health maintenance issues today and recommended the following in detail. Pneumococcal Vaccine: 50+(1 of 1 - PCV) Never done Mammogram Screening due on 02/23/2024 Colorectal Cancer Screening due on 06/16/2025 LAB REVIEWED: VITALS: BP 144/75 Pulse 75 Wt 68.9 kg (152 lb) SpO2 98% BMI 26.27 kg/m Last 4 Encounter Wt Readings: Date: Wt: 07/07/2025 68.9 kg (152 lb) 05/11/2025 68.5 kg (151 lb) 01/07/2025 70.3 kg (155 lb) 01/04/2025 69.8 kg (153 lb 14.1 oz) PHYSICAL EXAMINATION: GENERAL: NAD, alert and oriented. SKIN: Unremarkable, no rash or skin lesions. HEAD: Normocephalic. EXTREMITIES: Left thigh tender to palpation, mild puffiness noted in the anterior thigh compared to the right side. No calf tenderness, no erythema. negative daksha's ASSESSMENT AND PLAN 1. Pain of left lower extremity (M79.605) 2. Factor V Leiden (HCC) (D68.51) 3. History of pulmonary embolism (Z86.711) - Acute left lower extremity pain with localized tenderness and mild anterior thigh swelling; no erythema or calf tenderness. - History of Factor V Leiden and prior PE (30+ years ago) increases risk for DVT. I worry about the possibility of another dvt and I do not have the ability to get a duplex at this time of day. - Differential includes DVT versus musculoskeletal etiology; unable to rule out DVT without imaging. - Referred to ER for urgent duplex ultrasound to rule out DVT and initiate anticoagulation if indicated. - Discussed rationale for ER referral, including risk of clot propagation and PE; patient verbalized understanding. (See patient after visit summary for additional instructions to patient) Justus Mcdonald MD Recording using [employer] software for draft documentation of the visit was discussed with the patient/authorized instruments sales representative; all questions welcomed and answered. Patient/authorized instruments sales representative agreed to proceed [1] Social History Tobacco Use Smoking status: Never Smokeless tobacco: Never Vaping Use Vaping status: Never Used Substance Use Topics Alcohol use: No Drug use: No documented in this encounter [facility] 07-07-2025 Discharge summary Note Date/Time July 07, 2025 6:05pm [facility] Medical Records Department [address] [place] [address] Emergency Department Summary 07/07/25 MR#: [id number] Acct: [id number] Name: ESTUARDO VILLA Rep #:[id number] : 1970 54 From: Fausto Brar PCP: Dr. Justus Mcdonald MD Status:REG E R Location: ED HPI History of Present Illness Chief Complaint: Lower Extremity Injury Informant: patient Narrative Narrative: Sent in by PCP 1 week history left upper thigh pain more laterally. Sent here for DVT rule out. Denies trauma denies any increase strenuous activities. She had a PE with factor V Leiden secondary to surgical history years ago. No chestpains no shortness of breath. [facility] Medical History Hypercholesteremia Factor 5 Leiden mutation, heterozygous Hyperlipidemia Anxiety Home Medications ?Medication ?Instructions ?Recorded ?Last Taken ?Type pantoprazole 40 mg tablet,delayed 40 mg PO DAILY #30 t abs 10/10/16 Unknown Rx release pravastatin 20 mg tablet 20 mg PO DAILY 09/29/20 Unkn own History dicyclomine 10 mg capsule 10 mg PO BID PRN abdominal p ain 05/15/21 Unknown Rx #14 caps fluoxetine 20 mg capsule 20 mg PO DAILY 05/15/21 Unkn own History ondansetron 4 mg disintegrating 4 mg PO Q8H PRN nausea and 05/15/21 Unknown Rx tablet vomiting #10 tabs doxycycline monohydrate 100 mg 100 mg PO BID #20 CAPSU LES 06/29/23 Unknown Rx capsule ondansetron 4 mg disintegrating 4 mg PO Q6H PRN nausea and 03/29/25 Unknown Rx tablet vomiting #7 tabs ezetimibe 10 mg tablet 10 mg PO DAILY 07/07/25 Unkn own History fluoxetine 40 mg capsule 40 mg PO DAILY 07/07/25 Unkn own History hydroxyzine HCl 10 mg tablet 10 - 20 mg PO TID PRN PRN anxiety 07/07/25 Unknown History rimegepant 75 mg disintegrating 75 mg PO QODAY 5 Unknown History tablet (Nurtec ODT) rosuvastatin 5 mg tablet 5 mg PO DAILY 07/07/25 Unkno wn History topiramate 100 mg tablet 100 mg PO BID 07/07/25 Unkno wn History Allergy/AdvReac Type Severity Reaction Status Date / Time latex Allergy Rash Verified 07/07/25 16:50 Penicillins Allergy Other Verified 07/07/25 16:50 acetaminophen (From Tylenol) AdvReac Nausea Verified 07/07/25 16:50 naproxen (From Aleve) AdvReac Nausea/Vom/ Verified 07/07/25 16:50 Diarrhea Family History Mother Diabetes Heart disease Grandmother Cervical cancer Surgical History H/O neck surgery S/P S/P hysterectomy Social History Smoking Status: Never smoker alcohol intake: current alcohol intake frequency: holidays/special occasions only substance use type: does not use caffeine: Yes what type of physical activity do you participate in: none seatbelt use: sometimes do you feel safe at home: Yes 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 [employer] ROS ED Constitutional Constitutional ED: Denies fever(s) Cardiovascular Cardiovascular: Denies chest pain Respiratory/Chest Respiratory/Chest: Denies cough Gastrointestinal Gastrointestinal: Denies diarrhea or vomiting Musculoskeletal Musculoskeletal: Reports other Details: Left thigh pain Integumentary Denies rash or wounds Neurologic Neurologic: Denies weakness EXAM Physical Exam Const Vital Signs: 07/07/25 16:48 Temperature 98.0 F Temperature Source Oral Pulse Rate 73 Respiratory Rate 16 Blood Pressure 171/92 H Blood Pressure Mean 118 Pulse Ox 100 Oxygen Delivery Method Room Air Positive well nourished and well developed General Appearance ED: well developed HEENT normocephalic and atraumatic Eyes General Eye ED: Yes normal appearance of both eyes Neck full ROM Resp normal respiratory effort and normal air movement Cardio regular rate and regular rhythm GI soft to palpation Extremity full ROM Extremity Narrative: Left lower extremity: No medial thigh tenderness no calf tenderness. There is tenderness lateral upper thigh. Soft compartments. Pulses intact distally. Neuro oriented x3 Skin no rashes or lesions noted and no wounds MDM MDM MDM Narrative Medical decision making narrative: Interventions / MDM: Differential diagnosis: Left thigh pain, muscle strain Diagnosis considered but do not suspect: N/A My EKG interpretation: N/A Imaging independently reviewed and interpreted by myself: Ultrasound left lower extremity: Negative for DVT. External documents reviewed: N/A Test considered but not ordered:N/A ED course: Patient left thigh pain more laterally. Sent in by PCP for ultrasound. Low suspicion for DVT. No further ultrasound be ordered for rule out DVT as she is sent in by her PCP. Ultrasound discussion with environmental compliance technician negative. Patient reassured of findings. She is used Tylenol as needed. She will follow-up with her doctor. Re-evaluation: stable Disposition discussed with patient/family/significant other: Patient Case discussed with consulting clinician: N/A This note was generated with [employer] dictation software. It may contain incorrectwords, spelling, and punctuation that were not noted in checking the note beforesigning. Radiography Diagnostic Testing: Clinical Impression(s) from Imaging Studies Venous Duplex 07/07/25 17:11 IMPRESSION: No evidence for DVT in the left lower extremity. Reading Location: [facility] Discharge Plan Triage Chief Complaint: Lower Extremity Injury ED Provider: Fausto Johnston Dx/Rx/DC Orders Clinical Impression: Acute pain of left thigh, Muscle strain Instructions: ED Muscle Strain, Extremity Prescriptions: No Action pantoprazole 40 MG tablet 40 mg PO DAILY Qty: 30 2RF pravastatin 20 MG tablet 20 mg PO DAILY fluoxetine 20 mg capsule 20 mg PO DAILY Patient Comments: take 1 capsule by mouth once daily ondansetron 4 mg tablet,disintegrating 4 mg PO Q8H PRN (Reason: nausea and vomiting) Qty: 10 0RF dicyclomine 10 mg capsule 10 mg PO BID PRN (Reason: abdominal pain) Qty: 14 0RF doxycycline monohydrate 100 mg capsule 100 mg PO BID Qty: 20 0RF ondansetron 4 mg tablet,disintegrating 4 mg PO Q6H PRN (Reason: nausea and vomiting) Qty: 7 0RF hydroxyzine HCl 10 mg tablet 10 - 20 mg PO TID PRN PRN (Reason: anxiety) topiramate 100 mg tablet 100 mg PO BID fluoxetine 40 mg capsule 40 mg PO DAILY ezetimibe 10 mg tablet 10 mg PO DAILY rosuvastatin 5 mg tablet 5 mg PO DAILY Nurtec ODT 75 mg tablet,disintegrating 75 mg PO QODAY Primary Care Provider: Justus Mcdonald Referrals: Justus Mcdonald MD [Primary Care Provider] - 1-2 Weeks Activity Restrictions/Additional Instructions: Ultrasound left lower leg negative for DVT. Use Tylenol as needed. Monitor symptoms and follow-up with your doctor. Print Language: South African Disposition Disposition: Home, Self Care What to do if you have Problems For any increased pain, shortness of breath, bleeding, nausea or vomiting, chestpain, or any unexpected problems, contact your Primary Care Provider. Call [facility] ([phone]) or report to the closest Emergency Room. Call 911 if necessary. 07/07/251804 <Electronically signed by Fausto Brar> Cosigner Signature (if applicable): CC: Dr. Justus Mcdonald MD ~ Signed [facility] Work Phone: 1(918) 235-265208-26-2025 Telephone encounter Note* Telephone Encounter - Agnieszka Kingsley MA - 07/06/2025 4:39 PM EDT Patient read mychart result note Agnieszka Kingsley MA July 06, 2025 4:[address] [facility]08-26-2025 Telephone encounter Note* Telephone Encounter - Agnieszka Kingsley MA - 07/06/2025 4:39 PM EDT ----- Message from [place] sent at 07/06/2025 2:17 PM EDT ----- Please see food allergy list. All are negative. ----- Message ----- From: Lab, Background User Sent: 07/06/2025 1:39 PM EDT To: Ar[place] APRN.DATER ASSEMBLER [facility]08-26-2025 Miscellaneous Notes* Telephone Encounter - Agnieszka Kingsley MA - 07/06/2025 4:39 PM EDT Patient read mychart result note Agnieszka Kingsley MA July 06, 2025 4:39 PM * Telephone Encounter - Agnieszka Kingsley MA - 07/06/2025 4:39 PM EDT ----- Message from [place] sent at 07/06/2025 2:17 PM EDT ----- Please see food allergy list. All are negative. ----- Message ----- From: Lab, Background User Sent: 07/06/2025 1:39 PM EDT To: [place] APRN.DATER ASSEMBLER * Result Encounter Note - Ar[place] APRN.CNP - 07/06/2025 2:17 PM EDT Please see food allergy list. All are negative. documented in this encounterSt[facility] Progress note* Result Encounter Note - Ar[place] APRN.CNP - 07/06/2025 2:17 PM EDT Please see food allergy list. All are negative. [facility]07-28-2025 Telephone encounter Note* Telephone Encounter - Ale Kennedy - 06/07/2025 12:09 PM EDT Patient is out of medication. Please send in belén. [facility]07-28-2025 Miscellaneous Notes* Telephone Encounter - Ale Kennedy - 06/07/2025 12:09 PM EDT Patient is out of medication. Please send in belén. * Telephone Encounter - Ale Kennedy - 06/07/2025 12:07 PM EDT Prescription Refill Information The patient has been identified by name and date of : Yes Caregiver verified no other encounters exist for this prescription request: Yes Caregiver confirmed with patient/requestor that no other refills are due, in the near future, with this provider at this time: Yes The last office visit in the department: 05-11-25 Does the patient have a future office visit with this provider/department: Yes Requested Prescriptions Pending Prescriptions Disp Refills pantoprazole DR (PROTONIX) 40 mg tablet 90 tablet 1 Sig: Take 1 tablet by mouth once daily. Ale Magallon June 07, 2025 12:07 PM documented in this encounterSt[facility] Telephone encounter Note * Telephone Encounter - Ale Kennedy - 06/07/2025 12:07 PM EDT Prescription Refill Information The patient has been identified by name and date of : Yes Caregiver verified no other encounters exist for this prescription request: Yes Caregiver confirmed with patient/requestor that no other refills are due, in the near future, with this provider at this time: Yes The last office visit in the department: 05-11-25 Does the patient have a future office visit with this provider/department: Yes Requested Prescriptions Pending Prescriptions Disp Refills pantoprazole DR (PROTONIX) 40 mg tablet 90 tablet 1 Sig: Take 1 tablet by mouth once daily. Ale Magallon June 07, 2025 12:[address] [facility]07-01-2025 Instructions* Patient Instructions* Ar[place] APRN.DATER ASSEMBLER - 05/11/2025 10:05 AM EDT - Refill hydroxyzine so you have enough tablets on hand; take 1-2 tablets as needed for anxiety (upto 3 per day). - Stop pravastatin and start rosuvastatin in the morning with your other medications; use GoodRx orpharmacy discount programs if needed. - Continue topiramate each morning for migraine prevention as you have been doing. - Continue pantoprazole daily for reflux. - Begin ondansetron (Zofran) as needed for nausea once you re able to obtain it under your insurance. - For knee arthritis pain, take extra-strength acetaminophen (Tylenol) 1 tablet three times daily as needed, or apply diclofenac gel to the knee once daily. - If you d like to explore food allergy causes for your stomach symptoms, discuss a blood-test panel for common food allergies with your primary care provider. - A work-clearance note confirming your fitness for employment at [employer] has been prepared--please pick it up or submit it to your employer as needed. documented in this encounterSt. [facility] NoteHNO ID: [id number] Author: AR[place] APRN.CNP Service: ? Author Type: Nurse Practitioner Type: Progress Notes Filed: 05/11/2025 10:09 Note Text: Chief Reason For Appointment No chief complaint on file. Estuardo Villa is a 54 year old female who presents for annual exam. Last office visit date: 01/07/2025 Accompanied By self only Have you had any critical events, hospital stays, ER visits, surgeries or procedures since your last visit here in our office: Yes [facility]/Other Healthcare Providers Seen: Patient Care Team: Justus Mcdonald MD as PCP - General (Family Medicine) Amber Lenz APRN.CNP as Salon Supervisor (Family Medicine) [place] APRN.CNP as Salon Supervisor (Family Medicine) Concerns today: Anxiety HPI New job Estuardo Villa is a 54-year-old female with a history of anxiety, hyperlipidemia, migraines, and GERD, presenting for a work physical and evaluation of anxiety. Work Physical: - New job at [employer]. - Recent weight loss attributed to dental extractions and dentures. - Denies fever, chills, chest pain, leg swelling, or joint pain/swelling. - Denies chronic diarrhea or constipation. - Denies rashes, itching, excessive thirst, syncope, seizures, or tremors. - Denies hematuria or dysuria. - Denies hopelessness, helplessness, or suicidal ideation. - Denies interest in further COVID-19 vaccinations; completed Hepatitis B series in 2000. - History of neck surgery. - Allergies noted. Anxiety: - Managed with fluoxetine and hydroxyzine PRN. - Reports increased anxiety since divorce in October and mother's passing last year. - Fluoxetine perceived as less effective; noticeable difference if not taken. - Hydroxyzine provides some relief; occasionally requires 3 doses. - Experiences palpitations and dyspnea attributed to anxiety. - Denies interest in medications associated with weight gain. Hyperlipidemia: - Taking pravastatin, but non-adherent due to difficulty remembering nighttime doses. - Family history of hyperlipidemia. - Recent labs show significantly elevated LDL levels. Migraines: - Managed with topiramate, taken once daily in the morning. - Reports decreased frequency of migraines. GERD: - Taking pantoprazole with some relief. - Persistent nausea and upset stomach, even without food intake. - History of EGD in 2019 showing non-severe esophagitis. - Reports sensitivity to certain foods and drinks, leading to avoidance of some medications. Active Problems ACTIVE PROBLEM LIST Chronic Superficial Gastritis Without Bleeding - 08/09/2023 Iron Deficiency Anemia Due to Chronic Blood Loss - 01/29/2023 Acute Pain of Right Knee - 12/07/2022 Esophageal Dysphagia - 10/29/2018 Comment: Added automatically from request for surgery [id number] Globus Sensation - 10/29/2018 Comment: Added automatically from request for surgery [id number] Epigastric Pain - 10/29/2018 Comment: Added automatically from request for surgery [id number] Gastroesophageal Reflux Disease - 10/29/2018 Comment: Added automatically from request for surgery [id number] Sprain and Strain of Unspecified Site of Elbow and Forearm - 06/15/2014 Factor V Leiden (Hcc) Comment: Saw Dr. Cobb. Advised against fpc anticoagulation or asa. No hormones. Needs post operative dvt prophylaxis. Palpitations - 01/11/2012 Hiatal Hernia - 01/11/2012 Carpal Tunnel Syndrome - 01/11/2012 Anxiety - 01/11/2012 Migraine - 01/11/2012 Hyperlipidemia - 12/10/2011 ROS: Constitutional: (+) weight loss, (-) fever, (-) chills Head: (+) headaches Ears/Nose/Mouth/Throat: (+) nasal congestion, (+) oral pain Neck: (-) neck swelling Cardiovascular: (+) palpitations, (-) chest pain, (-) peripheral edema Respiratory: (+) dyspnea, (-) orthopnea Gastrointestinal: (+) nausea, (+) abdominal discomfort, (+) heartburn, (-) diarrhea, (-) constipation Genitourinary: (-) dysuria, (-) hematuria Musculoskeletal: (-) joint pain, (-) joint swelling Skin: (-) rash, (-) pruritus Neurological: (-) syncope, (-) seizures, (-) tremors Psychiatric: (+) anxiety Endocrine: (-) polydipsia PAST MEDICAL HISTORY Diagnosis Date Anxiety state, unspecified Blood dyscrasia Carpal tunnel syndrome Factor V Leiden (HCC) Galactorrhea not associated with childbirth 2006 Hiatal hernia 04/13/2003 GONZALESDCarey Lundy History of 1987,1989,1993 Iron deficiency anemia, unspecified Mental disorder Migraine, unspecified, without mention of intractable migraine without mention of status migrainosus Other pulmonary embolism and infarction 1987 Pulmonary embolism AND factor 5 Leiden PAST SURGICAL HISTORY Procedure Laterality Date DELIVERY ONLY 1987,1989,1993 , low transverse EGD 11/24/2020 ESOPHAGOGASTRODUODENOSCOPY TRANSORAL DIAGNOSTIC 04/13/[address] [facility] Dr. 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 Estuardo Villa is a 54 year old female who presents for annual exam. Last office visit date: 01/07/2025 Accompanied By self only Have you had any critical events, hospital stays, ER visits, surgeries or procedures since your last visit here in our office: Yes [facility] Specialists/Other Healthcare Providers Seen: Patient Care Team: Justus Mcdonald MD as PCP - General (Family Medicine) Amber Lenz APRN.MAN as Salon Supervisor (Family Medicine) [place] APRN.MAN as Salon Supervisor (Family Medicine) Concerns today: Anxiety HPI New job Estuardo Villa is a 54-year-old female with a history of anxiety, hyperlipidemia, migraines, and GERD, presenting for a work physical and evaluation of anxiety. Work Physical: - New job at [employer]. - Recent weight loss attributed to dental extractions and dentures. - Denies fever, chills, chest pain, leg swelling, or joint pain/swelling. - Denies chronic diarrhea or constipation. - Denies rashes, itching, excessive thirst, syncope, seizures, or tremors. - Denies hematuria or dysuria. - Denies hopelessness, helplessness, or suicidal ideation. - Denies interest in further COVID-19 vaccinations; completed Hepatitis B series in 2000. - History of neck surgery. - Allergies noted. Anxiety: - Managed with fluoxetine and hydroxyzine PRN. - Reports increased anxiety since divorce in October and mother's passing last year. - Fluoxetine perceived as less effective; noticeable difference if not taken. - Hydroxyzine provides some relief; occasionally requires 3 doses. - Experiences palpitations and dyspnea attributed to anxiety. - Denies interest in medications associated with weight gain. Hyperlipidemia: - Taking pravastatin, but non-adherent due to difficulty remembering nighttime doses. - Family history of hyperlipidemia. - Recent labs show significantly elevated LDL levels. Migraines: - Managed with topiramate, taken once daily in the morning. - Reports decreased frequency of migraines. GERD: - Taking pantoprazole with some relief. - Persistent nausea and upset stomach, even without food intake. - History of EGD in 2019 showing non-severe esophagitis. - Reports sensitivity to certain foods and drinks, leading to avoidance of some medications. Active Problems ACTIVE PROBLEM LIST Chronic Superficial Gastritis Without Bleeding - 08/09/2023 Iron Deficiency Anemia Due to Chronic Blood Loss - 01/29/2023 Acute Pain of Right Knee - 12/07/2022 Esophageal Dysphagia - 10/29/2018 Comment: Added automatically from request for surgery [id number] Globus Sensation - 10/29/2018 Comment: Added automatically from request for surgery [id number] Epigastric Pain - 10/29/2018 Comment: Added automatically from request for surgery [id number] Gastroesophageal Reflux Disease - 10/29/2018 Comment: Added automatically from request for surgery [id number] Sprain and Strain of Unspecified Site of Elbow and Forearm - 06/15/2014 Factor V Leiden (Hcc) Comment: Saw Dr. Cobb. Advised against fpc anticoagulation or asa. No hormones. Needs post operative dvt prophylaxis. Palpitations - 01/11/2012 Hiatal Hernia - 01/11/2012 Carpal Tunnel Syndrome - 01/11/2012 Anxiety - 01/11/2012 Migraine - 01/11/2012 Hyperlipidemia - 12/10/2011 ROS: Constitutional: (+) weight loss, (-) fever, (-) chills Head: (+) headaches Ears/Nose/Mouth/Throat: (+) nasal congestion, (+) oral pain Neck: (-) neck swelling Cardiovascular: (+) palpitations, (-) chest pain, (-) peripheral edema Respiratory: (+) dyspnea, (-) orthopnea Gastrointestinal: (+) nausea, (+) abdominal discomfort, (+) heartburn, (-) diarrhea, (-) constipation Genitourinary: (-) dysuria, (-) hematuria Musculoskeletal: (-) joint pain, (-) joint swelling Skin: (-) rash, (-) pruritus Neurological: (-) syncope, (-) seizures, (-) tremors Psychiatric: (+) anxiety Endocrine: (-) polydipsia PAST MEDICAL HISTORY Diagnosis Date Anxiety state, unspecified Blood dyscrasia Carpal tunnel syndrome Factor V Leiden (HCC) Galactorrhea not associated with childbirth 2007 Hiatal hernia 04/13/2003 GONZALESDCarey Lundy History of 1987,1989,1993 Iron deficiency anemia, unspecified Mental disorder Migraine, unspecified, without mention of intractable migraine without mention of status migrainosus Other pulmonary embolism and infarction 1987 Pulmonary embolism & factor 5 Leiden PAST SURGICAL HISTORY Procedure Laterality Date DELIVERY ONLY 1987,1989,1993 , low transverse EGD 11/24/2020 ESOPHAGOGASTRODUODENOSCOPY TRANSORAL DIAGNOSTIC 04/13/[address] [facility] Dr. Lundy ESOPHAGOGASTRODUODENOSCOPY TRANSORAL DIAGNOSTIC 12/08/2018 EGD HYSTERECTOMY HX 2005 left ovaries INCISE FINGER TENDON SHEATH Left 01/11/2021 Left middle trigger finger release GUERIN W/O FACETEC FORAMOT/DSC 11/12 VRT SGM CRV 2005 Laminectomy, cervical and titianium placed NECK SURGERY HX SKIN BIOPSY HX VAGINAL HYSTERECTOMY Medication List Current Outpatient Medications Medication Sig Dispense Refill topiramate (TOPAMAX) 100 mg tablet take 1/2 tablet by mouth IN THE MORNING and 1 tablet AT NIGHT (Patient taking differently: take 1 tablet by mouth IN THE MORNING and 1 tablet AT NIGHT) 45 tablet 3 hydrOXYzine HCl (ATARAX) 10 mg tablet Take 1-2 tablets by mouth three times a day as needed. 90 tablet 2 pravastatin (PRAVACHOL) 20 mg tablet Take 1 tablet by mouth daily at bedtime. 90 tablet 3 ezetimibe (ZETIA) 10 mg tablet Take 1 tablet by mouth once daily. [address] (PROTONIX) 40 mg tablet Take 1 tablet by mouth once daily. 90 tablet 1 FLUoxetine (PROZAC) 40 mg capsule Take 1 capsule by mouth once daily. 90 capsule 3 rimegepant (NURTEC ODT) 75 mg disintegrating tablet Take one tablet every other day 16 tablet 2 No current facility-administered medications for this visit. Weight Summary: Weight Change: Body mass index is 26.1 kg/m . Last Wt 05/11/25 : 68.5 kg (151 lb) 01/07/25 : 70.3 kg (155 lb) 01/04/25 : 69.8 kg (153 lb 14.1 oz) 10/06/24 : 70.5 kg (155 lb 6.8 oz) 09/14/24 : 70 kg (154 lb 5.2 oz) Physical Exam: GENERAL: NAD, alert and oriented. SKIN: Unremarkable, no rash or skin lesions. HEAD: Normocephalic. EYES: PERRLA, EOMI, conjunctiva clear. EARS: External ears normal, canals clear, TM's normal. NOSE/SINUSES: Nares normal. Septum midline. OROPHARYNX: Lips, mucosa, and tongue normal, good dentition. No oral lesions noted. NECK: Supple, no lymphadenopathy, normal thyroid, no carotid bruits. LUNGS: Clear to auscultation bilaterally, no wheezes/rhonchi/rales. HEART: Regular rate and rhythm, no murmurs. No ectopy. EXTREMITIES: Normal, no deformities, no skin discoloration, no edema. NEURO: Awake, alert and oriented x3, cranial nerves II-XII grossly intact, normal gait, no involuntary motions. SCREENINGS Health Maintenance Listing Depression Screening Hepatitis B Vaccine(1 of 3 - 19+ 3-dose series) Pneumococcal Vaccine: 50+(1 of 1 - PCV) Mammogram Screening Covid-19 Vaccine(2023- season) Colorectal Cancer Screening TEST RESULTS: Lab Studies: Date of lab studies: Labs: - LDL cholesterol: Extremely elevated Tests: (2019) EGD: Non-severe esophagitis Imaging: - Left knee imaging: Mild arthritis and effusion - glucose - potassium - Creatinine, gfr - LFTs Lipid: WBC, H&H, Platelets: A1C: Vitamin D: Other: A/P: 1. Anxiety (F41.9) - Currently managed with fluoxetine and hydroxyzine. Fluoxetine efficacy is diminishing; patient hesitant to discontinue due to noticeable difference when not taken. - Hydroxyzine provides some relief; patient occasionally takes up to 3 tablets. - Discussed potential switch from hydroxyzine to buspirone TID; patient prefers to continue currentregimen. - Increased hydroxyzine prescription to ensure availability for TID dosing if needed. - Discussed potential switch from fluoxetine to escitalopram; patient concerned about weight gain, decided to continue fluoxetine. 2. Migraine without aura and without status migrainosus, not intractable (G43.009) - Managed with topiramate, currently taking one dose in the morning. - Educated patient on potential weight loss side effect of topiramate. - Advised to consider taking the second dose at night for optimal efficacy. 3. Mixed hyperlipidemia (E78.2) - Currently on pravastatin, difficulty with adherence due to bedtime dosing. - LDL cholesterol levels are critically high. - Switched to rosuvastatin to be taken in the morning for better adherence. - Discussed cost concerns; advised use of [employer] for affordability. 4. Gastroesophageal reflux disease without esophagitis (K21.9) - Managed with pantoprazole; patient reports persistent stomach upset. - Previous EGD in 2019 showed non-severe esophagitis. - Ordered Zofran for as-needed use to manage nausea. - Discussed potential food allergies as a contributing factor; ordered blood test for common allergies. 5. Factor V Leiden (HCC') - not on blood thinners per hematology 6. Nausea (R11.0) - Chronic issue, exacerbated by certain foods and medications. - Ordered Zofran for as-needed use. - Discussed potential food allergies; ordered blood test for common allergies. 7. Screening for depression (Z13.31) - No hopelessness, helplessness, or suicidal thoughts reported. - Anxiety symptoms are primary concern. 8. Wellness examination - ICD9: V70.0, ICD10: Z00.00 - Counseled on healthy diet and regular exercise - Note written for new job Discussed treatment plan and patient voices understanding. Patient's questions answered appropriately. Medications and potential side effects were discussed and patient voices understanding. Return to the office as scheduled or as needed for worsening/no improvement. [place] APRN.MAN Follow Up Plans: [facility] Medical Records Department [address] [place] [id number] Emergency Department Summary 03/29/25 MR#: [id number] Acct: [id number] Name: ESTUARDO VILLA Rep #:[id number] : 1970 54 From: Mango Leone MD PCP: Dr. Justus Mcdonald MD Status:REG E R Location: ED [facility] HPI - GI History of Present Illness Chief Complaint: Nausea/Vomiting Informant: patient and family Abdominal Pain/Flank Pain Onset: Today Context: Gradual Onset Timing: Continuous Quality: Aching and Cramping Location: Epigastric Current Severity: Moderate Maximum Severity: Moderate Nausea/Vomiting/Emesis GI Symptom: Positive for Nausea and Vomiting Onset: Today Severity: Moderate Episodes: 10 Diarrhea/Melena/Hematochezia GI Symptom: Positive for Diarrhea; Negative for Melena or Hematochezia Onset: Today Stool Quality: Positive for Watery Severity: Moderate Associated Symptoms Associated Symptoms: Negative for Dysuria, Frequency, Hematuria or Urgency Narrative Narrative: 54-year-old female history of factor V mutation prior PE only abdominal surgery was partial hysterectomy. Patient states that she had all her teeth pulled lastweek by an oral surgeon. She has been onclindamycin. Today they saw her. Hertreating her for dry socket. Since she went home she was doing fine and then started having nausea vomiting. Along with epigastric abdominal pain. Then developed diarrhea. States she is thrown up at least 10 times. No hematemesis. No coffee-ground. No melena or hematochezia. No dysuria. No fever. Said sheis never had anything like this before. Does not know anyone particular she hasbeen around has been sick lately. Prior similar symptoms: No Recent Illness/Hospitalization: No PFSH PFSH Medical History Hypercholesteremia Factor 5 Leiden mutation, heterozygous Hyperlipidemia Anxiety Home Medications ?Medication ?Instructions ?Recorded ?Last Taken ?Type pantoprazole 40 mg tablet,delayed 40 mg PO DAILY #30 t abs 10/10/16 Unknown Rx release pravastatin 20 mg tablet 20 mg PO DAILY 09/29/20 Unkn own History dicyclomine 10 mg capsule 10 mg PO BID PRN abdominal p ain 05/15/21 Unknown Rx #14 caps fluoxetine 20 mg capsule 20 mg PO DAILY 05/15/21 Unkn own History ondansetron 4 mg disintegrating 4 mg PO Q8H PRN nausea and 05/15/21 Unknown Rx tablet vomiting #10 tabs doxycycline monohydrate 100 mg 100 mg PO BID #20 CAPSU LES 06/29/23 Unknown Rx capsule ondansetron 4 mg disintegrating 4 mg PO Q6H PRN nausea and 03/29/25 Unknown Rx tablet vomiting #7 tabs Allergy/AdvReac Type Severity Reaction Status Date / Time latex Allergy Rash Verified 03/29/25 20:24 Penicillins Allergy Other Verified 03/29/25 20:24 acetaminophen (From Tylenol) AdvReac Nausea Verified 03/29/25 20:24 naproxen (From Aleve) AdvReac Nausea/Vom/ Verified 03/29/25 20:24 Diarrhea Family History Mother Diabetes Grandmother Cervical cancer Surgical History H/O neck surgery S/P S/P hysterectomy Social History Smoking Status: Never smoker alcohol intake: current alcohol intake frequency: holidays/special occasions only substance use type: does not use caffeine: Yes what type of physical activity do you participate in: none seatbelt use: sometimes do you feel safe at home: Yes 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 [employer] ROS ED ROS Narrative Nausea, vomiting, diarrhea and abdominal pain. Constitutional Constitutional ED: Denies chills or fever(s) Cardiovascular Cardiovascular: Denies chest pain Respiratory/Chest Respiratory/Chest: Denies cough Gastrointestinal Gastrointestinal: Reports abdominal pain, diarrhea, nausea and vomiting; Denies constipation or melena Genitourinary Genitourinary ED: Denies dysuria or hematuria Musculoskeletal Musculoskeletal: Denies arthralgias, back pain, myalgias or neck pain Integumentary Denies abscess or Abrasions Neurologic Neurologic: Denies headache(s) Psychiatric Psychiatric: Denies anxiety Endocrine Endocrinology: Denies polydipsia Hematologic/Lymphatic Hematologic/Lymphatic: Denies easy bleeding, easy bruising or lymphadenopathy Allergic/Immunologic Allergic/Immunologic ED: Denies mouth swelling, tongue swelling or urticaria EXAM Physical Exam Narrative Exam Narrative: 54-year-old female sitting upright in bed. Vital signs are stable afebrile. Complaining of abdominal pain. Nauseated. But currently not vomiting. Family at bedside. H EENT exam pupils round react to light. Moist mucous membranes. Lower dentition is all been removed. Sutures in place. Neck nontender. No lymphadenopathy. Lungs clear to auscultation. Heart regular rhythm rate about 85 no murmur. Chest wall ribs nontender. Abdomen soft nondistended normal bowel sounds no peritoneal signs. She is tender in epigastric region. Not specifically in the right upper quadrant. No Abbott sign. No McBurney's point tenderness. No hernia or mass. Moving all 4 extremities. Nontender no edema. Normal strength. Back nontender. Neurologically she is awake alert. Answeringquestions following commands. Const Vital Signs: 03/29/25 20:22 03/29/25 20:24 03/29/25 21:21 Temperature 96.3 F L 96.3 F L Temperature Source Oral Temporal Pulse Rate 85 83 78 Respiratory Rate 18 18 16 Blood Pressure 146/82 H 146/82 H 142/63 H Blood Pressure Mean 103 103 89 Pulse Ox 100 100 98 Oxygen Delivery Method Room Air Room Air Room Air 05/19/25 21:24 Temperature 99 F Temperature Source Oral Pulse Rate 71 Respiratory Rate 18 Blood Pressure 142/63 H Blood Pressure Mean 89 Pulse Ox 99 Oxygen Delivery Method Room Air Positive well developed; Negative for cachectic, contractures or unkempt General Appearance ED: well developed and NAD; Negative for unkempt, cachectic, contractures or pallor Nutritional Appearance: Negative for cachectic HEENT Reports moist mucous membranes normocephalic and atraumatic Eyes PERRL and EOMs intact bilaterally General Eye ED: Negative for pale conjunctiva or scleral icterus Neck no lymphadenopathy, supple and no JVD Resp normal respiratory effort and clear to auscultation bilaterally Effort and Inspection: Negative for respiratory distress Auscultation: Negative for rales, rhonchi, wheezes or diminished lung sounds Cardio regular rate, regular rhythm, S1 normal heart sound, S2 normal heart sound and no murmurs Rate: Negative for bradycardia or tachycardic Rhythm: Negative for abnormal rhythm GI non-distended and no masses; Negative for non-tender GI Narrative: Mild epigastric tenderness. Inspection: Negative for abdominal distention Auscultation: normoactive bowel sounds Palpation: soft and tender; Negative for guarding, rigid, hepatomegaly, splenomegaly, hernia, mass,pulsatile mass or rebound tenderness present Back/Spine General Back: Negative for CVA tenderness Cervical Spine: Negative for cervical spine tenderness Thoracic Spine / Upper Back: Negative for thoracic spinal tenderness Lumbar Spine / Lower Back: Negative for lumbar spinal tenderness Extremity full ROM General Extremety ED: Negative for edema or tenderness General Extremity: Negative for edema Neuro CN's II-XII intact bilaterally and moves all extremities Sensorium / Orientation: alert, oriented to person, oriented to place and oriented to time; Negative for orientation impaired, confused, lethargic or stuporous Motor Exam: strength 5/5 throughout Psych mental status grossly normal and thought process normal Appearance: Negative for unkempt Attitude: No agitated Mood & Affect: Negative for depressed, anxious or tearful Skin no wounds General Skin Exam: Negative for jaundice or pallor Lesions: no lesions Rashes: no rashes Trauma: Negative for abrasion Nails: Negative for discolored MDM MDM MDM Narrative Medical decision making narrative: 54-year-old female plan nausea, vomiting and diarrhea today. Started around 4 PM. Then developed epigastric abdominal pain. CAT scan and labs are being obtained. Differential include viral gastroenteritis, pancreatitis, biliary colic. Clinically I do not think this is a bowel obstruction. She will be treated with IV fluids, Zofran for nausea and morphine for her pain. Repeat exam at 10:19 PM patient doing better. Abdomen is benign. Nontender. Nondistended. Pain is much better after the morphine. Still has some nausea but not actively vomiting. She will be given additional Zofran. We went over her lab results which are basically unremarkable except for mild dehydration. Awaiting the CT results which have already reviewed. Currently waiting for the radiologist interpretation. Patient feeling much better at 10:45 PM. Said her nausea is resolving. Abdomenis benign. Again nontender soft. We went over test results. She is comfortable being discharged home with Zofran. Fluids and rest. Follow-up as needed return if worse. Treated as a viral gastroenteritis. History & Record Review Discussion w/independent historian: Family Additional record(s) reviewed:: Prior inpatient record, Prior outpatient record,Prior ED visit and Prior labs Lab Data Attestation: I reviewed the patient's lab results. Lab results narrative: CBC shows a white count 1.7. H&H is 16.8 and 50. Platelets 244. Electrolytes show sodium 138. Gap 14. Reveal a creatinine of 23 and 0.9 consistent with mild dehydration. Glucose 106. Liver enzymes unremarkable. ALT elevated 54. Lipase normal at 37. CT abdomen pelvis showed no acute abnormalities read by the radiologist. Reviewed by me. Labs: Laboratory Results - last 24 hr 03/29/25 20:30 WBC 11.7 H RBC 5.63 H Hgb 16.8 H Hct 50.0 H MCV 88.8 MCH 29.8 MCHC 33.6 RDW Std Deviation 43.1 RDW Coeff of Marcie 13.2 Plt Count 244 MPV 11.1 Immature Gran % (Auto) 0.500 Neut % (Auto) 83.5 H Lymph % (Auto) 7.4 L [place] % (Auto) 6.0 Eos % (Auto) 2.2 Baso % (Auto) 0.4 Absolute Neuts (auto) 9.8 H Absolute Lymphs (auto) 0.87 Nucleated RBC % 0 Sodium 138 Potassium 4.4 Chloride 105 Carbon Dioxide 19.8 L Anion Gap 14 BUN 23 H Creatinine 0.93 Estim Creat Clear Calc 66.13 Est GFR (MDRD) Non-Af 73 BUN/Creatinine Ratio 24.9 H Glucose 106 H Calcium 9.9 Total Bilirubin 0.43 AST 31 ALT 54 H Alkaline Phosphatase 93 Total Protein 7.9 Albumin 4.7 Globulin 3.2 Albumin/Globulin Ratio 1.5 Lipase 37 Radiography Diagnostic Testing: Clinical Impression(s) from Imaging Studies Abdomen/Pelvis CT 03/29/25 21:06 IMPRESSION: 1. No definite evidence for an acute intra-abdominal abnormality. 2. Mild stranding with subcentimeter lymph nodes present in the abdominal mesentery, nonspecific finding with differential including mesenteric panniculitis amongst other etiologies. 3. Hypodense lesions at the hepatic dome measuring up to 1.3 cm. Consider liver MRI per ACR white paper guidelines, particularly if patient has risk factors for hepatic malignancy. Reading Location: [facility] Discharge Plan Triage Chief Complaint: Nausea/Vomiting ED Provider: Mango Leone Dx/Rx/DC Orders Clinical Impression: Viral gastroenteritis, Hx pulmonary embolism, Acute dehydration, Abdominal pain Instructions: ED Dehydration (Adult), ED Gastroenteritis, Viral (Adult) Prescriptions: New ondansetron 4 mg tablet,disintegrating 4 mg PO Q6H PRN (Reason: nausea and vomiting) Qty: 7 0RF No Action pantoprazole 40 MG tablet 40 mg PO DAILY Qty: 30 2RF pravastatin 20 MG tablet 20 mg PO DAILY fluoxetine 20 mg capsule 20 mg PO DAILY Patient Comments: take 1 capsule by mouth once daily ondansetron 4 mg tablet,disintegrating 4 mg PO Q8H PRN (Reason: nausea and vomiting) Qty: 10 0RF dicyclomine 10 mg capsule 10 mg PO BID PRN (Reason: abdominal pain) Qty: 14 0RF doxycycline monohydrate 100 mg capsule 100 mg PO BID Qty: 20 0RF Primary Care Provider: Justus Mcdonald Referrals: Justus Mcdonald MD [Primary Care Provider] - 1-2 Days if not improving Activity Restrictions/Additional Instructions: Plenty of fluids and rest. Slowly increase your diet as tolerated. Water, 7-Up, ice chips, Gatorade and increase slowly as tolerated. Zofran as needed for nausea. You can let dissolve in your tongue or if Abels swallow it. Follow-up with your primary care physician if not improving or return if unable to keep fluids downor feeling worse. Your CAT scan labs look good. Suspect this to be a viral illness. Print Language: South African Disposition Disposition: Home, Self Care What to do if you have Problems For any increased pain, shortness of breath, bleeding, nausea or vomiting, chestpain, or any unexpected problems, contact your Primary Care Provider. Call [facility] ([phone]) or report tothe closest Emergency Room. Call 911 if necessary. 03/29/25 1787 Cosigner Signature (if applicable): CC: Dr. Justus Mcdonald MD ~ Signed [facility]05-19-2025 Radiology Diagnostic study note [facility] Imaging Services [address] [place], [place] [id number] Abdomen/Pelvis W IV Cont ONLY MR#: [id number] Acct: [id number] Name: ESTUARDO VILLA Rep #: [id number] : 1970 F 54 From: Mary Birch MD PCP: Dr. Justsu Mcdonald MD Status: REG E R Study:Abdomen/Pelvis W IV Cont ONLY Date of E xam: 03/29/25 Exam# [id number] Ordering Dr: Concha Leone MD PROCEDURE: ABDOMEN/PELVIS W IV CONT ONLY 03/29/2025 REASON FOR EXAM: ABD PAIN W/ VOMITING TECHNIQUE: Abdomen and pelvis CT with intravenous contrast. Coronal and Sagittal reconstruction series were provided. PATIENT PREPARATION: Per protocol CONTRAST: 85 mL Isovue 370 One or more dose reduction techniques were used (e.g., Automated exposure control, adjustment of the mA and/or kV according to patient size, use of iterative reconstruction technique. RADIATION DOSE SUMMARY: CTDlvol: 13.8 mGy DLP: 685 mGycm COMPARISON: None FINDINGS: Lung bases: Unremarkable. Liver: There are hypodense lesions measuring 1.3 cm at the left hepatic dome (series 2, image 16) and 0.9 cm at the right hepatic dome (image 18). Gallbladder: Unremarkable Spleen: Normal size. Pancreas: Normal size without evidence of mass surrounding inflammation or ductal dilation. Adrenals: Unremarkable Kidneys: No hydronephrosis or stone. Bladder: Unremarkable Reproductive Organs: Prior hysterectomy. Adnexal regions are unremarkable. Bowel: No obstruction or inflammation. Normal appendix. Lymph nodes: Mild stranding with subcentimeter lymph nodes present in the left mid abdominal mesentery. Vasculature: Unremarkable Bones: Unremarkable CT/Abdomen/Pelvis W IV Cont ONLY IMPRESSION: 1. No definite evidence for an acute intra-abdominal abnormality. 2. Mild stranding with subcentimeter lymph nodes present in the abdominal mesentery, nonspecific finding with differential including mesenteric panniculitis amongst other etiologies. 3. Hypodense lesions at the hepatic dome measuring up to 1.3 cm. Consider liver MRI per ACR white paper guidelines, particularly if patient has risk factors for hepatic malignancy. Reading Location: [id number] CC: Dr. Mango Leone MD; Dr. Justus Mcdonald MD ~ Communications Attendant: Signed [facility]05-19-2025 Discharge summary Author Mango Leone [facility] Note Date/Time March 29, 2025 10:53 pm [facility] Medical Records Department [address] [place] [address] Emergency Department Summary 03/29/25 MR#: [id number] Acct: [id number] Name: ESTUARDO VILLA Rep #:[id number] : 1970 54 From: Mango Leone MD PCP: Dr. Justus Mcdonald MD Status:REG E R Location: ED HPI HPI - GI History of Present Illness Chief Complaint: Nausea/Vomiting Informant: patient and family Abdominal Pain/Flank Pain Onset: Today Context: Gradual Onset Timing: Continuous Quality: Aching and Cramping Location: Epigastric Current Severity: Moderate Maximum Severity: Moderate Nausea/Vomiting/Emesis GI Symptom: Positive for Nausea and Vomiting Onset: Today Severity: Moderate Episodes: 10 Diarrhea/Melena/Hematochezia GI Symptom: Positive for Diarrhea; Negative for Melena or Hematochezia Onset: Today Stool Quality: Positive for Watery Severity: Moderate Associated Symptoms Associated Symptoms: Negative for Dysuria, Frequency, Hematuria or Urgency Narrative Narrative: 54-year-old female history of factor V mutation prior PE only abdominal surgery was partial hysterectomy. Patient states that she had all her teeth pulled lastweek by an oral surgeon. She has been on clindamycin. Today they saw her. Hertreating her for dry socket. Since she went home she was doing fine and then started having nausea vomiting. Along with epigastric abdominal pain. Then developed diarrhea. States she is thrown up at least 10 times. No hematemesis. No coffee-ground. No melena or hematochezia. No dysuria. No fever. Said sheis never had anything like this before. Does not know anyone particular she hasbeen around has been sick lately. Prior similar symptoms: No Recent Illness/Hospitalization: No PFSH PFSH Medical History Hypercholesteremia Factor 5 Leiden mutation, heterozygous Hyperlipidemia Anxiety Home Medications ?Medication ?Instructions ?Recorded ?Last Taken ?Type pantoprazole 40 mg tablet,delayed 40 mg PO DAILY #30 t abs 10/10/16 Unknown Rx release pravastatin 20 mg tablet 20 mg PO DAILY 09/29/20 Unkn own History dicyclomine 10 mg capsule 10 mg PO BID PRN abdominal p ain 05/15/21 Unknown Rx #14 caps fluoxetine 20 mg capsule 20 mg PO DAILY 05/15/21 Unkn own History ondansetron 4 mg disintegrating 4 mg PO Q8H PRN nausea and 05/15/21 Unknown Rx tablet vomiting #10 tabs doxycycline monohydrate 100 mg 100 mg PO BID #20 CAPSU LES 06/29/23 Unknown Rx capsule ondansetron 4 mg disintegrating 4 mg PO Q6H PRN nausea and 03/29/25 Unknown Rx tablet vomiting #7 tabs Allergy/AdvReac Type Severity Reaction Status Date / Time latex Allergy Rash Verified 03/29/25 20:24 Penicillins Allergy Other Verified 03/29/25 20:24 acetaminophen (From Tylenol) AdvReac Nausea Verified 03/29/25 20:24 naproxen (From Aleve) AdvReac Nausea/Vom/ Verified 03/29/25 20:24 Diarrhea Family History Mother Diabetes Grandmother Cervical cancer Surgical History H/O neck surgery S/P S/P hysterectomy Social History Smoking Status: Never smoker alcohol intake: current alcohol intake frequency: holidays/special occasions only substance use type: does not use caffeine: Yes what type of physical activity do you participate in: none seatbelt use: sometimes do you feel safe at home: Yes 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 Constitutional Constitutional ED: Denies chills or fever(s) Cardiovascular Cardiovascular: Denies chest pain Respiratory/Chest Respiratory/Chest: Denies cough Gastrointestinal Gastrointestinal: Reports abdominal pain, diarrhea, nausea and vomiting; Denies constipation or melena Genitourinary Genitourinary ED: Denies dysuria or hematuria Musculoskeletal Musculoskeletal: Denies arthralgias, back pain, myalgias or neck pain Integumentary Denies abscess or Abrasions Neurologic Neurologic: Denies headache(s) Psychiatric Psychiatric: Denies anxiety Endocrine Endocrinology: Denies polydipsia Hematologic/Lymphatic Hematologic/Lymphatic: Denies easy bleeding, easy bruising or lymphadenopathy Allergic/Immunologic Allergic/Immunologic ED: Denies mouth swelling, tongue swelling or urticaria EXAM Physical Exam Narrative Exam Narrative: 54-year-old female sitting upright in bed. Vital signs are stable afebrile. Complaining of abdominal pain. Nauseated. But currently not vomiting. Family at bedside. H EENT exam pupils round react to light. Moist mucous membranes. Lower dentition is all been removed. Sutures in place. Neck nontender. No lymphadenopathy. Lungs clear to auscultation. Heart regular rhythm rate about 85 no murmur. Chest wall ribs nontender. Abdomen soft nondistended normal bowel sounds no peritoneal signs. She is tender in epigastric region. Not specifically in the right upper quadrant. No Abbott sign. No McBurney's point tenderness. No hernia or mass. Moving all 4 extremities. Nontender no edema. Normal strength. Back nontender. Neurologically she is awake alert. Answeringquestions following commands. Const Vital Signs: 03/29/25 20:22 03/29/25 20:24 03/29/25 21:21 Temperature 96.3 F L 96.3 F L Temperature Source Oral Temporal Pulse Rate 85 83 78 Respiratory Rate 18 18 16 Blood Pressure 146/82 H 146/82 H 142/63 H Blood Pressure Mean 103 103 89 Pulse Ox 100 100 98 Oxygen Delivery Method Room Air Room Air Room Air 03/29/25 21:24 Temperature 99 F Temperature Source Oral Pulse Rate 71 Respiratory Rate 18 Blood Pressure 142/63 H Blood Pressure Mean 89 Pulse Ox 99 Oxygen Delivery Method Room Air Positive well developed; Negative for cachectic, contractures or unkempt General Appearance ED: well developed and NAD; Negative for unkempt, cachectic, contractures or pallor Nutritional Appearance: Negative for cachectic HEENT Reports moist mucous membranes normocephalic and atraumatic Eyes PERRL and EOMs intact bilaterally General Eye ED: Negative for pale conjunctiva or scleral icterus Neck no lymphadenopathy, supple and no JVD Resp normal respiratory effort and clear to auscultation bilaterally Effort and Inspection: Negative for respiratory distress Auscultation: Negative for rales, rhonchi, wheezes or diminished lung sounds Cardio regular rate, regular rhythm, S1 normal heart sound, S2 normal heart sound and no murmurs Rate: Negative for bradycardia or tachycardic Rhythm: Negative for abnormal rhythm GI non-distended and no masses; Negative for non-tender GI Narrative: Mild epigastric tenderness. Inspection: Negative for abdominal distention Auscultation: normoactive bowel sounds Palpation: soft and tender; Negative for guarding, rigid, hepatomegaly, splenomegaly, hernia, mass, pulsatile mass or rebound tenderness present Back/Spine General Back: Negative for CVA tenderness Cervical Spine: Negative for cervical spine tenderness Thoracic Spine / Upper Back: Negative for thoracic spinal tenderness Lumbar Spine / Lower Back: Negative for lumbar spinal tenderness Extremity full ROM General Extremety ED: Negative for edema or tenderness General Extremity: Negative for edema Neuro CN's II-XII intact bilaterally and moves all extremities Sensorium / Orientation: alert, oriented to person, oriented to place and oriented to time; Negative for orientation impaired, confused, lethargic or stuporous Motor Exam: strength 5/5 throughout Psych mental status grossly normal and thought process normal Appearance: Negative for unkempt Attitude: No agitated Mood & Affect: Negative for depressed, anxious or tearful Skin no wounds General Skin Exam: Negative for jaundice or pallor Lesions: no lesions Rashes: no rashes Trauma: Negative for abrasion Nails: Negative for discolored MDM MDM MDM Narrative Medical decision making narrative: 54-year-old female plan nausea, vomiting and diarrhea today. Started around 4 PM. Then developed epigastric abdominal pain. CAT scan and labs are being obtained. Differential include viral gastroenteritis, pancreatitis, biliary colic. Clinically I do not think this is a bowel obstruction. She will be treated with IV fluids, Zofran for nausea and morphine for her pain. Repeat exam at 10:19 PM patient doing better. Abdomen is benign. Nontender. Nondistended. Pain is much better after the morphine. Still has some nausea but not actively vomiting. She will be given additional Zofran. We went over her lab results which are basically unremarkable except for mild dehydration. Awaiting the CT results which have already reviewed. Currently waiting for the radiologist interpretation. Patient feeling much better at 10:45 PM. Said her nausea is resolving. Abdomenis benign. Again nontender soft. We went over test results. She is comfortable being discharged home with Zofran. Fluids and rest. Follow-up as needed return if worse. Treated as a viral gastroenteritis. History & Record Review Discussion w/independent historian: Family Additional record(s) reviewed:: Prior inpatient record, Prior outpatient record,Prior ED visit and Prior labs Lab Data Attestation: I reviewed the patient's lab results. Lab results narrative: CBC shows a white count 1.7. H&H is 16.8 and 50. Platelets 244. Electrolytes show sodium 138. Gap 14. Reveal a creatinine of 23 and 0.9 consistent with mild dehydration. Glucose 106. Liver enzymes unremarkable. ALT elevated 54. Lipase normal at 37. CT abdomen pelvis showed no acute abnormalities read by the radiologist. Reviewed by me. Labs: Laboratory Results - last 24 hr 03/29/25 20:30 WBC 11.7 H RBC 5.63 H Hgb 16.8 H Hct 50.0 H MCV 88.8 MCH 29.8 MCHC 33.6 RDW Std Deviation 43.1 RDW Coeff of Marcie 13.2 Plt Count 244 MPV 11.1 Immature Gran % (Auto) 0.500 Neut % (Auto) 83.5 H Lymph % (Auto) 7.4 L Glades % (Auto) 6.0 Eos % (Auto) 2.2 Baso % (Auto) 0.4 Absolute Neuts (auto) 9.8 H Absolute Lymphs (auto) 0.87 Nucleated RBC % 0 Sodium 138 Potassium 4.4 Chloride 105 Carbon Dioxide 19.8 L Anion Gap 14 BUN 23 H Creatinine 0.93 Estim Creat Clear Calc 66.13 Est GFR (MDRD) Non-Af 73 BUN/Creatinine Ratio 24.9 H Glucose 106 H Calcium 9.9 Total Bilirubin 0.43 AST 31 ALT 54 H Alkaline Phosphatase 93 Total Protein 7.9 Albumin 4.7 Globulin 3.2 Albumin/Globulin Ratio 1.5 Lipase 37 Radiography Diagnostic Testing: Clinical Impression(s) from Imaging Studies Abdomen/Pelvis CT 03/29/25 21:06 IMPRESSION: 1. No definite evidence for an acute intra-abdominal abnormality. 2. Mild stranding with subcentimeter lymph nodes present in the abdominal mesentery, nonspecific finding with differential including mesenteric panniculitis amongst other etiologies. 3. Hypodense lesions at the hepatic dome measuring up to 1.3 cm. Consider liver MRI per ACR white paper guidelines, particularly if patient has risk factors for hepatic malignancy. Reading Location: [facility] Discharge Plan Triage Chief Complaint: Nausea/Vomiting ED Provider: Mango Leone Dx/Rx/DC Orders Clinical Impression: Viral gastroenteritis, Hx pulmonary embolism, Acute dehydration, Abdominal pain Instructions: ED Dehydration (Adult), ED Gastroenteritis, Viral (Adult) Prescriptions: New ondansetron 4 mg tablet,disintegrating 4 mg PO Q6H PRN (Reason: nausea and vomiting) Qty: 7 0RF No Action pantoprazole 40 MG tablet 40 mg PO DAILY Qty: 30 2RF pravastatin 20 MG tablet 20 mg PO DAILY fluoxetine 20 mg capsule 20 mg PO DAILY Patient Comments: take 1 capsule by mouth once daily ondansetron 4 mg tablet,disintegrating 4 mg PO Q8H PRN (Reason: nausea and vomiting) Qty: 10 0RF dicyclomine 10 mg capsule 10 mg PO BID PRN (Reason: abdominal pain) Qty: 14 0RF doxycycline monohydrate 100 mg capsule 100 mg PO BID Qty: 20 0RF Primary Care Provider: Justus Mcdonald Referrals: Justus Mcdonald MD [Primary Care Provider] - 1-2 Days if not improving Activity Restrictions/Additional Instructions: Plenty of fluids and rest. Slowly increase your diet as tolerated. Water, 7-Up, ice chips, Gatorade and increase slowly as tolerated. Zofran as needed for nausea. You can let dissolve in your tongue or if Abels swallow it. Follow-up with your primary care physician if not improving or return if unable to keep fluids down or feeling worse. Your CAT scan labs look good. Suspect this to be a viral illness. Print Language: South African Disposition Disposition: Home, Self Care What to do if you have Problems For any increased pain, shortness of breath, bleeding, nausea or vomiting, chestpain, or any unexpected problems, contact your Primary Care Provider. Call [facility] ([phone]) or report to the closest Emergency Room. Call 911 if necessary. 03/29/25 1589 <Electronically signed by Mango Leone MD> Cosigner Signature (if applicable): CC: Dr. Justus Mcdonald MD ~ Signed [facility] Work Phone: [phone] 624-845904-30-2025 Telephone encounter Note* Telephone Encounter - Jg Box LPN - 03/10/2025 1:04 PM EDT Faxed as requested. [facility]04-30-2025 Miscellaneous Notes* Telephone Encounter - Jg Box LPN - 03/10/2025 1:04 PM EDT Faxed as requested. * Telephone Encounter - Justus Mcdonald MD - 03/10/2025 12:29 PM EDT done * Telephone Encounter - Jg Box LPN - 03/10/2025 10:27 AM EDT Type of form: reasonable accommodation request Form received via walk in When form is completed, Fax form to [phone] Form has been forwarded to Physician Desk: Dr. Mcdonald Patient told PSS her letter didn't work and now she needs form completed. Jg Box LPN documented in [facility] encounterSt[facility] Telephone encounter Note * Telephone Encounter - Justus Mcdonald MD - 03/10/2025 12:[address] [facility]04-30-2025 Telephone encounter Note* Telephone Encounter - Jg Box LPN - 03/10/2025 10:27 AM EDT Type of form: reasonable accommodation request Form received via walk in When form is completed, Fax form to [phone] Form has been forwarded to Physician Desk: Dr. Mcdonald Patient told PSS her letter didn't work and now she needs form completed. Jg Box LPN [facility]04-29-2025 Telephone encounter Note* Telephone Encounter - Kelly Guidry MA - 03/09/2025 2:41 PM EDT Patient informed. Letter taken to medical records for warp picker. Kelly Guidry MA [facility]04-29-2025 Miscellaneous Notes* Telephone Encounter - Kelly Guidry MA - 03/09/2025 2:41 PM EDT Patient informed. Letter taken to medical records for warp picker. Kelly Guidry MA * Telephone Encounter - Justus Mcdonald MD - 03/09/2025 12:43 PM EDT printed * Telephone Encounter - Geena Jimenes RN - 03/09/2025 11:06 AM EDT Patient call and states that she recently is . Patient is currently renting. The place where she is renting is needing a letter for her doctor stating why she needs to have her 15 year old cat. Patient reports that she suffers from anxiety and her cat helps her through that anxiety. Patientstates that if provider is able to write letter she can pick letter up. Please review and advise, Geena Jimenes RN documented in this encounterSt[facility]04[facility] Telephone encounter Note * Telephone Encounter - Justus Mcdonald MD - 03/09/2025 12:[address] [facility]04-29-2025 Telephone encounter Note* Telephone Encounter - Geena Jimenes RN - 03/09/2025 11:06 AM EDT Patient call and states that she recently is . Patient is currently renting. The place where she is renting is needing a letter for her doctor stating why she needs to have her 15 year old cat. Patient reports that she suffers from anxiety and her cat helps her through that anxiety. Patientstates that if provider is able to write letter she can pick letter up. Please review and advise, Geena Jimenes RN [facility]04-22-2025 Telephone encounter Note* Telephone Encounter - Linda Espinosa LPN - 03/02/2025 9:48 AM EDT Prescription Refill Information The patient has been identified by name and date of : Yes Caregiver verified no other encounters exist for this prescription request: Yes Caregiver confirmed with patient/requestor that no other refills are due, in the near future, with this provider at this time: Yes The last office visit in the department: 02/26/24 MQ Does the patient have a future office visit with this provider/department: No Requested Prescriptions Pending Prescriptions Disp Refills topiramate (TOPAMAX) 100 mg tablet 45 tablet 3 Sig: take 1/2 tablet by mouth IN THE MORNING and 1 tablet AT NIGHT Linda Espinosa LPN March 02, 2025 9:[address] [facility]04-22-2025 Miscellaneous Notes* Telephone Encounter - Linda Espinosa LPN - 03/02/2025 9:48 AM EDT Prescription Refill Information The patient has been identified by name and date of : Yes Caregiver verified no other encounters exist for this prescription request: Yes Caregiver confirmed with patient/requestor that no other refills are due, in the near future, with this provider at this time: Yes The last office visit in the department: 02/26/24 MQ Does the patient have a future office visit with this provider/department: No Requested Prescriptions Pending Prescriptions Disp Refills topiramate (TOPAMAX) 100 mg tablet 45 tablet 3 Sig: take 1/2 tablet by mouth IN THE MORNING and 1 tablet AT NIGHT Linda Espinosa LPN March 02, 2025 9:48 AM * Telephone Encounter - Isabella Carrera LPN - 03/02/2025 9:09 AM EDT Pt calls to request a refill of topiramate 100 mg 1.5 tabs daily. When ordering rx a window pops up stating it is a duplicate order or that it is too soon to order. Please review. Isabella Carrera LPN documented in this encounterSt. [facility]04[facility] Telephone encounter Note * Telephone Encounter - Isabella Carrera LPN - 03/02/2025 9:09 AM EDT Pt calls to request a refill of topiramate 100 mg 1.5 tabs daily. When ordering rx a window pops up stating it is a duplicate order or that it is too soon to order. Please review. Isabella Carrera LPN [facility]04-22-2025 NotePatient Outreach (FAMPWS) ESTUARDO VILLA ([id number]) 1970 F Date Time Provider Department 03/02/25 JUSTUS MCDONALDWS During your visit today, we recorded the following information about you: Allergies As of Date: 03/02/2025 Noted Allergy Reaction ALEVE (NAPROXEN SODIUM) 12/07/2011 8 - GI Upset BACTRIM (SULFAMETHOXAZOLE) 02/09/2014 5 - Intolerance Comments: dizziness and upset stomach LATEX 04/23/2019 2 - Rash LIPITOR (ATORVASTATIN CALCIUM) 12/07/2011 5 - Intolerance Comments: Elevated Liver enzymes PENICILLINS 03/08/2015 16 - Unknown TAPE (ADHESIVE TAPE (ROSINS)) 11/21/2012 2 - Rash TYLENOL (ACETAMINOPHEN) 12/24/2016 14 - Other: See Comments Comments: Nausea VICODIN (HYDROCODONE-ACETAMINOPHE*12/07/2011 11 - Vomiting Date Reviewed: 01/07/2025 Reviewed by: Agnieszka Kingsley MA - Fully Assessed Visit Diagnosis:Encounter for screening mammogram for breast cancer [Z12.31] Order(s):[facility] [[id number]] Order #: [id number] FUTURE Prescriptions as of 04/02/2025 - topiramate (TOPAMAX) 100 mg tablet take 1/2 tablet by mouth IN THE MORNING and 1 tablet AT NIGHT - hydrOXYzine HCl (ATARAX) 10 mg tablet Take 1-2 tablets by mouth three times a day as needed. - pravastatin (PRAVACHOL) 20 mg tablet Take 1 tablet by mouth daily at bedtime. - ezetimibe (ZETIA) 10 mg tablet Take 1 tablet by mouth once daily. - pantoprazole DR (PROTONIX) 40 mg tablet Take 1 tablet by mouth once daily. - FLUoxetine (PROZAC) 40 mg capsule Take 1 capsule by mouth once daily. - promethazine (PHENERGAN) 25 mg tablet Take 1 tablet by mouth every 4 hours as needed for nausea/vomiting. - rimegepant (NURTEC ODT) 75 mg disintegrating tablet Take one tablet every other day Problem List As Of Date 03/02/2025 Noted Resolved Galactorrhea not associated with childbirth [N6*07/07/2010 09/30/2018 Mastodynia [N64.4] 07/07/2010 09/30/2018 Lump or mass in breast [N63.0] 07/07/2010 09/30/2018 Hyperlipidemia [E78.5] 12/10/2011 Palpitations [R00.2] 01/11/2012 Hiatal hernia [K44.9] 01/11/2012 Carpal tunnel syndrome [G56.00] 01/11/2012 Anxiety [F41.9] 01/11/2012 Migraine [G43.909] 01/11/2012 Factor V Leiden (HCC) [D68.51] Sprain and strain of unspecified site of elbow *06/15/2014 Esophageal dysphagia [R13.19] 10/29/2018 Globus sensation [R09.A2] 10/29/2018 Epigastric pain [R10.13] 10/29/2018 Gastroesophageal reflux disease [K21.9] 10/29/2018 Acute pain of right knee [M25.561] 12/07/2022 Iron deficiency anemia due to chronic blood los*01/29/2023 Chronic superficial gastritis without bleeding *08/09/2023 Encounter Status:Closed by ASHA PRODUSER on 04/02/25[facility] 01-07-2025 Note* Addendum Note - Arlet Grove APRN.CNP - 01/07/2025 11:19 AM ESTAddended by: ARLET GROVE on: 01/07/2025 11:19 AM Modules accepted: Orders [facility]02-27-2025 Miscellaneous Notes* Addendum Note - Arlet Grove APRN.CNP - 01/07/2025 11:19 AM ESTAddended by: ARLET GROVE on: 01/07/2025 11:19 AM Modules accepted: Orders documented in this encounterSt. Anthony'[facility]02-27-2025 Instructions* Patient Instructions* Arlet Grove APRN.CNP - 01/07/2025 11:14 AM EST 1) Doxycycline 100 mg 2 x day for 10 days 2) Medrol taper 3) Follow up in 6 months documented in this encounterSt. [facility]02-27-2025 NoteHNO ID: [id number] Author: ARLET GROVE APRN.CNP Service: ? Author Type: Nurse Practitioner Type: Progress Notes Filed: 01/07/2025 11:14 Note Text: This is a 54 year old female who presents today with: Patient presents with: Cough: Follow up from express care HISTORY OF PRESENT ILLNESS: Estuardo Villa is a 54 year old female. Patient presents with: Cough: Follow up from express care Persistent cough. Sick for 3 weeks. Productive yellow-green at first. Initially chest hurt + Chills then, too + Headache Stuffy sinuses No sore No body aches + tired + nausea + diarrhea PAST MEDICAL HISTORY: PAST MEDICAL HISTORY Diagnosis Date Anxiety state, unspecified Blood dyscrasia Carpal tunnel syndrome Factor V Leiden (HCC) Galactorrhea not associated with childbirth 2007 Hiatal hernia 04/13/2003 [facility] History of 1987,1989,1993 Iron deficiency anemia, unspecified Mental disorder Migraine, unspecified, without mention of intractable migraine without mention of status migrainosus Other pulmonary embolism and infarction 1987 Pulmonary embolism AND factor 5 Leiden PAST SURGICAL HISTORY Procedure Laterality Date DELIVERY ONLY 1987,1989,1993 , low transverse EGD 11/24/2020 ESOPHAGOGASTRODUODENOSCOPY TRANSORAL DIAGNOSTIC 04/13/[address] [facility] Dr. Lundy ESOPHAGOGASTRODUODENOSCOPY TRANSORAL DIAGNOSTIC 12/08/2018 EGD HYSTERECTOMY HX 2005 left ovaries INCISE FINGER TENDON SHEATH Left 01/11/2021 Left middle trigger finger release GUERIN W/O FACETEC FORAMOT/DSC 11/12 VRT [facility] CRV 2005 Laminectomy, cervical and titianium placed NECK SURGERY HX SKIN BIOPSY HX VAGINAL HYSTERECTOMY ALLERGIES Aleve [Naproxen Sodium], Bactrim [Sulfamethoxazole], Latex, Lipitor [Atorvastatin Calcium], Penicillins, Tape [Adhesive Tape (Rosins)], Tylenol [Acetaminophen], and Vicodin [Hydrocodone-Acetaminophen] MEDICATIONS Current Outpatient Medications Medication Sig benzonatate (TESSALON PERLE) 100 mg capsule Take 1 capsule by mouth every 8 hours as needed for cough for up to 15 days. hydrOXYzine HCl (ATARAX) 10 mg tablet Take 1-2 tablets by mouth three times a day as needed. topiramate (TOPAMAX) 100 mg tablet take 1/2 tablet by mouth IN THE MORNING and 1 tablet AT NIGHT pravastatin (PRAVACHOL) 20 mg tablet Take 1 tablet by mouth daily at bedtime. ezetimibe (ZETIA) 10 mg tablet Take 1 tablet by mouth once daily. pantoprazole DR (PROTONIX) 40 mg tablet Take 1 tablet by mouth once daily. FLUoxetine (PROZAC) 40 mg capsule Take 1 capsule by mouth once daily. rimegepant (NURTEC ODT) 75 mg disintegrating tablet Take one tablet every other day promethazine (PHENERGAN) 25 mg tablet Take 1 tablet by mouth every 4 hours as needed for nausea/vomiting. (Patient not taking: Reported on 01/04/2025) No current facility-administered medications for this visit. FAMILY HISTORY Problem Relation Age of Onset Diabetes Mother Headache Mother Hypertension Mother Heart Father 3 NE's, age 52 Cancer Maternal Grandmother Uterine Blood Disease Brother Leiden factor 5, Blood Disease Other Brother's son, Leiden Factor 5 Social History Tobacco Use Smoking status: Never Smokeless tobacco: Never Vaping Use Vaping status: Never Used Substance Use Topics Alcohol use: No Drug use: No EXAM: BP 128/80 Pulse 69 Temp 36.5 ?C (97.7 ?F) (Left Tympanic) Wt 70.3 kg (155 lb) SpO2 98% BMI 27.46 kg/m? PHYSICAL EXAM: Physical Exam Vitals reviewed. Constitutional: Appearance: Normal appearance. HENT: Head: Normocephalic. Right Ear: External ear normal. There is no impacted cerumen. Left Ear: External ear normal. There is no impacted cerumen. Ears: Comments: Right TM bulging Mouth/Throat: Pharynx: No oropharyngeal exudate or posterior oropharyngeal erythema. Cardiovascular: Rate and Rhythm: Normal rate and regular rhythm. Pulses: Normal pulses. Heart sounds: Normal heart sounds. Pulmonary: Effort: Pulmonary effort is normal. Breath sounds: Wheezing present. Comments: RLL wheeze- respiratory + egophony brochial Musculoskeletal: General: Normal range of motion. Comments: Moves all ext. Without difficulty Skin: General: Skin is warm and dry. Neurological: Mental Status: She is alert and oriented to person, place, and time. Psychiatric: Mood and Affect: Mood normal. Behavior: Behavior normal. LABS: Negative RSV, Covid, and influenza ASSESSMENT/PLAN: 1. Acute bronchitis, unspecified organism - ICD9: 466.0, ICD10: J20.9 - Doxycycline 100 mg 2 x day for 10 days - Medrol dosepak Discussed treatment plan and patient voices understanding. Patient's questions answered appropriately. Medications and potential side effects were discussed and patient voices understanding. Return to the office as scheduled or as needed for worsening/no improvement. Arlet Grove APRN.[facility]02-27-2025 History of Present illness Narrative* Arlet Grove APRN.[facility] - 01/07/2025 11:02 AM EST This is a 54 year old female who presents today with: Patient presents with: Cough: Follow up from [facility] HISTORY OF PRESENT ILLNESS: Estuardo Villa is a 54 year old female. Patient presents with: Cough: Follow up from express care Persistent cough. Sick for 3 weeks. Productive yellow-green at first. Initially chest hurt + Chills then, too + Headache Stuffy sinuses No sore No body aches + tired + nausea + diarrhea PAST MEDICAL HISTORY: PAST MEDICAL HISTORY Diagnosis Date Anxiety state, unspecified Blood dyscrasia Carpal tunnel syndrome Factor V Leiden (HCC) Galactorrhea not associated with childbirth 2006 Hiatal hernia 04/13/2003 [facility] History of 1987,1989,1993 Iron deficiency anemia, unspecified Mental disorder Migraine, unspecified, without mention of intractable migraine without mention of status migrainosus Other pulmonary embolism and infarction 1987 Pulmonary embolism & factor 5 Leiden PAST SURGICAL HISTORY Procedure Laterality Date DELIVERY ONLY 1987,1989,1993 , low transverse EGD 11/24/2020 ESOPHAGOGASTRODUODENOSCOPY TRANSORAL DIAGNOSTIC 04/13/[address] [facility] Dr. Lundy ESOPHAGOGASTRODUODENOSCOPY TRANSORAL DIAGNOSTIC 12/08/2018 EGD HYSTERECTOMY HX 2005 left ovaries INCISE FINGER TENDON SHEATH Left 01/11/2021 Left middle trigger finger release GUERIN W/O FACETEC FORAMOT/DSC 11/12 VRT SGM CRV 2005 Laminectomy, cervical and titianium placed NECK SURGERY HX SKIN BIOPSY HX VAGINAL HYSTERECTOMY ALLERGIES Aleve [Naproxen Sodium], Bactrim [Sulfamethoxazole], Latex, Lipitor [Atorvastatin Calcium], Penicillins, Tape [Adhesive Tape (Rosins)], Tylenol [Acetaminophen], and Vicodin [Hydrocodone-Acetaminophen] MEDICATIONS Current Outpatient Medications Medication Sig benzonatate (TESSALON PERLE) 100 mg capsule Take 1 capsule by mouth every 8 hours as needed for cough for up to 15 days. hydrOXYzine HCl (ATARAX) 10 mg tablet Take 1-2 tablets by mouth three times a day as needed. topiramate (TOPAMAX) 100 mg tablet take 1/2 tablet by mouth IN THE MORNING and 1 tablet AT NIGHT pravastatin (PRAVACHOL) 20 mg tablet Take 1 tablet by mouth daily at bedtime. ezetimibe (ZETIA) 10 mg tablet Take 1 tablet by mouth once daily. pantoprazole DR (PROTONIX) 40 mg tablet Take 1 tablet by mouth once daily. FLUoxetine (PROZAC) 40 mg capsule Take 1 capsule by mouth once daily. rimegepant (NURTEC ODT) 75 mg disintegrating tablet Take one tablet every other day promethazine (PHENERGAN) 25 mg tablet Take 1 tablet by mouth every 4 hours as needed for nausea/vomiting. (Patient not taking: Reported on 01/04/2025) No current facility-administered medications for this visit. FAMILY HISTORY Problem Relation Age of Onset Diabetes Mother Headache Mother Hypertension Mother Heart Father 3 NE's, age 52 Cancer Maternal Grandmother Uterine Blood Disease Brother Leiden factor 5, Blood Disease Other Brother's son, Leiden Factor 5 Social History Tobacco Use Smoking status: Never Smokeless tobacco: Never Vaping Use Vaping status: Never Used Substance Use Topics Alcohol use: No Drug use: No EXAM: BP 128/80 Pulse 69 Temp 36.5 C (97.7 F) (Left Tympanic) Wt 70.3 kg (155 lb) SpO2 98% BMI 27.46 kg/m PHYSICAL EXAM: Physical Exam Vitals reviewed. Constitutional: Appearance: Normal appearance. HENT: Head: Normocephalic. Right Ear: External ear normal. There is no impacted cerumen. Left Ear: External ear normal. There is no impacted cerumen. Ears: Comments: Right TM bulging Mouth/Throat: Pharynx: No oropharyngeal exudate or posterior oropharyngeal erythema. Cardiovascular: Rate and Rhythm: Normal rate and regular rhythm. Pulses: Normal pulses. Heart sounds: Normal heart sounds. Pulmonary: Effort: Pulmonary effort is normal. Breath sounds: Wheezing present. Comments: RLL wheeze- respiratory + egophony brochial Musculoskeletal: General: Normal range of motion. Comments: Moves all ext. Without difficulty Skin: General: Skin is warm and dry. Neurological: Mental Status: She is alert and oriented to person, place, and time. Psychiatric: Mood and Affect: Mood normal. Behavior: Behavior normal. LABS: Negative RSV, Covid, and influenza ASSESSMENT/PLAN: 1. Acute bronchitis, unspecified organism - ICD9: 466.0, ICD10: J20.9 - Doxycycline 100 mg 2 x day for 10 days - Medrol dosepak Discussed treatment plan and patient voices understanding. Patient's questions answered appropriately. Medications and potential side effects were discussed and patient voices understanding. Return to the office as scheduled or as needed for worsening/no improvement. [place] APRN.MAN documented in this encounterSt. Anthony'[facility]02-24-[facility]25 History of Present illness Narrative* Jimmy Aparicio RT(R) - 01/04/2025 10:30 AM EST Radiology Service Progress Note PATIENT NAME: Estuardo Villa DATE OF SERVICE: January 04, 2025 TIME: 10:43 AM PATIENT IDENTITY VERIFICATION COMPLETED USING TWO (2) IDENTIFIERS: Name and Date of confirmedby patient verbally. FALL SCREENING: Has the patient had 2 falls in the last year or 1 fall with injury or currently using an Ambulatory Assistive Device (Walker, Cane, Wheelchair, Crutches, etc.)? No PATIENT GENDER DATA: Assigned female at . status: : No status:NO. PATIENT RELEVANT IMPLANT DATA REVIEWED: Yes PATIENT PRESENTS WITH AN IMPLANTABLE OR ATTACHED ARABIC LINGUIST: No RADIOLOGY DEPARTMENT: General X-ray: Exam(s) Completed: Chest X-Ray PERIPHERAL IV DATA: Not applicable SIGNED BY: RT Dulce Maria(Juan Miguel) January 04, 2025 10:43 AM documented in this encounterSt. Anthony'S Hospital02-24-2025 NoteHNO ID: [id number] Author: JIMMY APARICIO RT(R) Service: ? Author Type: Cross Country Truck Driver Type: Progress Notes Filed: 01/04/2025 10:49 Note Text: Radiology Service Progress Note PATIENT NAME: Estuardo Villa DATE OF SERVICE: January 04, 2025 TIME: 10:43 AM PATIENT IDENTITY VERIFICATION COMPLETED USING TWO (2) IDENTIFIERS: Name and Date of confirmed by patient verbally. FALL SCREENING: Has the patient had 2 falls in the last year or 1 fall with injury or currently using an Ambulatory Assistive Device (Walker, Cane, Wheelchair, Crutches, etc.)? No PATIENT GENDER DATA: Assigned female at . status: : No status: NO. PATIENT RELEVANT IMPLANT DATA REVIEWED: Yes PATIENT PRESENTS WITH AN IMPLANTABLE OR ATTACHED ARABIC LINGUIST: No RADIOLOGY DEPARTMENT: General X-ray: Exam(s) Completed: Chest X-Ray PERIPHERAL IV DATA: Not applicable SIGNED BY: RT Dulce Maria(Juan Miguel) January 04, 2025 10:43 [facility]02-24-2025 NoteHNO ID: [id number] Author: NELSON MI MD Service: ? Author Type: Physician Type: Progress Notes Filed: 01/04/2025 11:09 Note Text: Patient presents with: Cough: x over 2 weeks HPI: Coughing for over 2 weeks. Sent here by work because of bad coughing. She had an initial fever (resolved last week). Production is reduced. Chest pain with cough is resolved. Positive symptoms: Cough, Shortness of breath, Chest pain, Fever, Negative symptoms: Sore throat, Nasal Congestion, Rhinorrhea, Vomiting, Diarrhea, OTC: none currently, took pain reliever when chest was hurting. Denies asthma, smoking, or COPD. She does have a history of pulmonary embolism. PAST MEDICAL HISTORY Diagnosis Date Anxiety state, unspecified Blood dyscrasia Carpal tunnel syndrome Factor V Leiden (HCC) Galactorrhea not associated with childbirth 2006 Hiatal hernia 04/13/2003 [facility] History of 1987,1989,1993 Iron deficiency anemia, unspecified Mental disorder Migraine, unspecified, without mention of intractable migraine without mention of status migrainosus Other pulmonary embolism and infarction 1987 Pulmonary embolism AND factor 5 Leiden MEDICATIONS: Current Outpatient Medications Medication Sig hydrOXYzine HCl (ATARAX) 10 mg tablet Take 1-2 tablets by mouth three times a day as needed. topiramate (TOPAMAX) 100 mg tablet take 1/2 tablet by mouth IN THE MORNING and 1 tablet AT NIGHT pravastatin (PRAVACHOL) 20 mg tablet Take 1 tablet by mouth daily at bedtime. ezetimibe (ZETIA) 10 mg tablet Take 1 tablet by mouth once daily. pantoprazole DR (PROTONIX) 40 mg tablet Take 1 tablet by mouth once daily. FLUoxetine (PROZAC) 40 mg capsule Take 1 capsule by mouth once daily. rimegepant (NURTEC ODT) 75 mg disintegrating tablet Take one tablet every other day promethazine (PHENERGAN) 25 mg tablet Take 1 tablet by mouth every 4 hours as needed for nausea/vomiting. (Patient not taking: Reported on 01/04/2025) No current facility-administered medications for this visit. ALLERGIES: ALLERGIES Allergen Reactions Aleve [Naproxen Sod* GI Upset Bactrim [Sulfametho* Intolerance dizziness and upset stomach Latex Rash Lipitor [Atorvastat* Intolerance Elevated Liver enzymes Penicillins Unknown Tape [Adhesive Tape* Rash Tylenol [Acetaminop* Other: See Comments Nausea Vicodin [Hydrocodon* Vomiting VITALS: BP 126/82 Pulse 70 Temp 36.2 ?C (97.2 ?F) Resp 16 Wt 69.8 kg (153 lb 14.1 oz) SpO2 99% BMI 27.26 kg/m? PHYSICAL EXAM: GEN: Pleasant, intermittently coughing but otherwise no acute distress HEENT: PERRL, EOMI, conjunctiva clear Ears: canals clear. TMs without erythema, bulge, or effusion Sinuses: non-tender frontal sinus, non-tender maxillary sinuses Throat: moist mucous membranes, no erythema, no exudate Neck: supple, no thyromegaly, no lymphadenopathy HEART: regular rate, regular rhythm, no murmurs LUNGS: fine right lower lung crackles, no increased WOB ASSESSMENT/PLAN: 1. Subacute cough - ICD9: 786.2, ICD10: R05.2 - XR CHEST 2V FRONTAL/LAT - negative Discussed bronchitis. Majority of cases are caused by viral infection. Treatment is supportive with cough suppressant. Cough can take up to 5 weeks to resolve. She has been fever free since last week and is unlikely to be contagious. - BENZONATATE 100 MG CAPSULE Follow up with worsening cough, worsening shortness of breath, increasing chest pain, increasing phlegm production, or late onset fever. Nelson Mi, [facility]02-24-2025 History of Present illness Narrative* Nelson Mi MD - 01/04/2025 10:10 AM EST Patient presents with: Cough: x over 2 weeks HPI: Coughing for over 2 weeks. Sent here by work because of bad coughing. She had an initial fever (resolved last week). Production is reduced. Chest pain with cough is resolved. Positive symptoms: Cough, Shortness of breath, Chest pain, Fever, Negative symptoms: Sore throat, Nasal Congestion, Rhinorrhea, Vomiting, Diarrhea, OTC: none currently, took pain reliever when chest was hurting. Denies asthma, smoking, or COPD. She does have a history of pulmonary embolism. PAST MEDICAL HISTORY Diagnosis Date Anxiety state, unspecified Blood dyscrasia Carpal tunnel syndrome Factor V Leiden (HCC) Galactorrhea not associated with childbirth 2006 Hiatal hernia 04/13/2003 [facility] History of 1987,1989,1993 Iron deficiency anemia, unspecified Mental disorder Migraine, unspecified, without mention of intractable migraine without mention of status migrainosus Other pulmonary embolism and infarction 1987 Pulmonary embolism & factor 5 Leiden MEDICATIONS: Current Outpatient Medications Medication Sig hydrOXYzine HCl (ATARAX) 10 mg tablet Take 1-2 tablets by mouth three times a day as needed. topiramate (TOPAMAX) 100 mg tablet take 1/2 tablet by mouth IN THE MORNING and 1 tablet AT NIGHT pravastatin (PRAVACHOL) 20 mg tablet Take 1 tablet by mouth daily at bedtime. ezetimibe (ZETIA) 10 mg tablet Take 1 tablet by mouth once daily. pantoprazole DR (PROTONIX) 40 mg tablet Take 1 tablet by mouth once daily. FLUoxetine (PROZAC) 40 mg capsule Take 1 capsule by mouth once daily. rimegepant (NURTEC ODT) 75 mg disintegrating tablet Take one tablet every other day promethazine (PHENERGAN) 25 mg tablet Take 1 tablet by mouth every 4 hours as needed for nausea/vomiting. (Patient not taking: Reported on 01/04/2025) No current facility-administered medications for this visit. ALLERGIES: ALLERGIES Allergen Reactions Aleve [Naproxen Sod* GI Upset Bactrim [Sulfametho* Intolerance dizziness and upset stomach Latex Rash Lipitor [Atorvastat* Intolerance Elevated Liver enzymes Penicillins Unknown Tape [Adhesive Tape* Rash Tylenol [Acetaminop* Other: See Comments Nausea Vicodin [Hydrocodon* Vomiting VITALS: BP 126/82 Pulse 70 Temp 36.2 C (97.2 F) Resp 16 Wt 69.8 kg (153 lb 14.1 oz) SpO2 99% BMI 27.26 kg/m PHYSICAL EXAM: GEN: Pleasant, intermittently coughing but otherwise no acute distress HEENT: PERRL, EOMI, conjunctiva clear Ears: canals clear. TMs without erythema, bulge, or effusion Sinuses: non-tender frontal sinus, non-tender maxillary sinuses Throat: moist mucous membranes, no erythema, no exudate Neck: supple, no thyromegaly, no lymphadenopathy HEART: regular rate, regular rhythm, no murmurs LUNGS: fine right lower lung crackles, no increased WOB ASSESSMENT/PLAN: 1. Subacute cough - ICD9: 786.2, ICD10: R05.2 - XR CHEST 2V FRONTAL/LAT - negative Discussed bronchitis. Majority of cases are caused by viral infection. Treatment is supportive withcough suppressant. Cough can take up to 5 weeks to resolve. She has been fever free since last weekand is unlikely to be contagious. - BENZONATATE 100 MG CAPSULE Follow up with worsening cough, worsening shortness of breath, increasing chest pain, increasing phlegm production, or late onset fever. Nelson Mi MD documented in this encounterSt. [facility]11-26-2024 History of Present illness Narrative* Jimmy Aparicio RT(R) - 10/06/2024 12:00 PM EST Radiology Service Progress Note PATIENT NAME: Estuardo Villa DATE OF SERVICE: October 06, 2024 TIME: 12:25 PM PATIENT IDENTITY VERIFICATION COMPLETED USING TWO (2) IDENTIFIERS: Name and Date of confirmedby patient verbally. FALL SCREENING: Has the patient had 2 falls in the last year or 1 fall with injury or currently using an Ambulatory Assistive Device (Walker, Cane, Wheelchair, Crutches, etc.)? No PATIENT GENDER DATA: Female. status: : No status: NO. PATIENT RELEVANT IMPLANT DATA REVIEWED: Yes PATIENT PRESENTS WITH AN IMPLANTABLE OR ATTACHED ARABIC LINGUIST: No RADIOLOGY DEPARTMENT: General X-ray: Exam(s) Completed: Chest X-Ray PERIPHERAL IV DATA: Not applicable SIGNED BY: RT Dulce Maria(Juan Miguel) October 06, 2024 12:25 PM documented in this encounterSt. Anthony'[facility]11-26-2024 NoteHNO ID: [id number] Author: JIMMY APARICIO RT(Juan Miguel) Service: ? Author Type: Cross Country Truck Driver Type: Progress Notes Filed: 10/06/2024 12:32 Note Text: Radiology Service Progress Note PATIENT NAME: Estuardo Villa DATE OF SERVICE: October 06, 2024 TIME: 12:25 PM PATIENT IDENTITY VERIFICATION COMPLETED USING TWO (2) IDENTIFIERS: Name and Date of confirmed by patient verbally. FALL SCREENING: Has the patient had 2 falls in the last year or 1 fall with injury or currently using an Ambulatory Assistive Device (Walker, Cane, Wheelchair, Crutches, etc.)? No PATIENT GENDER DATA: Female. status: : No status: NO. PATIENT RELEVANT IMPLANT DATA REVIEWED: Yes PATIENT PRESENTS WITH AN IMPLANTABLE OR ATTACHED ARABIC LINGUIST: No RADIOLOGY DEPARTMENT: General X-ray: Exam(s) Completed: Chest X-Ray PERIPHERAL IV DATA: Not applicable SIGNED BY: Jimmy Aparicio RT(R) October 06, 2024 12:25 [facility]11-26-2024 NoteHNO ID: [id number] Author: LISA CORTES PA Service: ? Author Type: Physician Healthcare Administration Intern Type: Progress Notes Filed: 10/06/2024 12:40 Note Text: This note was created using Transifexriter. Subjective Estuardo Villa is a 53 year old female. HPI 53-year-old female presents for cough, chest congestion x 4 to 5 days. Patient states last week she started feeling sick. She has had fatigue, cough and chest congestion. She denies any shortness of breath, just feels like there is phlegm in her chest. She states her cough is mostly dry, feels like phlegm is stuck. She denies any fevers, nasal congestion, sore throat. She did have COVID about a month ago, states although symptoms resolved. She has taken Tylenol [id number], without much improvement in symptoms. PAST MEDICAL HISTORY Diagnosis Date Anxiety state, unspecified Blood dyscrasia Carpal tunnel syndrome Factor V Leiden (HCC) Galactorrhea not associated with childbirth 2006 Hiatal hernia 04/13/2003 [facility] History of 1987,1989,1993 Iron deficiency anemia, unspecified Mental disorder Migraine, unspecified, without mention of intractable migraine without mention of status migrainosus Other pulmonary embolism and infarction 1987 Pulmonary embolism AND factor 5 Leiden PAST SURGICAL HISTORY Procedure Laterality Date DELIVERY ONLY 1987,1989,1993 , low transverse EGD 11/24/2020 ESOPHAGOGASTRODUODENOSCOPY TRANSORAL DIAGNOSTIC 04/13/[address] [facility] Dr. Lundy ESOPHAGOGASTRODUODENOSCOPY TRANSORAL DIAGNOSTIC 12/08/2018 EGD HYSTERECTOMY HX 2005 left ovaries INCISE FINGER TENDON SHEATH Left 01/11/2021 Left middle trigger finger release GUERIN W/O FACETEC FORAMOT/DSC 1/2 VRT SGM CRV 2006 Laminectomy, cervical and titianium placed NECK SURGERY HX SKIN BIOPSY HX VAGINAL HYSTERECTOMY ALLERGIES Aleve [Naproxen Sodium], Bactrim [Sulfamethoxazole], Latex, Lipitor [Atorvastatin Calcium], Penicillins, Tape [Adhesive Tape (Rosins)], Tylenol [Acetaminophen], and Vicodin [Hydrocodone-Acetaminophen] MEDICATIONS hydrOXYzine HCl (ATARAX) 10 mg tablet Take 1-2 tablets by mouth three times a day as needed. topiramate (TOPAMAX) 100 mg tablet take 1/2 tablet by mouth IN THE MORNING and 1 tablet AT NIGHT pravastatin (PRAVACHOL) 20 mg tablet Take 1 tablet by mouth daily at bedtime. ezetimibe (ZETIA) 10 mg tablet Take 1 tablet by mouth once daily. pantoprazole DR (PROTONIX) 40 mg tablet Take 1 tablet by mouth once daily. FLUoxetine (PROZAC) 40 mg capsule Take 1 capsule by mouth once daily. promethazine (PHENERGAN) 25 mg tablet Take 1 tablet by mouth every 4 hours as needed for nausea/vomiting. rimegepant (NURTEC ODT) 75 mg disintegrating tablet Take one tablet every other day FAMILY HISTORY Problem Relation Age of Onset Diabetes Mother Headache Mother Hypertension Mother Heart Father 3 NE's, age 52 Cancer Maternal Grandmother Uterine Blood Disease Brother Leiden factor 5, Blood Disease Other Brother's son, Leiden Factor 5 Social History Tobacco Use Smoking status: Never Smokeless tobacco: Never Vaping Use Vaping status: Never Used Substance Use Topics Alcohol use: No Drug use: No Review of Systems Constitutional: Positive for fatigue. Negative for chills and fever. HENT: Negative for congestion, ear pain and sore throat. Respiratory: Positive for cough. Negative for shortness of breath. Cardiovascular: Negative for chest pain. Gastrointestinal: Negative for diarrhea and vomiting. Musculoskeletal: Positive for myalgias. Objective BP 118/78 Pulse 70 Temp 37 ?C (98.6 ?F) (Tympanic) Resp 18 Wt 70.5 kg (155 lb 6.8 oz) SpO2 97% BMI 27.53 kg/m? Physical Exam Vitals and nursing note reviewed. Constitutional: General: She is not in acute distress. Appearance: Normal appearance. She is not toxic-appearing. HENT: Right Ear: Tympanic membrane and ear canal normal. Left Ear: Tympanic membrane and ear canal normal. Nose: Nose normal. Mouth/Throat: Mouth: Mucous membranes are moist. Eyes: Conjunctiva/sclera: Conjunctivae normal. Cardiovascular: Rate and Rhythm: Normal rate and regular rhythm. Pulmonary: Effort: Pulmonary effort is normal. Breath sounds: Normal breath sounds. No wheezing, rhonchi or rales. Skin: General: Skin is warm and dry. Neurological: Mental Status: She is alert. Assessment and Plan ASSESSMENT/PLAN: 1. Acute cough - ICD9: 786.2, ICD10: R05.1 (primary diagnosis) - XR CHEST 2V FRONTAL/LAT-no acute abnormality -Suspect viral -Rx Tessalon Perles 2. URI, acute - ICD9: 465.9, ICD10: J06.9 - Discussed viral etiology and rationale for treatment. - Symptomatic treatment with prn analgesia - Supportive care with fluids and rest - The patient may also use OTC cough and cold meds as needed. Diagnosis and treatment plan were discussed and questions were answered to the patient's satisfaction. Pt (more content not included)...[facility]11-26-2024 History of Present illness Narrative* Lisa Cortes PA - 10/06/2024 11:54 AM EST This note was created using Transifexriter. Subjective Estuardo Villa is a 53 year old female. HPI 53-year-old female presents for cough, chest congestion x 4 to 5 days. Patient states last weekshe started feeling sick. She has had fatigue, cough and chest congestion. She denies any shortnessof breath, just feels like there is phlegm in her chest. She states her cough is mostly dry, feels like phlegm is stuck. She denies any fevers, nasal congestion, sore throat. She did have COVID abouta month ago, states although symptoms resolved. She has taken Tylenol [id number], without much improvement in symptoms. PAST MEDICAL HISTORY Diagnosis Date Anxiety state, unspecified Blood dyscrasia Carpal tunnel syndrome Factor V Leiden (HCC) Galactorrhea not associated with childbirth 2007 Hiatal hernia 04/13/2003 [facility] History of 1987,1989,1993 Iron deficiency anemia, unspecified Mental disorder Migraine, unspecified, without mention of intractable migraine without mention of status migrainosus Other pulmonary embolism and infarction 1987 Pulmonary embolism & factor 5 Leiden PAST SURGICAL HISTORY Procedure Laterality Date DELIVERY ONLY 1987,1989,1993 , low transverse EGD 11/24/2020 ESOPHAGOGASTRODUODENOSCOPY TRANSORAL DIAGNOSTIC 04/13/[address] [facility] Dr. Lundy ESOPHAGOGASTRODUODENOSCOPY TRANSORAL DIAGNOSTIC 12/08/2018 EGD HYSTERECTOMY HX 2005 left ovaries INCISE FINGER TENDON SHEATH Left 01/11/2021 Left middle trigger finger release GUERIN W/O FACETEC FORAMOT/DSC 11/12 VRT SGM CRV 2005 Laminectomy, cervical and titianium placed NECK SURGERY HX SKIN BIOPSY HX VAGINAL HYSTERECTOMY ALLERGIES Aleve [Naproxen Sodium], Bactrim [Sulfamethoxazole], Latex, Lipitor [Atorvastatin Calcium], Penicillins, Tape [Adhesive Tape (Rosins)], Tylenol [Acetaminophen], and Vicodin [Hydrocodone-Acetaminophen] MEDICATIONS hydrOXYzine HCl (ATARAX) 10 mg tablet Take 1-2 tablets by mouth three times a day as needed. topiramate (TOPAMAX) 100 mg tablet take 1/2 tablet by mouth IN THE MORNING and 1 tablet AT NIGHT pravastatin (PRAVACHOL) 20 mg tablet Take 1 tablet by mouth daily at bedtime. ezetimibe (ZETIA) 10 mg tablet Take 1 tablet by mouth once daily. pantoprazole DR (PROTONIX) 40 mg tablet Take 1 tablet by mouth once daily. FLUoxetine (PROZAC) 40 mg capsule Take 1 capsule by mouth once daily. promethazine (PHENERGAN) 25 mg tablet Take 1 tablet by mouth every 4 hours as needed for nausea/vomiting. rimegepant (NURTEC ODT) 75 mg disintegrating tablet Take one tablet every other day FAMILY HISTORY Problem Relation Age of Onset Diabetes Mother Headache Mother Hypertension Mother Heart Father 3 NE's, age 52 Cancer Maternal Grandmother Uterine Blood Disease Brother Leiden factor 5, Blood Disease Other Brother's son, Leiden Factor 5 Social History Tobacco Use Smoking status: Never Smokeless tobacco: Never Vaping Use Vaping status: Never Used Substance Use Topics Alcohol use: No Drug use: No Review of Systems Constitutional: Positive for fatigue. Negative for chills and fever. HENT: Negative for congestion, ear pain and sore throat. Respiratory: Positive for cough. Negative for shortness of breath. Cardiovascular: Negative for chest pain. Gastrointestinal: Negative for diarrhea and vomiting. Musculoskeletal: Positive for myalgias. Objective BP 118/78 Pulse 70 Temp 37 C (98.6 F) (Tympanic) Resp 18 Wt 70.5 kg (155 lb 6.8 oz) SpO2 97% BMI 27.53 kg/m Physical Exam Vitals and nursing note reviewed. Constitutional: General: She is not in acute distress. Appearance: Normal appearance. She is not toxic-appearing. HENT: Right Ear: Tympanic membrane and ear canal normal. Left Ear: Tympanic membrane and ear canal normal. Nose: Nose normal. Mouth/Throat: Mouth: Mucous membranes are moist. Eyes: Conjunctiva/sclera: Conjunctivae normal. Cardiovascular: Rate and Rhythm: Normal rate and regular rhythm. Pulmonary: Effort: Pulmonary effort is normal. Breath sounds: Normal breath sounds. No wheezing, rhonchi or rales. Skin: General: Skin is warm and dry. Neurological: Mental Status: She is alert. Assessment and Plan ASSESSMENT/PLAN: 1. Acute cough - ICD9: 786.2, ICD10: R05.1 (primary diagnosis) - XR CHEST 2V FRONTAL/LAT-no acute abnormality -Suspect viral -Rx Tessalon Perlmoody 2. URI, acute - ICD9: 465.9, ICD10: J06.9 - Discussed viral etiology and rationale for treatment. - Symptomatic treatment with prn analgesia - Supportive care with fluids and rest - The patient may also use OTC cough and cold meds as needed. Diagnosis and treatment plan were discussed and questions were answered to the patient's satisfaction. Pt acknowledged understanding of concepts and follow up plan. Specific signs and symptoms that would indicate the need for higher level of care were discussed in detail warranting prompt ER evaluation. DELORIS Alonso documented in this encounterSt. [facility]11-08-2024 NoteHNO ID: [id number] Author: AMBER LENZ APRN.DATER ASSEMBLER Service: ? Author Type: Nurse Practitioner Type: Progress Notes Filed: 09/18/2024 13:23 Note Text: Logged in for virtual visit at 1:11 and patient logged out prior without being seen. Links resent via text and email for patient to log back in. Pt did not re-enter visit. Amber Lenz APRN.CNP The patient left without being seen.[facility]11-08-2024 History of Present illness Narrative* Amber Lenz APRN.CNP - 09/18/2024 1:20 PM EST Logged in for virtual visit at 1:11 and patient logged out prior without being seen. Links resent via text and email for patient to log back in. Pt did not re- enter visit. Amber Lenz APRN.CNP The patient left without being seen. documented in this encounterSt. Anthony'S Hospital11-04-2024 NoteHNO ID: [id number] Author: ROLLY KEEN APRN.CNP Service: ? Author Type: Nurse Practitioner Type: Progress Notes Filed: 09/14/2024 10:21 Note Text: This note was created using [employer]Method. Subjective Estuardo Villa is a 53 year old female. HPI Three days ago pt developed uri symptoms and today tested positive for Covid. She presents today stating that she needs a note for work. Review of Systems Constitutional: Positive for fatigue. Negative for fever. HENT: Positive for congestion. Respiratory: Positive for cough. Objective BP 118/76 Pulse 68 Temp 37.3 ?C (99.2 ?F) (Tympanic) Resp 14 Wt 70 kg (154 lb 5.2 oz) SpO2 98% BMI 27.34 kg/m? Physical Exam Vitals and nursing note reviewed. Constitutional: General: She is not in acute distress. Appearance: Normal appearance. She is not ill-appearing. HENT: Head: Normocephalic. Mouth/Throat: Mouth: Mucous membranes are moist. Eyes: Conjunctiva/sclera: Conjunctivae normal. Cardiovascular: Rate and Rhythm: Normal rate and regular rhythm. Pulmonary: Effort: Pulmonary effort is normal. Breath sounds: Normal breath sounds. Musculoskeletal: General: Normal range of motion. Cervical back: Normal range of motion. Skin: General: Skin is warm and dry. Neurological: General: No focal deficit present. Mental Status: She is alert. Psychiatric: Mood and Affect: Mood normal. Behavior: Behavior normal. Assessment and Plan ASSESSMENT/PLAN: 1. COVID-19 - ICD9: 079.89, ICD10: U07.1 Discussed retesting for COVID but as patient did a positive home test patient preferred not to be retested. We did discuss treatment with Paxlovid which she prefers not to take at this time . she was written off of work until the per her job's policy. She is to follow-up with PCP and return for any new or worsening concerns. Rolly Keen APRN.MANK[facility]11-[facility] History of Present illness Narrative* Rolly Keen APRN.MAN - 09/14/2024 10:13 AM EST This note was created using [employer]ote[employer]. Subjective Estuardo Villa is a 53 year old female. HPI Three days ago pt developed uri symptoms and today tested positive for Covid. She presents today stating that she needs a note for work. Review of Systems Constitutional: Positive for fatigue. Negative for fever. HENT: Positive for congestion. Respiratory: Positive for cough. Objective BP 118/76 Pulse 68 Temp 37.3 C (99.2 F) (Tympanic) Resp 14 Wt 70 kg (154 lb 5.2 oz) SpO2 98% BMI 27.34 kg/m Physical Exam Vitals and nursing note reviewed. Constitutional: General: She is not in acute distress. Appearance: Normal appearance. She is not ill-appearing. HENT: Head: Normocephalic. Mouth/Throat: Mouth: Mucous membranes are moist. Eyes: Conjunctiva/sclera: Conjunctivae normal. Cardiovascular: Rate and Rhythm: Normal rate and regular rhythm. Pulmonary: Effort: Pulmonary effort is normal. Breath sounds: Normal breath sounds. Musculoskeletal: General: Normal range of motion. Cervical back: Normal range of motion. Skin: General: Skin is warm and dry. Neurological: General: No focal deficit present. Mental Status: She is alert. Psychiatric: Mood and Affect: Mood normal. Behavior: Behavior normal. Assessment and Plan ASSESSMENT/PLAN: 1. COVID-19 - ICD9: 079.89, ICD10: U07.1 Discussed retesting for COVID but as patient did a positive home test patient preferred not to be retested. We did discuss treatment with Angelica which she prefers not to take at this time . she waswritten off of work until the per her job's policy. She is to follow-up with PCP and return for any new or worsening concerns. Rolly Keen APRN.CNP documented in this encounterSt. [facility] Telephone encounter Note * Telephone Encounter - Lorelei Barron OCCA - 08/28/2024 8:17 AM EDT Prescription Refill Information The patient has been identified by name and date of : Yes Caregiver verified no other encounters exist for this prescription request: Yes Caregiver confirmed with patient/requestor that no other refills are due, in the near future, with this provider at this time: Yes The last office visit in the department: 02/26/2024 Plan: All options for treatment discussed. Preventative: Topamax 150 mg, Ajovy Abortive: Nurtec Follow-up: 3 months Does the patient have a future office visit with this provider/department: No Requested Prescriptions Pending Prescriptions Disp Refills topiramate (TOPAMAX) 100 mg tablet [Pharmacy Med Name: TOPIRAMATE 100 MG TABLET] 45 tablet 3 Sig: take 1/2 tablet by mouth IN THE MORNING and 1 tablet AT NIGHT TIMUR Medina August 28, 2024 8:[address] [facility] Miscellaneous Notes* Telephone Encounter - Lorelei Barron OCCA - 08/28/2024 8:17 AM EDT Prescription Refill Information The patient has been identified by name and date of : Yes Caregiver verified no other encounters exist for this prescription request: Yes Caregiver confirmed with patient/requestor that no other refills are due, in the near future, with this provider at this time: Yes The last office visit in the department: 02/26/2024 Plan: All options for treatment discussed. Preventative: Topamax 150 mg, Ajovy Abortive: Nurtec Follow-up: 3 months Does the patient have a future office visit with this provider/department: No Requested Prescriptions Pending Prescriptions Disp Refills topiramate (TOPAMAX) 100 mg tablet [Pharmacy Med Name: TOPIRAMATE 100 MG TABLET] 45 tablet 3 Sig: take 1/2 tablet by mouth IN THE MORNING and 1 tablet AT NIGHT TIMUR Medina August 28, 2024 8:17 AM documented in this encounterSt. Anthony'[facility]09-18-2024 Telephone encounter Note * Telephone Encounter - Ale Kennedy - 07/29/2024 10:43 AM EDT Prescription Refill Information The patient has been identified by name and date of : Yes Caregiver verified no other encounters exist for this prescription request: Yes Caregiver confirmed with patient/requestor that no other refills are due, in the near future, with this provider at this time: Yes The last office visit in the department: 06-29-24 Does the patient have a future office visit with this provider/department: Yes Requested Prescriptions Pending Prescriptions Disp Refills pravastatin (PRAVACHOL) 20 mg tablet 90 tablet 3 Sig: Take 1 tablet by mouth daily at bedtime. Ale Magallon July 29, 2024 10:[address] [facility]-18-[facility] Miscellaneous Notes* Telephone Encounter - lAe Kennedy - 07/29/2024 10:43 AM EDT Prescription Refill Information The patient has been identified by name and date of : Yes Caregiver verified no other encounters exist for this prescription request: Yes Caregiver confirmed with patient/requestor that no other refills are due, in the near future, with this provider at this time: Yes The last office visit in the department: 06-29-24 Does the patient have a future office visit with this provider/department: Yes Requested Prescriptions Pending Prescriptions Disp Refills pravastatin (PRAVACHOL) 20 mg tablet 90 tablet 3 Sig: Take 1 tablet by mouth daily at bedtime. Ale Magallon July 29, 2024 10:45 AM documented in this encounterSt. Anthony'[facility]08-20-2024 Telephone encounter Note * Telephone Encounter - Amber Lenz APRN.CNP - 06/30/2024 12:57 PM EDT Script sent. [facility] Miscellaneous Notes* Telephone Encounter - Amber Lenz APRN.CNP - 06/30/2024 12:57 PM EDT Script sent. * Telephone Encounter - Ruben Ospina LPN - 06/30/2024 12:04 PM EDT Pt notified of results/provider instructions. She verbalized understanding. She is willing to try Zetia, please send rx to pharmacy. Schedulers please assist pt with scheduling appt with lipid clinic. Ruben Ospina LPN * Telephone Encounter - Amber Lenz APRN.CNP - 06/30/2024 8:06 AM EDT Can please let patient know that I received her lab results. Her cholesterol is very high. Is she still taking the pravastatin? I would also consider adding an additional medication called zetia (ezetimibe) to help lower the cholesterol. Please let me know if I can send this in. I would strongly suggest that she follow-up with the lipid clinic (the referral was placed yesterday). Please help schedule. The repeat calcium, parathyroid hormone, and vitamin D levels were okay. Amber Lenz APRN.MAN documented in this encounterSt. Anthony'S [facility]08-20-2024 Telephone encounter Note * Telephone Encounter - Ruben Ospina LPN - 06/30/2024 12:04 PM EDT Pt notified of results/provider instructions. She verbalized understanding. She is willing to try Zetia, please send rx to pharmacy. Schedulers please assist pt with scheduling appt with lipid clinic. Ruben Ospina LPN [facility]-2024 Telephone encounter Note* Telephone Encounter - Amber Lenz APRN.CNP - 06/30/2024 8:06 AM EDT Can please let patient know that I received her lab results. Her cholesterol is very high. Is she still taking the pravastatin? I would also consider adding an additional medication called zetia (ezetimibe) to help lower the cholesterol. Please let me know if I can send this in. I would strongly suggest that she follow-up with the lipid clinic (the referral was placed yesterday). Please help schedule. The repeat calcium, parathyroid hormone, and vitamin D levels were okay. Amber Lenz APRN.MAN [facility]-20[facility] Instructions* Patient Instructions* Amber Lenz APRN.CNP - 06/29/2024 10:48 AM EDT Try the hydroxyzine. Get the repeat labwork. Recheck in 6 weeks. documented in this encounterSt. Anthony'S Hospital08-19-2024 History of Present illness Narrative* Amber Lenz APRN.CNP - 06/29/2024 10:21 AM EDT This is a 53 year old female who presents today with: Patient presents with: Recheck: 2 week follow up HISTORY OF PRESENT ILLNESS: Estuardo Villa is a 53 year old female. Patient presents with: Recheck: 2 week follow up Pt presents today for 2 week recheck. Refers that anxiety has been bad. Mother recently. Going through a divorce. Not sleeping well. Can fall asleep, but then will wake up and cannot fall back asleep. Currently taking prozac in the morning. Appetite -- decreased. GERD: Improved since back on the medication. No further black stool. Ifob was negative. Hyperlipidemia. Due for labs. Refers 14 year old grandchild recently dx with hyperlipidemia. PAST MEDICAL HISTORY: PAST MEDICAL HISTORY No date: Anxiety state, unspecified No date: Blood dyscrasia No date: Carpal tunnel syndrome No date: Factor V Leiden ([facility]) 2007: Galactorrhea not associated with childbirth 04/13/2003: Hiatal hernia Comment: EGD- [facility] 1987,1989,1993: History of No date: Iron deficiency anemia, unspecified No date: Mental disorder No date: Migraine, unspecified, without mention of intractable migraine without mention of status migrainosus 1987: Other pulmonary embolism and infarction Comment: Pulmonary embolism & factor 5 Leiden PAST SURGICAL HISTORY 1987,1989,1993: DELIVERY ONLY Comment: , low transverse 11/24/2020: EGD 04/13/2003: ESOPHAGOGASTRODUODENOSCOPY TRANSORAL DIAGNOSTIC Comment: EGD [facility] Dr. Lundy 12/08/2018: ESOPHAGOGASTRODUODENOSCOPY TRANSORAL DIAGNOSTIC Comment: EGD 2005: HYSTERECTOMY HX Comment: left ovaries 01/11/2021: INCISE FINGER TENDON SHEATH; Left Comment: Left middle trigger finger release 2006: GUERIN W/O FACETEC FORAMOT/DSC 1/2 VRT SGM CRV Comment: Laminectomy, cervical and titianium placed No date: NECK SURGERY HX No date: SKIN BIOPSY HX No date: VAGINAL HYSTERECTOMY ALLERGIES Aleve [Naproxen Sodium], Bactrim [Sulfamethoxazole], Latex, Lipitor [Atorvastatin Calcium], Penicillins, Tape [Adhesive Tape (Rosins)], Tylenol [Acetaminophen], and Vicodin [Hydrocodone-Acetaminophen] MEDICATIONS Current Outpatient Medications Medication Sig pantoprazole DR (PROTONIX) 40 mg tablet Take 1 tablet by mouth once daily. FLUoxetine (PROZAC) 40 mg capsule Take 1 capsule by mouth once daily. promethazine (PHENERGAN) 25 mg tablet Take 1 tablet by mouth every 4 hours as needed for nausea/vomiting. topiramate (TOPAMAX) 100 mg tablet Take half a tablet (50mg) in the morning and one tablet (100mg) at night. rimegepant (NURTEC ODT) 75 mg disintegrating tablet Take one tablet every other day pravastatin (PRAVACHOL) 20 mg tablet Take 1 tablet by mouth daily at bedtime. No current facility-administered medications for this visit. FAMILY HISTORY Problem Relation Age of Onset Diabetes Mother Headache Mother Hypertension Mother Heart Father 3 NE's, age 52 Cancer Maternal Grandmother Uterine Blood Disease Brother Leiden factor 5, Blood Disease Other Brother's son, Leiden Factor 5 Social History Tobacco Use Smoking status: Never Smokeless tobacco: Never Vaping Use Vaping status: Never Used Substance Use Topics Alcohol use: No Drug use: No EXAM: BP 134/86 Pulse 72 Resp 16 SpO2 97% PHYSICAL EXAM: General Appearance: Well appearing, alert, in no acute distress, well-hydrated, well nourished.. Skin: Skin color, texture, turgor normal, no suspicious rashes or lesions. Head: Normocephalic, no masses, lesions, tenderness or abnormalities. Eyes: Anicteric sclera. Extraocular movements are intact. . Lungs: Lungs clear to auscultation. No wheezing, rhonchi, rales. Heart: RRR without murmur, gallop, or rubs. No ectopy. Neurologic: Gait normal. ASSESSMENT/PLAN: 1. Anxiety - ICD9: 300.00, ICD10: F41.9 (primary diagnosis) Continues with breakthrough symptoms. Will add vistaril prn. Recheck in 6 weeks. She will send update. 2. Hyperlipidemia, unspecified hyperlipidemia type - ICD9: 272.4, ICD10: E78.5 - Control undetermined, due for labs - Continue current medications -- on pravastatin. Other statins caused elevated liver enzymes. - Referral to preventive cardiology for discussion of PCSK9 inhibitors -- ? Familial hyperlipidemia. - Counseled on healthy diet and regular exercise - LIPID PANEL BASIC - CONSULT TO LIPID CLINIC 3. Chronic superficial gastritis without bleeding - ICD9: 535.10, ICD10: K29.30 Improved on PPI. Discussed treatment plan and patient voices understanding. Patient's questions answered appropriately. Medications and potential side effects were discussed and patient voices understanding. Return to the office as scheduled or as needed for worsening/no improvement. Amber Lenz APRN.DATER ASSEMBLER documented in this encounterSt. [facility]08-07-2024 Telephone encounter Note * Telephone Encounter - Sharon Tobias LPN - 06/17/2024 8:35 AM EDT Spoke with pt and information listed below given. Pt verbalizes understanding. Sharon Tobias LPN [facility]08-07-2024 Miscellaneous Notes* Telephone Encounter - Sharon Tobias LPN - 06/17/2024 8:35 AM EDT Spoke with pt and information listed below given. Pt verbalizes understanding. Sharon Tobias LPN * Telephone Encounter - Justus Mcdonald MD - 06/16/2024 5:41 PM EDT Labs are overall ok. Looks a little dry. Push fluids. Pancreatic enzymes are ok. Calcium is slightly up but may just be lab error. Recheck labs in one week documented in this encounterSt. Anthony'S Hospital08-06-2024 Telephone encounter Note * Telephone Encounter - Justsu Mcdonald MD - 06/16/2024 5:41 PM EDT Labs are overall ok. Looks a little dry. Push fluids. Pancreatic enzymes are ok. Calcium is slightly up but may just be lab error. Recheck labs in one week [facility]08-[facility] History of Present illness Narrative* Justus Mcdonald MD - 06/15/2024 2:28 PM EDT Patient presents with: Change In Bowel Habits HPI: Patient presents today for office visit for dark colored stools. Has been out of her Pantoprazole for quite a few weeks. Has a burning sensation in her upper abdomen. Took dose of Pepto Bismol yesterday. Noticed yesterday had dark black stool. Had BM this morning and was dark black but states worse than yesterday. Denies any bright red blood. No new or worsening nausea. Denies any vomiting. Feels bloated and gassy. Dicussed that pepto can cause black stools. No fever or chills. No chest pain or shortness of breath. No nsaids or etoh. Mentions her mother about a week ago and has been under a lot of stress. Also going through a divorce. Hx of ulcers. Has previously seen Gastro. MEDICATIONS: Current Outpatient Medications Medication Sig FLUoxetine (PROZAC) 40 mg capsule Take 1 capsule by mouth once daily. pantoprazole DR (PROTONIX) 40 mg tablet Take 1 tablet by mouth once daily. promethazine (PHENERGAN) 25 mg tablet Take 1 tablet by mouth every 4 hours as needed for nausea/vomiting. topiramate (TOPAMAX) 100 mg tablet Take half a tablet (50mg) in the morning and one tablet (100mg) at night. rimegepant (NURTEC ODT) 75 mg disintegrating tablet Take one tablet every other day pravastatin (PRAVACHOL) 20 mg tablet Take 1 tablet by mouth daily at bedtime. fremanezumab-vfrm (OculeveOVY AUTOINJECTOR) 225 mg/1.5 mL auto-injector Inject 1.5 mL subcutaneously once every month. Do not shake. (Patient not taking: Reported on 06/15/2024) benzonatate (TESSALON PERLES) 100 mg capsule Take 2 capsules by mouth three times a day as needed. (Patient not taking: Reported on 06/15/2024) meclizine (ANTIVERT) 25 mg tab Take 1 tablet by mouth every 6 hours as needed (dizziness). (Patientnot taking: Reported on 06/15/2024) hydrOXYzine pamoate (VISTARIL) 25 mg capsule Take 1 capsule by mouth three times daily as needed. (Patient not taking: Reported on 06/15/2024) No current facility-administered medications for this visit. ALLERGIES: ALLERGIES Allergen Reactions Aleve [Naproxen Sod* GI Upset Bactrim [Sulfametho* Intolerance dizziness and upset stomach Latex Rash Lipitor [Atorvastat* Intolerance Elevated Liver enzymes Penicillins Unknown Tape [Adhesive Tape* Rash Tylenol [Acetaminop* Other: See Comments Nausea Vicodin [Hydrocodon* Vomiting PAST MEDICAL HISTORY No date: Anxiety state, unspecified No date: Blood dyscrasia No date: Carpal tunnel syndrome No date: Factor V Leiden ([facility]) 2007: Galactorrhea not associated with childbirth 04/13/2003: Hiatal hernia Comment: EGD- [facility] 1987,1989,1993: History of No date: Iron deficiency anemia, unspecified No date: Mental disorder No date: Migraine, unspecified, without mention of intractable migraine without mention of status migrainosus 1987: Other pulmonary embolism and infarction Comment: Pulmonary embolism & factor 5 Leiden PAST SURGICAL HISTORY 1987,1989,1993: DELIVERY ONLY Comment: , low transverse 11/24/2020: EGD 04/13/2003: ESOPHAGOGASTRODUODENOSCOPY TRANSORAL DIAGNOSTIC Comment: EGD [facility] Dr. Lundy 12/08/2018: ESOPHAGOGASTRODUODENOSCOPY TRANSORAL DIAGNOSTIC Comment: EGD 2005: HYSTERECTOMY HX Comment: left ovaries 01/11/2021: INCISE FINGER TENDON SHEATH; Left Comment: Left middle trigger finger release 2006: GUERIN W/O FACETEC FORAMOT/DSC 1/2 VRT SGM CRV Comment: Laminectomy, cervical and titianium placed No date: NECK SURGERY HX No date: SKIN BIOPSY HX No date: VAGINAL HYSTERECTOMY FAMILY HISTORY Problem Relation Age of Onset Diabetes Mother Headache Mother Hypertension Mother Heart Father 3 NE's, age 52 Cancer Maternal Grandmother Uterine Blood Disease Brother Leiden factor 5, Blood Disease Other Brother's son, Leiden Factor 5 Social History Tobacco Use Smoking status: Never Smokeless tobacco: Never Vaping Use Vaping Use: Never used Substance Use Topics Alcohol use: No Drug use: No Reviewed current medications, allergies, past medical history, surgical history, family history andsocial history today. REVIEW OF SYSTEMS All other reviewed and negative other than HPI. VITALS: BP 140/89 Pulse 67 Ht 160 cm (5' 3) Wt 67.6 kg (149 lb) BMI 26.39 kg/m Last 4 Encounter Wt Readings: Date: Wt: 06/15/2024 67.6 kg (149 lb) 02/26/2024 67 kg (147 lb 12.8 oz) 01/09/2024 65.8 kg (145 lb) 09/24/2023 66.1 kg (145 lb 12.8 oz) PHYSICAL EXAMINATION: General appearance: Well appearing, alert, in no acute distress, well-hydrated, well nourished. Skin: Skin color, texture, turgor normal, no suspicious rashes or lesions No pallor Lungs: Lungs clear to auscultation. No wheezing, rhonchi, rales Heart: RRR without murmur, gallop, or rubs. No ectopy Abdomen: midl epigastric pain. No rebound or masses. Normal bowel sounds. Extremities: No deformities, edema, skin discoloration, clubbing or cyanosis. Good capillary refill. Rectal exam chaperoned by Jg Box LPN-no masses or tenderness. Stool dark but heme negative. ASSESSMENT/PLAN: 1. Epigastric pain - ICD9: 789.06, ICD10: R10.13 (primary diagnosis) - resume protonix. Check labs. Red flags for re-assessment reviewed with patient in detail. -follow up in two weeks for recheck. - COMPLETE BLOOD COUNT AND DIFFERENTIAL - COMPREHENSIVE METABOLIC PANEL - LIPASE 2. Heartburn - ICD9: 787.1, ICD10: R12 - PANTOPRAZOLE 40 MG TABLET,DELAYED RELEASE 3. Chronic superficial gastritis without bleeding - ICD9: 535.10, ICD10: K29.30 - may need to return to gi. 4. Black stool - ICD9: 792.1, ICD10: K92.1 - ? Related to pepto bismol - IMMUNOCHEMICAL FECAL OCCULT BLOOD TEST 5. Anxiety - ICD9: 300.00, ICD10: F41.9 - continue meds. Follow progress. - FLUOXETINE 40 MG CAPSULE Justus Mcdonald MD RTO in two weeks or prn. Recheck bp at that visit as well. documented in this encounterSt. Anthony'[facility]08-05-2024 Telephone encounter Note * Telephone Encounter - Julita Guardado RN - 06/15/2024 10:58 AM EDT Protocol recommends see provider in 2 weeks. Pt scheduled with Dr Mcdonald today at 240 pm.Care plan reviewed with patient. Patient voices understanding. Advised patient that if symptoms get worse to be evaluated in Urgent Care or ER. Reason for Disposition Black or tarry bowel movements Age > 50 years Answer Assessment - Initial Assessment Questions 1. APPEARANCE of BLOOD: Pt denies blood in stool or water, states stool is black. 2. AMOUNT: Unable to give amount of blood. 3. FREQUENCY: Pt has had x2 black stools once yesterday and once today. 4. ONSET: Pt had first black stool yesterday morning. 5. DIARRHEA: Denies. 6. CONSTIPATION: Denies. 7. RECURRENT SYMPTOMS: Pt denies having blood in her stool before. 8. BLOOD THINNERS: Denies taking any blood thinners. 9. OTHER SYMPTOMS: Pt reports upper abdomen pain across the whole top. States it;'s constant when she has an attack and she has to sit up until it passes, then ok until it come again. Pt reports it'sa burning 3-4/10 now but at worst 10/10.; Pt states she hasn't had her Protonix x2 weeks because pharmacy can't get a hold of her gastro provider. Pt did take x1 dose of Pepto Bismol last night. Pt denies vomiting, dizziness, or fever. 10. : Denies, partial hyster. Protocols used: Stools - Unusual [id number], Rectal Fdmijuva-GBCHE-AR [facility] Miscellaneous Notes* Telephone Encounter - Julita Guardado RN - 06/15/2024 10:58 AM EDT Protocol recommends see provider in 2 weeks. Pt scheduled with Dr Mcdonald today at 240 pm.Care plan reviewed with patient. Patient voices understanding. Advised patient that if symptoms get worse to be evaluated in Urgent Care or ER. Reason for Disposition Black or tarry bowel movements Age > 50 years Answer Assessment - Initial Assessment Questions 1. APPEARANCE of BLOOD: Pt denies blood in stool or water, states stool is black. 2. AMOUNT: Unable to give amount of blood. 3. FREQUENCY: Pt has had x2 black stools once yesterday and once today. 4. ONSET: Pt had first black stool yesterday morning. 5. DIARRHEA: Denies. 6. CONSTIPATION: Denies. 7. RECURRENT SYMPTOMS: Pt denies having blood in her stool before. 8. BLOOD THINNERS: Denies taking any blood thinners. 9. OTHER SYMPTOMS: Pt reports upper abdomen pain across the whole top. States it;'s constant when she has an attack and she has to sit up until it passes, then ok until it come again. Pt reports it'sa burning 3-02/18 now but at worst 08/20.; Pt states she hasn't had her Protonix x2 weeks because pharmacy can't get a hold of her gastro provider. Pt did take x1 dose of Pepto Bismol last night. Pt denies vomiting, dizziness, or fever. 10. : Denies, partial hyster. Protocols used: Stools - Unusual [id number], Rectal Vdzlbbmz-ADFNK-AR * Telephone Encounter - Damaris Siddiqui RN - 06/15/2024 10:39 AM EDT Attempted to call the pt back x 3 with no answer. LM to return the call to speak with an RN about her call. Attempted her work number which did not go through and LM on pt's Roger's phone to have the pt call us back. documented in this encounterSt. Anthony'[facility]08-05-2024 Telephone encounter Note * Telephone Encounter - Damaris Siddiqui RN - 06/15/2024 10:39 AM EDT Attempted to call the pt back x 3 with no answer. LM to return the call to speak with an RN about her call. Attempted her work number which did not go through and LM on pt's Roger's phone to have the pt call us back. [facility] Instructions* Patient Instructions* Courtney Anderson PA-C - 02/26/2024 11:40 AM EDT Will try Ajovy once a month for prevention, continue with topiramate 150mg daily Nurtec as needed for break through headaches Increase water intake to 60 ounces a day Take Phenergan 25 mg as needed for nausea Follow up in three months documented in this encounterSt. Anthony'S Hospital04-17-2024 History of Present illness Narrative* Courtney Anderson PA-C - 02/26/2024 11:20 AM EDT Images from the original note were not included. [facility] Follow up CC: Headache Follow up Last Visit: 09/24/23 ASSESSMENT/PLAN: 1. Headache, unspecified headache type - ICD9: 784.0, ICD10: R51.9 (primary diagnosis) 2. Migraine without aura and without status migrainosus, not intractable - ICD9: 346.10, ICD10: G43.009 Patient with significant improvement after titrating up Topamax to 150 mg a day, 50 mg in the morning and 100 mg at night. No significant side effects other than some mild brain fog in the morning after she takes it but this resolves quickly. Notes about 2 headaches a week. Nurtec was approved, butpatient was never told that it was approved so she has not tried this yet. Does have history of factor V Leiden so will avoid triptans. We will continue with current regimen, 150 mg Topamax a day as well as Nurtec 75 mg at onset of headache. Encourage other conservative therapy including increasingwater intake. Patient did have MRI ordered and scheduled by primary care but she elects not to have this done due to improvement of her headaches. Did discuss that this was her choice but it is recommended for any patient over the age of 50 with new onset headache, patient agrees and understands. Patient agreeable to treatment plan of care at this time, all questions were answered. Patient to follow-up in 5 to 6 months or sooner should any symptoms change or worsen. New prescription for Topamax was sent today along with renewal for Nurtec. Plan: All options for treatment discussed. Preventative: Topamax 150 mg Abortive: Nurtec 75 mg Follow-up: 6 months Today: Patient is here for headache/migraine follow up. Last seen on 09/24/23 for MOORE. On TPM 150mg and nurtec, having 8 MOORE a month. Had not tried nurtec yet. Reached out on 01/30/24 noting worsening MOORE. Transitioned nurtec to preventative. Since last visit headaches have worsened. Feels that the Topamax is no longer working as she is getting worsening carsickness and her headaches are now daily for the last month or 2. No side effects with the Topamax. Headaches have not changed in presentation or symptoms. Notes that she typically has some sort of pressure in the background, is never fully headache free in the last month. No new diagnoses or medications since last appointment. Does note that she was unable to get the Nurtec transition to a preventative but is still able to get it as an abortive. Current Headache treatment Preventative: TPM 150 mg Abortive: Nurtec Medications effective? yes # of doses of abortive medications per month: 8 Total headache days per month: almost daily Total headache attacks per month: almost daily Headache free days: Yes Duration of attacks: all day Severity of headaches? Moderate to severe Location: frontal. Aura: None Accompanying symptoms: photophobia, phonophobia, osmophobia, diarrhea, nausea, language disturbance, confusion, worse with movement. Quality:dull and throbbing. Worse with activity: Yes Pain today: 10 Triggers: bright lights, odors, stress, weather changes, sleep- too little, fasting/hunger, and travel. Prodrome:none. Tobacco Use: No. Alcohol Use: No Caffeine:Yes: About 2 servings a day Water- struggling with that but starting to increase. Stopped drinking pop Prior Therapies Prozac Vistaril Maxalt Topiramate The patient's prior records were reviewed including and lab testing, imaging, and procedures done since their last visit with me. Review of symptoms including constitutional, eyes, ENT, neck, respiratory, cardiovascular, GI, , musculoskeletal, hematologic, oncologic, endocrine, and psychiatric categories is unchanged. No new details in the family history or social history were offered by the patient. PAST MEDICAL HISTORY Diagnosis Date Anxiety state, unspecified Blood dyscrasia Carpal tunnel syndrome Factor V Leiden (HCC) Galactorrhea not associated with childbirth 2007 Hiatal hernia 04/13/2003 [facility] History of 1987,1989,1993 Iron deficiency anemia, unspecified Mental disorder Migraine, unspecified, without mention of intractable migraine without mention of status migrainosus Other pulmonary embolism and infarction 1987 Pulmonary embolism & factor 5 Leiden PAST SURGICAL HISTORY Procedure Laterality Date DELIVERY ONLY 1987,1989,1993 , low transverse EGD 11/24/2020 ESOPHAGOGASTRODUODENOSCOPY TRANSORAL DIAGNOSTIC 04/13/[address] [facility] Dr. Lundy ESOPHAGOGASTRODUODENOSCOPY TRANSORAL DIAGNOSTIC 12/08/2018 EGD HYSTERECTOMY HX 2005 left ovaries INCISE FINGER TENDON SHEATH Left 01/11/2021 Left middle trigger finger release GUERIN W/O FACETEC FORAMOT/DSC 1/2 VRT SGM CRV 2006 Laminectomy, cervical and titianium placed NECK SURGERY HX SKIN BIOPSY HX VAGINAL HYSTERECTOMY ALLERGIES Allergen Reactions Aleve [Naproxen Sod* GI Upset Bactrim [Sulfametho* Intolerance dizziness and upset stomach Latex Rash Lipitor [Atorvastat* Intolerance Elevated Liver enzymes Penicillins Unknown Tape [Adhesive Tape* Rash Tylenol [Acetaminop* Other: See Comments Nausea Vicodin [Hydrocodon* Vomiting Current Medications: benzonatate (TESSALON PERLES) 100 mg capsule Take 2 capsules by mouth three times a day as needed. topiramate (TOPAMAX) 100 mg tablet Take half a tablet (50mg) in the morning and one tablet (100mg) at night. pantoprazole DR (PROTONIX) 40 mg tablet take 1 tablet by mouth once daily meclizine (ANTIVERT) 25 mg tab Take 1 tablet by mouth every 6 hours as needed (dizziness). FLUoxetine (PROZAC) 40 mg capsule Take 1 capsule by mouth once daily. hydrOXYzine pamoate (VISTARIL) 25 mg capsule Take 1 capsule by mouth three times daily as needed. pravastatin (PRAVACHOL) 20 mg tablet Take 1 tablet by mouth daily at bedtime. rimegepant (NURTEC ODT) 75 mg disintegrating tablet Take one tablet every other day Studies to Review: No New Health Issues: No New Social History: No New Family History: No REVIEW OF SYSTEMS: GENERAL:No weight loss, malaise or fevers. HEENT:no changes to hearing or vision NECK:negative for neck pain, swelling. RESPIRATORY: Negative for cough, wheezing or shortness of breath. CARDIOVASCULAR: Negative for chest pain, leg swelling or palpitations. GASTROINTESTINAL: Negative for abdominal discomfort, blood in stools or black stools or change in bowel habits GENITOURINARY: No history of dysuria, frequency or incontinence MUSKULOSKELETAL: Negative for joint pain or swelling, back pain or muscle pain. SKIN:Negative for lesions, rash, and itching. HEMATOLOGIC/LYMPHATIC/IMMUNOLOGIC:Negative for prolonged bleeding, bruising easily or swollen nodes. ENDOCRINE: Negative for cold or heat intolerance, polyuria, polydipsia NEUROLOGIC:See HPI PHYSICAL EXAMINATION: BP 109/74 Pulse 71 Resp 18 Wt 67 kg (147 lb 12.8 oz) SpO2 98% BMI 26.18 kg/m General: well appearing, in no acute distress, alert, HEENT: Normocephalic/atraumatic., Skin: Color, texture, turgor normal. No rashes or lesions, Lungs: Breathing comfortably, Neurological Examination: Cognition: The patient is alert and oriented times three Lucid and organized in conversation Able to tell detailed medical hx Speech is Normal in fluency volume and clarity Content and Syntax: Normal Comprehension: Normal, able to follow several step commands Cranial Nerves: Pupils are equal and reactive to light. Pupils normal in size Extraocular movements are grossly intact Good saccades and pursuits No nystagmus Hearing intact Good upgaze Visual armando are full to confrontation. Facial, motor and sensory exam is symmetric Equal v1,V2, V3 Tongue is in midline. No tongue fasciculation. Palate is upgoing bilaterally SCM and trapezius are full. Shoulder shrug intact Normal tone and strength. Normal coordination. DTRs are intact and symmetric bilaterally. Normal gait. Impression: ASSESSMENT/PLAN: 1. Headache, unspecified headache type - ICD9: 784.0, ICD10: R51.9 (primary diagnosis) 2. Migraine without aura and without status migrainosus, not intractable - ICD9: 346.10, ICD10: G43.009 Patient with worsening headaches last 1 to 2 months, migrainous in nature. Unsure what caused the worsening of her headaches. Feels that Topamax is no longer effective for her. Previously was having about 8 migraines a month about 6 months ago. No new symptoms with the headaches, no red flag signs or symptoms that would warrant additional imaging at this time. Discussed further treatments for headaches. Patient currently taking Prozac so we will avoid antidepressants, also has hypertension today so we will avoid any blood pressure medications. Discussed adding additional antiseizure medication, but as this will increase risk of fatigue patient is deferring this at this time. Discussed alternatives including Botox versus injectables. Patient elects to try Ajovy injection once a month for prevention. Will continue Nurtec 75 mg as an abortive. Will also continue Topamax until patient is established on Ajovy. Should headaches be persisting against treatment, may consider imaging in the future. However, at this time, history consistent with migraine headaches, physical exam is reassuring. Patient agreeable to treatment plan of care at this time, questions were answered. Patient to follow-up in 3 months or sooner should any symptoms change or worsen. Plan: All options for treatment discussed. Preventative: Topamax 150 mg, Ajovy Abortive: Nurtec Follow-up: 3 months I spent a total of 30 minutes on the date of the service which included preparing to see the patient, [id number] patient care, completing clinical documentation, obtaining and/or reviewing separately obtained history, performing a medically appropriate examination, counseling and educating the pat ient/family/caregiver, and ordering medications, tests, or procedures. Courtney Anderson PA-C General Neurology [address] [place] [address]. [id number] Appointment: [phone] documented in this encounterSt. [facility]03[facility]24 Miscellaneous Notes* Telephone Encounter - Linda Espinosa LPN - 02/03/2024 3:08 PM EDT Fax received from [employer] stating that Nurtec was approved for 8 tablets instead of 16 due to planlimits. TC to pt who voiced understanding and auth scanned to chart. Linda Espinosa LPN * Telephone Encounter - Diamond Tobias LPN - 02/03/2024 8:40 AM EDT Prior Authorization started Nurtec qty 16 tablets every other day Duncan [id number], cover my meds. Diamond Tobias LPN * Telephone Encounter - Courtney Anderson PA-C - 01/31/2024 3:50 PM EDT We can try and transition nurtec from a rescue to an abortive. Will send in this prescription. Would be nurtec every other day all the time. Courtney Anderson PA-C * Telephone Encounter - Diamond Tobias LPN - 01/31/2024 3:28 PM EDT Phone call placed patient reported currently out of Nurtec (It seemed to help with headaches) requesting alternative to Topamax. Diamond Tobias LPN * Telephone Encounter - Courtney Anderson PA-C - 01/31/2024 10:04 AM EDT Does patient mean the topiramate is not working, the nurtec or both. We can go up on the topiramateto 200mg once a day if desired before our appointment or we can try a different rescue medication if the nurtec is not working. * Telephone Encounter - Sharon Tobias LPN - 01/30/2024 10:52 AM EDT Pt called in to let you know the medication she was put on for her headaches is not working. Her headaches are persisting and she is having them more frequently. Pt is scheduled for an apt 02/26/24 and would like to know what to do in the mean time. Please advise pt. documented in this encounterSt. Anthony'[facility]02-29-2024 History of Present illness Narrative* Nina Vieira PA-C - 01/09/2024 7:54 AM EST This note was created using Transifexriter. Subjective Estuardo Villa is a 53 year old female. HPI Presents with a chief complaint of sinus pressure and congestion for over a week. She also has had a cough but feels like that is improving the last few days. No vomiting or diarrhea. She did have a fever in the beginning of illness, she was not aware that she had a fever today. 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 No home COVID test done. No chest pain or shortness of breath. Review of Systems Constitutional: Positive for fatigue and fever. HENT: Positive for congestion, sinus pressure and sinus pain. Negative for ear pain. Respiratory: Positive for cough. Negative for shortness of breath and wheezing. Cardiovascular: Negative. Gastrointestinal: Negative. Genitourinary: Negative. Musculoskeletal: Positive for myalgias. Neurological: Positive for headaches. All other systems reviewed and are negative. PAST MEDICAL HISTORY Diagnosis Date Anxiety state, unspecified Blood dyscrasia Carpal tunnel syndrome Factor V Leiden (HCC) Galactorrhea not associated with childbirth 2006 Hiatal hernia 04/13/2003 [facility] History of 1987,1989,1993 Iron deficiency anemia, unspecified Mental disorder Migraine, unspecified, without mention of intractable migraine without mention of status migrainosus Other pulmonary embolism and infarction 1987 Pulmonary embolism & factor 5 Leiden Current Outpatient Medications Medication Sig Dispense Refill topiramate (TOPAMAX) 100 mg tablet Take half a tablet (50mg) in the morning and one tablet (100mg) at night. 45 tablet 3 rimegepant (NURTEC ODT) 75 mg disintegrating tablet Take 1 tablet by mouth once daily as needed. [address] (PROTONIX) 40 mg tablet take 1 tablet by mouth once daily 180 tablet 1 meclizine (ANTIVERT) 25 mg tab Take 1 tablet by mouth every 6 hours as needed (dizziness). 30 tablet 0 FLUoxetine (PROZAC) 40 mg capsule Take 1 capsule by mouth once daily. 30 capsule 11 hydrOXYzine pamoate (VISTARIL) 25 mg capsule Take 1 capsule by mouth three times daily as needed. 30 capsule 0 pravastatin (PRAVACHOL) 20 mg tablet Take 1 tablet by mouth daily at bedtime. 30 tablet 5 doxycycline (VIBRA-TABS) 100 mg tablet Take 1 tablet by mouth two times a day for 7 days. 14 tablet0 predniSONE (DELTASONE) 20 mg tablet Take 2 tablets by mouth once daily for 5 days. 10 tablet 0 benzonatate (TESSALON PERLES) 100 mg capsule Take 2 capsules by mouth three times a day as needed. 30 capsule 0 No current facility-administered medications for this visit. PAST SURGICAL HISTORY Procedure Laterality Date DELIVERY ONLY 1987,1989,1993 , low transverse EGD 11/24/2020 ESOPHAGOGASTRODUODENOSCOPY TRANSORAL DIAGNOSTIC 04/13/[address] [facility] Dr. Lundy ESOPHAGOGASTRODUODENOSCOPY TRANSORAL DIAGNOSTIC 12/08/2018 EGD HYSTERECTOMY HX 2005 left ovaries INCISE FINGER TENDON SHEATH Left 01/11/2021 Left middle trigger finger release GUERIN W/O FACETEC FORAMOT/DSC 1/2 VRT SGM CRV 2006 Laminectomy, cervical and titianium placed NECK SURGERY HX SKIN BIOPSY HX VAGINAL HYSTERECTOMY FAMILY HISTORY Problem Relation Age of Onset Diabetes Mother Headache Mother Hypertension Mother Heart Father 3 NE's, age 52 Cancer Maternal Grandmother Uterine Blood Disease Brother Leiden factor 5, Blood Disease Other Brother's son, Leiden Factor 5 Social History Tobacco Use Smoking status: Never Smokeless tobacco: Never Vaping Use Vaping Use: Never used Substance Use Topics Alcohol use: No Drug use: No Objective BP 119/82 Pulse 80 Temp (!) 38 C (100.4 F) Resp 18 Wt 65.8 kg (145 lb) SpO2 100% BMI 25.69 kg/m Physical Exam Vitals reviewed. Constitutional: Appearance: Normal appearance. HENT: Head: Normocephalic and atraumatic. Right Ear: Tympanic membrane, ear canal and external ear normal. Left Ear: Tympanic membrane, ear canal and external ear normal. Nose: Congestion present. Right Sinus: Maxillary sinus tenderness and frontal sinus tenderness present. Mouth/Throat: Mouth: Mucous membranes are moist. Pharynx: Oropharynx is clear. Cardiovascular: Rate and Rhythm: Normal rate and regular rhythm. Heart sounds: Normal heart sounds. Pulmonary: Effort: Pulmonary effort is normal. Breath sounds: Normal breath sounds. Musculoskeletal: Cervical back: Neck supple. Lymphadenopathy: Cervical: No cervical adenopathy. Skin: General: Skin is warm and dry. Neurological: Mental Status: She is alert. Assessment and Plan ASSESSMENT/PLAN: 1. Acute non-recurrent pansinusitis - ICD9: 461.8, ICD10: J01.40 - Will begin treatment with Doxycycline - Supportive care with plenty of fluids, rest, and analgesia prn. - Follow up in 3-5 days if symptoms persist or worsen. Nina Vieira PA-C documented in this encounterSt. Anthony'[facility]11-21-2023 Miscellaneous Notes* Telephone Encounter - Sultana Willis RN - 10/01/2023 3:09 PM EST Patient was seen in Neurology 09/24 and medication was addressed. Sultana Willis RN * Telephone Encounter - Sultana Willis RN - 09/19/2023 9:40 AM EST Patient reports she was taking Topamax 25 mg in mornings and 100 mg every evening. States during her OV with Jonathan Vital on 08/09/23, she was advised to increase her 25 mg to 50 mg every morning due to migraines and this has been effective. Jonathan's 07/2923 OV note copied: 13. Other migraine without status migrainosus, not intractable - ICD9: 346.80, ICD10: G43.809 Factors in headache origin: TMJ issues, stress. Discussed options. Will try increase in topamax to 50mg a.m. 100 mg pm. Will forward notes to Zonia Anderson PA-C Pt states she is needing more 25 mg tablets if Jonathan would reorder (pended). (Or can order 50 mg tab-not pended) Pt will be seeing DELORIS Pickering in Neurology next week and will discuss Topamax with her as well. No call back needed to patient if able to complete her request. Thank you. documented in this encounterSt. [facility]11-14-2023 Instructions* Patient Instructions* Courtney Anderson PA-C - 09/24/2023 3:46 PM EST MRI of the brain 2. Continue 150mg topiramate daily (50mg in the morning, 100mg in the evening before bed) 3. Nurtec 75mg with onset of headache 4. Follow up in 5 months B12 Replacement You may start vitamin B12 supplements [available [id number]] orally, according to the following regimen: 1 mg (or 1000 micrograms) daily. documented in this encounterSt. Anthony'[facility]11-14-2023 History of Present illness Narrative* Courtney Anderson PA-C - 09/24/2023 3:41 PM EST Images from the original note were not included. [facility] Follow up CC: Headache Follow up Last Visit: 06/11/23 Assessment & Plan: Estuardo Villa is a 52 year old right-handed female with a history of factor V Leiden, anxiety, migraines, iron deficiency. Her examination demonstrates no neurologic abnormality. Patient with history of migraines that resolved after hysterectomy and cervical surgery in 2004-, has sudden onset of migraine headaches that began about 4 months ago. Headaches are different than previous presentation, no longer has an aura but does have significant dizziness. Also noting dizziness outside of headache that is difficult to describe, not room spinning, not necessarily lightheadedness but does have some unsteadiness to it. Highest differential at this time is vestibular migraine, but with her history of factor V Leiden and new onset dizziness, feels appropriate to obtain MRI of the brain, ordered by primary care. Neurologic exam is reassuring at this time. No sudden onset of headache, no family history of aneurysm, we will not obtain MRA head and neck at this time. For prevention of headaches, discussed different medications and supplements that may be beneficial, patient currently taking Topamax 25 mg, discussed that she may not have more benefit by titrating up on this medication. She agrees and understands, currently no side effects with this medicine. No history of kidney stones or glaucoma. We will titrate up to 100 mg, discussed common side effects. Additionally, discussed supplements and patient is agreeable to try these as well. For abortive therapy, patient does have history of factor V Leiden, with history of PE in the past. We will avoid triptans at this time to avoid vasoconstrictive effect, will write for Nurtec 75 mg to take with the onset of headache. Discussed common side effects, patient agrees and understands. Discussed other conservative measures for headache prevention including tracking diet, increasing water, and prioritizing sleep. Patient agrees and understands. Patient also has an eye doctor who shehas not seen in over a year, encouraged to have repeat exam. Patient agrees and understands. Patient agreeable to treatment plan of care at this time, all questions were answered. Patient to follow-up in 3 months or sooner should any symptoms change or worsen. Estuardo was seen today for new patient evaluation. Today: Patient is here for headache/migraine follow up. Last seen 06/11/23 for headache. Onset of headaches four month ago, no showed MRI appoitnment. Likelyvestibular migraines but PT with history of factor V leiden. Topiramate 100mg and this was increased further by PCP to 150mg. Started nurtec 75mg. Almost daily headaches with migrainous features. Since last visit headaches have improved. Patient notes significant movement after increasing the Topamax to 150 mg in a day, 50 mg in the morning and 100 mg at night. No side effects with the Topamax including paresthesias, brain fog, weight loss or significant fatigue. Does report some fatigue but this is typical around this time of year. Notes that the Topamax also helped with her carsickness and dizziness she experiences when driving. Estimates getting about 2 headaches a week but they are much less severe. Still experiencing migrainous symptoms. Her prodrome is some tearing of the right eye as well as a poor taste in her mouth. Also notes that the Topamax has helped with her sleep, but only falling asleep not necessarily staying asleep. Notes that she is going through menopause and attributes her poor sleep to this. Her primary care did order an MRI, this was approved but she did not want to have this imaging done. No new symptoms or concerns today. Current Headache treatment Preventative: TPM 150mg Abortive: Nurtec 75mg (has not tried) Medications effective? no # of doses of abortive medications per month: none Total headache days per month: 8 per month Total headache attacks per month: 8 per month Headache free days: Yes Duration of attacks: all day Severity of headaches? moderate Location: behind the eyes, more on the right. Aura: None Accompanying symptoms: photophobia, phonophobia, osmophobia, diarrhea, nausea, vomiting, lacrimation, language disturbance, confusion, agitation, worse with movement. Quality:throbbing and pressure . Worse with activity: Yes Pain today: 5/10 Triggers: bright lights, odors, stress, weather changes, sleep- too little, and travel. Prodrome:Abnormal taste. Tobacco Use: No. Alcohol Use: No Caffeine:Yes: two max daily Prior Therapies Prozac Vistaril Maxalt Topiramate The patient's prior records were reviewed including and lab testing, imaging, and procedures done since their last visit with me. Review of symptoms including constitutional, eyes, ENT, neck, respiratory, cardiovascular, GI, , musculoskeletal, hematologic, oncologic, endocrine, and psychiatric categories is unchanged. No new details in the family history or social history were offered by the patient. PAST MEDICAL HISTORY Diagnosis Date Anxiety state, unspecified Blood dyscrasia Carpal tunnel syndrome Factor V Leiden (HCC) Galactorrhea not associated with childbirth 2007 Hiatal hernia 04/13/2003 [facility] History of 1987,1989,1993 Iron deficiency anemia, unspecified Mental disorder Migraine, unspecified, without mention of intractable migraine without mention of status migrainosus Other pulmonary embolism and infarction 1987 Pulmonary embolism & factor 5 Leiden PAST SURGICAL HISTORY Procedure Laterality Date DELIVERY ONLY 1987,1989,1993 , low transverse EGD 11/24/2020 ESOPHAGOGASTRODUODENOSCOPY TRANSORAL DIAGNOSTIC 04/13/[address] [facility] Dr. Lundy ESOPHAGOGASTRODUODENOSCOPY TRANSORAL DIAGNOSTIC 12/08/2018 EGD HYSTERECTOMY HX 2005 left ovaries INCISE FINGER TENDON SHEATH Left 01/11/2021 Left middle trigger finger release GUERIN W/O FACETEC FORAMOT/DSC 11/12 VRT SGM CRV 2005 Laminectomy, cervical and titianium placed NECK SURGERY HX SKIN BIOPSY HX VAGINAL HYSTERECTOMY ALLERGIES Allergen Reactions Aleve [Naproxen Sod* GI Upset Bactrim [Sulfametho* Intolerance dizziness and upset stomach Latex Rash Lipitor [Atorvastat* Intolerance Elevated Liver enzymes Penicillins Unknown Tape [Adhesive Tape* Rash Tylenol [Acetaminop* Other: See Comments Nausea Vicodin [Hydrocodon* Vomiting Current Medications: pantoprazole DR (PROTONIX) 40 mg tablet take 1 tablet by mouth once daily meclizine (ANTIVERT) 25 mg tab Take 1 tablet by mouth every 6 hours as needed (dizziness). FLUoxetine (PROZAC) 40 mg capsule Take 1 capsule by mouth once daily. hydrOXYzine pamoate (VISTARIL) 25 mg capsule Take 1 capsule by mouth three times daily as needed. pravastatin (PRAVACHOL) 20 mg tablet Take 1 tablet by mouth daily at bedtime. rimegepant (NURTEC ODT) 75 mg disintegrating tablet Take 1 tablet by mouth once daily as needed. (Patient not taking: Reported on 09/24/2023) topiramate (TOPAMAX) 100 mg tablet Take 1 tablet by mouth daily at bedtime. topiramate (TOPAMAX) 25 mg tablet Take 1 tablet by mouth daily at bedtime. Studies to Review: No New Health Issues: No New Social History: No New Family History: No REVIEW OF SYSTEMS: Sleep: Normal sleep pattern, does have some issues staying asleep Mood: depressed, usually happens this time of year Energy: Low, Stress: Normal GENERAL:No weight loss, malaise or fevers. HEENT:no changes to hearing or vision NECK:negative for neck pain, swelling. RESPIRATORY: Negative for cough, wheezing or shortness of breath. CARDIOVASCULAR: Negative for chest pain, leg swelling or palpitations. GASTROINTESTINAL: Negative for abdominal discomfort, blood in stools or black stools or change in bowel habits GENITOURINARY: No history of dysuria, frequency or incontinence MUSKULOSKELETAL: Negative for joint pain or swelling, back pain or muscle pain. SKIN:Negative for lesions, rash, and itching. HEMATOLOGIC/LYMPHATIC/IMMUNOLOGIC:Negative for prolonged bleeding, bruising easily or swollen nodes. ENDOCRINE: Negative for cold or heat intolerance, polyuria, polydipsia NEUROLOGIC:See HPI PHYSICAL EXAMINATION: BP 137/76 Pulse 77 Resp 18 Wt 66.1 kg (145 lb 12.8 oz) SpO2 100% BMI 25.83 kg/m General: well appearing, in no acute distress, alert, HEENT: Normocephalic/atraumatic., Skin: Color, texture, turgor normal. No rashes or lesions, Lungs: breathing comfortably, Neurological Examination: Cognition: The patient is alert and oriented times three Lucid and organized in conversation Able to tell detailed medical hx Speech is Normal in fluency volume and clarity Content and Syntax: Normal Comprehension: Normal, able to follow several step commands Cranial Nerves: Pupils are equal and reactive to light. Pupils normal in size Extraocular movements are grossly intact Good saccades and pursuits No nystagmus Hearing intact Good upgaze Visual armando are full to confrontation. Facial, motor and sensory exam is symmetric Equal v1,V2, V3 Tongue is in midline. No tongue fasciculation. Palate is upgoing bilaterally SCM and trapezius are full. Shoulder shrug intact Normal tone and strength. Normal coordination. DTRs not tested Normal gait. Impression: ASSESSMENT/PLAN: 1. Headache, unspecified headache type - ICD9: 784.0, ICD10: R51.9 (primary diagnosis) 2. Migraine without aura and without status migrainosus, not intractable - ICD9: 346.10, ICD10: G43.009 Patient with significant improvement after titrating up Topamax to 150 mg a day, 50 mg in the morning and 100 mg at night. No significant side effects other than some mild brain fog in the morning after she takes it but this resolves quickly. Notes about 2 headaches a week. Nurtec was approved, butpatient was never told that it was approved so she has not tried this yet. Does have history of factor V Leiden so will avoid triptans. We will continue with current regimen, 150 mg Topamax a day as well as Nurtec 75 mg at onset of headache. Encourage other conservative therapy including increasingwater intake. Patient did have MRI ordered and scheduled by primary care but she elects not to have this done due to improvement of her headaches. Did discuss that this was her choice but it is recommended for any patient over the age of 50 with new onset headache, patient agrees and understands. Patient agreeable to treatment plan of care at this time, all questions were answered. Patient to follow-up in 5 to 6 months or sooner should any symptoms change or worsen. New prescription for Topamax was sent today along with renewal for Nurtec. Plan: All options for treatment discussed. Preventative: Topamax 150 mg Abortive: Nurtec 75 mg Follow-up: 6 months I spent a total of 25 minutes on the date of the service which included preparing to see the patient, [id number] patient care, completing clinical documentation, obtaining and/or reviewing separately obtained history, performing a medically appropriate examination, counseling and educating the pat ient/family/caregiver, and ordering medications, tests, or procedures. Courtney Anderson PA-C General Neurology [facility] [place]. [address] Appointment: [phone] * Linda Espinosa LPN - 09/24/2023 3:32 PM EST There is no data to display for this encounter documented in this encounterSt. Anthony'S Hospital11-10-2023 Miscellaneous Notes* Telephone Encounter - Jesi Harris - 09/20/2023 7:28 AM EST 09-19 patient rescheduled EGD but declined Colonoscopy wants to do Stool Kit test Cologuard or IFOBT. Please call [phone] patient,once order has been placed and where to pick it up. 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 Anthony'S Hospital10-20-2023 Miscellaneous Notes* Telephone Encounter - Jg Box LPN - 08/30/2023 3:11 PM EDT Letter faxed as requested. * Telephone Encounter - Justus Mcdonald MD - 08/30/2023 2:15 PM EDT Letter printed. * Telephone Encounter - Geena Jimenes RN - 08/30/2023 1:29 PM EDT Alessandra from [facility] calls and states that patient is set to have 3 teeth extractions and a root canal. Patient is going to need a medical clearance for this due to patient having Factor V Leiden. Alessandra asking if provider can provide this? Fax number is [phone]. If provider has any questions please give office a call. Please review and advise, Geena Jimenes RN documented in this encounterSt. Anthony'S Hospital10-15-2023 Miscellaneous Notes* Telephone Encounter - Bandar-Allison Delacruz APRN.CNP - 08/25/2023 12:05 PM EDT Letter created for patient's employer stating she has a sinus infection. She can access this through [facility]. Allison Mar APRN.MAN documented in this encounterSt. Anthony'S Hospital10-14-2023 History of Present illness Narrative* Lucy Ross APRN.CNP - 08/24/2023 8:27 AM EDT CC: Patient presents with: Sinus congestion: Cough, ears plugged HPI: Estuardo Villa is a 52 year old female who presents to the office with complaint of head congestion, cough, nonproductive, and ear symptoms for 2 weeks. Symptoms are worsening Associated symptoms includes nasal congestion and facial pain/pressure. Denies fever, nausea, vomiting , and diarrhea. Treatments tried include nothing so far. with no relief of symptoms. Sick contacts: unknown. History of asthma, frequent episodes of bronchitis, chronic bronchitis, bronchiectasis or COPD: No Smoker: No Seasonal/environmental allergies: No The ROS is otherwise negative. The patient's pmh, medications, allergies, and past visits are reviewed. PHYSICAL EXAM: BP 167/89 Pulse 74 Temp 37.4 C (99.3 F) Resp 20 Wt 66.2 kg (146 lb) SpO2 99% BMI 25.86 kg/m General appearance: alert, cooperative, pleasant, in no acute distress Head: Normocephalic Eyes: EOM's intact, conjunctiva pink and moist, no icterus, sclera white, non-injected Ears: Right ear: External ear/canal- Normal, TM - clear with good landmarks. Left ear: External ear/canal- Normal, TM - clear with good landmarks Oropharynx:moist without lesions, No erythema, exudates or tonsillar hypertrophy. Heart: Negative. RRR without obvious murmur, gallop, or rubs. No ectopy. Lungs: clear to auscultation, without rales or wheeze, good air exchange PAST MEDICAL HISTORY Diagnosis Date Anxiety state, unspecified Blood dyscrasia Carpal tunnel syndrome Factor V Leiden (HCC) Galactorrhea not associated with childbirth 2007 Hiatal hernia 04/13/2003 [facility] History of 1987,1989,1993 Iron deficiency anemia, unspecified Mental disorder Migraine, unspecified, without mention of intractable migraine without mention of status migrainosus Other pulmonary embolism and infarction 1987 Pulmonary embolism & factor 5 Leiden PAST SURGICAL HISTORY Procedure Laterality Date DELIVERY ONLY 1987,1989,1993 , low transverse EGD 11/24/2020 ESOPHAGOGASTRODUODENOSCOPY TRANSORAL DIAGNOSTIC 04/13/[address] [facility] Dr. Lundy ESOPHAGOGASTRODUODENOSCOPY TRANSORAL DIAGNOSTIC 12/08/2018 EGD HYSTERECTOMY HX 2005 left ovaries INCISE FINGER TENDON SHEATH Left 01/11/2021 Left middle trigger finger release GUERIN W/O FACETEC FORAMOT/DSC 11/12 VRT SGM CRV 2005 Laminectomy, cervical and titianium placed NECK SURGERY HX SKIN BIOPSY HX VAGINAL HYSTERECTOMY ALLERGIES Aleve [Naproxen Sodium], Bactrim [Sulfamethoxazole], Latex, Lipitor [Atorvastatin Calcium], Penicillins, Tape [Adhesive Tape (Rosins)], Tylenol [Acetaminophen], and Vicodin [Hydrocodone-Acetaminophen] MEDICATIONS doxycycline (VIBRA-TABS) 100 mg tablet Take 1 tablet by mouth two times a day for 7 days. FLUoxetine (PROZAC) 40 mg capsule Take 1 capsule by mouth once daily. hydrOXYzine pamoate (VISTARIL) 25 mg capsule Take 1 capsule by mouth three times daily as needed. meclizine (ANTIVERT) 25 mg tab Take 1 tablet by mouth every 6 hours as needed (dizziness). pantoprazole DR (PROTONIX) 40 mg tablet take 1 tablet by mouth once daily pravastatin (PRAVACHOL) 20 mg tablet Take 1 tablet by mouth daily at bedtime. predniSONE (DELTASONE) 20 mg tablet Take 2 tablets by mouth once daily for 5 days. rimegepant (NURTEC ODT) 75 mg disintegrating tablet Take 1 tablet by mouth once daily as needed. topiramate (TOPAMAX) 100 mg tablet Take 1 tablet by mouth daily at bedtime. topiramate (TOPAMAX) 25 mg tablet Take 1 tablet by mouth daily at bedtime. FAMILY HISTORY Problem Relation Age of Onset Diabetes Mother Headache Mother Hypertension Mother Heart Father 3 NE's, age 52 Cancer Maternal Grandmother Uterine Blood Disease Brother Leiden factor 5, Blood Disease Other Brother's son, Leiden Factor 5 Social History Tobacco Use Smoking status: Never Smokeless tobacco: Never Vaping Use Vaping Use: Never used Substance Use Topics Alcohol use: No Drug use: No ASSESSMENT/PLAN: 1. Rhinosinusitis - ICD9: 473.9, ICD10: J32.9 - DOXYCYCLINE HYCLATE 100 MG TABLET - PREDNISONE 20 MG TABLET Prescription instructions reviewed with patient as applicable. Potential red flag symptoms discussed with the patient. Reviewed appropriate action plan to take if red flag symptoms occur. Patient agreeable to treatment plan. Lucy Ross APRN.CNP documented in this encounterSt. Anthony'S Hospital10-05-2023 Miscellaneous Notes* Telephone Encounter - Sharon Keen LPN - 08/15/2023 8:37 AM EDT Left message for patient to return call. Pt viewed results on My chart. 08/15 @ 7:54 am Sharon Keen LPN * Telephone Encounter - Truong Henriquez APRN.CNP - 08/15/2023 7:22 AM EDT Please notify that covid testing negative. Continue with plan of care as discussed during visit. documented in this encounterSt. Anthony'S Hospital09-29-2023 Instructions* Patient Instructions* Luis Vital PA-C - 08/09/2023 1:50 PM EDT Add additional Topamax 50mg daily in the morning. Monitor and let me know if any changes. documented in this encounterSt. Anthony'S Hospital09-29-2023 History of Present illness Narrative* Luis Vital PA-C - 08/09/2023 1:20 PM EDT 52 year old female with c/o 6 month follow up. Microhematuria (primary encounter diagnosis) Has blood last UA, + 100K E. Coli Hyperlipidemia: Current medication Pravastatin 20mg daily HS Taking medication consistently Yes Observing low cholesterol high fiber diet Yes Muscle aches No Stomach complaints/ diarrhea No Last 2 Lipids: Component Latest Ref Rng & Units 07/16/2020 01/23/2023 Cholesterol, Total <200 mg/dL 212 (H) Triglyceride <150 mg/dL 61 HDL Cholesterol >39 mg/dL 76 LDL Cholesterol <100 mg/dL 124 (H) Non HDL Cholesterol <130 mg/dL 136 (H) Fasting Time hrs Unknown VLDL Cholesterol <30 mg/dL 12 TC:HDL Ratio <5.10 2.79 LDL:HDL Ratio <2.54 1.63 Total Cholesterol, Nonfasting <200 mg/dL 349 (H) Triglycerides, Nonfasting <150 mg/dL 156 (H) HDL Cholesterol, Nonfasting >39 mg/dL 67 LDL Cholesterol, Nonfasting <100 mg/dL 251 (H) Non HDL Cholesterol, Nonfasting <130 mg/dL 282 (H) VLDL Cholesterol, Nonfasting <30 mg/dL 31 (H) Total Chol/HDL Ratio, Nonfasting <5.10 mg/dL 5.21 (H) LDL/HDL Ratio, Nonfasting <2.54 mg/dL 3.75 (H) The ASCVD Risk score (Alejandro DK, et al., 2019) failed to calculate for the following reasons: The valid total cholesterol range is 130 to 320 mg/dL Iron deficiency anemia due to chronic blood loss Factor v leiden (hcc) Hx PE Dizziness r/t anemia Technical Support Internship: Dr. Pearl Segundo 02/07/2023 Iron sucrose 200mg 5 doses-q14d Component Latest Ref Rng & Units 01/23/2023 05/03/2023 WBC 3.70 - 11.00 k/uL 5.70 4.92 RBC 3.90 - 5.20 m/uL 4.78 4.79 Hemoglobin 11.5 - 15.5 g/dL 10.7 (L) 13.4 Hematocrit 36.0 - 46.0 % 35.3 (L) 41.0 MCV 80.0 - 100.0 fL 73.8 (L) 85.6 MCH 26.0 - 34.0 pg 22.4 (L) 28.0 MCHC 30.5 - 36.0 g/dL 30.3 (L) 32.7 RDW-CV 11.5 - 15.0 % 18.5 (H) 19.6 (H) Platelet Count 150 - 400 k/uL 297 216 MPV 9.0 - 12.7 fL 10.8 10.9 Neut% % 57.1 42.8 Abs Neut (ANC) 1.45 - 7.50 k/uL 3.26 2.10 Lymph% % 29.8 46.7 Abs Lymph 1.00 - 4.00 k/uL 1.70 2.30 Glades% % 10.9 7.5 Abs Glades <0.87 k/uL 0.62 0.37 Eosin% % 1.4 2.4 Abs Eosin <0.46 k/uL 0.08 0.12 Baso% % 0.4 0.4 Abs Baso <0.11 k/uL <0.03 <0.03 Immature Gran % % 0.4 0.2 IMMATURE GRANS (ABS) <0.10 k/uL <0.03 <0.03 NRBC /100 WBC 0.0 0.0 Absolute nRBC <0.01 k/uL <0.01 <0.01 DTYPE Auto Auto Iron 41 - 186 ug/dL 27 (L) 97 TIBC 232 - 386 ug/dL 478 (H) 300 Transferrin Saturation 15.0 - 57.0 % 5.6 (L) 32.3 Ferritin 14.7 - 205.1 ng/mL 7.7 (L) 113.0 Globus sensation Epigastric pain Chronic superficial gastritis without bleeding Esophageal dysphagia Hiatal hernia Current medication: Pantoprazole DR 40mg daily AC. Current symptoms: none resolved on medication. Last Mg level if on PPI chronically: none. Heartburn is controlled: Yes. Dysphagia: No. Bloody or black stools: No. Bowel changes: No. Last EGD and/or colonoscopy: 11/24/2020 EGD, Dr. Salcido - Normal examined jejunum. - Normal examined duodenum. - Gastritis. Biopsied. - Medium-sized hiatal hernia. - Non-severe reflux esophagitis. Biopsied. - Normal middle third of esophagus. Biopsied. CONVERTED FINAL DIAGNOSIS 1. Stomach, antrum, biopsy (A) Gastric antral mucosa with chronic inactive gastritis. - An immunohistochemical stain for Helicobacter pylori organisms has been ordered and will be reported in an addendum. 2. Esophagus, distal, biopsy (B) Inflamed squamous and cardiac-type mucosa consistent with gastroesophageal reflux injury; negative for intestinal metaplasia. 3. Esophagus, mid, biopsy (C) Squamous mucosa with no diagnostic abnormality. ADDENDUM Given the background of chronic gastritis a Helicobacter pylori immunostain was performed on block A1 and is negative for Helicobacter pylori organisms. Acute pain of right knee resolved Palpitations Anxiety Current medications: Fluoxetine 40mg daily Stable on medicaton Other migraine without status migrainosus, not intractable Current medications: Rimegepant sulfate once a day as needed Topiramate 100mg HS 06/11/2023 Consult neurology: Courtney Anderson PA-C: titrated topiramate to 100mg, started Nurtec withintentional avoid triptans due to hx Leiden factor V and hx PE due to vasoconstrictive effect and 05/30/[address] Mcdonald for new headaches over last 4 month MRI pending Differnet type of headache Some brought on my weather and barometer changes. Taking 2 Advil seems to help. HISTORIES FAMILY HISTORY Problem Relation Age of Onset Diabetes Mother Headache Mother Hypertension Mother Heart Father 3 NE's, age 52 Cancer Maternal Grandmother Uterine Blood Disease Brother Leiden factor 5, Blood Disease Other Brother's son, Leiden Factor 5 PAST MEDICAL HISTORY Diagnosis Date Anxiety state, unspecified Blood dyscrasia Carpal tunnel syndrome Factor V Leiden (HCC) Galactorrhea not associated with childbirth 2007 Hiatal hernia 04/13/2003 E[facility]- [place] History of 1987,1989,1993 Iron deficiency anemia, unspecified Mental disorder Migraine, unspecified, without mention of intractable migraine without mention of status migrainosus Other pulmonary embolism and infarction 1987 Pulmonary embolism & factor 5 Leiden PAST SURGICAL HISTORY Procedure Laterality Date DELIVERY ONLY 1987,1989,1993 , low transverse EGD 11/24/2020 ESOPHAGOGASTRODUODENOSCOPY TRANSORAL DIAGNOSTIC 04/13/[address] [facility] Dr. Lundy ESOPHAGOGASTRODUODENOSCOPY TRANSORAL DIAGNOSTIC 12/08/2018 EGD HYSTERECTOMY HX 2005 left ovaries INCISE FINGER TENDON SHEATH Left 01/11/2021 Left middle trigger finger release GUERIN W/O FACETEC FORAMOT/DSC 1/2 VRT SGM CRV 2006 Laminectomy, cervical and titianium placed NECK SURGERY HX SKIN BIOPSY HX VAGINAL HYSTERECTOMY Social History Tobacco Use Smoking status: Never Smokeless tobacco: Never Vaping Use Vaping Use: Never used Substance Use Topics Alcohol use: No Drug use: No ACTIVE PROBLEM LIST Hyperlipidemia Palpitations Hiatal Hernia Carpal Tunnel Syndrome Anxiety Migraine Factor V Leiden (Hcc) Sprain and Strain of Unspecified Site of Elbow and Forearm Esophageal Dysphagia Globus Sensation Epigastric Pain Gastroesophageal Reflux Disease Acute Pain of Right Knee Iron Deficiency Anemia Due to Chronic Blood Loss Current Outpatient Medications Medication Sig Dispense Refill rimegepant (NURTEC ODT) 75 mg disintegrating tablet Take 1 tablet by mouth once daily as needed. 8 tablet 2 topiramate (TOPAMAX) 100 mg tablet Take 1 tablet by mouth daily at bedtime. 30 tablet 2 topiramate (TOPAMAX) 25 mg tablet Take 1 tablet by mouth daily at bedtime. [address] (PROTONIX) 40 mg tablet take 1 tablet by mouth once daily 180 tablet 1 meclizine (ANTIVERT) 25 mg tab Take 1 tablet by mouth every 6 hours as needed (dizziness). 30 tablet 0 FLUoxetine (PROZAC) 40 mg capsule Take 1 capsule by mouth once daily. 30 capsule 11 hydrOXYzine pamoate (VISTARIL) 25 mg capsule Take 1 capsule by mouth three times daily as needed. 30 capsule 0 pravastatin (PRAVACHOL) 20 mg tablet Take 1 tablet by mouth daily at bedtime. 30 tablet 5 No current facility-administered medications for this visit. Hepatitis B Vaccine(1 of 3 - 3-dose series) Never done Colorectal Cancer Screening Never done EXAM: BP 118/78 Pulse 68 Resp 16 Wt 65.4 kg (144 lb 3.2 oz) SpO2 99% BMI 25.54 kg/m Pleasant well appearing adult woman in no acute distress. Alert and oriented all spheres. Normal affect and cognition. Speech normal. No deficits to learning or comprehension. Skin warm, dry, pink to lips and nailbeds. Normal turgor. Respirations regular and unlabored. HEENT: NCAT. No scleral icterus or conjunctival injection. TM's clear. Nose and oropharynx free from injection or lesion. Oral membranes moist and pink. No cervical lymph nodes. Thyroid non-tender, no masses, or enlargement. Carotids pulses 2+/4+ without bruits. No JVD with HOB at 30 degrees. Chest is normal shape. Lungs are clear to all armando with good air exchange through out. HRRR without murmur or gallop. No lifts, heaves, or rubs. Extrem: no clubbing or cyanosis. Edema: none. Extremities are warm and pink with prompt capillary refill. ASSESSMENT/PLAN: 1. Microhematuria - ICD9: 599.72, ICD10: R31.29 (primary diagnosis) resolved 2. Hyperlipidemia, unspecified hyperlipidemia type - ICD9: 272.4, ICD10: E78.5 - Uncontrolled - Continue current medications - Counseled on healthy diet and regular exercise 3. Iron deficiency anemia due to chronic blood loss - ICD9: 280.0, ICD10: D50.0 4. Factor V Leiden (HCC) - ICD9: 289.81, ICD10: D68.51 5. Dizziness - ICD9: 780.4, ICD10: R42 R/t iron deficiency anemia. Resolved with recnt iron transfusions 6. Globus sensation - ICD9: 784.99, ICD10: R09.89 7. Epigastric pain - ICD9: 789.06, ICD10: R10.13 8. Chronic superficial gastritis without bleeding - ICD9: 535.10, ICD10: K29.30 9. Esophageal dysphagia - ICD9: 787.29, ICD10: R13.19 10. Hiatal hernia - ICD9: 553.3, ICD10: K44.9 Resolved with pantoprazole: continue medication 11. Palpitations - ICD9: 785.1, ICD10: R00.2 12. Anxiety - ICD9: 300.00, ICD10: F41.9 Improved with fluoxetine: continue med 13. Other migraine without status migrainosus, not intractable - ICD9: 346.80, ICD10: G43.809 Factors in headache origin: TMJ issues, stress. Discussed options. Will try increase in topamax to 50mg a.m. 100 mg pm. Will forward notes to Zonia Anderson PA-C 14. TMJ syndrome - ICD9: 524.69, ICD10: M26.629 Discussed concerns for dislocating TMJ. Reviewed myofascial techniques, mandibular stretches, technique for resetting jaw with front tooth tapping in alignment Offered consult- declined. Luis Vital PA-C documented in this encounterSt. Anthony'S Hospital08-02-2023 Miscellaneous Notes* Telephone Encounter - Leti Hyde - 06/12/2023 4:47 PM EDT Prior Auth Determination: Approved Received via: Fax From: Sanjay Medication/ Treatment: Nurtec 75mg Auth#/ Case#: [id number] Date Period: 06/12/23 - 12/08/23 Notified Pharmacy or Patient: faxed to pharmacy * Telephone Encounter - Barrett Leti - 06/12/2023 10:51 AM EDT Prior Authorization PENDING Prior Authorization Request From: Chandu Tsai Medication/ Treatment: Nurtec Submitted To: Sanjay Via: [facility] Reference# (if available): Duncan: [id number]- [id number] documented in this encounterSt. Anthony'S Hospital08-01-2023 Instructions* Patient Instructions* Courtney Anderson PA-C - 06/11/2023 12:38 PM EDT Preventative: supplements, increase topiramate up to 100mg Take at bedtime Increase dose every 2 weeks until goal dose of 100 mg Stop at any dose that reasonably treats headache Week 1-2: 25 mg each evening (1 tab) Week 3-4: 50 mg each evening (2 tabs) Week 5-6: 75 mg each evening (3 tabs) CAUSTIC ROOM ATTENDANT NEW SCRIPT 100 mg each evening (1 tab) Potential side effects: numbness and tingling, kidney stones (calcium phosphate) word finding difficulties and other cognitive side effects, loss off appetite, change in taste with sodas or reversible glaucoma. . If you develop numbness and tinglng , buy Potassium 99 mg over the counter and use 1 or 2 /day. Abortive: Stop maxalt, take nurtec with start of headache MRI brain (schedule today) Increase water to 60 ounces a day See an eye doctor Follow up in three months Headache Preventive Treatment: Please keep in mind that it takes 4-6 weeks for the medication to start working well and 2-3 monthsat the appropriate dose before deciding if it will be useful or not. If it is not helping at all bythis time, then we will discuss other medications to try. Supplements may take 3-6 months until yousee full effect. Natural supplements: Magnesium Oxide 500 mg at bed Coenzyme Q10 300 mg in AM Vitamin B2- 200 mg twice a day Feverfew 50 mg twice a day Vitamins and herbs that show potential Magnesium: Magnesium (250 mg twice a day or 500 mg at bed) has a relaxant effect on smooth muscles such as blood vessels. Individuals suffering from frequent or daily headache usually have low magnesium levels which can be increase with daily supplementation of 400-750 mg. Three trials found 40-90%average headache reduction when used as a preventative. Magnesium also demonstrated the benefit in menstrually related migraine. Magnesium is part of the messenger system in the serotonin cascade andit is a good muscle relaxant. It is also useful for constipation which can be a side effect of other medications used to treat migraine. Good sources include nuts, whole grains, and tomatoes. Magnesium comes in many different forms: Magnesium glycinate is a good choice for those with a sensitive stomach who have gastrointestinal side effects such as diarrhea with other forms of magnesium. It is anecdotally also helpful with anxiety and sleep. Magnesium threonate also has low risk of gastrointestinal side effects and anecdotally helpful with cognitive function and brain fog symptoms. Magnesium malate has low gastrointestinal side effects and is reportedly more energizing and anecdotally often helpful in fibromyalgia and chronic fatigue syndrome. Magnesium citrate is one of the most studied, popular, and well-absorbed forms of magnesium. It can also be mixed easily with liquids if you can't take pills. However, it comes with a higher risk of diarrhea and gastrointestinal side effects, although this could be helpful forthose with constipation. Magnesium oxide is also well studied, cheap, and often used for heartburn and indigestion. However, it is not well absorbed and can have some laxative side effects as well, so can also be helpful for constipation. Riboflavin (vitamin B 2) 200 mg twice a day. This vitamin assists nerve cells in the production of ATP a principal energy storing molecule. It is necessary for many chemical reactions in the body. There have been at least 3 clinical trials of riboflavin using 400 mg per day all of which suggested that migraine frequency can be decreased. All 3 trials showed significant improvement in over half ofmigraine sufferers. The supplement is found in bread, cereal, milk, meat, and poultry. Most Americans get more riboflavin than the recommended daily allowance, however riboflavin deficiency is not necessary for the supplements to help prevent headache. Feverfew: Feverfew is a common garden herb ruby to [place] and popular in [place] as a treatment for disorders typically controlled by aspirin. The mechanism of action is unknown but is believed to be related to a chemical called parthenolide which helps the body use serotonin more effectively. Serotonin helps prevent migraine and assists with resolution when it occurs. Parthenolide also inhibits the release of histamine which is linked to pain and inflammation. Consistency of active ingredients in different products can be a problem. Some formulations don't have the active ingredient (parthenolide) that prevents migraine. A parthenolide content of 0.2% is generally recommended. Typical dosage is one capsule 3 times a day. Coenzyme Q10: This is present in almost all cells in the body and is critical component for the conversion of energy. Recent studies have shown that a nutritional supplement of CoQ10 can reduce the frequency of migraine attacks by improving the energy production of cells as with riboflavin. Doses of 150 mg twice a day have been shown to be effective. Melatonin: Increasing evidence shows correlation between melatonin secretion and headache conditions. Melatonin supplementation has decreased headache intensity and duration. It is widely used as a sleep aid. Sleep is natures way of dealing with migraine. A dose of 3 mg is recommended to start for headaches including cluster headache. Higher doses up to 15 mg has been reviewed for use in Cluster headache and have been used. The rationale behind using melatonin for cluster is that many theories regarding the cause of Cluster headache center around the disruption of the normal circadian rhythm in the brain. This helps restore the normal circadian rhythm. Jazmín: Jazmín has a small amount of antihistamine and anti-inflammatory action which may help headache. It is primarily used for nausea and may aid in the absorption of other medications. HEADACHE DIET: Foods and beverages which may trigger migraine Note that only 20% of headache patients are food sensitive. You will know if you are food sensitiveif you get a headache consistently 20 minutes to 2 hours after eating a certain food. Only cut out a food if it causes headaches, otherwise you might remove foods you enjoy! What matters most for diet is to eat a well balanced healthy diet full of vegetables and low fat protein, and to not miss meals. Chocolate, other sweets ALL cheeses except cottage and cream cheese Dairy products, yogurt, sour cream, ice cream Liver Meat extracts (Bovril, Marmite, meat tenderizers) Meats or fish which have undergone aging, fermenting, pickling or smoking. These include: Hotdogs,salami,Lox,sausage, mortadellas,smoked salmon, pepperoni, Pickled ernandez Pods of broad bahena (South African beans, Kiswahili pea pods, New Zealander (faustino) beans, cano and navy beans Ripe avocado, ripe banana Yeast extracts or active yeast preparations such as Giles's or Wallace's (commercial bakes goodsare permitted) Tomato based foods, pizza (lasagna, etc.) MSG (monosodium glutamate) is disguised as many things; look for these common aliases: Monopotassium glutamate Autolysed yeast Hydrolysed protein Sodium caseinate flavorings all natural preservatives Nutrasweet Avoid all other foods that convincingly provoke headaches. Headache Prevention Strategies: 1. Maintain a headache diary; learn to identify and avoid triggers. Common triggers include: Emotional triggers: Emotional/Upset family or friends Emotional/Upset occupation Business reversal/success Anticipation anxiety Crisis-serious Post-crisis periodNew job/position Physical triggers: Vacation Day Weekend Strenuous Exercise High Altitude Location New Move Day Physical Illness Oversleep/Not enough sleep Weather changes Light: Photophobia or light sesnitivity treatment involves a balance between desensitization and reduction in overly strong input. Use dark polarized glasses outside, but not inside. Avoid bright or fluorescent light, but do not dim environment to the point that going into a normally lit room hurts. Consider FL- 41 tint lenses, which reduce the most irritating wavelengths without blocking too muchlight. These can be obtained at [employer]UpTo or [employer]UpTo Foods: see list above. 2. Limit use of acute treatments (yocy-nat-zjnnkzq medications, triptans, etc.) to no more than 2 days per week or 10 days per month to prevent medication overuse headache (rebound headache). 3. Follow a regular schedule (including weekends and holidays): Don't skip meals. Eat a balanced diet. 8 hours of sleep nightly. Minimize stress. Exercise 30 minutes per day. Being overweight is associated with a 5 times increased risk of chronic migraine. Keep well hydrated and drink 6-8 glasses of water per day. 4. Initiate non-pharmacologic measures at the earliest onset of your headache. Rest and quiet environment. Relax and reduce stress. [id number] is a free nadege that can instruct you on some simple relaxtionand breathing techniques. Http://Vinfolio is a free website that provides teaching videos on relaxation. Also, there are many apps that can be downloaded for mindful relaxation. An nadege called YOGA NIDRA will help walk you through mindfulness. Cold compresses. 5. Don't wait!! Take the maximum allowable dosage of prescribed medication at the first sign of migraine. 6. Compliance: Take prescribed medication regularly as directed and at the first sign of a migraine. 7. Communicate: Call your physician when problems arise, especially if your headaches change, increase in frequency/severity, or become associated with neurological symptoms (weakness, numbness, slurred speech, etc.). 8. Headache/pain management therapies: Consider various complementary methods, including medication, behavioral therapy, psychological counselling, biofeedback, massage therapy, acupuncture, dry needling, and other modalities. Such measures may reduce the need for medications. Counseling for pain ma nagement, where patients learn to function and ignore/minimize their pain, seems to work very well. 9. Recommend changing family's attention and focus away from patient's headaches. Instead, emphasize daily activities. If first question of day is 'How are your headaches/Do you have a headache today?', then patient will constantly think about headaches, thus making them worse. Goal is to re-directattention away from headaches, toward daily activities and other distractions. 10. Helpful Websites: www.AmericanHeadacheSociety.org www.migrainetrust.org www.headaches.org www.migraine.org.uk www.achenet.org 11. HEADACHE EXPECTATIONS: There are many types of headaches, and only a rare few in which complete relief can be expected. Ingeneral, there is no cure for headache, especially migraine based headaches. There is nothing available that completely prevents headaches from occurring, breaking through, or having periodic flare-ups and fluctuations. Regardless of what you are using on a daily basis for prevention, episodic heada ches should still be expected, and periods where frequency may escalate and fluctuate are unavoidable. There is no quick fix for most headaches. Furthermore, the longer you have had high frequency headaches (such as chronic daily headache), the longer it will likely take to expect any improvement. In fact, some people will never improve, regardless of how many medications or other treatments we try.Our treatment strategy is to evaluate for possible causes of your headache, although testing is usually always normal, even in cases of daily continuous headaches for years. Most types of headache such as migraine are electrical brain disorders (similar to how epilepsy is an electrical brain disorders). Therefore, there is no testing that will reveal this dysfunctional electrical circuitry suchon MRI, or other testing. We try to find a medication that may help lessen the frequency and/or severity of your headaches. The goal is not to completely stop them from happening, although if that happens, great! Different people respond to different medications, and some people just don't respond to anything, so it's usually a matter of trying different options. We can not predict if or when exac tly you will respond to a treatment that we provide. Preventive headache medications take 4-6 weeks to start working, and 2-3 months to see full effect,assuming you reach an effective dose. Therefore, calling or messaging frequently because you have aheadache flare prior to the 3 month michelle is unlikely to change anything, and unfortunately there isnothing available that will expedite this, so please try to avoid this. Our recommendation will gene rally be to give it adequate time first. If you are unable to wait it out for medications to work, we can also try IV infusions for some temporary relief. O In general, the best that preventive medications or other treatments (including Botox) are able to offer in migraine management (variable in other headache types) is a 50% improvement in frequency and/or severity of headache. That is our goal, and any additional benefit is considered a bonus. Some people do significantly better than this, others do not get close to this. Therefore, if your headaches are not improving by at least 3 months on your preventive strategy, contact us and we can discuss further adjustments. Keep in mind that complete headache cure is not a realistic expectation. Our Team: The nursing staff, and medical assistants are a major part of YOUR TREATMENT TEAM and will be handling your phone calls, MyChart Messages and inquiries, if any. Unless explicitly told otherwise at the time of your office visit, your study results and ensuing treatment plans will be released via [facility] and discussed during your follow-up appointment. NeoStemhart: Please ask the schedulers to give you an activation code. The main way of communication isby [employer]t rather than phone lines, so if you have not signed up, please do so. [facility] is also theway that you can review your labs and testing. We are not able to contact everyone to tell them results are normal. If you do not hear back from us regarding testing you have had, it should be considered normal or within normal range. If you have any questions about the results, you are free to message us. [facility] is meant for simple questions regarding medications, possible side effects, or other simplestraight forward questions in limited sentences, rather than multiple paragraphs of discussion. [facility] is not meant for, or efficient for these complex questions, extensive questions, extensive medication adjustments, complex new symptoms or concerns. These issues beyond simple questions require afollow up visit with myself, one of our physician assistants, nurse practitioners, or a Virtual Visit via computer or smart phone, as detailed further down. Refills: Please pay attention to when your refills will need to be renewed. Due to the volume of phone callsdaily, this could potentially take a few days, although we certainly try to honor your refill requests as soon as we can. You should call at least 1 week in advance of needing a refill to ensure you do not run out of medication. Keep in mind that refill requests on Fridays may not be filled until the following week. In regards to blood work, testing, and radiology reports these are released automatically to the patients. We do not comment on most testing on Quire in a message or commentary unless there is a concern. You will not receive a message from me of the result unless there is a specific concern of the result I need you to address further in care with us or your primary medical team. Make sure to check your my chart email or nadege. As an international referral center for syncope, autonomic dysfunction, general neurology, headachecare, neuromuscular disease, and other related conditions, seeing patients from across the world, we do not have the resource of time or staffing to address inquiries for accommodations. As such, we do not provide or complete requests for work accommodations, FMLA, disability, or other such forms. We recommend seeking guidance through your primary care provider for these requests. We are happy toprovide our office notes from your visits and other tests or evaluations performed through our clinic, which can be made available upon request to assist you with this process. [facility] of Present illness Narrative* Courtney Anderson PA-C - 06/11/2023 12:35 PM EDT Images from the original note were not included. Neurology Outpatient Clinic Date: June 11, 2023 Patient Name: Estuardo Villa Referring physician: Justus Marrufo [facility] [id number] Consult requested for headache by Dr. Mcdonald. Recommendations will be communicated via [employer] medicalrecord or [place] mail. Primary physician: [place] [address] Reason for Evaluation: Headaches Subjective HPI Estuardo Villa is a 52 year old right-handed female with history of HLD, GERD, fator V leiden, anxiety who presents for evaluation of headache. Dr. Mcdonald is the referring physician and PCP. Chart review: PCP 05/30/23- Current headache has been ongoing for 2 months. Hard to fall asleep. Eyes feel heavy/foggy. Has nausea. Meclizine not working for dizziness. Episode today while ordering coffee, they repeated order back to her and she was confused they knew what she wanted. She asked them how they knew that in which they told her because she had told them. She had no recollection of telling them what she wanted. No blurred vision. No new focal numbness or weakness. She keeps stating I just don't feel right My head doesn't feel right. MRI scheduled for 06/06/23 but insurance had denied saying there was no neuro exam documented which is untrue. I was just notified so will have to appeal it. Headache is horrible. Notes MRI brain denial has been overturned. Patient presents for evaluation of headache. Patient notes that she used to have headaches when shewas younger, 20 years ago, diagnosed with migraines at that time. Was noted to be anemic, having heavy menstruation, and then had a partial hysterectomy. She notes at that time her headaches resolvedshortly after the surgery. Also notes she had a cervical surgery around that time as well. Her previous headaches used to be primarily to the right posterior aspect of the head with associated aura and paresthesias to the face and arm. However, the headaches that she began experiencing a few monthsago do not have an aura, but have migrainous features. The location of her headache is changed well, primarily frontal behind her eyes. Has associated eye pain, brain fog, nausea, dizziness, photophobia and phonophobia. Was started on Topamax 25 mg on 05-20-2023 with no significant improvement in her headaches. Has used Maxalt for abortive therapy with good relief. Does note that her headaches worsen with exertion and can occasionally occur when she stands up quickly. No onset with Valsalva. Also notes dizziness without a headache. This occurs weekly, has difficulty describing the sensation. Does not experience a room spinning sensation, not necessarily lightheaded. Does feel rather off balance and not overall, sometimes has a sensation of presyncope but nosyncope. Notes that this dizziness only occurs when she is walking or exerting yourself, does not come on with turning around in bed or turning her head. This dizziness will last about 10 seconds andis associated with nausea. Has not vomited from it, no history of vertigo in the past, no vision changes, ear pain, hearing changes or tunnel vision with this. Of note, patient states that her primary care told her that based on laboratory evaluation she is currently going through menopause. He has also ordered a MRI of the brain that has just been approved. Current Headache treatment Preventative: topirimate 25mg- just started Abortive: Rizatriptan 10mg Medications effective? yes # of doses of abortive medications per month: just started Previous Medications: Prozac Vistaril Maxalt Topiramate Headache Description Onset: 4 months Total headache days per month: almost daily Total headache attacks per month: almost daily Headache free days: Yes Duration of attacks: 1-3 days Severity of headaches? 08/20 Onset to Peak: gradual Location: behind the eyes Aura: None Prodrome:abnormal taste. Accompanying symptoms: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 Other pulmonary embolism and infarction 1987 Pulmonary embolism & factor 5 Leiden PAST SURGICAL HISTORY Procedure Laterality Date DELIVERY ONLY 1987,1989,1993 , low transverse EGD 11/24/2020 ESOPHAGOGASTRODUODENOSCOPY TRANSORAL DIAGNOSTIC 04/13/[address] [facility] Dr. Lundy ESOPHAGOGASTRODUODENOSCOPY TRANSORAL DIAGNOSTIC 12/08/2018 EGD HYSTERECTOMY HX 2005 left ovaries INCISE FINGER TENDON SHEATH Left 01/11/2021 Left middle trigger finger release GUERIN W/O FACETEC FORAMOT/DSC 1/2 VRT SGM CRV 2005 Laminectomy, cervical and titianium placed NECK SURGERY HX SKIN BIOPSY HX VAGINAL HYSTERECTOMY ALLERGIES Allergen Reactions Aleve [Naproxen Sod* GI Upset Bactrim [Sulfametho* Intolerance dizziness and upset stomach Latex Rash Lipitor [Atorvastat* Intolerance Elevated Liver enzymes Penicillins Unknown Tape [Adhesive Tape* Rash Tylenol [Acetaminop* Other: See Comments Nausea Vicodin [Hydrocodon* Vomiting Current Outpatient Medications Medication Sig meclizine (ANTIVERT) 12.5 mg tab Take 12.5 mg by mouth every 6 hours as needed. FLUoxetine (PROZAC) 20 mg capsule Take 1 capsule by mouth once daily. traMADol (ULTRAM) 50 mg tablet Take 1 tablet by mouth every 6 hours as needed for pain. pravastatin (PRAVACHOL) 20 mg tablet Take 1 tablet by mouth daily at bedtime. pantoprazole DR (PROTONIX) 40 mg tablet Take 1 tablet by mouth once daily. No current facility-administered medications for this visit. Social History Tobacco Use Smoking status: Never Smokeless tobacco: Never Vaping Use Vaping Use: Never used Substance Use Topics Alcohol use: No Drug use: No Family History Problem Relation Age of Onset Diabetes Mother Headache Mother Hypertension Mother Heart Father 3 NE's, age 52 Cancer Maternal Grandmother Uterine Blood Disease Brother Leiden factor 5, Blood Disease Other Brother's son, Leiden Factor 5 PHYSICAL EXAM: Vitals: Blood pressure 138/81, pulse 60, temperature 36.8 C (98.2 F), temperature source Temporal, weight 69.6 kg (153 lb 8 oz), SpO2 100 %. Well-appearing and in no acute distress. EYES: Sclerae are anicteric bilaterally. LYMPHATIC: There is no palpable cervical, supraclavicular adenopathy. RESPIRATORY: Inspiratory breath sounds are of normal intensity in all [place]. No rales, wheezes or rhonchi. CARDIOVASCULAR: Rhythm is regular. ABDOMEN: The abdomen is nondistended Extremities: No swelling or edema. SKIN: No jaundice. LABORATORY DATA: Component Latest Ref Rng & Units 04/20/2021 01/23/2023 WBC 3.70 - 11.00 k/uL 5.70 RBC 3.90 - 5.20 m/uL 4.78 Hemoglobin 11.5 - 15.5 g/dL 10.7 (L) Hematocrit 36.0 - 46.0 % 35.3 (L) MCV 80.0 - 100.0 fL 73.8 (L) MCH 26.0 - 34.0 pg 22.4 (L) MCHC 30.5 - 36.0 g/dL 30.3 (L) RDW-CV 11.5 - 15.0 % 18.5 (H) Platelet Count 150 - 400 k/uL 297 MPV 9.0 - 12.7 fL 10.8 Neut% % 57.1 Abs Neut (ANC) 1.45 - 7.50 k/uL 3.26 Lymph% % 29.8 Abs Lymph 1.00 - 4.00 k/uL 1.70 Glades% % 10.9 Abs Glades <0.87 k/uL 0.62 Eosin% % 1.4 Abs Eosin <0.46 k/uL 0.08 Baso% % 0.4 Abs Baso <0.11 k/uL <0.03 Immature Gran % % 0.4 IMMATURE GRANS (ABS) <0.10 k/uL <0.03 NRBC /100 WBC 0.0 Absolute nRBC <0.01 k/uL <0.01 DTYPE Auto Protein, Total 6.3 - 8.0 g/dL 7.3 Albumin 3.9 - 4.9 g/dL 4.7 Calcium 8.5 - 10.2 mg/dL 10.0 Bilirubin, Total 0.2 - 1.3 mg/dL 0.4 Alkaline Phosphatase 34 - 123 U/L 85 AST 13 - 35 U/L 25 ALT 7 - 38 U/L 15 Glucose 74 - 99 mg/dL 90 BUN 7 - 21 mg/dL 11 Creatinine 0.58 - 0.96 mg/dL 0.97 (H) Sodium 136 - 144 mmol/L 137 Potassium 3.7 - 5.1 mmol/L 4.3 Chloride 97 - 105 mmol/L 104 CO2 22 - 30 mmol/L 23 Anion Gap 9 - 18 mmol/L 10 eGFR >=60 mL/min/1.73m 70 Iron 41 - 186 ug/dL 20 (L) 27 (L) TIBC 232 - 386 ug/dL 412 (H) 478 (H) Transferrin Saturation 15.0 - 57.0 % 5 (L) 5.6 (L) Ferritin 14.7 - 205.1 ng/mL 10.3 (L) 7.7 (L) Vitamin B12 232 - 1,245 pg/mL 456 TSH 0.270 - 4.200 mIU/L 2.140 3.500 Component Latest Ref Rng & Units 05/03/2023 WBC 3.70 - 11.00 k/uL 4.92 RBC 3.90 - 5.20 m/uL 4.79 Hemoglobin 11.5 - 15.5 g/dL 13.4 Hematocrit 36.0 - 46.0 % 41.0 MCV 80.0 - 100.0 fL 85.6 MCH 26.0 - 34.0 pg 28.0 MCHC 30.5 - 36.0 g/dL 32.7 RDW-CV 11.5 - 15.0 % 19.6 (H) Platelet Count 150 - 400 k/uL 216 MPV 9.0 - 12.7 fL 10.9 Neut% % 42.8 Abs Neut (ANC) 1.45 - 7.50 k/uL 2.10 Lymph% % 46.7 Abs Lymph 1.00 - 4.00 k/uL 2.30 Glades% % 7.5 Abs Glades <0.87 k/uL 0.37 Eosin% % 2.4 Abs Eosin <0.46 k/uL 0.12 Baso% % 0.4 Abs Baso <0.11 k/uL <0.03 Immature Gran % % 0.2 IMMATURE GRANS (ABS) <0.10 k/uL <0.03 NRBC /100 WBC 0.0 Absolute nRBC <0.01 k/uL <0.01 DTYPE Auto Iron 41 - 186 ug/dL 97 TIBC 232 - 386 ug/dL 300 Transferrin Saturation 15.0 - 57.0 % 32.3 Ferritin 14.7 - 205.1 ng/mL 113.0 IgA 70 - 400 mg/dL 179 ASSESSMENT/PLAN: (D50.0) Iron deficiency anemia due to chronic blood loss (primary encounter diagnosis) Assessment: -Previous JESI from menorrhagia in 2003. -Had partial hysterectomy in 2004. No menses since. -Received 5 doses iron sucrose and no longer has pica. -Fatigue improved. -Reviewed the results of her lab work from last week. Counts normal. Iron levels normal. -She was seen in consultation for EGD and colonoscopy. She rescheduled them for May. -On PPI longstanding. Plan: -She is aware to maintain appointment for EGD and colonoscopy. -Can follow up with Dr. Mcdonald. Recommend periodic check of CBC and iron studies, perhaps every 6 months or so for a year or 2 then annually thereafter. -Referral back here if becomes iron deficient again. (D68.51) Factor V Leiden ([facility]) Assessment: -The patient had a pulmonary embolism following in 1987. She had 2 further pregnancies for which she received subcutaneous heparin or Lovenox for prophylaxis. No VTE with those pregnancies.She had C-spine surgery without anything other than standard VTE prophylaxis. She does not smoke. -Again discussed with her the general indication for indefinite anticoagulation typically would be either an unprovoked VTE in the setting of factor V Leiden or 2 provoked episodes of VTE. She has noclear indication to go on anticoagulation at this time unless indicated for a surgery. -She is contemplating abdominoplasty. Has not seen a plastic surgeon but has called around was toldthat she was high risk for surgery due to her history of pulmonary embolism. I explained that she should perhaps get a consultation with a plastic surgeon. Then depending on surgery, appropriate recommendations for VTE prophylaxis could be made. Plan: -She will talk with Dr. Mcdonald about referral to plastic surgery at [facility]. Portions of this documentation were copied and pasted from previous office visit notes in order to provide a cohesive continuity of the history. The note has been reviewed and edited and updated as necessary. I spent a total of 25 minutes on the date of the service which included preparing to see the patient, [id number] patient care, completing clinical documentation, obtaining and/or reviewing separately obtained history, performing a medically appropriate examination, counseling and educating the pat ient/family/caregiver, ordering medications, tests, or procedures, communicating with other HCPs (not separately reported), and communicating results to the patient/family/caregiver. Roger Unger DO documented in this encounterSt. Anthony'S Hospital06-27-2023 Miscellaneous Notes* Telephone Encounter - Courtney Iyer LPN - 05/07/2023 9:33 AM EDT Second attempt to contact patient, VM. Also attempted to contact patient at her work number unsuccessfully. Courtney Iyer LPN * Telephone Encounter - Courtney Iyer LPN - 05/06/2023 4:36 PM EDT Left message for patient to contact office. Tomorrow's appointment is not necessary, blood counts are doing well but Celiac results are not complete. We will call her with all results. Courtney Iyer LPN documented in this encounterSt. Anthony'S Hospital05-04-2023 Instructions* Patient Instructions* DELORIS Alonso - 03/14/2023 11:30 AM EDT R.I.C.E. The general care of your injury includes the following: Resting, Icing, Compressing and Elevating the injured area. Remember this as RICE. REST: Limit the use of the injured body part. ICE: By applying ice to the affected area, swelling and pain can be reduced. Place some ice cubes in a re-sealable (Ziploc) bag and add some water. Put a thin washcloth between the bag and your skin.Apply the ice bag to the area for at least 20 minutes. Do this at least 4 times per day. Using the ice for longer times and more frequently is OK. NEVER APPLY ICE DIRECTLY TO THE SKIN. COMPRESS: Compression means to apply pressure around the injured area such as with a splint, cast or an dariana bandage. Compression decreases swelling and improves comfort. Compression should be tight enough to relieve swelling but not so tight as to decrease circulation. Increasing pain, numbness, tingling, or change in skin color, are all signs of decreased circulation. ELEVATE: Elevate the injured part. For example, elevate your foot by placing it on a chair while sitting, or propping it up on pillows when lying down. documented in this encounterSt. Anthony'S Hospital05-04-2023 History of Present illness Narrative* Maida Barragan RT(R) - 03/14/2023 11:10 AM EDT Radiology Service Progress Note PATIENT NAME: Estuardo Villa DATE OF SERVICE: March 14, 2023 TIME: 11:06 AM PATIENT IDENTITY VERIFICATION COMPLETED USING TWO (2) IDENTIFIERS: Name and Date of confirmedby patient verbally. FALL SCREENING: Has the patient had 2 falls in the last year or 1 fall with injury or currently using an Ambulatory Assistive Device (Walker, Cane, Wheelchair, Crutches, etc.)? No PATIENT GENDER DATA: Female. status: : No status: NO. PATIENT RELEVANT IMPLANT DATA REVIEWED: Yes RADIOLOGY DEPARTMENT: General X-ray: Exam(s) Completed: Rib X-Ray: Right Spine X-Ray(s): Thoracic PERIPHERAL IV DATA: Not applicable SIGNED BY: RT Srini(R) March 14, 2023 11:06 AM documented in this encounterSt. Anthony'S Hospital05-04-2023 History of Present illness Narrative* DELORIS Alonso - 03/14/2023 11:04 AM EDT Images from the original note were not included. This note was created using Transifexriter. Subjective Estuardo Villa is a 52 year old female. HPI 52-year-old female presents for right-sided back and rib pain x5 days. Patient states that overthe weekend she started getting right-sided thoracic back pain. She states she has been working outa lot and feels like she pulled a muscle while working out. Does not recall specific injury or fall. The pain radiates around to the right side of her ribs. Pain is worse with bending twisting and turning. She denies any chest pain or shortness of breath. No vomiting. No hematuria. She has been taking ibuprofen with minimal improvement. She has no shortness of breath. No leg swelling. No recent travel or surgery. PAST MEDICAL HISTORY Diagnosis Date Anxiety state, unspecified Blood dyscrasia Carpal tunnel syndrome Factor V Leiden (HCC) Galactorrhea not associated with childbirth 2006 Hiatal hernia 04/13/2003 EGD- [place] History of 1987,1989,1993 Iron deficiency anemia, unspecified Mental disorder Migraine, unspecified, without mention of intractable migraine without mention of status migrainosus Other pulmonary embolism and infarction 1987 Pulmonary embolism & factor 5 Leiden PAST SURGICAL HISTORY Procedure Laterality Date DELIVERY ONLY 1987,1989,1993 , low transverse EGD 11/24/2020 ESOPHAGOGASTRODUODENOSCOPY TRANSORAL DIAGNOSTIC 04/13/[address] [facility] Dr. Lundy ESOPHAGOGASTRODUODENOSCOPY TRANSORAL DIAGNOSTIC 12/08/2018 EGD HYSTERECTOMY HX 2005 left ovaries INCISE FINGER TENDON SHEATH Left 01/11/2021 Left middle trigger finger release GUERIN W/O FACETEC FORAMOT/DSC 1/2 VRT SGM CRV 2006 Laminectomy, cervical and titianium placed NECK SURGERY HX SKIN BIOPSY HX VAGINAL HYSTERECTOMY ALLERGIES Aleve [Naproxen Sodium], Bactrim [Sulfamethoxazole], Latex, Lipitor [Atorvastatin Calcium], Penicillins, Tape [Adhesive Tape (Rosins)], Tylenol [Acetaminophen], and Vicodin [Hydrocodone-Acetaminophen] MEDICATIONS meclizine (ANTIVERT) 12.5 mg tab Take 25 mg by mouth once daily. FLUoxetine (PROZAC) 20 mg capsule Take 1 capsule by mouth once daily. traMADol (ULTRAM) 50 mg tablet Take 1 tablet by mouth every 6 hours as needed for pain. pravastatin (PRAVACHOL) 20 mg tablet Take 1 tablet by mouth daily at bedtime. pantoprazole DR (PROTONIX) 40 mg tablet Take 1 tablet by mouth once daily. FAMILY HISTORY Problem Relation Age of Onset Diabetes Mother Headache Mother Hypertension Mother Heart Father 3 NE's, age 52 Cancer Maternal Grandmother Uterine Blood Disease Brother Leiden factor 5, Blood Disease Other Brother's son, Leiden Factor 5 Social History Tobacco Use Smoking status: Never Smokeless tobacco: Never Vaping Use Vaping Use: Never used Substance Use Topics Alcohol use: No Drug use: No Review of Systems Constitutional: Negative for chills and fever. HENT: Negative for congestion, ear pain and sore throat. Respiratory: Negative for cough and shortness of breath. Cardiovascular: Negative for chest pain. Gastrointestinal: Negative for diarrhea and vomiting. Musculoskeletal: Positive for back pain. Objective BP 128/76 Pulse (!) 58 Temp 36.9 C (98.4 F) Resp 18 Wt 71 kg (156 lb 9.6 oz) SpO2 98% BMI 26.90 kg/m Physical Exam Vitals and nursing note reviewed. Constitutional: General: She is not in acute distress. Appearance: Normal appearance. She is not toxic-appearing. HENT: Nose: Nose normal. Mouth/Throat: Mouth: Mucous membranes are moist. Eyes: Conjunctiva/sclera: Conjunctivae normal. Cardiovascular: Rate and Rhythm: Normal rate and regular rhythm. Pulmonary: Effort: Pulmonary effort is normal. Breath sounds: Normal breath sounds. Abdominal: Tenderness: There is no abdominal tenderness. Musculoskeletal: Thoracic back: Tenderness present. No bony tenderness. Decreased range of motion. Back: Comments: Right-sided thoracic paraspinal muscle tenderness. No midline tenderness. Pain worse withmovement. No rash. Normal sensation and strength all extremities. Mild tenderness over the right posterior ribs. No anterior tenderness. No abdominal tenderness. Skin: General: Skin is warm and dry. Neurological: Mental Status: She is alert. Assessment and Plan ASSESSMENT/PLAN: 1. Acute right-sided thoracic back pain - ICD9: 724.1, ICD10: M54.6 (primary diagnosis) Mechanical low back pain - Ice for localized tenderness - Muscle relaxant- see orders - XR RIBS/CHEST 3V AP RIB/OBLS/CXR RIGHT - XR THORACIC GENERAL 3V AP/LAT/SWIMMERS - XR reveals degenerative changes in thoracic spine. 2. Rib pain on right side - ICD9: 786.50, ICD10: R07.81 Atypical chest pain, symptoms are not consistent with cardiac ischemia due to nonexertional nature of symptom and localization of the pain possible etiology include Costochondritis/chest wall pain, musculoskeletal, and Pulmonary embolis - XR RIBS/CHEST 3V AP RIB/OBLS/CXR RIGHT - XR THORACIC GENERAL 3V AP/LAT/SWIMMERS - XR reveals degenerative change thoracic spine. XR ribs no acute abnormality. - Suspect pain is musculoskeletal in nature. Pain started after patient was working out. Pain worsewith movement and palpation. - Pt does have history of PE, symptoms not consistent with this on history and exam. She was given red flag symptoms and when to go to ER including if she develops CP, SOB, worsening pain. She understands. - Recommend rest, ice, muscle relaxer, NSAIDs. Diagnosis and treatment plan were discussed and questions were answered to the patient's satisfaction. Pt acknowledged understanding of concepts and follow up plan. Specific signs and symptoms that would indicate the need for higher level of care were discussed in detail warranting prompt ER evaluation. documented in this encounterSt. Anthony'S Hospital04-28-2023 History of Present illness Narrative* Roger Unger, DO - 03/08/2023 1:32 PM EDT Hematologic problem(s): 1) JESI. 2) Heterozygous factor V Leiden. 3) pulmonary embolism. HPI: The patient is a 52-year-old female with past medical history significant for hyperlipidemia, palpitations, hiatal hernia, dysphagia, reflux, factor V Leiden, iron deficiency, migraine and carpal tunnel syndrome. Recently evaluated in this office for increasing exertional dyspnea, fatigue and dizziness. Has a prior history of iron deficiency anemia secondary to menorrhagia. Previous partial hysterectomy. Per Dr. Escalera's history (reviewed and verified by me today): She has no family history of colon or gastric CA. She does take nonsteroidal anti-inflammatory medications including ibuprofen and naproxen [id number]. Her intake has increased recently with worsening headaches. She said that acetaminophen bothers her stomach. She also stated she has significant GI intolerance to oral iron supplements. She had EGD in 2020 that revealed erosions and superficial ulcerations very characteristic of effect of medication specially aspirin and or nonsteroidal anti-inflammatory medications JESI due to menorrhagia--seen here in 2003. Partial hysterectomy 2004. No menses since. Recently completed 5 doses iron sucrose 03/06/2023. No longer having pica for ice. No increase in energy. No dyspnea. No exertional chest pain/pressure. EGD 11/24/2020: The examined jejunum was normal. The examined duodenum was normal. Scattered mild inflammation characterized by erosions, erythema and shallow ulcerations was found in the entire examined stomach. Biopsies were taken with a cold forceps for histology. A medium-sized hiatal hernia was present. Non-severe esophagitis with no bleeding was found. Biopsies were taken with a cold forceps for histology. The middle third of the esophagus was normal. Biopsies were taken with a cold forceps for histology Pathology: 1. Stomach, antrum, biopsy (A) Gastric antral mucosa with chronic inactive gastritis. - An immunohistochemical stain for Helicobacter pylori organisms has been ordered and will be reported in an addendum. 2. Esophagus, distal, biopsy (B) Inflamed squamous and cardiac-type mucosa consistent with gastroesophageal reflux injury; negative for intestinal metaplasia. 3. Esophagus, mid, biopsy (C) Squamous mucosa with no diagnostic abnormality Given the background of chronic gastritis a Helicobacter pylori immunostain was performed on block A1 and is negative for Helicobacter pylori organisms. Oral iron makes her very nauseated. Had in 1987 for first . Had PE following. Hospitalized for two weeks. Was on Coumadin for about 6 months. Had 3 subsequent pregnancies and received sq heparin or Lovenox. Received Lovenox for partial hysterectomy. Had bleeding afterward. Had anterior approach cervical disk surgery without perioperative anticoagulation. PAST MEDICAL HISTORY Diagnosis Date Anxiety state, unspecified Blood dyscrasia Carpal tunnel syndrome Factor V Leiden (HCC) Galactorrhea not associated with childbirth 2007 Hiatal hernia 04/13/2003 [facility]AL[facility]- [place] History of 1987,1989,1993 Iron deficiency anemia, unspecified Mental disorder Migraine, unspecified, without mention of intractable migraine without mention of status migrainosus Other pulmonary embolism and infarction 1987 Pulmonary embolism & factor 5 Leiden PAST SURGICAL HISTORY Procedure Laterality Date DELIVERY ONLY 1987,1989,1993 , low transverse EGD 11/24/2020 ESOPHAGOGASTRODUODENOSCOPY TRANSORAL DIAGNOSTIC 04/13/[address] [facility] Dr. Lundy ESOPHAGOGASTRODUODENOSCOPY TRANSORAL DIAGNOSTIC 12/08/2018 EGD HYSTERECTOMY HX 2005 left ovaries INCISE FINGER TENDON SHEATH Left 01/11/2021 Left middle trigger finger release GUERIN W/O FACETEC FORAMOT/DSC 11/12 VRT SGM CRV 2005 Laminectomy, cervical and titianium placed NECK SURGERY HX SKIN BIOPSY HX VAGINAL HYSTERECTOMY ALLERGIES Allergen Reactions Aleve [Naproxen Sod* GI Upset Bactrim [Sulfametho* Intolerance dizziness and upset stomach Latex Rash Lipitor [Atorvastat* Intolerance Elevated Liver enzymes Penicillins Unknown Tape [Adhesive Tape* Rash Tylenol [Acetaminop* Other: See Comments Nausea Vicodin [Hydrocodon* Vomiting Current Outpatient Medications Medication Sig meclizine (ANTIVERT) 12.5 mg tab Take 25 mg by mouth once daily. FLUoxetine (PROZAC) 20 mg capsule Take 1 capsule by mouth once daily. traMADol (ULTRAM) 50 mg tablet Take 1 tablet by mouth every 6 hours as needed for pain. pravastatin (PRAVACHOL) 20 mg tablet Take 1 tablet by mouth daily at bedtime. pantoprazole DR (PROTONIX) 40 mg tablet Take 1 tablet by mouth once daily. No current facility-administered medications for this visit. Social History Tobacco Use Smoking status: Never Smokeless tobacco: Never Vaping Use Vaping Use: Never used Substance Use Topics Alcohol use: No Drug use: No Family History Problem Relation Age of Onset Diabetes Mother Headache Mother Hypertension Mother Heart Father 3 NE's, age 52 Cancer Maternal Grandmother Uterine Blood Disease Brother Leiden factor 5, Blood Disease Other Brother's son, Leiden Factor 5 ROS: Constitutional: Denies episodes of fever and night sweats. Normal appetite. Neuro: Denies vertigo, dizziness and imbalance. Denies symptoms of neuropathy. HEENT: No recent change in voice, vision or hearing. Resp: Denies cough, wheeze and hemoptysis. Denies shortness of breath at rest. CVS: Denies exertional chest pain, PND, orthopnea and LE edema. GI: Denies dysgeusia. Denies symptoms of stomatitis. Denies dysphagia and odynophagia. Reflux (bad if off PPI one day), n/v, change in bowel habits and abdominal pain. : Denies dysuria or gross hematuria. No symptoms of bladder outlet obstruction. Endo: Denies hot flashes. Denies polyuria and polydipsia. Denies heat and cold intolerance. Musculoskeletal: Denies bone, back, joint and muscular pain. Derm: Denies rash. Denies jaundice and diffuse pruritis. Heme: Denies unusual bleeding and unexplained bruising. Psych: Normal mood. PHYSICAL EXAM: Vitals: Blood pressure 116/76, pulse (!) 58, temperature 37.5 C (99.5 F), height 162.5 cm (5' 3.98), weight 71.7 kg (158 lb), SpO2 95 %. Well-appearing and in no acute distress. EYES: Sclerae are anicteric bilaterally. LYMPHATIC: There is no palpable cervical, supraclavicular or axillary adenopathy. RESPIRATORY: Inspiratory breath sounds are of normal intensity in all armando. No rales, wheezes or rhonchi. CARDIOVASCULAR: Rhythm is regular. ABDOMEN: The abdomen is nondistended. No organomegaly. No tenderness. Extremities: No swelling or edema. SKIN: No jaundice or rash. No petechiae. NEUROLOGIC: plywood matcher II-XII are grossly intact. No focal motor weakness. LABORATORY DATA: Component Latest Ref Rng & Units 04/20/2021 01/23/2023 WBC 3.70 - 11.00 k/uL 5.70 RBC 3.90 - 5.20 m/uL 4.78 Hemoglobin 11.5 - 15.5 g/dL 10.7 (L) Hematocrit 36.0 - 46.0 % 35.3 (L) MCV 80.0 - 100.0 fL 73.8 (L) MCH 26.0 - 34.0 pg 22.4 (L) MCHC 30.5 - 36.0 g/dL 30.3 (L) RDW-CV 11.5 - 15.0 % 18.5 (H) Platelet Count 150 - 400 k/uL 297 MPV 9.0 - 12.7 fL 10.8 Neut% % 57.1 Abs Neut (ANC) 1.45 - 7.50 k/uL 3.26 Lymph% % 29.8 Abs Lymph 1.00 - 4.00 k/uL 1.70 Glades% % 10.9 Abs Glades <0.87 k/uL 0.62 Eosin% % 1.4 Abs Eosin <0.46 k/uL 0.08 Baso% % 0.4 Abs Baso <0.11 k/uL <0.03 Immature Gran % % 0.4 IMMATURE GRANS (ABS) <0.10 k/uL <0.03 NRBC /100 WBC 0.0 Absolute nRBC <0.01 k/uL <0.01 DTYPE Auto Protein, Total 6.3 - 8.0 g/dL 7.3 Albumin 3.9 - 4.9 g/dL 4.7 Calcium 8.5 - 10.2 mg/dL 10.0 Bilirubin, Total 0.2 - 1.3 mg/dL 0.4 Alkaline Phosphatase 34 - 123 U/L 85 AST 13 - 35 U/L 25 ALT 7 - 38 U/L 15 Glucose 74 - 99 mg/dL 90 BUN 7 - 21 mg/dL 11 Creatinine 0.58 - 0.96 mg/dL 0.97 (H) Sodium 136 - 144 mmol/L 137 Potassium 3.7 - 5.1 mmol/L 4.3 Chloride 97 - 105 mmol/L 104 CO2 22 - 30 mmol/L 23 Anion Gap 9 - 18 mmol/L 10 eGFR >=60 mL/min/1.73m 70 Iron 41 - 186 ug/dL 20 (L) 27 (L) TIBC 232 - 386 ug/dL 412 (H) 478 (H) Transferrin Saturation 15.0 - 57.0 % 5 (L) 5.6 (L) Ferritin 14.7 - 205.1 ng/mL 10.3 (L) 7.7 (L) Vitamin B12 232 - 1,245 pg/mL 456 TSH 0.270 - 4.200 mIU/L 2.140 3.500 ASSESSMENT/PLAN: (D50.0) Iron deficiency anemia due to chronic blood loss (primary encounter diagnosis) Assessment: -Previous JESI from menorrhagia in 2003. -Had partial hysterectomy in 2004. No menses since. -Received 5 doses iron sucrose and no longer has pica. -Still has generalized fatigue. -Discussed importance of colonoscopy. She agrees. -Reasonable to repeat EGD given her reflux. -On PPI longstanding. Plan: -Recheck labs in April as scheduled. -Referral to Dr. Salcido for colonoscopy. (D68.51) Factor V Leiden (HCC) Assessment: -The patient had a pulmonary embolism following in 1987. She had 2 further pregnancies for which she received subcutaneous heparin or Lovenox for prophylaxis. No VTE with those pregnancies.She had C-spine surgery without anything other than standard VTE prophylaxis. She does not smoke. -I discussed with her the general indication for indefinite anticoagulation typically would be either an unprovoked VTE in the setting of factor V Leiden or 2 provoked episodes of VTE. She has no clear indication to go on anticoagulation at this time unless indicated for a surgery. -She has 3 sons and no daughters. She has several granddaughters. -She is clear for dental extraction. Plan: -She will talk with her granddaughters' pediatricians about having them tested. I spent a total of 50 minutes on the date of the service which included preparing to see the patient, [id number] patient care, completing clinical documentation, obtaining and/or reviewing separately obtained history, performing a medically appropriate examination, counseling and educating the pat ient/family/caregiver, communicating with other HCPs (not separately reported), and communicating results to the patient/family/caregiver. Roger Unger DO documented in this encounterSt. Anthony'S Hospital04-17-2023 Miscellaneous Notes* Letter - Mammography Coordinator - 02/25/2023 11:50 AM EDT February 26, 2023 PID: [id number] Estuardo Villa [address] [facility] [facility] [address] [place] [address] Dear Ms. Villa, We are pleased to inform you that the results of your recent breast imaging exam on 02/22/2023 are normal. Early detection of cancer is very important. We also understand recommendations regarding breast cancer screening are controversial. Please discuss with your primary care provider which strategy is best for you and whether a mammogram is right for you. Your imaging studies and report will be [facility] as part of [facility] permanent medical record and are available for your continuing care. Thank you for allowing us to help in meeting your health care needs. Sincerely, Dr. Samson Interpreting Radiologist [facility] (Normal over 40) documented in this encounterSt. Anthony'S Hospital04-14-2023 History of Present illness Narrative* Eva Farooq, RT(R) - 02/22/2023 11:30 AM EDT Radiology Service Progress Note PATIENT NAME: Estuardo Villa DATE OF SERVICE: February 22, 2023 TIME: 11:10 AM PATIENT IDENTITY VERIFICATION COMPLETED USING TWO (2) IDENTIFIERS: Name and Date of confirmedby patient verbally. FALL SCREENING: Has the patient had 2 falls in the last year or 1 fall with injury or currently using an Ambulatory Assistive Device (Walker, Cane, Wheelchair, Crutches, etc.)? No PATIENT GENDER DATA: Female. status: : No status: NO. PATIENT RELEVANT IMPLANT DATA REVIEWED: Not Applicable RADIOLOGY DEPARTMENT: Mammography PERIPHERAL IV DATA: Not applicable SIGNED BY: RT Navid(R) February 22, 2023 11:10 AM documented in this encounterSt. Anthony'S Hospital04-11-2023 Miscellaneous Notes* Telephone Encounter - Kelly Guidry - 02/19/2023 4:51 PM EDT Placed call to patient and dental office in regards to extraction procedure. Needing to know if procedure was performed. Dental office never returned our call from 5 days ago. Message left for both patient and dental office to return call. Closing encounter. Kelly Guidry * Telephone Encounter - Jg Box LPN - 02/14/2023 2:07 PM EDT Left message for office to call back and speak with nurse. * Telephone Encounter - Justus Mcdonald MD - 02/14/2023 2:01 PM EDT Is ok for procedure. As long as she moves around after procedure. Only issue is if she is bedbound etc after a surgery. * Telephone Encounter - Sharon Tobias LPN - 02/14/2023 1:54 PM EDT Alessandra with [facility] Dental office calling. They have pt there now for a extraction (3) teeth). 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 The dentist would like to know if you can give a medical clearance on pt and call them right back. Please contact Dentist office at [phone] with verbal. Sharon Tobias LPN documented in this encounterSt. Anthony'S Hospital04-07-2023 Miscellaneous Notes* Telephone Encounter - JOE Medina - 02/15/2023 10:41 AM EDT SHERRY 02/04/23 with NARINDER Appointment scheduled 08/09/23 with NARINDER Please advise. Thank you. JOE Medina * Telephone Encounter - Alyssa Esquivel - 02/15/2023 10:34 AM EDT Patient has been identified by name and date of : Yes Requested Prescriptions Pending Prescriptions Disp Refills FLUoxetine (PROZAC) 20 mg capsule 30 capsule 5 Sig: Take 1 capsule by mouth once daily. RX INSTRUCTIONS: Patient aware RX will be sent to pharmacy. No need to notify patient. Alyssa Esquivel documented in this encounterSt. Anthony'S Hospital03-27-2023 Instructions* Patient Instructions* Luis Vital PA-C - 02/04/2023 4:03 PM EDT HEALTH MAINTENANCE: Your Body mass index is 28.34 kg/m . (Target BMI: 19-25) Regular aerobic exercise, low fat diet, and periodic exams are recommended Living Will & Medical Power of Grooving Lathe Tender recommended Periodic Pap smear per risk profile. Mammogram recommended yearly. Colon cancer screening by age 50 & every 5-10 years. Calcium intake of 1200-1500mg elemental calcium per day and 1,000-2,000 IU of Vitamin D3/cholecalciferol daily. Bone mineral density (by age 65 or sooner if other risk factors for osteoporosis). IMMUNIZATIONS: TD at age 50 or every 10 years Pneumovax (between ages 50-65) Recommend consideration for Zostavax (shingles vaccine) in women age 60 and older. Yearly flu vaccine in the fall for those 50 and older LABS: Thyroid screening every 5 years after age 50 Fasting blood sugar every 3 years after age 45 Fasting cholesterol every five years after age 45 documented in this encounterSt. Anthony'S Hospital03-27-2023 History of Present illness Narrative* Luis Vital PA-C - 02/04/2023 3:23 PM EDT 52 year old female with c/o was at [facility] earlier for drug and urine testing showed positive for blood. Very concerned about weight loss, friends are getting injections which seem to help. Asking for this treatment Hyperlipidemia, unspecified hyperlipidemia type Current medication Pravachol 20mg daily HS Taking medication consistently Yes Observing low cholesterol high fiber diet yes Muscle aches No Stomach complaints/ diarrhea No Last 2 Lipids: Component Latest Ref Rng & Units 07/16/2020 01/23/2023 Cholesterol, Total <200 mg/dL 212 (H) Triglyceride <150 mg/dL 61 HDL Cholesterol >39 mg/dL 76 LDL Cholesterol <100 mg/dL 124 (H) Non HDL Cholesterol <130 mg/dL 136 (H) Fasting Time hrs Unknown VLDL Cholesterol <30 mg/dL 12 TC:HDL Ratio <5.10 2.79 LDL:HDL Ratio <2.54 1.63 Total Cholesterol, Nonfasting <200 mg/dL 349 (H) Triglycerides, Nonfasting <150 mg/dL 156 (H) HDL Cholesterol, Nonfasting >39 mg/dL 67 LDL Cholesterol, Nonfasting <100 mg/dL 251 (H) Non HDL Cholesterol, Nonfasting <130 mg/dL 282 (H) VLDL Cholesterol, Nonfasting <30 mg/dL 31 (H) Total Chol/HDL Ratio, Nonfasting <5.10 mg/dL 5.21 (H) LDL/HDL Ratio, Nonfasting <2.54 mg/dL 3.75 (H) Dizziness Associated with anemia. Has improved with iron infusions Anxiety Current medications: Fluoxetine 20mg daily Mood has been same old Son is in penitentiary. Very concerned about weight gain Iron deficiency anemia, unspecified iron deficiency anemia type Esophageal dysphagia Hiatal hernia Current medications: Pantoprazole 40mg daily Current symptoms: none. Last Mg level if on PPI chronically: 07/16/2020 WNL. Heartburn is controlled: Yes. Very occasional brash Dysphagia: No. Bloody or black stools: No.no black or bloody stools. Bowel changes: No. Last EGD and/or colonoscopy: recommedned. Globus sensation: resolved Epigastric pain Seeing GI Stopped NSAIDS, on tramadol for headaches: has only had to use a few times. Frontal or left side N+ V with headaches. Component Latest Ref Rng & Units 08/23/2020 12/09/2020 04/20/2021 01/23/2023 WBC 3.70 - 11.00 k/uL 6.25 5.70 RBC 3.90 - 5.20 m/uL 4.80 4.78 Hemoglobin 11.5 - 15.5 g/dL 13.0 10.7 (L) Hematocrit 36.0 - 46.0 % 41.0 35.3 (L) MCV 80.0 - 100.0 fL 85.4 73.8 (L) MCH 26.0 - 34.0 pg 27.1 22.4 (L) MCHC 30.5 - 36.0 g/dL 31.7 30.3 (L) RDW-CV 11.5 - 15.0 % 14.0 18.5 (H) Platelet Count 150 - 400 k/uL 282 297 MPV 9.0 - 12.7 fL 11.7 10.8 Neut% % 56.8 57.1 Abs Neut (ANC) 1.45 - 7.50 k/uL 3.53 3.26 Lymph% % 29.1 29.8 Abs Lymph 1.00 - 4.00 k/uL 1.82 1.70 Glades% % 10.9 10.9 Abs Glades <0.87 k/uL 0.68 0.62 Eosin% % 2.7 1.4 Abs Eosin <0.46 k/uL 0.17 0.08 Baso% % 0.5 0.4 Abs Baso <0.11 k/uL 0.03 <0.03 Immature Gran % % 0.4 IMMATURE GRANS (ABS) <0.10 k/uL <0.03 NRBC /100 WBC 0.0 Absolute nRBC <0.01 k/uL <0.01 <0.01 DTYPE Auto Nucleated Reds 0 /100 WBC 0.0 Diff Type Auto Diff Iron 41 - 186 ug/dL 36 (L) 46 20 (L) 27 (L) TIBC 232 - 386 ug/dL 457 (H) 448 (H) 412 (H) 478 (H) Transferrin Saturation 15.0 - 57.0 % 8 (L) 10 (L) 5 (L) 5.6 (L) Ferritin 14.7 - 205.1 ng/mL 10.3 (L) 7.7 (L) Factor v leiden (hcc) Carrier only, no active thrombosis Palpitations Doing well, hasn't had in a while Other migraine without status migrainosus, not intractable GI stopped all NSAIDS Using Tramadol which works well. HISTORIES FAMILY HISTORY Problem Relation Age of Onset Diabetes Mother Headache Mother Hypertension Mother Heart Father 3 NE's, age 52 Cancer Maternal Grandmother Uterine Blood Disease Brother Leiden factor 5, Blood Disease Other Brother's son, Leiden Factor 5 PAST MEDICAL HISTORY Diagnosis Date Anxiety state, unspecified Blood dyscrasia Carpal tunnel syndrome Factor V Leiden (HCC) Galactorrhea not associated with childbirth 2007 Hiatal hernia 04/13/2003 EGD- [facility] History of 1987,1989,1993 Iron deficiency anemia, unspecified Mental disorder Migraine, unspecified, without mention of intractable migraine without mention of status migrainosus Other pulmonary embolism and infarction 1987 Pulmonary embolism & factor 5 Leiden PAST SURGICAL HISTORY Procedure Laterality Date DELIVERY ONLY 1987,1989,1993 , low transverse EGD 11/24/2020 ESOPHAGOGASTRODUODENOSCOPY TRANSORAL DIAGNOSTIC 04/13/[address] [facility] Dr. Lundy ESOPHAGOGASTRODUODENOSCOPY TRANSORAL DIAGNOSTIC 12/08/2018 EGD HYSTERECTOMY HX 2005 left ovaries INCISE FINGER TENDON SHEATH Left 01/11/2021 Left middle trigger finger release GUERIN W/O FACETEC FORAMOT/DSC 1/2 VRT SGM CRV 2006 Laminectomy, cervical and titianium placed NECK SURGERY HX SKIN BIOPSY HX VAGINAL HYSTERECTOMY Social History Tobacco Use Smoking status: Never Smokeless tobacco: Never Vaping Use Vaping Use: Never used Substance Use Topics Alcohol use: No Drug use: No ACTIVE PROBLEM LIST Hyperlipidemia Palpitations Hiatal Hernia Carpal Tunnel Syndrome Anxiety Migraine Factor V Leiden (Hcc) Sprain and Strain of Unspecified Site of Elbow and Forearm Esophageal Dysphagia Globus Sensation Epigastric Pain Gastroesophageal Reflux Disease Acute Pain of Right Knee Iron Deficiency Anemia Due to Chronic Blood Loss Current Outpatient Medications Medication Sig Dispense Refill traMADol (ULTRAM) 50 mg tablet Take 1 tablet by mouth every 6 hours as needed for pain. 20 tablet 0 pravastatin (PRAVACHOL) 20 mg tablet Take 1 tablet by mouth daily at bedtime. 30 tablet 5 meclizine (ANTIVERT) 12.5 mg tab Take 0.5-1 tablets by mouth every 6 hours as needed (motion sickness). [address] (PROTONIX) 40 mg tablet Take 1 tablet by mouth once daily. 30 tablet 5 FLUoxetine (PROZAC) 20 mg capsule Take 1 capsule by mouth once daily. 30 capsule 5 No current facility-administered medications for this visit. HEPATITIS B(1 of 3 - 3-dose series) Never done HEPATITIS C SCREENING Never done COLORECTAL CANCER SCREENING Never done COVID-19 VACCINE(4 - Booster for Pfizer series) due on 10/10/2021 MAMMOGRAM due on 12/15/2021 DEPRESSION ASSESSMENT Never done REVIEW OF SYMPTOMS: General: denies fatigue, unusual weight loss or gain, fevers, chills. Energy Level: low. Exercise last 3 weeks: jun [place]. If yes, what type: 3 days a week. How often/lon hour. Sleep: hours: 5-6h, wakes tired. Diet: trying to cut down on carbs- very frustrated little progress. Tobacco use: none. Caffeine use: 2 cups a day. ETOH use: occasional, holidays. Marijuana use: none. Illicit drug use: none. Eyes: denies change in vision, glaucoma, cataracts. Reading glasses. Last eye exam: in last year. EENT: denies recurrent sinus infection, unusual nasal drainage, hoarsemess, sore throat, or recurrent sore in mouth or tongue. Cardiovascular: denies chest pain , SOB, palpitation, irregular or racing heart beats, orthopnea, leg swelling, history of rheumatic fever or prior heart conditions Respiratory: denies unusual cough, SOB, wheezing, history of recurrent bronchitis, pneumonia or tuberculosis. Denies day time drowsiness. No complaints of Snoring. No witnessed sleep apnea. GI: denies difficulty swallowing, nausea, vomiting, change in appetite. No change in bowel habits. Denies constipation, diarrhea, rectal bleeding or hemorrhoids, incontinence. No history of GERD, PUD, jaundice/hepatitis, GB disease, diverticulosis, colorectal cancer, hernias. Kidney/Bladder: Denies frequency, burning. Nocturia x 1 , incontinence none. No history of kidney stones, recurrent UTI or kidney infection. Females: Menses none since partial hysterectomy. No hx of ovarian cysts, no pelvic infection, no tubal , No abnormal pap. . Sexually active with spouse, no issues. Skin: denies unusual rashes. No history of skin cancer, bleeding/changing moles, or unusual skin lesions. Neurologic: Denies recurrent MOORE, change in vision, hearing or smell, tremors, unusual weakness, loss of sensation, or difficulty with balance or gait. No history of epilepsy/convulsions, migraine, head/spinal injuries, or stroke/TIA. Psychiatric: denies unusual worry, moodiness, depression, suicidal ideation or unusual disturbance in relationships. No history of psychiatric illness. Endocrine: denies unusual thirst, hunger, excessive urination, change in skin or hair texture, emotional lability. No history of thryoid, pituitary or hormonal problems. Hematologic: denies unusual bleeding, bruising, or history of anemia or blood transfusion. Denies hx blood clots. Infections: denies risk factors for HIV, hepatitis or history of unusual infection. Immunizations are up to date. Musculoskeletal: denies unusual stiffness, muscles aches, joint pain, or swelling. Denies recurrentsprain or disruption of joints, debilitating arthritis, gout, or other musculoskeletal disease. Some pain with left knee: doesn't give out or lock. No hx back injury, spinal stenosis, radiculopathy. EXAM: BP 120/72 Pulse 62 Resp 16 Ht 163 cm (5' 4.17) Wt 75.3 kg (166 lb) SpO2 99% BMI 28.34 kg/m Pleasant overweight in no acute distress. Alert and oriented all spheres. Normal affect and cognition. Speech normal. No deficits to learning or comprehension. Skin warm, dry, pink to lips and nailbeds. Normal turgor. Respirations regular and unlabored. HEENT: NCAT. No scleral icterus or conjunctival injection. TM's clear. Nose and oropharynx free from injection or lesion. Oral membranes moist and pink. No cervical lymph nodes. Thyroid non-tender, no masses, or enlargement. Carotids pulses 2+/4+ without bruits. No JVD with HOB at 30 degrees. Chest is normal shape. Lungs are clear to all armando with good air exchange through out. HRRR without murmur or gallop. No lifts, heaves, or rubs. Abdomen: active bowel sounds throughout, soft, nontender, no masses or organomegaly. No CVAT. Extrem: no clubbing or cyanosis. Edema: none. Extremities are warm and pink with prompt capillary refill. back FROM, no abnormal curvature. Able to touch toes. Able to hold to 10 count with Liam stretch, reverse straight leg. SLR ro 90 degrees. Can do partial sit up without difficulty. FROM upper body with good resistance strength. ASSESSMENT/PLAN: 1. Wellness examination - ICD9: V70.0, ICD10: Z00.00 (primary diagnosis) - Counseled on healthy diet and regular exercise - Calcium intake with supplements or by diet of 1000 mg/day for under 50, 1200- 1500 mg/day for 50+ - Discussed need and benefit for weight loss. BMI 28.34 kg/(m^2) - Mammogram ordered - exam recommended once yearly - Depression screening tool completed and reviewed with patient. Based on score and interview, patient is not at risk for depression and recommended no further intervention at this time. - Follow up for annual exam in one year 2. Hyperlipidemia, unspecified hyperlipidemia type - ICD9: 272.4, ICD10: E78.5 - poor control - Increase dose of atorvastatin (Lipitor) 40 mg - Encouraged following a low fat, low cholesterol diet. - Discussed the benefits of regular aerobic exercise and weight loss. - Encouraged following a low carbohydrate, healthy oil intake diet. 3. Iron deficiency anemia, unspecified iron deficiency anemia type - ICD9: 280.9, ICD10: D50.9 Avoidance NSAIDs stressed Following with GI 4. Dizziness - ICD9: 780.4, ICD10: R42 Resolved 5. Anxiety - ICD9: 300.00, ICD10: F41.9 Stable on medication. Frustrated with weight gain, possible r/t to fluoxatine but wants to continue. 6. Esophageal dysphagia - ICD9: 787.29, ICD10: R13.19 resolved 7. Hiatal hernia - ICD9: 553.3, ICD10: K44.9 Managed well on protonix, continue 8. Globus sensation - ICD9: 784.99, ICD10: R09.89 resolved 9. Epigastric pain - ICD9: 789.06, ICD10: R10.13 - Discussed lifestyle modifications including losing weight, limiting caffeine, no meals three hours before sleep, and head of bed elevation - Continue treatment with Nexium 40 mg QD 10. Factor V Leiden (HCC) - ICD9: 289.81, ICD10: D68.51 Carrier state 11. Palpitations - ICD9: 785.1, ICD10: R00.2 Resolved on betablocker, continue 12. Other migraine without status migrainosus, not intractable - ICD9: 346.80, ICD10: G43.809 Stable, weekly. Tramadol seems to work well. 13. Abnormal result on screening urine test - ICD9: 791.9, ICD10: R82.90 - UA DIP, URINE (POC) - URINALYSIS, WITH MICROSCOPIC - URINE CULTURE 14. Encounter for screening mammogram for malignant neoplasm of breast - ICD9: V76.12, ICD10: Z12.31 - Encouraged monthly BSE - Follow up for annual exam in one year. - ASHLEE SCREENING 15. Special screening examination for viral disease - ICD9: V73.99, ICD10: Z11.59 - HEP C AB IA W/CONF SCRN 16. Encounter for hepatitis C virus screening test for high risk patient - ICD9: V73.89, ICD10: Z11.59, Z91.89 - HEP C AB IA W/CONF SCRN Forms completed noted pending quantiferon. Luis Vital PA-C documented in this encounterSt. Anthony'[facility]03-[facility] History of Present illness Narrative* Pearl Segundo MD - 01/29/2023 4:30 PM EDT Images from the original note were not included. SERVICE DATE: January 29, 2023 CHIEF COMPLAINT: Estuardo Villa is a 52 year old female referred by Amber Lenz, for my opinion regarding the management of anemia. The impression and plan will be communicated back via the EMR or under separate cover letter if necessary. PMH, medications and allergies personally reviewed by me today. Any changes documented in appropriate section.. History was obtained from the patient and from review of the patient's old medical records. HISTORY OF PRESENT ILLNESS: Very pleasant 52-year-old white lady seen for evaluation and managementof iron deficiency anemia. Was seen several years ago for hypercoagulable state. It was felt that no anticoagulation is indicated?!!!. will discuss this further in the assessment and plan More recently she has been noticing increasing fatigue as well as dizziness. She also noticed exertional dyspnea but no chest pain. Her headaches which have a migrainous component have become worse with the anemia. She had iron deficiency anemia in the past secondary to menorrhagia. She underwent partial hysterectomy. She has no family history of colon or gastric CA. She does take nonsteroidal anti-inflammatory medications including ibuprofen and naproxen [id number]. Her intake has increased recently with worsening headaches. She said that acetaminophen bothers her stomach. She also stated she has significant GI intolerance to oral iron supplements. She had EGD in 2020 that revealed erosions and superficial ulcerations very characteristic of effect of medication specially aspirin and or nonsteroidal anti-inflammatory medications Diagnostic Studies: Reviewed PAST MEDICAL HISTORY: PAST MEDICAL HISTORY Diagnosis Date Anxiety state, unspecified Blood dyscrasia Carpal tunnel syndrome Factor V Leiden (HCC) Galactorrhea not associated with childbirth 2007 Hiatal hernia 04/13/2003 EGD- [facility] History of 1987,1989,1993 Iron deficiency anemia, unspecified Mental disorder Migraine, unspecified, without mention of intractable migraine without mention of status migrainosus Other pulmonary embolism and infarction 1987 Pulmonary embolism & factor 5 Leiden PAST SURGICAL HISTORY: PAST SURGICAL HISTORY Procedure Laterality Date DELIVERY ONLY 1987,1989,1993 , low transverse EGD 11/24/2020 ESOPHAGOGASTRODUODENOSCOPY TRANSORAL DIAGNOSTIC 04/13/[address] [facility] Dr. Lundy ESOPHAGOGASTRODUODENOSCOPY TRANSORAL DIAGNOSTIC 12/08/2018 EGD HYSTERECTOMY HX 2005 left ovaries INCISE FINGER TENDON SHEATH Left 01/11/2021 Left middle trigger finger release GUERIN W/O FACETEC FORAMOT/DSC 1/2 VRT SGM CRV 2006 Laminectomy, cervical and titianium placed NECK SURGERY HX SKIN BIOPSY HX VAGINAL HYSTERECTOMY CURRENT MEDICATIONS: pravastatin (PRAVACHOL) 20 mg tablet Take 1 tablet by mouth daily at bedtime. meclizine (ANTIVERT) 12.5 mg tab Take 0.5-1 tablets by mouth every 6 hours as needed (motion sickness). pantoprazole DR (PROTONIX) 40 mg tablet Take 1 tablet by mouth once daily. FLUoxetine (PROZAC) 20 mg capsule Take 1 capsule by mouth once daily. traMADol (ULTRAM) 50 mg tablet Take 1 tablet by mouth every 6 hours as needed for pain. ALLERGIES/INTOLERANCES: ALLERGIES Allergen Reactions Aleve [Naproxen Sod* GI Upset Bactrim [Sulfametho* Intolerance dizziness and upset stomach Latex Rash Lipitor [Atorvastat* Intolerance Elevated Liver enzymes Penicillins Unknown Tape [Adhesive Tape* Rash Tylenol [Acetaminop* Other: See Comments Nausea Vicodin [Hydrocodon* Vomiting FAMILY HISTORY: FAMILY HISTORY Problem Relation Age of Onset Diabetes Mother Headache Mother Hypertension Mother Heart Father 3 NE's, age 52 Cancer Maternal Grandmother Uterine Blood Disease Brother Leiden factor 5, Blood Disease Other Brother's son, Leiden Factor 5 SOCIAL HISTORY: Social History Tobacco Use Smoking status: Never Smokeless tobacco: Never Vaping Use Vaping Use: Never used Substance Use Topics Alcohol use: No Drug use: No ROS: Fatigue with minimal activities. Progressively worse over the last month or so. Dizziness as well as exertional dyspnea from walking 1 block. No orthopnea paroxysmal nocturnal dyspnea or chest pain. Increasing headaches with a migrainous component Symptoms of acid reflux that subsided with PPI intake previously Nexium and currently Protonix PHYSICAL EXAM: BP 124/73 Pulse 60 Temp 36.7 C (98 F) (Temporal) Ht 162.6 cm (5' 4) Wt 74.4 kg (164 lb) BMI 28.15 kg/m2 Body mass index is 28.15 kg/m . ECO No abnormalities on physical exam DATA REVIEW: I personally reviewed the patient's data and medical records. PERTINENT LABS: Reviewed PERTINENT IMAGING: Reviewed ASSESSMENT AND Plan Iron deficiency anemia with microcytosis and elevated RDW as well as very low level of ferritin. Most likely if not definitely secondary to intake of nonsteroidal anti-inflammatory medications. Nevertheless would recommend colonoscopy since has not had one in years. I told her to stop intake of those medications. We will give her a prescription of 20 tablets of tramadol to try. If effective will prescribe more. Another good option is Fioricet but since it has acetaminophen and she stated that it upsets her stomach we will try tramadol first Because of her symptoms and GI intolerance to oral iron supplements we will schedule her BELÉN for infusional iron. She gives symptoms highly suggestive of celiac disease or at least gluten sensitivity so we will check a celiac disease panel Of much more importance is her positive heterozygous state of mutant factor V and documented history of thromboembolic disease special pulmonary emboli. To me it is an automatic indication for lifetime anticoagulation. We will elaborate on this more after we correct her anemia and obviously ensure that what ever erosions or superficial ulcerations she has have completely healed The patient was able to ask questions and these were answered in detail. Thank you for the opportunity of participating in the care of this delightful lady. Pearl Segundo MD cc: Amber Mcdonald MD documented in this encounterSt. [facility]03-[facility]23 Miscellaneous Notes* Telephone Encounter - Geena Woodward - 01/28/2023 8:38 AM EDT Spoke with patient and scheduled for 01/29/23. Geena Woodward * Telephone Encounter - Hillary Escamilla LPN - 01/28/2023 7:40 AM EDT Please schedule for new pt. Appt. With Dr. Segundo. Hillary Escamilla LPN * Telephone Encounter - Ruben Ospina LPN - 01/25/2023 4:41 PM EDT Pt notified. She verbalized understanding. Note routed to hem/onc pool for review of chart and appt. Ruben Ospina LPN * Telephone Encounter - Amber Lenz APRN.MAN - 01/25/2023 4:34 PM EDT I sent a new script for the pravastatin to the pharmacy, as it appears that she may be out of refills. Why don't we also have her see hematology for evaluation of the anemia and see if she should have an iron infusion.The referral is placed. Amber Lenz APRN.MAN * Telephone Encounter - Elizabeth Mosquera RN - 01/25/2023 4:25 PM EDT Patient calls and notified of results and providers instructions. Patient verbalizes understanding. Patient reports that in the past oral iron caused gi upset which she already has trouble with and takes Protonix for. Patient reports that she has been taking the pravastatin as ordered. Please review and advise, Elizabeth Mosquera RN * Telephone Encounter - Ruben Ospina LPN - 01/25/2023 4:15 PM EDT Left message to return call to office. Ruben Ospina LPN * Telephone Encounter - Amber Lenz APRN.CNP - 01/25/2023 3:58 PM EDT Can please let patient know that I received her lab results. She is anemic and appears related to being iron deficient. Is she able to tolerate oral iron? Her cholesterol was also very elevated. Has she been taking the pravastatin? Please let me know? documented in this encounterSt. [facility]01-27-[facility] History of Present illness Narrative* Ranjit Murguia PT - 12/07/2022 3:42 PM EST Episode Visit Count: 1 Therapist That Will Accept/Oversee The Plan Of Care: Ranjit Murguia Start of Care Date: 12/04/22 Onset Date: 11/29/22 Plan of Care Certification Date: 12/04/22 Next Certification Due Date: 02/01/23 Patient Identified by Name and Date of : Yes REHABILITATION AND SPORTS THERAPY PHYSICAL THERAPY EVALUATION PLAN OF CARE: Assessment: Estuardo Villa presents with chief complaint of acute right knee pain that interferes with rising from a chair, standing, walking, stair negotiation, bending, heavy exertion, physical activities, recreational activities, kneeling, squatting, working . She presents with impairments in ADL's, gait, independence in exercise, overall function, range of motion, strength , and symptom manageme nt. Prognosis for therapy is Fair due to: clinical presentation, limited tolerance to activity, occupational demands . She will benefit from skilled therapy services to meet the goals established forthis plan of care as noted below. Goals for Episode of Care: created on 12/04/22 through 02/01/23 [place] in home exercise program. Patient will decrease pain rating by 2 points to meet minimal clinical important difference for numeric pain rating scale. Patient will increase active ROM of R knee to within 5 degrees of the L to allow pt to to improve postural alignment, to improve performance of ADLs, and to improve gait mechanics / gait pattern . Patient will demonstrate increase in RLE strength to 5/5 during manual muscle testing in order to improve function for basic self-care tasks, home management tasks, leisure / recreation skills, lightfunctional tasks, moderate to heavy functional tasks, prior functional tasks, and work tasks. Perform standing, walking, work tasks with decreased report of symptoms/pain in 6-8 weeks. Perform ADLs and self care without pain. Normal gait. Reciprocal stair negotiation. Planned Interventions, Frequency, and Duration: Current Frequency: 1x/week Duration: 8 weeks Total Number of Visits Planned: 8 Planned Treatment Interventions: Therapeutic exercise (86219), Neuromuscular re- education (82106), Manual therapy (63507), Therapeutic activities (44415), Self- snf management (11155), Gait Training (38352), Patient/Family/Caregiver Education, Body Mechanics Training PLAN FOR NEXT VISIT: Assess carry over of HEP, may try bike or scifit per symptoms Patient demonstrates good understanding of plan of care and treatment. The above goals and plan of care were discussed and agreed upon by patient/family. SUBJECTIVE: Estuardo Villa is a 52 year old female seen today for Pt here for severe knee pain x5 days. Pt was jogging on a treadmill and felt pain. After she stopped and in the next days her pain significantly increased. she is limping badly today. Anything weight bearing flares her up, while rest helps temporarily. Pt on temporary leave from work due to the pain. She stands for 12 hours a day Functional Limitations: rising from a chair, standing, walking, stair negotiation, bending, heavy exertion, physical activities, recreational activities, kneeling, squatting, working Prior Level of Function: Independent without limitations Intake Information: Prescription present Pain: Pain Pain Level: 9 Pain Location: Knee - Right Description: Sharp, Radiating Frequency: Intermittent, Walking Post Treatment Pain Post Treatment Pain Level: No Change PROMIS Scales Higher is Better 12/12/2020 04/21/2021 GH Physical - Score 42.3 50.8 (Very Good) GH Physical - Percentile 22 % 53 % GH Mental - Score 28.4 31.3 (Fair) GH Mental - Percentile 2 % 3 % T-scores: mean of general population = 50. 5 points is clinically meaningfully difference Percentiles provide an indication of how the patient's score ranks in relation to the general population. Higher percentile rankings indicate better function/quality of life. 50th percentile is the average of the general population and indicates half of respondents had a worse score. T-scores: mean of general population = 50. 5 points is clinically meaningfully difference Percentiles provide an indication of how the patient's score ranks in relation to the general population. Higher percentile rankings indicate better function/quality of life. 50th percentile is the average of the general population and indicates half of respondents had a worse score. OBJECTIVE MEASURES WITH LEVEL OF FUNCTION: Knee Observations R Knee Palpation Tenderness: Medial joint line LE AROM R Knee Extension: 3 Degrees R Knee Flexion: 123 Degrees L Knee Extension: 7 Degrees L Knee Flexion: 143 Degrees LE Strength R LE Strength: 4-/5 grossly with pain in knee extension, hip IR/ER L LE Strength: 5/5 grossly Special Tests - Knee Knee Special Tests: Anterior Drawer, Dillon, Denia's Test, Posterior Shift, Thessaly's Test, Valgus stress at 0 degrees, Valgus stress at 30 degrees, Varus stress at 0 degrees, Varus stress at 30degrees Anterior Drawer: Right Negative Dillon: Right Negative Denia's Test: Right Positive Posterior Shift: Right Negative Thessaly's Test: Thessaly's Test (5 degrees flexion), Thessaly's Test (20 degrees flexion) (not tested due to pt's pain today) Valgus stress at 0 degrees: Right Negative Valgus stress at 30 degrees: Right Negative Varus stress at 0 degrees: Right Negative Varus stress at 30 degrees: Right Negative Education: Education Learning/educational needs: Home exercise program, Plan of Care, Changes in Plan of Care, Body Mechanics, Gait Training TREATMENT: PT Treatment Interventions: Therapeutic Exercise Evaluation Therapeutic Exercise: 1: *Quad sets 3x10, 5 sec holds 2: *Heel slides 3x10, 5 sec holds 3: *Patellar mobs in all 4 directions 3x10 4: *SLR 3x10 5: *SL hip abduction 3x10 Skilled Intervention: Patient was educated in proper exercise technique and purpose for exercises. Skilled judgment was provided in selection of appropriate interventions. Provided written instruction for home exercise program to facilitate proper performance and compliance. Correct performance of therapeutic exercises was facilitated with verbal, visual, and tactile cuing. Billing * Evaluation Low Complexity: 1 Unit Therapeutic Exercise Treatment Minutes: 15 Total Treatment Time Minutes (timed/untimed): 35 Ranjit Murguia PT documented in this encounterSt. Anthony'S Hospital01-23-2023 Instructions* Patient Instructions* Amber Lenz APRN.CNP - 12/03/2022 2:09 PM EST Rest, ice, compression, elevation. Start the prednisone. The prednisone taper will be 4 tablets for 3 days; 3 tablets for 3 days; 2 tablets for 3 days; then1 tablet for 3 days. Please do no use other anti-inflammatories (like ibuprofen, aleve, naproxen, etc) while you are on this medication. 3. Schedule w/ physical therapy. 4. Let me know if no improvement/worsening. documented in this encounterSt. Anthony'S Hospital01-23-2023 History of Present illness Narrative* Amber Lenz APRN.CNP - 12/03/2022 1:48 PM EST This is a 52 year old female who presents today with: Patient presents with: Right Knee Pain HISTORY OF PRESENT ILLNESS: Estuardo Villa is a 52 year old female. Patient presents with: Right Knee Pain Pt presents today for ER follow-up. Went to the ER yesterday with right knee pain. Started 4 days ago. Refers she was at the gym when she first started noticing pain. Describes pain in the medial aspect of the knee. Propping, heat/cold, Taking ibuprofen, but doesn't try to often d/t bad stomach. Refers 400 mg -- twice daily. No popping/cracking. Will feel like its bruised when she touches it. Sometimes will have to hold her breath d/t the pain. Not giving out on her. PAST MEDICAL HISTORY: PAST MEDICAL HISTORY Diagnosis Date Anxiety state, unspecified Blood dyscrasia Carpal tunnel syndrome Factor V Leiden (HCC) Galactorrhea not associated with childbirth 2006 Hiatal hernia 04/13/2003 EGD- [place] History of 1987,1989,1993 Iron deficiency anemia, unspecified Mental disorder Migraine, unspecified, without mention of intractable migraine without mention of status migrainosus Other pulmonary embolism and infarction 1987 Pulmonary embolism & factor 5 Leiden PAST SURGICAL HISTORY Procedure Laterality Date DELIVERY ONLY 1987,1989,1993 , low transverse EGD 11/24/2020 ESOPHAGOGASTRODUODENOSCOPY TRANSORAL DIAGNOSTIC 04/13/[address] [facility] Dr. Lundy ESOPHAGOGASTRODUODENOSCOPY TRANSORAL DIAGNOSTIC 12/08/2018 EGD HYSTERECTOMY HX 2005 left ovaries INCISE FINGER TENDON SHEATH Left 01/11/2021 Left middle trigger finger release GUERIN W/O FACETEC FORAMOT/DSC 1/2 VRT SGM CRV 2006 Laminectomy, cervical and titianium placed NECK SURGERY HX SKIN BIOPSY HX VAGINAL HYSTERECTOMY ALLERGIES Aleve [Naproxen Sodium], Bactrim [Sulfamethoxazole], Latex, Lipitor [Atorvastatin Calcium], Penicillins, Tape [Adhesive Tape (Rosins)], Tylenol [Acetaminophen], and Vicodin [Hydrocodone-Acetaminophen] MEDICATIONS Current Outpatient Medications Medication Sig pantoprazole DR (PROTONIX) 40 mg tablet Take 1 tablet by mouth once daily. promethazine (PHENERGAN) 50 mg tab(s) Take 50 mg by mouth once daily. FLUoxetine (PROZAC) 20 mg capsule Take 1 capsule by mouth once daily. pravastatin (PRAVACHOL) 20 mg tablet Take 1 tablet by mouth daily at bedtime. No current facility-administered medications for this visit. FAMILY HISTORY Problem Relation Age of Onset Diabetes Mother Headache Mother Hypertension Mother Heart Father 3 NE's, age 52 Cancer Maternal Grandmother Uterine Blood Disease Brother Leiden factor 5, Blood Disease Other Brother's son, Leiden Factor 5 Social History Tobacco Use Smoking status: Never Smokeless tobacco: Never Vaping Use Vaping Use: Never used Substance Use Topics Alcohol use: No Drug use: No EXAM: BP 160/100 Pulse 67 Resp 18 SpO2 97% PHYSICAL EXAM: General Appearance: Well appearing, alert, in no acute distress, well-hydrated, well nourished.. Skin: Skin color, texture, turgor normal, no suspicious rashes or lesions. Head: Normocephalic, no masses, lesions, tenderness or abnormalities. Extremities: No deformities, edema, skin discoloration, clubbing or cyanosis. Good capillary refill. . Neurologic: Gait with limp. Lower extremities equal or nearly equal in bulk and tone. No redness or increased warmth. No axial deformity. No evidence of swelling or ballottable effusion in either knee. + tenderness to the medical joint line. ROM guarded with limited flexion/extension. Negative bounce test. No pain or laxity with varus or valgus stress. Anterior drawer, Dillon, and Denia test all negative. ASSESSMENT/PLAN: 1. Acute pain of right knee - ICD9: 719.46, ICD10: M25.561 Will go ahead and start prednisone taper. The prednisone taper will be 4 tablets for 3 days; 3 tablets for 3 days; 2 tablets for 3 days; then1 tablet for 3 days. Please do no use other anti-inflammatories (like ibuprofen, aleve, naproxen, etc) while you are on this medication. Tramadol for breakthrough pain. Start PT. Discussed compression/ice/propping, as well. - PREDNISONE 10 MG TABLET - TRAMADOL 50 MG TABLET - CONSULT TO PHYSICAL THERAPY Discussed treatment plan and patient voices understanding. Patient's questions answered appropriately. Medications and potential side effects were discussed and patient voices understanding. Return to the office as scheduled or as needed for worsening/no improvement. Amber Lenz APRN.DATER ASSEMBLER This note was partially generated using Wav[employer] recognition system. Note was reviewed for accuracy. There may be minor misspellings or grammar miscues with Gig[employer] voice recognition. documented in this encounterSt. Anthony'S Hospital01-23-2023 Miscellaneous Notes* Telephone Encounter - Agnieszka Klein Krunal - 12/03/2022 10:30 AM EST Patient phones requesting refills as follows: Requested Prescriptions Pending Prescriptions Disp Refills pantoprazole DR (PROTONIX) 40 mg tablet 30 tablet 5 Sig: Take 1 tablet by mouth once daily. Agnieszka Klein ROLLER PRINTER documented in this encounterSt. Anthony'S Hospital01-17-2023 Instructions* Patient Instructions* Eva Morton PA-C - 11/27/2022 9:21 AM EST Images from the original note were not included. Vitamin D at least 2000 internal units daily, calcium 1000 mg daily Bowel Preparation Instructions for: Miralax-Gatorade Preparations IF YOU DO NOT FOLLOW THESE DIRECTIONS, YOUR COLONOSCOPY WILL BE CANCELLED. Duncan Instructions: Your bowel must be empty so that your doctor can clearly view your colon. Follow all of the instructions in this handout EXACTLY as they are written. Do NOT eat any solid food the ENTIRE day before your colonoscopy. Buy your bowel preparation at least 5 days before your colonoscopy. Four (4) Dulcolax laxative tablets containing 5mg of bisacodyl each (NOT Dulcolax stool softener) One (1) 8.3oz. bottle Miralax (238 grams) or generic equivalent 2 x 32oz. Bottles of Gatorade (NOT RED) Diabetic Patients: Use G2 (Gatorade 2) TRANSPORTATION on the Day of Your Exam A responsible adult MUST be present with you at Check In prior to your colonoscopy and REMAIN in the endoscopy area until you are discharged. You are NOT ALLOWED to drive, take a taxi or bus, or leave the Endoscopy Center ALONE. If you do not have a responsible funeral driver (family member or friend) withyou to take you home, your exam cannot be done with sedation and will be cancelled. Please bring a list of all of your current medications, including any [id number] medications with you. Medications If you take insulin, diabetic medications or blood thinners such as Coumadin (warfarin), Plavix (clopidogrel), Ticlid (ticlopidine hydrochloride), Agrylin (anagrelide), Xarelto (Rivaroxaban), Pradaxa(Dabigatran), Eliquis (Apixaban), and Effient (Prasugrel). You MUST call the doctors who orders those medicines for instructions on altering the dosage before your colonoscopy. All other medications should be taken the day of the exam with a sip of water including ASPIRIN. Five (5) Days Before Your Colonoscopy Do NOT take medicines that stop diarrhea - such as Imodium, Kaopectate, or Pepto Bismol. Do NOT take fiber supplements - such as Metamucil, Citrucel, or Perdiem. Do NOT take products that contain iron - such as multi-vitamins (the label lists what is in the products). Three (3) Days Before Your Colonoscopy Do NOT eat high-fiber foods - such as popcorn, beans, seeds (flax, sunflower, quinoa), multigrain bread, nuts, salad/vegetables, or fresh and dried fruit. 1 Bowel Preparation Instructions for: Miralax-Gatorade Preparations One (1) Day Before Your Colonoscopy Only drink clear liquids the ENTIRE DAY before your colonoscopy. Do NOT eat any solid foods. Drink at least 8 ounces of clear liquids every hour after waking up. The clear liquids you can drink include: Clear Liquid (NO RED LIQUIDS) DO NOT DRINK Gatorade, Pedialyte or Powerade Clear broth or bouillon Coffee or tea (no milk or non-dairy creamer) Carbonated and non-carbonated soft drinks Sky-Aid or other fruit flavored drinks Strained fruit juices (no pulp) Jell-O, popsicles, hard candy Water Alcohol Milk or non-dairy creamers Noodles or vegetables in soup Juice with pulp Liquid you cannot see through Do not use tobacco/vaping products Mix 1/2 of Miralax bottle (119 grams) in each 32 ounces of Gatorade bottle until dissolved. Keep cool in the refrigerator. DO NOT ADD ICE. The bowel preparation solution will be consumed in two parts. Part 1 5:00 PM - Evening before your colonoscopy Take 4 Dulcolax tablets. 6 PM - Evening before your colonoscopy Drink 32 oz. of the mixed solution. Drink an 8 oz. glass of bowel preparation every 15 minutes for a total of 4 glasses. Fifteen (15) minutes later, drink an 8 oz. glass of of clear liquids every 15 minutes for a total of 2 glasses. You may continue to drink clear liquids till midnight. Part 2 On the day of your colonoscopy you may drink clear liquids up to (three) 3 hours prior to procedure. 4 1/2 hours before your colonoscopy Take another 32 oz. bottle of mixed solution. Drink an 8 oz. glass of bowel prep every 15 minutes for a total of 4 glasses. Fifteen (15) minutes later, drink an 8 oz. glass of clear liquids every 15 minutes for a total of 2glasses. You may continue to drink clear liquids up to (three) 3 hours before your exam. 2 10/2019 documented in this encounterSt. Anthony'S Hospital01-17-2023 History of Present illness Narrative* Eva Morton PA-C - 11/27/2022 8:57 AM EST CHIEF COMPLAINT: Patient presents with: GERD: [facility] patient- [facility]- refills needed HPI Estuardo Villa is a 52 year old female here today for GERD (Aida patient- [facility]- refills needed ). Seen last by Aida Villasenor for GERD, negative for Mejia's, H. Pylori. Changed from Protonix to Nexium, Pepcid daily last OV, was not covered by insurance so changed back to Protonix. Denies changes in bowel habits. HIDA 2020 negative OV 01/2022 Aida Villasenor EGD 11/24/2020Impression: - Normal examined jejunum. - Normal examined duodenum. - Gastritis. Biopsied. - Medium-sized hiatal hernia. - Non-severe reflux esophagitis. Biopsied. - Normal middle third of esophagus. Biopsied. FINAL DIAGNOSIS 1. Stomach, antrum, biopsy (A) Gastric antral mucosa with chronic inactive gastritis. - An immunohistochemical stain for Helicobacter pylori organisms has been ordered and will be reported in an addendum. negative for Helicobacter pylori organisms. 2. Esophagus, distal, biopsy (B) Inflamed squamous and cardiac-type mucosa consistent with gastroesophageal reflux injury; negative for intestinal metaplasia. 3. Esophagus, mid, biopsy (C) Squamous mucosa with no diagnostic Abnormality. Current Outpatient Medications Medication Sig promethazine (PHENERGAN) 50 mg tab(s) Take 1 tablet by mouth every 6 hours as needed. FLUoxetine (PROZAC) 20 mg capsule Take 1 capsule by mouth once daily. pantoprazole DR (PROTONIX) 40 mg tablet Take 1 tablet by mouth once daily. pravastatin (PRAVACHOL) 20 mg tablet Take 1 tablet by mouth daily at bedtime. No current facility-administered medications for this visit. ALLERGIES Allergen Reactions Aleve [Naproxen Sod* GI Upset Bactrim [Sulfametho* Intolerance dizziness and upset stomach Latex Rash Lipitor [Atorvastat* Intolerance Elevated Liver enzymes Penicillins Unknown Tape [Adhesive Tape* Rash Tylenol [Acetaminop* Other: See Comments Nausea Vicodin [Hydrocodon* Vomiting Social History Tobacco Use Smoking status: Never Smokeless tobacco: Never Vaping Use Vaping Use: Never used Substance Use Topics Alcohol use: No Drug use: No PAST MEDICAL HISTORY Diagnosis Date Anxiety state, unspecified Blood dyscrasia Carpal tunnel syndrome Factor V Leiden (HCC) Galactorrhea not associated with childbirth 2006 Hiatal hernia 04/13/2003 GONZALESD- [place] History of 1987,1989,1993 Iron deficiency anemia, unspecified Mental disorder Migraine, unspecified, without mention of intractable migraine without mention of status migrainosus Other pulmonary embolism and infarction 1987 Pulmonary embolism & factor 5 Leiden PAST SURGICAL HISTORY Procedure Laterality Date DELIVERY ONLY 1987,1989,1993 , low transverse EGD 11/24/2020 ESOPHAGOGASTRODUODENOSCOPY TRANSORAL DIAGNOSTIC 04/13/[address] [facility] Dr. Lundy ESOPHAGOGASTRODUODENOSCOPY TRANSORAL DIAGNOSTIC 12/08/2018 EGD HYSTERECTOMY HX 2005 left ovaries INCISE FINGER TENDON SHEATH Left 01/11/2021 Left middle trigger finger release GUERIN W/O FACETEC FORAMOT/DSC 1/2 VRT SGM CRV 2006 Laminectomy, cervical and titianium placed NECK SURGERY HX SKIN BIOPSY HX VAGINAL HYSTERECTOMY FAMILY HISTORY Problem Relation Age of Onset Diabetes Mother Headache Mother Hypertension Mother Heart Father 3 NE's, age 52 Cancer Maternal Grandmother Uterine Blood Disease Brother Leiden factor 5, Blood Disease Other Brother's son, Leiden Factor 5 REVIEW OF SYSTEMS Review of Systems All other systems reviewed and are negative. PHYSICAL EXAM BP 122/72 Pulse 89 Ht 5' 4.5 (1.64m) Wt 172 lb 4.8 oz (78.2kg) BMI 29.13 kg/(m^2). Physical Exam Constitutional: General: She is not in acute distress. Appearance: Normal appearance. She is normal weight. She is not ill-appearing, toxic-appearing or diaphoretic. HENT: Head: Normocephalic and atraumatic. Nose: Nose normal. Eyes: General: No scleral icterus. Right eye: No discharge. Left eye: No discharge. Extraocular Movements: Extraocular movements intact. Conjunctiva/sclera: Conjunctivae normal. Pupils: Pupils are equal, round, and reactive to light. Cardiovascular: Rate and Rhythm: Normal rate and regular rhythm. Pulses: Normal pulses. Heart sounds: Normal heart sounds. No murmur heard. No friction rub. No gallop. Pulmonary: Effort: No respiratory distress. Breath sounds: Normal breath sounds. No stridor. No wheezing, rhonchi or rales. Chest: Chest wall: No tenderness. Abdominal: General: Abdomen is flat. Bowel sounds are normal. There is no distension. Palpations: Abdomen is soft. There is no mass. Tenderness: There is no abdominal tenderness. There is no right CVA tenderness, left CVA tenderness, guarding or rebound. Hernia: No hernia is present. Musculoskeletal: General: Normal range of motion. Cervical back: Normal range of motion and neck supple. Skin: General: Skin is warm and dry. Neurological: General: No focal deficit present. Mental Status: She is alert and oriented to person, place, and time. Psychiatric: Mood and Affect: Mood normal. Behavior: Behavior normal. Assessment/Plan (K44.9, K21.00) Hiatal hernia with GERD and esophagitis (primary encounter diagnosis) (R11.0) Chronic nausea (Z12.11) Screening for colon cancer (R10.13) Dyspepsia (R11.0) Nausea 1. Hiatal hernia with GERD and esophagitis - Protonix 40 mg daily working well for her GERD - Follow reflux precautions - Avoid NSAIDs 2. Chronic nausea - NM GASTRIC EMPTYING SOLID; Future - Taking phenergan daily chronically, states she cannot function/drink water without medication - HIDA negative 2020 - Advised GES to r/o gastroparesis 3. Screening for colon cancer - COLONOSCOPY SCREENING; Future I spent a total of 15 minutes on the date of the service which included preparing to see the patient, [id number] patient care, completing clinical documentation, obtaining and/or reviewing separately obtained history, performing a medically appropriate examination, counseling and educating the pat ient/family/caregiver, ordering medications, tests, or procedures, communicating with other HCPs (not separately reported), independently interpreting results (not separately reported), communicatingresults to the patient/family/caregiver, and care coordination (not separately reported). Eva Morton PA-C November 27, 2022 9:29 AM documented in this encounterSt. Anthony'S Hospital12-07-2022 Miscellaneous Notes* Telephone Encounter - Raven Barone Pss - 10/17/2022 10:07 AM EST Patient has been identified by name and date of : Yes Last office visit in this department: 04/21/2021 RX INSTRUCTIONS: Aida Villasenor no longer with [facility] in [place]. Patient aware RX will be sent to pharmacy. No need to notify patient. Patient phones requesting refills as follows: Requested Prescriptions Pending Prescriptions Disp Refills promethazine (PHENERGAN) 50 mg tab(s) 60 tablet 3 Sig: Take 1 tablet by mouth every 6 hours as needed. Please review and advise. Raven Barone Pss documented in this encounterSt. Anthony'S Hospital09-28-2022 Miscellaneous Notes* Telephone Encounter - Serena Hitchcock LPN - 08/08/2022 4:04 PM EDT Response is no PA is needed. * Telephone Encounter - Serena Hitchcock LPN - 08/08/2022 3:54 PM EDT Electronic PA completed for fluoxetine documented in this encounterCleveland [id number] Miscellaneous Notes* Telephone Encounter - Carla Stout - 08/07/2022 1:39 PM EDT Patient has been identified by name and date of : Yes Requested Prescriptions Pending Prescriptions Disp Refills FLUoxetine (PROZAC) 20 mg capsule 30 capsule 5 Sig: Take 1 capsule by mouth once daily. RX INSTRUCTIONS: Patient aware RX will be sent to pharmacy. No need to notify patient. Carla Stout documented in this encounterSt. Anthony'S Hospital08-01-2022 Miscellaneous Notes* Telephone Encounter - Aida Villasenor APRN.CNP - 06/11/2022 1:22 PM EDT Done Aida Villasenor APRN.CNP * Telephone Encounter - Elizabeth Mosquera RN - 06/11/2022 11:33 AM EDT Patient calls to report that she needs a refill of medication for stomach. Patient reports that theomeprazole 40 mg is not helping with any of her symptoms of GERD. Patient asking if Protonix could be started again? Pharmacy is [facility]. Please review and advise, Elizabeth Mosquera RN documented in this encounterSt. Anthony'S Hospital03-24-2022 Miscellaneous Notes* Telephone Encounter - Amanda Lara LPN - 02/01/2022 4:38 PM EDT Patient notified * Telephone Encounter - Aida Villasenor APRN.CNP - 02/01/2022 11:14 AM EDT Done Aida Villasenor APRN.CNP * Telephone Encounter - Sultana Willis RN - 01/31/2022 11:46 AM EDT Patient states she called in a couple days ago requesting Phenergan for nausea from Aida Villasenor, lashaydid not specify pill or syrup and a script for the syrup was sent to her pharmacy. She is requesting the Phenergan syrup script be canceled and the pill form of Phenergan be sent. Thank you. documented in this encounterSt. Anthony'S Hospital03-24-2022 Miscellaneous Notes* Telephone Encounter - Amanda Lara LPN - 02/01/2022 2:22 PM EDT PATIENT NOTIFIED OF SAME. * Telephone Encounter - Aida Villasenor APRN.CNP - 02/01/2022 12:04 PM EDT I placed a order for omeprazole 40mg sent into [facility] Thanks Aida Villasenor APRN.CNP * Telephone Encounter - Amanda Lara LPN - 02/01/2022 8:37 AM EDT Prior authorization for Nexium was denied. Response noted is that patient would have had tried and failed on preferred drug: lansoprazole, nexium oral packets, or omeprazole. documented in this encounterSt. Anthony'S Hospital03-22-2022 Miscellaneous Notes* Telephone Encounter - Elizabeth Mosquera RN - 01/30/2022 10:19 AM EDT Patient calls in to check on status of refill request. Patient asking to please send prescription for phenergan. She has to work today and is in need of some nausea relief. Please review and advise, Elizabeth Mosquera RN * Telephone Encounter - Sharon Tobias LPN - 01/29/2022 2:26 PM EDT Pt called back and the Phenergan was not called in. She is requesting Phenergan for her nausea. Patient has been identified by name and date of : Yes Patient phones for refill(s): Pending Prescriptions Disp Refills PROMETHAZINE-DM 6.25 MG-15 MG/5 ML ORAL SYRUP 240 mL 0 Sig: Take 5 mL by mouth four times daily as needed for cough. LOLLY: No Date of last office visit in primary care: 01/29/22 Last 2 Encounter Wt Readings: Date: Wt: 01/29/2022 69.9 kg (154 lb) 11/29/2021 71.3 kg (157 lb 3.2 oz) Previous labs/tests for medication: Not applicable Please advise. Thank you. Sharon Tobias LPN * Telephone Encounter - Luis Jade RN - 01/29/2022 2:12 PM EDT Patient reports pharmacy did not receive the Rx's for nexium (appears on med list as request for PA), and pepcid (pharmacy received it). Patient asking provider to either do PA on nexium or prescribesomething else, as she only has a week left on her protonix. Please advise patient. documented in this encounterSt. Anthony'S Hospital03-21-2022 Miscellaneous Notes* Telephone Encounter - Ana Ngo Ma - 01/29/2022 1:23 PM EDT Last office visit: 05/25/21 F/u scheduled: none Ana Ngo Ma * Telephone Encounter - Estefany Magallon - 01/29/2022 11:12 AM EDT Patient has been identified by name and date of : Yes Pending Prescriptions Disp Refills FLUOXETINE 20 MG CAPSULE 30 capsule 5 Sig: Take 1 capsule by mouth once daily. LOLLY: No RX INSTRUCTIONS: Patient aware RX will be sent to pharmacy. No need to notify patient. Estefany Goss Pss documented in this encounterSt. Anthony'S Hospital03-21-2022 Instructions* Patient Instructions* Aida Villasenor APRN.CNP - 01/29/2022 11:52 AM EDT STOP PANTOPRAZOLE Start NEXIUM 40MG - TAKE ON EMPTY STOMACH CONTINUE CARAFATE DISSOLVED IN WATER TWICE DAILY PEPCID 20MG AT BEDTIME Avoid NSAIDs (such as Advil, Ibuprofen, Excedrin, Mobic), tobacco, alcohol, carbonated beverages, caffeine, chocolate, tomato based sauces, spicy/fatty foods, and peppermint Avoid eating large meals. Avoid eating less than 3 hours before bed. Weight loss. Elevate the head of the bed 6 inches, or at least invest in a wedge pillow. Follow up 2 months documented in this encounterSt. Anthony'S Hospital03-21-2022 History of Present illness Narrative* Aida Villasenor APRN.CNP - 01/29/2022 11:30 AM EDT CHIEF COMPLAINT: Patient presents with: Medication Follow-up: needs refill of phenergan. Symptoms are all the same as before. Is still having burning in mid upper abdomen and taking Tums on daily. Abdominal Pain: with pressure mid upper abdomen EGD 11/24/2020Impression: - Normal examined jejunum. - Normal examined duodenum. - Gastritis. Biopsied. - Medium-sized hiatal hernia. - Non-severe reflux esophagitis. Biopsied. - Normal middle third of esophagus. Biopsied. FINAL DIAGNOSIS 1. Stomach, antrum, biopsy (A) Gastric antral mucosa with chronic inactive gastritis. - An immunohistochemical stain for Helicobacter pylori organisms has been ordered and will be reported in an addendum. negative for Helicobacter pylori organisms. 2. Esophagus, distal, biopsy (B) Inflamed squamous and cardiac-type mucosa consistent with gastroesophageal reflux injury; negative for intestinal metaplasia. 3. Esophagus, mid, biopsy (C) Squamous mucosa with no diagnostic Abnormality. NIEVES Villa is a 51 year old female here today for reports worsening bloating abdominal pain and burning in her stomach at night She reports she is under a lot of stress at home. She reports she is having daily MOORE and taking Advil 400mg once daily. She reports Tylenol makes her stomach upset. Wakes up and feels nauseated once she starts to do any thing active. She reports not eating after 4pm Drinks 2 cups of coffee in the morning if she can handle it. She reports sleeping on each side - denies laying flat. She reports at night her symptoms are worse at night. She reports a pressure in her stomach at all times. She reports burning sensation in her stomach at night and that's when she will take a 2 TUMs which will help with symptoms. She reports her daily is pantoprazole 40mg in the morning daily, carafate daily in morning dissolved - and tums as needed. Last OV 04/20/2021: Nausea comes and goes - takes when need some days are better - usually nauseated in the morning or mid afternoon. Recently last wt and states that she has been under stress. Patient has been struggling with her son who is an addict. Patient reports she does not have a appetite. Feeling full fast and burning sensation.Feels this might have been worse due too her dealing with recent stress. The patient denies change in bowel habits, rectal bleeding or black stools . Having a bowel movement daily formed Episode last night burning is in her chest Fatigued and craving ice badly. Iron has not been taking for the past month Has not been taking carafate because hard to swallow Pantoprazole and famotidine at night Nausea - promethazine -Recommendations to continue pantoprazole 40 mg once daily on empty stomach, Carafate dissolved in water-colon cancer screening colonoscopy was ordered Current Outpatient Medications Medication Sig Promethazine-DM (PHENERGAN-DM) 6.25-15 mg/5 mL syrup Take 5 mL by mouth four times daily as needed for cough. MULTIVITAMIN ORAL Take by mouth once daily. elderberry fruit (ELDERBERRY ORAL) Take by mouth once daily. pravastatin (PRAVACHOL) 20 mg tablet Take 1 tablet by mouth daily at bedtime. FLUoxetine (PROZAC) 20 mg capsule Take 1 capsule by mouth once daily. esomeprazole (NEXIUM) 40 mg capsule Take 1 capsule by mouth once daily. famotidine (PEPCID) 20 mg tablet Take 1 tablet by mouth once daily. albuterol HFA (PROVENTIL HFA, VENTOLIN HFA) 90 mcg/actuation inhaler Inhale 2 Puffs as instructed every 4 hours as needed for wheezing/shortness of breath. polyethylene glycol 3350 (MIRALAX, GLYCOLAX) 17 gram/dose powder Use as directed for Miralax / Gatorade Bowel Prep Kit (Patient not taking: Reported on 11/29/2021 ) Bisacodyl (DULCOLAX) 5 mg tab Use as directed for Miralax / Gatorade Bowel Prep Kit (Patient not taking: Reported on 11/29/2021 ) No current facility-administered medications for this visit. ALLERGIES Allergen Reactions Aleve [Naproxen Sod* GI Upset Bactrim [Sulfametho* Intolerance dizziness and upset stomach Lipitor [Atorvastat* Intolerance Elevated Liver enzymes Penicillins Unknown Tape [Adhesive Tape* Rash Tylenol [Acetaminop* Other: See Comments Nausea Vicodin [Hydrocodon* Vomiting Social History Tobacco Use Smoking status: Never Smoker Smokeless tobacco: Never Used Vaping Use Vaping Use: Never used Substance Use Topics Alcohol use: No Drug use: No PAST MEDICAL HISTORY Diagnosis Date Anxiety state, unspecified Blood dyscrasia Carpal tunnel syndrome Factor V Leiden (HCC) Galactorrhea not associated with childbirth 2007 Hiatal hernia 04/13/2003 GONZALESDCarey Lundy History of 1987,1989,1993 Iron deficiency anemia, unspecified Mental disorder Migraine, unspecified, without mention of intractable migraine without mention of status migrainosus Other pulmonary embolism and infarction 1987 Pulmonary embolism & factor 5 Leiden PAST SURGICAL HISTORY Procedure Laterality Date DELIVERY ONLY 1987,1989,1993 , low transverse EGD 11/24/2020 ESOPHAGOGASTRODUODENOSCOPY TRANSORAL DIAGNOSTIC 04/13/[address] [facility] Dr. Lundy ESOPHAGOGASTRODUODENOSCOPY TRANSORAL DIAGNOSTIC 12/08/2018 EGD HYSTERECTOMY HX 2005 left ovaries INCISE FINGER TENDON SHEATH Left 01/11/2021 Left middle trigger finger release GUERIN W/O FACETEC FORAMOT/DSC / VRT SGM CRV 2005 Laminectomy, cervical and titianium placed NECK SURGERY HX SKIN BIOPSY HX VAGINAL HYSTERECTOMY FAMILY HISTORY Problem Relation Age of Onset Diabetes Mother Headache Mother Hypertension Mother Heart Father 3 NE's, age 52 Cancer Maternal Grandmother Uterine Blood Disease Brother Leiden factor 5, Blood Disease Other Brother's son, Leiden Factor 5 REVIEW OF SYSTEMS Review of Systems Constitutional: Positive for fatigue. Gastrointestinal: Positive for abdominal distention, abdominal pain and nausea. All other systems reviewed and are negative. PHYSICAL EXAM BP 146/78 Pulse 99 Ht 5' 4.567 (1.64m) Wt 154 lb (69.9kg) SpO2 99% BMI 25.97 kg/(m^2). Physical Exam Constitutional: Appearance: Normal appearance. She is normal weight. HENT: Head: Normocephalic and atraumatic. Eyes: Extraocular Movements: Extraocular movements intact. Pupils: Pupils are equal, round, and reactive to light. Cardiovascular: Rate and Rhythm: Normal rate and regular rhythm. Pulses: Normal pulses. Heart sounds: Normal heart sounds. Pulmonary: Effort: Pulmonary effort is normal. Breath sounds: Normal breath sounds. Abdominal: General: Abdomen is flat. Bowel sounds are normal. Palpations: Abdomen is soft. Tenderness: There is abdominal tenderness in the epigastric area. Musculoskeletal: General: Normal range of motion. Cervical back: Normal range of motion and neck supple. Skin: General: Skin is warm and dry. Neurological: General: No focal deficit present. Mental Status: She is alert and oriented to person, place, and time. Psychiatric: Mood and Affect: Mood normal. Behavior: Behavior normal. ASSESSMENT: Gastroesophageal reflux disease with esophagitis without hemorrhage (primary encounter diagnosis) PLAN: Assessment/Plan (K21.00) Gastroesophageal reflux disease with esophagitis without hemorrhage (primary encounter diagnosis) 1. Gastroesophageal reflux disease with esophagitis without hemorrhage PAtient has ongoing burning in stomach and epigastric pain. She reports she is still under a lot ofstress and now working 2nd shift. Patient reports she will take pantoprazole 40 mg in the morningand carafate and will still have ongoing discomfort through out the day by the time she lays down she reports worsening of symptoms keeping her up when trying to sleep. She was taking TUMs usually everynight. She reports she is not taking carafate as prescribed or pepcid 20mg. Recommended the following: STOP PANTOPRAZOLE Start NEXIUM 40MG - TAKE ON EMPTY STOMACH CONTINUE CARAFATE DISSOLVED IN WATER TWICE DAILY PEPCID 20MG AT BEDTIME Discussed with patient to f/u with primary or [facility] clinic to get better control of her daily MOORE - Discussed stopping the Advil Avoid NSAIDs (such as Advil, Ibuprofen, Excedrin, Mobic), tobacco, alcohol, carbonated beverages, caffeine, chocolate, tomato based sauces, spicy/fatty foods, and peppermint Avoid eating large meals. Avoid eating less than 3 hours before bed. Weight loss. Elevate the head of the bed 6 inches, or at least invest in a wedge pillow. Follow up in office 2-3 months/PRN. Recommended to please call office/go to ER if fever, chills, chest pain, SOB, diarrhea, nausea, emesis, worsening abdominal pain, dehydration occurs I spent 30 minutes in the visit, with more than 50% of the total [id number] time of the visit in counseling / coordination of care. I have confirmed and edited as necessary, the PFSH and ROS obtained by others. Aida Villasenor APRN.CNP DATE: 01/29/22 TIME: 8:35 AM [facility] of Present illness Narrative* Desire Winter (Tech), Tech - 08/23/2020 1:20 PM EDT Radiology Service Progress Note PATIENT NAME: Estuardo Villa DATE OF SERVICE: August 23, 2020 TIME: 1:02 PM PATIENT IDENTITY VERIFICATION COMPLETED USING TWO (2) IDENTIFIERS: Name and Date of confirmedby patient verbally. FALL SCREENING: Has the patient had 2 falls in the last year or 1 fall with injury or currently using an Ambulatory Assistive Device (Walker, Cane, Wheelchair, Crutches, etc.)? No PATIENT GENDER DATA: Female. status: : No status: NO. PATIENT RELEVANT IMPLANT DATA REVIEWED: Not Applicable RADIOLOGY DEPARTMENT: General X-ray: Exam(s) Completed: Upper Extremity X- Ray(s): Hand, bilateral : PERIPHERAL IV DATA: Not applicable SIGNED BY: Mary Rao August 23, 2020 1:02 PM [place] [id number] History of Past illness Narrative* Problem Noted Date Resolved Date Galactorrhea not associated with childbirth 06/1209/30/2018 Mastodynia 07/07/2010 09/30/2018 Lump or mass in breast 07/07/2010 8 documented as of this encounter (statuses as of 01/29/2022) [address] History of Past illness Narrative* Problem Noted Date Resolved Date Galactorrhea not associated with childbirth 06/1209/30/2018 Mastodynia 07/07/2010 09/30/2018 Lump or mass in breast 07/07/2010 8 documented as of this encounter (statuses as of 01/29/2022) [address]27[address] History of Past illness Narrative* Problem Noted Date Resolved Date Galactorrhea not associated with childbirth 06/1209/30/2018 Mastodynia 07/07/2010 09/30/2018 Lump or mass in breast 07/07/2010 8 documented as of this encounter (statuses as of 01/29/2022) [address]27[address] History of Past illness Narrative* Problem Noted Date Resolved Date Galactorrhea not associated with childbirth 06/1209/30/2018 Mastodynia 07/07/2010 09/30/2018 Lump or mass in breast 07/07/2010 8 documented as of this encounter (statuses as of 01/30/2022) [address]27[address] History of Past illness Narrative* Problem Noted Date Resolved Date Galactorrhea not associated with childbirth 06/1209/30/2018 Mastodynia 07/07/2010 09/30/2018 Lump or mass in breast 07/07/2010 8 documented as of this encounter (statuses as of 02/01/2022) [address] History of Past illness Narrative* Problem Noted Date Resolved Date Galactorrhea not associated with childbirth 06/1209/30/2018 Mastodynia 07/07/2010 09/30/2018 Lump or mass in breast 07/07/2010 8 documented as of this encounter (statuses as of 02/01/2022) [address] History of Past illness Narrative* Problem Noted Date Resolved Date Galactorrhea not associated with childbirth 06/1209/30/2018 Mastodynia 07/07/2010 09/30/2018 Lump or mass in breast 07/07/2010 8 documented as of this encounter (statuses as of 04/11/2022) [address] History of Past illness Narrative* Problem Noted Date Resolved Date Galactorrhea not associated with childbirth 06/1209/30/2018 Mastodynia 07/07/2010 09/30/2018 Lump or mass in breast 07/07/2010 8 documented as of this encounter (statuses as of 06/11/2022) [address] History of Past illness Narrative* Problem Noted Date Resolved Date Galactorrhea not associated with childbirth 06/1209/30/2018 Mastodynia 07/07/2010 09/30/2018 Lump or mass in breast 07/07/2010 8 documented as of this encounter (statuses as of 08/07/2022) [address] History of Past illness Narrative* Problem Noted Date Resolved Date Galactorrhea not associated with childbirth 06/1209/30/2018 Mastodynia 07/07/2010 09/30/2018 Lump or mass in breast 07/07/2010 8 documented as of this encounter (statuses as of 08/08/2022) [address] History of Past illness Narrative* Problem Noted Date Resolved Date Galactorrhea not associated with childbirth 06/1209/30/2018 Mastodynia 07/07/2010 09/30/2018 Lump or mass in breast 07/07/2010 8 documented as of this encounter (statuses as of 10/17/2022) [address] History of Past illness Narrative* Problem Noted Date Resolved Date Galactorrhea not associated with childbirth 06/1209/30/2018 Mastodynia 07/07/2010 09/30/2018 Lump or mass in breast 07/07/2010 8 documented as of this encounter (statuses as of 11/27/2022) [address] History of Past illness Narrative* Problem Noted Date Resolved Date Galactorrhea not associated with childbirth 06/1209/30/2018 Mastodynia 07/07/2010 09/30/2018 Lump or mass in breast 07/07/2010 8 documented as of this encounter (statuses as of 12/03/2022) [address] History of Past illness Narrative* Problem Noted Date Resolved Date Galactorrhea not associated with childbirth 06/1209/30/2018 Mastodynia 07/07/2010 09/30/2018 Lump or mass in breast 07/07/2010 8 documented as of this encounter (statuses as of 12/04/2022) [address] History of Past illness Narrative* Problem Noted Date Resolved Date Galactorrhea not associated with childbirth 06/1209/30/2018 Mastodynia 07/07/2010 09/30/2018 Lump or mass in breast 07/07/2010 8 documented as of this encounter (statuses as of 12/07/2022) [address] History of Past illness Narrative* Problem Noted Date Resolved Date Galactorrhea not associated with childbirth 06/1209/30/2018 Mastodynia 07/07/2010 09/30/2018 Lump or mass in breast 07/07/2010 8 documented as of this encounter (statuses as of 12/21/2022) [address] History of Past illness Narrative* Problem Noted Date Resolved Date Galactorrhea not associated with childbirth 06/1209/30/2018 Mastodynia 07/07/2010 09/30/2018 Lump or mass in breast 07/07/2010 8 documented as of this encounter (statuses as of 01/07/2023) [address]27[address] History of Past illness Narrative* Problem Noted Date Resolved Date Galactorrhea not associated with childbirth 06/1209/30/2018 Mastodynia 07/07/2010 09/30/2018 Lump or mass in breast 07/07/2010 8 documented as of this encounter (statuses as of 01/28/2023) [address]27[address] History of Past illness Narrative* Problem Noted Date Resolved Date Galactorrhea not associated with childbirth 06/1209/30/2018 Mastodynia 07/07/2010 09/30/2018 Lump or mass in breast 07/07/2010 8 documented as of this encounter (statuses as of 01/30/2023) [address]27[address] History of Past illness Narrative* Problem Noted Date Resolved Date Galactorrhea not associated with childbirth 06/1209/30/2018 Mastodynia 07/07/2010 09/30/2018 Lump or mass in breast 07/07/2010 8 documented as of this encounter (statuses as of 02/05/2023) [address]27[address] History of Past illness Narrative* Problem Noted Date Resolved Date Galactorrhea not associated with childbirth 06/1209/30/2018 Mastodynia 07/07/2010 09/30/2018 Lump or mass in breast 07/07/2010 8 documented as of this encounter (statuses as of 02/07/2023) [address]27[address] History of Past illness Narrative* Problem Noted Date Resolved Date Galactorrhea not associated with childbirth 06/1209/30/2018 Mastodynia 07/07/2010 09/30/2018 Lump or mass in breast 07/07/2010 8 documented as of this encounter (statuses as of 02/15/2023) [address]27[address] History of Past illness Narrative* Problem Noted Date Resolved Date Galactorrhea not associated with childbirth 06/1209/30/2018 Mastodynia 07/07/2010 09/30/2018 Lump or mass in breast 07/07/2010 8 documented as of this encounter (statuses as of 02/20/2023) [place] [address] History of Past illness Narrative* Problem Noted Date Resolved Date Galactorrhea not associated with childbirth 06/1209/30/2018 Mastodynia 07/07/2010 09/30/2018 Lump or mass in breast 07/07/2010 8 documented as of this encounter (statuses as of 02/22/2023) [address]27[address] History of Past illness Narrative* Problem Noted Date Resolved Date Galactorrhea not associated with childbirth 06/1209/30/2018 Mastodynia 07/07/2010 09/30/2018 Lump or mass in breast 07/07/2010 8 documented as of this encounter (statuses as of 02/25/2023) [address]27[address] History of Past illness Narrative* Problem Noted Date Resolved Date Galactorrhea not associated with childbirth 06/1209/30/2018 Mastodynia 07/07/2010 09/30/2018 Lump or mass in breast 07/07/2010 8 documented as of this encounter (statuses as of 02/27/2023) [address]27[address] History of Past illness Narrative* Problem Noted Date Resolved Date Galactorrhea not associated with childbirth 06/1209/30/2018 Mastodynia 07/07/2010 09/30/2018 Lump or mass in breast 07/07/2010 8 documented as of this encounter (statuses as of 03/06/2023) [place] [address] History of Past illness Narrative* Problem Noted Date Resolved Date Galactorrhea not associated with childbirth 06/1209/30/2018 Mastodynia 07/07/2010 09/30/2018 Lump or mass in breast 07/07/2010 8 documented as of this encounter (statuses as of 03/08/2023) [address]27[address] History of Past illness Narrative* Problem Noted Date Resolved Date Galactorrhea not associated with childbirth 06/1209/30/2018 Mastodynia 07/07/2010 09/30/2018 Lump or mass in breast 07/07/2010 8 documented as of this encounter (statuses as of 03/14/2023) [address]27[address] History of Past illness Narrative* Problem Noted Date Resolved Date Galactorrhea not associated with childbirth 06/1209/30/2018 Mastodynia 07/07/2010 09/30/2018 Lump or mass in breast 07/07/2010 8 documented as of this encounter (statuses as of 05/07/2023) [address]27[address] History of Past illness Narrative* Problem Noted Date Resolved Date Galactorrhea not associated with childbirth 06/1209/30/2018 Mastodynia 07/07/2010 09/30/2018 Lump or mass in breast 07/07/2010 8 documented as of this encounter (statuses as of 05/07/2023) [address]27[address] History of Past illness Narrative* Problem Noted Date Resolved Date Galactorrhea not associated with childbirth 06/1209/30/2018 Mastodynia 07/07/2010 09/30/2018 Lump or mass in breast 07/07/2010 8 documented as of this encounter (statuses as of 05/17/2023) [address]27[address] History of Past illness Narrative* Problem Noted Date Diagnosed Date Resolved Date Galactorrhea not associated with childbirth 07/07/2010 09/30/2018 Mastodynia 07/07/2010 09/30/2018 Lump or mass in breast 07/07/201009/30 documented as of this encounter (statuses as of 05/20/2023) [place] [address] History of Past illness Narrative* Problem Noted Date Diagnosed Date Resolved Date Galactorrhea not associated with childbirth 07/07/2010 09/30/2018 Mastodynia 07/07/2010 09/30/2018 Lump or mass in breast 07/07/201009/30 documented as of this encounter (statuses as of 05/20/2023) [address]27[address] History of Past illness Narrative* Problem Noted Date Diagnosed Date Resolved Date Galactorrhea not associated with childbirth 07/07/2010 09/30/2018 Mastodynia 07/07/2010 09/30/2018 Lump or mass in breast 07/07/201009/30 documented as of this encounter (statuses as of 05/28/2023) [address]27[address] History of Past illness Narrative* Problem Noted Date Diagnosed Date Resolved Date Galactorrhea not associated with childbirth 07/07/2010 09/30/2018 Mastodynia 07/07/2010 09/30/2018 Lump or mass in breast 07/07/201009/30 documented as of this encounter (statuses as of 06/07/2023) [address]27[address] History of Past illness Narrative* Problem Noted Date Diagnosed Date Resolved Date Galactorrhea not associated with childbirth 07/07/2010 09/30/2018 Mastodynia 07/07/2010 09/30/2018 Lump or mass in breast 07/07/201009/30 documented as of this encounter (statuses as of 06/11/2023) [address]27[address] History of Past illness Narrative* Problem Noted Date Diagnosed Date Resolved Date Galactorrhea not associated with childbirth 07/07/2010 09/30/2018 Mastodynia 07/07/2010 09/30/2018 Lump or mass in breast 07/07/201009/30 documented as of this encounter (statuses as of 06/13/2023) [address]27[address]2010 History of Past illness Narrative* Problem Noted Date Diagnosed Date Resolved Date Galactorrhea not associated with childbirth 07/07/2010 09/30/2018 Mastodynia 07/07/2010 09/30/2018 Lump or mass in breast 07/07/201009/30 documented as of this encounter (statuses as of 06/27/2023) [place] [address] History of Past illness Narrative* Problem Noted Date Diagnosed Date Resolved Date Galactorrhea not associated with childbirth 07/07/2010 09/30/2018 Mastodynia 07/07/2010 09/30/2018 Lump or mass in breast 07/07/201009/30 documented as of this encounter (statuses as of 08/10/2023) [address]27[address] History of Past illness Narrative* Problem Noted Date Diagnosed Date Resolved Date Galactorrhea not associated with childbirth 07/07/2010 09/30/2018 Mastodynia 07/07/2010 09/30/2018 Lump or mass in breast 07/07/201009/30 documented as of this encounter (statuses as of 08/16/2023) [address]27[address] History of Past illness Narrative* Problem Noted Date Diagnosed Date Resolved Date Galactorrhea not associated with childbirth 07/07/2010 09/30/2018 Mastodynia 07/07/2010 09/30/2018 Lump or mass in breast 07/07/201009/30 documented as of this encounter (statuses as of 08/24/2023) [place] [address] History of Past illness Narrative* Problem Noted Date Diagnosed Date Resolved Date Galactorrhea not associated with childbirth 07/07/2010 09/30/2018 Mastodynia 07/07/2010 09/30/2018 Lump or mass in breast 07/07/201009/30 documented as of this encounter (statuses as of 08/25/2023) [address]27[address] History of Past illness Narrative* Problem Noted Date Diagnosed Date Resolved Date Galactorrhea not associated with childbirth 07/07/2010 09/30/2018 Mastodynia 07/07/2010 09/30/2018 Lump or mass in breast 07/07/201009/30 documented as of this encounter (statuses as of 08/30/2023) [address]27[address] History of Past illness Narrative* Problem Noted Date Diagnosed Date Resolved Date Galactorrhea not associated with childbirth 07/07/2010 09/30/2018 Mastodynia 07/07/2010 09/30/2018 Lump or mass in breast 07/07/201009/30 documented as of this encounter (statuses as of 09/15/2023) [place] [address] History of Past illness Narrative* Problem Noted Date Diagnosed Date Resolved Date Galactorrhea not associated with childbirth 07/07/2010 09/30/2018 Mastodynia 07/07/2010 09/30/2018 Lump or mass in breast 07/07/201009/30 documented as of this encounter (statuses as of 09/20/2023) [address]27[address] History of Past illness Narrative* Problem Noted Date Diagnosed Date Resolved Date Galactorrhea not associated with childbirth 07/07/2010 09/30/2018 Mastodynia 07/07/2010 09/30/2018 Lump or mass in breast 07/07/201009/30 documented as of this encounter (statuses as of 09/25/2023) [address]27[address] History of Past illness Narrative* Problem Noted Date Diagnosed Date Resolved Date Galactorrhea not associated with childbirth 07/07/2010 09/30/2018 Mastodynia 07/07/2010 09/30/2018 Lump or mass in breast 07/07/201009/30 documented as of this encounter (statuses as of 10/02/2023) [place] [address] History of Past illness Narrative* Problem Noted Date Diagnosed Date Resolved Date Galactorrhea not associated with childbirth 07/07/2010 09/30/2018 Mastodynia 07/07/2010 09/30/2018 Lump or mass in breast 07/07/201009/30 documented as of this encounter (statuses as of 01/09/2024) [place] [address] History of Past illness Narrative* Problem Noted Date Diagnosed Date Resolved Date Galactorrhea not associated with childbirth 07/07/2010 09/30/2018 Mastodynia 07/07/2010 09/30/2018 Lump or mass in breast 07/07/201009/30 documented as of this encounter (statuses as of 02/03/2024) [address]27[address] History of Past illness Narrative* Problem Noted Date Diagnosed Date Resolved Date Galactorrhea not associated with childbirth 07/07/2010 09/30/2018 Mastodynia 07/07/2010 09/30/2018 Lump or mass in breast 07/07/201009/30 documented as of this encounter (statuses as of 02/27/2024) [facility] note* Diagnosis [facility] for [facility] Diagnosis Gastroesophageal reflux disease with esophagitis without hemorrhage- Primary [facility] Diagnosis Anxiety Anxiety state, unspecified [facility] Diagnosis URI with cough and congestion [facility] Diagnosis [facility] Diagnosis Anxiety Anxiety state, unspecified [facility] Diagnosis Hiatal hernia with GERD and esophagitis- Primary Chronic nausea Nausea alone Screening for colon cancer Special screening for malignant neoplasms, colon Dyspepsia Dyspepsia and other specified disorders of function of stomach Nausea Nausea alone [facility]* Diagnosis Heartburn [facility]* Diagnosis Acute pain of right knee- [facility] Diagnosis Acute pain of right knee- Primary [facility]* Diagnosis Encounter for screening mammogram for breast cancer documented [facility] this [facility] Diagnosis Iron deficiency anemia, unspecified iron deficiency anemia type- Primary Hyperlipidemia, unspecified hyperlipidemia type documented in this [facility] Diagnosis Iron deficiency anemia due to chronic blood loss- Primary Iron deficiency anemia secondary to blood loss (chronic) Factor V Leiden (HCC) Primary hypercoagulable state documented in this [facility] Diagnosis Wellness examination- Primary Hyperlipidemia, unspecified hyperlipidemia type Iron deficiency anemia, unspecified iron deficiency anemia type Dizziness Dizziness and giddiness Anxiety Anxiety state, unspecified Esophageal dysphagia Dysphagia, pharyngoesophageal phase Hiatal hernia Diaphragmatic hernia without mention of obstruction or gangrene Globus sensation Gastrointestinal malfunction arising from mental factors Epigastric pain Abdominal pain, epigastric Factor V Leiden (HCC) Primary hypercoagulable state Palpitations Other migraine without status migrainosus, not intractable Abnormal result on screening urine test Encounter for screening mammogram for malignant neoplasm of breast Other screening mammogram Special screening examination for viral disease Special screening examination for unspecified viral disease Encounter for hepatitis C virus screening test for high risk patient documented [facility] this [facility] Diagnosis Iron deficiency anemia due to chronic blood loss- Primary Iron deficiency anemia secondary to blood loss (chronic) documented in this [facility] Diagnosis Anxiety Anxiety state, unspecified documented in this [facility] Diagnosis Iron deficiency anemia due to chronic blood loss- Primary Iron deficiency anemia secondary to blood loss (chronic) documented in this [facility] Diagnosis Iron deficiency anemia due to chronic blood loss- Primary Iron deficiency anemia secondary to blood loss (chronic) documented in this [facility] Diagnosis Iron deficiency anemia due to chronic blood loss- Primary Iron deficiency anemia secondary to blood loss (chronic) Factor V Leiden (HCC) Primary hypercoagulable state documented in this [facility] Diagnosis Acute right-sided thoracic back pain- Primary Rib pain on right side Chest pain, unspecified [facility]* Diagnosis Iron deficiency anemia due to chronic blood loss- Primary Iron deficiency anemia secondary to blood loss (chronic) Factor V Leiden (HCC) Primary hypercoagulable state documented in this [facility] Diagnosis Other migraine without status migrainosus, not intractable- Primary Daily headache Headache Motion sickness, subsequent encounter Anxiety Anxiety state, unspecified Hot flashes Symptomatic menopausal or female climacteric states documented in this [facility] Diagnosis Heartburn [facility]* Diagnosis Migraine without aura and without status migrainosus, not intractable- Primary Migraine without aura, without mention of intractable migraine without mention of status migrainosus Headache, unspecified headache type Vertigo Dizziness and giddiness documented in this [facility] Diagnosis Headache, unspecified headache type- Primary Vertigo Dizziness and giddiness documented in this [facility] Diagnosis Microhematuria- Primary Microscopic hematuria Hyperlipidemia, unspecified hyperlipidemia type Iron deficiency anemia due to chronic blood loss Iron deficiency anemia secondary to blood loss (chronic) Factor V Leiden (HCC) Primary hypercoagulable state Dizziness Dizziness and giddiness Globus sensation Gastrointestinal malfunction arising from mental factors Epigastric pain Abdominal pain, epigastric Chronic superficial gastritis without bleeding Atrophic gastritis without mention of hemorrhage Esophageal dysphagia Dysphagia, pharyngoesophageal phase Hiatal hernia Diaphragmatic hernia without mention of obstruction or gangrene Palpitations Anxiety Anxiety state, unspecified Other migraine without status migrainosus, not intractable 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 Diagnosis Rhinosinusitis- Primary Unspecified sinusitis (chronic) documented in this encounter [facility]* Diagnosis Encounter for screening mammogram for breast cancer documented in this [facility] Diagnosis Headache, unspecified headache type- Primary Migraine without aura and without status migrainosus, not intractable Migraine without aura, without mention of intractable migraine without mention of status migrainosus documented in this encounter [facility]* Diagnosis Headache, unspecified headache type documented in this encounter [facility]* Diagnosis Acute non-recurrent pansinusitis- Primary documented in this [facility] Diagnosis Headache, unspecified headache type- Primary Migraine without aura and without status migrainosus, not intractable Migraine without aura, without mention of intractable migraine without mention of status migrainosus documented [facility]* Diagnosis Encounter for screening mammogram for breast cancer documented in this [facility] Diagnosis Heartburn documented in this encounter [facility]* Diagnosis Epigastric pain- Primary Abdominal pain, epigastric Heartburn Chronic superficial gastritis without bleeding Atrophic gastritis without mention of hemorrhage Black stool Nonspecific abnormal finding in stool contents Anxiety Anxiety state, unspecified documented in this encounter [facility] note* Diagnosis Hypercalcemia- Primary Hyperkalemia Hyperpotassemia documented in this encounter [facility] note* Diagnosis Anxiety- Primary Anxiety state, unspecified Hyperlipidemia, unspecified hyperlipidemia type Chronic superficial gastritis without bleeding Atrophic gastritis without mention of hemorrhage documented in this encounter [facility] note* Diagnosis Hyperlipidemia, unspecified hyperlipidemia type documented in this encounter [facility] note* Diagnosis Acute right-sided thoracic back pain Rib pain on right side Chest pain, unspecified documented in this encounter [facility] note* Diagnosis Bilateral hand pain Pain in limb Trigger middle finger of left hand Trigger finger (acquired) documented in this encounter [facility] note* Diagnosis COVID-19- Primary documented in this encounter [facility] note* Diagnosis Patient left without being seen- Primary Surgical or other procedure not carried out because of patient's decision documented in this encounter [facility] note* Diagnosis Acute cough- Primary URI, acute Acute upper respiratory infections of unspecified site Acute cough documented in this encounter [facility] note* Diagnosis Acute cough documented in this encounter [facility] note* Diagnosis Subacute cough- Primary Cough Subacute cough Cough documented in this encounter [facility] note* Diagnosis Subacute cough Cough documented in this encounter [facility] note* Diagnosis Acute bronchitis, unspecified organism- Primary documented in this encounter [facility] noteNo assessment information availableWCincinnati [facility] Work Phone: Evaluation note* Diagnosis Migraine without aura and without status migrainosus, not intractable- Primary Migraine without aura, without mention of intractable migraine without mention of status migrainosus Anxiety Anxiety state, unspecified Mixed hyperlipidemia Gastroesophageal reflux disease without esophagitis Esophageal reflux Factor V Leiden (HCC) Primary hypercoagulable state Nausea Nausea alone Screening for depression Wellness examination documented in this encounter [facility] note* Diagnosis Heartburn documented in this encounter [facility] note* Diagnosis Pain of left lower extremity- Primary Factor V Leiden (HCC) Primary hypercoagulable state History of pulmonary embolism Personal history of pulmonary embolism [facility] Diagnosis Migraine without aura and without status migrainosus, not intractable Migraine without aura, without mention of intractable migraine without mention of status migrainosus [facility] Additional Instructions Plenty of fluids and rest. Slowly increase your diet as tolerated. Water, 7-Up, ice chips, Gatorade and increase slowly as tolerated. Zofran as needed for nausea. You can let dissolve in your tongue or if Abels swallow it. Follow-up with your primary care physician if not improving or return if unable to keep fluids down or feeling worse. Your CAT scan labs look good. Suspect this to be a viral illness.[facility] Work Phone: Hospital Discharge instructionsAdditional Instructions Ultrasound left lower leg negative for DVT. Use Tylenol as needed. Monitor symptoms and follow-up with your doctor.[facility] Work Phone: Reason for referral (narrative)* Diagnostic Procedure Only (Routine) - Pending Review Specialty Diagnoses / Procedures Referred By Taryn grimaldo Referred To Contact [facility] Diagnoses Encounter for screening mammogram for breast cancer Procedures ASHLEE SCREENING SCREENING MAMMOGRAPHY BI 2-VIEW BREAST INC CAD Justus Mcdonald MD [address] [place] [address] [facility] [address] [place] [address] Referral ID Status Reason Start Date Expiration Date Visits Requested Visits Authorized [id number] Pending Review Auto-Generat ed Referral 01/24/2022 02/23/2023 1 1 [facility] for referral (narrative)* Diagnostic Procedure Only (Routine) - Pending Review Specialty Diagnoses / Procedures Referred By Taryn grimaldo Referred To Contact [facility]CULAR [facility] FUNCTION[facility] Diagnoses Chronic nausea Dyspepsia Nausea Procedures NM GASTRIC EMPTYING SOLID GASTRIC EMPTYING STUDY Eva Morton PA-C [address] [place] [address] [facility] Functional [facility] [address] [place] [address] Referral ID Status Reason Start Date Expiration Date Visits Requested Visits Authorized [id number] Pending Review Auto-Generat ed Referral 11/27/2022 12/27/2023 1 1 * Outpatient Procedure (Routine) - Pending Review Specialty Diagnoses / Procedures Referred By Contac t Referred To Contact [facility] Diagnoses Screening for colon cancer Procedures COLONOSCOPY SCREENING COLONOSCOPY FLX DX W/COLLJ SPEC WHEN PFRMD Eva Morton PA-C [address] [place] [address] [facility] [place] [address] [place] [address] Referral ID Status Reason Start Date Expiration Date Visits Requested Visits Authorized [id number] Pending Review Auto-Generat ed Referral 11/27/2022 11/27/2023 1 1 [facility] for referral (narrative)* Diagnostic Procedure Only (Routine) - Pending Review Specialty Diagnoses / Procedures Referred By Trayn t Referred To Contact [facility] Diagnoses Encounter for screening mammogram for breast cancer Procedures ASHLEE SCREENING SCREENING MAMMOGRAPHY BI 2-VIEW BREAST INC CAD Justus Mcdonald MD [address] [place] [address] [facility] [address] [place] [address] Referral ID Status Reason Start Date Expiration Date Visits Requested Visits Authorized [id number] Pending Review Auto-Generat ed Referral 01/02/2023 02/01/2024 1 1 [facility] for referral (narrative)* Diagnostic Procedure Only (Routine) - Authorized Specialty Diagnoses / Procedures Referred By Contac t Referred To Contact [facility] Diagnoses Encounter for screening mammogram for malignant neoplasm of breast Procedures ASHLEE SCREENING SCREENING MAMMOGRAPHY BI 2-VIEW BREAST INC Luis Hines PA-C [address] [place] [address] [facility] [address] [place] [address] Referral ID Status Reason Start Date Expiration Date Visits Requested Visits Authorized [id number] Authorized Auto-Generat ed Referral 02/04/2023 03/05/2024 1 1 [facility] for referral (narrative)* Diagnostic Procedure Only (Urgent) - Closed Specialty Diagnoses / Procedures Referred By Contac t Referred To Contact XR IMAGING Diagnoses Acute right-sided thoracic back pain Rib pain on right side Procedures XR THORACIC GENERAL 3V AP/LAT/SWIMMERS RADEX SPINE THORACIC 3 VIEWS [facility] [address] [place] [address] Xr Imaging Referral ID Status Reason Start Date Expiration Date V isits Requested Visits Authorized [id number] Closed Auto-Generate d Referral 03/14/2023 04/12/2024 1 1 * Diagnostic Procedure Only (Urgent) - Closed Specialty Diagnoses / Procedures Referred By Contac t Referred To Contact XR IMAGING Diagnoses Acute right-sided thoracic back pain Rib pain on right side Procedures XR RIBS/CHEST 3V AP RIB/OBLS/CXR RIGHT RADEX RIBS UNI W/POSTEROANT CH MINIMUM 3 VIEWS [facility] [address] [place] [address] Xr Imaging Referral ID Status Reason Start Date Expiration Date V isits Requested Visits Authorized [id number] Closed Auto-Generate d Referral 03/14/2023 04/12/2024 1 1 [facility] for referral (narrative)* Diagnostic Procedure Only (Routine) - Closed Specialty Diagnoses / Procedures Referred By Contac t Referred To Contact [facility] Diagnoses Encounter for screening mammogram for breast cancer Procedures ASHLEE SCREENING SCREENING MAMMOGRAPHY BI 2-VIEW BREAST INC CAD Justus Mcdonald MD [address] [place] [address] [facility] [address] [place] [address] Referral ID Status Reason Start Date Expiration Date V isits Requested Visits Authorized [id number] Closed Auto-Generate d Referral 01/24/2022 02/23/2023 1 1 [facility] for referral (narrative)* Diagnostic Procedure Only (Routine) - Pending Review Specialty Diagnoses / Procedures Referred By Contac t Referred To Contact [facility] Diagnoses Encounter for screening mammogram for breast cancer Procedures ASHLEE SCREENING SCREENING MAMMOGRAPHY BI 2-VIEW BREAST INC CAD Harry, Justus Kern MD [address] [place] [address] [facility] [address] [place] [address] Referral ID Status Reason Start Date Expiration Date Visits Requested Visits Authorized [id number] Pending Review Auto-Generat ed Referral 04/01/2024 05/01/2025 1 1 [facility] for referral (narrative)* Diagnostic Procedure Only (Urgent) - Closed Specialty Diagnoses / Procedures Referred By Contac t Referred To Contact XR IMAGING Diagnoses Acute right-sided thoracic back pain Rib pain on right side Procedures XR THORACIC GENERAL 3V AP/LAT/SWIMMERS RADEX SPINE THORACIC 3 VIEWS [facility] [address] [place] [address] [place] [address] Referral ID Status Reason Start Date Expiration Date V isits Requested Visits Authorized [id number] Closed Auto-Generate d Referral 03/14/2023 04/12/2024 1 1 * Diagnostic Procedure Only (Urgent) - Closed Specialty Diagnoses / Procedures Referred By Contac t Referred To Contact XR IMAGING Diagnoses Acute right-sided thoracic back pain Rib pain on right side Procedures XR RIBS/CHEST 3V AP RIB/OBLS/CXR RIGHT RADEX RIBS UNI W/POSTEROANT CH MINIMUM 3 VIEWS [facility] [address] [place] [address] [place] [address] Referral ID Status Reason Start Date Expiration Date V isits Requested Visits Authorized [id number] Closed Auto-Generate d Referral 03/14/2023 04/12/2024 1 1 [facility] for referral (narrative)No reason for referral information availableWCincinnati [facility] Work Phone[facility] N[facility]* Diagnostic Procedure Only (Routine) - Closed Specialty Diagnoses / Procedures Referred By Taryn t Referred To Contact [facility] Diagnoses Encounter for screening mammogram for breast cancer Procedures ASHLEE SCREENING SCREENING MAMMOGRAPHY BI 2-VIEW BREAST INC CAD Justus Mcdonald MD [address] [place] [address] [facility] [address] [facility] [address] Referral ID Status Reason Start Date Expiration Date V isits Requested Visits Authorized [id number] Closed Auto-Generate d Referral 01/24/2022 02/23/2023 1 1 [facility] for visit Narrative* Diagnostic Procedure Only (Urgent) - Closed Specialty Diagnoses / Procedures Referred By Taryn grimaldo Referred To Contact XR IMAGING Diagnoses Acute right-sided thoracic back pain Rib pain on right side Procedures XR THORACIC GENERAL 3V AP/LAT/SWIMMERS RADEX SPINE THORACIC 3 VIEWS [facility] [address] [place] [address] [place] [address] Referral ID Status Reason Start Date Expiration Date V isits Requested Visits Authorized [id number] Closed Auto-Generate d Referral 03/14/2023 04/12/2024 1 1 [facility] for visit Narrative* Financial Clearance (Routine) - Authorized Specialty Diagnoses / Procedures Referred By Taryn grimaldo Referred To Contact Diagnoses . Procedures . [place] [address] Referral ID Status Reason Start Date Expiration Date Visits Requested Visits Authorized [id number] Authorized Patient Cleared - Qualified 100% FAS 05/10/2025 08/08/[address] 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 Advance Directive(s) 01/11/2021 10:36 AM Advance Directive(s) 12/30/2020 9:15 AM Advance Directive(s) 11/24/2020 7:46 AM Advance Directive(s) 11/15/2020 4:36 PM Advance Directive(s) 12/08/2018 11:45 AM Documents on File Type Date Recorded 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 No March 29, 2025 8:24pm Advance Directives No September 1:09pm Advance Directive Response Recorded Date/ Time Do you have a Healthcare Power of Grooving Lathe Tender? No March 29, 2025 8:24pm Do you have a Healthcare Power of Grooving Lathe Tender? No July 07, 2025 5:00pm Advance Directives No September 1:09pm Reason for Referral Specialty Diagnoses / Procedures Referred By Contac t Referred To Contact Aida Villasenor APRN.DATER ASSEMBLER [address] [place] [address] Referral ID Status Reason Start Date Expiration Date V isits Requested Visits Authorized [id number] Pending Review 1 1 Specialty Diagnoses / Procedures Referred By Contac t Referred To Contact Justus Hughes MD [address] [place] [address] Referral ID Status Reason Start Date Expiration Date V isits Requested Visits Authorized [id number] Pending Review 1 1 Referral ID Status Reason Start Date Expiration Date V isits Requested Visits Authorized [id number] Pending Review 1 1 Specialty Diagnoses / Procedures Referred By Contac t Referred To Contact [facility] Diagnoses Acute pain of right knee Procedures CONSULT TO PHYSICAL THERAPY PHYSICAL THERAPY EVALUATION HIGH COMPLEX 45 MINS Haagen, Amber, SALES SUPPORT REP.DATER ASSEMBLER [address] [place] [address] [facility] [place] [address] [place] [address] Referral ID Status Reason Start Date Expiration Date Visits Requested Visits Authorized [id number] Pending Review Auto-Generat ed Referral 12/03/2022 12/03/2023 1 1 Specialty Diagnoses / Procedures Referred By Contac t Referred To Contact [facility] Diagnoses Acute pain of right knee Procedures PT REHAB FOLLOW UP ORDER THERAPEUTIC EXERCISES RE, EA 15 MIN. Ranjit Murguia PT [facility] [place] [address] [place] [address] Referral ID Status Reason Start Date Expiration Date Visits Requested Visits Authorized [id number] Waiting for Online Response PCP Requested Referral Auto-Generate d Referral 12/07/2022 03/07/2023 8 8 Specialty Diagnoses / Procedures Referred By Contac t Referred To Contact Diagnoses Iron deficiency anemia, unspecified iron deficiency anemia type Procedures CONSULT TO HEMATOLOGY/ONCOLOGY OFFICE/OUTPATIENT [facility] 60-74 MINUTES Amber Lenz APRN.DATER ASSEMBLER [address] [place] [address] Referral ID Status Reason Start Date Expiration Date Visits Requested Visits Authorized [id number] Authorized PCP Requested Referral 01/25/2023 01/25/2024 1 1 Specialty Diagnoses / Procedures Referred By Contac t Referred To Contact [facility] Diagnoses Daily headache Motion sickness, subsequent encounter Procedures MRI BRAIN WO IVCON MRI BRAIN BRAIN STEM W/O CONTRAST MATERIAL Justus Mcdonald MD [address] [place] [address] Mr Imaging Referral ID Status Reason Start Date Expiration Date Visits Requested Visits Authorized [id number] Additional Clinical Info Needed Auto-Generat ed Referral 05/20/2023 06/18/2024 1 1 Specialty Diagnoses / Procedures Referred By Contac t Referred To Contact Neurology Diagnoses Headache, unspecified headache type Vertigo Procedures CONSULT TO NEUROLOGY OFFICE/OUTPATIENT [facility] 60-74 MINUTES Justus Mcdonald MD [address] [place] [address] Referral ID Status Reason Start Date Expiration Date V isits Requested Visits Authorized [id number] Closed PCP Requested Referral 05/31/2023 05/30/2024 1 1 Specialty Diagnoses / Procedures Referred By Contac t Referred To Contact Courtney Anderson PA-C [address] [place] [address] Referral ID Status Reason Start Date Expiration Date V isits Requested Visits Authorized [id number] Pending Review 1 1 Specialty Diagnoses / Procedures Referred By Contac t Referred To Contact Courtney Anderson PA-C [address] [place] [address] Referral ID Status Reason Start Date Expiration Date V isits Requested Visits Authorized [id number] Pending Review 1 1 Specialty Diagnoses / Procedures Referred By Contac t Referred To Contact [facility] Diagnoses Hyperlipidemia, unspecified hyperlipidemia type Procedures CONSULT TO LIPID CLINIC OFFICE/[facility] 60 [facility]UTES Amber Lenz APRN.[employer] [address] [place] [address] Referral ID Status Reason Start Date Expiration Date Visits Requested Visits Authorized [id number] Authorized PCP Requested Referral 06/29/2024 06/29/2025 1 1 Medications Administered Section Inactive Administered Medications - up to 3 most recent administrations Medication Order MAR Action Action Date Dose Rate Site iron sucrose 200 mg in NaCl 0.9% 100ml (VENOFER) 200 mg, INTRAVENOUS, at 400 mL/hr, Administer over 15 Minutes, ONCE, 1 dose, On Phylicia 02/07/23 at 1500, Please conduct a 30 minute post dose observation. New Bag/Syringe/Bottle 02/07/2023 3:03 PM EDT 200 mg 400 mL/hr Inactive Administered Medications - up to 3 most recent administrations Medication Order MAR Action Action Date Dose Rate Site iron sucrose 200 mg in NaCl 0.9% 100ml (VENOFER) 200 mg, INTRAVENOUS, at 400 mL/hr, Administer over 15 Minutes, ONCE, 1 dose, On Phylicia 02/21/23 at 1500, Please conduct a 30 minute post dose observation. Dr Unger taking over New Bag/Syringe/Bottle 02/21/2023 2:40 PM EDT 200 mg 400 mL/hr Inactive Administered Medications - up to 3 most recent administrations Medication Order MAR Action Action Date Dose Rate Site iron sucrose 200 mg in NaCl 0.9% 100ml (VENOFER) 200 mg, INTRAVENOUS, at 400 mL/hr, Administer over 15 Minutes, ONCE, 1 dose, On 02/25/23 at 1400, Please conduct a 30 minute post dose observation. Dr Unger taking over New Bag/Syringe/Bottle 02/25/2023 2:09 PM EDT 200 mg 400 mL/hr Inactive Administered Medications - up to 3 most recent administrations Medication Order MAR Action Action Date Dose Rate Site iron sucrose 200 mg in NaCl 0.9% 100ml (VENOFER) 200 mg, INTRAVENOUS, at 400 mL/hr, Administer over 15 Minutes, ONCE, 1 dose, On Sat03/06/23 at 1430, Please conduct a 30 minute post dose observation. Dr Unger taking over New Bag/Syringe/Bottle 03/06/2023 2:26 PM EDT 200 mg 400 mL/hr Health Concerns Infection Onset Date Last Indicated Resolved Time COVID-19 Rule-Out 08/14/2023 08/14/2023 08/14/2023 9:44 PM EDT Chief Complaint and Reason for Visit Chief Complaint Admit Date vomiting March 29, 2025 8:18p m Chief Complaint Admit Date vomiting March 29, 2025 8:18p m LEFT LEG PAIN July 07, 2025 4: 48pm Additional Source Comments INFORMATION SOURCE (unrecogn ized section and content) DATE CREATED AUTHOR 05/07/2018 [facility] DATE CREATED AUTHOR AUTHOR'S ORGANIZ ATION 06/04/2018 [facility] (ID) DATE CREATED AUTHOR AUTHOR'S ORGANIZ ATION 01/12/2021 [facility] DATE CREATED AUTHOR AUTHOR'S ORGANIZ ATION 11/20/2021 [facility] DATE CREATED AUTHOR AUTHOR'S ORGANIZ ATION 07/09/2025 [facility] DATE CREATED AUTHOR AUTHOR'S ORGANIZ ATION 07/15/2025 [facility] Source Comments (unrecognize d section and content) In the event this informatio n is protected by the Federal Confidentiality of Alcohol and Drug Abuse Patient Records regulations: The Federal rules restrict any use of the information to criminally investigate or prosecute any alcohol or drug abuse patient.[facility] the event this information is protected by the Federal Confidentiality of Alcohol and Drug Abuse Patient Records regulations: The Federal rules restrict any use of the information to criminally investigate or prosecute any alcohol or drug abuse patient.[facility] HospitalIn the event this information is protected by the Federal Confidentiality of Alcohol and Drug Abuse Patient Records regulations: The Federal rules restrict any use of the information to criminally investigate or prosecute any alcohol or drug abuse patient.[facility] HospitalIn the event this information is protected by the Federal Confidentiality of Alcohol and Drug Abuse Patient Records regulations: The Federal rules restrict any use of the information to criminally investigate or prosecute any alcohol or drug abuse patient.[facility] HospitalIn the event this information is protected by the Federal Confidentiality of Alcohol and Drug Abuse Patient Records regulations: The Federal rules restrict any use of the information to criminally investigate or prosecute any alcohol or drug abuse patient.[facility] the event this information is protected by the Federal Confidentiality of Alcohol and Drug Abuse Patient Records regulations: The Federal rules restrict any use of the information to criminally investigate or prosecute any alcohol or drug abuse patient.[facility] HospitalIn the event this information is protected by the Federal Confidentiality of Alcohol and Drug Abuse Patient Records regulations: The Federal rules restrict any use of the information to criminally investigate or prosecute any alcohol or drug abuse patient.[facility] HospitalIn the event this information is protected by the Federal Confidentiality of Alcohol and Drug Abuse Patient Records regulations: The Federal rules restrict any use of the information to criminally investigate or prosecute any alcohol or drug abuse patient.[facility] the event this information is protected by the Federal Confidentiality of Alcohol and Drug Abuse Patient Records regulations: The Federal rules restrict any use of the information to criminally investigate or prosecute any alcohol or drug abuse patient.[facility] HospitalIn the event this information is protected by the Federal Confidentiality of Alcohol and Drug Abuse Patient Records regulations: The Federal rules restrict any use of the information to criminally investigate or prosecute any alcohol or drug abuse patient.[facility] HospitalIn the event this information is protected by the Federal Confidentiality of Alcohol and Drug Abuse Patient Records regulations: The Federal rules restrict any use of the information to criminally investigate or prosecute any alcohol or drug abuse patient.[facility] HospitalIn the event this information is protected by the Federal Confidentiality of Alcohol and Drug Abuse Patient Records regulations: The Federal rules restrict any use of the information to criminally investigate or prosecute any alcohol or drug abuse patient.[facility] HospitalIn the event this information is protected by the Federal Confidentiality of Alcohol and Drug Abuse Patient Records regulations: The Federal rules restrict any use of the information to criminally investigate or prosecute any alcohol or drug abuse patient.[facility] HospitalIn the event this information is protected by the Federal Confidentiality of Alcohol and Drug Abuse Patient Records regulations: The Federal rules restrict any use of the information to criminally investigate or prosecute any alcohol or drug abuse patient.[facility] HospitalIn the event this information is protected by the Federal Confidentiality of Alcohol and Drug Abuse Patient Records regulations: The Federal rules restrict any use of the information to criminally investigate or prosecute any alcohol or drug abuse patient.[facility] HospitalIn the event this information is protected by the Federal Confidentiality of Alcohol and Drug Abuse Patient Records regulations: The Federal rules restrict any use of the information to criminally investigate or prosecute any alcohol or drug abuse patient.[facility] HospitalIn the event this information is protected by the Federal Confidentiality of Alcohol and Drug Abuse Patient Records regulations: The Federal rules restrict any use of the information to criminally investigate or prosecute any alcohol or drug abuse patient.[facility] HospitalIn the event this information is protected by the Federal Confidentiality of Alcohol and Drug Abuse Patient Records regulations: The Federal rules restrict any use of the information to criminally investigate or prosecute any alcohol or drug abuse patient.[facility] HospitalIn the event this information is protected by the Federal Confidentiality of Alcohol and Drug Abuse Patient Records regulations: The Federal rules restrict any use of the information to criminally investigate or prosecute any alcohol or drug abuse patient.[facility] HospitalIn the event this information is protected by the Federal Confidentiality of Alcohol and Drug Abuse Patient Records regulations: The Federal rules restrict any use of the information to criminally investigate or prosecute any alcohol or drug abuse patient.[facility] HospitalIn the event this information is protected by the Federal Confidentiality of Alcohol and Drug Abuse Patient Records regulations: The Federal rules restrict any use of the information to criminally investigate or prosecute any alcohol or drug abuse patient.[facility] HospitalIn the event this information is protected by the Federal Confidentiality of Alcohol and Drug Abuse Patient Records regulations: The Federal rules restrict any use of the information to criminally investigate or prosecute any alcohol or drug abuse patient.[facility] HospitalIn the event this information is protected by the Federal Confidentiality of Alcohol and Drug Abuse Patient Records regulations: The Federal rules restrict any use of the information to criminally investigate or prosecute any alcohol or drug abuse patient.[facility] HospitalIn the event this information is protected by the Federal Confidentiality of Alcohol and Drug Abuse Patient Records regulations: The Federal rules restrict any use of the information to criminally investigate or prosecute any alcohol or drug abuse patient.[facility] HospitalIn the event this information is protected by the Federal Confidentiality of Alcohol and Drug Abuse Patient Records regulations: The Federal rules restrict any use of the information to criminally investigate or prosecute any alcohol or drug abuse patient.[facility] HospitalIn the event this information is protected by the Federal Confidentiality of Alcohol and Drug Abuse Patient Records regulations: The Federal rules restrict any use of the information to criminally investigate or prosecute any alcohol or drug abuse patient.[facility] HospitalIn the event this information is protected by the Federal Confidentiality of Alcohol and Drug Abuse Patient Records regulations: The Federal rules restrict any use of the information to criminally investigate or prosecute any alcohol or drug abuse patient.[facility] HospitalIn the event this information is protected by the Federal Confidentiality of Alcohol and Drug Abuse Patient Records regulations: The Federal rules restrict any use of the information to criminally investigate or prosecute any alcohol or drug abuse patient.[facility] HospitalIn the event this information is protected by the Federal Confidentiality of Alcohol and Drug Abuse Patient Records regulations: The Federal rules restrict any use of the information to criminally investigate or prosecute any alcohol or drug abuse patient.[facility] HospitalIn the event this information is protected by the Federal Confidentiality of Alcohol and Drug Abuse Patient Records regulations: The Federal rules restrict any use of the information to criminally investigate or prosecute any alcohol or drug abuse patient.[facility] HospitalIn the event this information is protected by the Federal Confidentiality of Alcohol and Drug Abuse Patient Records regulations: The Federal rules restrict any use of the information to criminally investigate or prosecute any alcohol or drug abuse patient.[facility] HospitalIn the event this information is protected by the Federal Confidentiality of Alcohol and Drug Abuse Patient Records regulations: The Federal rules restrict any use of the information to criminally investigate or prosecute any alcohol or drug abuse patient.[facility] HospitalIn the event this information is protected by the Federal Confidentiality of Alcohol and Drug Abuse Patient Records regulations: The Federal rules restrict any use of the information to criminally investigate or prosecute any alcohol or drug abuse patient.[facility] HospitalIn the event this information is protected by the Federal Confidentiality of Alcohol and Drug Abuse Patient Records regulations: The Federal rules restrict any use of the information to criminally investigate or prosecute any alcohol or drug abuse patient.[facility] HospitalIn the event this information is protected by the Federal Confidentiality of Alcohol and Drug Abuse Patient Records regulations: The Federal rules restrict any use of the information to criminally investigate or prosecute any alcohol or drug abuse patient.[facility] HospitalIn the event this information is protected by the Federal Confidentiality of Alcohol and Drug Abuse Patient Records regulations: The Federal rules restrict any use of the information to criminally investigate or prosecute any alcohol or drug abuse patient.[facility] HospitalIn the event this information is protected by the Federal Confidentiality of Alcohol and Drug Abuse Patient Records regulations: The Federal rules restrict any use of the information to criminally investigate or prosecute any alcohol or drug abuse patient.[facility] HospitalIn the event this information is protected by the Federal Confidentiality of Alcohol and Drug Abuse Patient Records regulations: The Federal rules restrict any use of the information to criminally investigate or prosecute any alcohol or drug abuse patient.[facility] HospitalIn the event this information is protected by the Federal Confidentiality of Alcohol and Drug Abuse Patient Records regulations: The Federal rules restrict any use of the information to criminally investigate or prosecute any alcohol or drug abuse patient.[facility] HospitalIn the event this information is protected by the Federal Confidentiality of Alcohol and Drug Abuse Patient Records regulations: The Federal rules restrict any use of the information to criminally investigate or prosecute any alcohol or drug abuse patient.[facility] HospitalIn the event this information is protected by the Federal Confidentiality of Alcohol and Drug Abuse Patient Records regulations: The Federal rules restrict any use of the information to criminally investigate or prosecute any alcohol or drug abuse patient.[facility] HospitalIn the event this information is protected by the Federal Confidentiality of Alcohol and Drug Abuse Patient Records regulations: The Federal rules restrict any use of the information to criminally investigate or prosecute any alcohol or drug abuse patient.[facility] HospitalIn the event this information is protected by the Federal Confidentiality of Alcohol and Drug Abuse Patient Records regulations: The Federal rules restrict any use of the information to criminally investigate or prosecute any alcohol or drug abuse patient.[facility] HospitalIn the event this information is protected by the Federal Confidentiality of Alcohol and Drug Abuse Patient Records regulations: The Federal rules restrict any use of the information to criminally investigate or prosecute any alcohol or drug abuse patient.[facility] HospitalIn the event this information is protected by the Federal Confidentiality of Alcohol and Drug Abuse Patient Records regulations: The Federal rules restrict any use of the information to criminally investigate or prosecute any alcohol or drug abuse patient.[facility] HospitalIn the event this information is protected by the Federal Confidentiality of Alcohol and Drug Abuse Patient Records regulations: The Federal rules restrict any use of the information to criminally investigate or prosecute any alcohol or drug abuse patient.[facility] HospitalIn the event this information is protected by the Federal Confidentiality of Alcohol and Drug Abuse Patient Records regulations: The Federal rules restrict any use of the information to criminally investigate or prosecute any alcohol or drug abuse patient.[facility] HospitalIn the event this information is protected by the Federal Confidentiality of Alcohol and Drug Abuse Patient Records regulations: The Federal rules restrict any use of the information to criminally investigate or prosecute any alcohol or drug abuse patient.[facility] HospitalIn the event this information is protected by the Federal Confidentiality of Alcohol and Drug Abuse Patient Records regulations: The Federal rules restrict any use of the information to criminally investigate or prosecute any alcohol or drug abuse patient.[facility] HospitalIn the event this information is protected by the Federal Confidentiality of Alcohol and Drug Abuse Patient Records regulations: The Federal rules restrict any use of the information to criminally investigate or prosecute any alcohol or drug abuse patient.[facility] HospitalIn the event this information is protected by the Federal Confidentiality of Alcohol and Drug Abuse Patient Records regulations: The Federal rules restrict any use of the information to criminally investigate or prosecute any alcohol or drug abuse patient.[facility] HospitalIn the event this information is protected by the Federal Confidentiality of Alcohol and Drug Abuse Patient Records regulations: The Federal rules restrict any use of the information to criminally investigate or prosecute any alcohol or drug abuse patient.[facility] HospitalIn the event this information is protected by the Federal Confidentiality of Alcohol and Drug Abuse Patient Records regulations: The Federal rules restrict any use of the information to criminally investigate or prosecute any alcohol or drug abuse patient.[facility] HospitalIn the event this information is protected by the Federal Confidentiality of Alcohol and Drug Abuse Patient Records regulations: The Federal rules restrict any use of the information to criminally investigate or prosecute any alcohol or drug abuse patient.[facility] HospitalIn the event this information is protected by the Federal Confidentiality of Alcohol and Drug Abuse Patient Records regulations: The Federal rules restrict any use of the information to criminally investigate or prosecute any alcohol or drug abuse patient.[facility] the event this information is protected by the Federal Confidentiality of Alcohol and Drug Abuse Patient Records regulations: The Federal rules restrict any use of the information to criminally investigate or prosecute any alcohol or drug abuse patient.[facility] HospitalIn the event this information is protected by the Federal Confidentiality of Alcohol and Drug Abuse Patient Records regulations: The Federal rules restrict any use of the information to criminally investigate or prosecute any alcohol or drug abuse patient.[facility] HospitalIn the event this information is protected by the Federal Confidentiality of Alcohol and Drug Abuse Patient Records regulations: The Federal rules restrict any use of the information to criminally investigate or prosecute any alcohol or drug abuse patient.[facility] ClinicIn the event this information is protected by the Federal Confidentiality of Alcohol and Drug Abuse Patient Records regulations: The Federal rules restrict any use of the information to criminally investigate or prosecute any alcohol or drug abuse patient.[facility] HospitalIn the event this information is protected by the Federal Confidentiality of Alcohol and Drug Abuse Patient Records regulations: The Federal rules restrict any use of the information to criminally investigate or prosecute any alcohol or drug abuse patient.[facility] HospitalIn the event this information is protected by the Federal Confidentiality of Alcohol and Drug Abuse Patient Records regulations: The Federal rules restrict any use of the information to criminally investigate or prosecute any alcohol or drug abuse patient.[facility] HospitalIn the event this information is protected by the Federal Confidentiality of Alcohol and Drug Abuse Patient Records regulations: The Federal rules restrict any use of the information to criminally investigate or prosecute any alcohol or drug abuse patient.[facility] HospitalIn the event this information is protected by the Federal Confidentiality of Alcohol and Drug Abuse Patient Records regulations: The Federal rules restrict any use of the information to criminally investigate or prosecute any alcohol or drug abuse patient.[facility] HospitalIn the event this information is protected by the Federal Confidentiality of Alcohol and Drug Abuse Patient Records regulations: The Federal rules restrict any use of the information to criminally investigate or prosecute any alcohol or drug abuse patient.[facility] HospitalIn the event this information is protected by the Federal Confidentiality of Alcohol and Drug Abuse Patient Records regulations: The Federal rules restrict any use of the information to criminally investigate or prosecute any alcohol or drug abuse patient.[facility] HospitalIn the event this information is protected by the Federal Confidentiality of Alcohol and Drug Abuse Patient Records regulations: The Federal rules restrict any use of the information to criminally investigate or prosecute any alcohol or drug abuse patient.[facility] HospitalIn the event this information is protected by the Federal Confidentiality of Alcohol and Drug Abuse Patient Records regulations: The Federal rules restrict any use of the information to criminally investigate or prosecute any alcohol or drug abuse patient.[facility] HospitalIn the event this information is protected by the Federal Confidentiality of Alcohol and Drug Abuse Patient Records regulations: The Federal rules restrict any use of the information to criminally investigate or prosecute any alcohol or drug abuse patient.[facility] HospitalIn the event this information is protected by the Federal Confidentiality of Alcohol and Drug Abuse Patient Records regulations: The Federal rules restrict any use of the information to criminally investigate or prosecute any alcohol or drug abuse patient.[facility] HospitalIn the event this information is protected by the Federal Confidentiality of Alcohol and Drug Abuse Patient Records regulations: The Federal rules restrict any use of the information to criminally investigate or prosecute any alcohol or drug abuse patient.[facility] HospitalIn the event this information is protected by the Federal Confidentiality of Alcohol and Drug Abuse Patient Records regulations: The Federal rules restrict any use of the information to criminally investigate or prosecute any alcohol or drug abuse patient.[facility] HospitalIn the event this information is protected by the Federal Confidentiality of Alcohol and Drug Abuse Patient Records regulations: The Federal rules restrict any use of the information to criminally investigate or prosecute any alcohol or drug abuse patient.[facility] HospitalIn the event this information is protected by the Federal Confidentiality of Alcohol and Drug Abuse Patient Records regulations: The Federal rules restrict any use of the information to criminally investigate or prosecute any alcohol or drug abuse patient.[facility] HospitalIn the event this information is protected by the Federal Confidentiality of Alcohol and Drug Abuse Patient Records regulations: The Federal rules restrict any use of the information to criminally investigate or prosecute any alcohol or drug abuse patient.[facility] HospitalIn the event this information is protected by the Federal Confidentiality of Alcohol and Drug Abuse Patient Records regulations: The Federal rules restrict any use of the information to criminally investigate or prosecute any alcohol or drug abuse patient.[facility] HospitalIn the event this information is protected by the Federal Confidentiality of Alcohol and Drug Abuse Patient Records regulations: The Federal rules restrict any use of the information to criminally investigate or prosecute any alcohol or drug abuse patient.[facility] Hospital[facility] the event this information is protected by the Federal Confidentiality of Alcohol and Drug Abuse Patient Records regulations: The Federal rules restrict any use of the information to criminally investigate or prosecute any alcohol or drug abuse patient.[facility] Hospital[facility] the event this information is protected by the Federal Confidentiality of Alcohol and Drug Abuse Patient Records regulations: The Federal rules restrict any use of the information to criminally investigate or prosecute any alcohol or drug abuse patient.[facility] Care Teams (unrecognized sec tion and content) Head Knitting Machine Fixer Relationship Specialty Start Date End Date Justus Mcdonald MD [address] [place] [address] PCP - General Family Practice 09/30/18 Head Knitting Machine Fixer Relationship Specialty Start Date End Date Justus Mcdonald MD [address] [place] [address] PCP - General Family Practice 09/30/18 Head Knitting Machine Fixer Relationship Specialty Start Date End Date Justus Mcdonald MD [address] [place] [address] PCP - General Family Practice 09/30/18 Head Knitting Machine Fixer Relationship Specialty Start Date End Date Justus Mcdonald MD [address] [place] [address] [place] [address] PCP - General Family Practice 09/30/18 Head Knitting Machine Fixer Relationship Specialty Start Date End Date Justus Mcdonald MD [address] [place] [address] PCP - General Family Practice 09/30/18 Head Knitting Machine Fixer Relationship Specialty Start Date End Date Justus Mcdonald MD [address] [place] [address] [place] [address] PCP - General Family Practice 09/30/18 Head Knitting Machine Fixer Relationship Specialty Start Date End Date Justus Mcdonald MD [address] [place] [address] PCP - General Family Practice 09/30/18 Head Knitting Machine Fixer Relationship Specialty Start Date End Date Justus Mcdonald MD [address] [facility] [place] [address] PCP - General Family Medicine 09/30/18 Head Knitting Machine Fixer Relationship Specialty Start Date End Date Justus Mcdonald MD [address] [facility] [place] [address] PCP - General Family Medicine 09/30/18 Head Knitting Machine Fixer Relationship Specialty Start Date End Date Justus Mcdonald MD [address] [facility] [place] [address] PCP - General Family Medicine 09/30/18 Head Knitting Machine Fixer Relationship Specialty Start Date End Date Justus Mcdonald MD [address] [facility] [place] [address] PCP - General Family Medicine 09/30/18 Head Knitting Machine Fixer Relationship Specialty Start Date End Date Justus Mcdonald MD [address] [facility] [place] [address] PCP - General Family Medicine 09/30/18 Head Knitting Machine Fixer Relationship Specialty Start Date End Date Justus Mcdonald MD [address] [facility] [place] [address] PCP - General Family Medicine 09/30/18 Head Knitting Machine Fixer Relationship Specialty Start Date End Date Justus Mcdonald MD [address] [facility] [place] [address] PCP - General Family Medicine 09/30/18 Head Knitting Machine Fixer Relationship Specialty Start Date End Date Justus Mcdonald MD [address] [facility] [place] [address] PCP - General Family Medicine 09/30/18 Head Knitting Machine Fixer Relationship Specialty Start Date End Date Justus Mcdonald MD [address] [facility] [place] [address] PCP - General Family Medicine 09/30/18 Head Knitting Machine Fixer Relationship Specialty Start Date End Date Justus Mcdonald MD [address] [facility] [place] [address] PCP - General Family Medicine 09/30/18 Pearl Segundo MD [address] [place] [address] Oncology 01/29/23 Head Knitting Machine Fixer Relationship Specialty Start Date End Date Justus Mcdonald MD [address] [facility] [place] [address] PCP - General Family Medicine 09/30/18 Pearl Segundo MD [address] [place] [address] Oncology 01/29/23 Head Knitting Machine Fixer Relationship Specialty Start Date End Date Justus Mcdonald MD [address] [facility] [place] [address] PCP - General Family Medicine 09/30/18 Pearl Segundo MD [address] [place] [address] Oncology 01/29/23 Head Knitting Machine Fixer Relationship Specialty Start Date End Date Justus Mcdonald MD [address] [facility] [place] [address] PCP - General Family Medicine 09/30/18 Pearl Segundo MD [address] [place] [address] Oncology 01/29/23 Head Knitting Machine Fixer Relationship Specialty Start Date End Date Justus Mcdonald MD [address] [facility] [place] [address] PCP - General Family Medicine 09/30/18 Pearl Segundo MD [address] [place] [address] Oncology 01/29/23 Head Knitting Machine Fixer Relationship Specialty Start Date End Date Justus Mcdonald MD [address] [facility] [place] [address] PCP - General Family Medicine 09/30/18 Pearl Segundo MD [address] [place] [address] Oncology 01/29/23 Head Knitting Machine Fixer Relationship Specialty Start Date End Date Justus Mcdonald MD [address] [facility] [place] [address] PCP - General Family Medicine 09/30/18 Pearl Segundo MD [address] [place] [address] Oncology 01/29/23 Head Knitting Machine Fixer Relationship Specialty Start Date End Date Justus Mcdonald MD [address] [facility] [place] [address] PCP - General Family Medicine 09/30/18 Head Knitting Machine Fixer Relationship Specialty Start Date End Date Justus Mcdonald MD [address] [facility] [place] [address] PCP - General Family Medicine 09/30/18 Head Knitting Machine Fixer Relationship Specialty Start Date End Date Justus Mcdonald MD [address] [facility] [place] [address] PCP - General Family Medicine 09/30/18 Head Knitting Machine Fixer Relationship Specialty Start Date End Date Justus Mcdonald MD [address] [facility] [place] [address] PCP - General Family Medicine 09/30/18 Head Knitting Machine Fixer Relationship Specialty Start Date End Date Justus Mcdonald MD [address] [facility] [place] [address] PCP - General Family Medicine 09/30/18 Head Knitting Machine Fixer Relationship Specialty Start Date End Date Justus Mcdonald MD [address] [place] [address] PCP - General Family Medicine 09/30/18 Head Knitting Machine Fixer Relationship Specialty Start Date End Date Justus Mcdonald MD [address] [place] [address] PCP - General Family Medicine 09/30/18 Head Knitting Machine Fixer Relationship Specialty Start Date End Date Justus Mcdonald MD [address] [place] [address] PCP - General Family Medicine 09/30/18 Head Knitting Machine Fixer Relationship Specialty Start Date End Date Justus Mcdonald MD [address] [place] [address] PCP - General Family Medicine 09/30/18 Head Knitting Machine Fixer Relationship Specialty Start Date End Date Justus Mcdonald MD [address] [place] [address] PCP - General Family Medicine 09/30/18 Head Knitting Machine Fixer Relationship Specialty Start Date End Date Justus Mcdonald MD [address] [place] [address] PCP - General Family Medicine 09/30/18 Head Knitting Machine Fixer Relationship Specialty Start Date End Date Justus Mcdonald MD [address] [place] [address] PCP - General Family Medicine 09/30/18 Head Knitting Machine Fixer Relationship Specialty Start Date End Date Justus Mcdonald MD [address] [place], [place] [address] PCP - General Family Medicine 09/30/18 Head Knitting Machine Fixer Relationship Specialty Start Date End Date Justus Mcdonald MD [address] [place], [place] [address] PCP - General Family Medicine 09/30/18 Head Knitting Machine Fixer Relationship Specialty Start Date End Date Justus Mcdonald MD [address] [place], [place] [address] PCP - General Family Medicine 09/30/18 Pearl Segundo MD [address], [place] [address] Oncology 01/29/23 03/07/23 Head Knitting Machine Fixer Relationship Specialty Start Date End Date Justus Mcdonald MD [address] [place], [place] [address] PCP - General Family Medicine 09/30/18 Head Knitting Machine Fixer Relationship Specialty Start Date End Date Justus Mcdonald MD [address] [place], [place] [address] PCP - General Family Medicine 09/30/18 Head Knitting Machine Fixer Relationship Specialty Start Date End Date Justus Mcdonald MD [address] [place], [place] [address]406[address] PCP - General Family Medicine 09/30/18 Head Knitting Machine Fixer Relationship Specialty Start Date End Date Justus Mcdonald MD [address] [place], [place] [address] PCP - General Family Medicine 09/30/18 Head Knitting Machine Fixer Relationship Specialty Start Date End Date Justus Mcdonald MD [address] [facility] [place], [place] [address] PCP - General Family Medicine 09/30/18 Head Knitting Machine Fixer Relationship Specialty Start Date End Date Justus Mcdonald MD [address] [facility] [place], [place] [address] PCP - General Family Medicine 09/30/18 Head Knitting Machine Fixer Relationship Specialty Start Date End Date Justus Mcdonald MD [address] [place] [address] PCP - General Family Medicine 09/30/18 Head Knitting Machine Fixer Relationship Specialty Start Date End Date Justus Mcdonald MD [address] [place] [address] PCP - General Family Medicine 09/30/18 Head Knitting Machine Fixer Relationship Specialty Start Date End Date Justus Mcdonald MD [address] [facility] [place] [address] PCP - General Family Medicine 09/30/18 Head Knitting Machine Fixer Relationship Specialty Start Date End Date Justus Mcdonald MD [address] [facility] [place] [address] PCP - General Family Medicine 09/30/18 Amber Lenz APRN.DATER ASSEMBLER [address] [facility] [place] [address] Salon Supervisor Family Medicine 10/19/24 Arlet Gorve APRN.DATER ASSEMBLER [address] [facility] [place] [address] Salon Supervisor Family Medicine 10/19/24 Head Knitting Machine Fixer Relationship Specialty Start Date End Date Justus Mcdonald MD [address] [facility] [place] [address] PCP - General Family Medicine 09/30/18 Amber Lenz APRN.DATER ASSEMBLER [address] [facility] [place] [address] Salon Supervisor Family Medicine 10/19/24 Arlet Grove APRN.DATER ASSEMBLER [address] [facility] [place] [address] Salon Supervisor Family Medicine 10/19/24 Head Knitting Machine Fixer Relationship Specialty Start Date End Date Justus Mcdonald MD [address] [facility] [place] [address] PCP - General Family Medicine 09/30/18 Amber Lenz SALES SUPPORT REP.DATER ASSEMBLER [address] [facility] [place] [address] Salon Supervisor Family Medicine 10/19/24 Ar[place] SALES SUPPORT REP.DATER ASSEMBLER [address] [facility] [place] [address] Salon Supervisor Family Medicine 10/19/24 Head Knitting Machine Fixer Relationship Specialty Start Date End Date Justus Mcdonald MD [address] [facility] [place] [address] PCP - General Family Medicine 09/30/18 Amber Lenz APRN.DATER ASSEMBLER [address] [facility] [place] [address] Salon Supervisor Family Medicine 10/19/24 [place] SALES SUPPORT REP.DATER ASSEMBLER [address] [facility] [place] [address] [facility]24 Team Status: Active Member Role Status Dates Dr. Justus Mcdonald MD Primary Care Provider Active Team Status: Inactive Member Role Status Dates Dr. Justus Mcdonald MD Primary Care Provider Active Start: March 29, 2025 End: March 29, 2025 Dr. Mango Leone MD Emergency Provider Active S tart: March 29, 2025 End: March 29, 2025 Head Knitting Machine Fixer Relationship Specialty Start Date End Date Justus Mcdonald MD [address] [facility] [place], [place] [address] PCP - General Family Medicine 09/30/18 Amber Lenz APRN.DATER ASSEMBLER [address] [facility] [place] [address] [facility] 10/19/24 [place] SALES SUPPORT REP.DATER ASSEMBLER [address] [facility] [place] [address] [facility] 10/19/24 Head Knitting Machine Fixer Relationship Specialty Start Date End Date Justus Mcdonald MD [address] [facility] [place], [place] [address] PCP - General Family Medicine 09/30/18 Amber Lenz SALES SUPPORT REP.DATER ASSEMBLER [address] [facility] [place] [address] [facility] 10/19/24 [place] APRN.DATER ASSEMBLER [address] [facility] [place] [address] [facility] 10/19/24 Head Knitting Machine Fixer Relationship Specialty Start Date End Date Justus Mcdonald MD [address] [place], [place] [address] PCP - General Family Medicine 09/30/18 Amber Lenz APRN.DATER ASSEMBLER [address] [place], [place] [address] Salon Supervisor [facility] 10/19/24 Arlet Groev APRN.DATER ASSEMBLER [address] [place], [place] [address] Salon Supervisor [facility] 10/19/24 Team Status: Active Member Role/Relationship Status Dates Dr. Justus Mcdonald MD Primary Care Provider Active Team Status: Inactive Member Role/Relationship Status Dates Dr. Justus Mcdonald MD Primary Care Provider Active Start: March 29, 2025 End: March 29, 2025 Dr. Mango Leone MD Attending Provider Active S tart: March 29, 2025 End: March 29, 2025 Dr. Mango Leone MD Emergency Provider Active S tart: March 29, 2025 End: March 29, 2025 Team Status: Inactive Member Role/Relationship Status Dates Dr. Justus Mcdonald MD Primary Care Provider Active Start: July 07, 2025 End: July 07, 2025 Dr. Fausto Johnston DO Emergency Provider Active Start : July 07, 2025 End: July 07, 2025 Reason for Visit (unrecogniz ed section and content) Reason Comments New Patient Evaluation Specialty Diagnoses / Procedures Referred By Taryn t Referred To Contact Neurology Diagnoses Headache, unspecified headache type Vertigo Procedures CONSULT TO NEUROLOGY OFFICE/OUTPATIENT NEW HIGH MDM 60-74 MINUTES Justus Mcdonald MD [address] [place] [address] Referral ID Status Reason Start Date Expiration Date V isits Requested Visits Authorized [id number] Closed PCP Requested Referral 05/31/2023 05/30/2024 1 1 Reason Comments Medication Follow-up needs refill of phe nergan. Symptoms are all the same as before. Is still having burning in mid upper abdomen and taking Tums on daily. Abdominal Pain with pressure mid up per abdomen Reason Onset Date Comments Refill Request 01/29/2022 Reason Comments Medication Problem Reason Comments Insurance Authorization Reason Onset Date Comments Refill Request 01/31/2022 Reason Comments Refill Request Reason Comments Medication Request Reason Onset Date Comments Refill Request 08/07/2022 Reason Onset Date Comments Refill Request 10/17/2022 Reason Comments JUAN J Parra patient- [place] [facility]- refills needed Reason Onset Date Comments Refill Request 12/03/2022 Reason Comments Right Knee Pain Reason Comments PT Eval Specialty Diagnoses / Procedures Referred By Contac t Referred To Contact [facility] Diagnoses Acute pain of right knee Procedures CONSULT TO PHYSICAL THERAPY PHYSICAL THERAPY EVALUATION HIGH COMPLEX 45 MINS Amber Lenz, VALERI.DATER ASSEMBLER [address] [place] [address] [facility] [place] [address] [place] [address] Referral ID Status Reason Start Date Expiration Date V isits Requested Visits Authorized [id number] Closed Auto-Generate d Referral 12/03/2022 02/08/2023 1 1 Reason Comments Results Reason Comments Non-Chemotherapy Treatment Specialty Diagnoses / Procedures Referred By Contac t Referred To Contact Diagnoses Iron deficiency anemia due to chronic blood loss Procedures IRON SUCROSE INJECTION PER 1 MG Pearl Segundo MD [address] [place] [address] [facility] [address] [place] [address] Referral ID Status Reason Start Date Expiration Date V isits Requested Visits Authorized [id number] Authorized 01/29/2023 04/29/2023 5 5 Reason Onset Date Comments Refill Request 02/15/2023 Reason Comments Dental office calling for a medical cecelia jiménez Pt is there now for extraction Reason Comments Established Patient Reason Comments Back Pain R sided mid back patrick n radiating across and up to neck x6 days Reason Comments Appointment Reason Comments Patient Update Reason Comments Headache Anxiety Reason Comments MRI Brain appeal Reason Comments Insurance Authorization [facility] Reason Comments Patient Update Letter needs sent th is am Reason Comments 6 Month Exam Reason Comments Results Reason Comments Sinus congestion Cough, ears plugged Reason Comments Patient Question Reason Comments Medical Clearance Reason Comments 04/18/2023 colon/egd asc Reason Comments Follow Up Reason Comments Sinus Problem Pressure and pain, c ough, nasal congestsion x 1 dayHad body aches x tueday Reason Comments mdication problem Reason Comments black stools Reason Comments Change In Bowel Habits Reason Comments Recheck 2 week follow up Reason Onset Date Comments Refill Request 07/29/2024 Reason Comments Radiology XR Specialty Diagnoses / Procedures Referred By Contac t Referred To Contact Diagnoses FAP Procedures [place] [address] Referral ID Status Reason Start Date Expiration Date Visits Requested Visits Authorized [id number] Authorized Patient Cleared - Qualified HCAP/501/FA Referred for RAMBO 4 11/26/2024 99 99 Reason Comments Sore Throat Cough, runny nose, b shawn aches/chills, + covid x 3 days Reason Onset Date Comments Patient Left Without Being Seen 09/18/2024 Reason Comments Cough Cough, chest congest ion and bodyaches x 4 days Reason Comments Cough x over 2 weeks Reason Comments Cough Follow up from expre care Specialty Diagnoses / Procedures Referred By Contac t Referred To Contact Diagnoses MEDICALLY NECESSARY SERVICES Procedures MEDICALLY NECESSARY SERVICES Justus Mcdonald MD [address] [place] [address] Phone: tel: fax: [place] [address] Referral ID Status Reason Start Date Expiration Date Visits Requested Visits Authorized [id number] Authorized Patient Cleared - Qualified 100% FAS 01/06/2025 04/06/2025 99 99 Reason Onset Date Comments Refill Request 03/02/2025 Reason Comments Letter Reason Comments Forms Reason Onset Date Comments Refill Request 06/07/2025 Reason Comments left leg pain Left thigh has felt aching for about 1 week. Feels bruised but no visible bruise. Starting to hurt to touch. No injury. No edema or warmth. Known clotting disorder. Reason Onset Date Comments Refill Request 07/08/2025 Goals (unrecognized section and content) Goals may be documented in a n alternate sectionGoals may be documented in an alternate section FOR RECORDS PERTAINING TO PATIENTS WHO ARE OR HAVE BEEN ENROLLED IN A CHEMICAL DEPENDENCY/SUBSTANCEABUSE PROGRAM, SOME INFORMATION MAY BE OMITTED. This clinical summary was aggregated from multiple sources. Caution should be exercised in using it in the provision of clinical care. This summary normalizes information from multiple sources, and as a consequence, information in this document may materially change the coding, format and clinical context of patient data. In addition, data may be omitted in some cases. CLINICAL DECISIONS SHOULD BE BASED ON THE PRIMARY CLINICAL RECORDS. [facility] [employer] [facility]. provides no warranty or guarantee of the accuracy or completeness of information in this document.
[2025-07-17 21:31] LABS: AST(SGOT) 24 U/L (<=31); Alanine Aminotransfer ALT/SGPT 17 U/L (<=34); Albumin, Serum 4.6 g/dL (3.5-5.0); Alkaline Phosphatase 68 U/L (35-104); Anion Gap 13 (5-15); BUN 15 mg/dL (4-19); BUN/Creat Ratio 13.9 RATIO (10-20); Calcium,Total 10.2 mg/dL (7.6-11.0); Carbon Dioxide 20.2 mmol/L (21.0-32.0); Chloride 106 mmol/L (98-108); Estimated Creatinine Clearance 53.40 ml/min (50-250); Globulin 2.7 g/dL (2.2-4.2); Glucose 147 mg/dL (70-99); Lipase 44 U/L (13-75); Potassium 3.5 mmol/L (3.3-5.1)
[2025-07-17 21:44] LABS: Alcohol, Blood (Medical)-Serum < 10.1 mg/dL (<=10.0)
[2025-07-17 22:33] LABS: Mucous, Urine 0 SEEN /hpf (<or=2+); Squamous Epithelial Cells - UA 0 SEEN /hpf (5-10)
[2025-07-17 22:36] LABS: Color, Urine Yellow (Yellow); Glucose, Dipstick Normal (Normal); Ketone-Dipstick Negative (Negative); Leukocyte Esterase-Dipstick Negative /ul (Negative); Nitrite-Dipstick Negative (Negative); Occult Blood-Urine Negative /ul (Negative); Protein-Dipstick 30 mg/dl (Negative); Specific Gravity, Urine 1.010 (1.002-1.030); Urine Bilirubin Dipstick Negative (Negative)
[2025-07-17 22:42] VITALS: BP 102/59; PULSE 91; RESP 14; O2SAT 99
[2025-07-17 22:53] LABS: Red Blood Cells-Urine 0-5 SEEN /hpf (0-5)
--- NOTE | 2025-07-17 23:07 | PCM.HP.STD ---
HPI - General General Date of Admission: 07/17/25 Date of Service: 07/17/25 Chief Complaint: Abd pain, N, vertigo, headache. HPI Narrative The patient is a 54 y/o F w/ PMHx: Chronic migraines, Factor V Heterozygous mutation, GERD, HLD, Anxiety and Depression, CKD stage II per GFR trending who presents to the [facility] ED on 07/17/2025 with history of onset of dizziness at approximately 5 AM early in the morning when she was first getting up with spinning sensation with associated nausea but no emesis quickly passing as she laid down for 10 minutes with onset at midday upper abdominal pain and right upper quadrant discomfort with nausea but no emesis rating it is severe, sharp and aching 10 out of 10 prompting her to eventually lay back down at that time she had recurrent vertiginous type symptoms with decision to present to the ED for further evaluation. Patient notes during the day she did have a front heavy throbbing headache rating it mild to moderate with light sensitivity with no sound sensitivity similar to her chronic previous headaches. She denies ever having had vertiginous symptoms before. She denies any recent URI type illnesses but does states she has chronic sinus issues especially during the season. Patient ED evaluation with positive Yani-Hallpike maneuver with head turn to the left with horizontal nystagmus that was fatigable with fast component to the left side of note. Workup in the ED included T97.8, heart rate 107, BP 127/61, respiratory rate 26, 100% on room air with most recent repeat vitals heart rate 91, BP 102/59, respiratory rate 14, 99% on room air, CBC with WC 9.4, hemoglobin 15.1, platelets 261 with no marked shift, CMP with carbon oxide 20.2, BUN/creatinine 15/1.04, GFR 64, glucose 147, hepatic profile unremarkable, lipase 44, urinalysis unremarkable, ethyl alcohol less than 10.1, CT brain with no acute intracranial findings, CT abdomen and pelvis with IV contrast with appearance of gallbladder suspicious for mild cholecystitis, very small hepatic lesions too small to further characterize but similar to prior. In the ED patient ministered Toradol 15 mg IV x 1, meclizine 25 mg p.o. x 1, Reglan 5 mg IV x 1 as well as maintenance IV fluids. ED physician did discuss case with general surgeon Dr. Stern regarding findings on [facility] Medical History Chronic abdominal pain Chronic migraine GERD (gastroesophageal reflux disease) CKD (chronic kidney disease), stage II Anxiety and depression Factor 5 Leiden mutation, heterozygous Hyperlipidemia Home Medications ?Medication ?Instructions ?Recorded ?Last Taken ?Type pantoprazole 40 mg tablet,delayed 40 mg PO DAILY #30 tabs 10/10/16 07/17/25 Rx release ondansetron 4 mg disintegrating 4 mg PO Q8H PRN nausea and 05/15/21 07/17/25 Rx tablet vomiting #10 tabs ondansetron 4 mg disintegrating 4 mg PO Q6H PRN nausea and 03/29/25 Unknown Rx tablet vomiting #7 tabs fluoxetine 40 mg capsule 40 mg PO DAILY 07/07/25 07/17/25 History hydroxyzine HCl 10 mg tablet 10 - 20 mg PO TID PRN PRN anxiety 07/07/25 Unknown History rimegepant 75 mg disintegrating 75 mg PO QODAY 07/07/25 Unknown History tablet (Nurtec ODT) rosuvastatin 5 mg tablet 5 mg PO DAILY 07/07/25 07/17/25 History topiramate 100 mg tablet 100 mg PO BID 07/07/25 Unknown History Allergy/AdvReac Type Severity Reaction Status Date / Time latex Allergy Rash Verified 07/17/25 20:35 Penicillins Allergy Other Verified 07/17/25 20:35 acetaminophen (From Tylenol) AdvReac Nausea Verified 07/17/25 20:35 naproxen (From Aleve) AdvReac Nausea/Vom/ Verified 07/17/25 20:35 Diarrhea Family History Mother Diabetes Heart disease Grandmother Cervical cancer Father , from [place] when patient was 8 years old. CAD (coronary artery disease) Heart disease Hypertension Myocardial infarction Surgical History H/O neck surgery S/P S/P hysterectomy Social History household members: none Smoking Status: Never smoker alcohol intake: current alcohol intake frequency: holidays/special occasions only substance use type: does not use caffeine: Yes what type of physical activity do you participate in: none seatbelt use: sometimes do you feel safe at home: Yes 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 [employer] Narrative Admission Review of Systems: CONSTITUTIONAL: No weight loss, fever, chills, + weakness or fatigue. HEENT: + Headache, vertiginous symptoms, chronic migraines, acute on chronic. Eyes: No visual loss, blurred vision, double vision or yellow sclerae. Ears, Nose, Throat: No hearing loss, sneezing, congestion, runny nose or sore throat. SKIN: No rash or itching, lesions, wounds. CARDIOVASCULAR: No chest pain, chest pressure or chest discomfort, palpitations, edema, orthopnea, syncopal events. RESPIRATORY: No shortness of breath, cough or sputum, wheezing, hemoptysis. GASTROINTESTINAL: + anorexia, nausea without emesis, bout of loose stools, abdominal pain. No melena, BRBPR. GENITOURINARY: No dysuria, frequency, urgency or retention. NEUROLOGICAL: + Chronic migraines, acute on chronic, vertiginous symptoms. No syncope, paralysis, ataxia, numbness or tingling in the extremities, focal weakness, change in bowel or bladder control, seizure. MUSCULOSKELETAL: + muscle, back pain, joint pain or stiffness. HEMATOLOGIC: No anemia, bleeding or bruising. LYMPHATICS: No enlarged nodes. No history of splenectomy. PSYCHIATRIC: + History of anxiety and depression. ENDOCRINOLOGIC: No reports of sweating, cold or heat intolerance. No polyuria or polydipsia. ALLERGIES: No history of asthma, hives, eczema or rhinitis. Vital Signs Vital Signs Vital Signs: 07/17/25 20:26 07/17/25 22:42 Temperature 97.8 F Temperature Source Oral Pulse Rate 107 H 91 Respiratory Rate 26 H 14 Blood Pressure 127/61 H 102/59 L Blood Pressure Mean 83 73 Pulse Ox 100 99 Oxygen Delivery Method Room Air Room Air Weight Weight: 142 lb 6.698 oz Body Mass Index (BMI) 24.4 Physical Exam Narrative Physical Examination: General: Awake, alert, oriented x 3 and cooperative, laying upright in the ED bed, still mild frontal headache but notes it is improving, mild light sensitivity but no sound sensitivity, currently abdominal pain abated. Skin: Normal color, normal turgor, no icterus, no cyanosis except occasional stage ecchymoses, abrasion. HEENT: AT/NC, EOMI, PERRLA, mildly dry MM, no carotid bruits or JVD noted. Lungs: CTA bilaterally, moderate effort, mild decrease BL bases, no rales, ronchi or wheezing. Heart: Regular rate and rhythm; no gallop, rub audible. Abdomen: Soft, no reproducible abdominal discomfort with stethoscope or manual palpation, no obvious distention, mildly hyperactive BS, no appreciated HSM. Extremities: No cyanosis, clubbing, or edema. Neurological: Patient awake, alert, oriented as noted, cognitive function intact; pupils equally reactive to light and accommodation, cranial nerves grossly normal, moving all 4 extremities, no focal deficits, strength preserved, currently vertigo is resolved however in the ED upon initial presentation she did have a positive Yani-Hallpike maneuver with head turn to the left with horizontal nystagmus that was fatigable with fast component to the left side of note. Psychiatric: Affect appears fatigued, no acute evidence of depressive or anxiety feelings but does have underlying history. Results Lab / Micro Data 07/17/25 21:03 07/17/25 21:03 Labs: Laboratory Results - last 24 hr 07/17/25 21:03: WBC 9.4, RBC 5.10, Hgb 15.1 H, Hct 44.0, MCV 86.3, MCH 29.6, MCHC 34.3, RDW Std Deviation 40.4, RDW Coeff of Marcie 12.8, Plt Count 261, MPV 10.5, Immature Gran % (Auto) 0.200, Neut % (Auto) 58.4, Lymph % (Auto) 32.7, [place] % (Auto) 6.9, Eos % (Auto) 1.5, Baso % (Auto) 0.3, Absolute Neuts (auto) 5.5, Absolute Lymphs (auto) 3.07, Nucleated RBC % 0, Sodium 140, Potassium 3.5, Chloride 106, Carbon Dioxide 20.2 L, Anion Gap 13, BUN 15, Creatinine 1.04, Estim Creat Clear Calc 53.40, Est GFR (MDRD) Non-Af 64, BUN/Creatinine Ratio 13.9, Glucose 147 H, Calcium 10.2, Total Bilirubin 0.30, AST 24, ALT 17, Alkaline Phosphatase 68, Total Protein 7.3, Albumin 4.6, Globulin 2.7, Albumin/Globulin Ratio 1.7, Lipase 44, Ethyl Alcohol < 10.1 07/17/25 22:28: Urine Color Yellow, Urine Clarity Clear, Urine pH 6.0, Ur Specific Stuart 1.010, Urine Protein 30 H, Urine Glucose (UA) Normal, Urine Ketones Negative, Urine Occult Blood Negative, Urine Nitrite Negative, Urine Bilirubin Negative, Urine Urobilinogen Normal, Ur Leukocyte Esterase Negative, Urine RBC 0-5 SEEN, Urine WBC 0-5 SEEN, Ur Squamous Epith Cells 0 SEEN, Urine Bacteria 0 SEEN, Urine Mucus 0 SEEN Imaging Radiology Impression Abdomen/Pelvis CT 07/17/25 20:45 IMPRESSION: Appearance of the gallbladder is suspicious for mild cholecystitis. Findings and recommendations discussed above. - Hepatic lesions are too small to further characterize but appears similar to the prior exam. Clinical correlation is advised as discussed above. - Other incidental findings discussed above. Reading Location: [id number] Brain CT 07/17/25 20:45 IMPRESSION: 1. No acute intracranial abnormality. 2. 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 Reading Location: [id number] Assessment & Plan Assessment/Plan (1) Benign paroxysmal positional vertigo: (2) Abdominal pain: PLAN: Plan The patient is a 54 y/o F w/ PMHx: Chronic migraines, Factor V Heterozygous mutation, GERD, HLD, Anxiety and Depression, CKD stage II per GFR trending who presents to the [facility] ED on 07/17/2025 with history of onset of dizziness at approximately 5 AM early in the morning when she was first getting up with spinning sensation with associated nausea but no emesis quickly passing as she laid down for 10 minutes with onset at midday upper abdominal pain and right upper quadrant discomfort with nausea but no emesis rating it is severe, sharp and aching 10 out of 10 prompting her to eventually lay back down at that time she had recurrent vertiginous type symptoms with decision to present to the ED for further evaluation. #1. Acute right upper/epigastric quadrant abdominal pain with questionable acute cholecystitis: CT imaging with questionable acute cholecystitis, currently abdominal exam with no rebound tenderness of note with no marked WBC elevation or left shift or fever. From discussion with patient she does have chronic abdominal pain. Will admit to medical surgical floor, will maintain on clear liquids until midnight with n.p.o. status following, will maintain on IV PPI, will have pain regimen as well as antiemetic regimen as needed, will obtain gallbladder ultrasound and will continue consultation initiated per ED with general surgery. #2. Acute vertiginous symptoms suspicious for BPPV: Patient with reproducible symptoms in the ED, improved with ED interventions, noted occurred earlier in the day and recurrent prior to ED arrival, will continue to hydrate, continue treatment for concurrent presentation abdominal pain and migraine as noted, given resolution in the ED will have as needed meclizine regimen however if alters or more concerning low threshold to investigate further. #3. Acute on chronic migraine: Patient with frontal throbbing heavy headache with mild light sensitivity which is similar to her baseline headache she reports, will continue patient home topiramate as well as Nurtec home regimen, will continue Toradol in addition. If intractable certainly may consider addition of gabapentin, Decadron, Depacon if necessary but in the ED improving. #4. Hyperglycemia without diabetic history: Admission glucose 147, no diabetic history, if repeat a.m. labs with notably elevated blood sugar would pursue further evaluation with A1c. #5. Chronic Kidney Disease Stage II per GFR trending: Admission BUN/Cr 15/1.04, GFR 64, baseline renal function 0.8-1.2, repeat BMP in AM. #6. Anxiety and depression: Will continue patient home fluoxetine regimen as well as as needed hydroxyzine as needed for anxiety. #7. Hyperlipidemia: Will continue patient on statin therapy. #8. Factor V heterozygous mutation: Patient is per current list not on any chronic regimen, clarified to be certain. #9. GERD: Will maintain on IV PPI as noted. #10. DVT prophylaxis: Lovenox. Charges/Coding Visit Charges Inpatient E&M: 19190 Init Hosp L3
--- OUTSIDE RECORDS SUMMARY | 2025-07-17 23:28 | XMS RPT_ITS | CCD ---
Author Organization [facility] Care Team Providers Care Retail Sales Lead Name Role Phone Sang Sanders Unavailable Unavailable [...] Justus Mcdonald MD Primary Care Provider Yoanna GLASS GRINDER.Amber CONWAY Unavailable Agnes GLASS GRINDER.MAN, Arlet Barker Unavailable [phone] Dr. Justus Mcdonald MD Primary Care Provider Dr. Mango Leone MD Emergency Provider Dr. Mango Leone MD Attending Provider Dr. Fausto Johnston DO Emergency Provider [phone] JUSTUS MCDONALD Primary Care Unavailable AMBER [...] Primary Care Unavailable Kenyon Gasca Attending Unavailable AtholJustus marion Referring Unavailable Harry Justus Primary Care Unavailable AtholJustus Primary Care Unavailable Fausto Johnston Attending Unavailable Mango Leone Attending Unavailable Harry Justus Primary Care Unavailable Allergies Allergy Classification Reported Allergen(s) Allergy Type Date of Onset Reaction(s) Facility (20 sources) Acetaminophen; Translations: [ACETAMINOPHEN] Drug Allergy 7 Other: See Comments [facility] (20 sources) Acetaminophen / HYDROcodone; Translations: [HYDROCODONE-ACET AMINOPHEN] Drug Allergy 2 Vomiting [facility] (20 sources) Adhesive Tape; Translations: [ADHESIVE TAPE (ROSINS)] Allergy to substance 3 Rash [facility] (20 sources) atorvastatin; Translations: [ATORVASTATIN CALCIUM] Drug Allergy 2 Intolerance [facility] (20 sources) Naproxen; Translations: [NAPROXEN SODIUM] Drug Allergy 2 GI Upset [facility] (10 sources) Penicillins; Translations: [PENICILLINS] Drug Allergy 5 Unknown [facility] (20 sources) Sulfamethoxazole; Translations: [SULFAMETHOXAZOLE ] Drug Allergy 4 Intolerance [facility] Work Phone: (20 sources) Penicillins Drug Allergy 5 Unknown [facility] (20 sources) Latex; Translations: [LATEX] Drug Allergy 9 Rash [facility] (8 sources) Penicillins Drug Allergy 5 Unknown [facility] (2 sources) Naproxen Drug Allergy 5 Nausea/Vom/Diar jcarlos [facility] (2 sources) Penicillins Allergy to substance 5 Other [facility] (1 source) Acetaminophen Drug Allergy 5 [facility] (1 source) Latex Drug allergy (disorder) 5 [facility] (1 source) Naproxen Drug Allergy 5 [facility] (1 source) Penicillins Drug allergy (disorder) [facility] Medications Current Medications Medication Drug Class(es) [...] Start: 06-29-2023 take 1 capsule by mo [facility] twice daily Doxycycline Monohydrate 100 mg capsule [...] on above: Take 1 capsule by mo [facility] three times daily as needed. methocarbamol 500 [...] on above: Take 1 capsule by mo [facility] twice daily with meals for 7 days. [...] Active Start: 03-29-2025 take 1 tablet by [facility] every six hours as needed for [...] with food. Take 2 tablets by mo [facility] once daily for 5 days. rimegepant 75 [...] 01, 2020 1:03am Back pain Dorsalgia, unspecified [id number] 200 actuat albuterol 0.09 mg/actuat metered dose [...] mg/ml oral solution (6 sources) Phenothiazine, Uncompetitive B-tihbbf-M-aspartat e Receptor Antagonist, Sigma-1 Agonist Start: 11-29-2021 [...] Comment on above: Take 1 capsule by [facility] once daily. ferrous sulfate 325 mg [...] (Course of therapy completed) polyethylene glycol 3350 62072 mg powder for oral solution (12 sources) Osmotic Laxative Start: 04-20-20 End: 11-27-19 23 polyethylene glycol 3350 (MIRALAX, GLYCOLAX) 17 gram/dose powder Indications: Colon cancer screening Use as directed for Miralax / Gatorade Bowel Prep Kit 238 g 0 04/20/2021 11/27/2022 Discontinued Comment on above: Use as directed for Miralax / Gatorade Bowel Prep Kit polyethylene glycol 3350 061360 mg / potassium chloride 2970 mg / sodium bicarbonate 6740 mg / sodium chloride 5860 mg / sodium sulfate 67432 mg powder for oral solution (1 source) [...] of teeth and jaw (1 source) Temporomandibular osagk-bpdf-mkqwmpwgtgo syndrome; Translations: [Arthralgia of temporomandibular joint, unspecified [...] Test Name Value Interpretation Reference Range Facility [facility] 07-07-2025 CNOV Office Visit (FAMPWS ) ----- ALLENESTUARDO Smith ([id number]) 1970 F Date Time Provider Department 07/07/25 4:00 PM JUSTUS MCDONALD [facility] During your visit today, we recorded the [...] 11/24/2020 ESOPHAGOGASTRODUODENOSCOP Y TRANSORAL DIAGNOSTIC 04/13/2003 EGD [facility] Lundy ESOPHAGOGASTRODUODENOSCOP Y TRANSORAL DIAGNOSTIC 12/08/2018 EGD HYSTERECTOMY HX 2005 left ovaries INCISE FINGER TENDON SHEATH Left 01/11/2021 Left middle trigger finger release GUERIN W/O FACETEC FORAMOT/DSC 1/2 VRT SGM CRV 2006 Laminectomy, cervical and titianium placed NECK SURGERY HX SKIN BIOPSY HX VAGINAL HYSTERECTOMY FAMILY HISTORY Problem Relation Age of Onset Diabetes Mother Headache Mother Hypertension Mother Heart Father 3 MN's, age 52 Cancer Maternal Grandmother Uterine Blood [...] right side. (more content not included)... Normal [facility] Emergency Department Summary on 07-07-2025 Emergency Department Summary [facility] Medical Records Department [address] [place] [address] Emergency Department Summary 07/07/25 MR#: [id number] Acct: [id number] Name: ESTUARDO VILLA Rep #: [id number] : 1970 54 From: Fausto Brar PCP: [...] No chest pains no shortness of breath. 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 N (more content not included)... Normal [facility] Venous Duplex Imag/Limited/U nion 07-07-2025 Venous Duplex Imag/Limited/Uni [facility] Imaging Services [address] [place] [address] Venous Duplex Imag/Limited/Uni MR#: [id number] Acct: [id number] Name: ESTUARDO VILLA Rep #: [id number] : 1970 F 54 From: Tonio Caruso MD PCP: Dr. Justus Mcdonald MD Status: REG ER Study: Venous Duplex Imag/Limited/Uni Date of Exam: 0 07/07/25 Exam# [id number] Ordering Dr: Fausto Johnston DO PROCEDURE: LEFT [...] in the left lower extremity. Reading Location: [id number] CC: Dr. Fausto Johnston DO; Dr. Justus Mcdonald MD Pipe And Tank Fabricator: Signed Normal [facility] ALGN FOODS GROUPon 5 [place] IgE Qn (S) <0.35 Normal <0.35 [facility] Comment on above: Order Comment: Speci men Type: BLOOD SPECIMENOrdering Facility: [facility] Address: [address] [place] [address] Performed By: #### F OODS ####[facility] LABCLIA [id number] [place] [address] [place] IgE RAST class (S) Normal [facility] Comment on above: Order Comment: Speci men Type: BLOOD SPECIMENOrdering Facility: [facility] Address: [address] [place] [address] Result Comment: Stevie rgen class is no longer reported Performed By: #### F OODS ####[facility] LABCLIA [id number] [facility] [address], [facility] [place] Cow milk IgE Qn (S) <0.35 Normal <0.35 [facility] Comment on above: Order Comment: Speci men Type: BLOOD SPECIMENOrdering Facility: [facility] Address: [address] [place] [address] Performed By: #### F OODS ####[facility] LABCLIA [id number] [facility] [address], [place] [address] [place] Cow milk IgE RAST class (S) Normal [facility] Comment on above: Order Comment: Speci men Type: BLOOD SPECIMENOrdering Facility: [facility] Address: [address] [place] [address] Result Comment: Stevie rgen class is no longer reported Performed By: #### F OODS ####[facility] LABCLIA [id number] [address] STATES OF [facility] Crab IgE Qn (S) <0.35 Normal <0.35 [facility] Comment on above: Order Comment: Speci men Type: BLOOD SPECIMENOrdering Facility: [facility] Address: [address] [place] [address] Performed By: #### F OODS ####[facility] LABCLIA [id number] [place] [address] [place] Crab IgE RAST class (S) Normal [facility] Comment on above: Order Comment: Speci men Type: BLOOD SPECIMENOrdering Facility: [facility] Address: [address] [place] [address] Result Comment: Stevie rgen class is no longer reported Performed By: #### F OODS ####[facility] LABCLIA [id number] [address], [facility]95 [place] Egg white IgE Qn (S) <0.35 Normal <0.35 [facility] Comment on above: Order Comment: Speci men Type: BLOOD SPECIMENOrdering Facility: [facility] Address: [address] [place] [address] Performed By: #### F OODS ####[facility] LABCLIA [id number] [place] [address] [place] Egg white IgE RAST class (S) Normal [facility] Comment on above: Order Comment: Speci men Type: BLOOD SPECIMENOrdering Facility: [facility] Address: [address] [place] [address] Result Comment: Stevie rgen class is no longer reported Performed By: #### F OODS ####[facility] LABCLIA [id number] [address] [place] IgE Qn (S) <0.35 Normal <0.35 [facility] Comment on above: Order Comment: Speci men Type: BLOOD SPECIMENOrdering Facility: [facility] Address: [address] [place] [address] Performed By: #### F OODS ####[facility] LABCLIA [id number] [address] [place] IgE RAST class (S) Normal [facility] Comment on above: Order Comment: Speci men Type: BLOOD SPECIMENOrdering Facility: [facility] Address: [address] [place] [address] Result Comment: Stevie rgen class is no longer reported Performed By: #### F OODS ####[facility] LABCLIA [id number] [place] [id number] [place] Peanut IgE Qn (S) <0.10 Normal <0.10 [facility] Comment on above: Order Comment: Speci men Type: BLOOD SPECIMENOrdering Facility: [facility] Address: [address] [place] [address] Performed By: #### F OODS ####[facility] LABCLIA [id number] [facility] [address] [place] [address] [place] Peanut IgE RAST class (S) Normal [facility] Comment on above: Order Comment: Speci men Type: BLOOD SPECIMENOrdering Facility: [facility] Address: [address] [place] [address] Result Comment: Stevie rgen class is no longer reported Performed By: #### F OODS ####[facility] LABCLIA [id number] [facility] [address], [place] [address] [place] Shrimp IgE Qn (S) <0.35 Normal <0.35 [facility] Comment on above: Order Comment: Speci men Type: BLOOD SPECIMENOrdering Facility: [facility] Address: [address] [place] [address] Performed By: #### F OODS ####[facility] LABCLIA [id number] [place] [address] [place] Shrimp IgE RAST class (S) Normal [facility] Comment on above: Order Comment: Speci men Type: BLOOD SPECIMENOrdering Facility: [facility] Address: [address] [place] [address] Result Comment: Stevie rgen class is no longer reported Performed By: #### F OODS ####[facility] LABCLIA [id number] [address], [place] [address] [place] Soybean IgE Qn (S) <0.35 Normal <0.35 [facility] Comment on above: Order Comment: Speci men Type: BLOOD SPECIMENOrdering Facility: [facility] Address: [address] [place] [address] Performed By: #### F OODS ####[facility] LABCLIA [id number] [place] [id number] [place] Soybean IgE RAST class (S) Normal [facility] Comment on above: Order Comment: Speci men Type: BLOOD SPECIMENOrdering Facility: [facility] Address: [address] [place] [address] Result Comment: Stevie rgen class is no longer reported Performed By: #### F OODS ####[facility] LABCLIA [id number] [address], [address] Tuna IgE Qn (S) <0.35 Normal <0.35 [facility] Comment on above: Order Comment: Speci men Type: BLOOD SPECIMENOrdering Facility: [facility] Address: [address] [place] [address] Performed By: #### F OODS ####[facility] LABCLIA [id number] [address], [address] Tuna IgE RAST class (S) Normal [facility] Comment on above: Order Comment: Speci men Type: BLOOD SPECIMENOrdering Facility: [facility] Address: [address] [place] [address] Result Comment: Stevie rgen class is no longer reported Performed By: #### F OODS ####[facility] LABCLIA [id number] [address], [address] Wheat IgE Qn (S) <0.35 Normal <0.35 [facility] Comment on above: Order Comment: Speci men Type: BLOOD SPECIMENOrdering Facility: [facility] Address: [address] [place] [address] Performed By: #### F OODS ####[facility] LABCLIA [id number] [address] [place] [address] [facility] Wheat IgE RAST class (S) Normal [facility] Comment on above: Order Comment: Speci men Type: BLOOD SPECIMENOrdering Facility: [facility] Address: [address] [place] [address] Result Comment: Stevie rgen class is no longer reported Performed By: #### F OODS ####[facility] LABCLIA [id number] [address] OF [place] CNOVon 05-11-2025 CNOV Office Visit (FAMPWS ) ----- ESTUARDO VILLA ([id number]) 1970 F Date Time Provider Department 05/11/25 9:40 [facility] During your visit today, we recorded [...] General (Family Medicine) Amber Lenz APRN.CNP as Diabetes Manager (Family Medicine) [place] APRN.CNP as Diabetes Manager (Family Medicine) Concerns today: Anxiety HPI New job Estuardo Villa is a 54-year-old female with a history of anxiety, hyperlipidemia, migraines, and GERD, presenting for a work physical and evaluation of anxiety. Work Physical: - New job at [employer]. - Recent weight loss attributed to dental [...] Comment: Added automatically from request for surgery [id number] Globus Sensation - 10/29/2018 Comment: Added automatically from request for surgery [id number] Epigastric Pain - 10/29/2018 Comment: Added automatically from request for surgery [id number] Gastroesophageal Reflux Disease - 10/29/2018 Comment: Added automatically from request for surgery [id number] Sprain and Strain of Unspecified Site of Elbow and Forearm - 06/15/2014 Factor V Leiden (Hcc) Comment: Saw Dr. Cobb. Advised against long term care social worker anticoagulation or asa. No hormones. Needs post [...] with childbirth 2006 Hiatal hernia 04/13/2003 EGD- [facility] History of 1987,1989,1993 Iron deficiency anemia, unspecified Mental disorder Migraine, unspecified, without mention of intractable migraine without mention of status migrainosus Other pulmonary embolism and infarction 1987 Pulmonary embolism AND factor 5 Leiden PAST SURGICAL HISTORY Procedure Lat (more content not included)... Normal [facility] Abdomen/Pelvis W IV Cont ONL Yon 03-29-2025 Abdomen/Pelvis W IV Cont ONLY [facility] Imaging Services [address] [place] [id number] Abdomen/Pelvis W IV Cont ONLY MR#: [id number] Acct: [id number] Name: ESTUARDO VILLA Rep #: [id number] : 1970 F 54 From: Juanjose Birch MD PCP: Dr. Justus Mcdonald MD Status: REG ER Study: Abdomen/Pelvis W IV Cont ONLY Date of Exam: Exam# [id number] Ordering Dr: Mango Leone MD PROCEDURE: ABDOMEN/PELVIS [...] Mango Leone MD; Dr. Justus Mcdonald MD P[employer] Fabricator: Signed Normal [facility] Absolute lymphocyte countOrd ered By: Mango Leone on 03-29-2025 Lymphocytes Auto (Unsp spec) [#/Vol] 0.87 10*3/uL 0.83-4.51 [facility] Absolute neutrophil countOrd ered By: Mango Leone on 03-29-2025 Neutrophils (Bld) [#/Vol] 9.8 10*3/uL High 2.0-7.7 [facility] Anion gap in Serum or Plasma Ordered By: Mango Leone on 03-29-2025 Anion gap [Moles/Vol] 14 mmol/L 5-15 [facility] Automated lymphocyte count a s percentage of total leukocytesOrdered By: Mango Leone on 03-29-2025 Lymphocytes/100 WBC Auto (Unsp spec) 7.4 % Low 19-41 [facility] BUN/creatinine ratioOrdered By: Mango Leone on 03-29-2025 Urea nitrogen/Creatinine [Mass ratio] 24.9 mg/mg High 10-20 [facility] Basophil percentageOrdered B y: Mango Leone on 03-29-2025 Basophils/100 WBC (Bld) 0.4 % 0-1 [facility] Bilirubin, totalOrdered By: Mango Leone on 03-29-2025 Bilirubin [Mass/Vol] 0.43 mg/dL 0.00-1.30 [facility] CBC W/Diff, Automatedon 03-11 Absolute Lymph 0.87 X10 3/uL Normal 0.83-4.51 [facility] Comment on above: Performed By: #### L 500.4050, L100.0100, L501.2450 #### [facility] [address] [place], [address] Absolute Neut 9.8 X10 3/uL High 2.0-7.7 [facility] Comment on above: Performed By: #### L 500.4050, L100.0100, L501.2450 #### [facility] [address] [place], [address] Basophils/100 WBC (Bld) 0.4 % Normal 0-1 [facility] Comment on above: Performed By: #### L 500.4050, L100.0100, L501.2450 #### [facility] [address] [place], [address] Eosinophils/100 WBC (Bld) 2.2 % Normal 0-5 [facility] Comment on above: Performed By: #### L 500.4050, L100.0100, L501.2450 #### [facility] [address] [place], [address] Erythrocyte distribution width (RBC) [Ratio] 13.2 % Normal 11.6-14.6 [facility] Comment on above: Performed By: #### L 500.4050, L100.0100, L501.2450 #### [facility] [address] [place], [address] Hematocrit (Bld) [Volume fraction] 50.0 % High 37-47 [facility] Comment on above: Performed By: #### L 500.4050, L100.0100, L501.2450 #### [facility] [address] [place], [address] Hemoglobin (Bld) [Mass/Vol] 16.8 g/dL High 12.0-15.0 [facility] Comment on above: Performed By: #### L 500.4050, L100.0100, L501.2450 #### [facility] [address] [place], [address] IG% 0.500 Normal 0.0-0.9 [facility] Comment on above: Result Comment: IG% - Immature Granulocytes (promyelocytes, myelocytes and metamyelocytes) > 1% indicates that a LEFT SHIFT is Present. Performed By: #### L 500.4050, L100.0100, L501.2450 #### [facility] [address] [place], [address] Lymphocytes/100 WBC (Bld) 7.4 % Low 19-41 [facility] Comment on above: Performed By: #### L 500.4050, L100.0100, L501.2450 #### [facility] [address] [place], [address] MCH (RBC) [Entitic mass] 29.8 pg Normal 27.0-32.0 [facility] Comment on above: Performed By: #### L 500.4050, L100.0100, L501.2450 #### [facility] [address] [place], [address] MCHC (RBC) [Mass/Vol] 33.6 g/dL Normal 32-36 [facility] Comment on above: Performed By: #### L 500.4050, L100.0100, L501.2450 #### [facility] [address] [place], [address] MCV (RBC) [Entitic vol] 88.8 fL Normal 81-99 [facility] Comment on above: Performed By: #### L 500.4050, L100.0100, L501.2450 #### [facility] [address] [place], [address] Monocytes/100 WBC (Bld) 6.0 % Normal 0-10 [facility] Comment on above: Performed By: #### L 500.4050, L100.0100, L501.2450 #### [facility] [address] [place], [address] Neutrophils/100 WBC (Bld) 83.5 % High 47-70 [facility] Comment on above: Performed By: #### L 500.4050, L100.0100, L501.2450 #### [facility] [address] [place], [address] Nucleated RBC (Bld) [#/Vol] 0 10*3/uL Normal 0-5 [facility] Comment on above: Performed By: #### L 500.4050, L100.0100, L501.2450 #### [facility] [address] [place], [address] Platelet mean volume (Bld) [Entitic vol] 11.1 fL Normal 6.2-12.0 [facility] Comment on above: Performed By: #### L 500.4050, L100.0100, L501.2450 #### [facility] [address] [place], [address] Platelets (Bld) [#/Vol] 244 10*3/uL Normal 150-450 [facility] Comment on above: Performed By: #### L 500.4050, L100.0100, L501.2450 #### [facility] [address] [place], [address] RBC (Bld) [#/Vol] 5.63 10*6/uL High 4.2-5.4 [facility] Comment on above: Performed By: #### L 500.4050, L100.0100, L501.2450 #### [facility] [address] [place], [address] RDW SD 43.1 fl Normal 35.1-43.9 [facility] Comment on above: Performed By: #### L 500.4050, L100.0100, L501.2450 #### [facility] [address] [place], [address] WBC (Bld) [#/Vol] 11.7 10*3/uL High 4.4-11.0 [facility] Comment on above: Performed By: #### L 500.4050, L100.0100, L501.2450 #### [facility] [address] [place], [address] Carbon dioxide, total [Moles /volume] in Central venous bloodOrdered By: Mango Leone on 03-29-2025 CO2 [Moles/Vol] 19.8 mmol/L Low 21.0-32.0 [facility] Chloride assayOrdered By: Darian Leone on 03-29-2025 Chloride [Moles/Vol] 105 mmol/L 98-108 [facility] Comprehensive Metabolic Prof ilon 03-29-2025 Albumin [Mass/Vol] 4.7 g/dL Normal 3.5-5.0 [facility] Comment on above: Performed By: #### L 500.4050, L100.0100, L501.2450 #### [facility] [address] [place], [address] Albumin/Globulin [Mass ratio] 1.5 {ratio} Normal 0.9-2.4 [facility] Comment on above: Performed By: #### L 500.4050, L100.0100, L501.2450 #### [facility] [address] [place], [address] ALK PHOS 93 U/L Normal 35-104 [facility] Comment on above: Performed By: #### L 500.4050, L100.0100, L501.2450 #### [facility] [address] [place], [address] ALT [Catalytic activity/Vol] 54 U/L High <=34 [facility] Comment on above: Performed By: #### L 500.4050, L100.0100, L501.2450 #### [facility] [address] [place], [address] AST [Catalytic activity/Vol] 31 U/L Normal <=31 [facility] Comment on above: Performed By: #### L 500.4050, L100.0100, L501.2450 #### [facility] [address] [place], [address] Bilirubin [Mass/Vol] 0.43 mg/dL Normal 0.00-1.30 [facility] Comment on above: Performed By: #### L 500.4050, L100.0100, L501.2450 #### [facility] [address] [place], [address] BUN/CRE 24.9 RATIO High 10-20 [facility] Comment on above: Performed By: #### L 500.4050, L100.0100, L501.2450 #### [facility] [address] [place], [address] Calcium [Mass/Vol] 9.9 mg/dL Normal 7.6-11.0 [facility] Comment on above: Performed By: #### L 500.4050, L100.0100, L501.2450 #### [facility] [address] [place], [address] Chloride [Moles/Vol] 105 mmol/L Normal 98-108 [facility] Comment on above: Performed By: #### L 500.4050, L100.0100, L501.2450 #### [facility] [address] [place], [address] CO2 [Moles/Vol] 19.8 mmol/L Low 21.0-32.0 [facility] Comment on above: Performed By: #### L 500.4050, L100.0100, L501.2450 #### [facility] [address] [place], [address] Creatinine [Mass/Vol] 0.93 mg/dL Normal 0.70-1.20 [facility] Comment on above: Performed By: #### L 500.4050, L100.0100, L501.2450 #### [facility] [address] [place], [address] ECRCL 66.13 ml/min Normal 50-250 [facility] Comment on above: Performed By: #### L 500.4050, L100.0100, L501.2450 #### [facility] [address] [place], [address] GAP 14 Normal 5-15 [facility] Comment on above: Performed By: #### L 500.4050, L100.0100, L501.2450 #### [facility] [address] [place], [address] GFR/1.73 sq M.predicted among non-blacks MDRD (S/P/Bld) [Vol rate/Area] 73 mL/min/{1.73_m2} Normal >60 [facility] Comment on above: Result Comment: mL/m in/1.73m2 CKD-EPI Creatinine Equation (2020) Performed By: #### L 500.4050, L100.0100, L501.2450 #### [facility] [address] [place], [address] Globulin (S) [Mass/Vol] 3.2 g/dL Normal 2.2-4.2 [facility] Comment on above: Performed By: #### L 500.4050, L100.0100, L501.2450 #### [facility] [address] [place], [address] Glucose [Mass/Vol] 106 mg/dL High 70-99 [facility] Comment on above: Performed By: #### L 500.4050, L100.0100, L501.2450 #### [facility] [address] [place], [address] Potassium [Moles/Vol] 4.4 mmol/L Normal 3.3-5.1 [facility] Comment on above: Performed By: #### L 500.4050, L100.0100, L501.2450 #### [facility] [address] [place], [address] Sodium [Moles/Vol] 138 mmol/L Normal 133-145 [facility] Comment on above: Performed By: #### L 500.4050, L100.0100, L501.2450 #### [facility] [address] [place], [address] T PROT 7.9 g/dL Normal 5.9-8.4 [facility] Comment on above: Performed By: #### L 500.4050, L100.0100, L501.2450 #### [facility] [address] [place], [address] Urea nitrogen [Mass/Vol] 23 mg/dL High 4-19 [facility] Comment on above: Performed By: #### L 500.4050, L100.0100, L501.2450 #### [facility] [address] [place], [address] Emergency Department Summary on 03-29-2025 Emergency Department Summary [facility] Medical Records Department [address] [place] [address] Emergency Department Summary 03/29/25 MR#: [id number] Acct: [id number] Name: ESTUARDO VILLA Rep #: [id number] : 1970 54 From: Mango Leone MD [...] Prior similar symptoms: No Recent Illness/Hospitalization: No [facility] Medical History Hypercholesteremia Factor 5 Leiden mutation, [...] 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 [employer] Cyanogen ROS ED ROS Narrative Nausea, vomiting, diarrhea [...] Lower den (more content not included)... Normal [facility] Eosinophil percentageOrdered By: Mango Leone on 03-29-2025 Eosinophils/100 WBC (Bld) 2.2 % 0-5 [facility] Erythrocyte distribution wid th ratioOrdered By: Mango Leone on 03-29-2025 Erythrocyte distribution width (RBC) [Ratio] 13.2 % 11.6-14.6 [facility] Erythrocyte distribution wid th standard deviationOrdered By: Mango eLone on 03-29-2025 Erythrocyte distribution width (RBC) [Ratio] 43.1 fl 35.1-43.9 [facility] Glomerular filtration rate ( GFR) estimation/1.73 sq m using serum, plasma, or whole bOrdered By: Mango Leone on 03-29-2025 GFR/1.73 sq M.predicted among non-blacks MDRD (S/P/Bld) [Vol rate/Area] 73 mL/min/{1.73_m2} >60 [facility] Comment on above: mL/min/1.73m2 CKD-EP I Creatinine Equation (2020) Hematocrit Auto (Bld) [Volum e fraction]Ordered By: Mango Leone on 03-29-2025 Hematocrit (Bld) [Volume fraction] 50.0 % High 37-47 [facility] Hemoglobin measurementOrdere d By: Mango Leone on 03-29-2025 Hemoglobin (Bld) [Mass/Vol] 16.8 g/dL High 12.0-15.0 [facility] Immature granulocytes/100 WB C Auto (Bld)Ordered By: Mango Leone on 03-29-2025 Immature granulocytes/100 WBC (Bld) 0.500 % 0.0-0.9 [facility] Comment on above: IG% - Immature Granu locytes (promyelocytes, myelocytes and metamyelocytes) > 1% indicates that a LEFT SHIFT is Present. Laboratory - Chemistry and C hemistry - challengeOrdered By: Mango Leone on 03-29-2025 AST [Catalytic activity/Vol] 31 U/L <32 [facility] Lipaseon 03-29-2025 Lipase [Catalytic activity/Vol] 37 U/L Normal 13-75 [facility] Comment on above: Result Comment: Benita carcamo note: LIPASE revised reference range effective 23. New Lipase methodology. Expected to produce lower values than the previous assay method. NEW Reference Range: 13 - 75 U/L Performed By: #### L 500.4050, L100.0100, L501.2450 #### [facility] [address] [place], [address] Lipase measurementOrdered By : Mango Leone on 03-29-2025 Lipase [Catalytic activity/Vol] 37 U/L 13-75 [facility] Comment on above: Please note:LIPASE r evised reference range effective 23. New Lipase methodology. Expected to produce lower values than the previous assay method. NEW Reference Range: 13 - 75 U/L MCV (mean corpuscular volume ) determinationOrdered By: Mango Leone on 03-29-2025 MCV (RBC) [Entitic vol] 88.8 fL 81-99 [facility] Mean corpuscular hemoglobin (MCH) determinationOrdered By: Mango Leone on 03-29-2025 MCH (RBC) [Entitic mass] 29.8 pg 27.0-32.0 [facility] Mean corpuscular hemoglobin concentration (MCHC) determinationOrdered By: Mango Leone on 03-29-2025 MCHC (RBC) [Mass/Vol] 33.6 g/dL 32-36 [facility] Mean platelet volume determi nationOrdered By: Mango Leone on 03-29-2025 Platelet mean volume (Bld) [Entitic vol] 11.1 fL 6.2-12.0 [facility] Monocyte percentageOrdered B y: Mango Leone on 03-29-2025 Monocytes/100 WBC (Bld) 6.0 % 0-10 [facility] Neutrophil percentageOrdered By: Mango Leone on 03-29-2025 Neutrophils/100 WBC (Bld) 83.5 % High 47-70 [facility] Nucleated red blood cell per centageOrdered By: Mango Leone on 03-29-2025 Nucleated RBC/100 WBC (Bld) [Ratio] 0 % 0-5 [facility] Platelet countOrdered By: Darian Leone on 03-29-2025 Platelets (Bld) [#/Vol] 244 10*3/uL 150-450 [facility] Potassium measurement (mass/ volume)Ordered By: Mango Leone on 03-29-2025 Potassium (Unsp spec) [Mass/Vol] 4.4 mmol/L 3.3-5.1 [facility] RBC Auto (Bld) [#/Vol]Ordere d By: Mango Leone on 03-29-2025 RBC (Bld) [#/Vol] 5.63 10*6/uL High 4.2-5.4 [facility] Serum creatinine measurement (mass/volume)Ordered By: Mango Leone on 03-29-2025 Creatinine [Mass/Vol] 0.93 mg/dL 0.70-1.20 [facility] Serum globulin measurementOr dered By: Mango Leone on 03-29-2025 Globulin (S) [Mass/Vol] 3.2 g/dL 2.2-4.2 [facility] Serum glucose measurement (m ass/volume)Ordered By: Mango Leone on 03-29-2025 Glucose [Mass/Vol] 106 mg/dL High 70-99 [facility] Serum or plasma alanine marin otransferase (ALT) measurementOrdered By: Mango Leone on 03-29-2025 ALT [Catalytic activity/Vol] 54 U/L High <35 [facility] Serum or plasma albumin atif urement (mass/volume)Ordered By: Mango Leone on 03-29-2025 Albumin [Mass/Vol] 4.7 g/dL 3.5-5.0 [facility] Serum or plasma albumin/glob ulin mass ratioOrdered By: Mango Leone on 03-29-2025 Albumin/Globulin [Mass ratio] 1.5 {ratio} 0.9-2.4 [facility] Serum or plasma alkaline coy sphatase measurementOrdered By: Mango Leone on 03-29-2025 ALP [Catalytic activity/Vol] 93 U/L 35-104 [facility] Serum or plasma calcium atif urement (mass/volume)Ordered By: Mango Leone on 03-29-2025 Calcium [Mass/Vol] 9.9 mg/dL 7.6-11.0 [facility] Serum or plasma urea nitroge n measurement (mass/volume)Ordered By: Mango Leone on 03-29-2025 Urea nitrogen [Mass/Vol] 23 mg/dL High - [facility] Sodium levelOrdered By: Mango Leone on 03-29-2025 Sodium [Moles/Vol] 138 mmol/L 133-145 [facility] Total proteinOrdered By: Nawaf Leone on 03-29-2025 Protein [Mass/Vol] 7.9 g/dL 5.9-8.4 [facility] White blood cell (WBC) count Ordered By: Mango Leone on 03-29-2025 WBC (Bld) [#/Vol] 11.7 10*3/uL High 4.4-11.0 [facility] ESTUARDO VILLA ([id number]) 1970 F Date Time Provider Department 03/10/25 [facility] During your visit today, we recorded the following information about you: Jg Box LPN 03/10/2025 10:28 AM Signed Type of form: reasonable accommodation request Form received via walk in When form is completed, Fax form to [phone] Form has been forwarded to Physician Desk: [...] Status:Closed by JG BOX on 03/10/25 Normal [facility] CNCOon 03-09-2025 CNCO Letter Text Normal [facility] CNPNon 03-09-2025 CNPN Telephone (FAMPWS) ----- ESTUARDO VILLA ([id number]) 1970 F Date Time Provider Department 03/09/25 [facility] During your visit today, we recorded the [...] informed. 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 Kelly Guidry MA Allergies As of Date: [...] gastritis without bleeding *08/09/2023 Encounter Status:Closed by KELLY GUIDRY on 03/09/25 Normal [facility] CNOVon 01-07-2025 CNOV Office Visit (FAMPWS ) ----- ESTUARDO VILLA ([id number]) 1970 F Date Time Provider Department [facility]25 10[facility] your visit today, we recorded the following information about you: Temperature Pulse Blood pressure Weight 97.7 degrees 69/minute 128/80 70.3 kg [place] APRN.COIN ROLLING MACHINE OPERATOR 01/07/2025 11:14 AM Signed This is a 54 year old female who presents today with: Patient presents with: Cough: Follow up from [facility] HISTORY OF PRESENT ILLNESS: Estuardo Villa is a 54 year old female. Patient presents with: Cough: Follow up from [facility] Persistent cough. Sick for 3 weeks. Productive yellow-green at first. Initially chest hurt + Chills then, too + Headache Stuffy sinuses No sore No body aches + tired + nausea + diarrhea PAST MEDICAL HISTORY: PAST MEDICAL HISTORY Diagnosis Date Anxiety state, unspecified Blood dyscrasia Carpal tunnel syndrome Factor V Leiden (HCC) Galactorrhea not associated with childbirth 2006 [facility] 1987,1989,1993 Iron deficiency anemia, unspecified Mental disorder Migraine, unspecified, without mention of intractable migraine without mention of status migrainosus Other pulmonary embolism and infarction 1987 Pulmonary embolism AND factor 5 Leiden PAST SURGICAL HISTORY Procedure Laterality Date DELIVERY ONLY 1987,1989,1993 , low transverse EGD 11/24/2020 ESOPHAGOGASTRODUODENOSCOP Y TRANSORAL DIAGNOSTIC 04/13/2003 EGD [facility] Dr. Lundy ESOPHAGOGASTRODUODENOSCOP Y TRANSORAL DIAGNOSTIC [...] Headache Mother Hypertension Mother Heart Father 3 MN's, age 52 Cancer Maternal Grandmother Uterine Blood [...] voices unde (more content not included)... [facility] (UCWSTR ) ----- ESTUARDO VILLA ([id number]) 1970 F Date Time Provider Department 01/04/25 9:45 AM [place] [facility] During your visit today, we recorded the [...] associated with childbirth 2006 Hiatal hernia 04/13/2003 [facility] History of 1987,1989,1993 Iron deficiency anemia, unspecified [...] Diagnosis:Subacute cough [R05.2] Order(s):XR CHEST 2V FRONTAL/LAT [[id number]] Order #: [id number] FUTURE benzonatate (TESSALON PERLE) 100 mg capsuleTake 1 capsule by mouth every 8 hours as needed for cough for up to 15 days.Disp: 30 capsuleRfl: 0 Prescriptions as of 01/04/2025 - benzonatate (TESSALON PERLE) 100 mg capsule Take 1 capsule by mouth every 8 hours as needed for cough for up to 15 days. - hydrO (more content not included)... Normal [facility] XR CHEST 2V FRONTAL/LATon XR CHEST 2V [...] cervical spine. IMPRESSION: No acute radiographic abnormality. Pipe And Tank Fabricator: HARJIT Transcribe Date/Time: Jan 04 2025 10:51A Dictated by : REX LAKHANI MD This examination was interpreted and the report reviewed and electronically signed by: REX LAKHANI MD on Jan 04 2025 10:52AM EST [id number] Normal [facility] XR Chest PA and Lateralon IMPRESSION: No acute radiographic abnormality. Pipe And Tank Fabricator: [facility] Transcribe Date/Time: Jan 04 2025 10:51A Dictated [...] lower cervical spine. DIVISION [facility]OLOGY [facility] * * *Final Report* * [...] spine. IMPRESSION IMPRESSION: No acute radiographic abnormality. Pipe And Tank Fabricator: [facility] Transcribe Date/Time: Jan 04 2025 10:51A Dictated by : REX LAKHANI MD This examination was interpreted and the report reviewed and electronically signed by: REX LAKHANI MD on Jan 04 2025 10:52AM EST [facility] Radiology Study observation (narrative) [facility] XR Chest PA and LateralOrder ed By: Cc Provider on 01-04-2025 [facility] CNOVon 10-06-2024 CNOV Office Visit (UCWSTR ) ----- ESTUARDO VILLA ([id number]) 1970 F Date Time Provider Department 10/06/24 11:45 AM [facility] During your visit today, we recorded the following information about you: Temperature Pulse Respiration Blood pressure 98.6 degrees 70/minute 18/minute 118/78 Weight 70.5 kg Lisa Cortes PA 10/06/2024 12:40 PM Signed This note was created using Montalvo Systems[employer]. Subjective Estuardo Villa is a 53 year [...] although symptoms resolved. She has taken Tylenol [id number], without much improvement in symptoms. PAST MEDICAL [...] 11/24/2020 ESOPHAGOGASTRODUODENOSCOP Y TRANSORAL DIAGNOSTIC 04/13/2003 EGD [facility] Dr. Lundy ESOPHAGOGASTRODUODENOSCOP Y TRANSORAL DIAGNOSTIC [...] Headache Mother Hypertension Mother Heart Father 3 MN's, age 52 Cancer Maternal Grandmother Uterine Blood [...] viral e (more content not included)... Normal [facility] XR CHEST 2V FRONTAL/LATon XR CHEST 2V [...] cervical spine. IMPRESSION: No acute radiographic abnormality. Pipe And Tank Fabricator: [employer] Transcribe Date/Time: Oct 06 2024 12:33P Dictated by : MILTON GARCIA MD This examination was interpreted and the report reviewed and electronically signed by: MILTON GARCIA MD on Oct 06 2024 12:34PM EST [id number] Normal [facility] XR Chest PA and Lateralon IMPRESSION: No acute radiographic abnormality. Pipe And Tank Fabricator: HARJIT Transcribe Date/Time: Oct 06 2024 12:33P [...] lower cervical spine. DIVISION OF RADIOLOGY Provider, [facility] - 10/06/2024 * * *Final Report* * [...] spine. IMPRESSION IMPRESSION: No acute radiographic abnormality. Pipe And Tank Fabricator: [facility] Transcribe Date/Time: Oct 06 2024 12:33P Dictated by : MILTON GARCIA MD This examination was interpreted and the report reviewed and electronically signed by: MILTON GARCIA MD on Oct 06 2024 12:34PM [facility] Radiology Study observation (narrative) [facility] XR Chest PA and LateralOrder ed By: Ccf Provider on 10-06-2024 [facility] CNOVon 09-14-2024 CNOV Office Visit (UCWSTR ) ----- ESTUARDO VILLA ([id number]) 1970 F Date Time Provider Department 09/14/24 10:15 AM ROLLY KEEN [facility] During your visit today, we recorded the following information about you: Temperature Pulse Respiration Blood pressure 99.2 degrees 68/minute 14/minute 118/76 Weight 70 kg Rolly Keen, GLASS GRINDER.COIN ROLLING MACHINE OPERATOR 09/14/2024 10:21 AM Signed This note was created using PLDT. Subjective Estuardo Villa is a 53 year [...] any new or worsening concerns. Rolly Keen APRN.COIN ROLLING MACHINE OPERATOR Allergies As of Date: 09/14/2024 Noted Allergy [...] Date Reviewed: 09/14/2024 Reviewed by: Rolly Keen APRN.COIN ROLLING MACHINE OPERATOR - Fully Assessed Reason for Visit: Sore [...] Status:Closed by ROLLY KEEN on 09/14/24 Normal [facility] Urgent Care Visit Reporton 0 07-22-2024 Urgent Care Visit Report [facility] [address], [address] [place] [address] OFFICE VISIT Date of Service: 07/22/24 MR#: [id number] Acct: [id number] Name: ALLENESTUARDO M Rep #: [id number] : 1970 Provider: DELORIS Santana Age/Sex: 53/F Location: [facility] Status: Signed Intake Vital Signs 06/29/23 11:14 Height 5 ft 4 in Intake Visit Reasons: PRE EMP/NON DOT PHYSICAL/[facility] Chief Complaint: chest pain Allergies latex [...] 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 [employer] Chief Complaint: chest pain Details: ESTUARDO VILLA, is a 53 F who presents to the office today for Office Procedures Physical Exam Coding PE Coding Pre-employment PE: Yes Coding Level of Care Code No Charge Diagnoses Physical exam, pre-employment Z02.1 Assessment and Plan Assessment and Plan (1) Physical exam, pre-employment: Status: Acute 07/22/24 1430 Date Kenyon Castillo Signature: Date (if applicable) CC: Normal [facility] Lipid 1996 panelon 4 Cholesterol [Mass/Vol] 419 mg/dL High NINF - 200 mg/dL [facility] Comment on above: <200 mg/dL, Desirabl e 200-239 mg/dL, Borderline high >239 mg/dL, High Cholesterol in HDL [Mass/Vol] 58 mg/dL 39 - PINF mg/dL [facility] Comment on above: 40-59 mg/dL, Accepta ble >59 mg/dL, High: Negative risk factor for coronary heart disease <40 mg/dL, Low: Positive risk factor for coronary heart disease Cholesterol in LDL [Mass/Vol] 321 mg/dL High NINF - 100 mg/dL [facility] Comment on above: <100 mg/dL, Optimal 100-129 mg/dL, Near optimal/above optimal 130-159 mg/dL, Borderline high 160-189 mg/dL, High >189 mg/dL, Very high Secondary prevention optimal LDL Cholesterol levels are recommended to be < 70 mg/dL Cholesterol in LDL/Cholesterol in HDL [Mass ratio] 5.53 {ratio} High NINF - 2.54 [facility] Comment on above: Reference: 1. National Cholesterol Education Program ATP III Guideline At-A-Glance Quick Desk Reference: National Heart, Lung, and Blood Twisp. National Institutes of Health. 2001: NIH Publication No. 01-3305. 2. An International Atherosclerosis Society position paper: global recommendations for the management of dyslipidemia: executive summary, Atherosclerosis. 2014: 232(2):410-413. Cholesterol in VLDL [Mass/Vol] 40 mg/dL High NINF - 30 mg/dL [facility] Cholesterol non HDL [Mass/Vol] 361 mg/dL High NINF - 130 mg/dL [facility] Comment on above: <130 mg/dL, Optimal 130-159 mg/dL, Near optimal/above optimal 160-189 mg/dL, Borderline high 190-219 mg/dL, High >219 mg/dL, Very high Secondary prevention optimal non HDL Cholesterol levels are recommended to be <100 mg/dL Cholesterol.total/Chol esterol in HDL [Mass ratio] 7.22 {ratio} High NINF - 5.10 [facility] Fasting Time 12 hrs [facility] Interpretation and review of laboratory results Abnormal [facility] Triglyceride [Mass/Vol] 198 mg/dL High NINF - 150 mg/dL [facility] Comment on above: <150 mg/dL, Normal 150-199 mg/dL, Borderline high 200-499 mg/dL, High >499 mg/dL, Very high [facility] No Panel Informationon 03-14 Radiology Study observation (narrative) [facility] XR Ribs - right Views and Ch est PAon 03-14-2023 IMPRESSION: No acute right rib fracture. Pipe And Tank Fabricator: HARJIT Transcribe Date/Time: Mar 14 2023 11:22A Dictated by : DONYA HUGHES MD This examination was interpreted and the report reviewed and electronically signed by: DONYA HUGHES MD on Mar 14 2023 11:25AM [facility] DIVISION OF RADIOLOGY * * *Final [...] lungs appear normal. DIVISION OF RADIOLOGY Provider, [facility] - 03/14/2023 * * *Final Report* * [...] IMPRESSION IMPRESSION: No acute right rib fracture. Pipe And Tank Fabricator: HARJIT Transcribe Date/Time: Mar 14 2023 11:22A Dictated by : DONYA HUGHES MD This examination was interpreted and the report reviewed and electronically signed by: DONYA HUGHES MD on Mar 14 2023 11:25AM EST [facility] XR Ribs - right Views and est PAOrdered By: Ccf Provider on 03-14-2023 [facility] XR Thoracic spine AP and Lat eral and [place] 03-14-2023 IMPRESSION: Mild degenerative changes in the thoracic spine. Pipe And Tank Fabricator: HARJIT Transcribe Date/Time: Mar 14 2023 11:20A Dictated by : DONYA HUGHES MD This examination was interpreted and the report reviewed and electronically signed by: DONYA HUGHES MD on Mar 14 2023 11:22AM [facility] DIVISION OF RADIOLOGY * * *Final [...] cervical spinal fusion. DIVISION OF RADIOLOGY Provider, [facility] - 03/14/2023 * * *Final Report* * [...] Mild degenerative changes in the thoracic spine. Pipe And Tank Fabricator: HARJIT Transcribe Date/Time: Mar 14 2023 11:20A Dictated by : DONYA HUGHES MD This examination was interpreted and the report reviewed and electronically signed by: DONYA HUGHES MD on Mar 14 2023 11:22AM EST [facility] ASHLEE SCREENINGon 02-22-2023 [facility] UA DIP, URINE (POC)on 2022 BILIRUBIN UA (POCT) Negative Negative [facility] CLARITY UA (POCT) Clear [facility] COLOR UA (POCT) Yellow [facility] GLUCOSE UA (POCT) Negative Negative mg/dL [facility] HEMOGLOBIN/BLOOD UA (POCT) Negative Negative [facility] KETONE UA (POCT) Negative Negative mg/dL [facility] LEUKOCYTES UA (POCT) Trace Abnormal Negative [facility] NITRITE UA (POCT) Positive Abnormal Negative [facility] PH UA (POCT) 6.0 4.5 - 8.0 [facility] Protein Ql (U) Negative Negative mg/dL [facility] SPECIFIC GRAVITY UA (POCT) <=1.005 Abnormal 1.005 - 1.030 [facility] UROBILINOGEN UA (POCT) 0.2 E.U./dL Maria Luisa l E.U./dL [facility] CORONAVIRUS 2019 BY PCRon DATE OF SYMPTOM ONSET [[id number]]? [id number] Normal [facility] Comment on above: Order Comment: LUIS MCALLISTER Performed By: #### C OV19 #### [facility] [address] [place] [address] [facility] [address] [place] [address] SARS-CoV-2 (COVID-19) RNA RADHA+probe Ql (Unsp spec) Detected Abnormal Not Detected [facility] Comment on above: Order Comment: LUIS MCALLISTER Result Comment: . This test has received FDA Emergency Use Authorization (EUA) and has been verified by [facility]. This test is only authorized for the duration of time that circumstances exist to justify the authorization of the emergency use of in vitro diagnostic tests for the detection of SARS-CoV-2 virus and/or diagnosis of COVID-19 infection under section 564(b)(1) of the Act, 21 U.S.C. 360bbb-3(b)(1), unless the authorization is terminated or revoked sooner. [facility] is certified under CLIA-88 as qualified to perform high complexity testing. Testing is performed in the [facility] laboratory located at [address] [place] [address]. SARS-CoV-2/Flu/RSV Multiplex Test: Fact sheet for providers: https://www.fda.gov/media/069681/download Fact sheet for patients: https://www.fda.gov/media/416552/download Performed By: #### C OV19 #### [address] [place] [address] CORONAVIRUS 2019 BY PCRon Lab Specimen Source Nasal, Nasopharyngeal Normal [facility] Comment on above: Order Comment: LUIS QUINTANILLA [facility]LY [facility] Performed By: #### C OV19 #### [address] [place] [address] Coronavirus 2019 RNA by PCR, Symptomaticon 11-19-2021 Date and time of symptom onset [id number] -[facility] Work Phone: Coronavirus 2019 RNA by PCR, Symptomatic Detected Abnormal See Below -[facility] Work Phone: Comment on above: SOURCE: Nasal, Nasop haryngealReference Range: Not Detected.This test has received FDA Emergency Use Authorization (EUA) and has been verified by [facility]. This test is only authorized for the duration of time that circumstances exist to justify the authorization of the emergency use of in vitro diagnostic tests for the detection of SARS-CoV-2 virus and/or diagnosis of COVID-19 infection under section 564(b)(1) of the Act, 21 U.S.C. 360bbb-3(b)(1), unless the authorization is terminated or revoked sooner. [facility] is certified under CLIA-88 as qualified to perform high complexity testing. Testing is performed in the [facility] laboratory located at [address] [place] [address].SARS-CoV-2/Flu/RSV Multiplex Test: Fact sheet for providers: https://www.fda.gov/media/716552/downloadFact sheet for patients: https://www.fda.gov/media/385172/download SOURCE: Nasal, Nasop haryngealReference Range: Not Detected.This test has received FDA Emergency Use Authorization (EUA) and has been verified by [facility] ([facility]). This test is only authorized for the duration of time that circumstances exist to justify the authorization of the emergency use of in vitro diagnostic tests for the detection of SARS-CoV-2 virus and/or diagnosis of COVID-19 infection under section 564(b)(1) of the Act, 21 U.S.C. 360bbb-3(b)(1), unless the authorization is terminated or revoked sooner. [facility] is certified under CLIA-88 as qualified to perform high complexity testing. Testing is performed in the [facility] located at [address] [place] [address].SARS-CoV-2/Flu/RSV Multiplex Test: Fact sheet for providers: https://www.fda.gov/media/017851/downloadFact sheet for patients: https://www.[employer].gov/media/380573/download Date and time of symptom onset [facility] Work Phone: CORONAVIRUS 2019, SCREEN ASY MPTOMATICon 08-14-2021 SARS-CoV-2 (COVID-19) RNA RADHA+probe Ql (Unsp spec) Not detected Normal Not Detected [facility] Comment on above: Order Comment: LUIS [...] patient management decisions. Fact sheet for providers: https://www.fda.gov/media/350651/download Fact sheet for patients: https://www.fda.gov/media/632253/download This test has received FDA Emergency Use Authorization (EUA) and has been verified by [facility] ([facility]). This test is only authorized for the duration of time that circumstances exist to justify the authorization of the emergency use of in vitro diagnostic tests for the detection of SARS-CoV-2 virus and/or diagnosis of COVID-19 infection under section 564(b)(1) of the Act, 21 U.S.C. 360bbb-3(b)(1), unless the authorization is terminated or revoked sooner. [facility] is certified under CLIA-88 as qualified to perform high complexity testing. Testing is performed in the [facility] laboratories located at [address] [place] [address]. Performed By: #### C OVSC #### [address] [place] [address] DATE OF SYMPTOM ONSET [YYYYMMDD]? [facility] Comment on above: Order Comment: LUIS QUINTANILLA SKILLED Performed By: #### C OVSC #### [address] [place] [address] Lab Specimen Source Nasal, Nasopharyngeal [facility] Comment on above: Order Comment: LUIS QUINTANILLA SKILLED Performed By: #### C OVSC #### [address] [place] [address] HISTORY PHYSICALon HISTORY PHYSICAL HNO ID: [id number] Author: Kory Barone Service: Orthopaedic Surgery Author Type: Physician Type: HANDP Filed: 01/11/2021 10:51 AM Note Text: Kory Barone MD Department of Orthopaedics Orthopaedics [address] [facility] [address] Dept: [phone] Dept ? ? December 19, 2020 ? [...] is right hand dominant. 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 Dr. Mcdonald gave her Voltaren gel to [...] W/O OR W/BRUSH/WASH ? 04/13/2003 ? EGD [facility] Dr. Lundy - EGD W/O OR [...] depression, anxiety) ? ? Kory Barone MD [facility] NURSING PROGon 01-11-2021 NURSING PROG HNO ID: [id number] Author: Jose (Rn) STEPHANIE Thomas Service: Nursing Author Type: Registered Nurse Type: Nursing Progress Note Filed: 01/11/2021 10:26 AM Note Text: Dr. Barone at bedside for Left hand middle finger local block. RN at bedside, pt monitored throughout, BP 157/86 Temp 36.2 ?C (97.2 ?F) (Temporal Artery) Resp 16 SpO2 100% . Pt tolerated procedure without difficulty. [facility] OPERATIVE NOon 01-11-2021 OPERATIVE NO HNO ID: [id number] Author: Kory Barone Service: Orthopaedic Surgery Author Type: Physician Type: Operative Report Filed: 01/11/2021 10:52 AM Note Text: OPERATIVE/PROCEDURE REPORT LOG ID: [id number] Surgery/Procedure Date: 01/11/2021 Incision/Procedure Start Time: 10:37 AM Incision Close/Procedure End Time: 10:46 AM Surgeon(s)/Proceduralist( s) and Inspector And Adjuster [place] Head(s): Surgeon(s) and Role: * Kory Barone - Primary Registered Nurse Philatelic Consultant: Estefany (Rn) STEPHANIE Monteiro Procedure(s): left middle [...] 11, 2021 TIME: 10:52 AM PAGER/CONTACT #: [facility] 12-20-2020 [facility] Patient:Estuardo Villa MRN: Height:5' 3.78(1.62 m) Weight:163 [...] of unspecified site of elbow and forearm [GIQ5725] Esophageal dysphagia [R13.10] Globus sensation [R09.89] Epigastric pain [R10.13] Gastroesophageal reflux disease [K21.9] Allergies: Aleve [Naproxen Sodium] Bactrim [Sulfamethoxazole] Lipitor [Atorvastatin Calcium] Penicillins Tape [Adhesive Tape (Rosins)] Tylenol [Acetaminophen] Vicodin [Hydrocodone-Acetaminophe n] Date Verified: 01/11/21 Lab Values No results within the last 30 days for the following basenames: K,HCT Progress Notes ([facility]): Rose Smith Claire Hector 12/19/2020 4:50 PM Signed Please schedule patient for left middle trigger finger release under local anesthesia on 01/11/2021. Post op appointments and pre op COVID testing at [place]. Please sign pre op COVID order. Laurie Dia PA-C 12/20/2020 8:06 AM Signed COVID order signed. Rose Smith Claire Ma 12/23/2020 9:14 AM Signed Surgery has been scheduled as requested. Progress Notes ([facility]): Kory Barone MD 01/11/2021 7:35 AM Signed Kory Barone MD Department of Orthopaedics Orthopaedics [address] [place] [facility] [address] Dept: [phone] Dept December 19, 2020 CHIEF COMPLAINT: Established [...] is right hand dominant. 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 Dr. Mcdonald gave her Voltaren gel to [...] - EGD W/O OR W/BRUSH/WASH 04/13/2003 EGD [facility] Dr. Lundy - EGD W/O OR [...] anxiety) Kory Barone MD Previous Version Normal [facility] XR Hand - bilateral PA and L ateral and Obliqueon 08-24-2020 IMPRESSION: No acute pathology laboratory aide: HARJIT Transcribe Date/Time: Aug 24 2020 3:46P Dictated by : EDDIE GONGORA DO This examination was interpreted and the report reviewed and electronically signed by: EDDIE GONGORA DO on Aug 24 2020 3:48PM [facility] DIVISION OF RADIOLOGY * * *Final [...] dislocations are seen. DIVISION OF RADIOLOGY Provider, [facility] - 08/24/2020 * * *Final Report* * [...] dislocations are seen. IMPRESSION IMPRESSION: No acute pathology laboratory aide: HARJIT Transcribe Date/Time: Aug 24 2020 3:46P Dictated by : EDDIE GONGORA DO This examination was interpreted and the report reviewed and electronically signed by: EDDIE GONGORA DO on Aug 24 2020 3:48PM EST [facility] XR Hand - bilateral PA and L ateral and ObliqueOrdered By: Ccf Provider on 08-24-2020 [facility] XR Hand - bilateral PA and L ateral and Obliqueon 08-23-2020 Radiology Study observation (narrative) [facility] Emergency Room Note on 06-02-2018 [facility] Note Normal Replaced By [facility] [place] Patient Summary Documentson 06-02-2018 Patient Summary Documents Normal Replaced By [facility] [place] XR NECK SOFT TISSUEon 2017 XR NECK [...] PM Sign Date: 06/02/2018 1:00:47 PM Normal Replaced By [facility] [place] CR Foot Complete 3+ Views Nina sarahy 07-04-2017 CR Foot Complete 3+ Views Right Patient Name: ESTUARDO VILLA Diagnostic Radiology Exam Date/Time 07/04/2017 16:09:22 EDT Exam CR Foot Complete 3+ Views Right Ordering Physician IRMA ALEXANDER MICHELLE Accession Number [id number] CPT4 Codes 53870 () Reason For Exam right foot contusion, [...] Transcribed Date and Time: 07/04/2017 4:46 Normal [facility] CR Wrist Complete 3 Views [place] 06-04-2017 CR Wrist Complete 3 Views Left Patient Name: ESTUARDO VILLA Diagnostic Radiology Exam Date/Time 06/03/2017 23:16:30 EDT Exam CR Wrist Complete 3 Views Left Ordering Physician DO SANDERS JOSEPH M. Accession Number [id number] CPT4 Codes 46069 () Reason For Exam pain Report LEFT [...] ALFRED Transcribed Date and Time: 06/03/2017 11:36 [facility] Vital Signs Date Time Vital Sign Value Performing Clinician Facility 07-07-2025 18:12-0400 Body temperature 97.8 [degF] Dr. Justus Mcdonald MD Work Phone: 9(714)907-507446 [place] [address] 07-07-2025 18:12-0400 Diastolic blood pressure 84 mm[Hg] Dr. Justus Mcdonald MD Work Phone: 2(059)681-812146 [place] [address] 07-07-2025 18:12-0400 Heart rate 64 /min Dr. Justus Mcdonald MD Work Phone: 1(082)029-346246 [place] [address] 07-07-2025 18:12-0400 Respiratory rate 18 /min Dr. Justus Mcdonald MD Work Phone: 8(997)204-450746 [place] [address] 07-07-2025 18:12-0400 SaO2% (BldA) [Mass fraction] 100 % Dr. Justus Mcdonald MD Work Phone: 0(038)236-813046 [place] [address] 07-07-2025 18:12-0400 Systolic blood pressure 121 mm[Hg] Dr. Jsutus Mcdonald MD Work Phone: 1(134)371-280046 [place] [address] 07-07-2025 16:48-0400 Body height 162.[address] Justus Mcdonald MD Work Phone: 3(593)608-196546 [place] [address] 07-07-2025 16:48-0400 Body mass index (BMI) [Ratio] 26.2 kg/m2 Dr. Justus Mcdonald MD Work Phone: 0(761)029-266446 [place] [address] 07-07-2025 16:48-0400 Body weight 69.[address] Justus Mcdonald MD Work Phone: 7(659)208-338546 [place] [address] 07-07-2025 16:09-0400 Body mass index (BMI) [Ratio] 26.27 kg/m2 Justus Mcdonald MD Work Phone: [facility] 07-07-2025 16:09-0400 Body weight 68.95 kg Justus Mcdonald MD Work Phone: [facility] 07-07-2025 16:09-0400 Diastolic blood pressure 75 mm[Hg] Justus Mcdonald MD Work Phone: [place] [address]-27-2025 16:09-0400 Heart rate 75 /min Justus Mcdonald MD Work Phone: [facility] 07-07-2025 16:09-0400 SaO2% (BldA) [Mass fraction] 98 % Justus Mcdonald MD Work Phone: [facility] 07-07-2025 16:09-0400 Systolic blood pressure 144 mm[Hg] Justus Mcdonald MD Work Phone: [facility] 05-11-2025 09:29-0400 Body height 162 cm Arlet Suppan 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 Phone: [facility] 05-11-2025 09:29-0400 Body mass index (BMI) [Ratio] 26.1 kg/m2 Arlet Suppan 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 Phone: [facility] 05-11-2025 09:29-0400 Body weight 68.49 kg Arlet Suppan 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 Phone: [facility] 05-11-2025 09:29-0400 Diastolic blood pressure 82 mm[Hg] Arlet Suppan 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 Phone: [facility] 05-11-2025 09:29-0400 Heart rate 67 /min Arlet Suppan 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 Phone: [facility] 05-11-2025 09:29-0400 SaO2% (BldA) [Mass fraction] 98 % Arlet Suppan 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 Phone: [facility] 05-11-2025 09:29-0400 Systolic blood pressure 136 mm[Hg] Arlet Suppan 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 Phone: [facility] 03-29-2025 22:53-0400 Body temperature 98.6 [degF] Dr. Justus Mcdonald MD Work Phone: [facility] 03-29-2025 22:53-0400 Diastolic blood pressure 84 mm[Hg] Dr. Justus Mcdonald MD Work Phone: 6(397)360-068732 [place] [address] 03-29-2025 22:53-0400 Heart rate 78 /min Dr. Justus Mcdonald MD Work Phone: 8(665)064-895546 [place] [address] 03-29-2025 22:53-0400 Respiratory rate 16 /min Dr. Justus Mcdonald MD Work Phone: 9(078)495-340146 [place] [address] 03-29-2025 22:53-0400 SaO2% (BldA) [Mass fraction] 100 % Dr. Justus Mcdonald MD Work Phone: 0(250)559-259746 [place] [address] 03-29-2025 22:53-0400 Systolic blood pressure 132 mm[Hg] Dr. Justus Mcdonald MD Work Phone: 2(507)454-742546 [place] [address] 03-29-2025 20:22-0400 Body height 162.[address] Justus Mcdonald MD Work Phone: 9(019)018-380246 [place] [address] 03-29-2025 20:22-0400 Body mass index (BMI) [Ratio] 26.2 kg/m2 Dr. Justus Mcdonald MD Work Phone: 4(994)909-636146 [place] [address] 03-29-2025 20:22-0400 Body weight 69.[address] Justus Mcdonald MD Work Phone: 6(174)040-207846 [place] [address] 01-07-2025 10:34-0500 Body mass index (BMI) [Ratio] 27.46 kg/m2 Arlet Suppmoises 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 Phone: 2(286)108-290551 [place] [address] 01-07-2025 10:34-0500 Body temperature 97.7 [degF] Arlet Suppan 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 Phone: 3(593)840-030451 [place] [address] 01-07-2025 10:34-0500 Body weight 70.31 kg Arlet Suppan 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 Phone: 5(497)924-597951 [place] [address] 01-07-2025 10:34-0500 Diastolic blood pressure 80 mm[Hg] Arlet Suppan 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 Phone: 5(151)589-888851 [place] [address] 01-07-2025 10:34-0500 Heart rate 69 /min Arlet Suppan 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 Phone: [facility] 01-07-2025 10:34-0500 SaO2% (BldA) [Mass fraction] 98 % Arlet Grove 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 Phone: [facility] 01-07-2025 10:34-0500 Systolic blood pressure 128 mm[Hg] Arlet Grove 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 Phone: [facility] 01-04-2025 10:02-0500 Body mass index (BMI) [Ratio] 27.26 kg/m2 Nelson Mi MD Work Phone: [facility] 01-04-2025 10:02-0500 Body temperature 97.2 [degF] Nelson Mi MD Work Phone: [facility] 01-04-2025 10:02-0500 Body weight 69.8 kg Nelson Mi MD Work Phone: [facility] 01-04-2025 10:02-0500 Diastolic blood pressure 82 mm[Hg] Nelson Mi MD Work Phone: [facility] 01-04-2025 10:02-0500 Heart rate 70 /min Nelson Mi MD Work Phone: [facility] 01-04-2025 10:02-0500 Respiratory rate 16 /min Nelson Mi MD Work Phone: [facility] 01-04-2025 10:02-0500 SaO2% (BldA) [Mass fraction] 99 % Nelson Mi MD Work Phone: [facility] 01-04-2025 10:02-0500 Systolic blood pressure 126 mm[Hg] Nelson Mi MD Work Phone: [facility] 10-06-2024 11:44-0500 Body mass index (BMI) [Ratio] 27.53 kg/m2 Lisa PUENTES Work Phone: [facility] 10-06-2024 11:44-0500 Body temperature 98.6 [degF] Krislyn Aberegg PA Work Phone: [facility] 10-06-2024 11:44-0500 Body weight 70.5 kg Krislyn Aberegg PA Work Phone: [facility] 10-06-2024 11:44-0500 Diastolic blood pressure 78 mm[Hg] Krislyn Aberegg PA Work Phone: [facility] 10-06-2024 11:44-0500 Heart rate 70 /min Krislyn Aberegg PA Work Phone: [facility] 10-06-2024 11:44-0500 Respiratory rate 18 /min Krislyn Aberegg PA Work Phone: [facility] 10-06-2024 11:44-0500 SaO2% (BldA) [Mass fraction] 97 % Krislyn Aberegg PA Work Phone: [facility] 10-06-2024 11:44-0500 Systolic blood pressure 118 mm[Hg] Krislyn Aberegg PA Work Phone: [facility] 09-14-2024 10:09-0500 Body mass index (BMI) [Ratio] 27.34 kg/m2 Rolly Moomaw 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 Phone: [facility] 09-14-2024 10:09-0500 Body temperature 99.19 [degF] Rolly Moomaw 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 Phone: [facility] 09-14-2024 10:09-0500 Body weight 70 kg Rolly Moomaw 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 Phone: [facility] 09-14-2024 10:09-0500 Diastolic blood pressure 76 mm[Hg] Rolly Moomaw 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 Phone: [facility] 09-14-2024 10:09-0500 Heart rate 68 /min Rolly Moomaw 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 Phone: [facility] 09-14-2024 10:09-0500 Respiratory rate 14 /min Rolly Moomaw 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 Phone: [facility] 09-14-2024 10:09-0500 SaO2% (BldA) [Mass fraction] 98 % Rolly Moomaw 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 Phone: [facility] 09-14-2024 10:09-0500 Systolic blood pressure 118 mm[Hg] Rolly Moomaw 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 Phone: [facility] 06-29-2024 10:10-0400 Diastolic blood pressure 86 mm[Hg] Amber Haagen 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 Phone: [facility] 06-29-2024 10:10-0400 Heart rate 72 /min Amber Haagen 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 Phone: [facility] 06-29-2024 10:10-0400 Respiratory rate 16 /min Amber Haagen 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 Phone: [facility] 06-29-2024 10:10-0400 SaO2% (BldA) [Mass fraction] 97 % Amber Haagen 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 Phone: [facility] 06-29-2024 10:10-0400 Systolic blood pressure 134 mm[Hg] Amber Haagen 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 Phone: [facility] 06-15-2024 14:28-0400 Body height 160 cm Justus Mcdonald MD Work Phone: [facility] 06-15-2024 14:28-0400 Body mass index (BMI) [Ratio] 26.39 kg/m2 Justus Mcdonald MD Work Phone: [facility] 06-15-2024 14:28-0400 Body weight 67.59 kg Justus Mcdonald MD Work Phone: [facility] 06-15-2024 14:28-0400 Diastolic blood pressure 89 mm[Hg] Justus Mcdonald MD Work Phone: [facility] 06-15-2024 14:28-0400 Heart rate 67 /min Justus Mcdonald MD Work Phone: [facility] 06-15-2024 14:28-0400 Systolic blood pressure 140 mm[Hg] Justus Mcdonald MD Work Phone: [facility] 02-26-2024 11:12-0400 Body weight 67.04 kg Courtney Kellerer PA-C Work Phone: [facility] 02-26-2024 11:12-0400 Diastolic blood pressure 74 mm[Hg] Courtney Queener PA-C Work Phone: [facility] 02-26-2024 11:12-0400 Heart rate 71 /min Courtney Queener PA-C Work Phone: [facility] 02-26-2024 11:12-0400 Respiratory rate 18 /min Courtney Queener PA-C Work Phone: [facility] 02-26-2024 11:12-0400 SaO2% (BldA) [Mass fraction] 98 % Courtney Kellerer PA-C Work Phone: [facility] 02-26-2024 11:12-0400 Systolic blood pressure 109 mm[Hg] Courtney Queener PA-C Work Phone: [facility] 01-09-2024 07:13-0500 Body temperature 100.4 [degF] Nina Athy PA-C Work Phone: [facility] 01-09-2024 07:13-0500 Body weight 65.77 kg Nina Athy PA-C Work Phone: [facility] 01-09-2024 07:13-0500 Diastolic blood pressure 82 mm[Hg] Nina Athy PA-C Work Phone: [facility] 01-09-2024 07:13-0500 Heart rate 80 /min Nina Athy PA-C Work Phone: [facility] 01-09-2024 07:13-0500 Respiratory rate 18 /min Nina Athy PA-C Work Phone: [facility] 01-09-2024 07:13-0500 SaO2% (BldA) [Mass fraction] 100 % Nina Blevinsy PA-C Work Phone: [facility] 01-09-2024 07:13-0500 Systolic blood pressure 119 mm[Hg] Nina Blevinsy PA-C Work Phone: [facility] 09-24-2023 15:37-0500 Body weight 66.13 kg Courtney Kellerer PA-C Work Phone: [facility] 09-24-2023 15:37-0500 Diastolic blood pressure 76 mm[Hg] Courtney Kellerer PA-C Work Phone: [facility] 09-24-2023 15:37-0500 Heart rate 77 /min Courtney Kellerer PA-C Work Phone: [facility] 09-24-2023 15:37-0500 Respiratory rate 18 /min Courtney Kellerer PA-C Work Phone: [facility] 09-24-2023 15:37-0500 SaO2% (BldA) [Mass fraction] 100 % Courtney Kellerer PA-C Work Phone: [facility] 09-24-2023 15:37-0500 Systolic blood pressure 137 mm[Hg] Courtney Kellerer PA-C Work Phone: [facility] 08-24-2023 08:16-0400 Body temperature 99.3 [degF] Lucy Ross APRN.COIN ROLLING MACHINE OPERATOR Work Phone: [facility] 08-24-2023 08:16-0400 Body weight 66.22 kg Lucy Ross APRN.COIN ROLLING MACHINE OPERATOR Work Phone: [facility] 08-24-2023 08:16-0400 Diastolic blood pressure 89 mm[Hg] Lucy Ross APRN.COIN ROLLING MACHINE OPERATOR Work Phone: [facility] 08-24-2023 08:16-0400 Heart rate 74 /min Lucy Ross APRN.COIN ROLLING MACHINE OPERATOR Work Phone: [facility] 08-24-2023 08:16-0400 Respiratory rate 20 /min Lucy Ross APRN.COIN ROLLING MACHINE OPERATOR Work Phone: [facility] 08-24-2023 08:16-0400 SaO2% (BldA) [Mass fraction] 99 % Lucy Rsos APRN.COIN ROLLING MACHINE OPERATOR Work Phone: [facility] 08-24-2023 08:16-0400 Systolic blood pressure 167 mm[Hg] Lucy Ross APRN.COIN ROLLING MACHINE OPERATOR Work Phone: [facility] 08-09-2023 13:11-0400 Body weight 65.41 kg NA Vital PA-C Work Phone: [facility] 08-09-2023 13:11-0400 Diastolic blood pressure 78 mm[Hg] NA Vital PA-C Work Phone: [facility] 08-09-2023 13:11-0400 Heart rate 68 /min NA Vital PA-C Work Phone: [facility] 08-09-2023 13:11-0400 Respiratory rate 16 /min NA Vital PA-C Work Phone: [facility] 08-09-2023 13:11-0400 SaO2% (BldA) [Mass fraction] 99 % NA Vital PA-C Work Phone: [facility] 08-09-2023 13:11-0400 Systolic blood pressure 118 mm[Hg] NA Vital PA-C Work Phone: [facility] 06-11-2023 12:37-0400 Diastolic blood pressure 84 mm[Hg] Courtney Queener PA-C Work Phone: [facility] 06-11-2023 12:37-0400 Heart rate 73 /min Courtney Queener PA-C Work Phone: [facility] 06-11-2023 12:37-0400 Systolic blood pressure 120 mm[Hg] Courtney Queener PA-C Work Phone: [facility] 06-11-2023 12:31-0400 Body temperature 97.39 [degF] Courtney Kellerer PA-C Work Phone: [facility] 06-11-2023 12:31-0400 Body weight 67.86 kg Courtney Anderson PA-C Work Phone: [facility] 06-11-2023 12:31-0400 Respiratory rate 18 /min Courtney Anderson PA-C Work Phone: [facility] 06-11-2023 12:31-0400 SaO2% (BldA) [Mass fraction] 98 % Courtney Anderson PA-C Work Phone: [facility] 05-20-2023 09:14-0400 Body weight 68.04 kg Justus Mcdonald MD Work Phone: [facility] 05-20-2023 09:14-0400 Diastolic blood pressure 72 mm[Hg] Justus Mcdonald MD Work Phone: [facility] 05-20-2023 09:14-0400 Heart rate 70 /min Justus Mcdonald MD Work Phone: [facility] 05-20-2023 09:14-0400 SaO2% (BldA) [Mass fraction] 98 % Justus Mcdonald MD Work Phone: [facility] 05-20-2023 09:14-0400 Systolic blood pressure 122 mm[Hg] Justus Mcdonald MD Work Phone: [facility] 05-07-2023 11:09-0400 Body temperature 98.2 [degF] Roger Russelli DO Work Phone: [facility] 05-07-2023 11:09-0400 Body weight 69.63 kg Roger Masci DO Work Phone: [facility] 05-07-2023 11:09-0400 Diastolic blood pressure 81 mm[Hg] Roger Masci DO Work Phone: [facility] 05-07-2023 11:09-0400 Heart rate 60 /min Roger Yvonnei DO Work Phone: [facility] 05-07-2023 11:09-0400 SaO2% (BldA) [Mass fraction] 100 % Roger Russelli DO Work Phone: [facility] 05-07-2023 11:09-0400 Systolic blood pressure 138 mm[Hg] Roger Masci DO Work Phone: [facility] 03-14-2023 10:59-0400 Body temperature 98.4 [degF] Krislyn Aberegg PA Work Phone: [facility] 03-14-2023 10:59-0400 Body weight 71.03 kg Krislyn Aberegg PA Work Phone: [facility] 03-14-2023 10:59-0400 Diastolic blood pressure 76 mm[Hg] Krislyn Aberegg PA Work Phone: [facility] 03-14-2023 10:59-0400 Heart rate 58 /min Krislyn Aberegg PA Work Phone: [facility] 03-14-2023 10:59-0400 Respiratory rate 18 /min Krislyn Aberegg PA Work Phone: [facility] 03-14-2023 10:59-0400 SaO2% (BldA) [Mass fraction] 98 % Krislyn Aberegg PA Work Phone: [facility] 03-14-2023 10:59-0400 Systolic blood pressure 128 mm[Hg] Krislyn Aberegg PA Work Phone: [facility] 03-08-2023 13:29-0400 Body height 162.5 cm Roger Masci DO Work Phone: [facility] 03-08-2023 13:29-0400 Body temperature 99.5 [degF] Roger Masci DO Work Phone: [facility] 03-08-2023 13:29-0400 Body weight 71.67 kg Roger Masci DO Work Phone: [facility] 03-08-2023 13:29-0400 Diastolic blood pressure 76 mm[Hg] Roger Masci DO Work Phone: [facility] 04-28-2023 13:29-0400 Heart rate 58 /min Roger Unger DO Work Phone: [facility] 03-08-2023 13:29-0400 SaO2% (BldA) [Mass fraction] 95 % Roger Unger DO Work Phone: [facility] 03-08-2023 13:29-0400 Systolic blood pressure 116 mm[Hg] Roger Unger DO Work Phone: [facility] 03-06-2023 14:08-0400 Body temperature 98.1 [degF] Treatment Wstr Work Phone: [facility] 03-06-2023 14:08-0400 Diastolic blood pressure 68 mm[Hg] Treatment Wstr Work Phone: [facility] 03-06-2023 14:08-0400 Heart rate 55 /min Treatment Wstr Work Phone: [facility] 03-06-2023 14:08-0400 Systolic blood pressure 138 mm[Hg] Treatment Wstr Work Phone: [facility] 02-25-2023 13:47-0400 Body temperature 97.7 [degF] Treatment Wstr Work Phone: [facility] 02-25-2023 13:47-0400 Diastolic blood pressure 68 mm[Hg] Treatment Wstr Work Phone: [facility] 02-25-2023 13:47-0400 Heart rate 58 /min Treatment Wstr Work Phone: [facility] 02-25-2023 13:47-0400 SaO2% (BldA) [Mass fraction] 96 % Treatment Wstr Work Phone: [facility] 02-25-2023 13:47-0400 Systolic blood pressure 128 mm[Hg] Treatment Wstr Work Phone: [facility] 02-21-2023 14:22-0400 Body temperature 98.49 [degF] Treatment Wstr Work Phone: [facility] 02-21-2023 14:22-0400 Diastolic blood pressure 61 mm[Hg] Treatment Wstr Work Phone: [facility] 02-21-2023 14:22-0400 Heart rate 66 /min Treatment Wstr Work Phone: [facility] 02-21-2023 14:22-0400 Systolic blood pressure 122 mm[Hg] Treatment Wstr Work Phone: [facility] 02-07-2023 15:38-0400 Diastolic blood pressure 74 mm[Hg] Treatment Wstr Work Phone: [facility] 02-07-2023 15:38-0400 Heart rate 66 /min Treatment Wstr Work Phone: [facility] 02-07-2023 15:38-0400 Systolic blood pressure 126 mm[Hg] Treatment Wstr Work Phone: [facility] 02-07-2023 14:53-0400 Body temperature 98.01 [degF] Treatment Wstr Work Phone: [facility] 02-07-2023 14:53-0400 Respiratory rate 20 /min Treatment Wstr Work Phone: [facility] 02-04-2023 15:16-0400 Body height 163 cm NA Vital PA-C Work Phone: [facility] 02-04-2023 15:16-0400 Body weight 75.3 kg NA Vital PA-C Work Phone: [facility] 02-04-2023 15:16-0400 Diastolic blood pressure 72 mm[Hg] NA Vital PA-C Work Phone: [facility] 02-04-2023 15:16-0400 Heart rate 62 /min NA Vital PA-C Work Phone: [facility] 02-04-2023 15:16-0400 Respiratory rate 16 /min NA Vital PA-C Work Phone: [facility] 02-04-2023 15:16-0400 SaO2% (BldA) [Mass fraction] 99 % NA Vital PA-C Work Phone: [facility] 02-04-2023 15:16-0400 Systolic blood pressure 120 mm[Hg] JORGE LUIS Vital PA-C Work Phone: [facility] 01-29-2023 15:23-0400 Body height 162.6 cm Pearl Segundo MD Work Phone: [facility] 01-29-2023 15:23-0400 Body temperature 98.01 [degF] Pearl Segundo MD Work Phone: [facility] 01-29-2023 15:23-0400 Body weight 74.39 kg Pearl Segundo MD Work Phone: [facility] 01-29-2023 15:23-0400 Diastolic blood pressure 73 mm[Hg] Pearl Segundo MD Work Phone: [facility] 01-29-2023 15:23-0400 Heart rate 60 /min Pearl Segundo MD Work Phone: [facility] 01-29-2023 15:23-0400 Systolic blood pressure 124 mm[Hg] Pearl Segundo MD Work Phone: [facility] 12-03-2022 13:38-0500 Diastolic blood pressure 100 mm[Hg] Amber Habreanna 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 Phone: [facility] 12-03-2022 13:38-0500 Heart rate 67 /min Amber Haagen 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 Phone: [facility] 12-03-2022 13:38-0500 Respiratory rate 18 /min Amber Mooreagen 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 Phone: [facility] 12-03-2022 13:38-0500 SaO2% (BldA) [Mass fraction] 97 % Amber Haagen 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 Phone: [facility] 12-03-2022 13:38-0500 Systolic blood pressure 160 mm[Hg] Amber Haagen 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 Phone: [facility] 11-27-2022 08:58-0500 Body height 163.8 cm Eva Kalka PA-C Work Phone: [facility] 11-27-2022 08:58-0500 Body weight 78.16 kg Eva Kalka PA-C Work Phone: [facility] 11-27-2022 08:58-0500 Diastolic blood pressure 72 mm[Hg] Eva Kalka PA-C Work Phone: [facility] 11-27-2022 08:58-0500 Heart rate 89 /min Eva Kalka PA-C Work Phone: [facility] 11-27-2022 08:58-0500 Systolic blood pressure 122 mm[Hg] Eva Kalka PA-C Work Phone: [facility] 01-29-2022 11:32-0400 Diastolic blood pressure 78 mm[Hg] Aida Villasenor 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 Phone: [facility] 01-29-2022 11:32-0400 Systolic blood pressure 146 mm[Hg] Aida Villasenor 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 Phone: [facility] 01-29-2022 11:30-0400 Body height 164 cm Aida Villasenor 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 Phone: [facility] 01-29-2022 11:30-0400 Body weight 69.85 kg Aida Villasenor 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 Phone: [facility] 01-29-2022 11:30-0400 Heart rate 99 /min Aida Villasenor 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 Phone: [facility] 01-29-2022 11:30-0400 SaO2% (BldA) [Mass fraction] 99 % Aida Villasenor 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 Phone: [facility] Encounters Encounter Date Encounter Type Care Provider Facility Start: 07-08-2025 End: 07-08-2025 Refill Justus Mcdonald MD Work Phone: [facility] [place] Comment on above: Refill Request Start: 07-07-2025 End: 07-07-2025 Emergency department patient visit Dr. Jutsus Mcdonald MD Work Phone: -Emergency Department Work Phone: Start: 07-07-2025 End: 07-07-2025 Patient encounter procedure Justus Mcdonald MD Work Phone: [facility] Comment on above: Pain of left lower e xtremity (Primary Dx); Factor V Leiden (HCC); History of pulmonary embolism Start: 07-07-2025 End: 07-07-2025 ambulatory JUSTUS MCDONALD Facility:[facility] Start: 07-06-2025 End: 07-06-2025 Follow-up encounter [place] 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 Phone: [facility] Start: 07-05-2025 End: 07-05-2025 ambulatory ARLET Barker SUPPMOISES Facility:[facility] Start: 06-07-2025 End: 06-08-2025 Refill Justus Mcdonald MD Work Phone: [facility] Comment on above: Refill Request Start: 05-11-2025 End: 05-11-2025 Patient encounter procedure [place] 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 Phone: [facility] Comment on above: Migraine without aur a and without status migrainosus, not intractable (Primary Dx); Anxiety; Mixed hyperlipidemia; Gastroesophageal reflux disease without esophagitis; Factor V Leiden (HCC); Nausea; Screening for depression; Wellness examination Start: 05-11-2025 End: 05-11-2025 Patient encounter status [place] 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 Justus Mcdonald MD Work Phone: -Emergency Department Work Phone: Start: 03-10-2025 End: 03-10-2025 Telephone encounter Justus Mcdonald MD Work Phone: [facility] [place] Comment on above: Forms Start: 03-09-2025 End: 03-09-2025 Telephone encounter Justus Mcdonald MD Work Phone: [facility] [place] Comment on above: Letter Start: 03-02-2025 End: 03-02-2025 Refill Justus Mcdonald MD Work Phone: [facility] [place] Comment on above: Refill Request Start: 01-07-2025 End: 01-07-2025 Office outpatient visit 15 minutes [place] 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 Phone: [facility] [place] Comment on above: Acute bronchitis, un specified organism (Primary Dx) Start: 01-07-2025 End: 01-07-2025 ambulatory ARLET A RADHAAN Facility:[facility] Start: 01-04-2025 End: 01-04-2025 Subsequent hospital visit by physician Xr [facility] [place] Work Phone: Radiology Comment on above: Subacute cough [R05. 2] Start: 01-04-2025 End: 01-04-2025 ambulatory JUSTUS MCDONALD Facility:[facility] Start: 01-04-2025 End: 01-04-2025 Office outpatient visit 25 minutes Nelson Mi MD Work Phone: [facility] Comment on above: Subacute cough (Prim jaimie Dx) Start: 10-06-2024 End: 10-06-2024 Subsequent hospital visit by physician Xr [facility] [place] Work Phone: Radiology Comment on above: Acute cough [R05.1] Start: 10-06-2024 End: 10-06-2024 ambulatory JUSTUS HARRY Facility:[facility] Start: 10-06-2024 End: 10-06-2024 Patient encounter procedure Lisa PUENTES Work Phone: [facility] Comment on above: Acute cough (Primary Dx); URI, acute Start: 09-18-2024 End: 09-18-2024 Unlisted evaluation and management service Amber Lenz APRN.COIN ROLLING MACHINE OPERATOR Work Phone: [facility] [place] Comment on above: Patient left without being seen (Primary Dx) Start: 09-18-2024 End: 09-18-2024 ambulatory AMBER LENZ Facility:[facility] Start: 09-14-2024 End: 09-14-2024 ambulatory JUSTUS MCDONALD Facility:[facility] Start: 09-14-2024 End: 09-14-2024 Patient encounter procedure Rloly Keen 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 Phone: [facility] Comment on above: COVID-19 (Primary Dx ) Start: 08-28-2024 End: 08-28-2024 ambulatory [facility] [place] Work Phone: [facility] [place] Start: 08-28-2024 End: 08-28-2024 Patient encounter procedure [facility] Nurse [place] Work Phone: [facility] [place] Start: 08-12-2024 End: 08-28-2024 Refill Courtney Anderson PA-C Work Phone: Neurology Comment on above: Refill Request Start: 07-29-2024 End: 07-29-2024 Refill Justus Mcdonald MD Work Phone: [facility] [place] Comment on above: Refill Request Start: 07-22-2024 End: 07-22-2024 ambulatory Kenyon PUENTES Facility:[facility] Start: 06-30-2024 End: 09-04-2024 Telephone encounter Amber Lenz APRN.COIN ROLLING MACHINE OPERATOR Work Phone: [facility] [place] Comment on above: Results Start: 06-29-2024 End: 06-29-2024 Office outpatient visit 25 minutes Amber Lenz APRN.COIN ROLLING MACHINE OPERATOR Work Phone: [facility] [place] Comment on [...] 06-15-2024 End: 06-15-2024 ambulatory Nurse Intm/Famp Triage [facility] Work Phone: Nurse Phone Triage Comment on above: black stools Start: 06-05-2024 Refill Eva PUENTES-C Work Phone: [facility] [place] Comment on above: Refill Request Start: 04-01-2024 ambulatory Justus Mcdonald MD Work Phone: Internal Medicine [facility] Start: 02-26-2024 End: 02-26-2024 Patient encounter procedure Courtney PUENTES-C Work Phone: Neurology Comment on above: Headache, unspecifie d headache type (Primary Dx); Migraine without aura and without status migrainosus, not intractable Start: 01-30-2024 Telephone encounter Courtney PUENTES-C Work Phone: Neurology Comment on above: mdication problem Start: 01-09-2024 End: 01-09-2024 Patient encounter procedure Nina PUENTES-C Work Phone: [facility] Comment on above: Acute non-recurrent [...] Telephone encounter Allison Chen APRN.CNP Work Phone: [facility] Comment on above: Patient Question Start: 08-24-2023 End: 08-24-2023 Patient encounter procedure Lucy Rex TRAMMELL.COIN ROLLING MACHINE OPERATOR Work Phone: [facility] Comment on above: Rhinosinusitis (Prim jaimie Dx) Start: 08-15-2023 Telephone encounter Truong Hogan ezio TRAMMELL.COIN ROLLING MACHINE OPERATOR Work Phone: [facility] Comment on above: Results Start: 08-09-2023 End: 08-09-2023 Patient encounter procedure Luis Trent Vital PA-C Work Phone: [facility] [place] Comment on above: Microhematuria (Prim jaimie Dx); [...] Neurology Comment on above: [facility] Start: 06-11-2023 End: 06-11-2023 Patient encounter procedure Courtney Anderson PA-C Work Phone: Neurology Comment on above: Migraine without aur a and without status migrainosus, not intractable (Primary Dx); Headache, unspecified headache type; Vertigo Start: 06-07-2023 Telephone encounter Justus Mcdonald MD Work Phone: [facility] [place] Comment on above: MRI Brain appeal Start: 05-30-2023 Telephone encounter Justus Mcdonald MD Work Phone: [facility] Comment on above: Patient Update (Aaron er needs sent this am) Start: 05-28-2023 Refill Eva Morton PA-C Work Phone: [facility] [place] Comment on above: Refill Request Start: 05-20-2023 End: 05-20-2023 Patient encounter procedure Justus Mcdonald MD Work Phone: [facility] Comment on above: Other migraine witho ut status migrainosus, not intractable (Primary Dx); Daily headache; Motion sickness, subsequent encounter; Anxiety; Hot flashes Start: 05-17-2023 Telephone encounter Justus Mcdonald MD Work Phone: [facility] Comment on above: Patient Update Start: 05-16-2023 ambulatory Amber Lenz MARTIN Work Phone: [facility] Comment on above: Meclizine 12.5 mg Start: 05-07-2023 End: 05-07-2023 ambulatory Roger Unger DO Work Phone: Hematology/Oncology Comment on above: Iron deficiency anem ia due to chronic blood loss (Primary Dx); Factor V Leiden (HCC) Start: 05-07-2023 End: 05-07-2023 Patient encounter procedure Roger Unger DO Work Phone: [facility] Start: 05-06-2023 Telephone encounter Roger john DO Work Phone: Hematology/Oncology Comment on above: Appointment Start: 03-19-2023 Telephone encounter Georgi Salcido MD Work Phone: General Surgery Comment on above: 04/18/2023 colon/egd a sc Start: 03-14-2023 End: 03-14-2023 Subsequent hospital visit by physician Xr [facility] [place] Work Phone: Radiology Comment on above: Acute right-sided th oracic back pain [M54.6] Start: 03-14-2023 End: 03-14-2023 Patient encounter procedure Lisa PUENTES Work Phone: [facility] Comment on above: Acute right-sided th oracic back pain (Primary Dx); Rib pain on right side Start: 03-08-2023 End: 03-08-2023 ambulatory Roger Unger DO Work Phone: Hematology/Oncology Comment on above: Iron deficiency anem ia due to chronic blood loss (Primary Dx); Factor V Leiden (HCC) Start: 03-08-2023 End: 03-08-2023 Patient encounter procedure Roger Mj Cornel OSORIO Work Phone: [facility] Start: 03-06-2023 End: 03-06-2023 ambulatory Treatment Rm 13 Jorge [facility] Work Phone: Hematology/Oncology Comment on above: Iron deficiency anem ia due to chronic blood loss (Primary Dx) Start: 02-25-2023 End: 02-25-2023 ambulatory Treatment Rm 13 Jorge [facility] Work Phone: Hematology/Oncology Comment on above: Iron deficiency anem ia due to chronic blood loss (Primary Dx) Start: 02-25-2023 Documentation procedure Mammog anna Coordinator [facility] Start: 02-25-2023 Letter encounter Mammography Coordinator [facility] Department Start: 02-22-2023 End: 02-22-2023 Subsequent hospital visit by physician Screen Mammo [facility] Mammogram Comment on above: Encounter for screen ing mammogram for breast cancer [Z12.31] Start: 02-21-2023 End: 02-21-2023 ambulatory Treatment Rm 8 [facility] Work Phone: Hematology/Oncology Comment on [...] End: 02-07-2023 ambulatory Treatment Rm 11 Jorge [facility] Work Phone: Hematology/Oncology Comment on [...] status Luis Trent Vital PA-C Work Phone: [facility] Start: 01-29-2023 End: 01-29-2023 ambulatory Pearl Segundo MD Work Phone: Hematology/Oncology Comment on above: Iron deficiency anem ia due to chronic blood loss (Primary Dx); Factor V Leiden (HCC) Start: 01-29-2023 End: 01-29-2023 Patient encounter procedure Pearl Segundo MD Work Phone: [facility] Start: 01-25-2023 Telephone encounter Amber carlos APRN.COIN ROLLING MACHINE OPERATOR Work Phone: [facility] Comment on above: Results Start: 01-02-2023 ambulatory Justus Mcdonald MD Work Phone: Internal Medicine [facility] Start: 12-21-2022 ambulatory Vince Kang MD Work Phone: Ambulatory Surgery Start: 12-04-2022 End: 12-04-2022 ambulatory Ranjit Murguia PT [facility] Comment on above: Acute pain of right knee (Primary Dx) Start: 12-03-2022 Refill Eva Morton PA-C Work Phone: [facility] [place] Comment on above: Refill Request Start: 12-03-2022 End: 12-03-2022 Office outpatient visit 25 minutes Amber Lenz APRN.COIN ROLLING MACHINE OPERATOR Work Phone: [facility] Comment on above: Acute pain of right knee (Primary Dx) Start: 11-27-2022 End: 11-27-2022 Patient encounter procedure Eva Morton PA-C Work Phone: [facility] [place] Comment on above: Hiatal hernia with G ERD and esophagitis (Primary Dx); Chronic nausea; Screening for colon cancer; Dyspepsia; Nausea Start: 10-17-2022 Refill Justus Mcdonald MD Work Phone: Family Medicine [place] Comment on above: Refill Request Start: 08-08-2022 Telephone encounter Justus Mcdonald MD Work Phone: [facility] [place] Comment on above: Insurance Authorizat ion Start: 08-07-2022 Refill Justus Mcdonald MD Work Phone: [facility] [place] Comment on above: Refill Request Start: 06-11-2022 Telephone encounter Aida Villasenor 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 Phone: Gastroenterology Comment on above: Medication Request Start: 04-09-2022 Refill Aida Villasenor APR N.COIN ROLLING MACHINE OPERATOR Work Phone: Gastroenterology Comment on above: Refill Request Start: 02-01-2022 Telephone encounter Aida Villasenor 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 Phone: Gastroenterology Comment on above: Insurance Authorizat ion Start: 01-31-2022 Refill Aida Villasenor APR N.COIN ROLLING MACHINE OPERATOR Work Phone: Gastroenterology Comment on above: Refill Request Start: 01-29-2022 End: 01-29-2022 Patient encounter procedure Aida Villasenor 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 Phone: Gastroenterology Comment on above: Gastroesophageal ref lux disease with esophagitis without hemorrhage (Primary Dx) Refill Request Start: 01-29-2022 Telephone encounter Aida Villasenor 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 Phone: Gastroenterology Comment on above: Medication Problem Start: 01-24-2022 ambulatory Justus Mcdonald MD Work Phone: Internal Medicine [facility] Start: 11-20-2021 Chart Update Homero kern MD Work Phone: [facility] Work Phone: Start: 08-23-2020 End: 08-23-2020 Subsequent hospital visit by physician Xr [facility] [place] Work Phone: Radiology Comment on above: Bilateral hand pain [M79.641, M79.642] Start: 06-02-2018 End: 06-02-2018 Emergency department patient visit PARRIS KNOWLES Facility:B Start: 07-04-2017 Ambulatory Farzana Alexander [facility] Start: 06-04-2017 Ambulatory Sang Sanders [facility] Procedures Date Procedure Procedure Detail Performing Clinician Start: 05-11-2025 Adult depression scr eening assessment [place] 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 Phone: Start: 03-29-2025 Computed tomography of [...] - S theresa or Plasma Amber Lenz 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 Phone: Start: 03-14-2023 Radex ribs uni [...] DTaP,Tdap,Td Vaccine (3 - Td or Tdap) [facility] Start: 06-29-2029 Lipid panel Lipid Screening [facility] Start: 05-07-2029 Urine microalbumin profile [facility] Start: 01-24-2028 Lipid 1996 panel - Serum or Plasma Lipid Screening [facility] Start: 01-24-2028 Lipid panel Lipid Screening [facility] Start: 01-24-2028 LIPID SCREEN LIPID SCREEN [facility] Start: 06-29-2027 Diabetes Screening Diabetes Screenin g [facility] Start: 06-15-2027 Diabetes Screening Diabetes Screenin g [facility] Start: 05-11-2026 Covid-19 Vaccine () Covid-19 Vaccine () [facility] Comment on above: Postponed from 07/12 (Declined at this time) Start: 05-11-2026 Depression Screening Depression Scre ening [facility] Start: 01-23-2026 DIABETES SCREEN DIABETES SCREEN [facility] Start: 01-23-2026 Diabetes Screening Diabetes Screenin g [facility] Start: 07-16-2025 LIPID SCREEN LIPID SCREEN [facility] Start: 07-12-2025 Influenza vaccination Influenza Vacc ine (#1) [facility] Start: 07-07-2025 [facility] Start: 07-07-2025 End: 07-07-2025 Patient encounter procedure [facility] [place] Comment on above: physical follow up medication Start: 06-28-2025 End: 09-27-2025 [facility] Lab Routine Gastroesophageal reflux disease without esophagitis Nausea Expected: 06/28/2025, Expires: 09/27/2025 [facility] Work Phone: Comment on above: Expected: 06/28/2025 , Expires: 09/27/2025 Start: 06-16-2025 Screening for malign ant neoplasm of colon [facility] Start: 03-29-2025 [facility] Start: 08-10-2024 End: 08-10-2024 Patient encounter procedure 08/10/2024 6:40 PM EDT Office Visit Family Medicine [place] [address] [facility] [place] [address] Amber Lenz APRN.COIN ROLLING MACHINE OPERATOR [address] [place] [address] 2 week follow up (anxiety/BP) [facility] [place] Comment on above: 2 week follow up (an xiety/BP) Start: 07-12-2024 Covid-19 Vaccine () Covid-19 Vaccine () [facility] Start: 07-12-2024 Covid-19 Vaccine () Covid-19 Vaccine () [facility] Start: 07-12-2024 Influenza vaccination Influenza Vacc ine (#1) [facility] Start: 06-30-2024 End: 06-30-2024 Patient encounter procedure 06/30/2024 3:45 PM EDT Office Visit Neurology [address] [place] [address] Courtney Anderson PA-C [address] [facility] [place] [address] 3 mth follow up Migraine Neurology Comment on above: 3 mth follow up Migr rena Start: 06-29-2024 End: 06-29-2024 Patient encounter procedure 06/29/2024 10:20 AM EDT Office Visit Family Medicine [place] [address] [place] [address] Amber Lenz, VALERI.COIN ROLLING MACHINE OPERATOR [address] [facility] [place] [address] 2 week follow up (anxiety/BP) [facility] [place] Comment on above: 2 week follow up (an xiety/BP) Start: 06-16-2024 End: 06-16-2025 25-hydroxyvitamin D3 [Mass/volume] in Serum or Plasma VITAMIN D 25 HYDROXY Lab Routine Hypercalcemia Hyperkalemia Expected: 06/16/2024, Expires: 06/16/2025 [facility] Work Phone: Comment on above: Expected: 06/16/2024 , Expires: 06/16/2025 Start: 06-16-2024 End: 09-15-2024 Basic metabolic 2000 panel - Serum or Plasma BASIC METABOLIC PANEL Lab Routine Hypercalcemia Hyperkalemia Expected: 06/16/2024, Expires: 09/15/2024 [facility] Comment on above: Expected: 06/16/2024 , Expires: 09/15/2024 Start: 06-16-2024 End: 06-16-2025 Calcium.ionized [Moles/volume] in Blood CALCIUM, IONIZED Lab Routine Hypercalcemia Hyperkalemia Expected: 06/16/2024, Expires: 06/16/2025 [facility] Comment on above: Expected: 06/16/2024 , Expires: 06/16/2025 Start: 06-16-2024 End: 06-16-2025 Parathyrin.intact [Mass/volume] in Serum or Plasma PTH INTACT Lab Routine Hypercalcemia Hyperkalemia Expected: 06/16/2024, Expires: 06/16/2025 [facility] Comment on above: Expected: 06/16/2024 , Expires: 06/16/2025 Start: 06-15-2024 End: 09-14-2024 CBC W Auto Differential panel - Blood [facility] Work Phone: Comment on above: Expected: 06/15/2024 , Expires: 09/14/2024 Start: 06-15-2024 End: 09-14-2024 Comprehensive metabolic 2000 panel - Serum or Plasma [facility] Comment on above: Expected: 06/15/2024 , Expires: 09/14/2024 Start: 06-15-2024 End: 09-14-2024 Lipase [Enzymatic activity/volume] in Serum or Plasma [facility] Comment on above: Expected: 06/15/2024 , Expires: 09/14/2024 Start: 04-20-2024 DIABETES SCREEN DIABETES SCREEN [facility] Start: 02-23-2024 Mammography [facility] Start: 02-23-2024 Screening for malign ant neoplasm of breast Mammogram Screening [facility] Start: 02-05-2024 COVID-19 VACCINE (4 - Booster for Pfizer series) COVID-19 VACCINE (4 - Booster for Pfizer series) [facility] Comment on above: Postponed from 10/10 (Declined at this time) Start: 02-05-2024 COVID-19 VACCINE (4 - Pfizer series) COVID-19 VACCINE (4 - Pfizer series) [facility] Comment on above: Postponed from 10/10 (Declined at this time) Start: 11-11-2023 Behavioral Health Screening Behavioral Health Screening [facility] Start: 11-11-2023 Depression Assessment Depression Ass essment [facility] Start: 07-12-2023 Covid-19 Vaccine () Covid-19 Vaccine () [facility] Start: 07-12-2023 Influenza vaccination INFLUENZA (#1) [facility] Start: 05-20-2023 End: 07-20-2023 Estradiol (E2) [Mass/volume] in Serum or Plasma [facility] Work Phone: Comment on above: Expected: 05/20/2023 , Expires: 07/20/2023 Start: 05-20-2023 End: 07-20-2023 Follitropin [Units/volume] in Serum or Plasma [facility] Work Phone: Comment on above: Expected: 05/20/2023 , Expires: 07/20/2023 Start: 05-20-2023 End: 07-20-2023 Lutropin [Units/volume] in Serum or Plasma [facility] Work Phone: Comment on above: Expected: 05/20/2023 , Expires: 07/20/2023 Start: 05-20-2023 End: 07-20-2023 Thyrotropin [Units/volume] in Serum or Plasma [facility] Work Phone: Comment on above: Expected: 05/20/2023 , Expires: 07/20/2023 Start: 05-01-2023 End: 07-01-2023 CBC W Auto Differential panel - Blood CBC + DIFF Lab Routine Iron deficiency anemia due to chronic blood loss Expected: 05/01/2023, Expires: 07/01/2023 [facility] Work Phone: Comment on above: Expected: 05/01/2023 , Expires: 07/01/2023 Start: 05-01-2023 End: 07-01-2023 CELIAC SCREEN WITH REFLEX CELIAC SCREEN WITH REFLEX Lab Routine Iron deficiency anemia due to chronic blood loss Expected: 05/01/2023, Expires: 07/01/2023 [facility] Work Phone: Comment on above: Expected: 05/01/2023 , Expires: 07/01/2023 Start: 05-01-2023 End: 07-01-2023 Ferritin [Mass/volume] in Serum or Plasma FERRITIN BLD Lab Routine Iron deficiency anemia due to chronic blood loss Expected: 05/01/2023, Expires: 07/01/2023 [facility] Work Phone: Comment on above: Expected: 05/01/2023 , Expires: 07/01/2023 Start: 05-01-2023 End: 07-01-2023 Iron and Iron binding capacity panel - Serum or Plasma IRON + TIBC Lab Routine Iron deficiency anemia due to chronic blood loss Expected: 05/01/2023, Expires: 07/01/2023 [facility] Work Phone: Comment on above: Expected: 05/01/2023 , Expires: 07/01/2023 Start: 02-04-2023 End: 04-06-2023 Hepatitis C virus Ab [Presence] in Serum [facility] Work Phone: Comment on above: Expected: 02/04/2023 , Expires: 04/06/2023 Start: 11-11-2022 DEPRESSION ASSESSMENT DEPRESSION ASS ESSMENT [facility] Start: 07-12-2022 Influenza vaccination INFLUENZA (#1) [facility] Start: 04-21-2022 Adult depression screening assessment DEPRESSION SCREENING [facility] Start: 12-16-2021 COVID-19 VACCINE (4 - Booster for Pfizer series) COVID-19 VACCINE (4 - Booster for Pfizer series) [facility] Start: 12-15-2021 Mammography MAMMOGRAM [facility] Start: 11-11-2021 DEPRESSION ASSESSMENT DEPRESSION ASS ESSMENT [facility] Start: 10-10-2021 COVID-19 VACCINE (4 - Booster for Pfizer series) COVID-19 VACCINE (4 - Booster for Pfizer series) [facility] Start: 2020 Pneumococcal Vaccine : 50+ (1 of 1 - PCV) Pneumococcal Vaccine: 50+ (1 of 1 - PCV) [facility] Start: 2020 SHINGRIX VACCINE (1 of 2) SHINGRIX VACCINE (1 of 2) [facility] Start: 2015 COLOGUARD (FIT-DNA) COLOGUARD (FIT-D NA) [facility] Start: 2015 Colonoscopy COLONOSCOPY [facility] Start: 2015 COLORECTAL CANCER SCREENING COLORECTAL CANCER SCREENING [facility] Start: [address] COLONOGRAPHY [facility] Start: 2015 FECAL OCCULT BLOOD FECAL OCCULT BLOO D [facility] Start: 2015 Screening for malign ant neoplasm of colon [facility] Start: 2015 SIGMOIDOSCOPY SIGMOIDOSCOPY [facility] Start: 1989 Hepatitis B Vaccine (1 of 3 - 19+ 3-dose series) Hepatitis B Vaccine (1 of 3 - 19+ 3-dose series) [facility] Start: 1988 Depression Screening Depression Scre ening [facility] Start: 1988 HEPATITIS C SCREENING HEPATITIS C SC MAY [facility] Start: 1970 HEPATITIS B (1 of 3 - 3-dose series) HEPATITIS B (1 of 3 - 3-dose series) [facility] Start: 1970 Hepatitis B Vaccine (1 of 3 - 3-dose series) Hepatitis B Vaccine (1 of 3 - 3-dose series) [facility] Bacteria identified in Urine by Culture URINE CULTURE Microbiology Routine Abnormal result on screening urine test 02/04/2023 4:45 PM EDT [facility] Work Phone: End: 12-27-2023 Gastric emptying imaging study NM GASTRIC EMPTYING SOLID Radiology Routine Chronic nausea Dyspepsia Nausea 1 Occurrences starting 11/27/2022 until 12/27/2023 [facility] Work Phone: Comment on above: 1 Occurrences starti ng 11/27/2022 until 12/27/2023 Hemoglobin.gastroint est inal.lower [Presence] in Stool by Immunoassay IMMUNOCHEMICAL FECAL OCCULT BLOOD TEST Lab Routine Black stool Ordered: 06/15/2024 [facility] Comment on above: Ordered: 06/15/2024 End: 02-01-2024 ASHLEE SCREENING ASHLEE SCREENING Radiology Routine Encounter for screening mammogram for breast cancer 1 Occurrences starting 01/02/2023 until 02/01/2024 [facility] Work Phone: Comment on above: 1 Occurrences starti ng 01/02/2023 until 02/01/2024 End: 03-05-2024 ASHLEE SCREENING ASHLEE SCREENING Radiology Routine Encounter for screening mammogram for malignant neoplasm of breast 1 Occurrences starting 02/04/2023 until 03/05/2024 [facility] Work Phone: Comment on above: 1 Occurrences starti ng 02/04/2023 until 03/05/2024 End: 05-01-2025 MG Breast Screening ASHLEE SCREENING Radiology Routine Encounter for screening mammogram for breast cancer 1 Occurrences starting 04/01/2024 until 05/01/2025 [facility] Work Phone: Comment on above: 1 Occurrences starti ng 04/01/2024 until 05/01/2025 End: 06-18-2024 Mri brain brain stem w/o contrast material MRI BRAIN WO IVCON Radiology Routine Daily headache Motion sickness, subsequent encounter 1 Occurrences starting 05/20/2023 until 06/18/2024 [facility] Work Phone: Comment on above: 1 Occurrences starti ng 05/20/2023 until 06/18/2024 Patient Education [facility] Work Phone: Patient referral [facility] Work Phone: PT PLAN OF CARE CERTIFICATION PT PLAN OF CARE CERTIFICATION Procedures Routine Acute pain of right knee Ordered: 12/07/2022 [facility] Comment on above: Ordered: 12/07/2022 End: 11-27-2023 Screening colonoscopy COLONOSCOPY SCREENING Endoscopy Routine Screening for colon cancer 1 Occurrences starting 11/27/2022 until 11/27/2023 [facility] Work Phone: Comment on above: 1 Occurrences starti ng 11/27/2022 until 11/27/2023 End: 02-23-2023 Screening mammography bi 2-view breast inc cad ASHLEE SCREENING Radiology Routine Encounter for screening mammogram for breast cancer 1 Occurrences starting 01/24/2022 until 02/23/2023 [facility] Work Phone: Comment on above: 1 Occurrences starti ng 01/24/2022 until 02/23/2023 Urinalysis complete panel - Urine URINALYSIS, WITH MICROSCOPIC Lab Routine Abnormal result on screening urine test 02/04/2023 4:26 PM EDT [facility] Work Phone: [facility] Immunizations Immunization Date Immunization Notes Care Provider [facility] 08-28-2024 influenza, seasonal, injectable Immunization [place] Work Phone: [facility] 08-28-2024 influenza virus vaccine, unspecified formulation [place] APRN.CNP Work Phone: [facility] 07-19-2023 influenza, injectabl e, quadrivalent, preservative free JORGE LUIS Vital PA-C Work Phone: [facility] 07-19-2023 influenza virus vaccine, unspecified formulation Eva Morton PA-C Work Phone: [facility] 06-29-2023 tetanus toxoid, reduced diphtheria toxoid, and acellular pertussis vaccine, adsorbed Dr. Justus Mcdonald MD Work Phone: [facility] 07-25-2022 Seasonal, trivalent, recombinant, injectable influenza vaccine, preservative free Justus Mcdonald MD Work Phone: [facility] 11-02-2021 zoster vaccine recombinant uJstus Mcdonald MD Work Phone: [facility] 08-05-2021 Seasonal, quadrivalent, recombinant, injectable influenza vaccine, preservative free Justus Mcodnald MD Work Phone: [facility] 08-05-2021 zoster vaccine recombinant Justus Mcdonald MD Work Phone: [facility] 08-19-2020 influenza, injectabl e, quadrivalent, contains preservative Justus Mcdonald MD Work Phone: [facility] 09-04-2019 influenza, injectabl e, quadrivalent, contains preservative Justus Mcdonald MD Work Phone: [facility] 05-07-2019 tetanus toxoid, reduced diphtheria toxoid, and acellular pertussis vaccine, adsorbed Justus Mcdonald MD Work Phone: [facility] 09-30-2018 influenza, injectabl e, quadrivalent, contains preservative Justus Mcdonald MD Work Phone: [facility] 08-25-2017 influenza, seasonal, injectable Justus Mcdonald MD Work Phone: [facility] 10-10-2016 influenza, injectabl e, quadrivalent, preservative free Dr. Justus Mcdonald MD Work Phone: [facility] 10-10-2016 influenza, seasonal, injectable, preservative free Justus Mcdonald MD Work Phone: [facility] 08-15-2015 influenza, seasonal, injectable Justus Mcdonald MD Work Phone: [facility] Work Phone: 08-12-2014 influenza, seasonal, injectable Justus Mcdonald MD Work Phone: [facility] 08-12-2014 tuberculin skin test ; purified protein derivative solution, intradermal Amber Lenz APRN.COIN ROLLING MACHINE OPERATOR Work Phone: [facility] 12-15-2013 influenza virus vaccine, unspecified formulation Justus Mcdonald MD Work Phone: [facility] Work Phone: 04-11-2001 hepatitis B vaccine, adult dosage [place] 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 Phone: [facility] 12-12-2000 hepatitis B vaccine, adult dosage [place] 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 Phone: [facility] 11-11-2000 hepatitis B vaccine, adult dosage [place] 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 Phone: [facility] Payers Date Payer Category Payer Private Health Insurance [employer] [id number] 2024-Present [phone] [address] [place] [address] Open Access [id number] 2024 Private Health Insurance [id number] 2023 Unknown 2020 Medicaid [facility] MEDICAID [facility] MEDICAID [id number] 2020-Present [phone] [address] [place] [address] Medicaid [id number] 2020 Medicaid [id number] 2018 Self-pay Self-pay [id number] Unknown [id number] Unknown [id number] Unknown [id number] Unknown [id number] Worker's Compensation Social History Date Type Detail Facility Start: 11-27-2022 End: 07-07-2025 Tobacco smoking status NHIS Never smoked tobacco [facility] Start: 11-29-2021 End: 07-07-2025 Alcohol intake Current non-drinker of alcohol (finding) [facility] Start: 12-12-2020 History SDOH Alcohol Frequency 2 [facility] Start: 12-12-2020 History SDOH Alcohol Std Drinks 1 [facility] Start: 07-07-2010 History SDOH Alcohol Comment 2x a year [facility] Start: 12-12-2020 History SDOH Social Connections Phone 5 [facility] Start: 12-12-2020 History SDOH Social Connections Get Together 4 [facility] Start: 12-12-2020 History SDOH Social Connections Living 3 [facility] Start: 12-12-2020 Education 14 [facility] Start: 1970 Sex Assigned At Not on file [facility] Start: 07-24-2020 End: 01-23-2022 Exposure to SARS-CoV-2 (event) Not sure [facility] Work Phone: Start: 11-27-2022 Tobacco use and exposure Smoke less tobacco non-user [facility] Start: 12-12-2020 End: 03-19-2023 History of Social function [place] [facility] Start: 12-12-2020 End: 03-19-2023 Social connection and isolation panel [facility] Do you belong to any clubs or organizations such as mormon groups, unions, fraternal or athletic groups, or school groups? No [facility] Are you now , , , , never or living with a partner? [facility] How often to you hav e a drink containing alcohol? Monthly or less [facility] How many standard dr inks containing alcohol do you have on a typical day? 1 or 2 [facility] How often do you hav e 6 or more drinks on 1 occasion? Never [facility] How hard is it for y ou to pay for the very basics like food, housing, medical care, and heating Not very hard [facility] Start: 10-12-2012 Adult Depression Scr eening Assessment 0 [facility] Work Phone: Do you feel stress - tense, restless, nervous, or anxious, or unable to sleep at night because your mind is troubled all the time - these days [OSQ] Very much [facility] (I/We) worried amaury er (my/our) food would run out before (I/we) got money to buy more. Never true [facility] Are you now , , , , never or living with a partner? [facility] How often to you hav e a drink containing alcohol? 2-3 time sa week [facility] How hard is it for y ou to pay for the very basics like food, housing, medical care, and heating Hard [facility] In the past 12 month s, was there a time when you were not able to pay the mortgage or rent on time? Yes [facility] Start: 10-09-2016 Alcohol Alcohol [facility] Start: 10-09-2016 Lives Lives [facility] Start: 10-09-2016 Tobacco Use Tobacco Use [facility] Start: 1970 Sex Assigned At Female [facility] Functional Status Date Assessment Result Facility 03-08-2015 Are you deaf, or do you have serious difficulty hearing No 03/08/2015 11:58 AM Cindy Friend RN No [facility] 03-08-2015 Are you blind, or do you have serious difficulty seeing, even when wearing glasses No 03/08/2015 11:58 AM Cindy Friend RN No [facility] 03-08-2015 Do you have serious difficulty walking or climbing stairs No 03/08/2015 11:58 AM Cindy Friend RN No [facility] 03-08-2015 Do you have difficul ty dressing or bathing No 03/08/2015 11:58 AM Cindy Friend RN No [facility] 03-08-2015 Because of a physica l, mental, or emotional condition, do you have difficulty doing errands alone such as visiting a physician's office or shopping No 03/08/2015 11:58 AM Cindy Friend RN No [facility] Mental Status Date Assessment Result Facility 03-08-2015 Because of a physica l, mental, or emotional condition, do you have serious difficulty concentrating, remembering, or making decisions No 03/08/2015 11:58 AM EDT Cindy Bates RN No [facility] Clinical Notes 07-07-2010 to 07-08-2025 Telephone Encounter - [place] APRN.CNP - 07/08/2025 2:51 PM EDTTelephone Encounter - [place] APRN.CNP - 07/08/2025 2:51 PM EDTPatient Instructions Note Date & Type Note Facility 07-08-2025 Telephone encounter Note Form atting of this note might be different from the original. Ordered for 2 x day [facility] 07-08-2025 Miscellaneous Notes Formattin g of [...] Geena Jimenes RN documented in this encounter [facility] 07-08-2025 Telephone encounter Note Form atting [...] Please review and advise, Geena Jimenes RN [facility] 07-07-2025 Discharge summary [facility] 07-07-2025 Radiology Diagnostic study note [facility] Imaging Services [address] [place] [address] Venous Duplex Imag/Limited/Uni MR#: [id number] Acct: [id number] Name: ESTUARDO VILLA Rep #: [id number] : 1970 F 54 From: Jeffrey Caruso MD PCP: Dr. Justus Mcdonald MD Status: REG E R Study:Venous Duplex Imag/Limited/Uni Date of Exam: 07/07/25 Exam# [id number] Ordering Dr: Fausto Johnston DO PROCEDURE: LEFT [...] in the left lower extremity. Reading Location: [facility] CC: Dr. Fausto Johnston DO; Dr. Justus Mcdonald MD ~ Pipe And Tank Fabricator: Signed [facility] 07-07-2025 Instructions Justus Mcdonald MD - 07/07/2025 [...] the ER staff. documented in this encounter [facility] 07-07-2025 Note HNO ID: [id number] Author: JUSTUS MCDONALD MD Service: ? Author [...] associated with childbirth 2006 Hiatal hernia 04/13/2003 [facility] History of 1987,1989,1993 Iron deficiency anemia, unspecified Mental disorder Migraine, unspecified, without mention of intractable migraine without mention of status migrainosus Other pulmonary embolism and infarction 1987 Pulmonary embolism AND factor 5 Leiden PAST SURGICAL HISTORY Procedure Laterality Date DELIVERY ONLY 1987,1989,1993 , low transverse EGD 11/24/2020 ESOPHAGOGASTRODUODENOSCOPY TRANSORAL DIAGNOSTIC 04/13/2003 EGD [facility]. Lundy ESOPHAGOGASTRODUODENOSCOPY TRANSORAL DIAGNOSTIC 12/08/2018 EGD HYSTERECTOMY HX 2005 left ovaries INCISE FINGER TENDON SHEATH Left 01/11/2021 Left middle trigger finger release GUERIN W/O FACETEC FORAMOT/DSC 11/12 VRT SGM CRV 2006 Laminectomy, cervical and titianium placed NECK SURGERY HX SKIN BIOPSY HX VAGINAL HYSTERECTOMY FAMILY HISTORY Problem Relation Age of Onset Diabetes Mother Headache Mother Hypertension Mother Heart Father 3 MN's, age 52 Cancer Maternal Grandmother Uterine Blood [...] lower extremity (M79.605) 2. Factor V Leiden ([facility]) (D68.51) 3. History of pulmonary embolism (Z86.711) - Acute left lower extremity pain with localized (more content not included)... [facility] 07-07-2025 History of Present illness Narrative The [...] EGD 11/24/2020 ESOPHAGOGASTRODUODENOSCOPY TRANSORAL DIAGNOSTIC 04/13/2003 EGD [facility] Dr. Lundy ESOPHAGOGASTRODUODENOSCOPY TRANSORAL DIAGNOSTIC 12/08/2018 EGD HYSTERECTOMY HX 2005 left ovaries INCISE FINGER TENDON SHEATH Left 01/11/2021 Left middle trigger finger release GUERIN W/O FACETEC FORAMOT/DSC 1/2 VRT SGM CRV 2006 Laminectomy, cervical and titianium placed NECK SURGERY HX SKIN BIOPSY HX VAGINAL HYSTERECTOMY FAMILY HISTORY Problem Relation Age of Onset Diabetes Mother Headache Mother Hypertension Mother Heart Father 3 MN's, age 52 Cancer Maternal Grandmother Uterine Blood [...] to patient) Justus Mcdonald MD Recording using Cell[employer] software for draft documentation of the visit was discussed with the patient/authorized mortician supplies sales representative; all questions welcomed and answered. Patient/authorized mortician supplies sales representative agreed to proceed [1] Social History Tobacco Use Smoking status: Never Smokeless tobacco: Never Vaping Use Vaping status: Never Used Substance Use Topics Alcohol use: No Drug use: No documented in this encounter [facility] 07-07-2025 Discharge summary Note Date/Time July 07, 2025 6:05pm [facility] Medical Records Department [address] [place] [address] Emergency Department Summary 07/07/25 MR#: [id number] Acct: [id number] Name: ESTUARDO VILLA Rep #:[id number] : 1970 54 From: Fausto Brar PCP: [...] ago. No chestpains no shortness of breath. 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 Ultrasound discussion with emergency spill response technician negative. Patient reassured of findings. She is used Tylenol as needed. She will follow-up with her doctor. Re-evaluation: stable Disposition discussed with patient/family/significant other: Patient Case discussed with consulting clinician: N/A This note was generated with staila technologies dictation software. It may contain incorrectwords, spelling, and punctuation that were not noted in checking the note beforesigning. Radiography Diagnostic Testing: Clinical Impression(s) from Imaging Studies Venous Duplex 07/07/25 17:11 IMPRESSION: No evidence for DVT in the left lower extremity. Reading Location: [facility] Discharge Plan Triage Chief Complaint: Lower Extremity [...] and follow-up with your doctor. Print Language: Cameroonian Disposition Disposition: Home, Self Care What to do if you have Problems For any increased pain, shortness of breath, bleeding, nausea or vomiting, chestpain, or any unexpected problems, contact your Primary Care Provider. Call Doctors Registry ([phone]) or report to the closest Emergency Room. Call 911 if necessary. 07/07/251804 <Electronically signed by Fausto Brar> Cosigner Signature (if applicable): CC: Dr. Justus Mcdonald MD ~ Signed [facility] Work Phone: 1(911) 441-348408-26-2025 Telephone encounter Note* Telephone Encounter - Agnieszka Kingsley MA - 07/06/2025 4:39 PM EDT Patient read mychart result note Agnieszka Kingsley MA July 06, 2025 4:39 PM [facility]08-26-2025 Telephone encounter Note* Telephone Encounter - Agnieszka Kingsley MA - 07/06/2025 4:39 PM EDT ----- Message from Arlet Grove sent at 07/06/2025 2:17 PM EDT ----- Please see food allergy list. All are negative. ----- Message ----- From: Lab, Background User Sent: 07/06/2025 1:39 PM EDT To: Arlet Grove APRN.COIN ROLLING MACHINE OPERATOR [facility]08-26-2025 Miscellaneous Notes* Telephone Encounter - Agnieszka [...] 07/06/2025 1:39 PM EDT To: Arlet Grove APRN.COIN ROLLING MACHINE OPERATOR * Result Encounter Note - Arlet Grove APRN.CNP - 07/06/2025 2:17 PM EDT Please see food allergy list. All are negative. documented in this encounterOhiohealth Shelby Hospital08-26-2025 Progress note* Result Encounter Note - Arlet Grove APRN.CNP - 07/06/2025 2:17 PM EDT Please see food allergy list. All are negative. [facility]07-28-2025 Telephone encounter Note* Telephone Encounter - Ale Kennedy - 06/07/2025 12:09 PM EDT Patient is out of medication. Please send in belén. [facility]07-28-2025 Miscellaneous Notes* Telephone Encounter - Ale [...] 07, 2025 12:07 PM documented in this encounterOhiohealth Shelby Hospital07-28-2025 Telephone encounter Note * Telephone Encounter [...] Ale Magallon June 07, 2025 12:07 PM [facility]07-01-2025 Instructions* Patient Instructions* Arlet Grove APRN.COIN ROLLING MACHINE OPERATOR - 05/11/2025 10:05 AM EDT - Refill [...] note confirming your fitness for employment at [employer] has been prepared--please pick it up or submit it to your employer as needed. documented in this encounterOhiohealth Shelby Hospital07-01-2025 NoteHNO ID: [id number] Author: ARLET GROVE APRN.CNP Service: ? Author [...] General (Family Medicine) Amber Lenz APRN.CNP as Diabetes Manager (Family Medicine) Arlet Grove APRN.CNP as Diabetes Manager (Family Medicine) Concerns today: Anxiety HPI New job Estuardo Villa is a 54-year-old female with a history of anxiety, hyperlipidemia, migraines, and GERD, presenting for a work physical and evaluation of anxiety. Work Physical: - New job at [employer]. - Recent weight loss attributed to dental [...] Comment: Added automatically from request for surgery [id number] Globus Sensation - 10/29/2018 Comment: Added automatically from request for surgery [id number] Epigastric Pain - 10/29/2018 Comment: Added automatically from request for surgery [id number] Gastroesophageal Reflux Disease - 10/29/2018 Comment: Added automatically from request for surgery [id number] Sprain and Strain of Unspecified Site of Elbow and Forearm - 06/15/2014 Factor V Leiden (Hcc) Comment: Saw Dr. Cobb. Advised against skilled nursing anticoagulation or asa. No hormones. Needs post [...] EGD 11/24/2020 ESOPHAGOGASTRODUODENOSCOPY TRANSORAL DIAGNOSTIC 04/13/2003 EGD [facility] Dr. Lundy ESOPHAGOGASTRODUODENOSCOPY TRANSORAL DIAGNOSTIC 12/08/2018 EGD HYSTERECT (more content not included)...[facility]07-01-2025 History of Present illness Narrative* Arlet Grove APRN.COIN ROLLING MACHINE OPERATOR - 05/11/2025 9:38 AM EDT Chief Reason [...] General (Family Medicine) Amber Lenz APRN.MAN as Diabetes Manager (Family Medicine) Arlet Grove APRN.MAN as Diabetes Manager (Family Medicine) Concerns today: Anxiety HPI New job Estuardo Villa is a 54-year-old female with a history of anxiety, hyperlipidemia, migraines, and GERD, presenting for a work physical and evaluation of anxiety. Work Physical: - New job at [employer]. - Recent weight loss attributed to dental [...] Comment: Added automatically from request for surgery [id number] Globus Sensation - 10/29/2018 Comment: Added automatically from request for surgery [id number] Epigastric Pain - 10/29/2018 Comment: Added automatically from request for surgery [id number] Gastroesophageal Reflux Disease - 10/29/2018 Comment: Added automatically from request for surgery [id number] Sprain and Strain of Unspecified Site of Elbow and Forearm - 06/15/2014 Factor V Leiden (Hcc) Comment: Saw Dr. Cobb. Advised against skilled nursing anticoagulation or asa. No hormones. Needs post [...] EGD 11/24/2020 ESOPHAGOGASTRODUODENOSCOPY TRANSORAL DIAGNOSTIC 04/13/2003 EGD [facility] Dr. Lundy ESOPHAGOGASTRODUODENOSCOPY TRANSORAL DIAGNOSTIC 12/08/2018 [...] - Discussed cost concerns; advised use of [employer] for affordability. 4. Gastroesophageal reflux disease without [...] Follow Up Plans: June documented in this encounterOhio[facility] Hospital05-19-2025 Discharge summary [facility] Medical Records Department [address] [place] [id number] Emergency Department Summary 03/29/25 MR#: [id number] Acct: [id number] Name: ESTUARDO VILLA Rep #:[id number] : 1970 54 From: Mango Leone MD PCP: Dr. 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 Print Language: Cameroonian Disposition Disposition: Home, Self Care What to do if you have Problems For any increased pain, shortness of breath, bleeding, nausea or vomiting, chestpain, or any unexpected problems, contact your Primary Care Provider. Call Doctors Registry ([phone]) or report tothe closest Emergency Room. Call 911 if necessary. 03/29/25 3577 Cosigner Signature (if applicable): CC: Dr. Justus Mcdonald MD ~ Signed [facility]05-19-2025 Radiology Diagnostic study note [facility] Imaging Services [address] [place], [place] [address] Abdomen/Pelvis W IV Cont ONLY MR#: [id number] Acct: [id number] Name: ESTUARDO VILLA Rep #: [id number] : 1970 F 54 From: Mary Birch MD PCP: Dr. Justus Mcdonald MD Status: REG E R Study:Abdomen/Pelvis W IV Cont ONLY Date of E xam: 03/29/25 Exam# [id number] Ordering Dr: Concha Leone MD PROCEDURE: ABDOMEN/PELVIS [...] risk factors for hepatic malignancy. Reading Location: [id number] CC: Dr. Mango Leone MD; Dr. 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 Print Language: Cameroonian Disposition Disposition: Home, Self Care What to do if you have Problems For any increased pain, shortness of breath, bleeding, nausea or vomiting, chestpain, or any unexpected problems, contact your Primary Care Provider. Call Doctors Registry ([phone]) or report to the closest Emergency Room. Call 911 if necessary. 03/29/25 2265 <Electronically signed by Mango Leone MD> Cosigner Signature (if applicable): CC: Dr. Justus Mcdonald MD ~ Signed [facility] Work Phone: 1(879) 506-214704-30-2025 Telephone encounter Note* Telephone Encounter - Jg Box LPN - 03/10/2025 1:04 PM EDT Faxed as requested. [facility]04-30-2025 Miscellaneous Notes* Telephone Encounter - Jg Box LPN - 03/10/2025 1:04 PM EDT Faxed as requested. * Telephone Encounter - Justus Mcdonald MD - 03/10/2025 12:29 PM EDT done * Telephone Encounter - Jg Box LPN - 03/10/2025 10:27 AM EDT Type of form: reasonable accommodation request Form received via walk in When form is completed, Fax form to [phone] Form has been forwarded to Physician Desk: Dr. Mcdonald Patient told PSS her letter didn't work and now she needs form completed. Jg Box LPN documented in this encounterOhiohealth [facility] Hospital04-30-2025 Telephone encounter Note * Telephone Encounter - Justus Mcdonald MD - 03/10/2025 12:29 PM EDT done [facility]04-30-2025 Telephone encounter Note* Telephone Encounter - Jg Box LPN - 03/10/2025 10:27 AM EDT Type of form: reasonable accommodation request Form received via walk in When form is completed, Fax form to [phone] Form has been forwarded to Physician Desk: Dr. Mcdonald Patient told PSS her letter didn't work and now she needs form completed. Jg Box LPN [facility]04-29-2025 Telephone encounter Note* Telephone Encounter - Kelly Guidry MA - 03/09/2025 2:41 PM EDT Patient informed. 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 Kelly Guidry MA [facility]04-29-2025 Miscellaneous Notes* Telephone Encounter - Kelly Guidry MA - 03/09/2025 2:41 PM EDT Patient informed. 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 Kelly Guidry MA * Telephone Encounter - [...] advise, Geena Jimenes RN documented in this encounterOhiohealth Shelby Hospital04-29-2025 Telephone encounter Note * Telephone Encounter - Justus Mcdonald MD - 03/09/2025 12:43 PM EDT printed [facility]04-29-2025 Telephone encounter Note* Telephone Encounter - [...] Please review and advise, Geena Jimenes RN [facility]04-22-2025 Telephone encounter Note* Telephone Encounter - [...] Espinosa LPN March 02, 2025 9:48 AM [facility]04-22-2025 Miscellaneous Notes* Telephone Encounter - Linda [...] review. Isabella Carrera LPN documented in this encounterOhiohealth Shelby Hospital04-22-2025 Telephone encounter Note * Telephone Encounter - Isabella Carrera LPN - 03/02/2025 9:09 AM EDT Pt calls to request a refill of topiramate 100 mg 1.5 tabs daily. When ordering rx a window pops up stating it is a duplicate order or that it is too soon to order. Please review. Isabella Carrera LPN [facility]04-22-2025 NotePatient Outreach (FAMPWS) ESTUARDO VILLA ([id number]) 1970 F Date Time Provider Department 03/02/25 [...] for screening mammogram for breast cancer [Z12.31] Order(s):[facility] SCREENING W NARENDRA [[id number]] Order #: [id number] FUTURE Prescriptions as of 04/02/2025 - topiramate [...] *08/09/2023 Encounter Status:Closed by ASHA PRODUSER on 04/02/25[facility] 01-07-2025 Note* Addendum Note - Arlet Grove APRN.CNP - 01/07/2025 11:19 AM ESTAddended by: ARLET GROVE on: 01/07/2025 11:19 AM Modules accepted: Orders [facility]02-27-2025 Miscellaneous Notes* Addendum Note - Arlet Grove APRN.CNP - 01/07/2025 11:19 AM ESTAddended by: ARLET GROVE on: 01/07/2025 11:19 AM Modules accepted: Orders documented in this encounterOhiohealth Shelby Hospital02-27-2025 Instructions* Patient Instructions* Arlet Grove APRN.CNP - 01/07/2025 11:14 AM EST 1) Doxycycline 100 mg 2 x day for 10 days 2) Medrol taper 3) Follow up in 6 months documented in this encounterOhiohealth Shelby Hospital02-27-2025 NoteHNO ID: [id number] Author: ARLET GROVE APRN.CNP Service: ? Author [...] EGD 11/24/2020 ESOPHAGOGASTRODUODENOSCOPY TRANSORAL DIAGNOSTIC 04/13/2003 EGD [facility] Dr. Lundy ESOPHAGOGASTRODUODENOSCOPY TRANSORAL DIAGNOSTIC 12/08/2018 [...] Headache Mother Hypertension Mother Heart Father 3 MN's, age 52 Cancer Maternal Grandmother Uterine Blood [...] as needed for worsening/no improvement. Arlet Grove APRN.[facility]02-27-2025 History of Present illness Narrative* Arlet Grove APRN.[facility] - 01/07/2025 11:02 AM EST This is a 54 year old female who presents today with: Patient presents with: Cough: Follow up from [facility] HISTORY OF PRESENT ILLNESS: Estuardo Villa [...] associated with childbirth 2006 Hiatal hernia 04/13/2003 [facility] History of 1987,1989,1993 Iron deficiency anemia, unspecified Mental disorder Migraine, unspecified, without mention of intractable migraine without mention of status migrainosus Other pulmonary embolism and infarction 1987 Pulmonary embolism & factor 5 Leiden PAST SURGICAL HISTORY Procedure Laterality Date DELIVERY ONLY 1987,1989,1993 , low transverse EGD 11/24/2020 ESOPHAGOGASTRODUODENOSCOPY TRANSORAL DIAGNOSTIC 04/13/2003 EGD [facility] Dr. Lundy ESOPHAGOGASTRODUODENOSCOPY TRANSORAL DIAGNOSTIC 12/08/2018 [...] Headache Mother Hypertension Mother Heart Father 3 MN's, age 52 Cancer Maternal Grandmother Uterine Blood [...] improvement. Arlet Grove APRN.MAN documented in this encounterOhiohealth [facility] Hospital02-24-2025 History of Present illness Narrative* Jimmy [...] PATIENT PRESENTS WITH AN IMPLANTABLE OR ATTACHED BOTTOM SANDER: No RADIOLOGY DEPARTMENT: General X-ray: Exam(s) Completed: Chest X-Ray PERIPHERAL IV DATA: Not applicable SIGNED BY: RT Dulce Maria(Juan Miguel) January 04, 2025 10:43 AM documented in this encounterOhiohealth Shelby Hospital02-24-2025 NoteHNO ID: [id number] Author: JIMMY APARICIO RT(R) Service: ? Author Type: Patient Support Representative Type: Progress Notes Filed: 01/04/2025 10:49 Note [...] PATIENT PRESENTS WITH AN IMPLANTABLE OR ATTACHED BOTTOM SANDER: No RADIOLOGY DEPARTMENT: General X-ray: Exam(s) Completed: Chest X-Ray PERIPHERAL IV DATA: Not applicable SIGNED BY: RT Dulce Maria(Juan Miguel) January 04, 2025 10:43 [facility]02-24-2025 NoteHNO ID: [id number] Author: NELSON MI MD Service: ? Author [...] associated with childbirth 2006 Hiatal hernia 04/13/2003 [facility] History of 1987,1989,1993 Iron deficiency anemia, unspecified [...] production, or late onset fever. Nelson Mi, [facility]02-24-2025 History of Present illness Narrative* Nelson [...] associated with childbirth 2006 Hiatal hernia 04/13/2003 [facility] History of 1987,1989,1993 Iron deficiency anemia, unspecified [...] fever. Nelson Mi MD documented in this encounterOhiohealth Shelby Hospital11-26-2024 History of Present illness Narrative* Jimmy [...] PATIENT PRESENTS WITH AN IMPLANTABLE OR ATTACHED BOTTOM SANDER: No RADIOLOGY DEPARTMENT: General X-ray: Exam(s) Completed: Chest X-Ray PERIPHERAL IV DATA: Not applicable SIGNED BY: RT Dulce Maria(Juan Miguel) October 06, 2024 12:25 PM documented in this encounterOhiohealth Shelby Hospital11-26-2024 NoteHNO ID: [id number] Author: JIMMY APARICIO RT(Juan Miguel) Service: ? Author Type: Patient Support Representative Type: Progress Notes Filed: 10/06/2024 12:32 Note [...] PATIENT PRESENTS WITH AN IMPLANTABLE OR ATTACHED BOTTOM SANDER: No RADIOLOGY DEPARTMENT: General X-ray: Exam(s) Completed: Chest X-Ray PERIPHERAL IV DATA: Not applicable SIGNED BY: Jimmy Aparicio RT(R) October 06, 2024 12:25 [facility]11-26-2024 NoteHNO ID: [id number] Author: LISA CORTES PA Service: ? Author Type: Physician Inspector And Adjuster [employer] Head Type: Progress Notes Filed: 10/06/2024 12:40 Note Text: This note was created using Montalvo Systemsriter. Subjective Estuardo Villa is a 53 year [...] although symptoms resolved. She has taken Tylenol djkx-ycd-lgnuhch, without much improvement in symptoms. PAST MEDICAL [...] EGD 11/24/2020 ESOPHAGOGASTRODUODENOSCOPY TRANSORAL DIAGNOSTIC 04/13/2003 EGD [facility] Dr. Lundy ESOPHAGOGASTRODUODENOSCOPY TRANSORAL DIAGNOSTIC 12/08/2018 [...] Headache Mother Hypertension Mother Heart Father 3 MN's, age 52 Cancer Maternal Grandmother Uterine Blood [...] the patient's satisfaction. Pt (more content not included)...[facility]11-26-2024 History of Present illness Narrative* Lisa Cortes PA - 10/06/2024 11:54 AM EST This note was created using Montalvo Systemsriter. Subjective Estuardo Villa is a 53 year [...] although symptoms resolved. She has taken Tylenol nudi-wru-wwrkpww, without much improvement in symptoms. PAST MEDICAL HISTORY Diagnosis Date Anxiety state, unspecified Blood dyscrasia Carpal tunnel syndrome Factor V Leiden (HCC) Galactorrhea not associated with childbirth 2007 Hiatal hernia 04/13/2003 [facility] History of 1987,1989,1993 Iron deficiency anemia, unspecified Mental disorder Migraine, unspecified, without mention of intractable migraine without mention of status migrainosus Other pulmonary embolism and infarction 1987 Pulmonary embolism & factor 5 Leiden PAST SURGICAL HISTORY Procedure Laterality Date DELIVERY ONLY 1987,1989,1993 , low transverse EGD 11/24/2020 ESOPHAGOGASTRODUODENOSCOPY TRANSORAL DIAGNOSTIC 04/13/2003 EGD [facility] Dr. Lundy ESOPHAGOGASTRODUODENOSCOPY TRANSORAL DIAGNOSTIC 12/08/2018 [...] Headache Mother Hypertension Mother Heart Father 3 MN's, age 52 Cancer Maternal Grandmother Uterine Blood [...] ER evaluation. DELORIS Alonso documented in this encounterOhiohealth Shelby Hospital11-08-2024 NoteHNO ID: [id number] Author: AMBER LENZ APRN.COIN ROLLING MACHINE OPERATOR Service: ? Author Type: Nurse Practitioner Type: Progress Notes Filed: 09/18/2024 13:23 Note Text: Logged in for virtual visit at 1:11 and patient logged out prior without being seen. Links resent via text and email for patient to log back in. Pt did not re-enter visit. Amber Lenz APRN.CNP The patient left without being seen.[facility]11-[facility] History of Present illness Narrative* Amber Lenz APRN.CNP - 09/18/2024 1:20 PM EST Logged in for virtual visit at 1:11 and patient logged out prior without being seen. Links resent via text and email for patient to log back in. Pt did not re- enter visit. Amber Lenz APRN.CNP The patient left without being seen. documented in this encounterOhiohealth Shelby Hospital11-04-2024 NoteHNO ID: [id number] Author: ROLLY KEEN APRN.CNP Service: ? Author Type: Nurse Practitioner Type: Progress Notes Filed: 09/14/2024 10:21 Note Text: This note was created using PLDT. Subjective Estuardo Villa is a 53 year [...] any new or worsening concerns. Rolly Keen APRN.[facility]NA[facility] History of Present illness Narrative* Rolly Keen APRN.MAN - 09/14/2024 10:13 AM EST This note was created using SoZo Globalter. Subjective Estuardo Villa is a 53 year [...] concerns. Rolly Keen APRN.CNP documented in this encounterOhiohealth Shelby Hospital10-18-2024 Telephone encounter Note * Telephone Encounter [...] TIMUR Medina August 28, 2024 8:17 AM [facility]10-18-2024 Miscellaneous Notes* Telephone Encounter - Lorelei [...] 28, 2024 8:17 AM documented in this encounterOhiohealth Shelby Hospital09-18-2024 Telephone encounter Note * Telephone Encounter [...] Ale Magallon July 29, 2024 10:45 AM [facility]09-18-2024 Miscellaneous Notes* Telephone Encounter - Ale Kennedy - 07/29/2024 [...] 29, 2024 10:45 AM documented in this encounterOhiohealth Shelby Hospital08-20-2024 Telephone encounter Note * Telephone Encounter - Amber Lenz APRN.CNP - 06/30/2024 12:57 PM EDT Script sent. [facility]08-20-2024 Miscellaneous Notes* Telephone Encounter - Amber [...] okay. Amber Lenz APRN.MAN documented in this encounterOhiohealth Shelby Hospital08-20-2024 Telephone encounter Note * Telephone Encounter - Ruben Ospina LPN - 06/30/2024 12:04 PM EDT Pt notified of results/provider instructions. She verbalized understanding. She is willing to try Zetia, please send rx to pharmacy. Schedulers please assist pt with scheduling appt with lipid clinic. Ruben Ospina LPN [facility]08-20-2024 Telephone encounter Note* Telephone Encounter - [...] D levels were okay. Amber Lenz APRN.MAN [facility]08-19-2024 Instructions* Patient Instructions* Amber Lenz APRN.CNP - 06/29/2024 10:48 AM EDT Try the hydroxyzine. Get the repeat labwork. Recheck in 6 weeks. documented in this encounterOhiohealth Shelby Hospital08-19-2024 History of Present illness Narrative* Amber [...] tunnel syndrome No date: Factor V Leiden ([facility]) 2007: Galactorrhea not associated with childbirth 04/13/2003: [...] EGD 04/13/2003: ESOPHAGOGASTRODUODENOSCOPY TRANSORAL DIAGNOSTIC Comment: EGD [facility] Dr. Lundy 12/08/2018: ESOPHAGOGASTRODUODENOSCOPY TRANSORAL DIAGNOSTIC [...] Headache Mother Hypertension Mother Heart Father 3 MN's, age 52 Cancer Maternal Grandmother Uterine Blood [...] as needed for worsening/no improvement. Amber Lenz APRN.COIN ROLLING MACHINE OPERATOR documented in this encounterOhiohealth Shelby Hospital08-07-2024 Telephone encounter Note * Telephone Encounter - Sharon Tobias LPN - 06/17/2024 8:35 AM EDT Spoke with pt and information listed below given. Pt verbalizes understanding. Sharon Tobias LPN [facility]08-07-2024 Miscellaneous Notes* Telephone Encounter - Sharon [...] labs in one week documented in this encounterOhiohealth Shelby Hospital08-06-2024 Telephone encounter Note * Telephone Encounter - Justus Mcdonald MD - 06/16/2024 5:41 PM EDT Labs are overall ok. Looks a little dry. Push fluids. Pancreatic enzymes are ok. Calcium is slightly up but may just be lab error. Recheck labs in one week [facility]08-05-[facility] History of Present illness Narrative* Justus [...] tablet by mouth daily at bedtime. fremanezumab-vfrm (Screaming SportsOVY AUTOINJECTOR) 225 mg/1.5 mL auto-injector Inject 1.5 [...] EGD 04/13/2003: ESOPHAGOGASTRODUODENOSCOPY TRANSORAL DIAGNOSTIC Comment: EGD [facility] Dr. Lundy 12/08/2018: ESOPHAGOGASTRODUODENOSCOPY TRANSORAL DIAGNOSTIC [...] Headache Mother Hypertension Mother Heart Father 3 MN's, age 52 Cancer Maternal Grandmother Uterine Blood [...] that visit as well. documented in this encounterOhiohealth Shelby Hospital08-05-2024 Telephone encounter Note * Telephone Encounter [...] partial hyster. Protocols used: Stools - Unusual Ciuqt-ATHMW-NV, Rectal Oetyvzbu-ODBOV-ZA [facility]08-05-[facility] Miscellaneous Notes* Telephone Encounter - Julita [...] partial hyster. Protocols used: Stools - Unusual Xwjyu-CIJVV-DI, Rectal Yeqzevpp-PXMDH-MQ * Telephone Encounter - Damaris Siddiqui RN - 06/15/2024 10:39 AM EDT Attempted to call the pt back x 3 with no answer. LM to return the call to speak with an RN about her call. Attempted her work number which did not go through and LM on pt's Roger's phone to have the pt call us back. documented in this encounterOhiohealth Shelby Hospital08-05-2024 Telephone encounter Note * Telephone Encounter - Damaris Siddiqui RN - 06/15/2024 10:39 AM EDT Attempted to call the pt back x 3 with no answer. LM to return the call to speak with an RN about her call. Attempted her work number which did not go through and LM on pt's Roger's phone to have the pt call us back. [facility]04-17-[facility] Instructions* Patient Instructions* Courtney Anderson PA-C - 02/26/2024 11:40 AM EDT Will try Ajovy once a month for prevention, continue with topiramate 150mg daily Nurtec as needed for break through headaches Increase water intake to 60 ounces a day Take Phenergan 25 mg as needed for nausea Follow up in three months documented in this encounterOhiohealth Shelby Hospital04-17-2024 History of Present illness Narrative* Courtney Anderson PA-C - 02/26/2024 11:20 AM EDT Images from the original note were not included. [facility] Follow up CC: Headache [...] EGD 11/24/2020 ESOPHAGOGASTRODUODENOSCOPY TRANSORAL DIAGNOSTIC 04/13/2003 EGD [facility] Dr. Lundy ESOPHAGOGASTRODUODENOSCOPY TRANSORAL DIAGNOSTIC 12/08/2018 [...] which included preparing to see the patient, ivft-tg-mfcp patient care, completing clinical documentation, obtaining and/or reviewing separately obtained history, performing a medically appropriate examination, counseling and educating the pat ient/family/caregiver, and ordering medications, tests, or procedures. Courtney Anderson PA-C General Neurology [address] [place] [address]. [id number] Appointment: [phone] documented in this encounterOhiohealth Shelby Hospital03-25-2024 Miscellaneous Notes* Telephone Encounter - Linda Espinosa LPN - 02/03/2024 3:08 PM EDT Fax received from [employer] stating that Nurtec was approved for 8 tablets instead of 16 due to planlimits. TC to pt who voiced understanding and auth scanned to chart. Linda Espinosa LPN * Telephone Encounter - Diamond Tobias LPN - 02/03/2024 8:40 AM EDT Prior Authorization started Nurtec qty 16 tablets every other day Duncan [id number], cover my meds. Diamond Tobias LPN * [...] time. Please advise pt. documented in this encounterOhiohealth Shelby Hospital02-29-2024 History of Present illness Narrative* Nina Vieira PA-C - 01/09/2024 7:54 AM EST This note was created using Montalvo Systemsriter. Subjective Estuardo Villa is a 53 year [...] associated with childbirth 2006 Hiatal hernia 04/13/2003 [facility] History of 1987,1989,1993 Iron deficiency anemia, unspecified [...] EGD 11/24/2020 ESOPHAGOGASTRODUODENOSCOPY TRANSORAL DIAGNOSTIC 04/13/2003 EGD [facility] Dr. Lundy ESOPHAGOGASTRODUODENOSCOPY TRANSORAL DIAGNOSTIC 12/08/2018 EGD HYSTERECTOMY HX 2005 left ovaries INCISE FINGER TENDON SHEATH Left 01/11/2021 Left middle trigger finger release GUERIN W/O FACETEC FORAMOT/DSC 1/2 VRT SGM CRV 2006 Laminectomy, cervical and titianium placed NECK SURGERY HX SKIN BIOPSY HX VAGINAL HYSTERECTOMY FAMILY HISTORY Problem Relation Age of Onset Diabetes Mother Headache Mother Hypertension Mother Heart Father 3 MN's, age 52 Cancer Maternal Grandmother Uterine Blood [...] worsen. Nina Vieira PA-C documented in this encounterOhiohealth Shelby Hospital11-21-2023 Miscellaneous Notes* Telephone Encounter - Sultana [...] her request. Thank you. documented in this encounterOhiohealth Shelby Hospital11-14-2023 Instructions* Patient Instructions* Courtney Anderson PA-C - 09/24/2023 3:46 PM EST MRI of the brain 2. Continue 150mg topiramate daily (50mg in the morning, 100mg in the evening before bed) 3. Nurtec 75mg with onset of headache 4. Follow up in 5 months B12 Replacement You may start vitamin B12 supplements [available umhi-wrd-hhyggce] orally, according to the following regimen: 1 mg (or 1000 micrograms) daily. documented in this encounterOhiohealth Shelby Hospital11-14-2023 History of Present illness Narrative* Courtney Anderson PA-C - 09/24/2023 3:41 PM EST Images from the original note were not included. [facility] Follow up CC: Headache [...] EGD 11/24/2020 ESOPHAGOGASTRODUODENOSCOPY TRANSORAL DIAGNOSTIC 04/13/2003 EGD [facility] Dr. Lundy ESOPHAGOGASTRODUODENOSCOPY TRANSORAL DIAGNOSTIC 12/08/2018 [...] which included preparing to see the patient, phbi-kg-oqpk patient care, completing clinical documentation, obtaining and/or reviewing separately obtained history, performing a medically appropriate examination, counseling and educating the pat ient/family/caregiver, and ordering medications, tests, or procedures. Courtney Anderson PA-C General Neurology [facility] [place]. [address] Appointment: [phone] * Linda Espinosa LPN - 09/24/2023 3:32 PM EST There is no data to display for this encounter documented in this encounterOhiohealth Shelby Hospital11-10-2023 Miscellaneous Notes* Telephone Encounter - Jesi Harris - 09/20/2023 7:28 AM EST 09-19 patient rescheduled EGD but declined Colonoscopy wants to do Stool Kit test Cologuard or IFOBT. Please call [phone] patient,once order has been placed and where to pick it up. Jesi Harris * Telephone Encounter - Julita Lee PA-C - 03/19/2023 11:11 AM EDT Rx sent * Telephone Encounter - Erika Daly - 03/19/2023 10:49 AM EDT Patient asking for prep Golytely be called into [facility] in [place] Erika Daly Photostatic Copy Maker * Telephone Encounter - Erika Daly - 03/19/2023 10:48 AM EDT 04/18/2023 colon/egd asc documented in this encounterOhiohealth Shelby Hospital10-20-2023 Miscellaneous Notes* Telephone Encounter - Jg Box LPN - 08/30/2023 3:11 PM EDT Letter faxed as requested. * Telephone Encounter - Justus Mcdonald MD - 08/30/2023 2:15 PM EDT Letter printed. * Telephone Encounter - Geena Jimenes RN - 08/30/2023 1:29 PM EDT Alessandra from [facility] calls and states that patient is set to have 3 teeth extractions and a root canal. Patient is going to need a medical clearance for this due to patient having Factor V Leiden. Alessandra asking if provider can provide this? Fax number is [phone]. If provider has any questions please give office a call. Please review and advise, Geena Jimenes RN documented in this encounterOhiohealth Shelby Hospital10-15-2023 Miscellaneous Notes* Telephone Encounter - Bandar-Allison Delacruz APRN.CNP - 08/25/2023 12:05 PM EDT Letter created for patient's employer stating she has a sinus infection. She can access this through Borqs. Allison Mar APRN.MAN documented in this encounterOhiohealth Shelby Hospital10-14-2023 History of Present illness Narrative* Lucy [...] associated with childbirth 2007 Hiatal hernia 04/13/2003 [facility] History of 1987,1989,1993 Iron deficiency anemia, unspecified Mental disorder Migraine, unspecified, without mention of intractable migraine without mention of status migrainosus Other pulmonary embolism and infarction 1987 Pulmonary embolism & factor 5 Leiden PAST SURGICAL HISTORY Procedure Laterality Date DELIVERY ONLY 1987,1989,1993 , low transverse EGD 11/24/2020 ESOPHAGOGASTRODUODENOSCOPY TRANSORAL DIAGNOSTIC 04/13/2003 EGD [facility] Dr. Lundy ESOPHAGOGASTRODUODENOSCOPY TRANSORAL DIAGNOSTIC 12/08/2018 [...] Headache Mother Hypertension Mother Heart Father 3 MN's, age 52 Cancer Maternal Grandmother Uterine Blood [...] plan. Lucy Ross APRN.CNP documented in this encounterOhiohealth Shelby Hospital10-05-2023 Miscellaneous Notes* Telephone Encounter - Sharon [...] as discussed during visit. documented in this encounterOhiohealth Shelby Hospital09-29-2023 Instructions* Patient Instructions* Luis Vital PA-C - 08/09/2023 1:50 PM EDT Add additional Topamax 50mg daily in the morning. Monitor and let me know if any changes. documented in this encounterOhiohealth Shelby Hospital09-29-2023 History of Present illness Narrative* Luis [...] leiden (hcc) Hx PE Dizziness r/t anemia Dialysis Clinical Manager: Dr. Pearl Segundo 02/07/2023 Iron sucrose 200mg [...] Lymph 1.00 - 4.00 k/uL 1.70 2.30 Collin% % 10.9 7.5 Abs Collin <0.87 k/uL 0.62 0.37 Eosin% % 1.4 [...] Headache Mother Hypertension Mother Heart Father 3 MN's, age 52 Cancer Maternal Grandmother Uterine Blood [...] EGD 11/24/2020 ESOPHAGOGASTRODUODENOSCOPY TRANSORAL DIAGNOSTIC 04/13/2003 EGD [facility] Dr. Lundy ESOPHAGOGASTRODUODENOSCOPY TRANSORAL DIAGNOSTIC 12/08/2018 [...] declined. Luis Vital PA-C documented in this encounterOhiohealth Shelby Hospital08-02-2023 Miscellaneous Notes* Telephone Encounter - Leti Hyde - 06/12/2023 4:47 PM EDT Prior Auth Determination: Approved Received via: Fax From: Sanjay Medication/ Treatment: Nurtec 75mg Auth#/ Case#: [id number] Date Period: 06/12/23 - 12/08/23 Notified Pharmacy or Patient: faxed to pharmacy * Telephone Encounter - Barrett Leti - 06/12/2023 10:51 AM EDT Prior Authorization PENDING Prior Authorization Request From: Chandu Tsai Medication/ Treatment: Nurtec Submitted To: Sanjay Via: [facility] Reference# (if available): Duncan: [id number] documented in this encounterOhiohealth Shelby Hospital08-01-2023 Instructions* Patient Instructions* Courtney Anderson PA-C [...] 5-6: 75 mg each evening (3 tabs) MANAGER HARBOR NEW SCRIPT 100 mg each evening (1 [...] Feverfew: Feverfew is a common garden herb [place] to [place] and popular in [place] [...] pepperoni, Pickled ernandez Pods of broad bahena (Cameroonian beans, Korean pea pods, Georgian (faustino) beans, cano and navy beans Ripe [...] too muchlight. These can be obtained at [employer] or [employer]: see list above. 2. Limit use of acute treatments (xgyl-zvy-cbtfsuq medications, triptans, etc.) to no more than [...] and quiet environment. Relax and reduce stress. Aernhzd6Khyev is a free nadege that can instruct you on some simple relaxtionand breathing techniques. Http://Blipify is a free website that provides teaching [...] ensuing treatment plans will be released via Borqs and discussed during your follow-up appointment. Syndexa Pharmaceuticalshart: Please ask the schedulers to give you an activation code. The main way of communication isby Chewset rather than phone lines, so if you have not signed up, please do so. Borqs is also theway that you can review your labs and testing. We are not able to contact everyone to tell them results are normal. If you do not hear back from us regarding testing you have had, it should be considered normal or within normal range. If you have any questions about the results, you are free to message us. Borqs is meant for simple questions regarding medications, possible side effects, or other simplestraight forward questions in limited sentences, rather than multiple paragraphs of discussion. Borqs is not meant for, or efficient for [...] do not comment on most testing on deskwolf in a message or commentary unless there [...] you with this process. documented in this encounterOhiohealth Shelby Hospital08-01-2023 History of Present illness Narrative* Courtney Anderson PA-C - 06/11/2023 12:35 PM EDT Images from the original note were not included. Neurology Outpatient Clinic Date: June 11, 2023 Patient Name: Estuardo Villa Referring physician: Justus Marrufo [facility] [address] Consult requested for headache by Dr. Mcdonald. Recommendations will be communicated via [employer] medicalrecord or US mail. Primary physician: [place] [address] Reason for Evaluation: Headaches Subjective HPI Estuardo [...] associated with childbirth 2006 Hiatal hernia 04/13/2003 [facility] History of 1987,1989,1993 Iron deficiency anemia, unspecified Mental disorder Migraine, unspecified, without mention of intractable migraine without mention of status migrainosus Other pulmonary embolism and infarction 1987 Pulmonary embolism & factor 5 Leiden Family History: FAMILY HISTORY Problem Relation Age of Onset Diabetes Mother Headache Mother Hypertension Mother Heart Father 3 MN's, age 52 Cancer Maternal Grandmother Uterine Blood Disease Brother Leiden factor 5, Blood Disease Other Brother's son, Leiden Factor 5 Also includes: . Social History: Social History Tobacco Use Smoking status: Never Smokeless tobacco: Never Vaping Use Vaping Use: Never used Substance Use Topics Alcohol use: No Drug use: No dietitian assistant Objective 06/11/23 1231 06/11/23 1236 06/11/23 [...] Negative Coordination: finger-to- nose-finger intact bilaterally and lwfc-tc-cbeu intact bilaterally. Gait: Patient's gait is normal, [...] which included preparing to see the patient, pion-lg-odbw patient care, completing clinical documentation, obtaining and/or reviewing separately obtained history, performing a medically appropriate examination, counseling and educating the pat ient/family/caregiver, and ordering medications, tests, or procedures. Courtney Anderson PA-C [facility] This document has been created with the use of voice recognition technology. It may contain inaccuracies: (e.g. misspellings, inaccurate syntax or word sense) that have escaped review. documented in this encounterOhiohealth Shelby Hospital07-28-2023 Miscellaneous Notes* Telephone Encounter - Agnieszka [...] - 06/07/2023 10:04 AM EDT Stefany with [facility] [employer] called in and wanted to let provider know that they received the expedited appeal for Pts MRI. She states they will have it done by tomorrow afternoon, but hope to have it done by later today. documented in this encounterOhiohealth Shelby Hospital07-21-2023 Miscellaneous Notes* Telephone Encounter - Agnieszka [...] doesn't want it to get worse. [facility]ses [facility] her [facility]. ER told her to [...] desk for review. * Telephone Encounter - Justsu Mcdonald MD - 05/31/2023 7:49 AM EDT Letter signed. Send with yesterday and last ov before that where MRI was ordered. Apparently there is no fax number to send appeal so needs mailed. I was sent to [facility] ER last night. I received an [...] in the ER tonight documented in this encounterOhiohealth Shelby Hospital07-18-2023 Miscellaneous Notes* Telephone Encounter - Karen Jay MA - 05/28/2023 8:20 AM EDT Patient phones requesting refills as follows: Requested Prescriptions Pending Prescriptions Disp Refills pantoprazole DR (PROTONIX) 40 mg tablet [Pharmacy Med Name: PANTOPRAZOLE SOD DR 40 MG TAB] 180 tablet Sig: take 1 tablet by mouth once daily Please review and advise. Karen Jay MA documented in this encounterOhiohealth Shelby Hospital07-10-2023 History of Present illness Narrative* Justus [...] EGD 11/24/2020 ESOPHAGOGASTRODUODENOSCOPY TRANSORAL DIAGNOSTIC 04/13/2003 EGD [facility] Dr. Lundy ESOPHAGOGASTRODUODENOSCOPY TRANSORAL DIAGNOSTIC 12/08/2018 EGD HYSTERECTOMY HX 2005 left ovaries INCISE FINGER TENDON SHEATH Left 01/11/2021 Left middle trigger finger release GUERIN W/O FACETEC FORAMOT/DSC 11/12 VRT SGM CRV 2005 Laminectomy, cervical and titianium placed NECK SURGERY HX SKIN BIOPSY HX VAGINAL HYSTERECTOMY FAMILY HISTORY Problem Relation Age of Onset Diabetes Mother Headache Mother Hypertension Mother Heart Father 3 MN's, age 52 Cancer Maternal Grandmother Uterine Blood [...] HORMONE Justus Mcdonald MD documented in this encounterOhiohealth Shelby Hospital07-10-2023 Miscellaneous Notes* Telephone Encounter - Khadra [...] nurse. Sultana Willis RN documented in this encounterOhiohealth Shelby Hospital07-07-2023 Miscellaneous Notes* Telephone Encounter - Sultana Willis RN - 05/17/2023 8:54 AM EDT See telephone encounter 05/17/23. Will close this encounter. Sultana Willis RN * Telephone Encounter - Ruben Ospina LPN - 05/16/2023 3:55 PM EDT Routed to triage pool * Telephone Encounter - Justus Mcdonald MD - 05/16/2023 3:46 PM EDT Needs triaged. Likely needs seen documented in this encounterOhiohealth Shelby Hospital06-27-2023 History of Present illness Narrative* Roger [...] nonsteroidal anti-inflammatory medications including ibuprofen and naproxen bacr-oog-nmhhhmb. Her intake has increased recently with worsening [...] with childbirth 2007 Hiatal hernia 04/13/2003 EGD- [facility] History of 1987,1989,1993 Iron deficiency anemia, unspecified Mental disorder Migraine, unspecified, without mention of intractable migraine without mention of status migrainosus Other pulmonary embolism and infarction 1987 Pulmonary embolism & factor 5 Leiden PAST SURGICAL HISTORY Procedure Laterality Date DELIVERY ONLY 1987,1989,1993 , low transverse EGD 11/24/2020 ESOPHAGOGASTRODUODENOSCOPY TRANSORAL DIAGNOSTIC 04/13/2003 EGD [facility] Dr. Lundy ESOPHAGOGASTRODUODENOSCOPY TRANSORAL DIAGNOSTIC 12/08/2018 [...] Headache Mother Hypertension Mother Heart Father 3 MN's, age 52 Cancer Maternal Grandmother Uterine Blood [...] Abs Lymph 1.00 - 4.00 k/uL 1.70 Collin% % 10.9 Abs Collin <0.87 k/uL 0.62 Eosin% % 1.4 Abs [...] Abs Lymph 1.00 - 4.00 k/uL 2.30 Collin% % 7.5 Abs Collin <0.87 k/uL 0.37 Eosin% % 2.4 Abs [...] iron deficient again. (D68.51) Factor V Leiden ([facility]) Assessment: -The patient had a pulmonary embolism [...] Mcdonald about referral to plastic surgery at [facility]. Portions of this documentation were copied and pasted from previous office visit notes in order to provide a cohesive continuity of the history. The note has been reviewed and edited and updated as necessary. I spent a total of 25 minutes on the date of the service which included preparing to see the patient, zsto-bd-hdex patient care, completing clinical documentation, obtaining and/or reviewing separately obtained history, performing a medically appropriate examination, counseling and educating the pat ient/family/caregiver, ordering medications, tests, or procedures, communicating with other HCPs (not separately reported), and communicating results to the patient/family/caregiver. Roger nUger DO documented in this encounterOhiohealth Shelby Hospital06-27-2023 Miscellaneous Notes* Telephone Encounter - Courtney [...] results. Courtney Iyer LPN documented in this encounterOhiohealth Shelby Hospital05-04-2023 Instructions* Patient Instructions* DELORIS Alonso - [...] pillows when lying down. documented in this encounterOhiohealth Shelby Hospital05-04-2023 History of Present illness Narrative* Maida [...] 14, 2023 11:06 AM documented in this encounterOhiohealth Shelby Hospital05-04-2023 History of Present illness Narrative* DELORIS Alonso - 03/14/2023 11:04 AM EDT Images from the original note were not included. This note was created using Montalvo Systemsriter. Subjective Estuardo Villa is a 52 year [...] EGD 11/24/2020 ESOPHAGOGASTRODUODENOSCOPY TRANSORAL DIAGNOSTIC 04/13/2003 EGD [facility] Dr. Lundy ESOPHAGOGASTRODUODENOSCOPY TRANSORAL DIAGNOSTIC 12/08/2018 [...] Headache Mother Hypertension Mother Heart Father 3 MN's, age 52 Cancer Maternal Grandmother Uterine Blood [...] warranting prompt ER evaluation. documented in this encounterOhiohealth Shelby Hospital04-28-2023 History of Present illness Narrative* Roger [...] nonsteroidal anti-inflammatory medications including ibuprofen and naproxen wybn-twy-ruewwzn. Her intake has increased recently with worsening [...] EGD 11/24/2020 ESOPHAGOGASTRODUODENOSCOPY TRANSORAL DIAGNOSTIC 04/13/2003 EGD [facility] Dr. Lundy ESOPHAGOGASTRODUODENOSCOPY TRANSORAL DIAGNOSTIC 12/08/2018 [...] Headache Mother Hypertension Mother Heart Father 3 MN's, age 52 Cancer Maternal Grandmother Uterine Blood [...] No jaundice or rash. No petechiae. 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 No focal motor [...] Abs Lymph 1.00 - 4.00 k/uL 1.70 Collin% % 10.9 Abs Collin <0.87 k/uL 0.62 Eosin% % 1.4 Abs [...] which included preparing to see the patient, upez-wr-ljvh patient care, completing clinical documentation, obtaining and/or reviewing separately obtained history, performing a medically appropriate examination, counseling and educating the pat ient/family/caregiver, communicating with other HCPs (not separately reported), and communicating results to the patient/family/caregiver. Roger Unger DO documented in this encounterOhiohealth Shelby Hospital04-17-2023 Miscellaneous Notes* Letter - Mammography Coordinator - 02/25/2023 11:50 AM EDT February 26, 2023 PID: [id number] Estuardo Villa [address] [place] [address] Dear Ms. Villa, We are pleased to [...] report will be [facility] as part of your permanent medical record and are available for your continuing care. Thank you for allowing us to help in meeting your health care needs. Sincerely, Dr. Samson Interpreting Radiologist [facility] (Normal over 40) documented in this encounterOhiohealth Shelby Hospital04-14-2023 History of Present illness Narrative* Eva [...] 22, 2023 11:10 AM documented in this encounterOhiohealth Shelby Hospital04-11-2023 Miscellaneous Notes* Telephone Encounter - Kelly [...] - 02/14/2023 1:54 PM EDT Alessandra with [facility] office calling. They have pt there now for a extraction (3) teeth). 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 The dentist would like to know if you can give a medical clearance on pt and call them right back. Please contact Dentist office at [phone] with verbal. Sharon Tobias LPN documented in this encounterOhiohealth Shelby Hospital04-07-2023 Miscellaneous Notes* Telephone Encounter - JOE [...] notify patient. Alyssa Esquivel documented in this encounterOhiohealth Shelby Hospital03-27-2023 Instructions* Patient Instructions* Luis Vital PA-C - 02/04/2023 4:03 PM EDT HEALTH MAINTENANCE: Your Body mass index is 28.34 kg/m . (Target BMI: 19-25) Regular aerobic exercise, low fat diet, and periodic exams are recommended Living Will & Medical Power of Director Of Application Development recommended Periodic Pap smear per risk profile. [...] years after age 45 documented in this encounterOhiohealth Shelby Hospital03-27-2023 History of Present illness Narrative* Luis Vital PA-C - 02/04/2023 3:23 PM EDT 52 year old female with c/o was at [facility] earlier for drug and urine testing showed [...] has been same old Son is in long-term. Very concerned about weight gain Iron deficiency [...] Lymph 1.00 - 4.00 k/uL 1.82 1.70 Collin% % 10.9 10.9 Abs Collin <0.87 k/uL 0.68 0.62 Eosin% % 2.7 [...] Headache Mother Hypertension Mother Heart Father 3 MN's, age 52 Cancer Maternal Grandmother Uterine Blood [...] EGD 11/24/2020 ESOPHAGOGASTRODUODENOSCOPY TRANSORAL DIAGNOSTIC 04/13/2003 EGD [facility] Dr. Lundy ESOPHAGOGASTRODUODENOSCOPY TRANSORAL DIAGNOSTIC 12/08/2018 [...] quantiferon. Luis Vital PA-C documented in this encounterOhiohealth Shelby Hospital03-21-2023 History of Present illness Narrative* Pearl [...] nonsteroidal anti-inflammatory medications including ibuprofen and naproxen hkbz-ktv-tguauby. Her intake has increased recently with worsening [...] EGD 11/24/2020 ESOPHAGOGASTRODUODENOSCOPY TRANSORAL DIAGNOSTIC 04/13/2003 EGD [facility] Dr. Lundy ESOPHAGOGASTRODUODENOSCOPY TRANSORAL DIAGNOSTIC 12/08/2018 [...] Headache Mother Hypertension Mother Heart Father 3 MN's, age 52 Cancer Maternal Grandmother Uterine Blood [...] cc: Amber Mcdonald MD documented in this encounterOhio[facility]03-20-2023 Miscellaneous Notes* Telephone Encounter - Geena [...] Please let me know? documented in this encounterOhiohealth Shelby Hospital01-27-2023 History of Present illness Narrative* Ranjit [...] of Care: created on 12/04/22 through 02/01/23 [place] in home exercise program. Patient will decrease [...] Planned: 8 Planned Treatment Interventions: Therapeutic exercise (57561), Neuromuscular re- education (81652), Manual therapy (66150), Therapeutic activities (24082), Self- [place] [facility] [place] management (36415), Gait Training (18955), Patient/Family/Caregiver Education, Body Mechanics Training PLAN FOR [...] 35 Ranjit Murguia PT documented in this encounterOhio[facility] Hospital01-23-2023 Instructions* Patient Instructions* Amber Lenz APRN.CNP [...] know if no improvement/worsening. documented in this encounterOhiohealth Shelby Hospital01-23-2023 History of Present illness Narrative* Amber [...] EGD 11/24/2020 ESOPHAGOGASTRODUODENOSCOPY TRANSORAL DIAGNOSTIC 04/13/2003 EGD [facility] Dr. Lundy ESOPHAGOGASTRODUODENOSCOPY TRANSORAL DIAGNOSTIC 12/08/2018 [...] Headache Mother Hypertension Mother Heart Father 3 MN's, age 52 Cancer Maternal Grandmother Uterine Blood [...] as needed for worsening/no improvement. Amber Lenz APRN.COIN ROLLING MACHINE OPERATOR This note was partially generated using [employer] recognition system. Note was reviewed for accuracy. There may be minor misspellings or grammar miscues with [employer] voice recognition. documented in this encounterOhiohealth Shelby Hospital01-23-2023 Miscellaneous Notes* Telephone Encounter - Agnieszka Klein Krunal - 12/03/2022 10:30 AM EST Patient phones requesting refills as follows: Requested Prescriptions Pending Prescriptions Disp Refills pantoprazole DR (PROTONIX) 40 mg tablet 30 tablet 5 Sig: Take 1 tablet by mouth once daily. Agnieszka Klein APPLICATION OPERATIONS ENGINEER documented in this encounterOhiohealth Shelby Hospital01-17-2023 Instructions* Patient Instructions* Eva Morton PA-C [...] all of your current medications, including any Xxzn-[id number] medications with you. Medications If you take [...] your exam. 2 10/2019 documented in this encounterOhiohealth Shelby Hospital01-17-2023 History of Present illness Narrative* Eva [...] EGD 11/24/2020 ESOPHAGOGASTRODUODENOSCOPY TRANSORAL DIAGNOSTIC 04/13/2003 EGD [facility] Dr. Lundy ESOPHAGOGASTRODUODENOSCOPY TRANSORAL DIAGNOSTIC 12/08/2018 EGD HYSTERECTOMY HX 2005 left ovaries INCISE FINGER TENDON SHEATH Left 01/11/2021 Left middle trigger finger release GUERIN W/O FACETEC FORAMOT/DSC 1/2 VRT SGM CRV 2006 Laminectomy, cervical and titianium placed NECK SURGERY HX SKIN BIOPSY HX VAGINAL HYSTERECTOMY FAMILY HISTORY Problem Relation Age of Onset Diabetes Mother Headache Mother Hypertension Mother Heart Father 3 MN's, age 52 Cancer Maternal Grandmother Uterine Blood [...] which included preparing to see the patient, [id number] patient care, completing clinical documentation, obtaining and/or reviewing separately obtained history, performing a medically appropriate examination, counseling and educating the pat ient/family/caregiver, ordering medications, tests, or procedures, communicating with other HCPs (not separately reported), independently interpreting results (not separately reported), communicatingresults to the patient/family/caregiver, and care coordination (not separately reported). Eva Morton PA-C November 27, 2022 9:29 AM documented in this encounterOhiohealth Shelby Hospital12-07-2022 Miscellaneous Notes* Telephone Encounter - Raven Barone Pss - 10/17/2022 10:07 AM EST Patient has been identified by name and date of : Yes Last office visit in this department: 04/21/2021 RX INSTRUCTIONS: Aida Villasenor no longer with [facility] in [place]. Patient aware RX will be sent to pharmacy. No need to notify patient. Patient phones requesting refills as follows: Requested Prescriptions Pending Prescriptions Disp Refills promethazine (PHENERGAN) 50 mg tab(s) 60 tablet 3 Sig: Take 1 tablet by mouth every 6 hours as needed. Please review and advise. Raven Barone Pss documented in this encounterOhiohealth Shelby Hospital09-28-2022 Miscellaneous Notes* Telephone Encounter - Serena Hitchcock LPN - 08/08/2022 4:04 PM EDT Response is no PA is needed. * Telephone Encounter - Serena Hitchcock LPN - 08/08/2022 3:54 PM EDT Electronic PA completed for fluoxetine documented in this encounterC[place] [id number] Miscellaneous Notes* Telephone Encounter - Carla Stout [...] notify patient. Carla Stout documented in this encounterOhiohealth Shelby Hospital08-01-2022 Miscellaneous Notes* Telephone Encounter - Aida [...] advise, Elizabeth Mosquera RN documented in this encounterOhiohealth Shelby Hospital03-24-2022 Miscellaneous Notes* Telephone Encounter - Amanda [...] be sent. Thank you. documented in this encounterOhiohealth Shelby Hospital03-24-2022 Miscellaneous Notes* Telephone Encounter - Amanda Lara LPN - 02/01/2022 2:22 PM EDT PATIENT NOTIFIED OF SAME. * Telephone Encounter - Aida Villasenor APRN.CNP - 02/01/2022 12:04 PM EDT I placed a order for omeprazole 40mg sent into [facility] Thanks Aida Villasenor APRN.CNP * Telephone Encounter - Amanda Lara LPN - 02/01/2022 8:37 AM EDT Prior authorization for Nexium was denied. Response noted is that patient would have had tried and failed on preferred drug: lansoprazole, nexium oral packets, or omeprazole. documented in this encounterOhiohealth Shelby Hospital03-22-2022 Miscellaneous Notes* Telephone Encounter - Elizabeth [...] protonix. Please advise patient. documented in this encounterOhiohealth Shelby Hospital03-21-2022 Miscellaneous Notes* Telephone Encounter - Ana [...] patient. Estefany Goss Pss documented in this encounterOhiohealth Shelby Hospital03-21-2022 Instructions* Patient Instructions* Aida Villasenor APRN.CNP [...] Follow up 2 months documented in this encounterOhiohealth Shelby Hospital03-21-2022 History of Present illness Narrative* Aida [...] EGD 11/24/2020 ESOPHAGOGASTRODUODENOSCOPY TRANSORAL DIAGNOSTIC 04/13/2003 EGD [facility] Dr. Lundy ESOPHAGOGASTRODUODENOSCOPY TRANSORAL DIAGNOSTIC 12/08/2018 EGD HYSTERECTOMY HX 2005 left ovaries INCISE FINGER TENDON SHEATH Left 01/11/2021 Left middle trigger finger release GUERIN W/O FACETEC FORAMOT/DSC / VRT SGM CRV 2005 Laminectomy, cervical and titianium placed NECK SURGERY HX SKIN BIOPSY HX VAGINAL HYSTERECTOMY FAMILY HISTORY Problem Relation Age of Onset Diabetes Mother Headache Mother Hypertension Mother Heart Father 3 MN's, age 52 Cancer Maternal Grandmother Uterine Blood [...] with more than 50% of the total [id number] time of the visit in counseling / coordination of care. I have confirmed and edited as necessary, the PFSH and ROS obtained by others. Aida Villasenor APRN.CNP DATE: 01/29/22 TIME: 8:35 AM documented in this encounterOhiohealth Shelby Hospital10-13-2020 History of Present illness Narrative* Desire [...] 23, 2020 1:02 PM [place] [id number] History of Past illness Narrative* Problem Noted Date Resolved Date Galactorrhea not associated with childbirth 06/1209/30/2018 Mastodynia 07/07/2010 09/30/2018 Lump or mass in breast 07/07/2010 8 documented as of this encounter (statuses as of 01/29/2022) [address] History of Past illness Narrative* Problem Noted Date Resolved Date Galactorrhea not associated with childbirth 06/1209/30/2018 Mastodynia 07/07/2010 09/30/2018 Lump or mass in breast 07/07/2010 8 documented as of this encounter (statuses as of 01/29/2022) [address]27[address] History of Past illness Narrative* Problem Noted Date Resolved Date Galactorrhea not associated with childbirth 06/1209/30/2018 Mastodynia 07/07/2010 09/30/2018 Lump or mass in breast 07/07/2010 8 documented as of this encounter (statuses as of 01/29/2022) [address]27-[address] History of Past illness Narrative* Problem Noted Date Resolved Date Galactorrhea not associated with childbirth 06/1209/30/2018 Mastodynia 07/07/2010 09/30/2018 Lump or mass in breast 07/07/2010 8 documented as of this encounter (statuses as of 01/30/2022) [address]27[address] History of Past illness Narrative* Problem Noted Date Resolved Date Galactorrhea not associated with childbirth 06/1209/30/2018 Mastodynia 07/07/2010 09/30/2018 Lump or mass in breast 07/07/2010 8 documented as of this encounter (statuses as of 02/01/2022) [address]27[address] History of Past illness Narrative* Problem Noted Date Resolved Date Galactorrhea not associated with childbirth 06/1209/30/2018 Mastodynia 07/07/2010 09/30/2018 Lump or mass in breast 07/07/2010 8 documented as of this encounter (statuses as of 02/01/2022) [address]27[address] History of Past illness Narrative* Problem Noted Date Resolved Date Galactorrhea not associated with childbirth 06/1209/30/2018 Mastodynia 07/07/2010 09/30/2018 Lump or mass in breast 07/07/2010 8 documented as of this encounter (statuses as of 04/11/2022) [address]27[address] History of Past illness Narrative* Problem Noted Date Resolved Date Galactorrhea not associated with childbirth 06/1209/30/2018 Mastodynia 07/07/2010 09/30/2018 Lump or mass in breast 07/07/2010 8 documented as of this encounter (statuses as of 06/11/2022) [address]27[address] History of Past illness Narrative* Problem Noted Date Resolved Date Galactorrhea not associated with childbirth 06/1209/30/2018 Mastodynia 07/07/2010 09/30/2018 Lump or mass in breast 07/07/2010 8 documented as of this encounter (statuses as of 08/07/2022) [address]27[address] History of Past illness Narrative* Problem Noted Date Resolved Date Galactorrhea not associated with childbirth 06/1209/30/2018 Mastodynia 07/07/2010 09/30/2018 Lump or mass in breast 07/07/2010 8 documented as of this encounter (statuses as of 08/08/2022) [address]27[address] History of Past illness Narrative* Problem Noted Date Resolved Date Galactorrhea not associated with childbirth 06/1209/30/2018 Mastodynia 07/07/2010 09/30/2018 Lump or mass in breast 07/07/2010 8 documented as of this encounter (statuses as of 10/17/2022) [address]27[address] History of Past illness Narrative* Problem Noted Date Resolved Date Galactorrhea not associated with childbirth 06/1209/30/2018 Mastodynia 07/07/2010 09/30/2018 Lump or mass in breast 07/07/2010 8 documented as of this encounter (statuses as of 11/27/2022) [address]27[address] History of Past illness Narrative* Problem Noted Date Resolved Date Galactorrhea not associated with childbirth 06/1209/30/2018 Mastodynia 07/07/2010 09/30/2018 Lump or mass in breast 07/07/2010 8 documented as of this encounter (statuses as of 12/03/2022) [address]27[address] History of Past illness Narrative* Problem Noted Date Resolved Date Galactorrhea not associated with childbirth 06/1209/30/2018 Mastodynia 07/07/2010 09/30/2018 Lump or mass in breast 07/07/2010 8 documented as of this encounter (statuses as of 12/04/2022) [address]27[address] History of Past illness Narrative* Problem Noted Date Resolved Date Galactorrhea not associated with childbirth 06/1209/30/2018 Mastodynia 07/07/2010 09/30/2018 Lump or mass in breast 07/07/2010 8 documented as of this encounter (statuses as of 12/07/2022) [address]27[address] History of Past illness Narrative* Problem Noted Date Resolved Date Galactorrhea not associated with childbirth 06/1209/30/2018 Mastodynia 07/07/2010 09/30/2018 Lump or mass in breast 07/07/2010 8 documented as of this encounter (statuses as of 12/21/2022) [address]27[address] History of Past illness Narrative* Problem Noted Date Resolved Date Galactorrhea not associated with childbirth 06/1209/30/2018 Mastodynia 07/07/2010 09/30/2018 Lump or mass in breast 07/07/2010 8 documented as of this encounter (statuses as of 01/07/2023) [address]27[address] History of Past illness Narrative* Problem Noted Date Resolved Date Galactorrhea not associated with childbirth 06/1209/30/2018 Mastodynia 07/07/2010 09/30/2018 Lump or mass in breast 07/07/2010 8 documented as of this encounter (statuses as of 01/28/2023) [address]27[address] History of Past illness Narrative* Problem Noted Date Resolved Date Galactorrhea not associated with childbirth 06/1209/30/2018 Mastodynia 07/07/2010 09/30/2018 Lump or mass in breast 07/07/2010 8 documented as of this encounter (statuses as of 01/30/2023) [address]27[address] History of Past illness Narrative* Problem Noted Date Resolved Date Galactorrhea not associated with childbirth 06/1209/30/2018 Mastodynia 07/07/2010 09/30/2018 Lump or mass in breast 07/07/2010 8 documented as of this encounter (statuses as of 02/05/2023) [address]27[address] History of Past illness Narrative* Problem Noted Date Resolved Date Galactorrhea not associated with childbirth 06/1209/30/2018 Mastodynia 07/07/2010 09/30/2018 Lump or mass in breast 07/07/2010 8 documented as of this encounter (statuses as of 02/07/2023) [address]27-2010 History of Past illness Narrative* Problem Noted Date Resolved Date Galactorrhea not associated with childbirth 06/1209/30/2018 Mastodynia 07/07/2010 09/30/2018 Lump or mass in breast 07/07/2010 8 documented as of this encounter (statuses as of 02/15/2023) [address]27[address] History of Past illness Narrative* Problem Noted Date Resolved Date Galactorrhea not associated with childbirth 06/1209/30/2018 Mastodynia 07/07/2010 09/30/2018 Lump or mass in breast 07/07/2010 8 documented as of this encounter (statuses as of 02/20/2023) [place] [id number] History of Past illness Narrative* Problem Noted Date Resolved Date Galactorrhea not associated with childbirth 06/1209/30/2018 Mastodynia 07/07/2010 09/30/2018 Lump or mass in breast 07/07/2010 8 documented as of this encounter (statuses as of 02/22/2023) [address]27[address] History of Past illness Narrative* Problem Noted Date Resolved Date Galactorrhea not associated with childbirth 06/1209/30/2018 Mastodynia 07/07/2010 09/30/2018 Lump or mass in breast 07/07/2010 8 documented as of this encounter (statuses as of 02/25/2023) [address]27[address] History of Past illness Narrative* Problem Noted Date Resolved Date Galactorrhea not associated with childbirth 06/1209/30/2018 Mastodynia 07/07/2010 09/30/2018 Lump or mass in breast 07/07/2010 8 documented as of this encounter (statuses as of 02/27/2023) [address]27-2010 History of Past illness Narrative* Problem Noted Date Resolved Date Galactorrhea not associated with childbirth 06/1209/30/2018 Mastodynia 07/07/2010 09/30/2018 Lump or mass in breast 07/07/2010 8 documented as of this encounter (statuses as of 03/06/2023) [place] [address] History of Past illness Narrative* Problem Noted Date Resolved Date Galactorrhea not associated with childbirth 06/1209/30/2018 Mastodynia 07/07/2010 09/30/2018 Lump or mass in breast 07/07/2010 8 documented as of this encounter (statuses as of 03/08/2023) [address]27[address] History of Past illness Narrative* Problem Noted Date Resolved Date Galactorrhea not associated with childbirth 06/1209/30/2018 Mastodynia 07/07/2010 09/30/2018 Lump or mass in breast 07/07/2010 8 documented as of this encounter (statuses as of 03/14/2023) [address]27[address] History of Past illness Narrative* Problem Noted Date Resolved Date Galactorrhea not associated with childbirth 06/1209/30/2018 Mastodynia 07/07/2010 09/30/2018 Lump or mass in breast 07/07/2010 8 documented as of this encounter (statuses as of 05/07/2023) [address]27[address]2010 History of Past illness Narrative* Problem Noted Date Resolved Date Galactorrhea not associated with childbirth 06/1209/30/2018 Mastodynia 07/07/2010 09/30/2018 Lump or mass in breast 07/07/2010 8 documented as of this encounter (statuses as of 05/07/2023) [address]27[address] History of Past illness Narrative* Problem Noted Date Resolved Date Galactorrhea not associated with childbirth 06/1209/30/2018 Mastodynia 07/07/2010 09/30/2018 Lump or mass in breast 07/07/2010 8 documented as of this encounter (statuses as of 05/17/2023) [address]27[address] History of Past illness Narrative* Problem Noted Date Diagnosed Date Resolved Date Galactorrhea not associated with childbirth 07/07/2010 09/30/2018 Mastodynia 07/07/2010 09/30/2018 Lump or mass in breast 07/07/201009/30 documented as of this encounter (statuses as of 05/20/2023) [place] [address] History of Past illness Narrative* Problem Noted Date Diagnosed Date Resolved Date Galactorrhea not associated with childbirth 07/07/2010 09/30/2018 Mastodynia 07/07/2010 09/30/2018 Lump or mass in breast 07/07/201009/30 documented as of this encounter (statuses as of 05/20/2023) [address]27[address] History of Past illness Narrative* Problem Noted Date Diagnosed Date Resolved Date Galactorrhea not associated with childbirth 07/07/2010 09/30/2018 Mastodynia 07/07/2010 09/30/2018 Lump or mass in breast 07/07/201009/30 documented as of this encounter (statuses as of 05/28/2023) [address]27[address] History of Past illness Narrative* Problem Noted Date Diagnosed Date Resolved Date Galactorrhea not associated with childbirth 07/07/2010 09/30/2018 Mastodynia 07/07/2010 09/30/2018 Lump or mass in breast 07/07/201009/30 documented as of this encounter (statuses as of 06/07/2023) [address]27[address]2010 History of Past illness Narrative* Problem Noted Date Diagnosed Date Resolved Date Galactorrhea not associated with childbirth 07/07/2010 09/30/2018 Mastodynia 07/07/2010 09/30/2018 Lump or mass in breast 07/07/201009/30 documented as of this encounter (statuses as of 06/11/2023) [address]27[address] History of Past illness Narrative* Problem Noted Date Diagnosed Date Resolved Date Galactorrhea not associated with childbirth 07/07/2010 09/30/2018 Mastodynia 07/07/2010 09/30/2018 Lump or mass in breast 07/07/201009/30 documented as of this encounter (statuses as of 06/13/2023) [address]27[address]2010 History of Past illness Narrative* Problem Noted Date Diagnosed Date Resolved Date Galactorrhea not associated with childbirth 07/07/2010 09/30/2018 Mastodynia 07/07/2010 09/30/2018 Lump or mass in breast 07/07/201009/30 documented as of this encounter (statuses as of 06/27/2023) [place] [address] History of Past illness Narrative* Problem Noted Date Diagnosed Date Resolved Date Galactorrhea not associated with childbirth 07/07/2010 09/30/2018 Mastodynia 07/07/2010 09/30/2018 Lump or mass in breast 07/07/201009/30 documented as of this encounter (statuses as of 08/10/2023) [address]27[address] History of Past illness Narrative* Problem Noted Date Diagnosed Date Resolved Date Galactorrhea not associated with childbirth 07/07/2010 09/30/2018 Mastodynia 07/07/2010 09/30/2018 Lump or mass in breast 07/07/201009/30 documented as of this encounter (statuses as of 08/16/2023) [address]27[address] History of Past illness Narrative* Problem Noted Date Diagnosed Date Resolved Date Galactorrhea not associated with childbirth 07/07/2010 09/30/2018 Mastodynia 07/07/2010 09/30/2018 Lump or mass in breast 07/07/201009/30 documented as of this encounter (statuses as of 08/24/2023) [place] [address] History of Past illness Narrative* Problem Noted Date Diagnosed Date Resolved Date Galactorrhea not associated with childbirth 07/07/2010 09/30/2018 Mastodynia 07/07/2010 09/30/2018 Lump or mass in breast 07/07/201009/30 documented as of this encounter (statuses as of 08/25/2023) [address]27[address] History of Past illness Narrative* Problem Noted Date Diagnosed Date Resolved Date Galactorrhea not associated with childbirth 07/07/2010 09/30/2018 Mastodynia 07/07/2010 09/30/2018 Lump or mass in breast 07/07/201009/30 documented as of this encounter (statuses as of 08/30/2023) [address]27[address] History of Past illness Narrative* Problem Noted Date Diagnosed Date Resolved Date Galactorrhea not associated with childbirth 07/07/2010 09/30/2018 Mastodynia 07/07/2010 09/30/2018 Lump or mass in breast 07/07/201009/30 documented as of this encounter (statuses as of 09/15/2023) [place] [address] History of Past illness Narrative* Problem Noted Date Diagnosed Date Resolved Date Galactorrhea not associated with childbirth 07/07/2010 09/30/2018 Mastodynia 07/07/2010 09/30/2018 Lump or mass in breast 07/07/201009/30 documented as of this encounter (statuses as of 09/20/2023) [address]27[address] History of Past illness Narrative* Problem Noted Date Diagnosed Date Resolved Date Galactorrhea not associated with childbirth 07/07/2010 09/30/2018 Mastodynia 07/07/2010 09/30/2018 Lump or mass in breast 07/07/201009/30 documented as of this encounter (statuses as of 09/25/2023) [address]27[address]2010 History of Past illness Narrative* Problem Noted Date Diagnosed Date Resolved Date Galactorrhea not associated with childbirth 07/07/2010 09/30/2018 Mastodynia 07/07/2010 09/30/2018 Lump or mass in breast 07/07/201009/30 documented as of this encounter (statuses as of 10/02/2023) [place] [address] History of Past illness Narrative* Problem Noted Date Diagnosed Date Resolved Date Galactorrhea not associated with childbirth 07/07/2010 09/30/2018 Mastodynia 07/07/2010 09/30/2018 Lump or mass in breast 07/07/201009/30 documented as of this encounter (statuses as of 01/09/2024) [place] [address] History of Past illness Narrative* Problem Noted Date Diagnosed Date Resolved Date Galactorrhea not associated with childbirth 07/07/2010 09/30/2018 Mastodynia 07/07/2010 09/30/2018 Lump or mass in breast 07/07/201009/30 documented as of this encounter (statuses as of 02/03/2024) [address]27[address] History of Past illness Narrative* Problem Noted Date Diagnosed Date Resolved Date Galactorrhea not associated with childbirth 07/07/2010 09/30/2018 Mastodynia 07/07/2010 09/30/2018 Lump or mass in breast 07/07/201009/30 documented as of this encounter (statuses as of 02/27/2024) [facility]* Diagnosis Encounter for screening mammogram for [facility] cancer [facility] Diagnosis Gastroesophageal reflux disease with esophagitis without hemorrhage- Primary [facility]* Diagnosis Anxiety Anxiety state, unspecified [facility]* Diagnosis URI with cough and congestion [facility] Diagnosis Heartburn [facility]* Diagnosis Anxiety Anxiety state, unspecified [facility]* Diagnosis Hiatal hernia with GERD and esophagitis- Primary Chronic nausea Nausea alone Screening for colon cancer Special screening for malignant neoplasms, colon Dyspepsia Dyspepsia and other specified disorders of function of stomach Nausea Nausea alone [facility] Diagnosis Heartburn [facility] Diagnosis Acute pain of right knee- Primary [facility] Acute pain of right knee- Primary [facility] Diagnosis Encounter for screening mammogram for breast cancer [facility] Diagnosis Iron deficiency anemia, unspecified iron deficiency anemia type- Primary Hyperlipidemia, unspecified hyperlipidemia type [facility] Diagnosis Iron deficiency anemia due to chronic blood loss- Primary Iron deficiency anemia secondary to blood loss (chronic) Factor V Leiden (HCC) Primary hypercoagulable state [facility] [place]* Diagnosis Wellness examination- Primary Hyperlipidemia, unspecified [...] high risk [facility] [place] [facility] Diagnosis Iron deficiency anemia due to chronic blood loss- Primary Iron deficiency anemia secondary to blood loss (chronic) [facility] [place] [facility] Diagnosis Anxiety Anxiety state, unspecified [facility] [place] [facility] Diagnosis Iron deficiency anemia due to chronic blood loss- Primary Iron deficiency anemia secondary to blood loss (chronic) [facility] [place] [facility] Diagnosis Iron deficiency anemia due to chronic blood loss- Primary Iron deficiency anemia secondary to blood loss (chronic) [facility] [place] [facility] Diagnosis Iron deficiency anemia due to chronic blood loss- Primary Iron deficiency anemia secondary to blood loss (chronic) Factor V Leiden (HCC) Primary hypercoagulable state [facility] [place] [facility] Diagnosis Acute right-sided thoracic back pain- Primary Rib pain on right side Chest pain, unspecified [facility] [place] Diagnosis Iron deficiency anemia due to chronic blood loss- Primary Iron deficiency anemia secondary to blood loss (chronic) Factor V Leiden (HCC) Primary hypercoagulable state [facility] [place] [facility] Diagnosis Other migraine without status migrainosus, not intractable- Primary Daily headache Headache Motion sickness, subsequent encounter Anxiety Anxiety state, unspecified Hot flashes Symptomatic menopausal or female climacteric states [facility] [place] [facility] Diagnosis Heartburn [facility] [place] [facility] Diagnosis Migraine without aura and without status migrainosus, not intractable- Primary Migraine without aura, without mention of intractable migraine without mention of status migrainosus Headache, unspecified headache type Vertigo Dizziness and giddiness documented [facility] [place] [facility] Diagnosis Headache, unspecified headache type- Primary Vertigo Dizziness and giddiness documented [facility] [place] [facility] Diagnosis Microhematuria- Primary Microscopic hematuria Hyperlipidemia, [...] temporomandibular joint disorders [facility] [place] [facility] Diagnosis Rhinosinusitis- Primary Unspecified sinusitis (chronic) documented in this encounter [facility] note* Diagnosis Encounter for screening mammogram for breast cancer [facility] [place] [facility] Diagnosis Headache, unspecified headache type- Primary Migraine without aura and without status migrainosus, not intractable Migraine without aura, without mention of intractable migraine without mention of status migrainosus [facility] [place] [facility] Diagnosis Headache, unspecified headache type documented [facility] [place] [facility] Diagnosis Acute non-recurrent pansinusitis- Primary [facility] [place] [facility] Diagnosis Headache, unspecified headache type- Primary Migraine without aura and without status migrainosus, not intractable Migraine without aura, without mention of intractable migraine without mention of status migrainosus [facility] [place] [facility] Diagnosis Encounter for screening mammogram for breast cancer [facility] [place] [facility] Diagnosis Heartburn documented in this encounter [facility] note* Diagnosis Epigastric pain- Primary Abdominal pain, epigastric Heartburn Chronic superficial gastritis without bleeding Atrophic gastritis without mention of hemorrhage Black stool Nonspecific abnormal finding in stool contents Anxiety Anxiety state, unspecified documented in this encounter [facility] note* Diagnosis Hypercalcemia- Primary Hyperkalemia Hyperpotassemia documented in this encounter [facility] note* Diagnosis Anxiety- Primary Anxiety state, unspecified Hyperlipidemia, unspecified hyperlipidemia type Chronic superficial gastritis without bleeding Atrophic gastritis without mention of hemorrhage documented in this encounter [facility] note* Diagnosis Hyperlipidemia, unspecified hyperlipidemia type documented in this encounter [facility] note* Diagnosis Acute right-sided thoracic back pain Rib pain on right side Chest pain, unspecified documented in this encounter [facility] note* Diagnosis Bilateral hand pain Pain in limb Trigger middle finger of left hand Trigger finger (acquired) documented in this encounter [facility] note* Diagnosis COVID-19- Primary documented in this encounter [facility] note* Diagnosis Patient left without being seen- Primary Surgical or other procedure not carried out because of patient's decision documented in this encounter [facility] note* Diagnosis Acute cough- Primary URI, acute Acute upper respiratory infections of unspecified site Acute cough documented in this encounter [facility] note* Diagnosis Acute cough documented in this encounter [facility] note* Diagnosis Subacute cough- Primary Cough Subacute cough Cough documented in this encounter [facility] note* Diagnosis Subacute cough Cough documented in this encounter [facility] note* Diagnosis Acute bronchitis, unspecified organism- Primary documented in this encounter [facility] noteNo assessment information availableWAdena Regional [facility] Work Phone: Evaluation note* Diagnosis Migraine without aura and without status migrainosus, not intractable- Primary Migraine without aura, without mention of intractable migraine without mention of status migrainosus Anxiety Anxiety state, unspecified Mixed hyperlipidemia Gastroesophageal reflux disease without esophagitis Esophageal reflux Factor V Leiden (HCC) Primary hypercoagulable state Nausea Nausea alone Screening for depression Wellness examination documented in this encounter [facility] note* Diagnosis Heartburn documented in this encounter [facility] note* Diagnosis Pain of left lower extremity- Primary Factor V Leiden (HCC) Primary hypercoagulable state History of pulmonary embolism Personal history of pulmonary embolism [facility] Diagnosis Migraine without aura and without status migrainosus, not intractable Migraine without aura, without mention of intractable migraine without mention of status migrainosus [facility] Additional Instructions Plenty of fluids [...] good. Suspect this to be a viral illness.[facility] Work Phone: Hospital Discharge instructionsAdditional Instructions Ultrasound left lower leg negative for DVT. Use Tylenol as needed. Monitor symptoms and follow-up with your doctor.[facility] Work Phone: Reason for referral (narrative)* Diagnostic Procedure Only (Routine) - Pending Review Specialty Diagnoses / Procedures Referred By Taryn grimaldo Referred To Contact [facility] Diagnoses Encounter for screening mammogram for breast cancer Procedures ASHLEE SCREENING SCREENING MAMMOGRAPHY BI 2-VIEW BREAST INC CAD Justus Mcdonald MD [address] [place] [address] [facility] [address] [place] [address] Referral ID Status Reason Start Date Expiration Date Visits Requested Visits Authorized [id number] Pending Review Auto-Generat ed Referral 01/24/2022 02/23/2023 1 1 [facility] for referral (narrative)* Diagnostic Procedure Only (Routine) - Pending Review Specialty Diagnoses / Procedures Referred By Taryn grimaldo Referred To Contact [facility]CULAR [facility] Diagnoses Chronic nausea Dyspepsia Nausea Procedures NM GASTRIC EMPTYING SOLID GASTRIC EMPTYING STUDY Eva Morton PA-C [address] [facility] [place] [address] Molecular & Functional Imaging [address] [place] [address] Referral ID Status Reason Start Date Expiration Date Visits Requested Visits Authorized [id number] Pending Review Auto-Generat ed Referral 11/27/2022 12/27/2023 1 1 * Outpatient Procedure (Routine) - Pending Review Specialty Diagnoses / Procedures Referred By Contac t Referred To Contact [facility] Diagnoses Screening for colon cancer Procedures COLONOSCOPY SCREENING COLONOSCOPY FLX DX W/COLLJ SPEC WHEN PFRMD Eva Morton PA-C [address] [place] [address] [facility] [address] [place] [address] Referral ID Status Reason Start Date Expiration Date Visits Requested Visits Authorized [id number] Pending Review Auto-Generat ed Referral 11/27/2022 11/27/2023 1 1 [facility] for referral (narrative)* Diagnostic Procedure Only (Routine) - Pending Review Specialty Diagnoses / Procedures Referred By Taryn t Referred To Contact [facility] Diagnoses Encounter for screening mammogram for breast cancer Procedures ASHLEE SCREENING SCREENING MAMMOGRAPHY BI 2-VIEW BREAST INC CAD Justus Mcdonald MD [address] [place] [address] [facility] [address] [place] [address] Referral ID Status Reason Start Date Expiration Date Visits Requested Visits Authorized [id number] Pending Review Auto-Generat ed Referral 01/02/2023 02/01/2024 1 1 [facility] for referral (narrative)* Diagnostic Procedure Only (Routine) - Authorized Specialty Diagnoses / Procedures Referred By Contac t Referred To Contact [facility] Diagnoses Encounter for screening mammogram for malignant neoplasm of breast Procedures ASHLEE SCREENING SCREENING MAMMOGRAPHY BI 2-VIEW BREAST INC Luis Hines PA-C [address] [place] [address] [facility] [address] [place] [address] Referral ID Status Reason Start Date Expiration Date Visits Requested Visits Authorized [id number] Authorized Auto-Generat ed Referral 02/04/2023 03/05/2024 1 1 [facility] for referral (narrative)* Diagnostic Procedure Only (Urgent) - Closed Specialty Diagnoses / Procedures Referred By Contac t Referred To Contact XR IMAGING Diagnoses Acute right-sided thoracic back pain Rib pain on right side Procedures XR THORACIC GENERAL 3V AP/LAT/SWIMMERS RADEX SPINE THORACIC 3 VIEWS [facility] [address] [place] [address] Xr Imaging Referral ID Status Reason Start Date Expiration Date V isits Requested Visits Authorized [id number] Closed Auto-Generate d Referral 03/14/2023 04/12/2024 1 1 * Diagnostic Procedure Only (Urgent) - Closed Specialty Diagnoses / Procedures Referred By Contac t Referred To Contact XR IMAGING Diagnoses Acute right-sided thoracic back pain Rib pain on right side Procedures XR RIBS/CHEST 3V AP RIB/OBLS/CXR RIGHT RADEX RIBS UNI W/POSTEROANT CH MINIMUM 3 VIEWS [facility] [address] [place] [address] Xr Imaging Referral ID Status Reason Start Date Expiration Date V isits Requested Visits Authorized [id number] Closed Auto-Generate d Referral 03/14/2023 04/12/2024 1 1 [facility] for referral (narrative)* Diagnostic Procedure Only (Routine) - Closed Specialty Diagnoses / Procedures Referred By Contac t Referred To Contact [facility] Diagnoses Encounter for screening mammogram for breast cancer Procedures ASHLEE SCREENING SCREENING MAMMOGRAPHY BI 2-VIEW BREAST INC CAD Justus Mcdonald MD [address] [place] [address] [facility] [address] [place] [address] Referral ID Status Reason Start Date Expiration Date V isits Requested Visits Authorized [id number] Closed Auto-Generate d Referral 01/24/2022 02/23/2023 1 1 [facility] for referral (narrative)* Diagnostic Procedure Only (Routine) - Pending Review Specialty Diagnoses / Procedures Referred By Contac t Referred To Contact [facility] Diagnoses Encounter for screening mammogram for breast cancer Procedures ASHLEE SCREENING SCREENING MAMMOGRAPHY BI 2-VIEW BREAST INC CAD Harry, Justus Kern MD [address] [place] [address] [facility] [address] [place] [address] Referral ID Status Reason Start Date Expiration Date Visits Requested Visits Authorized [id number] Pending Review Auto-Generat ed Referral 04/01/2024 05/01/2025 1 1 [facility] for referral (narrative)* Diagnostic Procedure Only (Urgent) - Closed Specialty Diagnoses / Procedures Referred By Contac t Referred To Contact XR IMAGING Diagnoses Acute right-sided thoracic back pain Rib pain on right side Procedures XR THORACIC GENERAL 3V AP/LAT/SWIMMERS RADEX SPINE THORACIC 3 VIEWS [facility] [address] [place] [address] [place] [address] Referral ID Status Reason Start Date Expiration Date V isits Requested Visits Authorized [id number] Closed Auto-Generate d Referral 03/14/2023 04/12/2024 1 1 * Diagnostic Procedure Only (Urgent) - Closed Specialty Diagnoses / Procedures Referred By Contac t Referred To Contact XR IMAGING Diagnoses Acute right-sided thoracic back pain Rib pain on right side Procedures XR RIBS/CHEST 3V AP RIB/OBLS/CXR RIGHT RADEX RIBS UNI W/POSTEROANT CH MINIMUM 3 VIEWS [facility] [address] [place] [address] [place] [address] Referral ID Status Reason Start Date Expiration Date V isits Requested Visits Authorized [id number] Closed Auto-Generate d Referral 03/14/2023 04/12/2024 1 1 [facility] for referral (narrative)No reason for referral information availableWAdena Regional [facility] Work Phone: [facility] Narrative* Diagnostic Procedure Only (Routine) - Closed Specialty Diagnoses / Procedures Referred By Taryn t Referred To Contact [facility] Diagnoses Encounter for screening mammogram for breast cancer Procedures ASHLEE SCREENING SCREENING MAMMOGRAPHY BI 2-VIEW BREAST INC CAD Justus Mcdonald MD [address] [place] [address] [facility] [address] [facility] [address] Referral ID Status Reason Start Date Expiration Date V isits Requested Visits Authorized [id number] Closed Auto-Generate d Referral 01/24/2022 02/23/2023 1 1 [facility] for visit Narrative* Diagnostic Procedure Only (Urgent) - Closed Specialty Diagnoses / Procedures Referred By Tayrn grimaldo Referred To Contact XR IMAGING Diagnoses Acute right-sided thoracic back pain Rib pain on right side Procedures XR THORACIC GENERAL 3V AP/LAT/SWIMMERS RADEX SPINE THORACIC 3 VIEWS [facility] [address] [place] [address] [place] [address] Referral ID Status Reason Start Date Expiration Date V isits Requested Visits Authorized [id number] Closed Auto-Generate d Referral 03/14/2023 04/12/2024 1 1 [facility] for visit Narrative* Financial Clearance (Routine) - Authorized Specialty Diagnoses / Procedures Referred By Taryn grimaldo Referred To Contact Diagnoses . Procedures . [place] [facility] [place] [address] Referral ID Status Reason Start Date Expiration Date Visits Requested Visits Authorized [id number] Authorized Patient Cleared - Qualified 100% FAS 05/10/2025 08/08/2025 99 99 [facility] Summary Purpose Family History No Family History Records Found Relationship Condition Age at Onset Recorded Date/T crow mother Diabetes mellitus Unknown grandmother Malignant neoplasm of cervix Unknown Relationship Condition Age at Onset Recorded Date/T crow mother Diabetes mellitus Unknown Heart disease Unknown grandmother Malignant neoplasm of cervix Unknown Advance Directives No Advanced Directives Records FoundDocuments on File Type Date Recorded 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 Advance Directive(s) 01/11/2021 10:36 AM Advance Directive(s) 12/30/2020 9:15 AM Advance Directive(s) 11/24/2020 7:46 AM Advance Directive(s) 11/15/2020 4:36 PM Advance Directive(s) 12/08/2018 11:45 AM Documents on File Type Date Recorded 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 No March 29, 2025 8:24pm Advance Directives No September 1:09pm Advance Directive Response Recorded Date/ Time Do you have a Healthcare Power of Director Of Application Development? No March 29, 2025 8:24pm Do you have a Healthcare Power of Director Of Application Development? No July 07, 2025 5:00pm Advance Directives No September 1:09pm Reason for Referral Specialty Diagnoses / Procedures Referred By Contac t Referred To Contact Aida Villasenor APRN.COIN ROLLING MACHINE OPERATOR [address] [place] [address] Referral ID Status Reason Start Date Expiration Date V isits Requested Visits Authorized [id number] Pending Review 1 1 Specialty Diagnoses / Procedures Referred By Contac t Referred To Contact Justus Hughes MD [address] [place] [address] Referral ID Status Reason Start Date Expiration Date V isits Requested Visits Authorized [id number] Pending Review 1 1 Referral ID Status Reason Start Date Expiration Date V isits Requested Visits Authorized [id number] Pending Review 1 1 Specialty Diagnoses / Procedures Referred By Contac t Referred To Contact [facility] Diagnoses Acute pain of right knee Procedures CONSULT TO PHYSICAL THERAPY PHYSICAL THERAPY EVALUATION HIGH COMPLEX 45 MINS Haagen, Amber, GLASS GRINDER.COIN ROLLING MACHINE OPERATOR [address] [place] [address] [facility] [address] [place] [address] Referral ID Status Reason Start Date Expiration Date Visits Requested Visits Authorized [id number] Pending Review Auto-Generat ed Referral 12/03/2022 12/03/2023 1 1 Specialty Diagnoses / Procedures Referred By Contac t Referred To Contact [facility] Diagnoses Acute pain of right knee Procedures PT REHAB FOLLOW UP ORDER THERAPEUTIC EXERCISES RE, EA 15 MIN. Ranjit Murguia PT [facility] [address] [place] [address] Referral ID Status Reason Start Date Expiration Date Visits Requested Visits Authorized [id number] Waiting for Online Response PCP Requested Referral Auto-Generate d Referral 12/07/2022 03/07/2023 8 8 Specialty Diagnoses / Procedures Referred By Contac t Referred To Contact Diagnoses Iron deficiency anemia, unspecified iron deficiency anemia type Procedures CONSULT TO HEMATOLOGY/ONCOLOGY OFFICE/OUTPATIENT [facility] 60-74 MINUTES Amber Lenz APRN.COIN ROLLING MACHINE OPERATOR [address] [place] [address] Referral ID Status Reason Start Date Expiration Date Visits Requested Visits Authorized [id number] Authorized PCP Requested Referral 01/25/2023 01/25/2024 1 1 Specialty Diagnoses / Procedures Referred By Contac t Referred To Contact [facility] Diagnoses Daily headache Motion sickness, subsequent encounter Procedures MRI BRAIN WO IVCON MRI BRAIN BRAIN STEM W/O CONTRAST MATERIAL Justus Mcdonald MD [address] [place] [address] Mr Imaging Referral ID Status Reason Start Date Expiration Date Visits Requested Visits Authorized [id number] Additional Clinical Info Needed Auto-Generat ed Referral 05/20/2023 06/18/2024 1 1 Specialty Diagnoses / Procedures Referred By Contac t Referred To Contact Neurology Diagnoses Headache, unspecified headache type Vertigo Procedures CONSULT TO NEUROLOGY OFFICE/OUTPATIENT [facility] 60-74 MINUTES Justus Mcdonald MD [address] [place] [address] Referral ID Status Reason Start Date Expiration Date V isits Requested Visits Authorized [id number] Closed PCP Requested Referral 05/31/2023 05/30/2024 1 1 Specialty Diagnoses / Procedures Referred By Contac t Referred To Contact Courtney Anderson PA-C [address] [place] [address] Referral ID Status Reason Start Date Expiration Date V isits Requested Visits Authorized [id number] Pending Review 1 1 Specialty Diagnoses / Procedures Referred By Contac t Referred To Contact Courtney Anderson PA-C [address] [place] [address] Referral ID Status Reason Start Date Expiration Date V isits Requested Visits Authorized [id number] Pending Review 1 1 Specialty Diagnoses / Procedures Referred By Contac t Referred To Contact [facility] Diagnoses Hyperlipidemia, unspecified hyperlipidemia type Procedures CONSULT TO LIPID CLINIC OFFICE/OUTPATIENT [facility] 60 MINUTES 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 Dr nUger taking over New Bag/Syringe/Bottle 02/25/2023 2:09 PM [...] section and content) DATE CREATED AUTHOR 05/07/2018 [facility] DATE CREATED AUTHOR AUTHOR'S ORGANIZ ATION 06/04/2018 [facility] ([place]) DATE CREATED AUTHOR AUTHOR'S ORGANIZ ATION 01/12/2021 [facility] DATE CREATED AUTHOR AUTHOR'S ORGANIZ ATION 11/20/2021 [facility] DATE CREATED AUTHOR AUTHOR'S ORGANIZ ATION 07/09/2025 [facility] DATE CREATED AUTHOR AUTHOR'S ORGANIZ ATION 07/15/2025 [facility] Comments (unrecognize d section and content) In the event this informatio n is protected by the Federal Confidentiality of Alcohol and Drug Abuse Patient Records regulations: The Federal rules restrict any use of the information to criminally investigate or prosecute any alcohol or drug abuse patient.[facility] the event this information is protected by the Federal Confidentiality of Alcohol and Drug Abuse Patient Records regulations: The Federal rules restrict any use of the information to criminally investigate or prosecute any alcohol or drug abuse patient.[facility] the event this information is protected by the Federal Confidentiality of Alcohol and Drug Abuse Patient Records regulations: The Federal rules restrict any use of the information to criminally investigate or prosecute any alcohol or drug abuse patient.[facility] the event this information is protected by the Federal Confidentiality of Alcohol and Drug Abuse Patient Records regulations: The Federal rules restrict any use of the information to criminally investigate or prosecute any alcohol or drug abuse patient.[facility] the event this information is protected by the Federal Confidentiality of Alcohol and Drug Abuse Patient Records regulations: The Federal rules restrict any use of the information to criminally investigate or prosecute any alcohol or drug abuse patient.[facility] the event this information is protected by the Federal Confidentiality of Alcohol and Drug Abuse Patient Records regulations: The Federal rules restrict any use of the information to criminally investigate or prosecute any alcohol or drug abuse patient.[facility] the event this information is protected by the Federal Confidentiality of Alcohol and Drug Abuse Patient Records regulations: The Federal rules restrict any use of the information to criminally investigate or prosecute any alcohol or drug abuse patient.[facility] HospitalIn the event this information is protected [...] or prosecute any alcohol or drug abuse patient.[facility] HospitalIn the event this information is protected by the Federal Confidentiality of Alcohol and Drug Abuse Patient Records regulations: The Federal rules restrict any use of the information to criminally investigate or prosecute any alcohol or drug abuse patient.[facility] HospitalIn the event this information is protected by the Federal Confidentiality of Alcohol and Drug Abuse Patient Records regulations: The Federal rules restrict any use of the information to criminally investigate or prosecute any alcohol or drug abuse patient.[facility] HospitalIn the event this information is protected by the Federal Confidentiality of Alcohol and Drug Abuse Patient Records regulations: The Federal rules restrict any use of the information to criminally investigate or prosecute any alcohol or drug abuse patient.[facility] HospitalIn the event this information is protected by the Federal Confidentiality of Alcohol and Drug Abuse Patient Records regulations: The Federal rules restrict any use of the information to criminally investigate or prosecute any alcohol or drug abuse patient.[facility] HospitalIn the event this information is protected by the Federal Confidentiality of Alcohol and Drug Abuse Patient Records regulations: The Federal rules restrict any use of the information to criminally investigate or prosecute any alcohol or drug abuse patient.[facility] HospitalIn the event this information is protected by the Federal Confidentiality of Alcohol and Drug Abuse Patient Records regulations: The Federal rules restrict any use of the information to criminally investigate or prosecute any alcohol or drug abuse patient.[facility] HospitalIn the event this information is protected by the Federal Confidentiality of Alcohol and Drug Abuse Patient Records regulations: The Federal rules restrict any use of the information to criminally investigate or prosecute any alcohol or drug abuse patient.[facility] HospitalIn the event this information is protected by the Federal Confidentiality of Alcohol and Drug Abuse Patient Records regulations: The Federal rules restrict any use of the information to criminally investigate or prosecute any alcohol or drug abuse patient.[facility] HospitalIn the event this information is protected by the Federal Confidentiality of Alcohol and Drug Abuse Patient Records regulations: The Federal rules restrict any use of the information to criminally investigate or prosecute any alcohol or drug abuse patient.[facility] HospitalIn the event this information is protected by the Federal Confidentiality of Alcohol and Drug Abuse Patient Records regulations: The Federal rules restrict any use of the information to criminally investigate or prosecute any alcohol or drug abuse patient.[facility] HospitalIn the event this information is protected by the Federal Confidentiality of Alcohol and Drug Abuse Patient Records regulations: The Federal rules restrict any use of the information to criminally investigate or prosecute any alcohol or drug abuse patient.[facility] HospitalIn the event this information is protected by the Federal Confidentiality of Alcohol and Drug Abuse Patient Records regulations: The Federal rules restrict any use of the information to criminally investigate or prosecute any alcohol or drug abuse patient.[facility] HospitalIn the event this information is protected by the Federal Confidentiality of Alcohol and Drug Abuse Patient Records regulations: The Federal rules restrict any use of the information to criminally investigate or prosecute any alcohol or drug abuse patient.[facility] HospitalIn the event this information is protected by the Federal Confidentiality of Alcohol and Drug Abuse Patient Records regulations: The Federal rules restrict any use of the information to criminally investigate or prosecute any alcohol or drug abuse patient.[facility] HospitalIn the event this information is protected by the Federal Confidentiality of Alcohol and Drug Abuse Patient Records regulations: The Federal rules restrict any use of the information to criminally investigate or prosecute any alcohol or drug abuse patient.[facility] HospitalIn the event this information is protected by the Federal Confidentiality of Alcohol and Drug Abuse Patient Records regulations: The Federal rules restrict any use of the information to criminally investigate or prosecute any alcohol or drug abuse patient.[facility] HospitalIn the event this information is protected by the Federal Confidentiality of Alcohol and Drug Abuse Patient Records regulations: The Federal rules restrict any use of the information to criminally investigate or prosecute any alcohol or drug abuse patient.[facility] HospitalIn the event this information is protected by the Federal Confidentiality of Alcohol and Drug Abuse Patient Records regulations: The Federal rules restrict any use of the information to criminally investigate or prosecute any alcohol or drug abuse patient.[facility] HospitalIn the event this information is protected by the Federal Confidentiality of Alcohol and Drug Abuse Patient Records regulations: The Federal rules restrict any use of the information to criminally investigate or prosecute any alcohol or drug abuse patient.[facility] HospitalIn the event this information is protected by the Federal Confidentiality of Alcohol and Drug Abuse Patient Records regulations: The Federal rules restrict any use of the information to criminally investigate or prosecute any alcohol or drug abuse patient.[facility] HospitalIn the event this information is protected by the Federal Confidentiality of Alcohol and Drug Abuse Patient Records regulations: The Federal rules restrict any use of the information to criminally investigate or prosecute any alcohol or drug abuse patient.[facility] HospitalIn the event this information is protected by the Federal Confidentiality of Alcohol and Drug Abuse Patient Records regulations: The Federal rules restrict any use of the information to criminally investigate or prosecute any alcohol or drug abuse patient.[facility] HospitalIn the event this information is protected by the Federal Confidentiality of Alcohol and Drug Abuse Patient Records regulations: The Federal rules restrict any use of the information to criminally investigate or prosecute any alcohol or drug abuse patient.[facility] HospitalIn the event this information is protected by the Federal Confidentiality of Alcohol and Drug Abuse Patient Records regulations: The Federal rules restrict any use of the information to criminally investigate or prosecute any alcohol or drug abuse patient.[facility] HospitalIn the event this information is protected by the Federal Confidentiality of Alcohol and Drug Abuse Patient Records regulations: The Federal rules restrict any use of the information to criminally investigate or prosecute any alcohol or drug abuse patient.[facility] HospitalIn the event this information is protected by the Federal Confidentiality of Alcohol and Drug Abuse Patient Records regulations: The Federal rules restrict any use of the information to criminally investigate or prosecute any alcohol or drug abuse patient.[facility] HospitalIn the event this information is protected by the Federal Confidentiality of Alcohol and Drug Abuse Patient Records regulations: The Federal rules restrict any use of the information to criminally investigate or prosecute any alcohol or drug abuse patient.[facility] HospitalIn the event this information is protected by the Federal Confidentiality of Alcohol and Drug Abuse Patient Records regulations: The Federal rules restrict any use of the information to criminally investigate or prosecute any alcohol or drug abuse patient.[facility] HospitalIn the event this information is protected by the Federal Confidentiality of Alcohol and Drug Abuse Patient Records regulations: The Federal rules restrict any use of the information to criminally investigate or prosecute any alcohol or drug abuse patient.[facility] HospitalIn the event this information is protected by the Federal Confidentiality of Alcohol and Drug Abuse Patient Records regulations: The Federal rules restrict any use of the information to criminally investigate or prosecute any alcohol or drug abuse patient.[facility] HospitalIn the event this information is protected by the Federal Confidentiality of Alcohol and Drug Abuse Patient Records regulations: The Federal rules restrict any use of the information to criminally investigate or prosecute any alcohol or drug abuse patient.[facility] HospitalIn the event this information is protected by the Federal Confidentiality of Alcohol and Drug Abuse Patient Records regulations: The Federal rules restrict any use of the information to criminally investigate or prosecute any alcohol or drug abuse patient.[facility] HospitalIn the event this information is protected by the Federal Confidentiality of Alcohol and Drug Abuse Patient Records regulations: The Federal rules restrict any use of the information to criminally investigate or prosecute any alcohol or drug abuse patient.[facility] HospitalIn the event this information is protected by the Federal Confidentiality of Alcohol and Drug Abuse Patient Records regulations: The Federal rules restrict any use of the information to criminally investigate or prosecute any alcohol or drug abuse patient.[facility] HospitalIn the event this information is protected by the Federal Confidentiality of Alcohol and Drug Abuse Patient Records regulations: The Federal rules restrict any use of the information to criminally investigate or prosecute any alcohol or drug abuse patient.[facility] HospitalIn the event this information is protected by the Federal Confidentiality of Alcohol and Drug Abuse Patient Records regulations: The Federal rules restrict any use of the information to criminally investigate or prosecute any alcohol or drug abuse patient.[facility] HospitalIn the event this information is protected by the Federal Confidentiality of Alcohol and Drug Abuse Patient Records regulations: The Federal rules restrict any use of the information to criminally investigate or prosecute any alcohol or drug abuse patient.[facility] HospitalIn the event this information is protected by the Federal Confidentiality of Alcohol and Drug Abuse Patient Records regulations: The Federal rules restrict any use of the information to criminally investigate or prosecute any alcohol or drug abuse patient.[facility] HospitalIn the event this information is protected by the Federal Confidentiality of Alcohol and Drug Abuse Patient Records regulations: The Federal rules restrict any use of the information to criminally investigate or prosecute any alcohol or drug abuse patient.[facility] HospitalIn the event this information is protected by the Federal Confidentiality of Alcohol and Drug Abuse Patient Records regulations: The Federal rules restrict any use of the information to criminally investigate or prosecute any alcohol or drug abuse patient.[facility] HospitalIn the event this information is protected by the Federal Confidentiality of Alcohol and Drug Abuse Patient Records regulations: The Federal rules restrict any use of the information to criminally investigate or prosecute any alcohol or drug abuse patient.[facility] HospitalIn the event this information is protected by the Federal Confidentiality of Alcohol and Drug Abuse Patient Records regulations: The Federal rules restrict any use of the information to criminally investigate or prosecute any alcohol or drug abuse patient.[facility] HospitalIn the event this information is protected by the Federal Confidentiality of Alcohol and Drug Abuse Patient Records regulations: The Federal rules restrict any use of the information to criminally investigate or prosecute any alcohol or drug abuse patient.[facility] HospitalIn the event this information is protected by the Federal Confidentiality of Alcohol and Drug Abuse Patient Records regulations: The Federal rules restrict any use of the information to criminally investigate or prosecute any alcohol or drug abuse patient.[facility] HospitalIn the event this information is protected by the Federal Confidentiality of Alcohol and Drug Abuse Patient Records regulations: The Federal rules restrict any use of the information to criminally investigate or prosecute any alcohol or drug abuse patient.[facility] HospitalIn the event this information is protected by the Federal Confidentiality of Alcohol and Drug Abuse Patient Records regulations: The Federal rules restrict any use of the information to criminally investigate or prosecute any alcohol or drug abuse patient.[facility] the event this information is protected by the Federal Confidentiality of Alcohol and Drug Abuse Patient Records regulations: The Federal rules restrict any use of the information to criminally investigate or prosecute any alcohol or drug abuse patient.[facility] HospitalIn the event this information is protected by the Federal Confidentiality of Alcohol and Drug Abuse Patient Records regulations: The Federal rules restrict any use of the information to criminally investigate or prosecute any alcohol or drug abuse patient.[facility] HospitalIn the event this information is protected [...] or prosecute any alcohol or drug abuse patient.[facility] HospitalIn the event this information is protected by the Federal Confidentiality of Alcohol and Drug Abuse Patient Records regulations: The Federal rules restrict any use of the information to criminally investigate or prosecute any alcohol or drug abuse patient.[facility] HospitalIn the event this information is protected by the Federal Confidentiality of Alcohol and Drug Abuse Patient Records regulations: The Federal rules restrict any use of the information to criminally investigate or prosecute any alcohol or drug abuse patient.[facility] HospitalIn the event this information is protected by the Federal Confidentiality of Alcohol and Drug Abuse Patient Records regulations: The Federal rules restrict any use of the information to criminally investigate or prosecute any alcohol or drug abuse patient.[facility] HospitalIn the event this information is protected by the Federal Confidentiality of Alcohol and Drug Abuse Patient Records regulations: The Federal rules restrict any use of the information to criminally investigate or prosecute any alcohol or drug abuse patient.[facility] HospitalIn the event this information is protected by the Federal Confidentiality of Alcohol and Drug Abuse Patient Records regulations: The Federal rules restrict any use of the information to criminally investigate or prosecute any alcohol or drug abuse patient.[facility] HospitalIn the event this information is protected by the Federal Confidentiality of Alcohol and Drug Abuse Patient Records regulations: The Federal rules restrict any use of the information to criminally investigate or prosecute any alcohol or drug abuse patient.[facility] HospitalIn the event this information is protected by the Federal Confidentiality of Alcohol and Drug Abuse Patient Records regulations: The Federal rules restrict any use of the information to criminally investigate or prosecute any alcohol or drug abuse patient.[facility] HospitalIn the event this information is protected by the Federal Confidentiality of Alcohol and Drug Abuse Patient Records regulations: The Federal rules restrict any use of the information to criminally investigate or prosecute any alcohol or drug abuse patient.[facility] HospitalIn the event this information is protected by the Federal Confidentiality of Alcohol and Drug Abuse Patient Records regulations: The Federal rules restrict any use of the information to criminally investigate or prosecute any alcohol or drug abuse patient.[facility] HospitalIn the event this information is protected by the Federal Confidentiality of Alcohol and Drug Abuse Patient Records regulations: The Federal rules restrict any use of the information to criminally investigate or prosecute any alcohol or drug abuse patient.[facility] HospitalIn the event this information is protected by the Federal Confidentiality of Alcohol and Drug Abuse Patient Records regulations: The Federal rules restrict any use of the information to criminally investigate or prosecute any alcohol or drug abuse patient.[facility] HospitalIn the event this information is protected by the Federal Confidentiality of Alcohol and Drug Abuse Patient Records regulations: The Federal rules restrict any use of the information to criminally investigate or prosecute any alcohol or drug abuse patient.[facility] HospitalIn the event this information is protected by the Federal Confidentiality of Alcohol and Drug Abuse Patient Records regulations: The Federal rules restrict any use of the information to criminally investigate or prosecute any alcohol or drug abuse patient.[facility] HospitalIn the event this information is protected by the Federal Confidentiality of Alcohol and Drug Abuse Patient Records regulations: The Federal rules restrict any use of the information to criminally investigate or prosecute any alcohol or drug abuse patient.[facility] HospitalIn the event this information is protected by the Federal Confidentiality of Alcohol and Drug Abuse Patient Records regulations: The Federal rules restrict any use of the information to criminally investigate or prosecute any alcohol or drug abuse patient.[facility] HospitalIn the event this information is protected by the Federal Confidentiality of Alcohol and Drug Abuse Patient Records regulations: The Federal rules restrict any use of the information to criminally investigate or prosecute any alcohol or drug abuse patient.[facility] HospitalIn the event this information is protected by the Federal Confidentiality of Alcohol and Drug Abuse Patient Records regulations: The Federal rules restrict any use of the information to criminally investigate or prosecute any alcohol or drug abuse patient.[facility] HospitalIn the event this information is protected by the Federal Confidentiality of Alcohol and Drug Abuse Patient Records regulations: The Federal rules restrict any use of the information to criminally investigate or prosecute any alcohol or drug abuse patient.[facility] HospitalIn the event this information is protected by the Federal Confidentiality of Alcohol and Drug Abuse Patient Records regulations: The Federal rules restrict any use of the information to criminally investigate or prosecute any alcohol or drug abuse patient.[facility] Care Teams (unrecognized sec tion and content) Retail Sales Lead Relationship Specialty Start Date End Date Justus Mcdonald MD [address] [place] [address] PCP - General Family Practice 09/30/18 Retail Sales Lead Relationship Specialty Start Date End Date Justus Mcdonald MD [address] [place] [id number] PCP - General Family Practice 09/30/18 Retail Sales Lead Relationship Specialty Start Date End Date Justus Mcdonald MD [address] [place] [id number] PCP - General Family Practice 09/30/18 Retail Sales Lead Relationship Specialty Start Date End Date Justus Mcdonald MD [address] [place] [address] [place] [address] PCP - General Family Practice 09/30/18 Retail Sales Lead Relationship Specialty Start Date End Date Justus Mcdonald MD [address] [place] [id number] PCP - General Family Practice 09/30/18 Retail Sales Lead Relationship Specialty Start Date End Date Justus Mcdonald MD [address] [place] [address] [place] [address] PCP - General Family Practice 09/30/18 Retail Sales Lead Relationship Specialty Start Date End Date Justus Mcdonald MD [address] [place] [id number] PCP - General Family Practice 09/30/18 Retail Sales Lead Relationship Specialty Start Date End Date Justus Mcdonald MD [address] [facility] [place] [address] PCP - General Family Medicine 09/30/18 Retail Sales Lead Relationship Specialty Start Date End Date Justus Mcdonald MD [address] [facility] [place] [address] PCP - General Family Medicine 09/30/18 Retail Sales Lead Relationship Specialty Start Date End Date Justus Mcdonald MD [address] [facility] [place] [address] PCP - General Family Medicine 09/30/18 Retail Sales Lead Relationship Specialty Start Date End Date Justus Mcdonald MD [address] [facility] [place] [address] PCP - General Family Medicine 09/30/18 Retail Sales Lead Relationship Specialty Start Date End Date Justus Mcdonald MD [address] [facility] [place] [address] PCP - General Family Medicine 09/30/18 Retail Sales Lead Relationship Specialty Start Date End Date Justus Mcdonald MD [address] [facility] [place] [address] PCP - General Family Medicine 09/30/18 Retail Sales Lead Relationship Specialty Start Date End Date Justus Mcdonald MD [address] [facility] [place] [address] PCP - General Family Medicine 09/30/18 Retail Sales Lead Relationship Specialty Start Date End Date Justus Mcdonald MD [address] [facility] [place] [address] PCP - General Family Medicine 09/30/18 Retail Sales Lead Relationship Specialty Start Date End Date Justus Mcdonald MD [address] [facility] [place] [address] PCP - General Family Medicine 09/30/18 Retail Sales Lead Relationship Specialty Start Date End Date Justus Mcdonald MD [address] [facility] [place] [address] PCP - General Family Medicine 09/30/18 Pearl Segundo MD [address] [place] [address] Oncology 01/29/23 Retail Sales Lead Relationship Specialty Start Date End Date Justus Mcodnald MD [address] [facility] [place] [address] PCP - General Family Medicine 09/30/18 Pearl Segundo MD [address] [place] [address] Oncology 01/29/23 Retail Sales Lead Relationship Specialty Start Date End Date Justus Mcdonald MD [address] [facility] [place] [address] PCP - General Family Medicine 09/30/18 Pearl Segundo MD [address] [place] [address] Oncology 01/29/23 Retail Sales Lead Relationship Specialty Start Date End Date Justus Mcdonald MD [address] [facility] [place] [address] PCP - General Family Medicine 09/30/18 Pearl Segundo MD [address] [place] [address] Oncology 01/29/23 Retail Sales Lead Relationship Specialty Start Date End Date Justus Mcdonald MD [address] [facility] [place] [address] PCP - General Family Medicine 09/30/18 Pearl Segundo MD [address] [place] [address] Oncology 01/29/23 Retail Sales Lead Relationship Specialty Start Date End Date Justus Mcdonald MD [address] [facility] [place] [address] PCP - General Family Medicine 09/30/18 Pearl Segundo MD [address] [place] [address] Oncology 01/29/23 Retail Sales Lead Relationship Specialty Start Date End Date Justus Mcdonald MD [address] [facility] [place] [address] PCP - General Family Medicine 09/30/18 Pearl Segundo MD [address] [place] [address] Oncology 01/29/23 Retail Sales Lead Relationship Specialty Start Date End Date Justus Mcdonald MD [address] [facility] [place] [address] PCP - General Family Medicine 09/30/18 Retail Sales Lead Relationship Specialty Start Date End Date Justus Mcdonald MD [address] [facility] [place] [address] PCP - General Family Medicine 09/30/18 Retail Sales Lead Relationship Specialty Start Date End Date Justus Mcdonald MD [address] [facility] [place] [address] PCP - General Family Medicine 09/30/18 Retail Sales Lead Relationship Specialty Start Date End Date Justus Mcdonald MD [address] [facility] [place] [address] PCP - General Family Medicine 09/30/18 Retail Sales Lead Relationship Specialty Start Date End Date Justus Mcdonald MD [address] [facility] [place] [address] PCP - General Family Medicine 09/30/18 Retail Sales Lead Relationship Specialty Start Date End Date Justus Mcdonald MD [address] [place] [address] PCP - General Family Medicine 09/30/18 Retail Sales Lead Relationship Specialty Start Date End Date Justus Mcdonald MD [address] [place] [address] PCP - General Family Medicine 09/30/18 Retail Sales Lead Relationship Specialty Start Date End Date Justus Mcdonald MD [address] [place] [address] PCP - General Family Medicine 09/30/18 Retail Sales Lead Relationship Specialty Start Date End Date Justus Mcdonald MD [address] [place] [address] PCP - General Family Medicine 09/30/18 Retail Sales Lead Relationship Specialty Start Date End Date Justus Mcdonald MD [address] [place] [address] PCP - General Family Medicine 09/30/18 Retail Sales Lead Relationship Specialty Start Date End Date Justus Mcdonald MD [address] [place] [address] PCP - General Family Medicine 09/30/18 Retail Sales Lead Relationship Specialty Start Date End Date Justus Mcdonald MD [address] [place] [address] PCP - General Family Medicine 09/30/18 Retail Sales Lead Relationship Specialty Start Date End Date Justus Mcdonald MD [address] [place], [place] [address]41 PCP - General Family Medicine 09/30/18 Retail Sales Lead Relationship Specialty Start Date End Date Justus Mcdonald MD [address] [place], [place] [address] PCP - General Family Medicine 09/30/18 Retail Sales Lead Relationship Specialty Start Date End Date Justus Mcdonald MD [address] [place], [place] [address]21 PCP - General Family Medicine 09/30/18 Pearl Segundo MD [address] [place], [place] [id number] Oncology 01/29/23 03/07/23 Retail Sales Lead Relationship Specialty Start Date End Date Justus Mcdonald MD [address] [place], [place] [address]151 PCP - General Family Medicine 09/30/18 Retail Sales Lead Relationship Specialty Start Date End Date Justus Mcdonald MD [address] [place], [place] [address] PCP - General Family Medicine 09/30/18 Retail Sales Lead Relationship Specialty Start Date End Date Justus Mcdonald MD [address] [place], [place] [address]2021 PCP - General Family Medicine 09/30/18 Retail Sales Lead Relationship Specialty Start Date End Date Justus Mcdonald MD [address] [place], [place] [address]221 PCP - General Family Medicine 09/30/18 Retail Sales Lead Relationship Specialty Start Date End Date Justus Mcdonald MD [address] [facility] [place], [place] [address] PCP - General Family Medicine 09/30/18 Retail Sales Lead Relationship Specialty Start Date End Date Justus Mcdonald MD [address] [facility] [place], [place] [address] PCP - General Family Medicine 09/30/18 Retail Sales Lead Relationship Specialty Start Date End Date Justus Mcdonald MD [address] [place] [address] PCP - General Family Medicine 09/30/18 Retail Sales Lead Relationship Specialty Start Date End Date Justus Mcdonald MD [address] [place] [address] PCP - General Family Medicine 09/30/18 Retail Sales Lead Relationship Specialty Start Date End Date Justus Mcdonald MD [address] [facility] [place] [address] PCP - General Family Medicine 09/30/18 Retail Sales Lead Relationship Specialty Start Date End Date Justus Mcdonald MD [address] [facility] [place] [address] PCP - General Family Medicine 09/30/18 Amber Lenz APRN.COIN ROLLING MACHINE OPERATOR [address] [place] [address] Diabetes Manager Family Medicine 10/19/24 [place] APRN.COIN ROLLING MACHINE OPERATOR [address] [facility] [place] [address] Diabetes Manager Family Medicine 10/19/24 Retail Sales Lead Relationship Specialty Start Date End Date Justus Mcdonald MD [address] [facility] [place] [address] PCP - General Family Medicine 09/30/18 Amber Lenz APRN.COIN ROLLING MACHINE OPERATOR [address] [place] [address] Diabetes Manager Family Medicine 10/19/24 [place] APRN.COIN ROLLING MACHINE OPERATOR [address] [facility] [place] [address] Diabetes Manager Family Medicine 10/19/24 Retail Sales Lead Relationship Specialty Start Date End Date Justus Mcdonald MD [address] [facility] [place] [address] PCP - General Family Medicine 09/30/18 Amber Lenz GLASS GRINDER.COIN ROLLING MACHINE OPERATOR [address] [place] [address] Diabetes Manager Family Medicine 10/19/24 [place] GLASS GRINDER.COIN ROLLING MACHINE OPERATOR [address] [facility] [place] [address] Diabetes Manager Family Medicine 10/19/24 Retail Sales Lead Relationship Specialty Start Date End Date Justus Mcdonald MD [address] [facility] [place] [address] PCP - General Family Medicine 09/30/18 Amber Lenz APRN.COIN ROLLING MACHINE OPERATOR [address] [place] [address] Diabetes Manager Family Medicine 10/19/24 [place] GLASS GRINDER.COIN ROLLING MACHINE OPERATOR [address] [facility] [place] [address] [facility] Team Status: Active Member Role Status Dates Dr. Justus Mcdonald MD Primary Care Provider Active Team Status: Inactive Member Role Status Dates Dr. Justus Mcdonald MD Primary Care Provider Active Start: March 29, 2025 End: March 29, 2025 Dr. Mango Leone MD Emergency Provider Active S tart: March 29, 2025 End: March 29, 2025 Retail Sales Lead Relationship Specialty Start Date End Date Justus Mcdonald MD [address] [facility] [place], [place] [address] PCP - General Family Medicine 09/30/18 Amber Lenz APRN.COIN ROLLING MACHINE OPERATOR [address] [place] [address] [facility] 10/19/24 [place] GLASS GRINDER.COIN ROLLING MACHINE OPERATOR [address] [facility] [place] [address] [facility] 10/19/24 Retail Sales Lead Relationship Specialty Start Date End Date Justus Mcdonald MD [address] [facility] [place], [place] [address] PCP - General Family Medicine 09/30/18 Amber Lenz GLASS GRINDER.COIN ROLLING MACHINE OPERATOR [address] [place] [address] [facility] 10/19/24 [place] APRN.COIN ROLLING MACHINE OPERATOR [address] [facility] [place] [address] [facility] 10/19/24 Retail Sales Lead Relationship Specialty Start Date End Date Justus Mcdonald MD [address] [place], [place] [address] PCP - General Family Medicine 09/30/18 Amber Lenz APRN.COIN ROLLING MACHINE OPERATOR [address] [place], [place] [address] Diabetes Manager Family [facility] 10/19/24 [place] APRN.COIN ROLLING MACHINE OPERATOR [address] [place], [place] [address] Diabetes Manager [facility] 10/19/24 Team Status: Active Member Role/Relationship Status [...] MDM 60-74 MINUTES Justus Mcdonald MD [address] [place] [address] Referral ID Status Reason Start Date Expiration Date V isits Requested Visits Authorized [id number] Closed PCP Requested Referral 05/31/2023 05/30/2024 1 [...] EVALUATION HIGH COMPLEX 45 MINS Amber Lenz, VALERI.COIN ROLLING MACHINE OPERATOR [address] [place] [address] [facility] [address] [place] [address] Referral ID Status Reason Start Date Expiration Date V isits Requested Visits Authorized [id number] Closed Auto-Generate d Referral 12/03/2022 02/08/2023 1 1 Reason Comments Results Reason Comments Non-Chemotherapy Treatment Specialty Diagnoses / Procedures Referred By Contac t Referred To Contact Diagnoses Iron deficiency anemia due to chronic blood loss Procedures IRON SUCROSE INJECTION PER 1 MG Pearl Segundo MD [address] [place] [address] [facility] [address] [place] [address] Referral ID Status Reason Start Date Expiration Date V isits Requested Visits Authorized [id number] Authorized 01/29/2023 04/29/2023 5 5 Reason Onset [...] To Contact Diagnoses FAP Procedures FAP Self [facility] [place] [address] Referral ID Status Reason Start Date Expiration Date Visits Requested Visits Authorized [id number] Authorized Patient Cleared - Qualified [id number]/[id number]/FA Referred [...] MEDICALLY NECESSARY SERVICES Justus Mcdonald MD [address] [place] [address] Phone: tel: fax: [facility] [place] [address] Referral ID Status Reason Start Date Expiration Date Visits Requested Visits Authorized [id number] Authorized Patient Cleared - Qualified 100% FAS [...] [facility]. provides no warranty or guarantee of the accuracy or completeness of information in this document.
[2025-07-17 23:48] VITALS: BP 122/93; PULSE 77; RESP 18; TEMP 36.8; O2SAT 99
[2025-07-17 23:57] VITALS: BMI 26.4
[2025-07-18] VITALS (18 sets, daily range): BP systolic 99–130; BP diastolic 63–86; PULSE 59–87; RESP 16–18; TEMP 35.9–37.1; O2SAT 92–100; BMI 26.4
[2025-07-18] MEDS: 0.9% Normal Saline (1000mL) 1,000 ML 100 ML IV (00:35)
[2025-07-18] MEDS: Pantoprazole Sodium 40 MG in 0.9% Normal Saline (100mL MB+) 100 ML 330 MG IV ×3 (00:35→21:09)
[2025-07-18] MEDS: 0.9% Saline Lock 10 ML Syringe IV ×3 (00:44→22:34)
[2025-07-18 06:41] LABS: Hematocrit 38.9 % (37-47); Hemoglobin 13.0 g/dL (12.0-15.0); Immature Granulocytes Count 0.020 X10^3/uL (0.0-0.0); Mean Corp Hgb Conc 33.4 g/dL (32-36); Mean Corpuscular Volume 87.8 fL (81-99); Mean Platelet Vol. 11.0 fl (6.2-12.0); NRBC Flagged by Analyzer 0 % (0-5); Platelet Count 187 K/mm3 (150-450); RBC Distribution Width CV 13.0 % (11.6-14.6); RBC Distribution Width SD 41.8 fl (35.1-43.9); Red Blood Count 4.43 M/mm3 (4.2-5.4); White Blood Count 5.4 K/mm3 (4.4-11.0)
[2025-07-18 07:01] LABS: AST(SGOT) 18 U/L (<=31); Alanine Aminotransfer ALT/SGPT 13 U/L (<=34); Albumin, Serum 3.8 g/dL (3.5-5.0); Alkaline Phosphatase 54 U/L (35-104); Anion Gap 10 (5-15); BUN 13 mg/dL (4-19); BUN/Creat Ratio 14.8 RATIO (10-20); Calcium,Total 9.0 mg/dL (7.6-11.0); Carbon Dioxide 18.8 mmol/L (21.0-32.0); Chloride 111 mmol/L (98-108); Estimated Creatinine Clearance 72.50 ml/min (50-250); Globulin 2.2 g/dL (2.2-4.2); Glucose 103 mg/dL (70-99); Potassium 3.8 mmol/L (3.3-5.1)
--- NOTE | 2025-07-18 08:01 | PN.HOSP_ITS ---
Reason for Visit Chief Complaint: Abd pain, N, vertigo, headache. Subjective Subjective Patient is a 54-year-old presented with abdominal pain. She also did experience intermittent loss of vision as well as dizziness with with changes in position. Initial imaging studies with CT of the abdomen demonstrated findings suspicious for mild cholecystitis. CT of the head obtained came back unremarkable. Admitted to a monitored bed for further management Objective Data Objective Data Vital Signs: Vital Signs Temp Pulse Resp BP Pulse Ox O2 Del Method 98.0 F 64 16 116/66 97 Room Air 07/18/25 05:00 07/18/25 05:00 07/18/25 05:00 07/18/25 05:00 07/18/25 05:00 07/18/25 07:29 Oxygen Delivery Method Room Air Weight: 69.7 kg Body Mass Index (BMI) 26.4 Intake & Output: Intake and Output for Last 24 Hours 07/16/25 07/17/25 07/18/25 23:59 23:59 23:59 Intake Total 655 / 655 Balance 655 / 655 Lab / Micro Data 07/18/25 06:00 07/18/25 06:00 Labs: Laboratory Results - last 24 hr 07/17/25 21:03: WBC 9.4, RBC 5.10, Hgb 15.1 H, Hct 44.0, MCV 86.3, MCH 29.6, MCHC 34.3, RDW Std Deviation 40.4, RDW Coeff of Marcie 12.8, Plt Count 261, MPV 10.5, Immature Gran % (Auto) 0.200, Neut % (Auto) 58.4, Lymph % (Auto) 32.7, [place] % (Auto) 6.9, Eos % (Auto) 1.5, Baso % (Auto) 0.3, Absolute Neuts (auto) 5.5, Absolute Lymphs (auto) 3.07, Nucleated RBC % 0, Sodium 140, Potassium 3.5, Chloride 106, Carbon Dioxide 20.2 L, Anion Gap 13, BUN 15, Creatinine 1.04, Estim Creat Clear Calc 53.40, Est GFR (MDRD) Non-Af 64, BUN/Creatinine Ratio 13.9, Glucose 147 H, Calcium 10.2, Total Bilirubin 0.30, AST 24, ALT 17, Alkaline Phosphatase 68, Total Protein 7.3, Albumin 4.6, Globulin 2.7, Albumin/Globulin Ratio 1.7, Lipase 44, Ethyl Alcohol < 10.1 07/17/25 22:28: Urine Color Yellow, Urine Clarity Clear, Urine pH 6.0, Ur Specific [place] 1.010, Urine Protein 30 H, Urine Glucose (UA) Normal, Urine Ketones Negative, Urine Occult Blood Negative, Urine Nitrite Negative, Urine Bilirubin Negative, Urine Urobilinogen Normal, Ur Leukocyte Esterase Negative, Urine RBC 0-5 SEEN, Urine WBC 0-5 SEEN, Ur Squamous Epith Cells 0 SEEN, Urine Bacteria 0 SEEN, Urine Mucus 0 SEEN 07/18/25 06:00: WBC 5.4, RBC 4.43, Hgb 13.0, Hct 38.9, MCV 87.8, MCH 29.3, MCHC 33.4, RDW Std Deviation 41.8, RDW Coeff of Marcie 13.0, Plt Count 187, MPV 11.0, Immature Gran % (Auto) 0.400, Neut % (Auto) 53.8, Lymph % (Auto) 32.9, Harvey % (Auto) 10.8 H, Eos % (Auto) 1.7, Baso % (Auto) 0.4, Absolute Neuts (auto) 2.9, Absolute Lymphs (auto) 1.79, Nucleated RBC % 0, Sodium 140, Potassium 3.8, C hloride 111 H, Carbon Dioxide 18.8 L, Anion Gap 10, BUN 13, Creatinine 0.85, Estim Creat Clear Calc 72.50, Est GFR (MDRD) Non-Af 82, BUN/Creatinine Ratio 14.8, Glucose 103 H, Calcium 9.0, Total Bilirubin 0.33, AST 18, ALT 13, Alkaline Phosphatase 54, Total Protein 6.0, Albumin 3.8, Globulin 2.2, Albumin/Globulin Ratio 1.8 Radiography Diagnostic Testing: Radiology Impression Abdomen/Pelvis CT 07/17/25 20:45 IMPRESSION: Appearance of the gallbladder is suspicious for mild cholecystitis. Findings and recommendations discussed above. - Hepatic lesions are too small to further characterize but appears similar to the prior exam. Clinical correlation is advised as discussed above. - Other incidental findings discussed above. Reading Location: [id number] Brain CT 09/06/25 20:45 IMPRESSION: 1. No acute intracranial abnormality. 2. 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 Reading Location: [facility] Physical Exam Narrative GENERAL: cooperative HEENT: Atraumatic; normocephalic EYES; Anicteric, Normal Conjunctiva NECK; supple, normal thyroid, RESPIRATORY: Diminished to auscultation CARDIOVASCULAR: Regular S1 S2, GI: soft, normoactive bowel sounds, RUQ tenderness : No Renal angle tenderness; EXTREMITIES: No edema, no clubbing, MUSCULOSKELETAL: no muscle wasting NEURO: Awake; no lateralizing signs. SKIN: No Rash PSYCH; Flat affect Assessment & Plan Assessment/Plan (1) Benign paroxysmal positional vertigo: (2) Abdominal pain: PLAN: Plan Patient is a 54-year-old presented with abdominal pain. She also did experience intermittent loss of vision as well as dizziness with with changes in position. Initial imaging studies with CT of the abdomen demonstrated findings suspicious for mild cholecystitis. CT of the head obtained came back unremarkable. Admitted to a monitored bed for further management 1. Abdominal pain ? CT of the abdomen was questionable for acute cholecystitis. Patient has been admitted to a monitored bed treatment initiated with bowel rest PPI pain meds antiemetics with ultrasound of the gallbladder ordered. Consultation was placed to general surgery 2. Suspected BPPV. Admitted to a monitored bed for symptom management 3. Acute migrainous attack ?Patient is on Topamax discontinue added Phenergan in addition to ketorolac 4. GERD On PPI 5. Dyslipidemia ? Patient is on rosuvastatin at home, with plans to resume on discharge 6. Depression with anxiety ? Patient is on SSRI continue 7. DVT prophylaxis ? On enoxaparin Time spent in the patient's overall evaluation,decision-making process, review of diagnostic data, adjustment of management, discussion with other providers, nursing nursing and ancillary staff involved in patient's care documentation, 36 Minutes Charges/Coding Visit Charges Inpatient E&M: 36114 Subs Hosp L2
--- NOTE | 2025-07-18 10:11 | RAD_ITS ---
PROCEDURE: CHOLANGIOGRAM/ O R,INITIAL 07/18/2025 REASON FOR EXAM: ABD PAIN TECHNIQUE: Procedure Code: RADCHO Modality: DX Procedure: CHOLANGIOGRAM/ O R,INITIAL FINDINGS: Intraoperative fluoroscopy was performed. 10.3 seconds of fluoroscopic time. 4.57 mGy. See procedure report for full details. RAD/Cholangiogram/ O R,Initial IMPRESSION: As above. Reading Location: [id number]
--- NOTE | 2025-07-18 10:11 | EX.PCM.CON.S ---
Assessment & Plan Assessment/Plan (1) Acute cholecystitis: PLAN: Plan The patient is a 54-year-old female admitted to the emergency department last evening with vertigo/migraine headache type symptoms along with right upper quadrant pain. Head CT was unremarkable however CT of the abdomen pelvis revealed mild early cholecystitis without cholelithiasis. Her symptoms do seem consistent with biliary colic. Her symptoms are much improved this morning however she is still having some right upper quadrant pain/discomfort. I expressed that I do feel that her gallbladder was likely the cause for her symptoms. We discussed her options. Those options being cholecystectomy during this admission versus discharge home and cholecystectomy as an outpatient. She states that she never wants to go through the pain that she experienced yesterday, and has elected to proceed with cholecystectomy today. This will be scheduled for later this morning or early afternoon once an OR becomes available. She will remain n.p.o. for now. She would likely require at least subcu heparin postoperative as result of her factor V. HPI Consult Data Date of Consult: 07/18/25 HPI Narrative Reason for Consultation: Possible cholecystitis HPI Narrative: ESTUARDO VILLA, is a 54 F who presented to the [facility] emergency department last evening with complaints of dizziness as well as abdominal pain. Her past medical history is pertinent for chronic migraine headaches, factor V heterozygous mutation, hyperlipidemia, anxiety/depression, GERD, chronic kidney disease. The patient states that around 5 AM yesterday morning she woke up with dizziness as well as some visual impairment that was also associated with nausea. She did not have any emesis at that time. She had no abdominal pain at that time. She stated that the visual disturbances and dizziness seem to resolve in the morning however this seemed to have returned in the afternoon. Around 3 PM she also developed some epigastric and right upper quadrant pain. She stated that the right upper quadrant pain was at least moderate in intensity but her headache is what ultimately brought her to the emergency department. She was seen evaluated by the ER staff. She underwent laboratory testing that showed a normal white blood cell count as well as normal LFTs. She underwent a head CT which showed no intracranial abnormalities. CT scan of the abdomen was also performed and that showed findings of possible mild gallbladder wall thickening and trace pericholecystic fluid. This was read as questionable early cholecystitis. I was contacted by ER staff. We mutually agreed the patient should probably be admitted for observation and management of her vertigo/migraine symptoms, and further evaluation can be performed of her gallbladder. Patient underwent ultrasound of the right upper quadrant this morning that showed mild gallbladder wall thickening and mild Fernanda-cholecystic edema. Currently patient states she is still having some mild soreness and discomfort in the right upper quadrant but nowhere near as intense as she experienced last evening. She states that her headache, although still present, is much improved. A general surgery consult was obtained for further evaluation and management of her cholecystitis [facility] Medical History (Updated 07/18/25 @ 10:[address] Kenyon Stern MD) Acute cholecystitis Chronic abdominal pain Chronic migraine GERD (gastroesophageal reflux disease) CKD (chronic kidney disease), stage II Anxiety and depression Factor 5 Leiden mutation, heterozygous Hyperlipidemia Home Medications ?Medication ?Instructions ?Recorded ?Last Taken ?Type pantoprazole 40 mg tablet,delayed 40 mg PO DAILY #30 tabs 10/10/16 07/17/25 Rx release ondansetron 4 mg disintegrating 4 mg PO Q8H PRN nausea and 05/15/21 07/17/25 Rx tablet vomiting #10 tabs ondansetron 4 mg disintegrating 4 mg PO Q6H PRN nausea and 03/29/25 Unknown Rx tablet vomiting #7 tabs fluoxetine 40 mg capsule 40 mg PO DAILY 07/07/25 07/17/25 History hydroxyzine HCl 10 mg tablet 10 - 20 mg PO TID PRN PRN anxiety 07/07/25 Unknown History rimegepant 75 mg disintegrating 75 mg PO QODAY 07/07/25 Unknown History tablet (Nurtec ODT) rosuvastatin 5 mg tablet 5 mg PO DAILY 07/07/25 07/17/25 History topiramate 100 mg tablet 100 mg PO BID 07/07/25 Unknown History Allergy/AdvReac Type Severity Reaction Status Date / Time latex Allergy Rash Verified 07/17/25 20:35 Penicillins Allergy Other Verified 07/17/25 20:35 acetaminophen (From Tylenol) AdvReac Nausea Verified 07/17/25 20:35 naproxen (From Aleve) AdvReac Nausea/Vom/ Verified 07/17/25 20:35 Diarrhea Family History Mother Diabetes Heart disease Grandmother Cervical cancer Father , from [place] when patient was 8 years old. CAD (coronary artery disease) Heart disease Hypertension Myocardial infarction Surgical History H/O neck surgery S/P S/P hysterectomy Social History household members: none Smoking Status: Never smoker alcohol intake: current alcohol intake frequency: holidays/special occasions only substance use type: does not use caffeine: Yes what type of physical activity do you participate in: none seatbelt use: sometimes do you feel safe at home: Yes 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 [employer] Physical Exam Narrative She is alert and oriented x 3. She is in no acute distress. Head is normocephalic and atraumatic. Pupils are equal round and reactive to light. Abdomen is soft and nondistended. She does have some mild discomfort with right upper quadrant palpation. No rebound or guarding Medical Records Data Attestation: I reviewed the patient's medical records Lab / Micro Data Attestation: I reviewed the patient's lab results. 07/18/25 06:00 07/18/25 06:00 Labs: Laboratory Results - last 24 hr 07/17/25 21:03: WBC 9.4, RBC 5.10, Hgb 15.1 H, Hct 44.0, MCV 86.3, MCH 29.6, MCHC 34.3, RDW Std Deviation 40.4, RDW Coeff of Marcie 12.8, Plt Count 261, MPV 10.5, Immature Gran % (Auto) 0.200, Neut % (Auto) 58.4, Lymph % (Auto) 32.7, [place] % (Auto) 6.9, Eos % (Auto) 1.5, Baso % (Auto) 0.3, Absolute Neuts (auto) 5.5, Absolute Lymphs (auto) 3.07, Nucleated RBC % 0, Sodium 140, Potassium 3.5, Chloride 106, Carbon Dioxide 20.2 L, Anion Gap 13, BUN 15, Creatinine 1.04, Estim Creat Clear Calc 53.40, Est GFR (MDRD) Non-Af 64, BUN/Creatinine Ratio 13.9, Glucose 147 H, Calcium 10.2, Total Bilirubin 0.30, AST 24, ALT 17, Alkaline Phosphatase 68, Total Protein 7.3, Albumin 4.6, Globulin 2.7, Albumin/Globulin Ratio 1.7, Lipase 44, Ethyl Alcohol < 10.1 07/17/25 22:28: Urine Color Yellow, Urine Clarity Clear, Urine pH 6.0, Ur Specific [place] 1.010, Urine Protein 30 H, Urine Glucose (UA) Normal, Urine Ketones Negative, Urine Occult Blood Negative, Urine Nitrite Negative, Urine Bilirubin Negative, Urine Urobilinogen Normal, Ur Leukocyte Esterase Negative, Urine RBC 0-5 SEEN, Urine WBC 0-5 SEEN, Ur Squamous Epith Cells 0 SEEN, Urine Bacteria 0 SEEN, Urine Mucus 0 SEEN 07/18/25 06:00: WBC 5.4, RBC 4.43, Hgb 13.0, Hct 38.9, MCV 87.8, MCH 29.3, MCHC 33.4, RDW Std Deviation 41.8, RDW Coeff of Marcie 13.0, Plt Count 187, MPV 11.0, Immature Gran % (Auto) 0.400, Neut % (Auto) 53.8, Lymph % (Auto) 32.9, [place] % (Auto) 10.8 H, Eos % (Auto) 1.7, Baso % (Auto) 0.4, Absolute Neuts (auto) 2.9, Absolute Lymphs (auto) 1.79, Nucleated RBC % 0, Sodium 140, Potassium 3.8, Chloride 111 H, Carbon Dioxide 18.8 L, Anion Gap 10, BUN 13, Creatinine 0.85, Estim Creat Clear Calc 72.50, Est GFR (MDRD) Non-Af 82, BUN/Creatinine Ratio 14.8, Glucose 103 H, Calcium 9.0, Total Bilirubin 0.33, AST 18, ALT 13, Alkaline Phosphatase 54, Total Protein 6.0, Albumin 3.8, Globulin 2.2, Albumin/Globulin Ratio 1.8 Imaging Radiology Impression Abdomen/Pelvis CT 07/17/25 20:45 IMPRESSION: Appearance of the gallbladder is suspicious for mild cholecystitis. Findings and recommendations discussed above. - Hepatic lesions are too small to further characterize but appears similar to the prior exam. Clinical correlation is advised as discussed above. - Other incidental findings discussed above. Reading Location: [facility] Brain CT 07/17/25 20:45 IMPRESSION: 1. No acute intracranial abnormality. 2. 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 Reading Location: [facility] Gallbladder Ultrasound 07/18/25 23:13 IMPRESSION: Indeterminate appearance of the gallbladder with gallbladder wall thickening and slight pericholecystic fluid. No gallstones evident. Possibly representing early cholecystitis. No evidence of ascites on recent CT and therefore gallbladder edema from ascites is considered unlikely. Reading Location: [id number] Charges/Coding Visit Charges Inpatient E&M: 81523 Init Hosp L3
--- NOTE | 2025-07-18 10:24 | EKG12_ITS ---
Test Reason : PRE OP Blood Pressure : */* mmHG Vent. Rate : 65 BPM Atrial Rate : 65 BPM P-R Int : 184 ms QRS Dur : 80 ms QT Int : 382 ms P-R-T Axes : -1 10 226 degrees QTcB Int : 397 ms Normal sinus rhythm Nonspecific T wave abnormality Abnormal ECG When compared with ECG of 15-May-2021 20:37, Nonspecific T wave abnormality now evident in Inferior leads Nonspecific T wave abnormality now evident in Anterolateral leads QT has shortened Confirmed by Homero De La Cruz ([id number]), newspaper editor managing TAN SANCHEZ ([id number]) on 07/19/2025 10:05:03 AM Referred By: TARI Confirmed By: Homero De La Cruz
[2025-07-18 10:57] LABS: Prothrombin Time (Protime)PT. 14.1 SECONDS (11.7-14.9)
[2025-07-18 10:58] LABS: Partial Thromboplast Time 24.3 Seconds (24.1-36.2)
--- NOTE | 2025-07-18 11:28 | PRE.ANES_ITS ---
ASA Classification* ASA Classification ASA Classification: 2 Assessment & Plan Anesthesia* Anesthesia Assessment Anesthesia Assessment: Discussed sedation and/or anesthesia options, risks, benefits, and alternatives with patient/parents/legal guardian/POA. Questions invited. The patient/parents/legal guardian/POA seems to understand and agrees to proceed with anesthesia plan. Reviewed the physical assessment, medical history, allergy history and patient home medications list prior to surgery/procedure/anesthetic and documented any changes. Performed airway and anesthesia risk assessments. Anesthesia Type Anesthesia Type: General Anesthesia Focused Assessment* Temperature: 98.8 F Pulse Rate: 66 Blood Pressure: 112/63 Respiratory Rate: 18 Pulse Ox: 98 Airway Assessment Mouth opens: >3 cm Mallampati Score: II Labs Anesthesia Preop lab: CBC WBC 5.4 K/mm3 (4.4-11.0) 07/18/25 06:00 07/18/25 RBC 4.43 M/mm3 (4.2-5.4) 07/18/25 06:00 07/18/25 Hgb 13.0 g/dL (12.0-15.0) 07/18/25 06:00 07/18/25 Hct 38.9 % (37-47) 07/18/25 06:00 07/18/25 Plt Count 187 K/mm3 (150-450) 07/18/25 06:00 07/18/25 CHEMISTRY Potassium 3.8 mmol/L (3.3-5.1) 07/18/25 06:00 07/18/25 Sodium 140 mmol/L (133-145) 07/18/25 06:00 07/18/25 BUN 13 mg/dL (4-19) 07/18/25 06:00 07/18/25 Creatinine 0.85 mg/dL (0.70-1.20) 07/18/25 06:00 07/18/25 Glucose 103 mg/dL (70-99) H 07/18/25 06:00 07/18/25 COAG PT 14.1 SECONDS (11.7-14.9) 07/18/25 10:36 Pre-Assessment Diagnosis/Proposed Procedure Planned Operative Procedure(s): laproscopic lori Anesthesia History Anesthesia History - patient care assistant: Anesthesia History - patient care assistant Hx Hospitalization No 11/09/20 11:54 Any Problems With Anesthesia No 07/18/25 10:36 Cholinesterase deficiency No 07/18/25 10:36 You/Your Family Experience No 07/18/25 10:36 fever (hyperthermia) with Relationship Recent Exposure to Contagious No 07/18/25 10:36 Disease Does patient have nerve No 07/18/25 10:36 stimulator Patient instructed to have No 07/18/25 10:36 device shut off --Does patient have Pacemaker No 07/18/25 10:36 or ICD? When Was Last Pacemaker Check QUESTION #4 FULL TEXT: You/Your Family Experience fever (hyperthermia) with Anesthesia Last Oral Intake Last Oral intake: Last Oral Intake NPO since 00:00 07/18/25 10:36 Meds taken in AM with sips of Yes 07/18/25 10:36 water? Meds patient instructed to prozac 07/18/25 10:36 take am of surgery zetia topamax PONV PONV - patient care assistant: PONV - patient care assistant Female HX of Motion Sickness HX of N/V After Surgery Non-Smoker Duration of Surgery greater than 60 minutes Number of Risk Factors PONV Score Height & Weight Height & Weight: Anesthesia: Height & Weight Height 5 ft 4 in 07/17/25 23:57 Weight: 69.7 kg 07/18/25 05:54 Body Mass Index (BMI) 26.4 07/18/25 10:36 Respiratory Assessment Respiratory Assessment - patient care assistant: Respiratory Tract Infection Hx - patient care assistant Hx Respiratory Tract Infection No 07/18/25 10:36 STOP Sleep Apnea STOP Sleep Apnea - patient care assistant: STOP Sleep Apnea - patient care assistant Hx Hypertension No 07/17/25 23:57 Hx Sleep Apnea No 07/17/25 23:57 CPAP BIPAP Do you snore loudly (louder No 07/17/25 23:57 than talking or can be heard Do you often feel tired/ Yes 07/17/25 23:57 fatigued/ sleepy during daytime? Has anyone observed you stop No 07/17/25 23:57 breathing during sleep? STOP Results Negative 07/17/25 23:57 QUESTION #5 FULL TEXT : Do you snore loudly (louder than talking or can be heard through closed doors)? 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 Specify any problems Hx of Preganancy in last 3 N/A 07/17/25 23:57 Months Nurse Filling Out Transfusion [id number] 07/17/25 23:57 & Questions: Date: 07/18/25 07/17/25 23:57 Time: 00:12 07/17/25 23:57 Patient unable to answer at this time (ie. confused, unrespo /Reproduction History /Reproductive History - patient care assistant: /Reproductive Hx- patient care assistant Hx Now No 07/18/25 10:36 Gestational Age (in weeks): EDC: Hx Hx Para Hx Section SAB No 07/18/25 10:36 Active Medications Active Medications: Current Medications Generic Name Dose Route Start Last Admin Trade Name Freq PRN Reason Stop Dose Admin Acetaminophen 650 mg 07/18/25 00:02 Acetaminophen 325 Mg Tablet PO Q4H PRN PRN Fever, pain 1-10/10 Al Hydroxide/Mg Hydroxide 30 ml 07/18/25 00:02 Mag Hydrox/Al Hydrox/Simeth 30 Ml Udc PO Q6H PRN PRN Gastric Burning Albuterol Sulfate 2.5 mg 07/18/25 00:02 Albuterol 2.5 Mg/3 Ml Vial.Neb. INHALATION Q2H PRN PRN Dyspnea, wheezing Atorvastatin Calcium 10 mg 07/18/25 22:00 Atorvastatin Calcium 10 Mg Tablet PO QHS SURESH Dicyclomine HCl 10 mg 07/18/25 00:02 Dicyclomine 10 Mg Capsule PO BID PRN PRN abdominal pain Ezetimibe 10 mg 07/18/25 10:00 07/18/25 09:54 Ezetimibe 10 Mg Tablet PO 10 mg DAILY SURESH Administration Enoxaparin Sodium 40 mg 07/18/25 10:00 07/18/25 09:56 Enoxaparin 40 Mg/0.4 Ml Syringe SC Not Given DAILY SURESH Fluoxetine HCl 40 mg 07/18/25 10:00 07/18/25 09:54 Fluoxetine Hcl 40 Mg Capsule PO 40 mg DAILY SURESH Administration Guaifenesin 20 ml 07/18/25 00:02 Guaifenesin 10 Ml Udc (200mg/10ml) PO Q4H PRN PRN COUGH Hydralazine HCl 10 mg 07/18/25 00:02 Hydralazine 20 Mg/Ml Vial IV Q4H PRN PRN SBP > 160 Protocol Hydroxyzine HCl 20 mg 07/18/25 00:02 Hydroxyzine 10 Mg Tablet PO TID PRN PRN anxiety Pantoprazole Sodium 40 mg/ 100 mls @ 330 mls/hr 07/18/25 00:02 07/18/25 10:04 Sodium Chloride IV Infused Q12 SURESH Infusion Sodium Chloride 250 mls @ 15 mls/hr 07/18/25 00:15 IV .[id number] PRN Saline Flush Sodium Chloride 250 mls @ 15 mls/hr 07/18/25 00:15 IV .[id number] PRN Additional IVPB Infusion Ketorolac Tromethamine 15 mg 07/18/25 00:02 07/18/25 05:08 Ketorolac 15 Mg/Ml Vial IV 07/23/25 00:02 15 mg Q6H PRN PRN Administration Pain Score 1-10 Meclizine HCl 25 mg 07/18/25 00:02 Meclizine Hcl 25 Mg Tablet PO TID PRN PRN VERTIGO Melatonin 3 mg 07/18/25 00:02 Melatonin 3 Mg Tablet PO QHS PRN PRN INSOMNIA Ondansetron HCl 4 mg 07/18/25 00:02 Ondansetron 4 Mg/2 Ml Vial IV Q8H PRN PRN NAUSEA/VOMITING Oxycodone HCl 5 mg 07/18/25 00:02 Oxycodone 5 Mg Tablet PO Q4H PRN PRN Pain Score 4-10 Senna/Docusate Sodium 2 tablet 07/18/25 00:02 Senna/Docusate Sodium 1 Tablet PO BID PRN PRN Constipation Sodium Chloride 10 - 40 ml 07/18/25 00:15 07/18/25 10:13 0.9% Saline Lock 10 Ml Syringe IV 10 ml UD PRN Administration SALINE FLUSH Topiramate 100 mg 07/18/25 10:00 07/18/25 09:54 Topiramate 100 Mg Tablet PO 100 mg BID SURESH Administration PFSH Medical History Acute cholecystitis Chronic abdominal pain Chronic migraine GERD (gastroesophageal reflux disease) CKD (chronic kidney disease), stage II Anxiety and depression Factor 5 Leiden mutation, heterozygous Hyperlipidemia Home Medications ?Medication ?Instructions ?Recorded ?Last Taken ?Type pantoprazole 40 mg tablet,delayed 40 mg PO DAILY #30 t abs 10/10/16 07/17/25 Rx release ondansetron 4 mg disintegrating 4 mg PO Q8H PRN nausea and 05/15/21 07/17/25 Rx tablet vomiting #10 tabs ondansetron 4 mg disintegrating 4 mg PO Q6H PRN nausea and 03/29/25 Unknown Rx tablet vomiting #7 tabs fluoxetine 40 mg capsule 40 mg PO DAILY 07/07/25 09/0 05/05 History hydroxyzine HCl 10 mg tablet 10 - 20 mg PO TID PRN PRN anxiety 07/07/25 Unknown History rimegepant 75 mg disintegrating 75 mg PO QODAY 5 Unknown History tablet (Nurtec ODT) rosuvastatin 5 mg tablet 5 mg PO DAILY 07/07/2507/17 History topiramate 100 mg tablet 100 mg PO BID 07/07/25 Unkno wn History Allergy/AdvReac Type Severity Reaction Status Date / Time latex Allergy Rash Verified 07/17/25 20:35 Penicillins Allergy Other Verified 07/17/25 20:35 acetaminophen (From Tylenol) AdvReac Nausea Verified 07/17/25 20:35 naproxen (From Aleve) AdvReac Nausea/Vom/ Verified 07/17/25 20:35 Diarrhea Family History Mother Diabetes Heart disease Grandmother Cervical cancer Father , from [place] when patient was 8 years old. CAD (coronary artery disease) Heart disease Hypertension Myocardial infarction Surgical History H/O neck surgery S/P S/P hysterectomy Social History household members: none Smoking Status: Never smoker alcohol intake: current alcohol intake frequency: holidays/special occasions only substance use type: does not use caffeine: Yes what type of physical activity do you participate in: none seatbelt use: sometimes do you feel safe at home: Yes 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 [employer] Review of Systems (Anesthesia) ROS Narrative System reviewed and no additional complaints, except as documented.
[2025-07-18] MEDS: Midazolam 2 MG/2 ML Syringe IV (11:46)
[2025-07-18] MEDS: Lidocaine 1% (5 ml sdv) 5 ML Vial 4 ML IV (11:48)
[2025-07-18] MEDS: fentaNYL 100 MCG/2 ML Ampul IV (11:48)
[2025-07-18] MEDS: Lactated Ringers 1,000 ML 15 ML IV (11:48)
[2025-07-18] MEDS: LACTATED RINGERS IV (11:50)
--- NOTE | 2025-07-18 12:05 | GALL_PTH ---
PATIENT: ESTUARDO VILLA LOC: [facility] U#:[id number] AGE/SX: 54/F ROOM: [facility] RE07/17/[address]: Dr. Basil Aleman DO : 1970 BED: 1 DIS: 07/20/2025 SPEC #: [id number] RECD: 07/19/25 07:24 STATUS: RASHEED RERyanne #: [id number] AUNG: 07/18/25 12:[address]: Kenyon Stern DEPT: SURGICAL PATHOLOGY RECD BY: Avinash Garcia ENTERED: 07/19/25 10:26 SP TYPE: GALLBLADDE OTHR DR: MD Dr. Mane Acosta MD Dr. Eric Jopperi, DO Dr. William Lago, MD Tissues: A - Gallbladder, NOS Procedures: Surgery Specimen Level III Comments: @ Ordering doctor for SUIII edited from to @ by ISH at 07/19/25 1026 @ Submitting doctor edited from to @ by ISH at 07/19/25 1026 HEADER OPERATION: Laparoscopic cholecystectomy PRE-OP DIAGNOSIS: Abdominal pain TISSUE SUBMITTED: A- Gallbladder MICROSCOPIC DIAGNOSIS A. Gallbladder, laparoscopic cholecystectomy: - Acute on chronic cholecystitis, adenomyomatous hyperplasia. - Benign pericystic lymph node x1. MICROSCOPIC DESCRIPTION Slides are reviewed. GROSS DESCRIPTION A. Received in formalin labeled with the patient's name and date of . Designated as gallbladder is a 7.8 x 3.3 x 2.8 cm pink-purple to green, intact gallbladder with attached patent cystic duct (inked black, shaved). A lymph node is present. Opening reveals green tenacious bile, devoid of choleliths. The mucosa is green and granular with a maximum wall thickness of 0.4 cm. Cholesterolosis is not present. [employer] Business Analyst sections are submitted in 1 cassette. MS 07/19/2025 CPT:30028
[2025-07-18] MEDS: Bupiv/Epi 0.25% 30 ML Vial (12:42)
--- NOTE | 2025-07-18 13:08 | PCM.OPRPT ---
Problems Associated Problem List Diagnoses (1) Acute cholecystitis: Procedures Digestive 40xxx-49xxx: 09797 Laparo cholecystectomy/graph Operative Report (Standard) Operative Information Date of Procedure: 07/18/25 Pre-Operative Diagnosis: Acute acalculous cholecystitis Post-Operative Diagnosis: Acute acalculous cholecystitis Surgery/Procedure Performed: Laparoscopic cholecystectomy with intraoperative cholangiograms nuclear control operator: Yes Sheetrock Applicator: Raven Montalvo Tasks completed by certified teacher assistant: Closing, Trocar and Retracting Additional gallery assistant?: No Type of Anesthesia: General and Local RN Documented Start/Stop Times: Operation Date: 07/18/25 12:05 Case Time Anesthesia Start 07/18/25 11:47 Into Room 07/18/25 11:47 Procedure Start 07/18/25 12:19 Procedure End 07/18/25 13:14 Anesthesia End 07/18/25 13:18 Out of Room 07/18/25 13:18 Procedure Start Time: 12:19 Procedure Stop Time: 13:14 Select all DRAINS/GRAFTS/IMPLANTS that apply: None Special Medications: 900 mg clindamycin Estimated Blood Loss: Minimal Specimen collected: Yes Description of specimen(s) removed: Gallbladder Description of surgery: The patient is a 54-year-old female who was admitted through the emergency department last evening with vertigo symptoms along with right upper quadrant pain. Workup of the abdominal pain revealed findings suggestive of early/mild cholecystitis without cholelithiasis. She was subsidy admitted. Right upper quadrant ultrasound was performed this morning and also confirmed acute cholecystitis. I offered her a laparoscopic cholecystectomy as treatment. We discussed the details of the planned procedure including the risks benefits and alternatives. She wished to proceed. She was brought to the operative room today following informed consent. Antibiotics were given and a timeout was performed. She was placed supine on the operative table with arms outstretched and arm boards. A general endotracheal anesthesia was induced. Once adequately sedated the abdomen was then prepped and draped in the usual sterile manner. A 5 mm incision was made just below the umbilicus which a 5 mm trocar was placed optically. This was placed without incident. Once in place the abdomen was then fully insufflated with CO2 gas. 5 mm 0 degree scope was inserted. There were no signs of bowel or vascular injury. Next two 5 mm trocars were placed under direct visualization in the right upper quadrant. A 10 mm trocar was then placed under direct visualization in the epigastric region. The patient was then positioned with some head up and rolled to the left to improve visualization of the gallbladder. The right upper quadrant was then visualized. The gallbladder was identified. The gallbladder was then reflected in a cephalad direction. There was adherent omentum to the undersurface of the gallbladder. This was carefully peeled downward with a combination of electrocautery and a [place] dissector. Once this was pulled down, the infundibulum was dissected. The cystic duct and cystic artery were clearly identified. The peritoneum on either side of the gallbladder was then incised using electrocautery and a J-hook. This improved mobility of the infundibulum. The cystic duct and cystic artery were both dissected out circumferentially. The lower aspect of the gallbladder was dissected off of the cystic plate thus allowing establishment of a critical view of safety in which 2 and only 2 structures were going to and from the gallbladder. There was being the cystic duct and cystic artery. The cystic duct was then clipped on the gallbladder side using a 10 mm clip manager photography. Curved scissors were then used to make a small ductotomy and the cystic duct. There was positive return of bile. A cholangiogram catheter was then inserted and cholangiograms were then performed using C arm fluoroscopy. This showed good opacification of the biliary tree without any obvious filling defects. We were within the cystic duct. The cystic duct was then clipped 3 times on the other side of the ductotomy and then transected using scissors. The cystic artery was then clipped and transected in a similar manner. Next, the gallbladder was then removed from the liver bed using Bovie electrocautery and a J-hook. Once the gallbladder was free, it was placed into a bag and brought out through the 10 mm trocar site. The fascia did not need to be stretched. The trocar was then replaced. The right upper quadrant was then irrigated with a liter of saline. Hemostasis was excellent. There were no signs of bowel or vascular injury. The fascia at the 10 mm trocar site was closed using an 0 PDS with the aid of the fascial closure device. This closed the fascia nicely. The remaining trocars were opened up and insufflation was allowed to escape. The trocars were removed. A total of 30 cc of local anesthetic were injected throughout the course of the operation. The incisions were then closed using 4-0 Vicryl. Skin glue was applied as dressing. She was awakened from anesthesia and taken recovery in good condition. Surgical Findings: Normal intraoperative cholangiogram Complications Complications: No Admit VTE Documentation VTE Present on Admission: No VTE Mechan Device Prophylaxis: SCD's VTE Pharm Prophylaxis ordered?: Yes
--- NOTE | 2025-07-18 13:27 | PCM.POST.ANE ---
Anesthesia: Postop Eval I Current Vital Signs Temperature: 96.6 F Pulse Rate: 87 Blood Pressure: 130/79 Respiratory Rate: 16 Pulse Ox: 97 Assessment Airway patent: Yes Spontaneous unlabored respirations: Yes nausea: No Vomiting: No Anesthesia Complication: No Fluid Hydration Crystalloid volume administer (ml): 600 Total IV fluid infused: 600 Progress Note Anesthesia document: Postop Eval 1 completed: Yes
--- NOTE | 2025-07-18 13:28 | PCM.POSTANE2 ---
Anesthesia Postop Eval I Sum Postop Eval Completion status Anesthesia document: Postop Eval 1 completed: Yes Anesthesia Postop Eval I Summary Anesthesia Postop Eval I Summary: Anesthesia Postop Eval I: Assessment Summary Airway patent Yes 07/18/25 13:27 Spontaneous unlabored Yes 07/18/25 13:27 respirations Mental status nausea No 07/18/25 13:27 Vomiting No 07/18/25 13:27 Anesthesia Postop Eval I: Fluid Summary Crystalloid volume administer 600 07/18/25 13:27 (ml) Colloids volume administered ( ml) Blood Product volume administered (ml) Total IV fluid infused 600 07/18/25 13:27 Anesthesia Postop Eval I: Summary Notes Anesthesia Complication No 07/18/25 13:27 Anesthesia Complication Comment: Post-operative progress note Anesthesia: Postop Eval II Evaluation Mental status: Awake and Calm Pain Level: 0 nausea: No Vomiting: No
--- NOTE | 2025-07-18 23:13 | US_ITS ---
PROCEDURE: GALLBLADDER 07/18/2025 REASON FOR EXAM: ? CHOLECYSTITIS TECHNIQUE: Procedure Code: USGB Modality: US Procedure: GALLBLADDER COMPARISON: Yesterday's CT FINDINGS: Liver: Grossly normal size and echotexture. Focal area hyperechoic adjacent to gallbladder fossa/lateral edge left lobe of liver 1.1 cm. No corresponding lesion on recent CT. Normal vascular flow to the hepatic and portal veins. Gallbladder: Normal-size with diffuse gallbladder wall thickening. Maximal thickness 8 mm. Minimal pericholecystic fluid. No stones. No pain with palpation. Common bile duct: Normal measuring 8 mm. Pancreas: Normal. Other: Right kidney measures 8.9 x 3.8 cm. US/Gallbladder IMPRESSION: Indeterminate appearance of the gallbladder with gallbladder wall thickening an d slight pericholecystic fluid. No gallstones evident. Possibly representing early cholecystitis. No evidence of ascites on recent CT and therefore gallbladder edema from ascite s is considered unlikely. Reading Location: [id number]
[2025-07-19 03:16] VITALS: BP 135/76; PULSE 64; RESP 16; TEMP 36.6; O2SAT 98
[2025-07-19 05:49] LABS: Hematocrit 38.1 % (37-47); Hemoglobin 12.5 g/dL (12.0-15.0); Immature Granulocytes Count 0.010 X10^3/uL (0.0-0.0); Mean Corp Hgb Conc 32.8 g/dL (32-36); Mean Corpuscular Volume 89.2 fL (81-99); Mean Platelet Vol. 11.0 fl (6.2-12.0); NRBC Flagged by Analyzer 0 % (0-5); Platelet Count 165 K/mm3 (150-450); RBC Distribution Width CV 13.1 % (11.6-14.6); RBC Distribution Width SD 42.9 fl (35.1-43.9); Red Blood Count 4.27 M/mm3 (4.2-5.4); White Blood Count 5.4 K/mm3 (4.4-11.0)
[2025-07-19 05:54] LABS: Prothrombin Time (Protime)PT. 14.5 SECONDS (11.7-14.9)
[2025-07-19 05:56] VITALS: BMI 27.0
[2025-07-19 06:12] LABS: AST(SGOT) 76 U/L (<=31); Alanine Aminotransfer ALT/SGPT 64 U/L (<=34); Albumin, Serum 3.8 g/dL (3.5-5.0); Alkaline Phosphatase 57 U/L (35-104); Anion Gap 10 (5-15); BUN 9 mg/dL (4-19); BUN/Creat Ratio 10.8 RATIO (10-20); Calcium,Total 8.9 mg/dL (7.6-11.0); Carbon Dioxide 20.3 mmol/L (21.0-32.0); Chloride 111 mmol/L (98-108); Estimated Creatinine Clearance 74.19 ml/min (50-250); Globulin 2.0 g/dL (2.2-4.2); Glucose 86 mg/dL (70-99); Magnesium 2.1 mg/dL (1.5-2.2); Potassium 3.9 mmol/L (3.3-5.1)
[2025-07-19 06:31] VITALS: BP 126/71; PULSE 86; RESP 18; TEMP 36.7; O2SAT 100
[2025-07-19] MEDS: 0.9% Saline Lock 10 ML Syringe IV ×2 (06:55→20:03)
--- NOTE | 2025-07-19 07:58 | PN.SURG_ITS ---
Subjective Subjective Patient evaluated resting comfortably in bed. She notes her main compliant is dizzy spells followed by nausea and frontal pressure. She notes having these symptoms prior to her hospitalization. She was told she may be having an episode of vertigo. She notes incisional discomfort. She notes only having liquids thus far. She does not feel hungry. Objective Data Objective Data Vital Signs: Vital Signs Temp Pulse Resp BP Pulse Ox O2 Del Method O2 Flow Rate 98.0 F 86 18 126/71 H 100 Room Air 2 07/19/25 06:07/19/25 06:07/19/25 06:07/19/25 06:07/19/25 06:07/19/25 06:07/18/25 14:00 Oxygen Flow Rate (L/min) 2 Oxygen Delivery Method Room Air Weight: 157 lb 6.561 oz Body Mass Index (BMI) 27.0 Intake & Output: Intake and Output for Last 24 Hours 07/17/25 07/18/25 07/19/25 23:59 23:59 23:59 Intake Total 1894.83 / 1894.83 Output Total 750 / 750 Balance 1894.83 / 1894.83 -750 / -750 Lab / Micro Data 07/19/25 05:00 07/19/25 05:00 Labs: Laboratory Results - last 24 hr 07/18/25 10:36: PT 14.1, INR 1.1, APTT 24.3 07/19/25 05:00: WBC 5.4, RBC 4.27, Hgb 12.5, Hct 38.1, MCV 89.2, MCH 29.3, MCHC 32.8, RDW Std Deviation 42.9, RDW Coeff of Marcie 13.1, Plt Count 165, MPV 11.0, Immature Gran % (Auto) 0.200, Neut % (Auto) 61.1, Lymph % (Auto) 26.9, [place] % (Auto) 9.7, Eos % (Auto) 1.9, Baso % (Auto) 0.2, Absolute Neuts (auto) 3.3, Absolute Lymphs (auto) 1.44, Nucleated RBC % 0, PT 14.5, INR 1.1, Sodium 141, Potassium 3.9, Chloride 111 H, Carbon Dioxide 20.3 L, Anion Gap 10, BUN 9, Creatinine 0.84, Estim Creat Clear Calc 74.19, Est GFR (MDRD) Non-Af 82, BUN/Creatinine Ratio 10.8, Glucose 86, Calcium 8.9, Magnesium 2.1, Total Bilirubin 0.39, AST 76 H, ALT 64 H, Alkaline Phosphatase 57, Total Protein 5.8 L , Albumin 3.8, Globulin 2.0 L, Albumin/Globulin Ratio 1.9 Radiography Diagnostic Testing: Radiology Impression Cholangiogram 07/18/25 10:11 IMPRESSION: As above. Reading Location: [address] Gallbladder Ultrasound 07/18/25 23:13 IMPRESSION: Indeterminate appearance of the gallbladder with gallbladder wall thickening and slight pericholecystic fluid. No gallstones evident. Possibly representing early cholecystitis. No evidence of ascites on recent CT and therefore gallbladder edema from ascites is considered unlikely. Reading Location: [facility] Physical Exam GI GI Narrative: Abdomen- soft, tenderness at incision sites. No erythema or infection noted. Assessment & Plan Assessment/Plan (1) Acute cholecystitis: PLAN: I am following this patient in conjunction with Dr. Stern. He will independently evaluate this patient Labs reviewed Currently on transitional diet. Encourage solid foods Possible vertigo versus sinus/viral infection Hopeful discharge later today Charges/Coding Visit Charges Inpatient E&M: 05695 Subs Hosp L1 (post-op; no charge)
[2025-07-19] MEDS: Pantoprazole Sodium 40 MG in 0.9% Normal Saline (100mL MB+) 100 ML 330 MG IV ×2 (09:45→20:05)
--- NOTE | 2025-07-19 09:46 | PCM.DC ---
Discharge Instructions DC O2, CPAP, BIPAP needs Home O2 Discharge instructions: No Dressing / Incision Discharge Activity: May Not Drive (3-5 days or while taking narcotic pain medication) and May Shower Lifting Restrictions: No lifting greater than 20 pounds for 2 weeks Dressing / Incision Call your doctor if your incision/area has: Continuous Slow Oozing, Sudden Increased Bleeding, Increased Pain/ Swelling, Increased Redness, Foul Smelling Discharge and Swelling at the incision site Call your doctor if you observe: Fever of 101 or Higher Suture Line Care: Avoid Pulling/Pushing and Avoid Pinching/Bending Cleanse incision/area with: Soap & Water Follow Up Care Please Follow Up With: Julita Denney PA-C When: Please contact our office at [phone], option #2 for a 2 week post-operative appointment Test Results: Test results from this visit will be discussed in further detail at your follow-up appointment, if applicable. Discharge Plan Admission Admit Date/Time: 07/17/25 23:08 Attending Provider: Basil Aleman Primary Care Provider: Justus Quiñones Consulting Providers: Kenyon Stern; Ira Wilson; Mane Rosen Discharge Orders/Prescriptions Prescriptions: New oxycodone 5 mg Tablet 5 mg PO Q6H PRN PRN (Reason: Pain Score 4-10) 3 Days Qty: 9 0RF Continued pantoprazole 40 MG tablet 40 mg PO DAILY Qty: 30 2RF ondansetron 4 mg tablet,disintegrating 4 mg PO Q8H PRN (Reason: nausea and vomiting) Qty: 10 0RF ondansetron 4 mg tablet,disintegrating 4 mg PO Q6H PRN (Reason: nausea and vomiting) Qty: 7 0RF hydroxyzine HCl 10 mg tablet 10 - 20 mg PO TID PRN PRN (Reason: anxiety) topiramate 100 mg tablet 100 mg PO BID Patient Comments: 50mg am and 50mg pm fluoxetine 40 mg capsule 40 mg PO DAILY rosuvastatin 5 mg tablet 5 mg PO DAILY Nurtec ODT 75 mg tablet,disintegrating 75 mg PO QODAY Referrals / Follow Up: Justus Quiñones MD [Primary Care Provider] - Julita Denney PA-C [Med Staff - [facility] Practice Prof] - 08/02/25
--- NOTE | 2025-07-19 10:00 | PN.HOSP_ITS ---
Reason for Visit Chief Complaint: Abd pain, N, vertigo, headache. Objective Data Objective Data Vital Signs: Vital Signs Temp Pulse Resp BP Pulse Ox O2 Del Method O2 Flow Rate 36.7 C 86 18 126/71 H 100 Room Air 2 07/19/25 06:31 07/19/25 06:31 07/19/25 06:31 07/19/25 06:31 07/19/25 06:31 07/19/25 06:07/18/25 14:00 Oxygen Flow Rate (L/min) 2 Oxygen Delivery Method Room Air Weight: 71.4 kg Body Mass Index (BMI) 27.0 Intake & Output: Intake and Output for Last 24 Hours 07/17/25 07/18/25 07/19/25 23:59 23:59 23:59 Intake Total 1894.83 / 1894.83 Output Total 750 / 750 Balance 1894.83 / 1894.83 -750 / -750 Lab / Micro Data 07/19/25 05:00 07/19/25 05:00 Labs: Laboratory Results - last 24 hr 07/18/25 10:36: PT 14.1, INR 1.1, APTT 24.3 07/19/25 05:00: WBC 5.4, RBC 4.27, Hgb 12.5, Hct 38.1, MCV 89.2, MCH 29.3, MCHC 32.8, RDW Std Deviation 42.9, RDW Coeff of Marcie 13.1, Plt Count 165, MPV 11.0, Immature Gran % (Auto) 0.200, Neut % (Auto) 61.1, Lymph % (Auto) 26.9, [place] % (Auto) 9.7, Eos % (Auto) 1.9, Baso % (Auto) 0.2, Absolute Neuts (auto) 3.3, Absolute Lymphs (auto) 1.44, Nucleated RBC % 0, PT 14.5, INR 1.1, Sodium 141, Potassium 3.9, Chloride 111 H, Carbon Dioxide 20.3 L, Anion Gap 10, BUN 9, Creatinine 0.84, Estim Creat Clear Calc 74.19, Est GFR (MDRD) Non-Af 82, BUN/Creatinine Ratio 10.8, Glucose 86, Calcium 8.9, Magnesium 2.1, Total Bilirubin 0.39, AST 76 H, ALT 64 H, Alkaline Phosphatase 57, Total Protein 5.8 L , Albumin 3.8, Globulin 2.0 L, Albumin/Globulin Ratio 1.9 Radiography Diagnostic Testing: Radiology Impression Cholangiogram 07/18/25 10:11 IMPRESSION: As above. Reading Location: [address] Assessment & Plan Assessment/Plan (1) Benign paroxysmal positional vertigo: (2) Abdominal pain: PLAN: Plan Acute cholecystitis * CT of the abdomen was questionable for acute cholecystitis. Ultrasound showing indeterminate appearance of the gallbladder with gallbladder wall thickening and slight Deshaun cholecystic fluid. * Seen by general surgery and patient advanced to transitional diet. Suspected BPPV. * Admitted to a monitored bed for symptom management * . Meclizine Acute migrainous attack * Patient is on Topamax discontinue added Phenergan in addition to ketorolac Chronic conditions * GERDOn PPI * Dyslipidemia? Patient is on rosuvastatin at home, with plans to resume on discharge * Depression with anxiety? Patient is on SSRI continue DVT prophylaxis ? On enoxaparin
--- NOTE | 2025-07-19 10:00 | PCM.PN.HOSP ---
Reason for Visit Chief Complaint: Abd pain, N, vertigo, headache. Subjective Subjective Still with dizziness when standing. Still with urinary retention. Objective Data Objective Data Vital Signs: Vital Signs Temp Pulse Resp BP Pulse Ox O2 Del Method O2 Flow Rate 36.7 C 86 18 126/71 H 100 Room Air 2 07/19/25 06:31 07/19/25 06:31 07/19/25 06:31 07/19/25 06:31 07/19/25 06:07/19/25 06:07/18/25 14:00 Oxygen Flow Rate (L/min) 2 Oxygen Delivery Method Room Air Weight: 71.4 kg Body Mass Index (BMI) 27.0 Intake & Output: Intake and Output for Last 24 Hours 07/17/25 07/18/25 07/19/25 23:59 23:59 23:59 Intake Total 1894.83 / 1894.83 Output Total 750 / 750 Balance 1894.83 / 1894.83 -750 / -750 Lab / Micro Data 07/19/25 05:00 07/19/25 05:00 Labs: Laboratory Results - last 24 hr 07/18/25 10:36: PT 14.1, INR 1.1, APTT 24.3 07/19/25 05:00: WBC 5.4, RBC 4.27, Hgb 12.5, Hct 38.1, MCV 89.2, MCH 29.3, MCHC 32.8, RDW Std Deviation 42.9, RDW Coeff of Marcie 13.1, Plt Count 165, MPV 11.0, Immature Gran % (Auto) 0.200, Neut % (Auto) 61.1, Lymph % (Auto) 26.9, [place] % (Auto) 9.7, Eos % (Auto) 1.9, Baso % (Auto) 0.2, Absolute Neuts (auto) 3.3, Absolute Lymphs (auto) 1.44, Nucleated RBC % 0, PT 14.5, INR 1.1, Sodium 141, Potassium 3.9, Chloride 111 H, Carbon Dioxide 20.3 L, Anion Gap 10, BUN 9, Creatinine 0.84, Estim Creat Clear Calc 74.19, Est GFR (MDRD) Non-Af 82, BUN/Creatinine Ratio 10.8, Glucose 86, Calcium 8.9, Magnesium 2.1, Total Bilirubin 0.39, AST 76 H, ALT 64 H, Alkaline Phosphatase 57, Total Protein 5.8 L, Albumin 3.8, Globulin 2.0 L, Albumin/Globulin Ratio 1.9 Radiography Diagnostic Testing: Radiology Impression Cholangiogram 07/18/25 10:11 IMPRESSION: As above. Reading Location: [address] Physical Exam Const alert and no apparent distress HEENT head/scalp atraumatic and moist oral mucous membranes Eyes Eyes Narrative: No nystagmus with lateral gaze but it became severely dizzy with looking to her left. Resp normal respiratory effort, no retractions, no use of accessory muscles and clear to auscultation bilaterally Cardio regular rate, regular rhythm, S1 normal heart sound and S2 normal heart sound GI normal to inspection, nondistended, normoactive bowel sounds, soft to palpation, non-tender and non-distended Extremity normal to inspection and full ROM Neuro Sensorium / Orientation: awake and alert Assessment & Plan Assessment/Plan (1) Benign paroxysmal positional vertigo: (2) Abdominal pain: PLAN: Plan Acute cholecystitis CT of the abdomen was questionable for acute cholecystitis. Ultrasound showing indeterminate appearance of the gallbladder with gallbladder wall thickening and slight Deshaun cholecystic fluid. Patient underwent laparoscopic cholecystectomy on the seventh Suspected BPPV. Admitted to a monitored bed for symptom management Continue with as needed meclizine. Patient still having symptoms but it sounds like her symptoms are much improved when she first developed this she cannot even focus her vision which she is able to do so now. Urinary retention Has required being straight cathetered to 3 times thus far already. Likely due to postanesthesia as well as narcotic pain medications. Encouraged to continue to drink fluids and I suspect, as I told her as well, that this should improve with time. Acute migrainous attack Patient is on Topamax discontinue added Phenergan in addition to ketorolac Chronic conditions GERD On PPI Dyslipidemia? Patient is on rosuvastatin at home, with plans to resume on discharge Depression with anxiety? Patient is on SSRI continue DVT prophylaxis ? On enoxaparin Will monitor overnight but hopefully patient is doing better from a dizziness perspective as well as the urinary retention perspective. Discussed with family at bedside Charges/Coding Visit Charges Inpatient E&M: 91978 Subs Hosp L2
[2025-07-19 10:42] VITALS: BP 105/90; BP 133/67; BP 139/81; PULSE 80; PULSE 91
[2025-07-19 12:30] VITALS: BP 124/70; PULSE 80; RESP 17; TEMP 36.6; O2SAT 98
--- NOTE | 2025-07-19 12:43 | CASEMGMT ---
Social Work SW provided the patient with resources for medical and prescription assistance. Patient reported she will have medical insurance in 60 days through her work. She does not want to apply for Medicaid. KEON Zambrano
[2025-07-19 17:10] VITALS: BP 140/65; PULSE 62; RESP 16; TEMP 36.7; O2SAT 100
[2025-07-19 21:00] VITALS: BP 118/61; PULSE 55; RESP 18; TEMP 37.1; O2SAT 99
[2025-07-20 03:45] VITALS: BP 124/77; PULSE 63; RESP 16; TEMP 35.8; O2SAT 98
[2025-07-20 06:00] VITALS: BMI 28.1
--- NOTE | 2025-07-20 07:09 | PCM.PN.SRG ---
Subjective Subjective Patient is evaluated sitting up in bed. She appears much more comfortable this morning. She noted a single episode of dizziness associated with nausea. She notes incisional tenderness. She has only drank liquids which has agreed with her. Objective Data Objective Data Vital Signs: Vital Signs Temp Pulse Resp BP Pulse Ox O2 Del Method O2 Flow Rate 96.5 F L 63 16 124/77 H 98 Room Air 2 07/20/25 03:45 07/20/25 03:45 07/20/25 03:45 07/20/25 03:45 07/20/25 03:45 07/20/25 03:45 07/18/25 14:00 Oxygen Flow Rate (L/min) 2 Oxygen Delivery Method Room Air Weight: 164 lb 0.383 oz Body Mass Index (BMI) 28.1 Intake & Output: Intake and Output for Last 24 Hours 07/18/25 07/19/25 07/20/25 23:59 23:59 23:59 Intake Total 1894.83 / 1894.83 920 / 920 Output Total 1600 / 1850 250 / 250 Balance 1894.83 / 1894.83 -680 / -930 -250 / -250 Lab / Micro Data 07/19/25 05:00 07/19/25 05:00 Physical Exam GI GI Narrative: Abdomen- soft, tenderness at the incision sites. Incisions c/d/i. No erythema or infection noted. Assessment & Plan Assessment/Plan (1) Acute cholecystitis: PLAN: I am following this patient in conjunction with Dr. Stern. Patient ready for discharge from a surgical standpoint Patient will need discharged to home on Lovenox for 4 additional doses of 40 mg SC Daily. Will send into our pharmacy Okay for discharge Charges/Coding Visit Charges Inpatient E&M: 68285 Subs Hosp L1 (post-op; no charge)
[2025-07-20 08:10] VITALS: O2SAT 96
--- NOTE | 2025-07-20 08:39 | PN.HOSP_ITS ---
Reason for Visit Chief Complaint: Abd pain, N, vertigo, headache. Subjective Subjective Still with dizziness, but feeling better. Urinating well. Has not needed to be straight cathed. Objective Data Objective Data Vital Signs: Vital Signs Temp Pulse Resp BP Pulse Ox O2 Del Method O2 Flow Rate 35.8 C L 63 16 124/77 H 96 Room Air 2 07/20/25 03:45 07/20/25 03:45 07/20/25 03:45 07/20/25 03:45 07/20/25 08:10 07/20/25 08:10 07/18/25 14:00 Oxygen Flow Rate (L/min) 2 Oxygen Delivery Method Room Air Weight: 74.4 kg Body Mass Index (BMI) 28.1 Intake & Output: Intake and Output for Last 24 Hours 07/18/25 07/19/25 07/20/25 23:59 23:59 23:59 Intake Total 1894.83 / 1894.83 920 / 920 Output Total 1600 / 1850 250 / 250 Balance 1894.83 / 1894.83 -680 / -930 -250 / -250 Lab / Micro Data 07/19/25 05:00 07/19/25 05:00 Physical Exam Const alert and no apparent distress HEENT HEENT Narrative: reproducible dizziness with left lateral gaze. no nystagmus. Assessment & Plan Assessment/Plan (1) Benign paroxysmal positional vertigo: (2) Abdominal pain: PLAN: Plan Acute cholecystitis * CT of the abdomen was questionable for acute cholecystitis. Ultrasound showing indeterminate appearance of the gallbladder with gallbladder wall thickening and slight Deshaun cholecystic fluid. * Patient underwent laparoscopic cholecystectomy on the seventh * Follow up with general surgery as outpt. Suspected BPPV. * Improving. * Continue with as needed meclizine. * Patient still having symptoms but it sounds like her symptoms are much improved when she first developed this she cannot even focus her vision which she is able to do so now. * Follow up for vestibular rehab. Urinary retention * Resolved * Has required being straight catheterized. Likely due to postanesthesia as well as narcotic pain medications. * Encouraged to continue to drink fluids and I suspect, as I told her as well, that this should improve with time. Chronic conditions * GERD On PPI * Dyslipidemia? Patient is on rosuvastatin at home, with plans to resume on discharge * Depression with anxiety? Patient is on SSRI continue DVT prophylaxis On enoxaparin
[2025-07-20 09:00] VITALS: BP 125/76; PULSE 52; RESP 16; TEMP 36.6; O2SAT 100
[2025-07-20] MEDS: Pantoprazole Sodium 40 MG in 0.9% Normal Saline (100mL MB+) 100 ML 330 MG IV (11:01)
[2025-07-20] MEDS: 0.9% Saline Lock 10 ML Syringe IV ×2 (11:01→13:19)
--- NOTE | 2025-07-20 11:09 | DS.PCM_ITS ---
Providers Date of Admission: 07/17/25 Primary Care Physician: Dr. Justus Quiñones MD Consultations 07/18/25 00:02 Consult: General Surgery Routine Consulting Provider: Kenyon Stern Reason for Consult: ? acute cholecysitis EMERGENT Consult: No MD Notified: Yes Date Notified: 07/17/25 Time Notified: 23:10 Method of Notification: ED Physician Initiated Reason For Visit: BPPV, ? CHOLECYSTITIS Diagnosis Discharge Diagnosis (1) Benign paroxysmal positional vertigo: Status: Acute Code(s): H81.10 - Benign paroxysmal vertigo, unspecified ear (2) Abdominal pain: Status: Acute Code(s): R10.9 - Unspecified abdominal pain Plan Acute cholecystitis * CT of the abdomen was questionable for acute cholecystitis. Ultrasound showing indeterminate appearance of the gallbladder with gallbladder wall thickening and slight Deshaun cholecystic fluid. * Patient underwent laparoscopic cholecystectomy on the seventh * Follow up with general surgery as outpt. Suspected BPPV. * Improving. * Continue with as needed meclizine. * Patient still having symptoms but it sounds like her symptoms are much improved when she first developed this she cannot even focus her vision which she is able to do so now. * Follow up for vestibular rehab. Urinary retention * Resolved * Has required being straight catheterized. Likely due to postanesthesia as well as narcotic pain medications. * Encouraged to continue to drink fluids and I suspect, as I told her as well, that this should improve with time. Chronic conditions * GERD On PPI * Dyslipidemia? Patient is on rosuvastatin at home, with plans to resume on discharge * Depression with anxiety? Patient is on SSRI continue DVT prophylaxis On enoxaparin Medications at Discharge Home Medications pantoprazole 40 mg tablet,delayed release 40 mg PO DAILY #30 tabs 10/10/16 ondansetron 4 mg disintegrating tablet 4 mg PO Q8H PRN nausea and vomiting #10 tabs 05/15/21 ondansetron 4 mg disintegrating tablet 4 mg PO Q6H PRN nausea and vomiting #7 tabs 03/29/25 fluoxetine 40 mg capsule 40 mg PO DAILY 07/07/25 hydroxyzine HCl 10 mg tablet 10 - 20 mg PO TID PRN PRN anxiety 07/07/25 rimegepant 75 mg disintegrating tablet (Nurtec ODT) 75 mg PO QODAY 07/07/25 rosuvastatin 5 mg tablet 5 mg PO DAILY 07/07/25 topiramate 100 mg tablet 100 mg PO BID 07/07/25 oxycodone 5 mg tablet 5 mg PO Q6H PRN PRN Pain Score 4-10 3 days #9 tabs 07/19/25 enoxaparin 40 mg/0.4 mL subcutaneous syringe 40 mg (0.4 mL) subcut DAILY 4 days #1.6 mL 07/20/25 meclizine 25 mg tablet 25 mg PO TID PRN dizziness #20 tabs 07/20/25 Hospital Course Operations - (lap lori. ) Weight / BMI Weight Weight: 74.4 kg Body Mass Index (BMI) 28.1 ABG / Lab / Microbiology Data 07/19/25 05:00 07/19/25 05:00 D/C Instructions Call your doctor if your incision/area has: Continuous Slow Oozing, Sudden Increased Bleeding, Increased Pain/ Swelling, Increased Redness, Foul Smelling Discharge and Swelling at the incision site Call your doctor if you observe: Fever of 101 or Higher Suture Line Care: Avoid Pulling/Pushing and Avoid Pinching/Bending Cleanse incision/area with: Soap & Water DC O2, CPAP, BIPAP Needs Home O2 Discharge instructions: No Please Follow Up With: Julita Denney PAGarth When: Please contact our office at [phone], option #2 for a 2 week post- operative appointment Meaningful Use Info Meaningful Use Meaningful Use Diagnoses (Choose all that apply): None applicable Discharge Plan Admission Admit Date/Time: 07/17/25 23:08 Primary Reason for Your Visit: cholecystitis. Attending Provider: Basil Aleman Primary Care Provider: Justus Quiñones Consulting Providers: Kenyon Stern; Ira Wilson; Mane Rosen Discharge Orders/Prescriptions Prescriptions: New oxycodone 5 mg Tablet 5 mg PO Q6H PRN PRN (Reason: Pain Score 4-10) 3 Days Qty: 9 0RF enoxaparin 40 mg/0.4 mL Syringe 40 mg subcut DAILY 4 Days Qty: 1.6 0RF meclizine 25 mg tablet 25 mg PO TID PRN (Reason: dizziness) Qty: 20 0RF Continued pantoprazole 40 MG tablet 40 mg PO DAILY Qty: 30 2RF ondansetron 4 mg tablet,disintegrating 4 mg PO Q8H PRN (Reason: nausea and vomiting) Qty: 10 0RF ondansetron 4 mg tablet,disintegrating 4 mg PO Q6H PRN (Reason: nausea and vomiting) Qty: 7 0RF hydroxyzine HCl 10 mg tablet 10 - 20 mg PO TID PRN PRN (Reason: anxiety) topiramate 100 mg tablet 100 mg PO BID Patient Comments: 50mg am and 50mg pm fluoxetine 40 mg capsule 40 mg PO DAILY rosuvastatin 5 mg tablet 5 mg PO DAILY Nurtec ODT 75 mg tablet,disintegrating 75 mg PO QODAY Other Ambulatory Orders: Physical Therapy Evaluation (Routine) Location: None Selected Ordered By: Dr. Basil Aleman Referrals / Follow Up: Justus Quiñones MD [Primary Care Provider] - Within 2 Weeks Julita Denney PA-C [[facility] - [facility]] - 08/02/25 Disposition Disposition (needs filled in before D/C Order can be placed): Home, Self Care Charges/Coding Visit Charges Inpatient E&M: 47042 Disch Hosp
[2025-07-20 11:14] VITALS: BP 100/56; PULSE 56; RESP 17; TEMP 36.6; O2SAT 99
--- NOTE | 2025-07-20 12:45 | CASEMGMT ---
Patient has order for discharge. Patient is discharging on Lovenox, STEPHANIE HAYNES called [facility] and copay is $21.28 and total cost for medications is $47.04. Patient is self pay. STEPHANIE HAYNES in to update patient regarding prescription costs, patient states she can afford medication. Patient states she has done injections in the past. Patient had no further questions or concerns.
[2025-07-20 14:16] VITALS: BP 100/56; PULSE 56; RESP 17; TEMP 36.6; O2SAT 99
--- NOTE | 2025-07-20 15:15 | PHA.DC.MR.R ---
Pharmacy [place] Med Reconciliation Pharmacy Service has performed discharge medication reconciliation for this patient. Medication education papers prepared, patient discharged when counseling was attempted. The patient's discharge medication list was reviewed for discrepancies and discrepancies were resolved. Medications at Discharge Home Medications pantoprazole 40 mg tablet,delayed release 40 mg PO DAILY #30 tabs 10/10/16 ondansetron 4 mg disintegrating tablet 4 mg PO Q8H PRN nausea and vomiting #10 tabs 05/15/21 ondansetron 4 mg disintegrating tablet 4 mg PO Q6H PRN nausea and vomiting #7 tabs 03/29/25 fluoxetine 40 mg capsule 40 mg PO DAILY 07/07/25 hydroxyzine HCl 10 mg tablet 10 - 20 mg PO TID PRN PRN anxiety 07/07/25 rimegepant 75 mg disintegrating tablet (Nurtec ODT) 75 mg PO QODAY 07/07/25 rosuvastatin 5 mg tablet 5 mg PO DAILY 07/07/25 topiramate 100 mg tablet 100 mg PO BID 07/07/25 oxycodone 5 mg tablet 5 mg PO Q6H PRN PRN Pain Score 4-10 3 days #9 tabs 07/19/25 enoxaparin 40 mg/0.4 mL subcutaneous syringe 40 mg (0.4 mL) subcut DAILY 4 days #1.6 mL 07/20/25 meclizine 25 mg tablet 25 mg PO TID PRN dizziness #20 tabs 07/20/25
== END 2025-07-20 15:04 | disposition home or self-care (01) ==
LOC: ED 23:19 → PCU 23:24
PROVIDERS: Anesthesiology; Internal Medicine; Surgery; Admitting Provider Family Medicine; Emergency Provider Emergency Medicine; PCP Family Medicine
PROC: (CPT 47563; principal; 2025-07-18 11:45)
DX: K81.2 Acute cholecystitis with chronic cholecystitis (principal); H81.10 Benign paroxysmal vertigo, unspecified ear; R33.9 Retention of urine, unspecified; E78.00 Pure hypercholesterolemia, unspecified; F41.8 Other specified anxiety disorders; D68.51 Activated protein C resistance; K21.9 Gastro-esophageal reflux disease without esophagitis; Z79.899 Other long term (current) drug therapy; N18.2 Chronic kidney disease, stage 2 (mild); R73.9 Hyperglycemia, unspecified; G43.709 Chronic migraine without aura, not intractable, without status migrainosus
CPT/HCPCS: 47563; 00790; 36415; 70450; 74177; 74300; 76000; 76705; 80053; 81001; 82077; 83690; 83735; 85025; 85610; 85730; 88304; 93005; 96361; 96365; 96366; 96372; 96375; 96376; 99221; 99285; Q9967; A4216; C1769; G0378; J2405